=== PATIENT | male | born 1970 | race Caucasian/White ===

== ENCOUNTER 2017-05-05 02:46 | Inpatient (IN) | payer OTHER ==
[2017-05-05] MEDS ORDERED: NORMAL SALINE 1000 ML 1,000 ML IV ONE (03:18)
[2017-05-05] MEDS ORDERED: NORMAL SALINE 1000 ML 1,000 ML IV PRN ×2 (03:18→11:13)
--- NOTE | 2017-05-05 03:24 | ER Document Report ---
ED Extremity Problem, Upper - General Chief Complaint: Fall Injury Stated Complaint: FALL, HIP PAIN Time Seen by Provider: 05/05/17 03:11 Mode of Arrival: Stretcher Information source: Patient Notes: 46 years old male presents today with generalized body aches and pain weak general weakness had a fall recently since then having pain over both hips. He also complained of pain over all the joints including wrists elbows shoulders hips knees and ankles. Says he has a history of osteoarthritis, and osteoporosis. Denies any recent head injury. Denies any fever chills or other constitutional symptoms. Difficult historian TRAVEL OUTSIDE OF THE [place] IN LAST 30 DAYS: No - Related Data Allergies/Adverse Reactions: Penicillins Allergy (Verified 08/18/14 12:03) Home Medications: Current Home Medications No Home Medications 05/05/17 [History] Past Medical History - Social History Smoking Status: Current Every Day Smoker Family History: Reviewed & Not Pertinent Musculoskeltal Medical History: Reports Hx Arthritis Past Surgical History: Reports: Hx Orthopedic Surgery - ACL repair, R elbow, L ankle - Immunizations Hx Diphtheria, Pertussis, Tetanus Vaccination: Yes Review of Systems - Review of Systems Notes: REVIEW OF SYSTEMS: CONSTITUTIONAL : As per history of complain EENT: Denies eye, ear, throat, or mouth pain or symptoms. Denies nasal or sinus congestion or discharge. Denies throat, tongue, or mouth swelling or difficulty swallowing. CARDIOVASCULAR: Denies chest pain. Denies palpitations or racing or irregular heart beat. Denies ankle edema. RESPIRATORY: Denies cough, cold, or chest congestion. Denies shortness of breath, difficulty breathing, or wheezing. GASTROINTESTINAL: Denies abdominal pain or distention. Denies nausea, vomiting , or diarrhea. Denies blood in vomitus, stools, or per rectum. Denies black, tarry stools. Denies constipation. GENITOURINARY: Denies difficulty urinating, painful urination, burning, frequency, blood in urine, or discharge. MUSCULOSKELETAL: As per history of complain SKIN: Denies rash, lesions or sores. HEMATOLOGIC : Denies easy bruising or bleeding. LYMPHATIC: Denies swollen, enlarged glands. NEUROLOGICAL: Denies confusion or altered mental status. Denies passing out or loss of consciousness. Denies dizziness or lightheadedness. Denies headache. Denies weakness or paralysis or loss of use of either side. Denies problems with gait or speech. Denies sensory loss, numbness, or tingling. Denies seizures. PSYCHIATRIC: Denies anxiety or stress. Denies depression, suicidal ideation, or homicidal ideation. ALL OTHER SYSTEMS REVIEWED AND NEGATIVE. Dictation was performed using [employer] voice recognition software PHYSICAL EXAMINATION: GENERAL: Appears sick, cachectic, sunken eyes HEAD: Atraumatic, normocephalic. EYES: Pupils equal round and reactive to light, extraocular movements intact, sclera anicteric, conjunctiva are normal. ENT: Nares patent, oropharynx clear without exudates. Moist mucous membranes. NECK: Normal range of motion, supple without lymphadenopathy LUNGS: Breath sounds clear to auscultation bilaterally and equal. No wheezes rales or rhonchi. HEART: Regular rate and rhythm without murmurs ABDOMEN: Soft, nontender, nondistended abdomen. No guarding, no rebound. No masses appreciated. Musculoskeletal: Right wrist-shows swelling and some very warm and extremely tender no erythema noted. No range of motion could be performed due to pain Right elbow shoulder, right shoulder, left shoulder elbow and wrist are not warm but tender to touch. Bilateral hip tenderness was noted, range of motion was limited due to pain. There were no injuries or swelling noted over the knee and ankle. NEUROLOGICAL: Cranial nerves grossly intact. Normal speech, normal gait. Normal sensory, motor exams PSYCH: Normal mood, normal affect. SKIN: Warm, Dry, normal turgor, no rashes or lesions noted. Physical Exam - Vital signs Vitals: Temp Pulse Resp BP Pulse Ox 99.1 F 119 H 18 134/81 H 100 05/05/17 02:56 05/05/17 02:56 05/05/17 02:56 05/05/17 02:56 05/05/17 02:56 Course - Re-evaluation Re-evalutation: 05/05/17 05:17 This case was discussed with hospitalist, entire lab results were reviewed with the patient and currently being admitted. - Vital Signs Vital signs: Temp Pulse Resp BP Pulse Ox 99.1 F 100 22 H 132/74 H 100 05/05/17 02:56 05/05/17 05:13 05/05/17 05:13 05/05/17 05:13 05/05/17 05:13 - Laboratory Result Diagrams: 05/05/17 03:35 05/05/17 04:00 Laboratory results interpreted by me: 05/05/17 05/05/17 03:35 04:00 WBC 20.6 H RBC 3.74 L Hgb 11.7 L Hct 33.6 L RDW 14.4 H Seg Neuts % (Manual) 85 H Lymphocytes % (Manual) 8 L Monocytes % (Manual) 2 L Abs Neuts (Manual) 18.5 H ESR 79 H Sodium 118.8 L* Chloride 91 L Carbon Dioxide 20 L BUN 26 H Glucose 257 H Uric Acid 2.6 L Calcium 7.7 L Total Bilirubin 1.5 H Direct Bilirubin 0.9 H C-Reactive Protein 215.6 H Total Protein 6.2 L Albumin 2.2 L Critical Care Note - Critical Care Note Total time excluding time spent on procedures (mins): 60 Comments: IV hydration, management of hyponatremia, leukocytosis. Discharge - Discharge Clinical Impression: Hyponatremia, Dehydration, Arthritis, wrist, Myalgia Leukocytosis Qualifiers: Leukocytosis type: leukemoid reaction Qualified Code(s): D72.823 - Leukemoid reaction Condition: Serious Disposition: ADMITTED INPATIENT Admitting Provider: Hospitalist - Dr. Andres Unit Admitted: Medical Floor - Dr. Andres
[2017-05-05] MEDS ORDERED: HYDROCODONE/ACETAMINOPHEN 10-325 MG TABLET PO ONE (03:43)
[2017-05-05] MEDS ORDERED: KETOROLAC TROMETHAMINE INJ/PF 30 MG/1 ML SDV IV ONE (03:43)
[2017-05-05 04:04] LABS: HEMATOCRIT 33.6 % (37.9-51.0); HEMOGLOBIN 11.7 g/dL (13.5-17.0); MEAN CORPUSCULAR HEMOGLOBIN 31.2 pg (27.0-33.4); MEAN CORPUSCULAR HGB CONC 34.7 g/dL (32.0-36.0); MEAN CORPUSCULAR VOLUME 90 fl (80-97); PLATELET COUNT 239 10^3/uL (150-450); RED BLOOD COUNT 3.74 10^6/uL (4.35-5.55); RED CELL DISTRIBUTION WIDTH 14.4 % (11.5-14.0); WHITE BLOOD COUNT 20.6 10^3/uL (4.0-10.5)
[2017-05-05 04:25] LABS: ALANINE AMINOTRANSFERASE 38 U/L (21-72); ALBUMIN 2.2 g/dL (3.5-5.0); ALKALINE PHOSPHATASE 112 U/L (38-126); ANION GAP 8 (5-19); ASPARTATE AMINO TRANSFERASE 32 U/L (17-59); BILIRUBIN,DIRECT 0.9 mg/dL (0.0-0.4); BILIRUBIN,TOTAL 1.5 mg/dL (0.2-1.3); BLOOD UREA NITROGEN 26 mg/dL (7-20); CALCIUM 7.7 mg/dL (8.4-10.2); CARBON DIOXIDE 20 mmol/L (22-30); CHLORIDE 91 mmol/L (98-107); GLUCOSE 257 mg/dL (75-110); POTASSIUM 4.8 mmol/L (3.6-5.0); TOTAL PROTEIN 6.2 g/dL (6.3-8.2); URIC ACID 2.6 mg/dL (3.5-8.5)
[2017-05-05 04:25] LABS: ABSOLUTE LYMPHOCYTES# (MANUAL) 1.6 10^3/uL (0.5-4.7); ABSOLUTE MONOCYTES # (MANUAL) 0.4 10^3/uL (0.1-1.4); ABSOLUTE NEUTROPHILS# (MANUAL) 18.5 10^3/uL (1.7-8.2); BAND NEUTROPHILS % (MANUAL) 5 % (3-5); BASOPHILS % (MANUAL) 0 % (0-2); EOSINOPHILS % (MANUAL) 0 % (0-6); LYMPHOCYTES % (MANUAL) 8 % (13-45); MONOCYTES % (MANUAL) 2 % (3-13); SEGMENTED NEUTROPHILS % (MAN) 85 % (42-78); TOTAL CELLS COUNTED 100; TOXIC GRANULATION 1+; TOXIC VACUOLATION PRESENT
[2017-05-05 04:26] LABS: ANISOCYTOSIS SLIGHT; PLATELET COMMENT ADEQUATE
[2017-05-05 04:41] LABS: C-REACTIVE PROTEIN 215.6 mg/L (<10.0)
[2017-05-05 04:42] LABS: ERYTHROCYTE SEDIMENTATION RATE 79 mm/hr (0-15)
--- NOTE | 2017-05-05 04:52 | RADIOLOGY REPORT (SQ) ---
EXAM DESCRIPTION: HIP BILATERAL CLINICAL HISTORY: 46 years, Male, Pain and swelling COMPARISON: None. NUMBER OF VIEWS:3 LIMITATIONS: None. FINDINGS: No evidence of fracture or dislocation. Mild CAM-type predisposition to femoral acetabular impingement on the right. Mild L4-L5 and L2-L3 disc desiccation. IMPRESSION: No acute findings. 2011 [facility] [employer]- All Rights Reserved
--- NOTE | 2017-05-05 04:56 | RADIOLOGY REPORT (SQ) ---
EXAM DESCRIPTION: WRIST RIGHT 2 VIEWS CLINICAL HISTORY: 46 years, Male, Pain and swelling COMPARISON: None. NUMBER OF VIEWS: 3 LIMITATIONS: None. FINDINGS: There is no evidence of significant bone or joint abnormality and area of indicated symptomatology at the ulnocarpal joint. Distal scaphoid is partially distorted likely due to positioning artifact. If there is pain associated with the scaphoid, consider obtaining dedicated scaphoid radiographic views. IMPRESSION: No acute findings. Limited scaphoid views. 2011 [employer]- All Rights Reserved
--- NOTE | 2017-05-05 05:00 | RADIOLOGY REPORT (SQ) ---
EXAM DESCRIPTION: CHEST PA/LAT CLINICAL HISTORY: 46 years, Male, Pain COMPARISON: None. NUMBER OF VIEWS: 2 LIMITATIONS: None. FINDINGS: Adequate lung volumes, prominent interstitium, normal cardiac silhouette, and intact bony thorax. IMPRESSION: No acute cardiopulmonary findings. 2011 [employer]- All Rights Reserved
[2017-05-05 05:04] LABS: SODIUM 118.8 mmol/L (137-145)
[2017-05-05] MEDS ORDERED: VANCOMYCIN HCL INJ 1000 MG VIAL ONE (05:23)
[2017-05-05] MEDS ORDERED: MAGNESIUM HYDROXIDE SUSP 30 ML UDCUP PO PRN (05:29)
[2017-05-05] MEDS ORDERED: NORMAL SALINE 1000 ML 1,000 ML IV SCH (05:30)
[2017-05-05] MEDS ORDERED: VANCOMYCIN HCL 0 MG in DEXTROSE 5%-WATER 250 ML IV NR (05:30)
[2017-05-05] MEDS ORDERED: HYDRALAZINE HCL INJ/PF 20 MG/1 ML SDV IV PRN (05:35)
[2017-05-05] MEDS ORDERED: DEXTROSE 50%-WATER 25 GM/50 ML DISP.SYRIN IV PRN ×2 (05:40)
[2017-05-05] MEDS ORDERED: DEXTROSE 40% GEL 15 GM TUBE PO PRN ×2 (05:40)
[2017-05-05] MEDS ORDERED: GLUCAGON,HUMAN RECOMB 1 MG INJ IM PRN (05:40)
[2017-05-05] MEDS ORDERED: VANCOMYCIN HCL INJ 1000 MG VIAL IV PRN (05:58)
[2017-05-05] MEDS ORDERED: CEFTRIAXONE 1 GM/D5W RTU 1 GM/50 ML RTUPB IV ONE (06:00)
[2017-05-05] MEDS ORDERED: VANCOMYCIN HCL 1,250 MG in DEXTROSE 5%-WATER 250 ML IV ONE (06:00)
[2017-05-05] MEDS ORDERED: NALOXONE HCL INJ/PF 0.4 MG/1 ML SDV ONE (07:57)
[2017-05-05] MEDS: IPRATROPIUM/ALBUTEROL 0.5-2.5 MG/3 ML AMPUL NEB SCH ×2 (09:02→16:00)
--- NOTE | 2017-05-05 09:03 | RADIOLOGY REPORT (SQ) ---
EXAM DESCRIPTION: CT HEAD WITHOUT COMPLETED DATE/TIME: 05/05/2017 8:24 am REASON FOR STUDY: altered mental status COMPARISON: None. TECHNIQUE: Axial images acquired through the brain without intravenous contrast. Images reviewed wi th bone, brain and subdural windows. Images stored on PACS. All CT scanners at this facility use dose modulation, iterative reconstruction, and/or weight based d osing when appropriate to reduce radiation dose to as low as reasonably achievable (ALARA). [facility]: Dose Right [facility]: CareDose [facility]: Dose Right [facility]: Teradose 4D [facility]: [employer] RADIATION DOSE: CT Rad equipment meets quality standard of care and radiation dose reduction techniq ues were employed. CTDIvol: 49.0 mGy. DLP: 1371 mGy-cm. mGy. LIMITATIONS: Motion artifact, patient scanned twice FINDINGS: On images without motion artifact, there is no gross acute intracranial hemorrhage, mass e ffect, or midline shift. No hydrocephalus. No gross skull fracture. Paranasal sinuses clear. IMPRESSION: Limited negative study EVIDENCE OF ACUTE STROKE: NO. COMMENT: Quality ID # [id number]: Final reports with documentation of one or more dose reduction techniques (e.g., Automated exposure control, adjustment of the mA and/or kV according to patient size, use of iterative reconstruction technique) TECHNICAL DOCUMENTATION: JOB ID: [id number] [employer]- All Rights Reserved
--- NOTE | 2017-05-05 10:24 | RADIOLOGY REPORT (SQ) ---
EXAM DESCRIPTION: L SPINE WHOLE COMPLETED DATE/TIME: 05/05/2017 10:09 am REASON FOR STUDY: Back pain COMPARISON: None. NUMBER OF VIEWS: Five views including obliques. TECHNIQUE: AP, lateral, oblique, and sacral radiographic images acquired of the lumbar spine. LIMITATIONS: None. FINDINGS: MINERALIZATION: Normal. SEGMENTATION: Normal. No transitional anatomy. ALIGNMENT: Normal. VERTEBRAE: Maintained height. No fracture or worrisome bone lesion. DISCS: Disc space loss of height at T11-12, T12-L1, L4-5 with mild anterior osteophyte formation. POSTERIOR ELEMENTS: Pedicles and facets are intact. No pars defect or posterior arch defects. HARDWARE: None in the spine. PARASPINAL SOFT TISSUES: Normal. PELVIS: SI joints unremarkable. OTHER: No other significant finding. IMPRESSION: No acute fracture or malalignment. Multilevel disc space loss of height with anterior osteophyte formation TECHNICAL DOCUMENTATION: JOB ID: [id number] [employer]- All Rights Reserved
[2017-05-05 10:31] LABS: ANION GAP 10 (5-19); BLOOD UREA NITROGEN 32 mg/dL (7-20); CALCIUM 7.8 mg/dL (8.4-10.2); CARBON DIOXIDE 20 mmol/L (22-30); CHLORIDE 93 mmol/L (98-107); GLUCOSE 219 mg/dL (75-110); POTASSIUM 4.5 mmol/L (3.6-5.0); SODIUM 122.7 mmol/L (137-145)
--- NOTE | 2017-05-05 10:41 | PDOC CONSULTATION ---
History of Present Illness Admission Date/PCP: 05/05/17 05:33 Patient complains of: Joint pains and low back pain History of Present Illness: SUSHIL JARA is a 46 year old male who presents to emergency room with joint pain throughout his body, generalized weakness and myalgia. He apparently sustained a fall and according to his significant this occurred about 2 days ago and has been having pain ever since. Denies specific injury but has been lethargic since it began. Otherwise patient is poor historian unable to obtain full HPI. The patient mainly complains of pain in his low back to me today. Past Medical History Musculoskeltal Medical History: Reports: Arthritis Psychiatric Medical History: Denies: Depression Past Surgical History Past Surgical History: Reports: Orthopedic Surgery - ACL repair, R elbow, L ankle Social History Smoking Status: Current Every Day Smoker Cigarettes Packs Per Day: 1 Frequency of Alcohol Use: Rare Hx Recreational Drug Use: Yes Drugs: Heroin, Methadone Hx Prescription Drug Abuse: No - Advance Directive Resuscitation Status: Full Code Family History Family History: Reviewed & Not Pertinent Parental Family History Reviewed: No Children Family History Reviewed: Unknown Sibling(s) Family History Reviewed.: Unknown Medication/Allergy Home Medications: No Home Medications 05/05/17 Allergies/Adverse Reactions: Penicillins Allergy (Verified 08/18/14 12:03) Review of Systems Constitutional: PRESENT: fatigue, weakness. ABSENT: chills, fever(s), headache( s), weight gain, weight loss Eyes: ABSENT: visual disturbances Ears: ABSENT: hearing changes Cardiovascular: ABSENT: chest pain, dyspnea on exertion, edema, orthropnea, palpitations Respiratory: ABSENT: cough, hemoptysis Gastrointestinal: ABSENT: abdominal pain, constipation, diarrhea, hematemesis, hematochezia, nausea, vomiting Genitourinary: ABSENT: dysuria, hematuria Musculoskeletal: PRESENT: joint swelling, muscle weakness Integumentary: ABSENT: rash, wounds Neurological: ABSENT: abnormal gait, abnormal speech, confusion, dizziness, focal weakness, syncope Psychiatric: ABSENT: anxiety, depression, homidical ideation, suicidal ideation Endocrine: ABSENT: cold intolerance, heat intolerance, menstrual abnormalities, polydipsia, polyuria Hematologic/Lymphatic: ABSENT: easy bleeding, easy bruising, lymphadenopathy Physical Exam Vital Signs: Temp Pulse Resp BP Pulse Ox 97.5 F 75 20 139/77 H 98 05/05/17 08:12 05/05/17 09:00 05/05/17 09:00 05/05/17 08:12 05/05/17 09:00 General appearance: PRESENT: disheveled, well-developed, well-nourished Head exam: PRESENT: atraumatic, normocephalic Eye exam: PRESENT: conjunctiva pink, EOMI, PERRLA. ABSENT: scleral icterus Ear exam: PRESENT: normal external ear exam Mouth exam: PRESENT: moist, tongue midline Teeth exam: PRESENT: poor dentation Neck exam: PRESENT: full ROM. ABSENT: carotid bruit, JVD, lymphadenopathy, thyromegaly Respiratory exam: PRESENT: unlabored Cardiovascular exam: PRESENT: RRR. ABSENT: diastolic murmur, rubs, systolic murmur Pulses: PRESENT: normal dorsalis pedis pul, +2 pedal pulses bilateral Vascular exam: PRESENT: normal capillary refill GI/Abdominal exam: PRESENT: normal bowel sounds, tenderness - Along the right lower quadrant. ABSENT: distended, guarding, mass, organolmegaly, rebound Rectal exam: PRESENT: deferred Extremities exam: PRESENT: other Musculoskeletal exam: PRESENT: other - Examination of all extremities demonstrate mild swelling along the dorsum of the right wrist no erythema noted. Patient has some tenderness on the distal ulna but no pain with pronation and supination or range of motion. Patient has no pain with ankle, knee elbow or range of motion. Do not appreciate effusion of the wrists, elbow or knees. Range of motion of the hips do elicit some discomfort patient has intact straight leg raise. Intact plantar flexion/dorsiflexion. Occasionally with internal rotation occasionally without internal rotation. Difficult exam given patient's lethargy. No conspicuous skin lesions appreciated. No significant bone tenderness throughout. Maximal point tenderness along the left SI joint and flank. No skin changes or abnormality appreciated on inspection. Neurological exam: PRESENT: alert, awake, oriented to person, oriented to place , oriented to time, oriented to situation, CN II-XII grossly intact. ABSENT: motor sensory deficit Psychiatric exam: PRESENT: appropriate affect, normal mood. ABSENT: homicidal ideation, suicidal ideation Skin exam: PRESENT: dry, intact, warm. ABSENT: cyanosis, rash Results Laboratory Results: 05/05/17 09:24 05/05/17 09:24 Sodium 122.7 L Potassium 4.5 Chloride 93 L Carbon Dioxide 20 L Anion Gap 10 BUN 32 H Creatinine 0.76 Est GFR ( Amer) > 60 Est GFR (Non-Af Amer) > 60 Glucose 219 H Calcium 7.8 L Impressions: Head CT 05/05/17 00:00 IMPRESSION: Limited negative study EVIDENCE OF ACUTE STROKE: NO. Lumbar Spine X-Ray 05/05/17 00:00 IMPRESSION: No acute fracture or malalignment. Multilevel disc space loss of height with anterior osteophyte formation Hip X-Ray 05/05/17 03:18 IMPRESSION: No acute findings. 2010 [employer]- All Rights Reserved Wrist X-Ray 05/05/17 03:18 IMPRESSION: No acute findings. Limited scaphoid views. 2010 [employer] All Rights Reserved Chest X-Ray 05/05/17 03:23 IMPRESSION: No acute cardiopulmonary findings. 2010 [employer]- All Rights Reserved Status: Image reviewed by me - I have reviewed patient's radiographs of his hips and right wrist. No osseous abnormality appreciated. Normal soft tissue shadows. Assessment & Plan - Diagnosis (1) Myalgia Is this a current diagnosis for this admission?: Yes Plan: Patient has evidence of polyarthralgias and myalgias it is somewhat concerning with his leukocytosis and elevated sed rate and CRP. But at this juncture unable to elicit discomfort throughout his joints despite the emergency room physicians report of significant pain and swelling of his right wrist I am unable to elicit significant discomfort on examination of this today. There is some mild swelling but would anticipate the patient had septic arthritis it was causing significantly more pain with more swelling as well. His major area of complaint was along his SI joint which there is some degenerative changes on radiographs but at this point I have recommended lumbar spine x-ray which may demonstrate abnormality possibility of underlying discitis or vertebral osteomyelitis would remain in the differential diagnosis.
[2017-05-05] MEDS: HEPARIN SOD (PORCINE) 5,000 UNIT/ML 1 ML SYRINGE SUBCUT SCH ×3 (12:29→22:32)
[2017-05-05 12:43] LABS: ARTERIAL BLOOD BASE EXCESS -1.1 mmol/L; ARTERIAL BLOOD FIO2 40%; ARTERIAL BLOOD HCO3 22.3 mmol/L (20-26); ARTERIAL BLOOD O2 SATURATION 99.2 % (94-98); ARTERIAL BLOOD PCO2 33.1 mmHg (35-45); ARTERIAL BLOOD PH 7.45 (7.35-7.45); ARTERIAL BLOOD PO2 168.6 mmHg (80-100); ARTERIAL BLOOD TOTAL CO2 23.4 mmol/L (23-27)
[2017-05-05 12:48] LABS: AMORPHOUS SEDIMENT,URINE TRACE /HPF; APPEARANCE,URINE SLIGHTLY-CLOUDY; BILIRUBIN,URINE NEGATIVE (NEGATIVE); COLOR,URINE AMBER; GLUCOSE, URINE >=500 mg/dL (NEGATIVE); KETONES,URINE NEGATIVE (NEGATIVE); LEUKOCYTE ESTERASE,URINE NEGATIVE (NEGATIVE); NITRITE,URINE NEGATIVE (NEGATIVE); PROTEIN,URINE 30 mg/dL (NEGATIVE); URINE SPECIFIC GRAVITY 1.022
[2017-05-05 13:24] LABS: ANION GAP 8 (5-19); BLOOD UREA NITROGEN 34 mg/dL (7-20); CARBON DIOXIDE 20 mmol/L (22-30); CHLORIDE 95 mmol/L (98-107); GLUCOSE 186 mg/dL (75-110); SODIUM 123.4 mmol/L (137-145)
[2017-05-05 13:25] LABS: URINE BARBITURATES SCREEN NEGATIVE; URINE BENZODIAZEPINES SCREEN NEGATIVE; URINE COCAINE SCREEN NEGATIVE; URINE MARIJUANA (THC) SCREEN NEGATIVE; URINE METHADONE SCREEN NEGATIVE; URINE PHENCYCLIDINE SCREEN NEGATIVE
[2017-05-05 13:37] LABS: POTASSIUM 5.9 mmol/L (3.6-5.0)
--- NOTE | 2017-05-05 14:00 | XCELERA REPORT ---
[address] [address] Transthoracic Echocardiogram Report Name: SUSHIL JARA Age: 46 yrs Gender: Male : 1970 Patient Status: Inpatient Patient Location: [address] [place], [place] [address] Study Date: 05/05/2017 10:40 AM Height: 69 in Weight: 136 lb BSA: 1.8 m2 Procedure: A two-dimensional transthoracic echocardiogram with color flow and Doppler was performed. Study Quality: Fair. Reason For Study: iv drug use w murmur History: iv drug use w murmur. Ordering Physician: VALERIA AGUIRRE Performed By: Liliya Bustillos Interpretation Summary The left ventricle is normal in size. There is normal left ventricular wall thickness. LV EF is > than 60% Left ventricular systolic function is normal. Doppler measurements suggest normal left ventricular diastolic function The left ventricular wall motion is normal. There is no thrombus. There is no ventricular septal defect visualized. The right ventricle is normal in size and function. The right atrium is normal. The left atrial size is normal. The interatrial septum is intact with no evidence for an atrial septal defect. There is no evidence of mitral valve prolapse. There is no vegetation seen on the mitral valve. There is no mitral valve stenosis. There is a trace amount of mitral regurgitation There is no aortic valvular vegetation. There is no aortic valve stenosis There is no LVOT obstruction. No aortic regurgitation is present. There is no tricuspid stenosis. There is a mild amount of tricuspid regurgitation Right ventricular systolic pressure is normal. RVSP is 24 mm of Hg , with RA mean of 5. There is no pericardial effusion. MMode/2D Measurements & Calculations RVDd: 2.1 cm LVIDd: 4.6 cm FS: 31.1 % Ao root diam: 3.0 cm IVSd: 0.96 cm LVIDs: 3.2 cm EDV(Teich): 97.7 ml LVPWd: 0.97 cm ESV(Teich): 40.2 ml Ao root area: 7.2 cm2 EF(Teich): 58.8 % Doppler Measurements & Calculations MV E max wen: MV dec slope: Ao V2 max: LV V1 max P.0 cm/sec 148.2 cm/sec 7.6 mmHg MV A max wen: 498.5 cm/sec2 Ao max PG: LV V1 max: 64.4 cm/sec MV dec time: 8.8 mmHg 138.1 cm/sec MV E/A: 1.6 0.21 sec PA V2 max: TR max wen: 105.5 cm/sec 218.0 cm/sec PA max P.5 mmHgTR max P.0 mmHg Left Ventricle The left ventricle is normal in size. There is normal left ventricular wall thickness. LV EF is > than 60%. Left ventricular systolic function is normal. Doppler measurements suggest normal left ventricular diastolic function. The left ventricular wall motion is normal. There is no thrombus. There is no ventricular septal defect visualized. Right Ventricle The right ventricle is normal in size and function. Atria The right atrium is normal. The left atrial size is normal. The interatrial septum is intact with no evidence for an atrial septal defect. Mitral Valve There is no evidence of mitral valve prolapse. There is no vegetation seen on the mitral valve. There is no mitral valve stenosis. There is a trace amount of mitral regurgitation. Aortic Valve There is no aortic valvular vegetation. There is no aortic valve stenosis. There is no LVOT obstruction. No aortic regurgitation is present. Tricuspid Valve There is no tricuspid stenosis. There is a mild amount of tricuspid regurgitation. Right ventricular systolic pressure is normal. RVSP is 24 mm of Hg , with RA mean of 5. Pulmonic Valve There is no pulmonic valvular stenosis. There is no pulmonic valvular regurgitation. Great Vessels The aortic root is normal size. Effusions There is no pericardial effusion. : VALERIA AGUIRRE > Emilie Bustillos
--- NOTE | 2017-05-05 14:31 | Progress Note ---
Provider Note Provider Note: I have reviewed patient's lumbar spine films which are negative in terms of pathologic lesion to indicate underlying discitis or vertebral osteomyelitis. Currently do not appreciate findings of septic arthritis throughout his examination. Will sign off thank you for this consultation please contact me if issues arise concerning this patient.
--- NOTE | 2017-05-05 15:08 | PDOC PROGRESS REPORT ---
Subjective Progress Note for:: 05/05/17 Subjective:: Pt is seen on morning rounds for follow up of sepsis. He is found resting in bed. He is somnolent and difficult to arouse, responding only to a sternal rub. He does not respond to or answer questions at this time. A patient's friend and/or family member who introduces herself as a girlfriend, fianc, and at different times of the conversation states that he was feeling well earlier this week but fell approximately 2 days ago. She states that since that time he has complained of multiple joint pain, especially to the knees and wrists. She does state that the patient has recently used heroin and methamphetamines. She denies benzodiazepine abuse. She states that the last time he had alcohol was approximately 6 weeks ago, but prior to that he was a heavy drinker. Reason For Visit: SEPSIS ENDOCARDITIS, POLYARTHRITIS, IV DRUG ABUSE Physical Exam Vital Signs: Temp Pulse Resp BP Pulse Ox 97.4 F 104 H 22 H 154/95 H 100 05/05/17 12:14 05/05/17 12:14 05/05/17 12:14 05/05/17 12:14 05/05/17 12:14 Pulse Oximeter Continuous Start: 05/05/17 11: 26 Freq: RTQ4 Status: Active Document 05/05/17 12:00 [facility] (Rec: 05/05/17 12:22 LDA [email or web address]) Pulse Oximetry Assessment Oxygen Saturation (92-100) 100 Oxygen Delivery Method Bi-pap Fraction of Inspired Oxygen (FIO2) 40 Equipment Usage Initial Set Up Continuous Pulse Oximeter 24 Hour Charge Charge Now Continuous SpO2 Machine # [id number] Intake & Output 05/04/17 05/05/17 05/06/17 06:59 06:59 06:59 Output Total 650 Balance -650 Weight 72.4 kg General appearance: PRESENT: no acute distress, disheveled, well-developed, well -nourished Head exam: PRESENT: atraumatic, normocephalic Eye exam: PRESENT: conjunctiva pink, EOMI, PERRLA. ABSENT: scleral icterus Ear exam: PRESENT: normal external ear exam Mouth exam: PRESENT: moist, tongue midline Neck exam: ABSENT: carotid bruit, JVD, lymphadenopathy, thyromegaly Respiratory exam: PRESENT: clear to auscultation antonio, rhonchi - throughout, symmetrical, unlabored, other - snoring respirations with 10-15 second pauses noted. ABSENT: rales, wheezes Cardiovascular exam: PRESENT: RRR, +S1, +S2. ABSENT: diastolic murmur, rubs, systolic murmur Pulses: PRESENT: normal dorsalis pedis pul Vascular exam: PRESENT: normal capillary refill GI/Abdominal exam: PRESENT: normal bowel sounds, soft. ABSENT: distended, guarding, mass, organolmegaly, rebound, tenderness Rectal exam: PRESENT: deferred Extremities exam: PRESENT: full ROM. ABSENT: calf tenderness, clubbing, pedal edema Neurological exam: PRESENT: other - somnolent, responsive to sternal rub. ABSENT: motor sensory deficit Psychiatric exam: PRESENT: appropriate affect, normal mood. ABSENT: homicidal ideation, suicidal ideation Skin exam: PRESENT: dry, intact, warm. ABSENT: cyanosis, rash Results Laboratory Results: 05/05/17 13:03 05/05/17 05/05/17 05/05/17 09:24 12:02 12:10 Carbonic Acid 1.00 L HCO3/H2CO3 Ratio 22:1 ABG pH 7.45 ABG pCO2 33.1 L ABG pO2 168.6 H ABG HCO3 22.3 ABG O2 Saturation 99.2 H ABG Base Excess -1.1 FiO2 40% Sodium 122.7 L Potassium 4.5 Chloride 93 L Carbon Dioxide 20 L Anion Gap 10 BUN 32 H Creatinine 0.76 Est GFR ( Amer) > 60 Est GFR (Non-Af Amer) > 60 Glucose 219 H Calcium 7.8 L Urine Color DEJUAN Urine Appearance SLIGHTLY-CLOUDY Urine pH 5.0 Ur Specific [place] 1.022 Urine Protein 30 H Urine Glucose (UA) >=500 H Urine Ketones NEGATIVE Urine Blood MODERATE H Urine Nitrite NEGATIVE Ur Leukocyte Esterase NEGATIVE Urine WBC (Auto) 5 Urine RBC (Auto) 4 05/05/17 13:03 Carbonic Acid HCO3/H2CO3 Ratio ABG pH ABG pCO2 ABG pO2 ABG HCO3 ABG O2 Saturation ABG Base Excess FiO2 Sodium 123.4 L Potassium 5.9 H D Chloride 95 L Carbon Dioxide 20 L Anion Gap 8 BUN 34 H Creatinine 0.67 Est GFR ( Amer) > 60 Est GFR (Non-Af Amer) > 60 Glucose 186 H Calcium 8.0 L Urine Color Urine Appearance Urine pH Ur Specific [place] Urine Protein Urine Glucose (UA) Urine Ketones Urine Blood Urine Nitrite Ur Leukocyte Esterase Urine WBC (Auto) Urine RBC (Auto) Impressions: Head CT 05/05/17 00:00 IMPRESSION: Limited negative study EVIDENCE OF ACUTE STROKE: NO. Lumbar Spine X-Ray 05/05/17 00:00 IMPRESSION: No acute fracture or malalignment. Multilevel disc space loss of height with anterior osteophyte formation Hip X-Ray 05/05/17 03:18 IMPRESSION: No acute findings. 2010 [employer]- All Rights Reserved Wrist X-Ray 05/05/17 03:18 IMPRESSION: No acute findings. Limited scaphoid views. 2010 [employer] All Rights Reserved Chest X-Ray 05/05/17 03:23 IMPRESSION: No acute cardiopulmonary findings. 2010 [employer]- All Rights Reserved Assessment & Plan - Diagnosis (1) Acute metabolic encephalopathy Is this a current diagnosis for this admission?: Yes Plan: Likely secondary to sepsis and hyponatremia. Aspirations, seizure, and fall precautions in place. Head CT negative for acute processes; no evidence of stroke. LFTs normal. Will provide supportive care. (2) Hyponatremia Is this a current diagnosis for this admission?: Yes Plan: Trending upward (118.8--> 122.7--> 123.4) Pt is currently receiving IVF. BMP scheduled q4 hours. (3) Leukocytosis Qualifiers: Leukocytosis type: leukemoid reaction Qualified Code(s): D72.823 - Leukemoid reaction Is this a current diagnosis for this admission?: Yes Plan: Leukocytosis 20.6. Unclear etiology. Orthopedics were consulted for consideration of septic arthritis and have since determined this to be unlikely and have signed off. Blood and urine cultures are pending. Echocardiogram was completed; no evidence of vegetation. Pt will likely require a DOMINGO in the near future to further asses for endocarditis. He has been empirically placed on Vancomycin and Rocephin. (4) Myalgia Is this a current diagnosis for this admission?: Yes Plan: Patient with complaint of polyarticular arthritic pains. Initial workup revealed leukocytosis of 20.6. Imaging of the lumbar spine, lateral hips and right wrist were obtained: No acute findings. Urine for gonorrhea is pending to evaluate for gonococcal arthritis. Septic arthritis has been ruled out by orthopedics. (5) Amphetamine abuse Is this a current diagnosis for this admission?: Yes
[2017-05-05] MEDS: VANCOMYCIN HCL 750 MG in DEXTROSE 5%-WATER 250 ML IV SCH ×2 (15:15→22:30)
[2017-05-05] MEDS: DOCUSATE SODIUM 100 MG CAPSULE PO SCH ×2 (15:15→17:27)
[2017-05-05] MEDS ORDERED: SODIUM POLYSTYRENE SULFONATE 15 GM/60 ML PO ONE (15:30)
[2017-05-05] MEDS: ACETAMINOPHEN 325 MG TABLET PO PRN (15:47)
[2017-05-05 17:17] LABS: ANION GAP 8 (5-19); BLOOD UREA NITROGEN 31 mg/dL (7-20); CALCIUM 7.6 mg/dL (8.4-10.2); CARBON DIOXIDE 20 mmol/L (22-30); CHLORIDE 92 mmol/L (98-107); GLUCOSE 257 mg/dL (75-110)
[2017-05-05] MEDS: INSULIN LISPRO 100 UNIT/ML 3 ML VIAL SUBCUT PRN ×2 (17:24→22:31)
[2017-05-05 17:28] LABS: POTASSIUM 4.6 mmol/L (3.6-5.0)
[2017-05-05 17:30] LABS: SODIUM 119.7 mmol/L (137-145)
[2017-05-05 21:20] LABS: ANION GAP 10 (5-19); BLOOD UREA NITROGEN 28 mg/dL (7-20); CALCIUM 7.5 mg/dL (8.4-10.2); CARBON DIOXIDE 17 mmol/L (22-30); CHLORIDE 95 mmol/L (98-107); GLUCOSE 210 mg/dL (75-110)
[2017-05-06] MEDS: IPRATROPIUM/ALBUTEROL 0.5-2.5 MG/3 ML AMPUL NEB SCH ×4 (00:18→23:36)
[2017-05-06 01:00] LABS: ANION GAP 6 (5-19); BLOOD UREA NITROGEN 23 mg/dL (7-20); CALCIUM 7.4 mg/dL (8.4-10.2); CARBON DIOXIDE 21 mmol/L (22-30); CHLORIDE 96 mmol/L (98-107); GLUCOSE 198 mg/dL (75-110); POTASSIUM 4.1 mmol/L (3.6-5.0); SODIUM 123.4 mmol/L (137-145)
[2017-05-06] MEDS: KETOROLAC TROMETHAMINE INJ/PF 30 MG/1 ML SDV IV PRN ×3 (03:32→23:07)
[2017-05-06] MEDS ORDERED: NALOXONE HCL INJ/PF 0.4 MG/1 ML SDV ONE (04:58)
[2017-05-06] MEDS ORDERED: NALOXONE HCL INJ/PF 0.4 MG/1 ML SDV IV ONE (05:45)
[2017-05-06 05:48] LABS: HEMATOCRIT 30.9 % (37.9-51.0); HEMOGLOBIN 10.6 g/dL (13.5-17.0); MEAN CORPUSCULAR HEMOGLOBIN 30.7 pg (27.0-33.4); MEAN CORPUSCULAR HGB CONC 34.4 g/dL (32.0-36.0); MEAN CORPUSCULAR VOLUME 89 fl (80-97); PLATELET COUNT 190 10^3/uL (150-450); RED BLOOD COUNT 3.46 10^6/uL (4.35-5.55); RED CELL DISTRIBUTION WIDTH 14.2 % (11.5-14.0); WHITE BLOOD COUNT 15.8 10^3/uL (4.0-10.5)
[2017-05-06] MEDS: VANCOMYCIN HCL 750 MG in DEXTROSE 5%-WATER 250 ML IV SCH ×2 (05:51→14:22)
[2017-05-06] MEDS: HEPARIN SOD (PORCINE) 5,000 UNIT/ML 1 ML SYRINGE SUBCUT SCH ×3 (05:52→21:34)
[2017-05-06 05:59] LABS: ANION GAP 8 (5-19); BLOOD UREA NITROGEN 19 mg/dL (7-20); CALCIUM 7.2 mg/dL (8.4-10.2); CARBON DIOXIDE 20 mmol/L (22-30); CHLORIDE 95 mmol/L (98-107); GLUCOSE 195 mg/dL (75-110); POTASSIUM 3.9 mmol/L (3.6-5.0); SODIUM 122.7 mmol/L (137-145)
[2017-05-06 06:50] LABS: ABSOLUTE LYMPHOCYTES# (MANUAL) 0.9 10^3/uL (0.5-4.7); ABSOLUTE MONOCYTES # (MANUAL) 0.3 10^3/uL (0.1-1.4); ABSOLUTE NEUTROPHILS# (MANUAL) 14.4 10^3/uL (1.7-8.2); BAND NEUTROPHILS % (MANUAL) 8 % (3-5); BASOPHILS % (MANUAL) 0 % (0-2); EOSINOPHILS % (MANUAL) 1 % (0-6); LYMPHOCYTES % (MANUAL) 6 % (13-45); MONOCYTES % (MANUAL) 2 % (3-13); SEGMENTED NEUTROPHILS % (MAN) 83 % (42-78); TOTAL CELLS COUNTED 100
[2017-05-06 06:51] LABS: TOXIC GRANULATION SLIGHT; TOXIC VACUOLATION PRESENT
[2017-05-06 06:52] LABS: ANISOCYTOSIS SLIGHT; PLATELET COMMENT ADEQUATE
[2017-05-06] MEDS: CEFTRIAXONE 1 GM/D5W RTU 1 GM/50 ML RTUPB IV SCH (08:35)
[2017-05-06] MEDS: INSULIN LISPRO 100 UNIT/ML 3 ML VIAL SUBCUT PRN ×3 (08:49→21:35)
[2017-05-06] MEDS: DOCUSATE SODIUM 100 MG CAPSULE PO SCH ×2 (09:02→17:52)
[2017-05-06] MEDS: NORMAL SALINE 1000 ML 1,000 ML IV PRN ×2 (10:45→17:52)
--- NOTE | 2017-05-06 13:07 | PDOC PROGRESS REPORT ---
Subjective Progress Note for:: 05/06/17 Subjective:: Pt is seen on morning rounds for follow up. He is found resting in bed. He is somnolent and difficult to arouse, responding to sternal rub. He does wake and briefly answer questions. He initially states that he is feeling "just fine," but then tells me that he is in excruciating pain to his shoulders, hips, lower back and right knee. However, he then falls back to sleep mid sentence. The patient and significant other are informed that there are questions of ongoing drug use in the hospital room, to which they both deny. They are advised that any further suspicious behavior will result in limitations on visitors and potentially a request for law enforcement to search the room. The have no additional questions or concerns today. Reason For Visit: SEPSIS ENDOCARDITIS, POLYARTHRITIS, IV DRUG ABUSE Physical Exam Vital Signs: Temp Pulse Resp BP Pulse Ox 98.3 F 102 H 26 H 144/74 H 100 05/06/17 07:38 05/06/17 07:52 05/06/17 12:43 05/06/17 07:38 05/06/17 12:43 Pulse Oximeter Continuous Start: 05/05/17 11: 26 Freq: RTQ4 Status: Active Document 05/06/17 12:43 TPO (Rec: 05/06/17 12:44 TPO [email or web address]) Pulse Oximetry Assessment Oxygen Saturation (92-100) 100 Oxygen Delivery Method Bi-pap Fraction of Inspired Oxygen (FIO2) 40 Equipment Usage Equipment in Use Continuous SpO2 Machine # 11 Intake & Output 05/05/17 05/06/17 05/07/17 06:59 06:59 06:59 Intake Total 4736 Output Total 2500 Balance 2236 Weight 77.3 kg General appearance: PRESENT: no acute distress, disheveled, well-developed, well -nourished Head exam: PRESENT: atraumatic, normocephalic Eye exam: PRESENT: conjunctiva pink, EOMI, PERRLA. ABSENT: scleral icterus Ear exam: PRESENT: normal external ear exam Mouth exam: PRESENT: moist, tongue midline Neck exam: ABSENT: carotid bruit, JVD, lymphadenopathy, thyromegaly Respiratory exam: PRESENT: rhonchi, symmetrical, unlabored. ABSENT: rales, wheezes Cardiovascular exam: PRESENT: RRR, tachycardia. ABSENT: diastolic murmur, rubs , systolic murmur Pulses: PRESENT: normal dorsalis pedis pul Vascular exam: PRESENT: normal capillary refill GI/Abdominal exam: PRESENT: normal bowel sounds, soft. ABSENT: distended, guarding, mass, organolmegaly, rebound, tenderness Rectal exam: PRESENT: deferred Extremities exam: PRESENT: full ROM. ABSENT: calf tenderness, clubbing, pedal edema Neurological exam: PRESENT: oriented to person, oriented to place, oriented to situation, CN II-XII grossly intact, other - arousable. ABSENT: oriented to time, motor sensory deficit Psychiatric exam: PRESENT: appropriate affect, normal mood. ABSENT: homicidal ideation, suicidal ideation Skin exam: PRESENT: dry, intact, warm. ABSENT: cyanosis, rash Results Laboratory Results: 05/06/17 05:33 05/06/17 05:33 05/05/17 05/05/17 05/05/17 12:10 13:03 16:40 WBC RBC Hgb Hct MCV MCH MCHC RDW Plt Count Seg Neutrophils % Lymphocytes % Monocytes % Eosinophils % Basophils % Absolute Neutrophils Absolute Lymphocytes Absolute Monocytes Absolute Eosinophils Absolute Basophils Sodium 123.4 L 119.7 L* Potassium 5.9 H D 4.6 D Chloride 95 L 92 L Carbon Dioxide 20 L 20 L Anion Gap 8 8 BUN 34 H 31 H Creatinine 0.67 0.67 Est GFR ( Amer) > 60 > 60 Est GFR (Non-Af Amer) > 60 > 60 Glucose 186 H 257 H Calcium 8.0 L 7.6 L Urine Color DEJUAN Urine Appearance SLIGHTLY-CLOUDY Urine pH 5.0 Ur Specific [place] 1.022 Urine Protein 30 H Urine Glucose (UA) >=500 H Urine Ketones NEGATIVE Urine Blood MODERATE H Urine Nitrite NEGATIVE Ur Leukocyte Esterase NEGATIVE Urine WBC (Auto) 5 Urine RBC (Auto) 4 05/05/17 05/06/17 05/06/17 20:43 00:31 05:33 WBC 15.8 H RBC 3.46 L Hgb 10.6 L Hct 30.9 L MCV 89 MCH 30.7 MCHC 34.4 RDW 14.2 H Plt Count 190 Seg Neutrophils % Not Reportable Lymphocytes % Not Reportable Monocytes % Not Reportable Eosinophils % Not Reportable Basophils % Not Reportable Absolute Neutrophils Not Reportable Absolute Lymphocytes Not Reportable Absolute Monocytes Not Reportable Absolute Eosinophils Not Reportable Absolute Basophils Not Reportable Sodium 122.0 L 123.4 L Potassium 4.0 4.1 Chloride 95 L 96 L Carbon Dioxide 17 L 21 L Anion Gap 10 6 BUN 28 H 23 H Creatinine 0.56 0.52 Est GFR ( Amer) > 60 > 60 Est GFR (Non-Af Amer) > 60 > 60 Glucose 210 H 198 H Calcium 7.5 L 7.4 L Urine Color Urine Appearance Urine pH Ur Specific [place] Urine Protein Urine Glucose (UA) Urine Ketones Urine Blood Urine Nitrite Ur Leukocyte Esterase Urine WBC (Auto) Urine RBC (Auto) 05/06/17 05:33 WBC RBC Hgb Hct MCV MCH MCHC RDW Plt Count Seg Neutrophils % Lymphocytes % Monocytes % Eosinophils % Basophils % Absolute Neutrophils Absolute Lymphocytes Absolute Monocytes Absolute Eosinophils Absolute Basophils Sodium 122.7 L Potassium 3.9 Chloride 95 L Carbon Dioxide 20 L Anion Gap 8 BUN 19 Creatinine 0.50 L Est GFR ( Amer) > 60 Est GFR (Non-Af Amer) > 60 Glucose 195 H Calcium 7.2 L Urine Color Urine Appearance Urine pH Ur Specific [place] Urine Protein Urine Glucose (UA) Urine Ketones Urine Blood Urine Nitrite Ur Leukocyte Esterase Urine WBC (Auto) Urine RBC (Auto) Impressions: Head CT 05/05/17 00:00 IMPRESSION: Limited negative study EVIDENCE OF ACUTE STROKE: NO. Lumbar Spine X-Ray 05/05/17 00:00 IMPRESSION: No acute fracture or malalignment. Multilevel disc space loss of height with anterior osteophyte formation Hip X-Ray 05/05/17 03:18 IMPRESSION: No acute findings. 2010 [employer]- All Rights Reserved Wrist X-Ray 05/05/17 03:18 IMPRESSION: No acute findings. Limited scaphoid views. 2010 [employer]- All Rights Reserved Chest X-Ray 05/05/17 03:23 IMPRESSION: No acute cardiopulmonary findings. 2010 [employer]- All Rights Reserved Assessment & Plan - Diagnosis (1) Bacteremia Is this a current diagnosis for this admission?: Yes Plan: Blood cultures are positive for gram-positive cocci. PT freely admits to recent and ongoing IV drug use. This is concerning for endocarditis. Echocardiogram was completed; no evidence of vegetation. Will begin daily blood cultures in anticipation of need for PICC. Pt will likely require a DOMINGO in the near future to further asses for endocarditis. He has been empirically placed on Vancomycin and Rocephin. (2) Acute metabolic encephalopathy Is this a current diagnosis for this admission?: Yes Plan: Likely secondary to sepsis and hyponatremia vs ongoing drug use. Aspirations, seizure, and fall precautions in place. Head CT negative for acute processes; no evidence of stroke. LFTs normal. Will provide supportive care. (3) Hyponatremia Is this a current diagnosis for this admission?: Yes Plan: Trending upward. Fall, seizure, aspiration precautions are in place Pt is currently receiving IVF. BMP scheduled q6 hours. (4) Leukocytosis Qualifiers: Leukocytosis type: leukemoid reaction Qualified Code(s): D72.823 - Leukemoid reaction Is this a current diagnosis for this admission?: Yes Plan: Leukocytosis 20.6 --> 15.8; likely secondary to bacteremia and probable endocarditis as the patient has admitted to ongoing IV drug use. Orthopedics were consulted for consideration of septic arthritis and have since determined this to be unlikely and have signed off. Blood cultures are positive for gram-positive cocci Urine cultures are pending. Echocardiogram was completed; no evidence of vegetation. Pt will likely require a DOMINGO in the near future to further asses for endocarditis. He has been empirically placed on Vancomycin and Rocephin. (5) Myalgia Is this a current diagnosis for this admission?: Yes Plan: Patient with complaint of polyarticular arthritic pains; likely chronic in nature. Imaging of the lumbar spine, lateral hips and right wrist were obtained: No acute findings. Urine for gonorrhea is pending to evaluate for gonococcal arthritis. Septic arthritis has been ruled out by orthopedics. (6) Amphetamine abuse Is this a current diagnosis for this admission?: Yes - Time Time Spent with patient: 15-24 minutes Medications reviewed and adjusted accordingly: Yes
[2017-05-06 14:57] LABS: ANION GAP 10 (5-19); BLOOD UREA NITROGEN 18 mg/dL (7-20); CARBON DIOXIDE 21 mmol/L (22-30); CHLORIDE 92 mmol/L (98-107); GLUCOSE 180 mg/dL (75-110); POTASSIUM 3.7 mmol/L (3.6-5.0); SODIUM 122.7 mmol/L (137-145)
[2017-05-06 15:01] LABS: VANCOMYCIN,TROUGH 6.3 ug/mL (5.0-20.0)
[2017-05-06] MEDS: VANCOMYCIN HCL 1,250 MG in DEXTROSE 5%-WATER 250 ML IV SCH (17:52)
[2017-05-06 21:01] LABS: ANION GAP 7 (5-19); BLOOD UREA NITROGEN 17 mg/dL (7-20); CALCIUM 7.3 mg/dL (8.4-10.2); CARBON DIOXIDE 21 mmol/L (22-30); CHLORIDE 94 mmol/L (98-107); GLUCOSE 274 mg/dL (75-110); POTASSIUM 3.5 mmol/L (3.6-5.0); SODIUM 121.8 mmol/L (137-145)
[2017-05-07] MEDS: VANCOMYCIN HCL 1,250 MG in DEXTROSE 5%-WATER 250 ML IV SCH ×4 (00:40→17:15)
[2017-05-07 05:12] LABS: HEMATOCRIT 29.8 % (37.9-51.0); HEMOGLOBIN 10.2 g/dL (13.5-17.0); MEAN CORPUSCULAR HEMOGLOBIN 30.8 pg (27.0-33.4); MEAN CORPUSCULAR HGB CONC 34.4 g/dL (32.0-36.0); MEAN CORPUSCULAR VOLUME 89 fl (80-97); PLATELET COUNT 188 10^3/uL (150-450); RED BLOOD COUNT 3.33 10^6/uL (4.35-5.55); RED CELL DISTRIBUTION WIDTH 14.5 % (11.5-14.0); WHITE BLOOD COUNT 16.4 10^3/uL (4.0-10.5)
[2017-05-07] MEDS: HEPARIN SOD (PORCINE) 5,000 UNIT/ML 1 ML SYRINGE SUBCUT SCH ×3 (05:35→21:47)
[2017-05-07 05:40] LABS: ANION GAP 8 (5-19); BLOOD UREA NITROGEN 16 mg/dL (7-20); CALCIUM 7.1 mg/dL (8.4-10.2); CARBON DIOXIDE 21 mmol/L (22-30); CHLORIDE 97 mmol/L (98-107); GLUCOSE 154 mg/dL (75-110); POTASSIUM 3.6 mmol/L (3.6-5.0); SODIUM 125.9 mmol/L (137-145)
[2017-05-07 06:15] LABS: ABSOLUTE MONOCYTES # (MANUAL) 0.3 10^3/uL (0.1-1.4); ABSOLUTE NEUTROPHILS# (MANUAL) 15.1 10^3/uL (1.7-8.2); BAND NEUTROPHILS % (MANUAL) 4 % (3-5); BASOPHILS % (MANUAL) 0 % (0-2); EOSINOPHILS % (MANUAL) 0 % (0-6); LYMPHOCYTES % (MANUAL) 6 % (13-45); MONOCYTES % (MANUAL) 2 % (3-13); SEGMENTED NEUTROPHILS % (MAN) 88 % (42-78); TOTAL CELLS COUNTED 100
[2017-05-07 06:17] LABS: POLYCHROMASIA SLIGHT; TOXIC GRANULATION 1+; TOXIC VACUOLATION PRESENT
[2017-05-07 06:18] LABS: ANISOCYTOSIS SLIGHT; PLATELET COMMENT ADEQUATE
[2017-05-07] MEDS: IPRATROPIUM/ALBUTEROL 0.5-2.5 MG/3 ML AMPUL NEB SCH ×2 (08:14→16:07)
[2017-05-07] MEDS: CEFTRIAXONE 1 GM/D5W RTU 1 GM/50 ML RTUPB IV SCH (08:15)
[2017-05-07] MEDS: NORMAL SALINE 1000 ML 1,000 ML IV PRN ×3 (08:21→22:00)
--- NOTE | 2017-05-07 10:07 | PDOC PROGRESS REPORT ---
Subjective Progress Note for:: 05/07/17 Subjective:: Complains of generalized pain. Reason For Visit: SEPSIS ENDOCARDITIS, POLYARTHRITIS, IV DRUG ABUSE Physical Exam Vital Signs: Temp Pulse Resp BP Pulse Ox 98.7 F 112 H 20 145/75 H 96 05/07/17 08:07 05/07/17 08:14 05/07/17 08:14 05/07/17 08:07 05/07/17 08:14 Pulse Oximeter Continuous Start: 05/05/17 11: 26 Freq: RTQ4 Status: Active Document 05/07/17 08:14 TPO (Rec: 05/07/17 08:21 TPO [email or web address]) Pulse Oximetry Assessment Oxygen Saturation (92-100) 96 Oxygen Flow Rate (L/min) 2 Oxygen Delivery Method Nasal Cannula Fraction of Inspired Oxygen (FIO2) 28 Equipment Usage Equipment in Use Continuous SpO2 Machine # 11 Intake & Output 05/06/17 05/07/17 05/08/17 06:59 06:59 06:59 Intake Total 4736 5072 Output Total 9019 2250 Balance 2236 2822 Weight 77.3 kg 78 kg General appearance: PRESENT: no acute distress Eye exam: PRESENT: conjunctiva pink. ABSENT: scleral icterus Mouth exam: PRESENT: moist, tongue midline Neck exam: ABSENT: JVD Respiratory exam: PRESENT: clear to auscultation antonio. ABSENT: rales, rhonchi, wheezes Cardiovascular exam: PRESENT: RRR. ABSENT: diastolic murmur, rubs, systolic murmur GI/Abdominal exam: PRESENT: normal bowel sounds, soft. ABSENT: distended, guarding, mass, organolmegaly, rebound, tenderness Extremities exam: ABSENT: calf tenderness, clubbing, pedal edema Neurological exam: PRESENT: alert, awake, oriented to person, oriented to place , oriented to time, oriented to situation, CN II-XII grossly intact. ABSENT: motor sensory deficit Psychiatric exam: PRESENT: appropriate affect Skin exam: PRESENT: dry, intact, warm. ABSENT: cyanosis, rash Results Laboratory Results: 05/07/17 04:36 05/07/17 04:36 05/06/17 05/06/17 05/06/17 13:57 13:57 20:10 WBC RBC Hgb Hct MCV MCH MCHC RDW Plt Count Seg Neutrophils % Lymphocytes % Monocytes % Eosinophils % Basophils % Absolute Neutrophils Absolute Lymphocytes Absolute Monocytes Absolute Eosinophils Absolute Basophils Sodium 122.7 L 121.8 L Potassium 3.7 3.5 L Chloride 92 L 94 L Carbon Dioxide 21 L 21 L Anion Gap 10 7 BUN 18 17 Creatinine Cancelled 0.51 L 0.50 L Est GFR ( Amer) Cancelled > 60 > 60 Est GFR (Non-Af Amer) Cancelled > 60 > 60 Glucose 180 H 274 H Calcium 7.0 L* 7.3 L 05/07/17 05/07/17 04:36 04:36 WBC 16.4 H RBC 3.33 L Hgb 10.2 L Hct 29.8 L MCV 89 MCH 30.8 MCHC 34.4 RDW 14.5 H Plt Count 188 Seg Neutrophils % Not Reportable Lymphocytes % Not Reportable Monocytes % Not Reportable Eosinophils % Not Reportable Basophils % Not Reportable Absolute Neutrophils Not Reportable Absolute Lymphocytes Not Reportable Absolute Monocytes Not Reportable Absolute Eosinophils Not Reportable Absolute Basophils Not Reportable Sodium 125.9 L Potassium 3.6 Chloride 97 L Carbon Dioxide 21 L Anion Gap 8 BUN 16 Creatinine 0.51 L Est GFR ( Amer) > 60 Est GFR (Non-Af Amer) > 60 Glucose 154 H Calcium 7.1 L Impressions: Head CT 05/05/17 00:00 IMPRESSION: Limited negative study EVIDENCE OF ACUTE STROKE: NO. Lumbar Spine X-Ray 05/05/17 00:00 IMPRESSION: No acute fracture or malalignment. Multilevel disc space loss of height with anterior osteophyte formation Hip X-Ray 05/05/17 03:18 IMPRESSION: No acute findings. 2010 [employer]- All Rights Reserved Wrist X-Ray 05/05/17 03:18 IMPRESSION: No acute findings. Limited scaphoid views. 2010 [employer] All Rights Reserved Chest X-Ray 05/05/17 03:23 IMPRESSION: No acute cardiopulmonary findings. 2010 [employer]- All Rights Reserved Assessment & Plan - Diagnosis (1) Acute metabolic encephalopathy Is this a current diagnosis for this admission?: Yes Plan: Resolved. Most likely secondary to substance abuse. (2) Bacteremia Is this a current diagnosis for this admission?: Yes Plan: The patient is growing gram-positive cocci. He most likely has endocarditis given history of drug abuse. Will check blood cultures daily until they are negative. Once the holidays are done we will need referral for a transesophageal echo to evaluate for vegetations given the fact that his transthoracic was negative for vegetations. Continue with vancomycin and Rocephin. (3) Dehydration Is this a current diagnosis for this admission?: Yes Plan: Improving with IV fluids. (4) Hyponatremia Is this a current diagnosis for this admission?: Yes Plan: Improving - Time Time Spent with patient: 25-34 minutes - Inpatient Certification Medical Necessity: Need for IV Antibiotics
[2017-05-07] MEDS: KETOROLAC TROMETHAMINE INJ/PF 30 MG/1 ML SDV IV PRN ×2 (10:20→20:12)
[2017-05-07] MEDS: DOCUSATE SODIUM 100 MG CAPSULE PO SCH ×2 (10:20→17:15)
[2017-05-07 12:43] LABS: VANCOMYCIN,TROUGH 14.4 ug/mL (5.0-20.0)
[2017-05-07] MEDS: INSULIN LISPRO 100 UNIT/ML 3 ML VIAL SUBCUT PRN ×3 (13:39→21:58)
[2017-05-07] MEDS ORDERED: MORPHINE SULFATE 10 MG/ML INJ IV ONE (22:00)
[2017-05-08] MEDS: IPRATROPIUM/ALBUTEROL 0.5-2.5 MG/3 ML AMPUL NEB SCH ×4 (00:03→23:44)
[2017-05-08] MEDS: VANCOMYCIN HCL 1,250 MG in DEXTROSE 5%-WATER 250 ML IV SCH ×3 (00:14→11:58)
[2017-05-08 05:16] LABS: ABSOLUTE BASOPHILS # (AUTO) 0.1 10^3/uL (0.0-0.2); ABSOLUTE LYMPHOCYTES (AUTO) 1.2 10^3/uL (0.5-4.7); ABSOLUTE MONOCYTES (AUTO) 0.4 10^3/uL (0.1-1.4); ABSOLUTE NEUT (AUTO) 12.6 10^3/uL (1.7-8.2); BASOPHILS % (AUTO) 0.6 % (0-2); EOSINOPHILS % (AUTO) 0.2 % (0-6); HEMATOCRIT 30.3 % (37.9-51.0); HEMOGLOBIN 10.4 g/dL (13.5-17.0); LYMPHOCYTES % (AUTO) 8.2 % (13-45); MEAN CORPUSCULAR HEMOGLOBIN 30.7 pg (27.0-33.4); MEAN CORPUSCULAR HGB CONC 34.4 g/dL (32.0-36.0); MEAN CORPUSCULAR VOLUME 89 fl (80-97); MONOCYTES % (AUTO) 2.6 % (3-13); PLATELET COUNT 217 10^3/uL (150-450); RED BLOOD COUNT 3.41 10^6/uL (4.35-5.55); RED CELL DISTRIBUTION WIDTH 14.7 % (11.5-14.0); SEGMENTED NEUTROPHILS % (AUTO) 88.4 % (42-78); TOTAL CELLS COUNTED % (AUTO) 100 %; WHITE BLOOD COUNT 14.2 10^3/uL (4.0-10.5)
[2017-05-08 05:39] LABS: ANION GAP 8 (5-19); BLOOD UREA NITROGEN 14 mg/dL (7-20); CALCIUM 7.1 mg/dL (8.4-10.2); CARBON DIOXIDE 22 mmol/L (22-30); CHLORIDE 98 mmol/L (98-107); GLUCOSE 149 mg/dL (75-110); POTASSIUM 3.7 mmol/L (3.6-5.0); SODIUM 127.5 mmol/L (137-145)
[2017-05-08] MEDS: HEPARIN SOD (PORCINE) 5,000 UNIT/ML 1 ML SYRINGE SUBCUT SCH ×3 (05:41→23:01)
[2017-05-08] MEDS: NORMAL SALINE 1000 ML 1,000 ML IV PRN ×2 (07:03→18:31)
[2017-05-08] MEDS: CEFTRIAXONE 1 GM/D5W RTU 1 GM/50 ML RTUPB IV SCH (08:12)
[2017-05-08] MEDS: DOCUSATE SODIUM 100 MG CAPSULE PO SCH ×2 (09:20→17:23)
[2017-05-08] MEDS: KETOROLAC TROMETHAMINE INJ/PF 30 MG/1 ML SDV IV PRN ×3 (09:20→23:09)
--- NOTE | 2017-05-08 12:40 | PDOC PROGRESS REPORT ---
Subjective Progress Note for:: 05/08/17 Subjective:: Complains of generalized pain. Reason For Visit: SEPSIS ENDOCARDITIS, POLYARTHRITIS, IV DRUG ABUSE Physical Exam Vital Signs: Temp Pulse Resp BP Pulse Ox 99.6 F 90 16 150/74 H 98 05/08/17 07:28 05/08/17 08:34 05/08/17 08:34 05/08/17 07:28 05/08/17 12:00 Pulse Oximeter Continuous Start: 05/05/17 11: 26 Freq: RTQ4 Status: Active Document 05/08/17 12:00 LDA (Rec: 05/08/17 12:04 LDA [email or web address]) Pulse Oximetry Assessment Oxygen Saturation (92-100) 98 Oxygen Flow Rate (L/min) 1 Oxygen Delivery Method Nasal Cannula Equipment Usage Equipment in Use Continuous SpO2 Machine # [id number] Intake & Output 05/07/17 05/08/17 05/09/17 06:59 06:59 06:59 Intake Total 5072 5587 Output Total 2250 2850 Balance 2822 2737 Weight 78 kg 85.6 kg General appearance: PRESENT: no acute distress Eye exam: PRESENT: conjunctiva pink. ABSENT: scleral icterus Mouth exam: PRESENT: moist, tongue midline Neck exam: ABSENT: JVD Respiratory exam: PRESENT: clear to auscultation antonio. ABSENT: rales, rhonchi, wheezes Cardiovascular exam: PRESENT: RRR. ABSENT: diastolic murmur, rubs, systolic murmur GI/Abdominal exam: PRESENT: normal bowel sounds, soft. ABSENT: distended, guarding, mass, organolmegaly, rebound, tenderness Extremities exam: ABSENT: calf tenderness, clubbing, pedal edema Neurological exam: PRESENT: alert, awake, oriented to person, oriented to place , oriented to time, oriented to situation, CN II-XII grossly intact. ABSENT: motor sensory deficit Psychiatric exam: PRESENT: appropriate affect Skin exam: PRESENT: dry, intact, warm. ABSENT: cyanosis, rash Results Laboratory Results: 05/08/17 04:55 05/08/17 04:55 05/07/17 05/08/17 05/08/17 11:38 04:55 04:55 WBC 14.2 H RBC 3.41 L Hgb 10.4 L Hct 30.3 L MCV 89 MCH 30.7 MCHC 34.4 RDW 14.7 H Plt Count 217 Seg Neutrophils % 88.4 H Lymphocytes % 8.2 L Monocytes % 2.6 L Eosinophils % 0.2 Basophils % 0.6 Absolute Neutrophils 12.6 H Absolute Lymphocytes 1.2 Absolute Monocytes 0.4 Absolute Eosinophils 0.0 Absolute Basophils 0.1 Sodium 127.5 L Potassium 3.7 Chloride 98 Carbon Dioxide 22 Anion Gap 8 BUN 14 Creatinine 0.54 0.42 L Est GFR ( Amer) > 60 > 60 Est GFR (Non-Af Amer) > 60 > 60 Glucose 149 H Calcium 7.1 L 05/05/17 16:40 Blood Blood Culture - Final Staphylococcus Aureus 05/05/17 17:35 Blood Blood Culture - Final Staphylococcus Aureus 05/05/17 12:10 Catheterized Urine Urine Culture - Final Staphylococcus Aureus Impressions: Head CT 05/05/17 00:00 IMPRESSION: Limited negative study EVIDENCE OF ACUTE STROKE: NO. Lumbar Spine X-Ray 05/05/17 00:00 IMPRESSION: No acute fracture or malalignment. Multilevel disc space loss of height with anterior osteophyte formation Hip X-Ray 05/05/17 03:18 IMPRESSION: No acute findings. 2010 [employer]- All Rights Reserved Wrist X-Ray 05/05/17 03:18 IMPRESSION: No acute findings. Limited scaphoid views. 2010 [employer]- All Rights Reserved Chest X-Ray 05/05/17 03:23 IMPRESSION: No acute cardiopulmonary findings. 2010 [employer]- All Rights Reserved Assessment & Plan - Diagnosis (1) Acute metabolic encephalopathy Is this a current diagnosis for this admission?: Yes Plan: Resolved. Most likely secondary to substance abuse. (2) Bacteremia Is this a current diagnosis for this admission?: Yes Plan: The patient is growing methicillin sensitive staph aureus. He most likely has endocarditis given history of drug abuse. Will check blood cultures daily until they are negative. Once the holidays are done e will need referral for a transesophageal echo to evaluate for vegetations given the fact that his transthoracic was negative for vegetations. Continue with Rocephin and stop the vancomycin.. (3) Dehydration Is this a current diagnosis for this admission?: Yes Plan: Improving with IV fluids. (4) Hyponatremia Is this a current diagnosis for this admission?: Yes Plan: Improving - Time Time Spent with patient: 25-34 minutes - Plan Summary Plan Summary: Will need to be set up to get a transesophageal echo to evaluate for endocarditis given the fact that the transthoracic echocardiogram was negative for vegetations.
[2017-05-08] MEDS: INSULIN LISPRO 100 UNIT/ML 3 ML VIAL SUBCUT PRN ×2 (13:17→23:01)
[2017-05-09 04:51] LABS: HEMOGLOBIN 10.5 g/dL (13.5-17.0); MEAN CORPUSCULAR HEMOGLOBIN 30.1 pg (27.0-33.4); MEAN CORPUSCULAR VOLUME 89 fl (80-97); PLATELET COUNT 244 10^3/uL (150-450); RED CELL DISTRIBUTION WIDTH 14.9 % (11.5-14.0); WHITE BLOOD COUNT 15.1 10^3/uL (4.0-10.5)
[2017-05-09 05:16] LABS: ANION GAP 8 (5-19); BLOOD UREA NITROGEN 14 mg/dL (7-20); CALCIUM 7.3 mg/dL (8.4-10.2); CARBON DIOXIDE 23 mmol/L (22-30); CHLORIDE 100 mmol/L (98-107); GLUCOSE 128 mg/dL (75-110); POTASSIUM 3.6 mmol/L (3.6-5.0); SODIUM 130.9 mmol/L (137-145)
[2017-05-09 05:26] LABS: ABSOLUTE LYMPHOCYTES# (MANUAL) 0.9 10^3/uL (0.5-4.7); ABSOLUTE NEUTROPHILS# (MANUAL) 14.2 10^3/uL (1.7-8.2); BAND NEUTROPHILS % (MANUAL) 5 % (3-5); BASOPHILS % (MANUAL) 0 % (0-2); EOSINOPHILS % (MANUAL) 0 % (0-6); LYMPHOCYTES % (MANUAL) 6 % (13-45); MONOCYTES % (MANUAL) 0 % (3-13); SEGMENTED NEUTROPHILS % (MAN) 89 % (42-78); TOTAL CELLS COUNTED 100
[2017-05-09 05:28] LABS: ANISOCYTOSIS SLIGHT; HYPOCHROMASIA SLIGHT; PLATELET COMMENT ADEQUATE; POLYCHROMASIA SLIGHT; TOXIC GRANULATION 2+; TOXIC VACUOLATION PRESENT
[2017-05-09] MEDS: HEPARIN SOD (PORCINE) 5,000 UNIT/ML 1 ML SYRINGE SUBCUT SCH ×3 (06:28→22:01)
[2017-05-09] MEDS: NORMAL SALINE 1000 ML 1,000 ML IV PRN ×2 (06:30→13:21)
[2017-05-09] MEDS: CEFTRIAXONE 1 GM/D5W RTU 1 GM/50 ML RTUPB IV SCH (08:55)
[2017-05-09] MEDS: INSULIN LISPRO 100 UNIT/ML 3 ML VIAL SUBCUT PRN ×4 (08:55→22:33)
[2017-05-09] MEDS: IPRATROPIUM/ALBUTEROL 0.5-2.5 MG/3 ML AMPUL NEB SCH ×2 (08:59→16:16)
[2017-05-09] MEDS: KETOROLAC TROMETHAMINE INJ/PF 30 MG/1 ML SDV IV PRN ×2 (09:55→17:46)
[2017-05-09] MEDS: DOCUSATE SODIUM 100 MG CAPSULE PO SCH ×2 (09:56→17:10)
--- NOTE | 2017-05-09 16:38 | PROGRESS NOTE E ---
Progress Note NAME: SUSHIL JARA : 1970 AGE: 46Y DATE: 05/09/2017 ROOM: 320 SUBJECTIVE: The patient is lying in bed. He states he feels better today. Still feels weak. He denies any nausea, vomiting or diarrhea. No shortness of breath, dizziness, chest pain. No fevers or chills. Patient has been afebrile. His blood pressure has been in a good range, and the patient has not voiced any other concerns. At this time, the patient is agreeable for transfer for DOMINGO. REVIEW OF SYSTEMS: Rest of review of systems is negative. MEDICATION: Medications reviewed. OBJECTIVE: GENERAL: The patient, a 46-year-old male, is awake, alert and oriented to person, place, time and situation. He is verbal, conversational and does not appear to in any acute distress. VITAL SIGNS: Temperature is 97.6, pulse 87, respirations 18, blood pressure is 149/72, oxygen saturation is 100% on 1 liter nasal cannula. SKIN: Warm and dry. No rash. Not diaphoretic. HEENT: Pupils equal, round, reactive to light and accommodation. Conjunctivae pink. NECK: No JVP. CARDIOVASCULAR: Heart is regular. No murmurs or rubs. CHEST: Clear, symmetrical, unlabored. ABDOMEN: Soft, nontender, nondistended. BACK: No CVA tenderness or sacral edema. EXTREMITIES: No clubbing, cyanosis or edema. PSYCHIATRIC: Appropriate affect. Pleasant mood. DIAGNOSTICS: Lab values are as follows: Hematology obtained on 05/09/2017: WBCs of 15.1, hemoglobin is 10.5, hematocrit is 31.0, platelet count is 244,000. Chemistry obtained on 05/08/2017: Sodium is 130, potassium 2.6, chloride is 100, carbon dioxide 23, BUN 14, creatinine 0.48, glucose 128, calcium is 7.3. Microbiology: Blood cultures obtained on 05/05/2017 reveal Staphylococcus aureus. IMPRESSION AND PLAN: 1. METHICILLIN-SENSITIVE STAPHYLOCOCCUS AUREUS BACTEREMIA. Will continue with Rocephin. Will consult Infectious Disease for input on this and follow. 2. MOST LIKELY ENDOCARDITIS. Will transfer for transesophageal echocardiogram. The patient has been accepted by Dr. Villareal for outpatient transesophageal echocardiogram. 3. ACUTE METABOLIC ENCEPHALOPATHY, SECONDARY TO THE ABOVE. The patient overall is improved. 4. DEHYDRATION. Will continue intravenous fluids. 5. HYPERNATREMIA. This is improved with hydration. DISPOSITION: The patient is a FULL CODE. Pending patient's symptomatology and diagnostic findings, will reevaluate in the a.m. Time spent on this followup, including assessment, plan, physical examination, patient education and resource alignment is 35 minutes. DICTATING PHYSICIAN: VERO SANDOVAL NP [id number] PHY#: [id number] ID: [id number] JOB#: [id number] ACCT: [id number] cc: >
[2017-05-09] MEDS ORDERED: NORMAL SALINE 1000 ML 1,000 ML IV PRN (18:20)
--- NOTE | 2017-05-09 19:48 | TRANSFER SUMMARY E ---
Transfer Summary NAME: SUSHIL JARA : 1970 AGE: 46Y ADMITTED: 05/05/2017 TRANSFERRED: 05/09/2017 RECEIVING SURGEON ASSISTANT: Lico Whitehead M.D. PRIMARY CARE PROVIDER: Not established. Infectious disease consultation is pending with [facility]. CURRENT DIAGNOSES: Includes: 1. MSSA bacteremia. 2. High suspicion of endocarditis secondary to number 1. 3. Acute metabolic encephalopathy secondary to the above, which is improved. 4. Dehydration. 5. Hyponatremia which is improved. 6. IV drug use including heroin and methamphetamine. 7. Diabetes mellitus type 2 with an A1c of 7.3. CURRENT MEDICATIONS: Include: 1. Ceftriaxone 1 g IV q. a.m. 2. Heparin 5000 units subcu q. 8 hours. 3. Apresoline 10 mg IV q. 6 hours p.r.n. 4. Tylenol 650 mg p.o. daily p.r.n. 5. Normal saline at 50 mL/hr. 6. Toradol 30 mg IV q. 6 hours p.r.n. 7. Colace 100 mg p.o. b.i.d. 8. Milk of Magnesia 30 mL p.o. q. hour of sleep p.r.n. DIET: Heart healthy. ACTIVITY: As tolerated. DIAGNOSTICS: Lab values are as follows: Hematology obtained on 05/09/2017: WBCs are 15.1; hemoglobin is 10.5; hematocrit is 31.0; platelet count is 244,000. ABG obtained on 05/05/2017: A pH of 7.45, pCO2 of 33.1, op2 is 168, bicarb is 22.3. Chemistry obtained on 05/09/2017: Sodium is 130, potassium is 3.6, chloride is 100, carbon dioxide 23, BUN 14, creatinine is 0.48, glucose 128. A1c is 7.3. Lactic acid is 1.1, uric acid is 2.6, calcium is 7.3, bilirubin is 1.5, AST 32, ALT is 38, alk phos 122. C-reactive protein is 215, total protein 602, albumin 2.2. Urinalysis obtained on 05/05/2017: Color raheel, appearance slightly cloudy. PH is 5.0, specific gravity is 1.022. Protein 30, glucose greater than 500, ketones negative. Occult blood moderate, nitrate negative, bilirubin negative, urobilinogen is 4, leukocyte esterase is negative. WBCs are 5, RBCs 4, casts 1. Toxicology obtained on 05/05/2017: Opiates are positive. Amphetamines are high probability of positive. Urine culture obtained on 05/05/2017 reveals a MSSA. Urine chlamydia and gonorrhea negative. Blood culture sent on 05/05/2017 reveals MSSA. Blood culture sent on 05/06/2017: Both sets reveal MSSA. Blood culture sent on 05/07/2017 reveal gram positive cocci. Blood culture sent on 05/08/2017 reveal gram positive cocci. Head CT obtained on 05/05/2017 reveals a limited negative study. Lumbar spine x-ray obtained on 05/05/2017 reveals no acute fracture or malalignment, multilevel disk space loss of height and anterior osteophyte formation. Hip x-ray obtained on 05/05/2017 reveals no acute findings. Wrist x-ray obtained on 05/05/2017 reveals no acute findings. Chest x-ray obtained on 05/05/2017 reveals no acute cardiopulmonary findings. Echocardiogram obtained on 05/05/2017 reveals left ventricular ejection fraction is 60% with no obvious vegetations. PHYSICAL EXAMINATION: GENERAL: On examination, the patient is a well-developed, reasonably-nourished 46-year-old male who is awake, alert, and oriented to person, place, time, and situation. He is verbal, conversational, does not appear to be in any acute distress. VITAL SIGNS: Temperature is 97.6, pulse 87, respirations 18, blood pressure 149/72, oxygen saturation is 100% on 1 L nasal cannula. SKIN: Warm and dry. No rashes. Not diaphoretic. HEENT: Pupils equal, round, and reactive to light and accommodation. Conjunctiva is pink. There is no JVP. CARDIOVASCULAR SYSTEM: Heart is regular. There is no murmur or rub. CHEST: Clear, symmetrical, unlabored. ABDOMEN: Soft, nontender, nondistended. BACK: No CVA tenderness or sacral edema. EXTREMITIES: No clubbing, cyanosis, edema. PSYCHIATRIC: Appropriate affect. HISTORY OF PRESENT ILLNESS: The patient is a 46-year-old male with a past medical history of IV drug use. The patient presented to the emergency department with a chief complaint of generalized joint pains and lower back pain. The patient had described feelings of weakness and myalgia all over his body. According to the patient, he sustained a fall approximately 2 days prior to presentation, denied any specific injury but had been lethargic since that time. The patient, of course, is quite a poor historian. The patient had admitted to having previous abscesses and the patient was actually seen initially by Orthopedics due to right wrist swelling which was felt to most likely be a cellulitis from injection. The patient was found to have evidence of sepsis with a white blood cell count of 20,000 as well as a low grade temperature of 100.5 and the patient was referred to the hospitalist for admission and management. HOSPITAL COURSE: The patient was admitted to [facility]. The patient had repeated blood cultures daily which have revealed MSSA to this point. The patient's antibiotic coverage was decelerated to Rocephin. The patient's white count has improved but remains stable around 15 with no evidence of bandemia. The patient has no evidence of sepsis. The patient was noted to be profoundly hyponatremic, however with gentle hydration, this has improved to 130. Additionally, the patient has continued on fluids and given the patient's poly positive cultures, is recommended for DOMINGO given no evidence of vegetation was noted on transthoracic echocardiogram. The patient is in agreement with this plan. I would like to thank [facility] for graciously participating in the care of this patient. Arrangements will be made for the patient to have the procedure and then return back to [facility]. TIME SPENT: Time spent on this transfer including assessment, plan, physical examination, patient education, review of records, and resource alignment, 35 minutes. DICTATING PHYSICIAN: VERO SANDOVAL NP [id number] PHY#: [id number] ID: [id number] JOB#: [id number] ACCT: [id number] cc:VERO SANDOVAL NP > [facility]
[2017-05-09] MEDS: CEFAZOLIN 2 GM/D5W RTU 2 GM/50 ML RTUPB IV SCH (22:10)
[2017-05-10] MEDS: KETOROLAC TROMETHAMINE INJ/PF 30 MG/1 ML SDV IV PRN ×2 (02:34→20:02)
[2017-05-10] MEDS: CEFAZOLIN 2 GM/D5W RTU 2 GM/50 ML RTUPB IV SCH ×3 (05:52→21:49)
[2017-05-10] MEDS: HEPARIN SOD (PORCINE) 5,000 UNIT/ML 1 ML SYRINGE SUBCUT SCH ×3 (05:53→21:50)
[2017-05-10] MEDS: CEFTRIAXONE 1 GM/D5W RTU 1 GM/50 ML RTUPB IV SCH (07:11)
[2017-05-10] MEDS: DOCUSATE SODIUM 100 MG CAPSULE PO SCH ×2 (07:14→17:05)
--- NOTE | 2017-05-10 08:08 | PROGRESS NOTE E ---
Progress Note NAME: SUSHIL JARA : 1970 AGE: 46Y DATE: 05/10/2017 ROOM: 320 SUBJECTIVE: The patient is lying in bed. The patient was seen on early-morning rounds. The patient denies any nausea, vomiting, diarrhea. No shortness of breath, dizziness, chest pain. No fevers, chills. The patient has been afebrile overnight. His blood pressures have been in good range. The patient has actually been afebrile since 05/07/2017. The patient is prepared to go for outpatient DOMINGO. The case has been discussed with Infectious Disease, and the patient is currently receiving Ancef 2 g IV q.8 hours. The patient has tolerated this well throughout the night, and the patient does not voice any specific concerns at this time. REVIEW OF SYSTEMS: Rest of review of systems is negative. MEDICATIONS: Medications have been reviewed. OBJECTIVE: GENERAL: The patient is a 46-year-old male who is awake, alert, and oriented to person, place, time, and situation. He is verbal, conversational, does not appear to be in any acute distress. VITAL SIGNS: Are as follows: Temperature is 98.1, pulse 87, respirations 19, blood pressure 141/81, oxygen saturation 98% on 2 L nasal cannula. SKIN: Warm and dry. No rash. Not diaphoretic. HEENT: Pupils equal, round, reactive to light and accommodation. Conjunctivae pink. There is no JVP. CARDIOVASCULAR SYSTEM: Heart is regular. There is no murmur or rub. CHEST: Clear, symmetrical, unlabored. ABDOMEN: Soft, nontender, nondistended. BACK: No CVA tenderness, sacral edema. EXTREMITIES: No clubbing, cyanosis, edema. PSYCHIATRIC: Appropriate affect. Pleasant mood. DIAGNOSTICS: Lab values are as follows: Hematology obtained on 05/08/2017: WBCs are 5.1, hemoglobin is 10.5, hematocrit 31.0, platelet count is 244,000. Chemistry obtained on 05/09/2017: Sodium is 130, potassium 2.6, chloride is 100, carbon dioxide 23, BUN 14, creatinine is 0.48, glucose 128, calcium is 7.3. IMPRESSION AND PLAN: 1. METHICILLIN-SENSITIVE STAPHYLOCOCCUS AUREUS BACTEREMIA. Will continue Ancef. The patient will require 6 weeks of this. 2. MOST LIKELY ENDOCARDITIS. The patient is to have a DOMINGO today. He has been for outpatient DOMINGO and will return to this facility given that there are no available beds for transfer at this time. The patient will also receive an infectious disease consultation. 3. ACUTE METABOLIC ENCEPHALOPATHY, SECONDARY TO THE ABOVE. Overall improved. 4. OPIATE DEPENDENCY, CONTINUOUS. The patient also admits to IV methamphetamine use as well as heroin use. The patient has been detoxed since admission. Will continue NSAIDs for pain control. 5. DEHYDRATION. This has resolved. Will discontinue IV fluids for transport. 6. HYPONATREMIA. This did improve with hydration, did appear to be an element of hypovolemia. DISPOSITION: The patient is a FULL CODE. Pending patient's symptomatology and diagnostic findings, will reevaluate upon his return. Time spent on this followup including assessment, plan, physical examination, patient education, and resource alignment is 25 minutes. DICTATING PHYSICIAN: VERO SANDOVAL NP [id number] PHY#: [id number] ID: [id number] JOB#: [id number] ACCT: [id number] cc: > [facility]
[2017-05-10] MEDS: INSULIN LISPRO 100 UNIT/ML 3 ML VIAL SUBCUT PRN (21:50)
[2017-05-11] MEDS: KETOROLAC TROMETHAMINE INJ/PF 30 MG/1 ML SDV IV PRN ×2 (04:36→11:22)
[2017-05-11] MEDS: HEPARIN SOD (PORCINE) 5,000 UNIT/ML 1 ML SYRINGE SUBCUT SCH ×3 (05:05→22:13)
[2017-05-11] MEDS: CEFAZOLIN 2 GM/D5W RTU 2 GM/50 ML RTUPB IV SCH ×3 (05:05→22:11)
[2017-05-11] MEDS: DOCUSATE SODIUM 100 MG CAPSULE PO SCH ×2 (09:03→17:32)
--- NOTE | 2017-05-11 13:03 | PROGRESS NOTE E ---
Progress Note NAME: SUSHIL JARA : 1970 AGE: 46Y DATE: 05/11/2017 ROOM: 320 SUBJECTIVE: The patient is currently lying in bed. I had a lengthy conversation with the patient regarding his substance abuse. The patient states that he has not injected in almost 2 months, that he would like to get his kids back in his life. The patient has been on our service since 05/05 and has not had any episodes of opiate withdrawal-type symptoms. Therefore, this does seem to be feasible. The patient was explained and voiced understanding in the repercussions of intravenous drug use with a central line access, and the patient is agreeable to proceed with treatment. The patient has been afebrile. His blood pressures have been in a good range, and the patient does not voice any other concerns at this time. REVIEW OF SYSTEMS: Rest of review of systems negative. MEDICATIONS: Medications have been reviewed. OBJECTIVE: GENERAL: The patient is a 46-year-old male who is awake, alert, and oriented to person, place, time, and situation. He is verbal, conversational, does not appear to be in any acute distress. VITAL SIGNS: Temperature is 100.2, pulse 112, respirations 22, blood pressure is 137/68, oxygen saturation is 93% on room air. SKIN: Warm and dry. No rash. She is not diaphoretic. HEENT: Pupils equal, round, reactive to light and accommodation. Conjunctiva is pink. There is no JVP. CARDIOVASCULAR SYSTEM: Heart is regular. There is no murmur or rub. CHEST: Clear, symmetrical, unlabored. ABDOMEN: Soft, nontender, nondistended. BACK: No CVA tenderness or sacral edema. EXTREMITIES: No clubbing, cyanosis, edema. PSYCHIATRIC: Appropriate affect. Pleasant mood. DIAGNOSTICS: Lab values are as follows: Hematology obtained on 05/09/2017: WBCs are 15.1, hemoglobin is 10.5, hematocrit is 31.0, platelet count is 244,000. Chemistry obtained on 05/09/2017: Sodium is 130, potassium 3.6, chloride is 100, carbon dioxide 23, BUN 14, creatinine is 0.48, glucose 128, calcium is 7.3. IMPRESSION AND PLAN: 1. METHICILLIN-SENSITIVE STAPHYLOCOCCUS AUREUS BACTEREMIA. Continue Ancef 2 g IV q. 8 hours as per Infectious Disease recommendation. The patient will require 6 weeks of this. Do appreciate Infectious Disease's discussion. 2. TRICUSPID VALVE ENDOCARDITIS PER DOMINGO. 3. SEPSIS SECONDARY TO NUMBERS 1 AND 2. This was present on admission, overall improving. 4. ACUTE METABOLIC ENCEPHALOPATHY, RESOLVED. 5. OPIATE DEPENDENCY, CONTINUOUS. The patient also admits to IV methamphetamine use as well as heroin use. The patient has detoxed since admission. Will continue NSAIDs and Tylenol for pain control. 6. DEHYDRATION. This is resolved. 7. HYPONATREMIA. This resolved with hydration. DISPOSITION: The patient is a FULL CODE. Pending patient's symptomatology and diagnostic findings, will re-evaluate in the a.m. The patient can be downgraded to a medical bed. The patient can be discharged as soon as IV antibiotics are arranged. ADDENDUM: Spoke again to ID. Recommendations include current antibiotic regimen, Daptomycin 8mg/kg/day, or Naficillin continuous drip. Have spoken with group social worker regarding which would be feasible for self-pay status. Will tom Daptomycin with pharmacy. Time spent on this followup including assessment, plan, physical examination, patient education, and resource alignment is 45 minutes. DICTATING PHYSICIAN: VERO SANDOVAL NP [id number] PHY#: [id number] ID: [id number] JOB#: [id number] ACCT: [id number] cc: > [facility]
[2017-05-11] MEDS ORDERED: METOPROLOL SUCCINATE 50 MG TAB.SR.24H PO ONE (13:30)
[2017-05-11] MEDS: METFORMIN HCL 500 MG TABLET PO SCH (17:32)
[2017-05-11] MEDS: ACETAMINOPHEN 325 MG TABLET PO PRN (20:32)
[2017-05-11] MEDS ORDERED: VALSARTAN 40 MG TABLET PO SCH (22:00)
[2017-05-12] MEDS: ACETAMINOPHEN 325 MG TABLET PO PRN ×4 (01:48→22:01)
[2017-05-12] MEDS: CEFAZOLIN 2 GM/D5W RTU 2 GM/50 ML RTUPB IV SCH ×3 (05:11→22:00)
[2017-05-12] MEDS: HEPARIN SOD (PORCINE) 5,000 UNIT/ML 1 ML SYRINGE SUBCUT SCH ×3 (05:13→22:01)
[2017-05-12 05:48] LABS: HEMATOCRIT 24.2 % (37.9-51.0); HEMOGLOBIN 8.5 g/dL (13.5-17.0); MEAN CORPUSCULAR VOLUME 89 fl (80-97); PLATELET COUNT 278 10^3/uL (150-450); RED BLOOD COUNT 2.73 10^6/uL (4.35-5.55); RED CELL DISTRIBUTION WIDTH 14.8 % (11.5-14.0)
[2017-05-12 06:03] LABS: ANION GAP 6 (5-19); BLOOD UREA NITROGEN 10 mg/dL (7-20); CALCIUM 7.5 mg/dL (8.4-10.2); CARBON DIOXIDE 28 mmol/L (22-30); CHLORIDE 99 mmol/L (98-107); GLUCOSE 163 mg/dL (75-110); MAGNESIUM 1.7 mg/dL (1.6-2.3); POTASSIUM 3.8 mmol/L (3.6-5.0); SODIUM 132.5 mmol/L (137-145)
--- NOTE | 2017-05-12 08:23 | PDOC H&P ---
History of Present Illness Admission Date/PCP: 05/05/17 05:33 History of Present Illness: SUSHIL JARA is a 46 year old male with history of tobacco, IV heroin and methamphetamine abuse. He presents with 2 days of diffuse joint pain and fever and exceptional pain about the right wrist at the site of IV drug use. In the emergency room he appears toxic has fever, tachycardia and leukocytosis. He started on empiric antibiotics and referred the hospitalist for admission. Patient is a poor historian and appears to be in opiate withdrawal he denies previous episode and denies recent antibiotic use. Past Medical History Medical History: None Pulmonary Medical History: Reports: None EENT Medical History: Reports: None Neurological Medical History: Reports: None Endocrine Medical History: Reports: None Renal/ Medical History: Reports: None Malignancy Medical History: Reports: None GI Medical History: Reports: None Musculoskeltal Medical History: Reports: Arthritis Psychiatric Medical History: Reports: Substance Abuse, Tobacco Dependency Denies: Depression Traumatic Medical History: Reports: None Hematology: Reports: None Infectious Medical History: Reports: None Past Surgical History Past Surgical History: Reports: Orthopedic Surgery - ACL repair, R elbow, L ankle Social History Information Source: Patient Smoking Status: Current Every Day Smoker Cigarettes Packs Per Day: 1 Frequency of Alcohol Use: Rare Hx Recreational Drug Use: Yes Drugs: Heroin, Methadone, Other - IV methamphetamine Hx Prescription Drug Abuse: No - Advance Directive Resuscitation Status: Full Code Family History Family History: Arthritis Parental Family History Reviewed: Yes Children Family History Reviewed: Yes Sibling(s) Family History Reviewed.: Yes Medication/Allergy Home Medications: No Home Medications 05/05/17 Allergies/Adverse Reactions: Penicillins Allergy (Verified 08/18/14 12:03) Review of Systems Constitutional: ABSENT: chills, fever(s), headache(s), weight gain, weight loss Eyes: ABSENT: visual disturbances Ears: ABSENT: hearing changes Cardiovascular: ABSENT: chest pain, dyspnea on exertion, edema, orthropnea, palpitations Respiratory: ABSENT: cough, hemoptysis Gastrointestinal: ABSENT: abdominal pain, constipation, diarrhea, hematemesis, hematochezia, nausea, vomiting Genitourinary: ABSENT: dysuria, hematuria Musculoskeletal: ABSENT: joint swelling Integumentary: ABSENT: rash, wounds Neurological: ABSENT: abnormal gait, abnormal speech, confusion, dizziness, focal weakness, syncope Psychiatric: ABSENT: anxiety, depression, homidical ideation, suicidal ideation Endocrine: ABSENT: cold intolerance, heat intolerance, polydipsia, polyuria Hematologic/Lymphatic: ABSENT: easy bleeding, easy bruising Physical Exam Vital Signs: Temp Pulse Resp BP Pulse Ox 98.1 F 87 16 139/65 H 98 05/12/17 03:34 05/12/17 03:34 05/12/17 03:34 05/12/17 03:34 05/12/17 03:34 Pulse Oximeter Continuous Start: 05/05/17 11: 26 Freq: RTQ4 Status: Complete Document 05/11/17 08:00 JDR (Rec: 05/11/17 11:14 JDR [id number]) Pulse Oximetry Assessment Oxygen Saturation (92-100) 98 Oxygen Flow Rate (L/min) 2 Oxygen Delivery Method Nasal Cannula Equipment Usage Equipment in Use Continuous SpO2 Machine # 8 Intake & Output 05/10/17 05/11/17 05/12/17 11:59 11:59 11:59 Intake Total 3885 950 2050 Output Total 1999 975 4325 Balance 1255 25 -3855 Weight 76.2 kg 78.2 kg General appearance: PRESENT: disheveled, mild distress, thin Head exam: PRESENT: atraumatic, normocephalic Eye exam: PRESENT: conjunctiva pink, EOMI, PERRLA. ABSENT: scleral icterus Ear exam: PRESENT: normal external ear exam Mouth exam: PRESENT: moist, tongue midline Neck exam: ABSENT: carotid bruit, JVD, lymphadenopathy, thyromegaly Respiratory exam: PRESENT: clear to auscultation antonio, crackles, prolonged expiratory phas. ABSENT: rales, rhonchi, wheezes Cardiovascular exam: PRESENT: gallop, RRR, +S1, +S2, systolic murmur, tachycardia Pulses: PRESENT: normal dorsalis pedis pul Vascular exam: PRESENT: normal capillary refill GI/Abdominal exam: PRESENT: normal bowel sounds, soft. ABSENT: distended, guarding, mass, organolmegaly, rebound, tenderness Rectal exam: PRESENT: deferred Extremities exam: PRESENT: full ROM. ABSENT: calf tenderness, clubbing, pedal edema Neurological exam: PRESENT: alert, altered, awake, oriented to person, oriented to place, CN II-XII grossly intact. ABSENT: motor sensory deficit Psychiatric exam: PRESENT: agitated, flat affect Skin exam: PRESENT: dry, intact, warm. ABSENT: cyanosis, rash Results Laboratory Results: 05/12/17 05:20 05/12/17 05:20 05/12/17 05/12/17 05:20 05:20 WBC 16.0 H RBC 2.73 L Hgb 8.5 L Hct 24.2 L MCV 89 MCH 31.0 MCHC 35.0 RDW 14.8 H Plt Count 278 Sodium 132.5 L Potassium 3.8 Chloride 99 Carbon Dioxide 28 Anion Gap 6 BUN 10 Creatinine 0.42 L Est GFR ( Amer) > 60 Est GFR (Non-Af Amer) > 60 Glucose 163 H Calcium 7.5 L Magnesium 1.7 05/08/17 07:52 Blood Blood Culture - Final Staphylococcus Aureus 05/08/17 08:39 Blood Blood Culture - Final Staphylococcus Aureus Impressions: Head CT 05/05/17 00:00 IMPRESSION: Limited negative study EVIDENCE OF ACUTE STROKE: NO. Lumbar Spine X-Ray 05/05/17 00:00 IMPRESSION: No acute fracture or malalignment. Multilevel disc space loss of height with anterior osteophyte formation Hip X-Ray 05/05/17 03:18 IMPRESSION: No acute findings. 2010 [employer]- All Rights Reserved Wrist X-Ray 05/05/17 03:18 IMPRESSION: No acute findings. Limited scaphoid views. 2010 [employer]- All Rights Reserved Chest X-Ray 05/05/17 03:23 IMPRESSION: No acute cardiopulmonary findings. 2010 [employer]- All Rights Reserved Assessment & Plan - Diagnosis (1) Bacteremia Is this a current diagnosis for this admission?: Yes Plan: Strongly suggested by history and presentation vancomycin and Zosyn initiated follow-up CBC and blood culture (2) Endocarditis Is this a current diagnosis for this admission?: Yes Plan: Strongly suggested by history of the present illness and systolic murmur, 2D echo, vancomycin and Zosyn follow-up blood culture, CBC and 2D echo (3) Polysubstance abuse Is this a current diagnosis for this admission?: Yes Plan: Supportive measures consider outpatient rehab referral (4) Acute metabolic encephalopathy Is this a current diagnosis for this admission?: Yes Plan: Supportive measures, opiates to avoid withdrawal. (5) Arthritis, wrist Is this a current diagnosis for this admission?: Yes Plan: Given pain at site of IV injection drug use will obtain orthopedic consult for evaluation. Otherwise symptomatic management. - Time Time Spent: 30 to 50 Minutes - Inpatient Certification Medical Necessity: Need Close Monitoring Due to Risk of Patient Decompensation
[2017-05-12] MEDS: METFORMIN HCL 500 MG TABLET PO SCH ×2 (08:30→16:25)
[2017-05-12] MEDS: METOPROLOL SUCCINATE 50 MG TAB.SR.24H PO SCH (09:59)
[2017-05-12] MEDS: DOCUSATE SODIUM 100 MG CAPSULE PO SCH ×2 (10:00→17:06)
--- NOTE | 2017-05-12 11:59 | RADIOLOGY REPORT (SQ) ---
EXAM DESCRIPTION: PICC INSERTION; FLUORO/CV PLACEMENT; U/S GUIDE FOR VASCULAR ACCESS COMPLETED DATE/TIME: 05/12/2017 11:38 am REASON FOR STUDY: prison abx; SKILLED NURSING IV ABX; IV ACCESS COMPARISON: Two-view chest 05/05/2017 FLUOROSCOPY TIME: 22 seconds 1 ultrasound and 1 digital chest images saved to PACS. TECHNIQUE: Fluoroscopic and ultrasound guided PICC placement. LIMITATIONS: None. PROCEDURE: After written consent and assessment were obtained, the patient was brought into the fluo roscopy room and place supine on the table. Ultrasound was used on the patient's right arm for PICC access. The right arm was prepped and draped in a sterile fashion along with the ultrasound probe. Th e entry site was anesthetized with 1% lidocaine. A 21 gauge 7 cm needle was advanced through the skin and into the basilic vein under live ultrasound guidance. An ultrasound image was saved to PACS con firming access site. A .018 guide wire was then inserted through the needle and into the venous syst em. The needle was the removed and an 11 blade scalpel was used to make a 1cm skin incision. A 5 fr peel-away sheath was advanced over the wire and into the venous system. A measurement was then made u sing the existing wire and live fluoroscopic guidance. The wire was then removed and the trimmed. The PICC was advanced through the peel-away sheath and into the venous system. The peel-away sheath was removed and the catheter was adhered to the patients arm with a stat lock. The catheter was then aspi rated and flushed and a sterile bandage was placed over the access site. A fluoroscopic spot image w as saved to PACS confirming the catheter tip within the superior vena cava. IMPRESSION: SUCCESSFUL PLACEMENT OF A 5 FR DUAL LUMEN 35 CM PICC IN THE RIGHT BASILIC VEIN. COMMENT: Patient medication list reviewed: Yes- Quality ID# [id number]:Eligible professional attests to doc umenting in the medical record they obtained, updated, or reviewed the patient's current medications. . Quality ID 145: Final reports for procedures using fluoroscopy that document radiation exposure rosa patricia, or exposure time and number of fluorographic images (if radiation exposure indices are not avail able) Quality ID #[id number]: The patient was prepped and draped using maximum sterile barrier technique including cap, mask, sterile gown, sterile gloves, a large sterile sheet, hand hygiene, and 2% Chlorhexidine fo r cutaneous antisepsis. When ultrasound is used, sterile ultrasound techniques are followed requiring sterile gel and sterile probes. TECHNICAL DOCUMENTATION: JOB ID: [id number] [employer]- All Rights Reserved
--- NOTE | 2017-05-12 12:10 | PDOC PROGRESS REPORT ---
Subjective Progress Note for:: 05/12/17 Subjective:: Pt is seen on morning rounds for follow up. He is found resting in bed comfortably having just finished breakfast. He reports that his only complaint today is his generalized arthritic pain and requests something stronger than Tylenol. Otherwise, he states that he is feeling well and denies fever, chills headache, pain, dyspnea, cough, abdominal pain, nausea vomiting or diarrhea. He has no other questions or concerns at this time. Reason For Visit: SEPSIS ENDOCARDITIS, POLYARTHRITIS, IV DRUG ABUSE Physical Exam Vital Signs: Temp Pulse Resp BP Pulse Ox 98.6 F 107 H 18 142/91 H 99 05/12/17 08:12 05/12/17 08:12 05/12/17 08:12 05/12/17 08:12 05/12/17 08:12 Pulse Oximeter Continuous Start: 05/05/17 11: 26 Freq: RTQ4 Status: Complete Document 05/11/17 08:00 JDR (Rec: 05/11/17 11:14 JDR [email or web address]) Pulse Oximetry Assessment Oxygen Saturation (92-100) 98 Oxygen Flow Rate (L/min) 2 Oxygen Delivery Method Nasal Cannula Equipment Usage Equipment in Use Continuous SpO2 Machine # 8 Intake & Output 05/11/17 05/12/17 05/13/17 06:59 06:59 06:59 Intake Total 950 2050 Output Total 975 4325 Balance -25 -2275 Weight 78.2 kg General appearance: PRESENT: no acute distress, disheveled, well-developed, well -nourished Head exam: PRESENT: atraumatic, normocephalic Eye exam: PRESENT: conjunctiva pink, EOMI, PERRLA. ABSENT: scleral icterus Ear exam: PRESENT: normal external ear exam Mouth exam: PRESENT: moist, tongue midline Neck exam: ABSENT: carotid bruit, JVD, lymphadenopathy, thyromegaly Respiratory exam: PRESENT: clear to auscultation antonio. ABSENT: rales, rhonchi, wheezes Cardiovascular exam: PRESENT: RRR. ABSENT: diastolic murmur, rubs, systolic murmur Pulses: PRESENT: normal dorsalis pedis pul Vascular exam: PRESENT: normal capillary refill GI/Abdominal exam: PRESENT: normal bowel sounds, soft. ABSENT: distended, guarding, mass, organolmegaly, rebound, tenderness Rectal exam: PRESENT: deferred Extremities exam: PRESENT: full ROM. ABSENT: calf tenderness, clubbing, pedal edema Neurological exam: PRESENT: alert, awake, oriented to person, oriented to place , oriented to time, oriented to situation, CN II-XII grossly intact. ABSENT: motor sensory deficit Psychiatric exam: PRESENT: appropriate affect, normal mood. ABSENT: homicidal ideation, suicidal ideation Skin exam: PRESENT: dry, intact, warm. ABSENT: cyanosis, rash Results Laboratory Results: 05/12/17 05:20 05/12/17 05:20 05/12/17 05/12/17 05:20 05:20 WBC 16.0 H RBC 2.73 L Hgb 8.5 L Hct 24.2 L MCV 89 MCH 31.0 MCHC 35.0 RDW 14.8 H Plt Count 278 Sodium 132.5 L Potassium 3.8 Chloride 99 Carbon Dioxide 28 Anion Gap 6 BUN 10 Creatinine 0.42 L Est GFR ( Amer) > 60 Est GFR (Non-Af Amer) > 60 Glucose 163 H Calcium 7.5 L Magnesium 1.7 05/08/17 07:52 Blood Blood Culture - Final Staphylococcus Aureus 05/08/17 08:39 Blood Blood Culture - Final Staphylococcus Aureus Impressions: Head CT 05/05/17 00:00 IMPRESSION: Limited negative study EVIDENCE OF ACUTE STROKE: NO. Lumbar Spine X-Ray 05/05/17 00:00 IMPRESSION: No acute fracture or malalignment. Multilevel disc space loss of height with anterior osteophyte formation Hip X-Ray 05/05/17 03:18 IMPRESSION: No acute findings. 2010 [employer]- All Rights Reserved Wrist X-Ray 05/05/17 03:18 IMPRESSION: No acute findings. Limited scaphoid views. 2010 [employer]- All Rights Reserved Chest X-Ray 05/05/17 03:23 IMPRESSION: No acute cardiopulmonary findings. 2010 [employer]- All Rights Reserved Assessment & Plan - Diagnosis (1) Bacteremia Is this a current diagnosis for this admission?: Yes Plan: Blood cultures: Methicillin sensitive Staphylococcus aureus. PT freely admits to recent and ongoing IV drug use. DOMINGO identify tricuspid valve endocarditis. The patient will have a PICC line inserted today. Infectious disease provider recommended Ancef, daptomycin, or methicillin. Appreciate discharge planning's assistance and pricing these medications as the patient is a self-pay status. He will require 6 weeks of antibiotic therapy. (2) Endocarditis of tricuspid valve Is this a current diagnosis for this admission?: Yes Plan: Per DOMINGO. Plan as above. (3) Sepsis Qualifiers: Sepsis type: methicillin susceptible Staphylococcus aureus Qualified Code(s ): A41.01 - Sepsis due to Methicillin susceptible Staphylococcus aureus Is this a current diagnosis for this admission?: Yes Plan: Secondary to #1 and 2. This was present on admission. Overall, his condition is improving. Will continue plan as outlined above. (4) Hyponatremia Is this a current diagnosis for this admission?: Yes Plan: Trending upward. Fall, seizure, aspiration precautions are in place Pt is currently receiving IVF. (5) Myalgia Is this a current diagnosis for this admission?: Yes Plan: Improved. Patient with complaint of polyarticular arthritic pains; likely chronic in nature. Imaging of the lumbar spine, lateral hips and right wrist were obtained: No acute findings. Urine for gonorrhea moe evaluate for gonococcal arthritis was negative. Septic arthritis has been ruled out by orthopedics. Pain is managed with Tylenol and lidocaine patches. We will avoid all narcotic substances giving the patient's recent abuse of illicit drugs. (6) Leukocytosis Qualifiers: Leukocytosis type: leukemoid reaction Qualified Code(s): D72.823 - Leukemoid reaction Is this a current diagnosis for this admission?: Yes Plan: Leukocytosis 20.6 --> 15.8; secondary to bacteremia and endocarditis. We will continue antibiotic therapy as above. (7) Acute metabolic encephalopathy Is this a current diagnosis for this admission?: Yes Plan: Resolved (8) Dehydration Is this a current diagnosis for this admission?: Yes Plan: Resolved. (9) Polysubstance abuse Is this a current diagnosis for this admission?: Yes Plan: The patient admits to IV methamphetamine and heroin use. He has detoxed since this admission. He is provided NSAIDs, Tylenol, lidocaine patches for pain control. - Time Time Spent with patient: 15-24 minutes Medications reviewed and adjusted accordingly: Yes
[2017-05-12] MEDS: NORMAL SALINE 10 ML SDV (SCHEDULED) IV SCH (22:01)
[2017-05-13] MEDS: HEPARIN SOD (PORCINE) 5,000 UNIT/ML 1 ML SYRINGE SUBCUT SCH ×3 (07:00→22:30)
[2017-05-13] MEDS: CEFAZOLIN 2 GM/D5W RTU 2 GM/50 ML RTUPB IV SCH (07:00)
[2017-05-13] MEDS: ACETAMINOPHEN 325 MG TABLET PO PRN ×2 (07:01→11:33)
[2017-05-13] MEDS: METFORMIN HCL 500 MG TABLET PO SCH ×2 (08:25→16:01)
[2017-05-13 08:35] LABS: HEMATOCRIT 25.9 % (37.9-51.0); HEMOGLOBIN 8.6 g/dL (13.5-17.0); MEAN CORPUSCULAR HEMOGLOBIN 30.1 pg (27.0-33.4); MEAN CORPUSCULAR HGB CONC 33.3 g/dL (32.0-36.0); MEAN CORPUSCULAR VOLUME 91 fl (80-97); PLATELET COUNT 341 10^3/uL (150-450); RED BLOOD COUNT 2.86 10^6/uL (4.35-5.55); WHITE BLOOD COUNT 17.7 10^3/uL (4.0-10.5)
[2017-05-13 08:56] LABS: ANION GAP 8 (5-19); BLOOD UREA NITROGEN 8 mg/dL (7-20); CALCIUM 7.6 mg/dL (8.4-10.2); CARBON DIOXIDE 29 mmol/L (22-30); CHLORIDE 95 mmol/L (98-107); GLUCOSE 195 mg/dL (75-110); POTASSIUM 3.7 mmol/L (3.6-5.0); SODIUM 131.7 mmol/L (137-145)
[2017-05-13] MEDS: LIDOCAINE 5% (700 MG) TRANSDERMAL ADH..PATCH TP SCH (10:11)
[2017-05-13] MEDS: NORMAL SALINE 10 ML SDV (SCHEDULED) IV SCH (10:11)
[2017-05-13] MEDS: DOCUSATE SODIUM 100 MG CAPSULE PO SCH ×2 (10:11→16:58)
[2017-05-13] MEDS: METOPROLOL SUCCINATE 50 MG TAB.SR.24H PO SCH (10:12)
[2017-05-13] MEDS ORDERED: VANCOMYCIN HCL 0 MG in DEXTROSE 5%-WATER 250 ML IV NR (11:15)
--- NOTE | 2017-05-13 11:20 | PDOC PROGRESS REPORT ---
Subjective Progress Note for:: 05/13/17 Subjective:: Patient relates that he had not been able to sleep too well because of pain mostly localized to both of his knees. He admits that he messed up but that he has not been doing any drugs or smoking for a couple of months. He wants to do better because of his teenage daughters. He also admits not having a physician that might be able to follow through Reason For Visit: SEPSIS ENDOCARDITIS, POLYARTHRITIS, IV DRUG ABUSE Physical Exam Vital Signs: Temp Pulse Resp BP Pulse Ox 98.9 F 96 16 154/85 H 100 05/13/17 03:28 05/13/17 03:28 05/13/17 03:28 05/13/17 03:28 05/13/17 03:28 Pulse Oximeter Continuous Start: 05/05/17 11: 26 Freq: RTQ4 Status: Complete Document 05/11/17 08:00 JDR (Rec: 05/11/17 11:14 JDR [email or web address]) Pulse Oximetry Assessment Oxygen Saturation (92-100) 98 Oxygen Flow Rate (L/min) 2 Oxygen Delivery Method Nasal Cannula Equipment Usage Equipment in Use Continuous SpO2 Machine # 8 Intake & Output 05/12/17 05/13/17 05/14/17 06:59 06:59 06:59 Intake Total 2050 3136 Output Total 4322 3310 Balance -2275 -174 General appearance: PRESENT: no acute distress, cooperative, thin Head exam: PRESENT: atraumatic, normocephalic Eye exam: PRESENT: EOMI, PERRLA Ear exam: PRESENT: normal external ear exam Mouth exam: PRESENT: moist, neck supple Neck exam: PRESENT: full ROM, JVD, tenderness Respiratory exam: PRESENT: clear to auscultation antonio Cardiovascular exam: PRESENT: RRR. ABSENT: diastolic murmur, systolic murmur Vascular exam: PRESENT: normal capillary refill GI/Abdominal exam: PRESENT: normal bowel sounds, soft. ABSENT: tenderness Extremities exam: PRESENT: full ROM. ABSENT: joint swelling Neurological exam: PRESENT: alert, awake, oriented to person, oriented to place , oriented to time Results Laboratory Results: 05/12/17 05:20 05/12/17 05:20 Impressions: Head CT 05/05/17 00:00 IMPRESSION: Limited negative study EVIDENCE OF ACUTE STROKE: NO. Lumbar Spine X-Ray 05/05/17 00:00 IMPRESSION: No acute fracture or malalignment. Multilevel disc space loss of height with anterior osteophyte formation Hip X-Ray 05/05/17 03:18 IMPRESSION: No acute findings. 2010 [employer]- All Rights Reserved Wrist X-Ray 05/05/17 03:18 IMPRESSION: No acute findings. Limited scaphoid views. 2010 [employer]- All Rights Reserved Chest X-Ray 05/05/17 03:23 IMPRESSION: No acute cardiopulmonary findings. 2010 [employer]- All Rights Reserved Guidance Fluoroscopy 05/12/17 00:00 IMPRESSION: SUCCESSFUL PLACEMENT OF A 5 FR DUAL LUMEN 35 CM PICC IN THE RIGHT BASILIC VEIN. Interventional Vascular Procedure 05/12/17 00:00 IMPRESSION: SUCCESSFUL PLACEMENT OF A 5 FR DUAL LUMEN 35 CM PICC IN THE RIGHT BASILIC VEIN. PICC Line Insertion 05/12/17 00:00 IMPRESSION: SUCCESSFUL PLACEMENT OF A 5 FR DUAL LUMEN 35 CM PICC IN THE RIGHT BASILIC VEIN. Assessment & Plan - Diagnosis (1) Arthritis Is this a current diagnosis for this admission?: Yes Plan: Patient made aware need to be attached to a physician who is well acquainted with his overall medical condition. Certainly is worrisome his prior history of abuse of opioids. Will place patient on gabapentin and Cymbalta and follow up response. (2) Acute metabolic encephalopathy Is this a current diagnosis for this admission?: Yes Plan: Resolved (3) Amphetamine abuse Is this a current diagnosis for this admission?: Yes Plan: Patient alleges that he quitted (4) Bacteremia Is this a current diagnosis for this admission?: Yes Plan: Blood culture grew staph aureus which is pansensitive except to erythromycin. Patient currently on cefazolin and will change to vancomycin since cultures postive 2 days ago. (5) Dehydration Is this a current diagnosis for this admission?: Yes Plan: Resolved (6) Endocarditis of tricuspid valve Is this a current diagnosis for this admission?: Yes Plan: Will change cefazolin for vancomycin. Will await 2 days to repeat blood cultures (7) Hyponatremia Is this a current diagnosis for this admission?: Yes Plan: Persisting and likely due to SIADH (8) Anemia Qualifiers: Anemia type: unspecified type Qualified Code(s): D64.9 - Anemia, unspecified Is this a current diagnosis for this admission?: Yes Plan: Will request anemia panel but suspect that is multifactorial primarily nutritional (9) Diabetes Qualifiers: Diabetes mellitus type: type 2 Diabetes mellitus complication status: with diabetic arthropathy Is this a current diagnosis for this admission?: Yes Plan: We will continue metformin. This is a new diagnosis. Hemoglobin A1c 7.3 - Time Time Spent with patient: 15-24 minutes Medications reviewed and adjusted accordingly: Yes Anticipated discharge: Acute Rehab Within: Other - Undetermined at this time - Inpatient Certification Based on my medical assessment, after consideration of the patient's comorbidities, presenting symptoms, or acuity I expect that the services needed warrant INPATIENT care.: Yes I certify that my determination is in accordance with my understanding of Medicare's requirements for reasonable and necessary INPATIENT services [42 CFR 412.3e].: Yes Medical Necessity: Need for IV Antibiotics
[2017-05-13] MEDS: VANCOMYCIN HCL 1,250 MG in DEXTROSE 5%-WATER 250 ML IV SCH ×2 (16:02→22:31)
[2017-05-13] MEDS: GABAPENTIN 300 MG CAPSULE PO SCH (22:30)
[2017-05-13] MEDS: DULOXETINE HCL 30 MG CAPSULE.DR PO SCH (22:31)
[2017-05-13] MEDS: NORMAL SALINE 10 ML SDV (AFTER EACH USE) IV PRN (22:32)
[2017-05-14] MEDS ORDERED: LORAZEPAM INJ 2 MG/1 ML VIAL ONE (00:15)
[2017-05-14] MEDS: NORMAL SALINE 10 ML SDV (SCHEDULED) IV SCH ×3 (01:16→23:23)
[2017-05-14] MEDS: VANCOMYCIN HCL 1,250 MG in DEXTROSE 5%-WATER 250 ML IV SCH ×4 (04:32→20:22)
[2017-05-14] MEDS: HEPARIN SOD (PORCINE) 5,000 UNIT/ML 1 ML SYRINGE SUBCUT SCH ×3 (06:00→23:24)
[2017-05-14 07:53] LABS: ABSOLUTE RETICS # 0.194 10^6/uL (0.028-0.122); RETICULOCYTE COUNT (AUTO) 6.75 % (0.66-2.85)
[2017-05-14 08:13] LABS: VANCOMYCIN,TROUGH 17.3 ug/mL (5.0-20.0)
[2017-05-14] MEDS: METFORMIN HCL 500 MG TABLET PO SCH ×2 (08:17→15:15)
[2017-05-14 09:14] LABS: FOLATE 6.04 ng/mL (>2.76)
[2017-05-14 09:18] LABS: IRON(TIBC) < 10.1 ug/dL (49-181)
[2017-05-14] MEDS: DULOXETINE HCL 30 MG CAPSULE.DR PO SCH ×2 (09:47→23:24)
[2017-05-14] MEDS: DOCUSATE SODIUM 100 MG CAPSULE PO SCH ×2 (09:47→17:31)
[2017-05-14] MEDS: METOPROLOL SUCCINATE 50 MG TAB.SR.24H PO SCH (09:47)
[2017-05-14] MEDS: GABAPENTIN 300 MG CAPSULE PO SCH ×2 (09:47→23:24)
[2017-05-14] MEDS: LIDOCAINE 5% (700 MG) TRANSDERMAL ADH..PATCH TP SCH (09:47)
--- NOTE | 2017-05-14 14:50 | PDOC PROGRESS REPORT ---
Subjective Progress Note for:: 05/14/17 Subjective:: Patient relates that continues having pain. However he appeared somnolent and in no discomfort. Reason For Visit: SEPSIS ENDOCARDITIS, POLYARTHRITIS, IV DRUG ABUSE Physical Exam Vital Signs: Temp Pulse Resp BP Pulse Ox 100.8 F H 107 H 16 145/83 H 100 05/14/17 00:50 05/14/17 00:50 05/14/17 00:50 05/14/17 00:50 05/14/17 00:50 Pulse Oximeter Continuous Start: 05/05/17 11: 26 Freq: RTQ4 Status: Complete Document 05/11/17 08:00 JDR (Rec: 05/11/17 11:14 JDR [email or web address]) Pulse Oximetry Assessment Oxygen Saturation (92-100) 98 Oxygen Flow Rate (L/min) 2 Oxygen Delivery Method Nasal Cannula Equipment Usage Equipment in Use Continuous SpO2 Machine # 8 Intake & Output 05/13/17 05/14/17 05/15/17 06:59 06:59 06:59 Intake Total 3836 2147 Output Total 3310 1700 Balance 526 447 General appearance: PRESENT: no acute distress, cooperative, thin Head exam: PRESENT: atraumatic, normocephalic Eye exam: PRESENT: EOMI, PERRLA Ear exam: PRESENT: normal external ear exam Mouth exam: PRESENT: moist Neck exam: PRESENT: full ROM. ABSENT: JVD, tenderness Respiratory exam: PRESENT: clear to auscultation antonio Cardiovascular exam: PRESENT: RRR. ABSENT: diastolic murmur, systolic murmur Vascular exam: PRESENT: normal capillary refill GI/Abdominal exam: PRESENT: normal bowel sounds, soft. ABSENT: guarding, tenderness Extremities exam: ABSENT: joint swelling, tenderness Neurological exam: PRESENT: alert, oriented to person, oriented to place, CN II- XII grossly intact, other - Mildly somnolent Psychiatric exam: PRESENT: appropriate affect, normal mood Results Laboratory Results: 05/13/17 08:02 05/13/17 08:02 05/13/17 05/13/17 08:02 08:02 WBC 17.7 H RBC 2.86 L Hgb 8.6 L Hct 25.9 L MCV 91 MCH 30.1 MCHC 33.3 RDW 15.0 H Plt Count 341 Sodium 131.7 L Potassium 3.7 Chloride 95 L Carbon Dioxide 29 Anion Gap 8 BUN 8 Creatinine 0.41 L Est GFR ( Amer) > 60 Est GFR (Non-Af Amer) > 60 Glucose 195 H Calcium 7.6 L Impressions: Head CT 05/05/17 00:00 IMPRESSION: Limited negative study EVIDENCE OF ACUTE STROKE: NO. Lumbar Spine X-Ray 05/05/17 00:00 IMPRESSION: No acute fracture or malalignment. Multilevel disc space loss of height with anterior osteophyte formation Hip X-Ray 05/05/17 03:18 IMPRESSION: No acute findings. 2010 [employer]- All Rights Reserved Wrist X-Ray 05/05/17 03:18 IMPRESSION: No acute findings. Limited scaphoid views. 2010 [employer]- All Rights Reserved Chest X-Ray 05/05/17 03:23 IMPRESSION: No acute cardiopulmonary findings. 2010 [employer]- All Rights Reserved Guidance Fluoroscopy 05/12/17 00:00 IMPRESSION: SUCCESSFUL PLACEMENT OF A 5 FR DUAL LUMEN 35 CM PICC IN THE RIGHT BASILIC VEIN. Interventional Vascular Procedure 05/12/17 00:00 IMPRESSION: SUCCESSFUL PLACEMENT OF A 5 FR DUAL LUMEN 35 CM PICC IN THE RIGHT BASILIC VEIN. PICC Line Insertion 05/12/17 00:00 IMPRESSION: SUCCESSFUL PLACEMENT OF A 5 FR DUAL LUMEN 35 CM PICC IN THE RIGHT BASILIC VEIN. Assessment & Plan - Diagnosis (1) Arthritis Is this a current diagnosis for this admission?: Yes Plan: Patient made aware need to be attached to a physician who is well acquainted with his overall medical condition. Certainly is worrisome his prior history of abuse of opioids. Will continue gabapentin and cymbalta as prescribed (2) Acute metabolic encephalopathy Is this a current diagnosis for this admission?: Yes Plan: Resolved (3) Amphetamine abuse Is this a current diagnosis for this admission?: Yes Plan: Patient alleges that he quitted (4) Bacteremia Is this a current diagnosis for this admission?: Yes Plan: Blood culture obtained on May 11 still showing staph aureus which is pansensitive except for erythromycin. Patient was started on vancomycin on May 13. Will go ahead and order a set of blood cultures today. Anticipate will order another set on May 15 and follow up response. (5) Dehydration Is this a current diagnosis for this admission?: Yes Plan: Resolved (6) Endocarditis of tricuspid valve Is this a current diagnosis for this admission?: Yes Plan: Continue vancomycin and will order follow-up blood cultures as delineated previously in bacteremia (7) Hyponatremia Is this a current diagnosis for this admission?: Yes Plan: Persisting and likely due to SIADH. To trend (8) Anemia Qualifiers: Anemia type: iron deficiency Iron deficiency anemia type: inadequate dietary iron intake Qualified Code(s): D50.8 - Other iron deficiency anemias Is this a current diagnosis for this admission?: Yes Plan: Due to iron deficiency and to start supplementation by mouth (9) Diabetes Qualifiers: Diabetes mellitus type: type 2 Diabetes mellitus complication status: with diabetic arthropathy Is this a current diagnosis for this admission?: Yes Plan: We will continue metformin. This is a new diagnosis. Hemoglobin A1c 7.3 - Time Time Spent with patient: 15-24 minutes Medications reviewed and adjusted accordingly: Yes Anticipated discharge: Home Within: Other - Undetermined at this time since required 6 weeks antibiotic therapy - Inpatient Certification Based on my medical assessment, after consideration of the patient's comorbidities, presenting symptoms, or acuity I expect that the services needed warrant INPATIENT care.: Yes Medical Necessity: Need for IV Antibiotics
[2017-05-14] MEDS: FERROUS SULFATE 325 MG TABLET PO SCH (17:31)
[2017-05-15] MEDS: VANCOMYCIN HCL 1,250 MG in DEXTROSE 5%-WATER 250 ML IV SCH ×4 (03:03→20:18)
[2017-05-15] MEDS: HEPARIN SOD (PORCINE) 5,000 UNIT/ML 1 ML SYRINGE SUBCUT SCH ×3 (06:15→22:04)
[2017-05-15] MEDS: METFORMIN HCL 500 MG TABLET PO SCH ×2 (09:39→16:12)
[2017-05-15] MEDS: DOCUSATE SODIUM 100 MG CAPSULE PO SCH ×2 (09:40→16:12)
[2017-05-15] MEDS: NORMAL SALINE 10 ML SDV (SCHEDULED) IV SCH ×2 (09:40→22:11)
[2017-05-15] MEDS: DULOXETINE HCL 30 MG CAPSULE.DR PO SCH ×2 (09:40→22:11)
[2017-05-15] MEDS: FERROUS SULFATE 325 MG TABLET PO SCH ×2 (09:40→16:12)
[2017-05-15] MEDS: LIDOCAINE 5% (700 MG) TRANSDERMAL ADH..PATCH TP SCH (09:41)
[2017-05-15] MEDS: METOPROLOL SUCCINATE 50 MG TAB.SR.24H PO SCH (09:41)
[2017-05-15] MEDS: GABAPENTIN 300 MG CAPSULE PO SCH ×2 (09:41→22:11)
--- NOTE | 2017-05-15 13:50 | PDOC PROGRESS REPORT ---
Subjective Progress Note for:: 05/15/17 Subjective:: Patient relates that feels better and expresses his gratitude Reason For Visit: SEPSIS ENDOCARDITIS, POLYARTHRITIS, IV DRUG ABUSE Physical Exam Vital Signs: Temp Pulse Resp BP Pulse Ox 98.5 F 104 H 18 140/81 H 98 05/15/17 04:22 05/15/17 04:22 05/15/17 04:22 05/15/17 04:22 05/15/17 04:22 Pulse Oximeter Continuous Start: 05/05/17 11: 26 Freq: RTQ4 Status: Complete Document 05/11/17 08:00 JDR (Rec: 05/11/17 11:14 JDR [email or web address]) Pulse Oximetry Assessment Oxygen Saturation (92-100) 98 Oxygen Flow Rate (L/min) 2 Oxygen Delivery Method Nasal Cannula Equipment Usage Equipment in Use Continuous SpO2 Machine # 8 Intake & Output 05/14/17 05/15/17 05/16/17 06:59 06:59 06:59 Intake Total 2147 1980 Output Total 1700 3600 Balance 447 -1620 Results Laboratory Results: 05/13/17 08:02 05/13/17 08:02 05/14/17 05/14/17 07:30 07:30 Retic Count (auto) 6.75 H Absolute Retic 0.194 H Iron < 10.1 L TIBC 184 L % Saturation UNABLE TO CALCULATE Ferritin 580.00 H Vitamin B12 > 1000.0 H Folate 6.04 05/11/17 19:50 Blood Blood Culture - Final Staphylococcus Aureus 05/11/17 19:40 Blood Blood Culture - Final Staphylococcus Aureus Impressions: Head CT 05/05/17 00:00 IMPRESSION: Limited negative study EVIDENCE OF ACUTE STROKE: NO. Lumbar Spine X-Ray 05/05/17 00:00 IMPRESSION: No acute fracture or malalignment. Multilevel disc space loss of height with anterior osteophyte formation Hip X-Ray 05/05/17 03:18 IMPRESSION: No acute findings. 2010 [employer]- All Rights Reserved Wrist X-Ray 05/05/17 03:18 IMPRESSION: No acute findings. Limited scaphoid views. 2010 [employer]- All Rights Reserved Chest X-Ray 05/05/17 03:23 IMPRESSION: No acute cardiopulmonary findings. 2010 [employer]- All Rights Reserved Guidance Fluoroscopy 05/12/17 00:00 IMPRESSION: SUCCESSFUL PLACEMENT OF A 5 FR DUAL LUMEN 35 CM PICC IN THE RIGHT BASILIC VEIN. Interventional Vascular Procedure 05/12/17 00:00 IMPRESSION: SUCCESSFUL PLACEMENT OF A 5 FR DUAL LUMEN 35 CM PICC IN THE RIGHT BASILIC VEIN. PICC Line Insertion 05/12/17 00:00 IMPRESSION: SUCCESSFUL PLACEMENT OF A 5 FR DUAL LUMEN 35 CM PICC IN THE RIGHT BASILIC VEIN. Assessment & Plan - Diagnosis (1) Arthritis Is this a current diagnosis for this admission?: Yes Plan: Patient made aware needs to be attached to a physician who is well acquainted with his overall medical condition. Certainly is worrisome his prior history of abuse of opioids. Continue gabapentin and cymbalta as prescribed (2) Acute metabolic encephalopathy Is this a current diagnosis for this admission?: Yes Plan: Resolved (3) Amphetamine abuse Is this a current diagnosis for this admission?: Yes Plan: Patient alleges that he quitted (4) Bacteremia Is this a current diagnosis for this admission?: Yes Plan: Blood culture obtained on May 11 still showing staph aureus which is pansensitive except for erythromycin. Patient was started on vancomycin on May 13. Blood culture preliminary result which was obtained on May 14 is negative. Will continue vancomycin. (5) Dehydration Is this a current diagnosis for this admission?: Yes Plan: Resolved (6) Endocarditis of tricuspid valve Is this a current diagnosis for this admission?: Yes Plan: Continue vancomycin (7) Hyponatremia Is this a current diagnosis for this admission?: Yes Plan: Persisting and likely due to SIADH. To trend (8) Anemia Qualifiers: Anemia type: iron deficiency Iron deficiency anemia type: inadequate dietary iron intake Qualified Code(s): D50.8 - Other iron deficiency anemias Is this a current diagnosis for this admission?: Yes Plan: Due to iron deficiency. Continue iron supplementation by mouth (9) Diabetes Qualifiers: Diabetes mellitus type: type 2 Diabetes mellitus complication status: with diabetic arthropathy Is this a current diagnosis for this admission?: Yes Plan: We will continue metformin. This is a new diagnosis. Hemoglobin A1c 7.3. Patient informed - Time Time Spent with patient: 15-24 minutes Medications reviewed and adjusted accordingly: Yes Anticipated discharge: Other - will need IV antibotic therapy for 6 weeks - Inpatient Certification Based on my medical assessment, after consideration of the patient's comorbidities, presenting symptoms, or acuity I expect that the services needed warrant INPATIENT care.: Yes Medical Necessity: Need for IV Antibiotics
[2017-05-16] MEDS: VANCOMYCIN HCL 1,250 MG in DEXTROSE 5%-WATER 250 ML IV SCH ×4 (03:40→21:34)
[2017-05-16] MEDS: HEPARIN SOD (PORCINE) 5,000 UNIT/ML 1 ML SYRINGE SUBCUT SCH ×3 (05:40→21:29)
[2017-05-16 06:06] LABS: ABSOLUTE BASOPHILS # (AUTO) 0.1 10^3/uL (0.0-0.2); ABSOLUTE LYMPHOCYTES (AUTO) 2.4 10^3/uL (0.5-4.7); ABSOLUTE MONOCYTES (AUTO) 0.7 10^3/uL (0.1-1.4); ABSOLUTE NEUT (AUTO) 14.4 10^3/uL (1.7-8.2); BASOPHILS % (AUTO) 0.3 % (0-2); EOSINOPHILS % (AUTO) 0.3 % (0-6); HEMATOCRIT 26.1 % (37.9-51.0); HEMOGLOBIN 8.9 g/dL (13.5-17.0); LYMPHOCYTES % (AUTO) 13.6 % (13-45); MEAN CORPUSCULAR HEMOGLOBIN 30.3 pg (27.0-33.4); MEAN CORPUSCULAR HGB CONC 34.1 g/dL (32.0-36.0); MEAN CORPUSCULAR VOLUME 89 fl (80-97); MONOCYTES % (AUTO) 3.9 % (3-13); PLATELET COUNT 378 10^3/uL (150-450); RED BLOOD COUNT 2.93 10^6/uL (4.35-5.55); RED CELL DISTRIBUTION WIDTH 15.6 % (11.5-14.0); SEGMENTED NEUTROPHILS % (AUTO) 81.9 % (42-78); TOTAL CELLS COUNTED % (AUTO) 100 %; WHITE BLOOD COUNT 17.6 10^3/uL (4.0-10.5)
[2017-05-16 06:36] LABS: ALANINE AMINOTRANSFERASE 51 U/L (21-72); ALBUMIN 2.4 g/dL (3.5-5.0); ALKALINE PHOSPHATASE 79 U/L (38-126); ANION GAP 8 (5-19); ASPARTATE AMINO TRANSFERASE 56 U/L (17-59); BILIRUBIN,DIRECT 0.3 mg/dL (0.0-0.4); BILIRUBIN,TOTAL 0.4 mg/dL (0.2-1.3); BLOOD UREA NITROGEN 8 mg/dL (7-20); CALCIUM 8.1 mg/dL (8.4-10.2); CARBON DIOXIDE 29 mmol/L (22-30); CHLORIDE 92 mmol/L (98-107); GLUCOSE 185 mg/dL (75-110); MAGNESIUM 1.7 mg/dL (1.6-2.3); POTASSIUM 4.1 mmol/L (3.6-5.0); SODIUM 129.4 mmol/L (137-145); TOTAL PROTEIN 6.6 g/dL (6.3-8.2)
[2017-05-16] MEDS: LIDOCAINE 5% (700 MG) TRANSDERMAL ADH..PATCH TP SCH (09:44)
[2017-05-16] MEDS: METFORMIN HCL 500 MG TABLET PO SCH ×2 (09:44→17:21)
[2017-05-16] MEDS: DOCUSATE SODIUM 100 MG CAPSULE PO SCH ×2 (09:45→17:20)
[2017-05-16] MEDS: FERROUS SULFATE 325 MG TABLET PO SCH ×2 (09:45→17:21)
[2017-05-16] MEDS: DULOXETINE HCL 30 MG CAPSULE.DR PO SCH ×2 (09:46→21:34)
[2017-05-16] MEDS: NORMAL SALINE 10 ML SDV (SCHEDULED) IV SCH ×2 (09:46→21:34)
[2017-05-16] MEDS: GABAPENTIN 300 MG CAPSULE PO SCH ×2 (09:46→21:34)
[2017-05-16] MEDS: METOPROLOL SUCCINATE 50 MG TAB.SR.24H PO SCH (09:46)
--- NOTE | 2017-05-16 13:16 | PDOC PROGRESS REPORT ---
Subjective Progress Note for:: 05/16/17 Subjective:: Denies any complaints today. Reason For Visit: SEPSIS ENDOCARDITIS, POLYARTHRITIS, IV DRUG ABUSE Physical Exam Vital Signs: Temp Pulse Resp BP Pulse Ox 98.5 F 104 H 16 139/75 H 99 05/16/17 03:52 05/16/17 07:00 05/16/17 03:52 05/16/17 03:52 05/16/17 03:52 Pulse Oximeter Continuous Start: 05/05/17 11: 26 Freq: RTQ4 Status: Complete Document 05/11/17 08:00 JDR (Rec: 05/11/17 11:14 [id number] [email or web address]) Pulse Oximetry Assessment Oxygen Saturation (92-100) 98 Oxygen Flow Rate (L/min) 2 Oxygen Delivery Method Nasal Cannula Equipment Usage Equipment in Use Continuous SpO2 Machine # 8 Intake & Output 05/15/17 05/16/17 05/17/17 06:59 06:59 06:59 Intake Total 2530 2742 Output Total 3600 2550 Balance -1070 192 General appearance: PRESENT: no acute distress Eye exam: PRESENT: conjunctiva pink. ABSENT: scleral icterus Mouth exam: PRESENT: moist, tongue midline Neck exam: ABSENT: JVD Respiratory exam: ABSENT: rales, rhonchi, wheezes Cardiovascular exam: PRESENT: RRR. ABSENT: diastolic murmur, rubs, systolic murmur GI/Abdominal exam: PRESENT: normal bowel sounds, soft. ABSENT: distended, guarding, mass, organolmegaly, rebound, tenderness Extremities exam: ABSENT: calf tenderness, clubbing, pedal edema Neurological exam: PRESENT: alert, awake, oriented to person, oriented to place , oriented to time, oriented to situation, CN II-XII grossly intact. ABSENT: motor sensory deficit Psychiatric exam: PRESENT: appropriate affect Skin exam: PRESENT: dry, intact, warm. ABSENT: cyanosis, rash Results Laboratory Results: 05/16/17 05:30 05/16/17 05:30 05/16/17 05/16/17 05:30 05:30 WBC 17.6 H RBC 2.93 L Hgb 8.9 L Hct 26.1 L MCV 89 MCH 30.3 MCHC 34.1 RDW 15.6 H Plt Count 378 Seg Neutrophils % 81.9 H Lymphocytes % 13.6 Monocytes % 3.9 Eosinophils % 0.3 Basophils % 0.3 Absolute Neutrophils 14.4 H Absolute Lymphocytes 2.4 Absolute Monocytes 0.7 Absolute Eosinophils 0.0 Absolute Basophils 0.1 Sodium 129.4 L Potassium 4.1 Chloride 92 L Carbon Dioxide 29 Anion Gap 8 BUN 8 Creatinine 0.44 L Est GFR ( Amer) > 60 Est GFR (Non-Af Amer) > 60 Glucose 185 H Calcium 8.1 L Magnesium 1.7 Total Bilirubin 0.4 AST 56 ALT 51 Alkaline Phosphatase 79 Total Protein 6.6 Albumin 2.4 L Impressions: Head CT 05/05/17 00:00 IMPRESSION: Limited negative study EVIDENCE OF ACUTE STROKE: NO. Lumbar Spine X-Ray 05/05/17 00:00 IMPRESSION: No acute fracture or malalignment. Multilevel disc space loss of height with anterior osteophyte formation Hip X-Ray 05/05/17 03:18 IMPRESSION: No acute findings. 2010 [employer]- All Rights Reserved Wrist X-Ray 05/05/17 03:18 IMPRESSION: No acute findings. Limited scaphoid views. 2010 [employer]- All Rights Reserved Chest X-Ray 05/05/17 03:23 IMPRESSION: No acute cardiopulmonary findings. 2010 [employer]- All Rights Reserved Guidance Fluoroscopy 05/12/17 00:00 IMPRESSION: SUCCESSFUL PLACEMENT OF A 5 FR DUAL LUMEN 35 CM PICC IN THE RIGHT BASILIC VEIN. Interventional Vascular Procedure 05/12/17 00:00 IMPRESSION: SUCCESSFUL PLACEMENT OF A 5 FR DUAL LUMEN 35 CM PICC IN THE RIGHT BASILIC VEIN. PICC Line Insertion 05/12/17 00:00 IMPRESSION: SUCCESSFUL PLACEMENT OF A 5 FR DUAL LUMEN 35 CM PICC IN THE RIGHT BASILIC VEIN. Assessment & Plan - Diagnosis (1) Acute metabolic encephalopathy Is this a current diagnosis for this admission?: Yes Plan: Resolved. Most likely secondary to substance abuse. (2) Bacteremia Is this a current diagnosis for this admission?: Yes Plan: Patient has endocarditis involving the tricuspid valve. Will need a total of 6 weeks of IV antibiotics. (3) Dehydration Is this a current diagnosis for this admission?: Yes Plan: Resolved (4) Hyponatremia Is this a current diagnosis for this admission?: Yes Plan: Stable - Time Time Spent with patient: 25-34 minutes - Inpatient Certification Medical Necessity: Need for IV Antibiotics
[2017-05-17] MEDS: VANCOMYCIN HCL 1,250 MG in DEXTROSE 5%-WATER 250 ML IV SCH ×4 (02:45→21:27)
[2017-05-17] MEDS: HEPARIN SOD (PORCINE) 5,000 UNIT/ML 1 ML SYRINGE SUBCUT SCH ×3 (05:07→21:29)
[2017-05-17 06:13] LABS: ABSOLUTE BASOPHILS # (AUTO) 0.1 10^3/uL (0.0-0.2); ABSOLUTE EOSINOPHILS # (AUTO) 0.1 10^3/uL (0.0-0.6); ABSOLUTE LYMPHOCYTES (AUTO) 2.6 10^3/uL (0.5-4.7); ABSOLUTE MONOCYTES (AUTO) 0.9 10^3/uL (0.1-1.4); ABSOLUTE NEUT (AUTO) 13.4 10^3/uL (1.7-8.2); BASOPHILS % (AUTO) 0.3 % (0-2); EOSINOPHILS % (AUTO) 0.3 % (0-6); HEMATOCRIT 26.4 % (37.9-51.0); HEMOGLOBIN 8.9 g/dL (13.5-17.0); LYMPHOCYTES % (AUTO) 15.3 % (13-45); MEAN CORPUSCULAR HEMOGLOBIN 30.2 pg (27.0-33.4); MEAN CORPUSCULAR HGB CONC 33.8 g/dL (32.0-36.0); MEAN CORPUSCULAR VOLUME 90 fl (80-97); MONOCYTES % (AUTO) 5.4 % (3-13); PLATELET COUNT 396 10^3/uL (150-450); RED BLOOD COUNT 2.94 10^6/uL (4.35-5.55); RED CELL DISTRIBUTION WIDTH 15.8 % (11.5-14.0); SEGMENTED NEUTROPHILS % (AUTO) 78.7 % (42-78); TOTAL CELLS COUNTED % (AUTO) 100 %
[2017-05-17 06:32] LABS: ANION GAP 8 (5-19); BLOOD UREA NITROGEN 9 mg/dL (7-20); CALCIUM 8.3 mg/dL (8.4-10.2); CARBON DIOXIDE 30 mmol/L (22-30); CHLORIDE 92 mmol/L (98-107); GLUCOSE 170 mg/dL (75-110); POTASSIUM 4.2 mmol/L (3.6-5.0); SODIUM 129.5 mmol/L (137-145)
[2017-05-17] MEDS: DOCUSATE SODIUM 100 MG CAPSULE PO SCH ×2 (10:39→19:35)
[2017-05-17] MEDS: DULOXETINE HCL 30 MG CAPSULE.DR PO SCH ×2 (10:39→21:25)
[2017-05-17] MEDS: GABAPENTIN 300 MG CAPSULE PO SCH ×2 (10:39→21:25)
[2017-05-17] MEDS: METFORMIN HCL 500 MG TABLET PO SCH ×2 (10:39→15:57)
[2017-05-17] MEDS: METOPROLOL SUCCINATE 50 MG TAB.SR.24H PO SCH (10:39)
[2017-05-17] MEDS: FERROUS SULFATE 325 MG TABLET PO SCH ×2 (10:39→19:35)
[2017-05-17] MEDS: LIDOCAINE 5% (700 MG) TRANSDERMAL ADH..PATCH TP SCH (10:41)
[2017-05-17] MEDS: NORMAL SALINE 10 ML SDV (SCHEDULED) IV SCH ×2 (10:41→21:25)
--- NOTE | 2017-05-17 14:52 | PDOC PROGRESS REPORT ---
Subjective Progress Note for:: 05/17/17 Subjective:: Denies any complaints today. Reason For Visit: SEPSIS ENDOCARDITIS, POLYARTHRITIS, IV DRUG ABUSE Physical Exam Vital Signs: Temp Pulse Resp BP Pulse Ox 98.2 F 103 H 12 134/80 H 100 05/17/17 10:52 05/17/17 10:52 05/17/17 10:52 05/17/17 10:52 05/17/17 10:52 Pulse Oximeter Continuous Start: 05/05/17 11: 26 Freq: RTQ4 Status: Complete Document 05/11/17 08:00 JDR (Rec: 05/11/17 11:14 JDR [email or web address]) Pulse Oximetry Assessment Oxygen Saturation (92-100) 98 Oxygen Flow Rate (L/min) 2 Oxygen Delivery Method Nasal Cannula Equipment Usage Equipment in Use Continuous SpO2 Machine # 8 Intake & Output 05/16/17 05/17/17 05/18/17 06:59 06:59 06:59 Intake Total 2742 2652 Output Total 2550 2200 Balance 192 452 General appearance: PRESENT: no acute distress Eye exam: PRESENT: conjunctiva pink. ABSENT: scleral icterus Mouth exam: PRESENT: moist, tongue midline Neck exam: ABSENT: JVD Respiratory exam: PRESENT: clear to auscultation antonio. ABSENT: rales, rhonchi, wheezes Cardiovascular exam: PRESENT: RRR. ABSENT: diastolic murmur, rubs, systolic murmur GI/Abdominal exam: PRESENT: normal bowel sounds, soft. ABSENT: distended, guarding, mass, organolmegaly, rebound, tenderness Extremities exam: ABSENT: calf tenderness, clubbing, pedal edema Neurological exam: PRESENT: alert, awake, oriented to person, oriented to place , oriented to time, oriented to situation, CN II-XII grossly intact. ABSENT: motor sensory deficit Psychiatric exam: PRESENT: appropriate affect Skin exam: PRESENT: dry, intact, warm. ABSENT: cyanosis, rash Results Laboratory Results: 05/17/17 05:15 05/17/17 05:15 05/14/17 05/17/17 05/17/17 07:30 05:15 05:15 WBC 17.0 H RBC 2.94 L Hgb 8.9 L Hct 26.4 L MCV 90 MCH 30.2 MCHC 33.8 RDW 15.8 H Plt Count 396 Seg Neutrophils % 78.7 H Lymphocytes % 15.3 Monocytes % 5.4 Eosinophils % 0.3 Basophils % 0.3 Absolute Neutrophils 13.4 H Absolute Lymphocytes 2.6 Absolute Monocytes 0.9 Absolute Eosinophils 0.1 Absolute Basophils 0.1 Sodium 129.5 L Potassium 4.2 Chloride 92 L Carbon Dioxide 30 Anion Gap 8 BUN 9 Creatinine 0.44 L Est GFR ( Amer) > 60 Est GFR (Non-Af Amer) > 60 Glucose 170 H Calcium 8.3 L Transferrin 109 L Impressions: Head CT 05/05/17 00:00 IMPRESSION: Limited negative study EVIDENCE OF ACUTE STROKE: NO. Lumbar Spine X-Ray 05/05/17 00:00 IMPRESSION: No acute fracture or malalignment. Multilevel disc space loss of height with anterior osteophyte formation Hip X-Ray 05/05/17 03:18 IMPRESSION: No acute findings. 2010 [employer]- All Rights Reserved Wrist X-Ray 05/05/17 03:18 IMPRESSION: No acute findings. Limited scaphoid views. 2010 [employer]- All Rights Reserved Chest X-Ray 05/05/17 03:23 IMPRESSION: No acute cardiopulmonary findings. 2010 [employer]- All Rights Reserved Guidance Fluoroscopy 05/12/17 00:00 IMPRESSION: SUCCESSFUL PLACEMENT OF A 5 FR DUAL LUMEN 35 CM PICC IN THE RIGHT BASILIC VEIN. Interventional Vascular Procedure 05/12/17 00:00 IMPRESSION: SUCCESSFUL PLACEMENT OF A 5 FR DUAL LUMEN 35 CM PICC IN THE RIGHT BASILIC VEIN. PICC Line Insertion 05/12/17 00:00 IMPRESSION: SUCCESSFUL PLACEMENT OF A 5 FR DUAL LUMEN 35 CM PICC IN THE RIGHT BASILIC VEIN. Assessment & Plan - Diagnosis (1) Acute metabolic encephalopathy Is this a current diagnosis for this admission?: Yes Plan: Resolved. Most likely secondary to substance abuse. (2) Bacteremia Is this a current diagnosis for this admission?: Yes Plan: Patient has endocarditis involving the tricuspid valve. Will need a total of 6 weeks of IV antibiotics from the first negative blood culture. The May 11 blood culture so far is negative. (3) Dehydration Is this a current diagnosis for this admission?: Yes Plan: Resolved (4) Hyponatremia Is this a current diagnosis for this admission?: Yes Plan: Stable - Time Time Spent with patient: 25-34 minutes - Inpatient Certification Medical Necessity: Need for IV Antibiotics
[2017-05-18] MEDS: VANCOMYCIN HCL 1,250 MG in DEXTROSE 5%-WATER 250 ML IV SCH ×4 (03:52→22:21)
[2017-05-18] MEDS: HEPARIN SOD (PORCINE) 5,000 UNIT/ML 1 ML SYRINGE SUBCUT SCH ×3 (05:24→22:21)
[2017-05-18] MEDS: LIDOCAINE 5% (700 MG) TRANSDERMAL ADH..PATCH TP SCH (09:55)
[2017-05-18] MEDS: NORMAL SALINE 10 ML SDV (SCHEDULED) IV SCH ×2 (09:55→22:21)
[2017-05-18] MEDS: METOPROLOL SUCCINATE 50 MG TAB.SR.24H PO SCH (09:56)
[2017-05-18] MEDS: GABAPENTIN 300 MG CAPSULE PO SCH ×2 (09:56→22:21)
[2017-05-18] MEDS: DOCUSATE SODIUM 100 MG CAPSULE PO SCH ×2 (09:56→17:42)
[2017-05-18] MEDS: METFORMIN HCL 500 MG TABLET PO SCH ×2 (09:56→16:01)
[2017-05-18] MEDS: DULOXETINE HCL 30 MG CAPSULE.DR PO SCH ×2 (09:56→22:21)
[2017-05-18] MEDS: FERROUS SULFATE 325 MG TABLET PO SCH ×2 (09:56→17:43)
--- NOTE | 2017-05-18 12:34 | PDOC PROGRESS REPORT ---
Subjective Progress Note for:: 05/18/17 Subjective:: Denies any complaints today. Reason For Visit: SEPSIS ENDOCARDITIS, POLYARTHRITIS, IV DRUG ABUSE Physical Exam Vital Signs: Temp Pulse Resp BP Pulse Ox 99.1 F 108 H 17 119/70 98 05/18/17 03:44 05/18/17 07:00 05/18/17 03:44 05/18/17 03:44 05/18/17 03:44 Pulse Oximeter Continuous Start: 05/05/17 11: 26 Freq: RTQ4 Status: Complete Document 05/11/17 08:00 JDR (Rec: 05/11/17 11:14 JDR [email or web address]) Pulse Oximetry Assessment Oxygen Saturation (92-100) 98 Oxygen Flow Rate (L/min) 2 Oxygen Delivery Method Nasal Cannula Equipment Usage Equipment in Use Continuous SpO2 Machine # 8 Intake & Output 05/17/17 05/18/17 05/19/17 06:59 06:59 06:59 Intake Total 2652 2110 Output Total 2200 1700 Balance 452 410 General appearance: PRESENT: no acute distress, well-developed, well-nourished Eye exam: PRESENT: conjunctiva pink. ABSENT: scleral icterus Neck exam: ABSENT: JVD Respiratory exam: PRESENT: clear to auscultation antonio. ABSENT: rales, rhonchi, wheezes Cardiovascular exam: PRESENT: RRR. ABSENT: diastolic murmur, rubs, systolic murmur GI/Abdominal exam: PRESENT: normal bowel sounds, soft. ABSENT: distended, guarding, mass, organolmegaly, rebound, tenderness Extremities exam: ABSENT: calf tenderness, clubbing, pedal edema Skin exam: PRESENT: dry, intact, warm. ABSENT: cyanosis, rash Results Laboratory Results: 05/17/17 05:15 05/17/17 05:15 Impressions: Head CT 05/05/17 00:00 IMPRESSION: Limited negative study EVIDENCE OF ACUTE STROKE: NO. Lumbar Spine X-Ray 05/05/17 00:00 IMPRESSION: No acute fracture or malalignment. Multilevel disc space loss of height with anterior osteophyte formation Hip X-Ray 05/05/17 03:18 IMPRESSION: No acute findings. 2010 [email or web address]- All Rights Reserved Wrist X-Ray 05/05/17 03:18 IMPRESSION: No acute findings. Limited scaphoid views. 2010 [email or web address]- All Rights Reserved Chest X-Ray 05/05/17 03:23 IMPRESSION: No acute cardiopulmonary findings. 2010 [email or web address]- All Rights Reserved Guidance Fluoroscopy 05/12/17 00:00 IMPRESSION: SUCCESSFUL PLACEMENT OF A 5 FR DUAL LUMEN 35 CM PICC IN THE RIGHT BASILIC VEIN. Interventional Vascular Procedure 05/12/17 00:00 IMPRESSION: SUCCESSFUL PLACEMENT OF A 5 FR DUAL LUMEN 35 CM PICC IN THE RIGHT BASILIC VEIN. PICC Line Insertion 05/12/17 00:00 IMPRESSION: SUCCESSFUL PLACEMENT OF A 5 FR DUAL LUMEN 35 CM PICC IN THE RIGHT BASILIC VEIN. Assessment & Plan - Diagnosis (1) Acute metabolic encephalopathy Is this a current diagnosis for this admission?: Yes Plan: Resolved. Most likely secondary to substance abuse. (2) Bacteremia Is this a current diagnosis for this admission?: Yes Plan: Patient has endocarditis involving the tricuspid valve. Will need a total of 6 weeks of IV antibiotics from the first negative blood culture. The May 11 blood culture is now growing out staph aureus (3) Dehydration Is this a current diagnosis for this admission?: Yes Plan: Resolved (4) Hyponatremia Is this a current diagnosis for this admission?: Yes Plan: Stable - Time Time Spent with patient: 25-34 minutes - Inpatient Certification Medical Necessity: Need for IV Antibiotics
[2017-05-19] MEDS: VANCOMYCIN HCL 1,250 MG in DEXTROSE 5%-WATER 250 ML IV SCH ×4 (02:49→23:21)
[2017-05-19] MEDS: HEPARIN SOD (PORCINE) 5,000 UNIT/ML 1 ML SYRINGE SUBCUT SCH ×3 (05:16→23:21)
[2017-05-19 05:38] LABS: ABSOLUTE BASOPHILS # (AUTO) 0.1 10^3/uL (0.0-0.2); ABSOLUTE EOSINOPHILS # (AUTO) 0.1 10^3/uL (0.0-0.6); ABSOLUTE LYMPHOCYTES (AUTO) 3.5 10^3/uL (0.5-4.7); ABSOLUTE NEUT (AUTO) 13.7 10^3/uL (1.7-8.2); BASOPHILS % (AUTO) 0.6 % (0-2); EOSINOPHILS % (AUTO) 0.5 % (0-6); HEMATOCRIT 28.1 % (37.9-51.0); HEMOGLOBIN 9.5 g/dL (13.5-17.0); LYMPHOCYTES % (AUTO) 19.1 % (13-45); MEAN CORPUSCULAR HEMOGLOBIN 30.1 pg (27.0-33.4); MEAN CORPUSCULAR HGB CONC 33.8 g/dL (32.0-36.0); MEAN CORPUSCULAR VOLUME 89 fl (80-97); MONOCYTES % (AUTO) 5.4 % (3-13); PLATELET COUNT 406 10^3/uL (150-450); RED BLOOD COUNT 3.15 10^6/uL (4.35-5.55); RED CELL DISTRIBUTION WIDTH 16.2 % (11.5-14.0); SEGMENTED NEUTROPHILS % (AUTO) 74.4 % (42-78); TOTAL CELLS COUNTED % (AUTO) 100 %; WHITE BLOOD COUNT 18.5 10^3/uL (4.0-10.5)
[2017-05-19 06:06] LABS: ANION GAP 8 (5-19); BLOOD UREA NITROGEN 12 mg/dL (7-20); CALCIUM 8.4 mg/dL (8.4-10.2); CARBON DIOXIDE 30 mmol/L (22-30); CHLORIDE 93 mmol/L (98-107); GLUCOSE 180 mg/dL (75-110); POTASSIUM 4.4 mmol/L (3.6-5.0); SODIUM 130.8 mmol/L (137-145)
[2017-05-19] MEDS: NORMAL SALINE 10 ML SDV (SCHEDULED) IV SCH ×2 (09:24→23:22)
[2017-05-19] MEDS: GABAPENTIN 300 MG CAPSULE PO SCH ×2 (09:25→23:17)
[2017-05-19] MEDS: DULOXETINE HCL 30 MG CAPSULE.DR PO SCH ×2 (09:25→23:20)
[2017-05-19] MEDS: METFORMIN HCL 500 MG TABLET PO SCH ×2 (09:25→17:41)
[2017-05-19] MEDS: METOPROLOL SUCCINATE 50 MG TAB.SR.24H PO SCH (09:25)
[2017-05-19] MEDS: FERROUS SULFATE 325 MG TABLET PO SCH ×2 (09:25→17:41)
[2017-05-19] MEDS: DOCUSATE SODIUM 100 MG CAPSULE PO SCH ×2 (09:26→17:41)
[2017-05-19] MEDS: LIDOCAINE 5% (700 MG) TRANSDERMAL ADH..PATCH TP SCH (09:26)
[2017-05-19 10:15] LABS: VANCOMYCIN,TROUGH 14.1 ug/mL (5.0-20.0)
--- NOTE | 2017-05-19 14:27 | PDOC PROGRESS REPORT ---
Subjective Progress Note for:: 05/19/17 Subjective:: Denies any complaints today. Reason For Visit: SEPSIS ENDOCARDITIS, POLYARTHRITIS, IV DRUG ABUSE Physical Exam Vital Signs: Temp Pulse Resp BP Pulse Ox 98.5 F 98 16 110/60 99 05/19/17 11:25 05/19/17 11:25 05/19/17 11:25 05/19/17 11:25 05/19/17 11:25 Pulse Oximeter Continuous Start: 05/05/17 11: 26 Freq: RTQ4 Status: Complete Document 05/11/17 08:00 JDR (Rec: 05/11/17 11:14 JDR [email or web address]) Pulse Oximetry Assessment Oxygen Saturation (92-100) 98 Oxygen Flow Rate (L/min) 2 Oxygen Delivery Method Nasal Cannula Equipment Usage Equipment in Use Continuous SpO2 Machine # 8 Intake & Output 05/18/17 05/19/17 05/20/17 06:59 06:59 06:59 Intake Total 2110 1500 Output Total 1700 1350 Balance 410 150 Weight 68.6 kg General appearance: PRESENT: no acute distress Eye exam: PRESENT: conjunctiva pink. ABSENT: scleral icterus Mouth exam: PRESENT: moist, tongue midline Neck exam: ABSENT: JVD Respiratory exam: PRESENT: clear to auscultation antonio. ABSENT: rales, rhonchi, wheezes Cardiovascular exam: PRESENT: RRR. ABSENT: diastolic murmur, rubs, systolic murmur GI/Abdominal exam: PRESENT: normal bowel sounds, soft. ABSENT: distended, guarding, mass, organolmegaly, rebound, tenderness Extremities exam: ABSENT: calf tenderness, clubbing, pedal edema Neurological exam: PRESENT: alert, awake, oriented to person, oriented to place , oriented to time, oriented to situation, CN II-XII grossly intact. ABSENT: motor sensory deficit Psychiatric exam: PRESENT: appropriate affect Skin exam: PRESENT: dry, intact, warm. ABSENT: cyanosis, rash Results Laboratory Results: 05/19/17 04:54 05/19/17 04:54 05/19/17 05/19/17 04:54 04:54 WBC 18.5 H RBC 3.15 L Hgb 9.5 L Hct 28.1 L MCV 89 MCH 30.1 MCHC 33.8 RDW 16.2 H Plt Count 406 Seg Neutrophils % 74.4 Lymphocytes % 19.1 Monocytes % 5.4 Eosinophils % 0.5 Basophils % 0.6 Absolute Neutrophils 13.7 H Absolute Lymphocytes 3.5 Absolute Monocytes 1.0 Absolute Eosinophils 0.1 Absolute Basophils 0.1 Sodium 130.8 L Potassium 4.4 Chloride 93 L Carbon Dioxide 30 Anion Gap 8 BUN 12 Creatinine 0.42 L Est GFR ( Amer) > 60 Est GFR (Non-Af Amer) > 60 Glucose 180 H Calcium 8.4 05/14/17 14:08 Blood Blood Culture - Final NO GROWTH IN 5 DAYS 05/14/17 10:26 Blood Blood Culture - Final NO GROWTH IN 5 DAYS Impressions: Head CT 05/05/17 00:00 IMPRESSION: Limited negative study EVIDENCE OF ACUTE STROKE: NO. Lumbar Spine X-Ray 05/05/17 00:00 IMPRESSION: No acute fracture or malalignment. Multilevel disc space loss of height with anterior osteophyte formation Hip X-Ray 05/05/17 03:18 IMPRESSION: No acute findings. 2010 [employer]- All Rights Reserved Wrist X-Ray 05/05/17 03:18 IMPRESSION: No acute findings. Limited scaphoid views. 2010 [employer]- All Rights Reserved Chest X-Ray 05/05/17 03:23 IMPRESSION: No acute cardiopulmonary findings. 2010 [employer]- All Rights Reserved Guidance Fluoroscopy 05/12/17 00:00 IMPRESSION: SUCCESSFUL PLACEMENT OF A 5 FR DUAL LUMEN 35 CM PICC IN THE RIGHT BASILIC VEIN. Interventional Vascular Procedure 05/12/17 00:00 IMPRESSION: SUCCESSFUL PLACEMENT OF A 5 FR DUAL LUMEN 35 CM PICC IN THE RIGHT BASILIC VEIN. PICC Line Insertion 05/12/17 00:00 IMPRESSION: SUCCESSFUL PLACEMENT OF A 5 FR DUAL LUMEN 35 CM PICC IN THE RIGHT BASILIC VEIN. Assessment & Plan - Diagnosis (1) Acute metabolic encephalopathy Is this a current diagnosis for this admission?: Yes Plan: Resolved. Most likely secondary to substance abuse. (2) Bacteremia Is this a current diagnosis for this admission?: Yes Plan: Patient has endocarditis involving the tricuspid valve. Will need a total of 6 weeks of IV antibiotics from the first negative blood culture. The May 11 blood culture is now growing out staph aureus. The May 14 cultures are negative so far. (3) Dehydration Is this a current diagnosis for this admission?: Yes Plan: Resolved (4) Hyponatremia Is this a current diagnosis for this admission?: Yes Plan: Stable - Time Time Spent with patient: 15-24 minutes - Inpatient Certification Medical Necessity: Need for IV Antibiotics
[2017-05-20] MEDS: VANCOMYCIN HCL 1,250 MG in DEXTROSE 5%-WATER 250 ML IV SCH ×4 (03:54→21:28)
[2017-05-20] MEDS: HEPARIN SOD (PORCINE) 5,000 UNIT/ML 1 ML SYRINGE SUBCUT SCH ×3 (05:56→21:28)
[2017-05-20] MEDS: METFORMIN HCL 500 MG TABLET PO SCH ×2 (08:03→17:26)
[2017-05-20] MEDS: FERROUS SULFATE 325 MG TABLET PO SCH ×2 (08:05→17:27)
[2017-05-20] MEDS: METOPROLOL SUCCINATE 50 MG TAB.SR.24H PO SCH (10:30)
[2017-05-20] MEDS: DULOXETINE HCL 30 MG CAPSULE.DR PO SCH ×2 (10:30→21:28)
[2017-05-20] MEDS: DOCUSATE SODIUM 100 MG CAPSULE PO SCH ×2 (10:30→17:27)
[2017-05-20] MEDS: GABAPENTIN 300 MG CAPSULE PO SCH ×2 (10:30→21:28)
[2017-05-20] MEDS: LIDOCAINE 5% (700 MG) TRANSDERMAL ADH..PATCH TP SCH (10:31)
[2017-05-20] MEDS: NORMAL SALINE 10 ML SDV (AFTER EACH USE) IV PRN ×2 (10:32→17:27)
[2017-05-20] MEDS: NORMAL SALINE 10 ML SDV (SCHEDULED) IV SCH ×2 (10:32→21:28)
--- NOTE | 2017-05-20 12:59 | PDOC PROGRESS REPORT ---
Subjective Progress Note for:: 05/20/17 Subjective:: Denies any complaints today. Reason For Visit: SEPSIS ENDOCARDITIS, POLYARTHRITIS, IV DRUG ABUSE Physical Exam Vital Signs: Temp Pulse Resp BP Pulse Ox 97.9 F 108 H 16 122/69 98 05/20/17 10:58 05/20/17 10:58 05/20/17 10:58 05/20/17 10:58 05/20/17 10:58 Pulse Oximeter Continuous Start: 05/05/17 11: 26 Freq: RTQ4 Status: Complete Document 05/11/17 08:00 JDR (Rec: 05/11/17 11:14 JDR [email or web address]) Pulse Oximetry Assessment Oxygen Saturation (92-100) 98 Oxygen Flow Rate (L/min) 2 Oxygen Delivery Method Nasal Cannula Equipment Usage Equipment in Use Continuous SpO2 Machine # 8 Intake & Output 05/19/17 05/20/17 05/21/17 06:59 06:59 06:59 Intake Total 1500 2000 Output Total 1350 4625 Balance 150 -2625 Weight 68.6 kg General appearance: PRESENT: no acute distress Eye exam: PRESENT: conjunctiva pink. ABSENT: scleral icterus Mouth exam: PRESENT: moist, tongue midline Neck exam: ABSENT: JVD Respiratory exam: PRESENT: clear to auscultation antonio. ABSENT: rales, rhonchi, wheezes Cardiovascular exam: PRESENT: RRR. ABSENT: diastolic murmur, rubs, systolic murmur GI/Abdominal exam: PRESENT: normal bowel sounds, soft. ABSENT: distended, guarding, mass, organolmegaly, rebound, tenderness Extremities exam: ABSENT: calf tenderness, clubbing, pedal edema Psychiatric exam: PRESENT: appropriate affect Skin exam: PRESENT: dry, intact, warm. ABSENT: cyanosis, rash Results Laboratory Results: 05/19/17 04:54 05/19/17 04:54 05/14/17 14:08 Blood Blood Culture - Final NO GROWTH IN 5 DAYS 05/14/17 10:26 Blood Blood Culture - Final NO GROWTH IN 5 DAYS Impressions: Head CT 05/05/17 00:00 IMPRESSION: Limited negative study EVIDENCE OF ACUTE STROKE: NO. Lumbar Spine X-Ray 05/05/17 00:00 IMPRESSION: No acute fracture or malalignment. Multilevel disc space loss of height with anterior osteophyte formation Hip X-Ray 05/05/17 03:18 IMPRESSION: No acute findings. 2010 [employer]- All Rights Reserved Wrist X-Ray 05/05/17 03:18 IMPRESSION: No acute findings. Limited scaphoid views. 2010 [employer]- All Rights Reserved Chest X-Ray 05/05/17 03:23 IMPRESSION: No acute cardiopulmonary findings. 2010 [employer]- All Rights Reserved Guidance Fluoroscopy 05/12/17 00:00 IMPRESSION: SUCCESSFUL PLACEMENT OF A 5 FR DUAL LUMEN 35 CM PICC IN THE RIGHT BASILIC VEIN. Interventional Vascular Procedure 05/12/17 00:00 IMPRESSION: SUCCESSFUL PLACEMENT OF A 5 FR DUAL LUMEN 35 CM PICC IN THE RIGHT BASILIC VEIN. PICC Line Insertion 05/12/17 00:00 IMPRESSION: SUCCESSFUL PLACEMENT OF A 5 FR DUAL LUMEN 35 CM PICC IN THE RIGHT BASILIC VEIN. Assessment & Plan - Diagnosis (1) Acute metabolic encephalopathy Is this a current diagnosis for this admission?: Yes Plan: Resolved. Most likely secondary to substance abuse. (2) Bacteremia Is this a current diagnosis for this admission?: Yes Plan: Patient has endocarditis involving the tricuspid valve. Will need a total of 6 weeks of IV antibiotics from the first negative blood culture. The May 14 cultures are negative so far. (3) Dehydration Is this a current diagnosis for this admission?: Yes Plan: Resolved (4) Hyponatremia Is this a current diagnosis for this admission?: Yes Plan: Stable - Time Time Spent with patient: 25-34 minutes - Inpatient Certification Medical Necessity: Need for IV Antibiotics
[2017-05-21] MEDS: VANCOMYCIN HCL 1,250 MG in DEXTROSE 5%-WATER 250 ML IV SCH ×4 (03:57→20:25)
[2017-05-21] MEDS: HEPARIN SOD (PORCINE) 5,000 UNIT/ML 1 ML SYRINGE SUBCUT SCH ×3 (05:56→22:20)
[2017-05-21] MEDS: FERROUS SULFATE 325 MG TABLET PO SCH ×2 (08:16→17:14)
[2017-05-21] MEDS: METFORMIN HCL 500 MG TABLET PO SCH ×2 (08:16→15:18)
[2017-05-21] MEDS: DULOXETINE HCL 30 MG CAPSULE.DR PO SCH ×2 (10:15→22:20)
[2017-05-21] MEDS: GABAPENTIN 300 MG CAPSULE PO SCH ×2 (10:15→22:20)
[2017-05-21] MEDS: DOCUSATE SODIUM 100 MG CAPSULE PO SCH ×2 (10:15→17:14)
[2017-05-21] MEDS: METOPROLOL SUCCINATE 50 MG TAB.SR.24H PO SCH (10:15)
[2017-05-21] MEDS: LIDOCAINE 5% (700 MG) TRANSDERMAL ADH..PATCH TP SCH (10:17)
[2017-05-21] MEDS: NORMAL SALINE 10 ML SDV (SCHEDULED) IV SCH ×2 (10:17→22:20)
--- NOTE | 2017-05-21 18:23 | PROGRESS NOTE E ---
Progress Note NAME: SUSHIL JARA : 1970 AGE: 46Y DATE: 05/21/2017 ROOM: 414 SUBJECTIVE: The patient is in the hospital because of endocarditis with methicillin-sensitive Staph aureus. The patient is doing well except does complain of some pain in his bilateral legs. He also reports having some trouble sleeping. OBJECTIVE: VITAL SIGNS: Stable. CHEST: Clear to auscultation. CARDIAC: Regular rate and rhythm. No murmurs, rubs or gallops appreciated. ABDOMEN: Positive bowel sounds. Soft. Nontender. No organomegaly. EXTREMITIES: No edema NEUROLOGIC: Patient was alert and oriented x3. ASSESSMENT/PLAN: 1. Endocarditis. We will continue with the IV vancomycin. The patient's blood cultures from May 14 are still negative. That will be our start date for the total of 6 weeks of IV antibiotics. 2. Leg pain. The patient has some neuropathic type pain in his legs as well as some insomnia, and we will start the patient on Elavil. 3. Tobacco abuse. The patient is encouraged to quit smoking. DICTATING PHYSICIAN: Tash MOCTEZUMA M.D. [id number] PHY#: [id number] ID: [id number] JOB#: [id number] ACCT: [id number] cc: >
[2017-05-21] MEDS: AMITRIPTYLINE HCL 50 MG TABLET PO SCH (22:20)
[2017-05-22] MEDS: VANCOMYCIN HCL 1,250 MG in DEXTROSE 5%-WATER 250 ML IV SCH ×4 (03:32→20:20)
[2017-05-22] MEDS: HEPARIN SOD (PORCINE) 5,000 UNIT/ML 1 ML SYRINGE SUBCUT SCH ×3 (05:37→21:45)
[2017-05-22] MEDS: METFORMIN HCL 500 MG TABLET PO SCH ×2 (08:07→15:27)
[2017-05-22] MEDS: FERROUS SULFATE 325 MG TABLET PO SCH ×2 (08:08→17:52)
[2017-05-22] MEDS: DOCUSATE SODIUM 100 MG CAPSULE PO SCH ×2 (09:35→17:52)
[2017-05-22] MEDS: DULOXETINE HCL 30 MG CAPSULE.DR PO SCH ×2 (09:35→21:44)
[2017-05-22] MEDS: NORMAL SALINE 10 ML SDV (SCHEDULED) IV SCH ×2 (09:36→21:45)
[2017-05-22] MEDS: GABAPENTIN 300 MG CAPSULE PO SCH ×2 (09:36→21:45)
[2017-05-22] MEDS: LIDOCAINE 5% (700 MG) TRANSDERMAL ADH..PATCH TP SCH (09:37)
[2017-05-22] MEDS: METOPROLOL SUCCINATE 50 MG TAB.SR.24H PO SCH (10:44)
--- NOTE | 2017-05-22 11:59 | PDOC PROGRESS REPORT ---
Subjective Progress Note for:: 05/22/17 Subjective:: Denies any complaints today. This gentleman presented with diffuse body aches and fever. 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 Patient had a transesophageal echo done at [place] which confirms this. The patient is currently on vancomycin. He has had multiple positive blood cultures and blood cultures from May 14 are the first set that is negative. He will need a total of 6 weeks of IV antibiotics. Earlier during this hospitalization it was discussed with infectious disease who recommended either Ancef, daptomycin or continuous nafcillin depending on his expense. He does have a history of IV drug abuse and has a PICC line in place. Reason For Visit: SEPSIS ENDOCARDITIS, POLYARTHRITIS, IV DRUG ABUSE Physical Exam Vital Signs: Temp Pulse Resp BP Pulse Ox 98.6 F 113 H 20 100/54 L 98 05/22/17 07:23 05/22/17 07:23 05/22/17 07:23 05/22/17 07:23 05/22/17 07:23 Pulse Oximeter Continuous Start: 05/05/17 11: 26 Freq: RTQ4 Status: Complete Document 05/11/17 08:00 JDR (Rec: 05/11/17 11:14 JDR [email or web address]) Pulse Oximetry Assessment Oxygen Saturation (92-100) 98 Oxygen Flow Rate (L/min) 2 Oxygen Delivery Method Nasal Cannula Equipment Usage Equipment in Use Continuous SpO2 Machine # 8 Intake & Output 05/21/17 05/22/17 05/23/17 06:59 06:59 06:59 Intake Total 2432 1146 Output Total 2600 2600 Balance -168 -1454 Weight 69.6 kg 68.8 kg General appearance: PRESENT: no acute distress Eye exam: PRESENT: conjunctiva pink. ABSENT: scleral icterus Mouth exam: PRESENT: moist, tongue midline Neck exam: ABSENT: JVD Respiratory exam: PRESENT: clear to auscultation antonio. ABSENT: rales, rhonchi, wheezes Cardiovascular exam: PRESENT: RRR. ABSENT: diastolic murmur, rubs, systolic murmur GI/Abdominal exam: PRESENT: normal bowel sounds, soft. ABSENT: distended, guarding, mass, organolmegaly, rebound, tenderness Extremities exam: ABSENT: calf tenderness, clubbing, pedal edema Neurological exam: PRESENT: alert, awake, oriented to person, oriented to place , oriented to time, oriented to situation, CN II-XII grossly intact. ABSENT: motor sensory deficit Psychiatric exam: PRESENT: appropriate affect Skin exam: PRESENT: dry, intact, warm. ABSENT: cyanosis, rash Results Laboratory Results: 05/19/17 04:54 05/19/17 04:54 Impressions: Head CT 05/05/17 00:00 IMPRESSION: Limited negative study EVIDENCE OF ACUTE STROKE: NO. Lumbar Spine X-Ray 05/05/17 00:00 IMPRESSION: No acute fracture or malalignment. Multilevel disc space loss of height with anterior osteophyte formation Hip X-Ray 05/05/17 03:18 IMPRESSION: No acute findings. 2010 [employer]- All Rights Reserved Wrist X-Ray 05/05/17 03:18 IMPRESSION: No acute findings. Limited scaphoid views. 2010 [employer]- All Rights Reserved Chest X-Ray 05/05/17 03:23 IMPRESSION: No acute cardiopulmonary findings. 2010 [employer]- All Rights Reserved Guidance Fluoroscopy 05/12/17 00:00 IMPRESSION: SUCCESSFUL PLACEMENT OF A 5 FR DUAL LUMEN 35 CM PICC IN THE RIGHT BASILIC VEIN. Interventional Vascular Procedure 05/12/17 00:00 IMPRESSION: SUCCESSFUL PLACEMENT OF A 5 FR DUAL LUMEN 35 CM PICC IN THE RIGHT BASILIC VEIN. PICC Line Insertion 05/12/17 00:00 IMPRESSION: SUCCESSFUL PLACEMENT OF A 5 FR DUAL LUMEN 35 CM PICC IN THE RIGHT BASILIC VEIN. Assessment & Plan - Diagnosis (1) Acute metabolic encephalopathy Is this a current diagnosis for this admission?: Yes Plan: Resolved. Most likely secondary to substance abuse. (2) Bacteremia Is this a current diagnosis for this admission?: Yes Plan: Patient has endocarditis involving the tricuspid valve. Will need a total of 6 weeks of IV antibiotics from the first negative blood culture. The patient's first negative cultures May 14. His last day of antibiotics would be June 28. He currently has a PICC line in place. Infectious disease was consulted from [place] during his hospitalization and they recommended continue with his current antibiotics or Ancef, daptomycin, or continuous nafcillin. He has remained on vancomycin. Given his history of drug abuse is not clear whether he would be safe to go home with a PICC line. (3) Dehydration Is this a current diagnosis for this admission?: Yes Plan: Resolved (4) Hyponatremia Is this a current diagnosis for this admission?: Yes Plan: Stable - Time Time Spent with patient: 15-24 minutes - Inpatient Certification Medical Necessity: Need for IV Antibiotics
[2017-05-22 17:41] LABS: AMORPHOUS SEDIMENT,URINE TRACE /HPF; APPEARANCE,URINE CLOUDY; BILIRUBIN,URINE NEGATIVE (NEGATIVE); COLOR,URINE YELLOW; GLUCOSE, URINE 150 mg/dL (NEGATIVE); KETONES,URINE NEGATIVE (NEGATIVE); LEUKOCYTE ESTERASE,URINE NEGATIVE (NEGATIVE); NITRITE,URINE NEGATIVE (NEGATIVE); PROTEIN,URINE NEGATIVE (NEGATIVE); URINE SPECIFIC GRAVITY 1.014
[2017-05-22] MEDS: NORMAL SALINE 10 ML SDV (AFTER EACH USE) IV PRN (21:45)
[2017-05-22] MEDS: AMITRIPTYLINE HCL 50 MG TABLET PO SCH (21:45)
[2017-05-23] MEDS: VANCOMYCIN HCL 1,250 MG in DEXTROSE 5%-WATER 250 ML IV SCH ×4 (03:17→20:11)
[2017-05-23] MEDS: HEPARIN SOD (PORCINE) 5,000 UNIT/ML 1 ML SYRINGE SUBCUT SCH ×3 (05:27→21:57)
[2017-05-23 05:46] LABS: HEMATOCRIT 26.9 % (37.9-51.0); HEMOGLOBIN 9.2 g/dL (13.5-17.0); MEAN CORPUSCULAR HEMOGLOBIN 29.7 pg (27.0-33.4); MEAN CORPUSCULAR VOLUME 87 fl (80-97); PLATELET COUNT 507 10^3/uL (150-450); RED BLOOD COUNT 3.08 10^6/uL (4.35-5.55); RED CELL DISTRIBUTION WIDTH 16.1 % (11.5-14.0)
[2017-05-23 05:55] LABS: ANION GAP 10 (5-19); BLOOD UREA NITROGEN 11 mg/dL (7-20); CALCIUM 8.4 mg/dL (8.4-10.2); CARBON DIOXIDE 28 mmol/L (22-30); CHLORIDE 89 mmol/L (98-107); GLUCOSE 256 mg/dL (75-110); POTASSIUM 4.3 mmol/L (3.6-5.0); SODIUM 126.8 mmol/L (137-145)
[2017-05-23 06:37] LABS: ABSOLUTE LYMPHOCYTES# (MANUAL) 3.8 10^3/uL (0.5-4.7); ANISOCYTOSIS 1+; BASOPHILS % (MANUAL) 0 % (0-2); EOSINOPHILS % (MANUAL) 1 % (0-6); LYMPHOCYTES % (MANUAL) 15 % (13-45); MONOCYTES % (MANUAL) 4 % (3-13); PLATELET COMMENT ADEQUATE; POLYCHROMASIA SLIGHT; SEGMENTED NEUTROPHILS % (MAN) 80 % (42-78); STOMATOCYTES SLIGHT; TOTAL CELLS COUNTED 100; TOXIC GRANULATION SLIGHT
[2017-05-23] MEDS: METFORMIN HCL 500 MG TABLET PO SCH ×2 (07:25→16:12)
[2017-05-23] MEDS: FERROUS SULFATE 325 MG TABLET PO SCH ×2 (08:23→17:27)
[2017-05-23] MEDS: METOPROLOL SUCCINATE 50 MG TAB.SR.24H PO SCH (10:18)
[2017-05-23] MEDS: DOCUSATE SODIUM 100 MG CAPSULE PO SCH ×2 (10:18→17:26)
[2017-05-23] MEDS: DULOXETINE HCL 30 MG CAPSULE.DR PO SCH ×2 (10:18→21:57)
[2017-05-23] MEDS: GABAPENTIN 300 MG CAPSULE PO SCH ×2 (10:18→21:57)
[2017-05-23] MEDS: NORMAL SALINE 10 ML SDV (SCHEDULED) IV SCH ×2 (10:22→21:57)
[2017-05-23] MEDS: NORMAL SALINE 10 ML SDV (AFTER EACH USE) IV PRN ×3 (10:22→21:58)
[2017-05-23] MEDS: LIDOCAINE 5% (700 MG) TRANSDERMAL ADH..PATCH TP SCH (10:22)
--- NOTE | 2017-05-23 18:20 | PDOC PROGRESS REPORT ---
Subjective Progress Note for:: 05/23/17 Subjective:: No overnight events. Getting "cabin fever". Denies fevers, chills, CP, SOB, abdominal pain, NV. PO intake good. No complaints. Reason For Visit: SEPSIS ENDOCARDITIS, POLYARTHRITIS, IV DRUG ABUSE Physical Exam Vital Signs: Temp Pulse Resp BP Pulse Ox 98.9 F 112 H 20 100/49 L 99 05/23/17 15:36 05/23/17 15:36 05/23/17 15:36 05/23/17 15:36 05/23/17 15:36 Pulse Oximeter Continuous Start: 05/05/17 11: 26 Freq: RTQ4 Status: Complete Document 05/11/17 08:00 JDR (Rec: 05/11/17 11:14 JDR [email or web address]) Pulse Oximetry Assessment Oxygen Saturation (92-100) 98 Oxygen Flow Rate (L/min) 2 Oxygen Delivery Method Nasal Cannula Equipment Usage Equipment in Use Continuous SpO2 Machine # 8 Intake & Output 05/22/17 05/23/17 05/24/17 06:59 06:59 06:59 Intake Total 1146 2768 Output Total 2600 2460 Balance -1454 308 Weight 68.8 kg 69.3 kg General appearance: PRESENT: no acute distress, thin Head exam: PRESENT: atraumatic, normocephalic Teeth exam: PRESENT: poor dentation Neck exam: PRESENT: full ROM Respiratory exam: PRESENT: clear to auscultation antonio Cardiovascular exam: PRESENT: diastolic murmur, RRR, systolic murmur GI/Abdominal exam: PRESENT: soft. ABSENT: tenderness Extremities exam: PRESENT: full ROM Musculoskeletal exam: PRESENT: full ROM Neurological exam: PRESENT: alert, altered, oriented to person, oriented to place, oriented to time, CN II-XII grossly intact Results Laboratory Results: 05/23/17 05:26 05/23/17 05:26 05/23/17 05/23/17 05:26 05:26 WBC 25.0 H RBC 3.08 L Hgb 9.2 L Hct 26.9 L MCV 87 MCH 29.7 MCHC 34.0 RDW 16.1 H Plt Count 507 H Seg Neutrophils % Not Reportable Lymphocytes % Not Reportable Monocytes % Not Reportable Eosinophils % Not Reportable Basophils % Not Reportable Absolute Neutrophils Not Reportable Absolute Lymphocytes Not Reportable Absolute Monocytes Not Reportable Absolute Eosinophils Not Reportable Absolute Basophils Not Reportable Sodium 126.8 L Potassium 4.3 Chloride 89 L Carbon Dioxide 28 Anion Gap 10 BUN 11 Creatinine 0.42 L Est GFR ( Amer) > 60 Est GFR (Non-Af Amer) > 60 Glucose 256 H Calcium 8.4 Urine culture: No growth in 1 day (05/22/17) Blood culture: No growth in 5 days (05/14/17) Impressions: Head CT 05/05/17 00:00 IMPRESSION: Limited negative study EVIDENCE OF ACUTE STROKE: NO. Lumbar Spine X-Ray 05/05/17 00:00 IMPRESSION: No acute fracture or malalignment. Multilevel disc space loss of height with anterior osteophyte formation Hip X-Ray 05/05/17 03:18 IMPRESSION: No acute findings. 2010 [employer]- All Rights Reserved Wrist X-Ray 05/05/17 03:18 IMPRESSION: No acute findings. Limited scaphoid views. 2010 [employer]- All Rights Reserved Chest X-Ray 05/05/17 03:23 IMPRESSION: No acute cardiopulmonary findings. 2010 [employer]- All Rights Reserved Guidance Fluoroscopy 05/12/17 00:00 IMPRESSION: SUCCESSFUL PLACEMENT OF A 5 FR DUAL LUMEN 35 CM PICC IN THE RIGHT BASILIC VEIN. Interventional Vascular Procedure 05/12/17 00:00 IMPRESSION: SUCCESSFUL PLACEMENT OF A 5 FR DUAL LUMEN 35 CM PICC IN THE RIGHT BASILIC VEIN. PICC Line Insertion 05/12/17 00:00 IMPRESSION: SUCCESSFUL PLACEMENT OF A 5 FR DUAL LUMEN 35 CM PICC IN THE RIGHT BASILIC VEIN. Assessment & Plan - Diagnosis (1) Acute metabolic encephalopathy Is this a current diagnosis for this admission?: Yes Plan: At presentation, thought to be secondary to drug use. Now resolved. (2) Dehydration Is this a current diagnosis for this admission?: Yes Plan: Resolved. PO intake acceptable (3) Endocarditis of tricuspid valve Is this a current diagnosis for this admission?: Yes Plan: Known endocarditis involving the tricuspid valve secondary to drug use. - Will need a total of 6 weeks of IV antibiotics from the first negative blood culture - 05/14/17 blood cultures NGTD, previously positive for MSSA - Tentative last day of antibiotics: 06/28/17 - Continue Vanc for now. Would be reasonable to switch to Ancef, daptomycin, or continuous nafcillin; case has been discussed with ID at [facility] - PICC In place. Unclear if safe to go home with a PICC line. (4) Hyponatremia Is this a current diagnosis for this admission?: Yes Plan: Chronic, asymptomatic - Time Anticipated discharge: Other - Following completion of IV antibiotics, ~06/28/17
[2017-05-23] MEDS: AMITRIPTYLINE HCL 50 MG TABLET PO SCH (21:57)
[2017-05-24] MEDS: VANCOMYCIN HCL 1,250 MG in DEXTROSE 5%-WATER 250 ML IV SCH ×4 (02:49→20:30)
[2017-05-24] MEDS: HEPARIN SOD (PORCINE) 5,000 UNIT/ML 1 ML SYRINGE SUBCUT SCH ×3 (05:44→22:33)
[2017-05-24] MEDS: METFORMIN HCL 500 MG TABLET PO SCH ×2 (08:15→16:18)
[2017-05-24] MEDS: FERROUS SULFATE 325 MG TABLET PO SCH ×2 (08:15→18:10)
[2017-05-24] MEDS: DULOXETINE HCL 30 MG CAPSULE.DR PO SCH ×2 (10:14→22:33)
[2017-05-24] MEDS: DOCUSATE SODIUM 100 MG CAPSULE PO SCH ×2 (10:15→18:10)
[2017-05-24] MEDS: METOPROLOL SUCCINATE 50 MG TAB.SR.24H PO SCH (10:15)
[2017-05-24] MEDS: GABAPENTIN 300 MG CAPSULE PO SCH ×2 (10:15→22:33)
[2017-05-24] MEDS: NORMAL SALINE 10 ML SDV (SCHEDULED) IV SCH ×2 (10:16→22:34)
[2017-05-24] MEDS: NORMAL SALINE 10 ML SDV (AFTER EACH USE) IV PRN ×3 (10:16→22:34)
[2017-05-24] MEDS: LIDOCAINE 5% (700 MG) TRANSDERMAL ADH..PATCH TP SCH (10:17)
--- NOTE | 2017-05-24 15:20 | PDOC PROGRESS REPORT ---
Subjective Progress Note for:: 05/24/17 Subjective:: No overnight events. Eating breakfast at time of evaluation. Denies fevers, chills, CP, SOB, abdominal pain, NV. PO intake good. No complaints. States that he is ready to make changes in his life and that he has "gotten a 2nd chance". Reason For Visit: SEPSIS ENDOCARDITIS, POLYARTHRITIS, IV DRUG ABUSE Physical Exam Vital Signs: Temp Pulse Resp BP Pulse Ox 99.1 F 110 H 20 109/59 L 97 05/24/17 11:20 05/24/17 11:20 05/24/17 11:20 05/24/17 11:20 05/24/17 11:20 Pulse Oximeter Continuous Start: 05/05/17 11: 26 Freq: RTQ4 Status: Complete Document 05/11/17 08:00 JDR (Rec: 05/11/17 11:14 JDR [email or web address]) Pulse Oximetry Assessment Oxygen Saturation (92-100) 98 Oxygen Flow Rate (L/min) 2 Oxygen Delivery Method Nasal Cannula Equipment Usage Equipment in Use Continuous SpO2 Machine # 8 Intake & Output 05/23/17 05/24/17 05/25/17 06:59 06:59 06:59 Intake Total 2768 3245 Output Total 2460 3525 Balance 308 -280 Weight 69.3 kg 69.1 kg General appearance: PRESENT: no acute distress, cooperative, thin Head exam: PRESENT: atraumatic, normocephalic Mouth exam: PRESENT: moist Respiratory exam: PRESENT: clear to auscultation antonio. ABSENT: unlabored, wheezes Cardiovascular exam: PRESENT: diastolic murmur, RRR, systolic murmur GI/Abdominal exam: ABSENT: tenderness Extremities exam: PRESENT: full ROM. ABSENT: pedal edema Neurological exam: PRESENT: alert, awake, CN II-XII grossly intact Psychiatric exam: PRESENT: appropriate affect Skin exam: PRESENT: dry. ABSENT: rash Results Laboratory Results: 05/23/17 05:26 05/23/17 05:26 05/22/17 17:10 Clean Catch Midstream Urine Culture - Final NO GROWTH 2 DAYS Impressions: Head CT 05/05/17 00:00 IMPRESSION: Limited negative study EVIDENCE OF ACUTE STROKE: NO. Lumbar Spine X-Ray 05/05/17 00:00 IMPRESSION: No acute fracture or malalignment. Multilevel disc space loss of height with anterior osteophyte formation Hip X-Ray 05/05/17 03:18 IMPRESSION: No acute findings. 2010 [employer]- All Rights Reserved Wrist X-Ray 05/05/17 03:18 IMPRESSION: No acute findings. Limited scaphoid views. 2010 [employer]- All Rights Reserved Chest X-Ray 05/05/17 03:23 IMPRESSION: No acute cardiopulmonary findings. 2010 [employer]- All Rights Reserved Guidance Fluoroscopy 05/12/17 00:00 IMPRESSION: SUCCESSFUL PLACEMENT OF A 5 FR DUAL LUMEN 35 CM PICC IN THE RIGHT BASILIC VEIN. Interventional Vascular Procedure 05/12/17 00:00 IMPRESSION: SUCCESSFUL PLACEMENT OF A 5 FR DUAL LUMEN 35 CM PICC IN THE RIGHT BASILIC VEIN. PICC Line Insertion 05/12/17 00:00 IMPRESSION: SUCCESSFUL PLACEMENT OF A 5 FR DUAL LUMEN 35 CM PICC IN THE RIGHT BASILIC VEIN. Assessment & Plan - Diagnosis (1) Endocarditis of tricuspid valve Is this a current diagnosis for this admission?: Yes Plan: Known endocarditis involving the tricuspid valve secondary to drug use. - Will need a total of 6 weeks of IV antibiotics from the first negative blood culture - 05/14/17 blood cultures NGTD, previously positive for MSSA - Tentative last day of antibiotics: 06/28/17 - Continue Vanc for now. Would be reasonable to switch to Ancef, daptomycin, or continuous nafcillin; case has been discussed with ID at [facility] - PICC In place - Discussed with social work 05/24/17. Would be possible to discharge patient to home but would have to return to every day for hospital for IV infusion. Also would need to be on IV antibiotic that can be scheduled daily (nafcillin would be good option) - Pt checking to see feasibility. Will keep admitted to hospital for now. (2) Acute metabolic encephalopathy Is this a current diagnosis for this admission?: Yes Plan: At presentation, thought to be secondary to drug use. Now resolved. (3) Dehydration Is this a current diagnosis for this admission?: Yes Plan: Resolved. PO intake acceptable (4) Hyponatremia Is this a current diagnosis for this admission?: Yes Plan: Chronic, asymptomatic - Time Time Spent with patient: 15-24 minutes
[2017-05-24] MEDS: AMITRIPTYLINE HCL 50 MG TABLET PO SCH (22:33)
[2017-05-25] MEDS: VANCOMYCIN HCL 1,250 MG in DEXTROSE 5%-WATER 250 ML IV SCH ×4 (03:46→20:30)
[2017-05-25] MEDS: HEPARIN SOD (PORCINE) 5,000 UNIT/ML 1 ML SYRINGE SUBCUT SCH ×3 (05:23→22:33)
[2017-05-25] MEDS: METFORMIN HCL 500 MG TABLET PO SCH ×2 (07:37→15:41)
[2017-05-25 07:50] LABS: HEMOGLOBIN 9.1 g/dL (13.5-17.0); MEAN CORPUSCULAR HEMOGLOBIN 29.1 pg (27.0-33.4); MEAN CORPUSCULAR HGB CONC 33.6 g/dL (32.0-36.0); MEAN CORPUSCULAR VOLUME 87 fl (80-97); PLATELET COUNT 616 10^3/uL (150-450); RED BLOOD COUNT 3.11 10^6/uL (4.35-5.55); RED CELL DISTRIBUTION WIDTH 15.7 % (11.5-14.0)
[2017-05-25 07:53] LABS: ANION GAP 9 (5-19); BLOOD UREA NITROGEN 13 mg/dL (7-20); CALCIUM 8.8 mg/dL (8.4-10.2); CARBON DIOXIDE 28 mmol/L (22-30); CHLORIDE 91 mmol/L (98-107); GLUCOSE 162 mg/dL (75-110); POTASSIUM 4.7 mmol/L (3.6-5.0); SODIUM 127.6 mmol/L (137-145)
[2017-05-25 08:11] LABS: ABSOLUTE LYMPHOCYTES# (MANUAL) 4.2 10^3/uL (0.5-4.7); ABSOLUTE MONOCYTES # (MANUAL) 1.6 10^3/uL (0.1-1.4); ABSOLUTE NEUTROPHILS# (MANUAL) 20.3 10^3/uL (1.7-8.2); ANISOCYTOSIS SLIGHT; BASOPHILS % (MANUAL) 0 % (0-2); EOSINOPHILS % (MANUAL) 0 % (0-6); LYMPHOCYTES % (MANUAL) 16 % (13-45); MONOCYTES % (MANUAL) 6 % (3-13); PLATELET COMMENT INCREASED; POLYCHROMASIA SLIGHT; ROULEAUX 1+; SEGMENTED NEUTROPHILS % (MAN) 78 % (42-78); TOTAL CELLS COUNTED 100; TOXIC GRANULATION 2+
[2017-05-25] MEDS: METOPROLOL SUCCINATE 50 MG TAB.SR.24H PO SCH (09:39)
[2017-05-25] MEDS: FERROUS SULFATE 325 MG TABLET PO SCH ×2 (09:39→17:49)
[2017-05-25] MEDS: DOCUSATE SODIUM 100 MG CAPSULE PO SCH ×2 (09:40→17:49)
[2017-05-25] MEDS: GABAPENTIN 300 MG CAPSULE PO SCH ×2 (09:40→22:33)
[2017-05-25] MEDS: DULOXETINE HCL 30 MG CAPSULE.DR PO SCH ×2 (09:40→22:33)
[2017-05-25] MEDS: NORMAL SALINE 10 ML SDV (SCHEDULED) IV SCH ×2 (09:41→22:33)
[2017-05-25] MEDS: NORMAL SALINE 10 ML SDV (AFTER EACH USE) IV PRN ×3 (09:41→22:33)
[2017-05-25] MEDS: LIDOCAINE 5% (700 MG) TRANSDERMAL ADH..PATCH TP SCH (09:43)
[2017-05-25] MEDS: ACETAMINOPHEN 325 MG TABLET PO PRN ×2 (15:57→20:30)
--- NOTE | 2017-05-25 18:54 | PDOC PROGRESS REPORT ---
Subjective Progress Note for:: 05/25/17 Subjective:: No overnight events. Resting in bed at time of evaluation. Denies fevers, chills , CP, SOB, abdominal pain, NV. Specifically denies urinary complaints, pain/ erythema at PICC site, new cough/respiratory symptoms. Reason For Visit: SEPSIS ENDOCARDITIS, POLYARTHRITIS, IV DRUG ABUSE Physical Exam Vital Signs: Temp Pulse Resp BP Pulse Ox 100.1 F 110 H 12 111/65 100 05/25/17 16:00 05/25/17 16:00 05/25/17 16:00 05/25/17 16:00 05/25/17 16:00 Pulse Oximeter Continuous Start: 05/05/17 11: 26 Freq: RTQ4 Status: Complete Document 05/11/17 08:00 JDR (Rec: 05/11/17 11:14 JDR [email or web address]) Pulse Oximetry Assessment Oxygen Saturation (92-100) 98 Oxygen Flow Rate (L/min) 2 Oxygen Delivery Method Nasal Cannula Equipment Usage Equipment in Use Continuous SpO2 Machine # 8 Intake & Output 05/24/17 05/25/17 05/26/17 06:59 06:59 06:59 Intake Total 3245 3104 1299 Output Total 3525 3675 1900 Balance -280 -571 -601 Weight 69.1 kg 68 kg General appearance: PRESENT: no acute distress, thin, other Head exam: PRESENT: atraumatic Mouth exam: PRESENT: moist Neck exam: ABSENT: JVD Respiratory exam: PRESENT: unlabored. ABSENT: wheezes Cardiovascular exam: PRESENT: diastolic murmur, RRR, systolic murmur GI/Abdominal exam: PRESENT: soft. ABSENT: tenderness Extremities exam: ABSENT: pedal edema Neurological exam: PRESENT: alert, awake, CN II-XII grossly intact Psychiatric exam: PRESENT: appropriate affect Skin exam: ABSENT: rash Results Laboratory Results: 05/25/17 06:18 05/25/17 06:18 05/25/17 05/25/17 06:18 06:18 WBC 26.0 H RBC 3.11 L Hgb 9.1 L Hct 27.0 L MCV 87 MCH 29.1 MCHC 33.6 RDW 15.7 H Plt Count 616 H Seg Neutrophils % Not Reportable Lymphocytes % Not Reportable Monocytes % Not Reportable Eosinophils % Not Reportable Basophils % Not Reportable Absolute Neutrophils Not Reportable Absolute Lymphocytes Not Reportable Absolute Monocytes Not Reportable Absolute Eosinophils Not Reportable Absolute Basophils Not Reportable Sodium 127.6 L Potassium 4.7 Chloride 91 L Carbon Dioxide 28 Anion Gap 9 BUN 13 Creatinine 0.48 L Est GFR ( Amer) > 60 Est GFR (Non-Af Amer) > 60 Glucose 162 H Calcium 8.8 Impressions: Head CT 05/05/17 00:00 IMPRESSION: Limited negative study EVIDENCE OF ACUTE STROKE: NO. Lumbar Spine X-Ray 05/05/17 00:00 IMPRESSION: No acute fracture or malalignment. Multilevel disc space loss of height with anterior osteophyte formation Hip X-Ray 05/05/17 03:18 IMPRESSION: No acute findings. 2010 [employer]- All Rights Reserved Wrist X-Ray 05/05/17 03:18 IMPRESSION: No acute findings. Limited scaphoid views. 2010 [employer]- All Rights Reserved Chest X-Ray 05/05/17 03:23 IMPRESSION: No acute cardiopulmonary findings. 2010 [employer]- All Rights Reserved Guidance Fluoroscopy 05/12/17 00:00 IMPRESSION: SUCCESSFUL PLACEMENT OF A 5 FR DUAL LUMEN 35 CM PICC IN THE RIGHT BASILIC VEIN. Interventional Vascular Procedure 05/12/17 00:00 IMPRESSION: SUCCESSFUL PLACEMENT OF A 5 FR DUAL LUMEN 35 CM PICC IN THE RIGHT BASILIC VEIN. PICC Line Insertion 05/12/17 00:00 IMPRESSION: SUCCESSFUL PLACEMENT OF A 5 FR DUAL LUMEN 35 CM PICC IN THE RIGHT BASILIC VEIN. Assessment & Plan - Diagnosis (1) Endocarditis of tricuspid valve Is this a current diagnosis for this admission?: Yes Plan: Known endocarditis involving the tricuspid valve secondary to drug use. - Will need a total of 6 weeks of IV antibiotics from the first negative blood culture - 05/14/17 blood cultures NGTD, previously positive for MSSA, Tentative last day of antibiotics: 06/28/17 - Given continued elevated WBC, repeated Blood cultures on 05/24, results pending , noted to have low grade temp on 05/25 - Continue Vanc for now. Would be reasonable to switch to Ancef, daptomycin, or continuous nafcillin; case has been discussed with ID at [facility] - PICC In place - Discussed with social work 05/24/17. Would be possible to discharge patient to home but would have to return to every day for hospital for IV infusion. Also would need to be on IV antibiotic that can be scheduled daily (nafcillin would be good option) - Pt checking to see feasibility and safety. Will keep admitted to hospital for now. (2) Hyponatremia Is this a current diagnosis for this admission?: Yes Plan: Chronic, asymptomatic (3) Acute metabolic encephalopathy Is this a current diagnosis for this admission?: Yes Plan: At presentation, thought to be secondary to drug use. Now resolved. (4) Dehydration Is this a current diagnosis for this admission?: Yes - Time Time Spent with patient: Less than 15 minutes
[2017-05-25] MEDS: AMITRIPTYLINE HCL 50 MG TABLET PO SCH (22:33)
[2017-05-26] MEDS: VANCOMYCIN HCL 1,250 MG in DEXTROSE 5%-WATER 250 ML IV SCH ×3 (02:40→15:34)
[2017-05-26] MEDS: HEPARIN SOD (PORCINE) 5,000 UNIT/ML 1 ML SYRINGE SUBCUT SCH ×2 (05:47→14:03)
[2017-05-26 05:59] LABS: HEMATOCRIT 27.6 % (37.9-51.0); HEMOGLOBIN 9.2 g/dL (13.5-17.0); MEAN CORPUSCULAR HEMOGLOBIN 28.8 pg (27.0-33.4); MEAN CORPUSCULAR HGB CONC 33.4 g/dL (32.0-36.0); MEAN CORPUSCULAR VOLUME 86 fl (80-97); PLATELET COUNT 602 10^3/uL (150-450); RED CELL DISTRIBUTION WIDTH 15.8 % (11.5-14.0); WHITE BLOOD COUNT 25.2 10^3/uL (4.0-10.5)
[2017-05-26 06:10] LABS: ANION GAP 10 (5-19); BLOOD UREA NITROGEN 13 mg/dL (7-20); CALCIUM 8.9 mg/dL (8.4-10.2); CARBON DIOXIDE 28 mmol/L (22-30); CHLORIDE 92 mmol/L (98-107); GLUCOSE 185 mg/dL (75-110); POTASSIUM 4.6 mmol/L (3.6-5.0); SODIUM 130.3 mmol/L (137-145)
[2017-05-26 06:16] LABS: ABSOLUTE LYMPHOCYTES# (MANUAL) 1.8 10^3/uL (0.5-4.7); ABSOLUTE MONOCYTES # (MANUAL) 1.3 10^3/uL (0.1-1.4); ABSOLUTE NEUTROPHILS# (MANUAL) 22.2 10^3/uL (1.7-8.2); BAND NEUTROPHILS % (MANUAL) 2 % (3-5); BASOPHILS % (MANUAL) 0 % (0-2); EOSINOPHILS % (MANUAL) 0 % (0-6); LYMPHOCYTES % (MANUAL) 7 % (13-45); MONOCYTES % (MANUAL) 5 % (3-13); SEGMENTED NEUTROPHILS % (MAN) 86 % (42-78); TOTAL CELLS COUNTED 100
[2017-05-26 06:17] LABS: ANISOCYTOSIS 1+; PLATELET COMMENT INCREASED; TOXIC GRANULATION 1+
[2017-05-26] MEDS: FERROUS SULFATE 325 MG TABLET PO SCH ×2 (08:18→17:28)
[2017-05-26] MEDS: METFORMIN HCL 500 MG TABLET PO SCH ×2 (08:18→15:33)
[2017-05-26] MEDS ORDERED: PHENYLEPHRINE HCL INJ/PF 10 MG/1 ML SDV ONE (08:35)
[2017-05-26] MEDS ORDERED: LIDOCAINE 2% INJ-PF (20 MG/ML) 2 ML AMPUL ONE (08:35)
[2017-05-26] MEDS ORDERED: SUCCINYLCHOLINE CHLORIDE INJ 200 MG/10 ML VIAL ONE (08:35)
[2017-05-26] MEDS ORDERED: ONDANSETRON HCL INJ/PF 4 MG/2 ML SDV ONE (08:35)
[2017-05-26] MEDS ORDERED: OXYCODONE HCL IR 5 MG TABLET PO PRN (09:46)
[2017-05-26] MEDS: DOCUSATE SODIUM 100 MG CAPSULE PO SCH ×2 (10:15→17:27)
[2017-05-26] MEDS: GABAPENTIN 300 MG CAPSULE PO SCH (10:15)
[2017-05-26] MEDS: DULOXETINE HCL 30 MG CAPSULE.DR PO SCH (10:16)
[2017-05-26] MEDS: NORMAL SALINE 10 ML SDV (SCHEDULED) IV SCH (10:17)
[2017-05-26] MEDS: METOPROLOL SUCCINATE 50 MG TAB.SR.24H PO SCH (10:18)
[2017-05-26] MEDS: LIDOCAINE 5% (700 MG) TRANSDERMAL ADH..PATCH TP SCH (10:22)
[2017-05-26] MEDS ORDERED: CLINDAMYCIN PHOSPHATE INJ 300 MG/2 ML SDV IV SCH (11:45)
--- NOTE | 2017-05-26 11:47 | RADIOLOGY REPORT (SQ) ---
EXAM DESCRIPTION: KNEE RIGHT 2 VIEWS COMPLETED DATE/TIME: 05/26/2017 10:47 am REASON FOR STUDY: right knee pain and swelling COMPARISON: Right knee four views 06/09/2014 NUMBER OF VIEWS: Right knee two views TECHNIQUE: AP and lateral radiographic images acquired of the right knee. LIMITATIONS: None. FINDINGS: A large suprapatellar joint effusion is present with air bubbles. This is worrisome for s eptic joint. There are several air bubbles in the medial right upper calf soft tissues worrisome for infection wit h gas-forming organism. These findings were called to Dr. Johnson, hospitalist physician at 1100 hours, 05/26/2017. There is no acute fracture. Moderate osteoarthritis with joint space narrowing at the patellofemoral and medial compartment. IMPRESSION: Large suprapatellar knee joint effusion with air bubbles from septic joint. Soft tissue air bubbles in the medial right upper calf worrisome for infection with gas-forming organism. COMMENT: Pertinent findings on the imaging study reported as a CRITICAL RESULT to GADIEL Cantor at11:00 on 05/26/2017. Category of Critical Result: Septic joint with gas-forming organism TECHNICAL DOCUMENTATION: JOB ID: [id number] [employer]- All Rights Reserved
[2017-05-26 13:34] LABS: CALCIUM PYROPHOSPHATE CRYSTALS NONE OBSERVED; MONOSODIUM URATE CRYSTALS NONE OBSERVED; OTHER CRYSTALS NONE OBSERVED
[2017-05-26 13:53] LABS: FLUID APPEARANCE CLOUDY; FLUID COLOR LIGHT YELLOW; FLUID SOURCE KNEE; FLUID TYPE SYNOVIAL
[2017-05-26 13:55] LABS: FLUID VISCOSITY HIGHLY VISCOUS
[2017-05-26] MEDS: CLINDAMYCIN 600 MG/D5W RTU 600 MG/50 ML RTUPB IV SCH (14:02)
[2017-05-26] MEDS: MORPHINE SULFATE 10 MG/ML INJ IV PRN ×2 (14:03→18:49)
--- NOTE | 2017-05-26 15:35 | PDOC PROGRESS REPORT ---
Subjective Progress Note for:: 05/26/17 Subjective:: 46-year-old male who was admitted with polyarthralgias and diagnosis of endocarditis. He has been treated with IV vancomycin for his endocarditis. According to the patient he has had long-standing history of arthritic pains but yesterday began having significant increased pain in his right knee. There is notable effusion which he states happens occasionally but the pain worsened yesterday requiring more pain medication. Patient denies fever chills or sweats today. Reason For Visit: SEPSIS ENDOCARDITIS, POLYARTHRITIS, IV DRUG ABUSE Physical Exam Vital Signs: Temp Pulse Resp BP Pulse Ox 99.2 F 115 H 20 105/57 L 99 05/26/17 07:16 05/26/17 07:16 05/26/17 07:16 05/26/17 07:16 05/26/17 07:16 Pulse Oximeter Continuous Start: 05/05/17 11: 26 Freq: RTQ4 Status: Complete Document 05/11/17 08:00 JDR (Rec: 05/11/17 11:14 JDR [email or web address]) Pulse Oximetry Assessment Oxygen Saturation (92-100) 98 Oxygen Flow Rate (L/min) 2 Oxygen Delivery Method Nasal Cannula Equipment Usage Equipment in Use Continuous SpO2 Machine # 8 Intake & Output 05/25/17 05/26/17 05/27/17 06:59 06:59 06:59 Intake Total 3104 3599 Output Total 3674 8310 Balance -571 -51 Weight 68 kg 66.2 kg Musculoskeletal exam: PRESENT: other - Right knee: Noted suprapatellar effusion. No erythema. Mild increased warmth compared to left knee. No pain with mid range of motion but pain with terminal flexion and extension. No evidence of open wound. No palpable subcutaneous crepitus. No calf tenderness or streaking erythema appreciated. Compartments soft and compressible no sign of compartment syndrome. Results Laboratory Results: 05/26/17 05:46 05/26/17 05:46 05/26/17 05/26/17 05/26/17 05:46 05:46 12:34 WBC 25.2 H RBC 3.20 L Hgb 9.2 L Hct 27.6 L MCV 86 MCH 28.8 MCHC 33.4 RDW 15.8 H Plt Count 602 H Seg Neutrophils % Not Reportable Lymphocytes % Not Reportable Monocytes % Not Reportable Eosinophils % Not Reportable Basophils % Not Reportable Absolute Neutrophils Not Reportable Absolute Lymphocytes Not Reportable Absolute Monocytes Not Reportable Absolute Eosinophils Not Reportable Absolute Basophils Not Reportable Sodium 130.3 L Potassium 4.6 Chloride 92 L Carbon Dioxide 28 Anion Gap 10 BUN 13 Creatinine 0.48 L Est GFR ( Amer) > 60 Est GFR (Non-Af Amer) > 60 Glucose 185 H Calcium 8.9 Fluid Type SYNOVIAL Fluid Source KNEE Fluid Color LIGHT YELLOW Fluid Appearance CLOUDY Fluid Viscosity HIGHLY VISCOUS Fluid WBC 797348 Fluid RBC 2450 05/26/17 12:34 WBC RBC Hgb Hct MCV MCH MCHC RDW Plt Count Seg Neutrophils % Lymphocytes % Monocytes % Eosinophils % Basophils % Absolute Neutrophils Absolute Lymphocytes Absolute Monocytes Absolute Eosinophils Absolute Basophils Sodium Potassium Chloride Carbon Dioxide Anion Gap BUN Creatinine Est GFR ( Amer) Est GFR (Non-Af Amer) Glucose Calcium Fluid Type SYNOVIAL Fluid Source RIGHT KNEE Fluid Color Fluid Appearance Fluid Viscosity Fluid WBC Fluid RBC Impressions: Head CT 05/05/17 00:00 IMPRESSION: Limited negative study EVIDENCE OF ACUTE STROKE: NO. Lumbar Spine X-Ray 05/05/17 00:00 IMPRESSION: No acute fracture or malalignment. Multilevel disc space loss of height with anterior osteophyte formation Hip X-Ray 05/05/17 03:18 IMPRESSION: No acute findings. 2010 [employer]- All Rights Reserved Wrist X-Ray 05/05/17 03:18 IMPRESSION: No acute findings. Limited scaphoid views. 2010 [employer]- All Rights Reserved Chest X-Ray 05/05/17 03:23 IMPRESSION: No acute cardiopulmonary findings. 2010 [employer]- All Rights Reserved Guidance Fluoroscopy 05/12/17 00:00 IMPRESSION: SUCCESSFUL PLACEMENT OF A 5 FR DUAL LUMEN 35 CM PICC IN THE RIGHT BASILIC VEIN. Interventional Vascular Procedure 05/12/17 00:00 IMPRESSION: SUCCESSFUL PLACEMENT OF A 5 FR DUAL LUMEN 35 CM PICC IN THE RIGHT BASILIC VEIN. PICC Line Insertion 05/12/17 00:00 IMPRESSION: SUCCESSFUL PLACEMENT OF A 5 FR DUAL LUMEN 35 CM PICC IN THE RIGHT BASILIC VEIN. Knee X-Ray 05/26/17 00:00 IMPRESSION: Large suprapatellar knee joint effusion with air bubbles from septic joint. Soft tissue air bubbles in the medial right upper calf worrisome for infection with gas-forming organism. Status: Image reviewed by me - I have reviewed patient's radiographs which demonstrate subcutaneous air throughout the soft tissues and significant knee effusion. Assessment & Plan - Diagnosis (1) Myalgia Is this a current diagnosis for this admission?: No (2) Septic arthritis of knee, right Qualifiers: Septic arthritis organism: due to unspecified organism Qualified Code(s): M00.9 - Pyogenic arthritis, unspecified Is this a current diagnosis for this admission?: Yes Plan: Patient has findings suggesting septic arthritis of the night right knee however his examination is a fairly benign appearing in relation to his radiographic findings. Given the finding of the subcutaneous air I have recommended MRI to evaluate for possible underlying septic emboli or alternative etiology however I do feel septic arthritis is certainly possible. Today I proceeded with a aspiration. Under sterile technique the knee was prepped and 18-gauge needle was inserted through the suprapatellar effusion medially. I obtained cloudy appearing fluid. Fluid was sent for cell count, cultures and crystals. Findings demonstrated WBC count of 400,000 which is indicative of septic arthritis. At this point we will proceed with operative intervention which includes arthroscopic irrigation and debridement of the right knee. Prior to proceeding with operative intervention I would like to obtain the MRI to further evaluate any adjacent etiology for preoperative planning purposes.
--- NOTE | 2017-05-26 17:25 | RADIOLOGY REPORT (SQ) ---
EXAM DESCRIPTION: TIBIA FIBULA RIGHT COMPLETED DATE/TIME: 05/26/2017 5:14 pm REASON FOR STUDY: right knee swelling with proximal soft tissue gas COMPARISON: None. NUMBER OF VIEWS: Two views. TECHNIQUE: Two radiographic images acquired of the right tibia and fibula to include the knee and an kle in at least one projection. LIMITATIONS: None. FINDINGS: MINERALIZATION: Normal. BONES: No acute fracture or dislocation. No worrisome bone lesions. SOFT TISSUES: Soft tissue swelling with several bubbles of gas in the soft tissues of the proximal ca lf. Large suprapatellar joint effusion. OTHER: No other significant finding. IMPRESSION: LARGE JOINT EFFUSION. MULTIPLE BUBBLES OF GAS IN THE SOFT TISSUES OF THE PROXIMAL CALF. TECHNICAL DOCUMENTATION: JOB ID: [id number] [employer]- All Rights Reserved
--- NOTE | 2017-05-26 19:32 | PDOC PROGRESS REPORT ---
Subjective Progress Note for:: 05/26/17 Subjective:: This AM complaining of excrutiating right knee pain. Feels that it is more swollen and hurts with any type of movement. Denies redness or distal swelling. Xray of knee should effusion with gas bubbles. Ortho consulted and knee tapped bedside. Will go to OR tomorrow for debridement. Reason For Visit: SEPSIS ENDOCARDITIS, POLYARTHRITIS, IV DRUG ABUSE Physical Exam Vital Signs: Temp Pulse Resp BP Pulse Ox 99.2 F 115 H 20 105/57 L 99 05/26/17 07:16 05/26/17 07:16 05/26/17 07:16 05/26/17 07:16 05/26/17 07:16 Pulse Oximeter Continuous Start: 05/05/17 11: 26 Freq: RTQ4 Status: Complete Document 05/11/17 08:00 JDR (Rec: 05/11/17 11:14 JDR [email or web address]) Pulse Oximetry Assessment Oxygen Saturation (92-100) 98 Oxygen Flow Rate (L/min) 2 Oxygen Delivery Method Nasal Cannula Equipment Usage Equipment in Use Continuous SpO2 Machine # 8 Intake & Output 05/25/17 05/26/17 05/27/17 06:59 06:59 06:59 Intake Total 3104 3599 Output Total 3676 3650 Balance -571 -51 Weight 68 kg 66.2 kg General appearance: PRESENT: thin, other - Moderate distress secondary to knee pain Head exam: PRESENT: normocephalic Mouth exam: PRESENT: moist Respiratory exam: PRESENT: clear to auscultation antonio, unlabored Cardiovascular exam: PRESENT: diastolic murmur, RRR, systolic murmur, tachycardia GI/Abdominal exam: PRESENT: soft. ABSENT: tenderness Extremities exam: PRESENT: other - Right knee swollew with effusion, no crepitus , no noticable erythema. Tender to palpation Neurological exam: PRESENT: alert, awake, CN II-XII grossly intact Psychiatric exam: PRESENT: appropriate affect Results Laboratory Results: 05/26/17 05:46 05/26/17 05:46 05/26/17 05/26/17 05/26/17 05:46 05:46 12:34 WBC 25.2 H RBC 3.20 L Hgb 9.2 L Hct 27.6 L MCV 86 MCH 28.8 MCHC 33.4 RDW 15.8 H Plt Count 602 H Seg Neutrophils % Not Reportable Lymphocytes % Not Reportable Monocytes % Not Reportable Eosinophils % Not Reportable Basophils % Not Reportable Absolute Neutrophils Not Reportable Absolute Lymphocytes Not Reportable Absolute Monocytes Not Reportable Absolute Eosinophils Not Reportable Absolute Basophils Not Reportable Sodium 130.3 L Potassium 4.6 Chloride 92 L Carbon Dioxide 28 Anion Gap 10 BUN 13 Creatinine 0.48 L Est GFR ( Amer) > 60 Est GFR (Non-Af Amer) > 60 Glucose 185 H Calcium 8.9 Fluid Type SYNOVIAL Fluid Source KNEE Fluid Color LIGHT YELLOW Fluid Appearance CLOUDY Fluid Viscosity HIGHLY VISCOUS Fluid WBC [id number] Fluid RBC 2450 05/26/17 12:34 WBC RBC Hgb Hct MCV MCH MCHC RDW Plt Count Seg Neutrophils % Lymphocytes % Monocytes % Eosinophils % Basophils % Absolute Neutrophils Absolute Lymphocytes Absolute Monocytes Absolute Eosinophils Absolute Basophils Sodium Potassium Chloride Carbon Dioxide Anion Gap BUN Creatinine Est GFR ( Amer) Est GFR (Non-Af Amer) Glucose Calcium Fluid Type SYNOVIAL Fluid Source RIGHT KNEE Fluid Color Fluid Appearance Fluid Viscosity Fluid WBC Fluid RBC Impressions: Head CT 05/05/17 00:00 IMPRESSION: Limited negative study EVIDENCE OF ACUTE STROKE: NO. Lumbar Spine X-Ray 05/05/17 00:00 IMPRESSION: No acute fracture or malalignment. Multilevel disc space loss of height with anterior osteophyte formation Hip X-Ray 05/05/17 03:18 IMPRESSION: No acute findings. 2010 [employer]- All Rights Reserved Wrist X-Ray 05/05/17 03:18 IMPRESSION: No acute findings. Limited scaphoid views. 2010 [employer] All Rights Reserved Chest X-Ray 05/05/17 03:23 IMPRESSION: No acute cardiopulmonary findings. 2010 [employer] All Rights Reserved Guidance Fluoroscopy 05/12/17 00:00 IMPRESSION: SUCCESSFUL PLACEMENT OF A 5 FR DUAL LUMEN 35 CM PICC IN THE RIGHT BASILIC VEIN. Interventional Vascular Procedure 05/12/17 00:00 IMPRESSION: SUCCESSFUL PLACEMENT OF A 5 FR DUAL LUMEN 35 CM PICC IN THE RIGHT BASILIC VEIN. PICC Line Insertion 05/12/17 00:00 IMPRESSION: SUCCESSFUL PLACEMENT OF A 5 FR DUAL LUMEN 35 CM PICC IN THE RIGHT BASILIC VEIN. Knee X-Ray 05/26/17 00:00 IMPRESSION: Large suprapatellar knee joint effusion with air bubbles from septic joint. Soft tissue air bubbles in the medial right upper calf worrisome for infection with gas-forming organism. Tibia/Fibula X-Ray 05/26/17 00:00 IMPRESSION: LARGE JOINT EFFUSION. MULTIPLE BUBBLES OF GAS IN THE SOFT TISSUES OF THE PROXIMAL CALF. Assessment & Plan - Diagnosis (1) Septic arthritis of knee, right Is this a current diagnosis for this admission?: Yes Plan: New onset as of 05/25 PM, worse this AM. Xray with effusion and gas bubbles. - Tib/Fib Xray: knee effusion with gas bubbles in calf - MRI Right Lower extremity ordered for better visualization - Ortho consulted, tapped effusion at bedside - Follow up on body fluid cultures - IV Clindamycin 600mg q8 hours IV to cover anaerobic organisms. 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 - Will need a total of 6 weeks of IV antibiotics from the first negative blood culture - 05/14/17 blood cultures NGTD, previously positive for MSSA, Tentative last day of antibiotics: 06/28/17 - Given continued elevated WBC, repeated Blood cultures on 05/24 NGTD, afebrile today - Continue Vanc for now. - PICC In place - Discussed with social work 05/24/17. Would be possible to discharge patient to home but would have to return to every day for hospital for IV infusion. Also would need to be on IV antibiotic that can be scheduled daily (nafcillin would be good option) - Pt checking to see feasibility and safety. Will keep admitted to hospital for now. (3) Hyponatremia Is this a current diagnosis for this admission?: Yes Plan: Chronic, asymptomatic (4) Acute metabolic encephalopathy Is this a current diagnosis for this admission?: Yes - Time Time Spent with patient: 15-24 minutes Medications reviewed and adjusted accordingly: Yes Disposition: OR tomorrow for knee debridment
--- NOTE | 2017-05-26 22:24 | RADIOLOGY REPORT (SQ) ---
EXAM DESCRIPTION: MRI RT LOWER EXTREMITY COMBO COMPLETED DATE/TIME: 05/26/2017 10:01 pm REASON FOR STUDY: right knee effusion. xray with gas bubbles. COMPARISON: Plain radiographs TECHNIQUE: Multiplanar imaging of the right knee to include T1-weighted, postcontrast T1-weighted, a nd T2-weighted images. CONTRAST TYPE AND DOSE: 10 mL Prohance. RENAL FUNCTION: GFR > 60. LIMITATIONS: None. FINDINGS: BONE MARROW: No marrow signal alteration. Specifically no marrow replacement or marrow ed asim. No evidence for osteomyelitis. No cortical break through. SOFT TISSUES: There is a joint effusion. Extending from the joint is a large cyst cystic fluid colle ction in the popliteal fossa with surrounding edema and enhancement. Contains air bubbles. Maximum diameter 13 cm. Edema in adjacent muscles. OTHER: No other significant finding. IMPRESSION: No osteomyelitis. Septic joint containing fluid and gas and there is extensive fluid in the popliteal fossa communicati ng with the joint with both fluid and gas. Measures 13 cm. Mild edema in adjacent muscles. TECHNICAL DOCUMENTATION: JOB ID: [id number]- All Rights Reserved
[2017-05-26] MEDS ORDERED: BUPIVACAINE HCL 0.5%-EPI 1:200000 INJ/PF 30 ML VIAL ONE (23:09)
[2017-05-26] MEDS ORDERED: FENTANYL CITRATE INJ/PF 100 MCG/2 ML AMPUL ONE ×2 (23:24)
[2017-05-26] MEDS ORDERED: HYDROMORPHONE HCL INJ/PF 2 MG/ML AMPULE ONE (23:25)
[2017-05-26] MEDS ORDERED: MIDAZOLAM 2 MG/2 ML INJ ONE (23:25)
[2017-05-26] MEDS ORDERED: PROPOFOL INJ 200 MG/20 ML VIAL IV ONE (23:25)
[2017-05-27] MEDS ORDERED: FENTANYL CITRATE INJ/PF 100 MCG/2 ML AMPUL IV PRN ×3 (00:15)
[2017-05-27] MEDS ORDERED: MORPHINE SULFATE 10 MG/ML INJ IV PRN (00:15)
[2017-05-27] MEDS ORDERED: DIPHENHYDRAMINE HCL 50 MG/ML VIAL IV PRN (00:15)
[2017-05-27] MEDS ORDERED: MEPERIDINE HCL/PF INJ 25 MG/1 ML DISP.SYRIN IV PRN (00:15)
[2017-05-27] MEDS ORDERED: PROMETHAZINE HCL INJ 25 MG/1 ML VIAL IV PRN (00:15)
--- NOTE | 2017-05-27 01:23 | Progress Note ---
Provider Note Provider Note: I have reviewed patient's MRI which demonstrates significant intra-articular effusion with gas-forming material within the joint and extending along the medial gastrocnemius. Continues to have pain in his right lower extremity but relatively unchanged compared to previous examination. However given the involvement of the gas-forming organism I am concerned of evolving myonecrosis versus necrotizing fasciitis. Thus I have recommended emergent surgery which would include arthroscopic irrigation debridement right knee with open irrigation and debridement of the lower leg with possible wound VAC. Patient understands the prognosis and the severity of his current situation including loss of limb and ultimately . After discussing risks and benefits of the operative procedure the joint decision was made to proceed with operative intervention.
--- NOTE | 2017-05-27 01:30 | Operative Report ---
Operative Report DATE OF SURGERY: 05/27/17 PREOPERATIVE DIAGNOSIS: Septic right knee. Abscess right leg POSTOPERATIVE DIAGNOSIS: Same OPERATION: #1 Arthroscopic irrigation debridement right knee. #2 partial medial meniscectomy. #3 irrigation and debridement right leg including muscle and fascia. SURGEON: TRISH GILBERT ANESTHESIA: GA TISSUE REMOVED OR ALTERED: Aerobic/anaerobic, AFB and fungal cultures from fluid and tissue COMPLICATIONS: None ESTIMATED BLOOD LOSS: Minimal INTRAOPERATIVE FINDINGS: Gross purulence throughout the joint with extension posteriorly into the medial gastroc with connection noted with open incision. No significant fascial involvement or muscle necrosis. PROCEDURE: Indication for above procedure: 46-year-old male diagnosed with MSSA endocarditis. Over the past 24 hours he is noted increasing pain in his right knee with considerable swelling requiring pain medication. Patient was not having such severe pain prior to the past 24 hours. He does have history of chronic knee pain. Patient had aspiration demonstrating likelihood of septic arthritis along with an MRI that extended into the gastroc. Given the severity and gas-forming bacteria concern of evolving necrotizing fasciitis deep surgical treatment emergent. I discussed risks and benefits and the prognosis of patient's current condition he verbalized understanding consented for the procedure. Procedure In Detail: Patient was seen and evaluated in the preoperative holding area. The RIGHT lower extremity was initialized and marked. Patient has been receiving scheduled antibiotics. Patient was taken back to the operative room where transferred to the operative table and placed under general anesthesia. Once they were adequately anesthetized a nonsterile tourniquet was placed on the lower extremity. A surgical team debriefing was performed ensuring all instrumentation was available, the surgical procedure was discussed with possible concerns reviewed. The lower extremity was prepped with ChloraPrep and draped in a sterile fashion. A timeout was done identifying correct patient, procedure and extremity everyone in attendance agree with this and verbalized no concerns. The extremity was elevated the tourniquet was inflated to 300 mmHg. Anterior lateral portal was established arthroscope introduced into the patellofemoral joint. I then triangulated and established an anterior medial portal. Significant purulence was encountered and sent for cultures including AFB and fungal. The arthroscopic shaver was introduced into the joint. Inspection of the patellofemoral joint demonstrated chondral damage with grade 2 changes and significant synovitis. Medial compartment demonstrated grade 2 changes with posterior medial meniscal tear. With the arthroscopic shaver the meniscus was debrided to a stable base. Lateral compartment demonstrate no evidence of meniscal pathology. There was partial tearing of the ACL. A partial synovectomy was performed throughout the knee. A total of 3 L of saline were utilized for lavage. Once the arthroscopic portion of the case was complete I turned my attention to open procedure. Longitudinal skin incision was made along the palpable fluid collection at the medial gastroc. Longitudinal skin incision was made and significant amount of purulence was encountered. There was no evidence of tracking in a distal direction along the fascial planes there is no evidence of muscular necrosis. Any nonviable tissue was then excised including portions of the fascia but no muscle required debridement. With palpation there was tracking of the abscess to the joint posteriorly. The wound was copiously irrigated with 3 L of saline. I then proceeded with loose closure of the longitudinal skin incision after I placed a Joseph drain. Then under arthroscopic guidance a drain was placed through the suprapatellar lateral aspect. Skin incisions were closed with interrupted nylon suture. The drains were reinforced with nylon. 20 cc of 0.5 % Marcaine with epinephrine was injected for postoperative pain control. Wound was dressed with Xeroform, 4 x 4's and ABDs. Tourniquet was deflated. Patient good peripheral perfusion and normal dorsalis pedis pulse. Sponge counts, instrument counts, needle counts counts were correct. Patient was then awoken from anesthesia. Transferred from the operating room table to the operating room stretcher. There was no intraoperative complications patient tolerated procedure well stable to PACU. Postoperative plan: Patient will be continued on IV antibiotics which will be adjusted as per culture results.
[2017-05-27] MEDS: MORPHINE SULFATE 10 MG/ML INJ IV PRN ×4 (04:30→19:54)
[2017-05-27] MEDS: DULOXETINE HCL 30 MG CAPSULE.DR PO SCH ×3 (04:31→22:18)
[2017-05-27] MEDS: GABAPENTIN 300 MG CAPSULE PO SCH ×3 (04:31→22:18)
[2017-05-27] MEDS: AMITRIPTYLINE HCL 50 MG TABLET PO SCH ×2 (04:31→22:18)
[2017-05-27] MEDS: NORMAL SALINE 10 ML SDV (SCHEDULED) IV SCH ×3 (04:32→22:19)
[2017-05-27] MEDS: VANCOMYCIN HCL 1,250 MG in DEXTROSE 5%-WATER 250 ML IV SCH ×2 (04:32→08:54)
[2017-05-27] MEDS: HEPARIN SOD (PORCINE) 5,000 UNIT/ML 1 ML SYRINGE SUBCUT SCH ×4 (04:33→22:19)
[2017-05-27] MEDS: CLINDAMYCIN 600 MG/D5W RTU 600 MG/50 ML RTUPB IV SCH ×4 (06:24→22:18)
[2017-05-27 08:33] LABS: HEMATOCRIT 25.4 % (37.9-51.0); HEMOGLOBIN 8.6 g/dL (13.5-17.0); MEAN CORPUSCULAR HGB CONC 33.9 g/dL (32.0-36.0); MEAN CORPUSCULAR VOLUME 86 fl (80-97); PLATELET COUNT 608 10^3/uL (150-450); RED BLOOD COUNT 2.97 10^6/uL (4.35-5.55); RED CELL DISTRIBUTION WIDTH 15.9 % (11.5-14.0); WHITE BLOOD COUNT 24.9 10^3/uL (4.0-10.5)
[2017-05-27] MEDS: METFORMIN HCL 500 MG TABLET PO SCH ×2 (08:54→15:21)
[2017-05-27] MEDS: FERROUS SULFATE 325 MG TABLET PO SCH ×2 (08:54→17:20)
[2017-05-27 08:57] LABS: ABSOLUTE LYMPHOCYTES# (MANUAL) 4.2 10^3/uL (0.5-4.7); ABSOLUTE MONOCYTES # (MANUAL) 1.2 10^3/uL (0.1-1.4); ABSOLUTE NEUTROPHILS# (MANUAL) 19.2 10^3/uL (1.7-8.2); BASOPHILS % (MANUAL) 0 % (0-2); EOSINOPHILS % (MANUAL) 1 % (0-6); LYMPHOCYTES % (MANUAL) 16 % (13-45); MONOCYTES % (MANUAL) 5 % (3-13); SEGMENTED NEUTROPHILS % (MAN) 77 % (42-78); TOTAL CELLS COUNTED 100
[2017-05-27 08:58] LABS: ANION GAP 11 (5-19); BLOOD UREA NITROGEN 16 mg/dL (7-20); CALCIUM 8.8 mg/dL (8.4-10.2); CARBON DIOXIDE 26 mmol/L (22-30); CHLORIDE 91 mmol/L (98-107); GLUCOSE 139 mg/dL (75-110); POTASSIUM 4.4 mmol/L (3.6-5.0); SODIUM 127.9 mmol/L (137-145); TOXIC GRANULATION SLIGHT
[2017-05-27 08:59] LABS: ANISOCYTOSIS SLIGHT; HYPOCHROMASIA SLIGHT; PLATELET COMMENT INCREASED; POLYCHROMASIA SLIGHT
--- NOTE | 2017-05-27 09:44 | PDOC PROGRESS REPORT ---
Subjective Progress Note for:: 05/27/17 Subjective:: Patient lying in bed comfortably. According to nurse does complain of occasional discomfort. Denies fever chills or sweats. No issues postoperatively. Reason For Visit: SEPSIS ENDOCARDITIS, POLYARTHRITIS, IV DRUG ABUSE Physical Exam Vital Signs: Temp Pulse Resp BP Pulse Ox 98.3 F 105 H 16 110/63 99 05/27/17 07:23 05/27/17 07:23 05/27/17 07:23 05/27/17 07:23 05/27/17 07:23 Pulse Oximeter Continuous Start: 05/05/17 11: 26 Freq: RTQ4 Status: Complete Document 05/11/17 08:00 JDR (Rec: 05/11/17 11:14 JDR [email or web address]) Pulse Oximetry Assessment Oxygen Saturation (92-100) 98 Oxygen Flow Rate (L/min) 2 Oxygen Delivery Method Nasal Cannula Equipment Usage Equipment in Use Continuous SpO2 Machine # 8 Intake & Output 05/26/17 05/27/17 05/28/17 06:59 06:59 06:59 Intake Total 3599 7184 Output Total 3650 6445 Balance -51 739 Weight 66.2 kg Musculoskeletal exam: PRESENT: other - Right lower extremity: Dressing clean/dry /intact. Serosanguineous drainage within the ADA. Appropriate tenderness along the surgical site. No evidence of erythema proximally or distally. Compartments soft and compressible. Intact plantar flexion/dorsiflexion. Results Laboratory Results: 05/27/17 07:30 05/27/17 07:30 05/26/17 05/26/17 05/27/17 12:34 12:34 07:30 WBC RBC Hgb Hct MCV MCH MCHC RDW Plt Count Seg Neutrophils % Lymphocytes % Monocytes % Eosinophils % Basophils % Absolute Neutrophils Absolute Lymphocytes Absolute Monocytes Absolute Eosinophils Absolute Basophils Sodium 127.9 L Potassium 4.4 Chloride 91 L Carbon Dioxide 26 Anion Gap 11 BUN 16 Creatinine 0.53 Est GFR ( Amer) > 60 Est GFR (Non-Af Amer) > 60 Glucose 139 H Calcium 8.8 Fluid Type SYNOVIAL SYNOVIAL Fluid Source KNEE RIGHT KNEE Fluid Color LIGHT YELLOW Fluid Appearance CLOUDY Fluid Viscosity HIGHLY VISCOUS Fluid WBC 861671 Fluid RBC 2450 05/27/17 07:30 WBC 24.9 H RBC 2.97 L Hgb 8.6 L Hct 25.4 L MCV 86 MCH 29.0 MCHC 33.9 RDW 15.9 H Plt Count 608 H Seg Neutrophils % Not Reportable Lymphocytes % Not Reportable Monocytes % Not Reportable Eosinophils % Not Reportable Basophils % Not Reportable Absolute Neutrophils Not Reportable Absolute Lymphocytes Not Reportable Absolute Monocytes Not Reportable Absolute Eosinophils Not Reportable Absolute Basophils Not Reportable Sodium Potassium Chloride Carbon Dioxide Anion Gap BUN Creatinine Est GFR ( Amer) Est GFR (Non-Af Amer) Glucose Calcium Fluid Type Fluid Source Fluid Color Fluid Appearance Fluid Viscosity Fluid WBC Fluid RBC Impressions: Head CT 05/05/17 00:00 IMPRESSION: Limited negative study EVIDENCE OF ACUTE STROKE: NO. Lumbar Spine X-Ray 05/05/17 00:00 IMPRESSION: No acute fracture or malalignment. Multilevel disc space loss of height with anterior osteophyte formation Hip X-Ray 05/05/17 03:18 IMPRESSION: No acute findings. 2010 [employer]- All Rights Reserved Wrist X-Ray 05/05/17 03:18 IMPRESSION: No acute findings. Limited scaphoid views. 2010 [employer]- All Rights Reserved Chest X-Ray 05/05/17 03:23 IMPRESSION: No acute cardiopulmonary findings. 2010 [employer]- All Rights Reserved Guidance Fluoroscopy 05/12/17 00:00 IMPRESSION: SUCCESSFUL PLACEMENT OF A 5 FR DUAL LUMEN 35 CM PICC IN THE RIGHT BASILIC VEIN. Interventional Vascular Procedure 05/12/17 00:00 IMPRESSION: SUCCESSFUL PLACEMENT OF A 5 FR DUAL LUMEN 35 CM PICC IN THE RIGHT BASILIC VEIN. PICC Line Insertion 05/12/17 00:00 IMPRESSION: SUCCESSFUL PLACEMENT OF A 5 FR DUAL LUMEN 35 CM PICC IN THE RIGHT BASILIC VEIN. Knee X-Ray 05/26/17 00:00 IMPRESSION: Large suprapatellar knee joint effusion with air bubbles from septic joint. Soft tissue air bubbles in the medial right upper calf worrisome for infection with gas-forming organism. Lower Extremity MRI 05/26/17 00:00 IMPRESSION: No osteomyelitis. Septic joint containing fluid and gas and there is extensive fluid in the popliteal fossa communicating with the joint with both fluid and gas. Measures 13 cm. Mild edema in adjacent muscles. Tibia/Fibula X-Ray 05/26/17 00:00 IMPRESSION: LARGE JOINT EFFUSION. MULTIPLE BUBBLES OF GAS IN THE SOFT TISSUES OF THE PROXIMAL CALF. Assessment & Plan - Diagnosis (1) Myalgia Is this a current diagnosis for this admission?: No (2) Septic arthritis of knee, right Qualifiers: Septic arthritis organism: due to unspecified organism Qualified Code(s): M00.9 - Pyogenic arthritis, unspecified Is this a current diagnosis for this admission?: Yes Plan: Status post arthroscopic I&D, I&D right leg 05/27/17 Patient doing well postoperatively. Will continue IV antibiotics as per hospitalist recommendation and altered according to sensitivities. Currently there is no signs or symptoms to suggest necrotizing fasciitis and patient is hemodynamically stable. We will continue to monitor drainage output and proceed with dressing change tomorrow.
[2017-05-27] MEDS: DOCUSATE SODIUM 100 MG CAPSULE PO SCH ×2 (10:57→17:20)
[2017-05-27] MEDS: METOPROLOL SUCCINATE 50 MG TAB.SR.24H PO SCH (10:57)
[2017-05-27] MEDS: LIDOCAINE 5% (700 MG) TRANSDERMAL ADH..PATCH TP SCH (10:59)
--- NOTE | 2017-05-27 12:07 | PDOC PROGRESS REPORT ---
Subjective Progress Note for:: 05/27/17 Subjective:: Given septic knee with concern for nectrotizing facitis, taken to OR by ortho overnight. Tolerated procedure well. This AM complaining of pain with movement. Denies fevers, chills, CP, SOB. Wants to eat food. Reason For Visit: SEPSIS ENDOCARDITIS, POLYARTHRITIS, IV DRUG ABUSE Physical Exam Vital Signs: Temp Pulse Resp BP Pulse Ox 98.3 F 105 H 16 110/63 99 05/27/17 07:23 05/27/17 07:23 05/27/17 07:23 05/27/17 07:23 05/27/17 07:23 Pulse Oximeter Continuous Start: 05/05/17 11: 26 Freq: RTQ4 Status: Complete Document 05/11/17 08:00 JDR (Rec: 05/11/17 11:14 JDR [email or web address]) Pulse Oximetry Assessment Oxygen Saturation (92-100) 98 Oxygen Flow Rate (L/min) 2 Oxygen Delivery Method Nasal Cannula Equipment Usage Equipment in Use Continuous SpO2 Machine # 8 Intake & Output 05/26/17 05/27/17 05/28/17 06:59 06:59 06:59 Intake Total 3599 7184 Output Total 3650 6445 Balance -51 739 Weight 66.2 kg General appearance: PRESENT: thin, other - Mild distress secondary to pain Head exam: PRESENT: normocephalic Mouth exam: PRESENT: moist Teeth exam: PRESENT: poor dentation Respiratory exam: PRESENT: chest wall tenderness - anteriorly Cardiovascular exam: PRESENT: diastolic murmur, +S1, +S2, systolic murmur, tachycardia GI/Abdominal exam: PRESENT: soft. ABSENT: tenderness Extremities exam: PRESENT: other - Right lower extremity wrapped, tender to palpation or with movement, did not exam as was seen by charlee earlier. Neurological exam: PRESENT: alert, awake, CN II-XII grossly intact Results Laboratory Results: 05/27/17 07:30 05/27/17 07:30 05/26/17 05/26/17 05/27/17 12:34 12:34 07:30 WBC RBC Hgb Hct MCV MCH MCHC RDW Plt Count Seg Neutrophils % Lymphocytes % Monocytes % Eosinophils % Basophils % Absolute Neutrophils Absolute Lymphocytes Absolute Monocytes Absolute Eosinophils Absolute Basophils Sodium 127.9 L Potassium 4.4 Chloride 91 L Carbon Dioxide 26 Anion Gap 11 BUN 16 Creatinine 0.53 Est GFR ( Amer) > 60 Est GFR (Non-Af Amer) > 60 Glucose 139 H Calcium 8.8 Fluid Type SYNOVIAL SYNOVIAL Fluid Source KNEE RIGHT KNEE Fluid Color LIGHT YELLOW Fluid Appearance CLOUDY Fluid Viscosity HIGHLY VISCOUS Fluid WBC 223476 Fluid RBC 2450 05/27/17 07:30 WBC 24.9 H RBC 2.97 L Hgb 8.6 L Hct 25.4 L MCV 86 MCH 29.0 MCHC 33.9 RDW 15.9 H Plt Count 608 H Seg Neutrophils % Not Reportable Lymphocytes % Not Reportable Monocytes % Not Reportable Eosinophils % Not Reportable Basophils % Not Reportable Absolute Neutrophils Not Reportable Absolute Lymphocytes Not Reportable Absolute Monocytes Not Reportable Absolute Eosinophils Not Reportable Absolute Basophils Not Reportable Sodium Potassium Chloride Carbon Dioxide Anion Gap BUN Creatinine Est GFR ( Amer) Est GFR (Non-Af Amer) Glucose Calcium Fluid Type Fluid Source Fluid Color Fluid Appearance Fluid Viscosity Fluid WBC Fluid RBC Impressions: Head CT 05/05/17 00:00 IMPRESSION: Limited negative study EVIDENCE OF ACUTE STROKE: NO. Lumbar Spine X-Ray 05/05/17 00:00 IMPRESSION: No acute fracture or malalignment. Multilevel disc space loss of height with anterior osteophyte formation Hip X-Ray 05/05/17 03:18 IMPRESSION: No acute findings. 2010 [employer]- All Rights Reserved Wrist X-Ray 05/05/17 03:18 IMPRESSION: No acute findings. Limited scaphoid views. 2010 [employer]- All Rights Reserved Chest X-Ray 05/05/17 03:23 IMPRESSION: No acute cardiopulmonary findings. 2010 [employer]- All Rights Reserved Guidance Fluoroscopy 05/12/17 00:00 IMPRESSION: SUCCESSFUL PLACEMENT OF A 5 FR DUAL LUMEN 35 CM PICC IN THE RIGHT BASILIC VEIN. Interventional Vascular Procedure 05/12/17 00:00 IMPRESSION: SUCCESSFUL PLACEMENT OF A 5 FR DUAL LUMEN 35 CM PICC IN THE RIGHT BASILIC VEIN. PICC Line Insertion 05/12/17 00:00 IMPRESSION: SUCCESSFUL PLACEMENT OF A 5 FR DUAL LUMEN 35 CM PICC IN THE RIGHT BASILIC VEIN. Knee X-Ray 05/26/17 00:00 IMPRESSION: Large suprapatellar knee joint effusion with air bubbles from septic joint. Soft tissue air bubbles in the medial right upper calf worrisome for infection with gas-forming organism. Lower Extremity MRI 05/26/17 00:00 IMPRESSION: No osteomyelitis. Septic joint containing fluid and gas and there is extensive fluid in the popliteal fossa communicating with the joint with both fluid and gas. Measures 13 cm. Mild edema in adjacent muscles. Tibia/Fibula X-Ray 05/26/17 00:00 IMPRESSION: LARGE JOINT EFFUSION. MULTIPLE BUBBLES OF GAS IN THE SOFT TISSUES OF THE PROXIMAL CALF. Assessment & Plan - Diagnosis (1) Septic arthritis of knee, right Qualifiers: Septic arthritis organism: due to unspecified organism Qualified Code(s): M00.9 - Pyogenic arthritis, unspecified Is this a current diagnosis for this admission?: Yes Plan: New onset as of 05/25 PM, worse this AM. Xray with effusion and gas bubbles. Tib/ Fib Xray: knee effusion with gas bubbles in calf. MRI Right Lower with septic joint containing fluid and gas with extensive fluid in the popliteal fossa communicating with the joint with both fluid and gas. Body fluid cultures with > 500,000 WBCs. - Taken to the OR urgently by ortho on 05/26 with multiple cultures pending - Repeat blood cultures NGTD at 2 days - Continue IV Clindamycin 600mg q8 hours and IV Vanc - IV Morphine 2mg q4 hours PRN for pain control, gave 1 time dose of IV Dilaudid today. 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 - Will need a total of 6 weeks of IV antibiotics from the first negative blood culture - 05/14/17 blood cultures NGTD, previously positive for MSSA, Tentative last day of antibiotics: 06/28/17 - Given continued elevated WBC, repeated Blood cultures on 05/24 NGTD, afebrile today - Continue Vanc for now. - PICC In place - Discussed with social work 05/24/17. Would be possible to discharge patient to home but would have to return to every day for hospital for IV infusion. Also would need to be on IV antibiotic that can be scheduled daily (nafcillin would be good option) - Pt checking to see feasibility and safety. Will keep admitted to hospital for now. (3) Hyponatremia Is this a current diagnosis for this admission?: Yes Plan: Chronic, asymptomatic (4) Normocytic anemia Is this a current diagnosis for this admission?: Yes Plan: Hg stable. - Time Time Spent with patient: Less than 15 minutes
[2017-05-27] MEDS ORDERED: HYDROMORPHONE HCL INJ/PF 2 MG/ML AMPULE IV ONE (12:30)
[2017-05-28] MEDS: MORPHINE SULFATE 10 MG/ML INJ IV PRN ×5 (00:42→23:46)
[2017-05-28 04:48] LABS: HEMATOCRIT 25.5 % (37.9-51.0); HEMOGLOBIN 8.5 g/dL (13.5-17.0); MEAN CORPUSCULAR HEMOGLOBIN 28.5 pg (27.0-33.4); MEAN CORPUSCULAR HGB CONC 33.4 g/dL (32.0-36.0); MEAN CORPUSCULAR VOLUME 85 fl (80-97); PLATELET COUNT 628 10^3/uL (150-450); RED BLOOD COUNT 2.98 10^6/uL (4.35-5.55); RED CELL DISTRIBUTION WIDTH 15.9 % (11.5-14.0); WHITE BLOOD COUNT 24.1 10^3/uL (4.0-10.5)
[2017-05-28 04:53] LABS: ANION GAP 10 (5-19); BLOOD UREA NITROGEN 17 mg/dL (7-20); CALCIUM 8.7 mg/dL (8.4-10.2); CARBON DIOXIDE 27 mmol/L (22-30); CHLORIDE 91 mmol/L (98-107); GLUCOSE 190 mg/dL (75-110); POTASSIUM 4.5 mmol/L (3.6-5.0); SODIUM 128.4 mmol/L (137-145)
[2017-05-28 05:14] LABS: ABSOLUTE LYMPHOCYTES# (MANUAL) 3.1 10^3/uL (0.5-4.7); ABSOLUTE NEUTROPHILS# (MANUAL) 19.5 10^3/uL (1.7-8.2); BAND NEUTROPHILS % (MANUAL) 1 % (3-5); BASOPHILS % (MANUAL) 0 % (0-2); EOSINOPHILS % (MANUAL) 2 % (0-6); LYMPHOCYTES % (MANUAL) 13 % (13-45); MONOCYTES % (MANUAL) 4 % (3-13); SEGMENTED NEUTROPHILS % (MAN) 79 % (42-78); TOTAL CELLS COUNTED 100
[2017-05-28 05:20] LABS: ANISOCYTOSIS 1+; HYPOCHROMASIA 1+; PLATELET COMMENT INCREASED; PLATELET LARGE PRESENT; POLYCHROMASIA SLIGHT; TOXIC GRANULATION SLIGHT
[2017-05-28 05:21] LABS: PLATELET GIANT PRESENT
[2017-05-28 05:24] LABS: MYELOCYTES % (MANUAL) 1 % (0)
[2017-05-28] MEDS: CLINDAMYCIN 600 MG/D5W RTU 600 MG/50 ML RTUPB IV SCH ×3 (06:22→23:11)
[2017-05-28] MEDS: HEPARIN SOD (PORCINE) 5,000 UNIT/ML 1 ML SYRINGE SUBCUT SCH ×3 (06:22→23:12)
[2017-05-28] MEDS: METFORMIN HCL 500 MG TABLET PO SCH ×2 (08:44→16:04)
[2017-05-28] MEDS: FERROUS SULFATE 325 MG TABLET PO SCH ×2 (08:44→17:48)
[2017-05-28] MEDS: DULOXETINE HCL 30 MG CAPSULE.DR PO SCH (09:49)
[2017-05-28] MEDS: METOPROLOL SUCCINATE 50 MG TAB.SR.24H PO SCH (09:50)
[2017-05-28] MEDS: NORMAL SALINE 10 ML SDV (SCHEDULED) IV SCH ×2 (09:51→23:12)
[2017-05-28] MEDS: DOCUSATE SODIUM 100 MG CAPSULE PO SCH ×2 (09:51→17:48)
[2017-05-28] MEDS: GABAPENTIN 300 MG CAPSULE PO SCH ×2 (09:51→23:12)
[2017-05-28] MEDS: LIDOCAINE 5% (700 MG) TRANSDERMAL ADH..PATCH TP SCH (09:52)
--- NOTE | 2017-05-28 10:27 | PDOC PROGRESS REPORT ---
Subjective Subjective:: Patient lying in bed comfortably. According to nurse does complain of occasional discomfort. Denies fever chills or sweats. No issues postoperatively. Reason For Visit: SEPSIS ENDOCARDITIS, POLYARTHRITIS, IV DRUG ABUSE Physical Exam Vital Signs: Temp Pulse Resp BP Pulse Ox 98.6 F 105 H 17 93/64 L 98 05/28/17 07:18 05/28/17 07:18 05/28/17 07:18 05/28/17 07:18 05/28/17 07:18 Pulse Oximeter Continuous Start: 05/05/17 11: 26 Freq: RTQ4 Status: Complete Document 05/11/17 08:00 JDR (Rec: 05/11/17 11:14 JDR [email or web address]) Pulse Oximetry Assessment Oxygen Saturation (92-100) 98 Oxygen Flow Rate (L/min) 2 Oxygen Delivery Method Nasal Cannula Equipment Usage Equipment in Use Continuous SpO2 Machine # 8 Intake & Output 05/27/17 05/28/17 05/29/17 06:59 06:59 06:59 Intake Total 7184 3108 Output Total 6445 2805 Balance 739 303 Musculoskeletal exam: PRESENT: other - Right leg: Dressing clean dressings were changed today. No residual swelling. No evidence of tracking erythema. Compartments soft and compressible no sign of compartment syndrome. Minimal knee effusion. Serosanguineous drainage within the drain. Results Laboratory Results: 05/28/17 04:10 05/28/17 04:10 05/28/17 05/28/17 04:10 04:10 WBC 24.1 H RBC 2.98 L Hgb 8.5 L Hct 25.5 L MCV 85 MCH 28.5 MCHC 33.4 RDW 15.9 H Plt Count 628 H Seg Neutrophils % Not Reportable Lymphocytes % Not Reportable Monocytes % Not Reportable Eosinophils % Not Reportable Basophils % Not Reportable Absolute Neutrophils Not Reportable Absolute Lymphocytes Not Reportable Absolute Monocytes Not Reportable Absolute Eosinophils Not Reportable Absolute Basophils Not Reportable Sodium 128.4 L Potassium 4.5 Chloride 91 L Carbon Dioxide 27 Anion Gap 10 BUN 17 Creatinine 0.53 Est GFR ( Amer) > 60 Est GFR (Non-Af Amer) > 60 Glucose 190 H Calcium 8.7 Impressions: Head CT 05/05/17 00:00 IMPRESSION: Limited negative study EVIDENCE OF ACUTE STROKE: NO. Lumbar Spine X-Ray 12/22/17 00:00 IMPRESSION: No acute fracture or malalignment. Multilevel disc space loss of height with anterior osteophyte formation Hip X-Ray 05/05/17 03:18 IMPRESSION: No acute findings. 2010 [employer]- All Rights Reserved Wrist X-Ray 05/05/17 03:18 IMPRESSION: No acute findings. Limited scaphoid views. 2010 [employer]- All Rights Reserved Chest X-Ray 05/05/17 03:23 IMPRESSION: No acute cardiopulmonary findings. 2010 [employer]- All Rights Reserved Guidance Fluoroscopy 05/12/17 00:00 IMPRESSION: SUCCESSFUL PLACEMENT OF A 5 FR DUAL LUMEN 35 CM PICC IN THE RIGHT BASILIC VEIN. Interventional Vascular Procedure 05/12/17 00:00 IMPRESSION: SUCCESSFUL PLACEMENT OF A 5 FR DUAL LUMEN 35 CM PICC IN THE RIGHT BASILIC VEIN. PICC Line Insertion 05/12/17 00:00 IMPRESSION: SUCCESSFUL PLACEMENT OF A 5 FR DUAL LUMEN 35 CM PICC IN THE RIGHT BASILIC VEIN. Knee X-Ray 05/26/17 00:00 IMPRESSION: Large suprapatellar knee joint effusion with air bubbles from septic joint. Soft tissue air bubbles in the medial right upper calf worrisome for infection with gas-forming organism. Lower Extremity MRI 05/26/17 00:00 IMPRESSION: No osteomyelitis. Septic joint containing fluid and gas and there is extensive fluid in the popliteal fossa communicating with the joint with both fluid and gas. Measures 13 cm. Mild edema in adjacent muscles. Tibia/Fibula X-Ray 05/26/17 00:00 IMPRESSION: LARGE JOINT EFFUSION. MULTIPLE BUBBLES OF GAS IN THE SOFT TISSUES OF THE PROXIMAL CALF. Assessment & Plan - Diagnosis (1) Myalgia Is this a current diagnosis for this admission?: No (2) Septic arthritis of knee, right Qualifiers: Septic arthritis organism: due to unspecified organism Qualified Code(s): M00.9 - Pyogenic arthritis, unspecified Is this a current diagnosis for this admission?: Yes Plan: Status post arthroscopic I&D, I&D right leg 05/27/17 #1 continue IV antibiotics as per hospitalist recommendation. #2 pain control. #3 physical therapy partial weightbearing right lower extremity #4 continue ADA drains until output less than 5 cc
[2017-05-28] MEDS ORDERED: DEXTROSE 5%-NORMAL SALINE 1,000 ML IV ONE (12:23)
[2017-05-28] MEDS ORDERED: HYDROMORPHONE HCL INJ/PF 2 MG/ML AMPULE IV ONE (13:00)
--- NOTE | 2017-05-28 14:36 | PDOC PROGRESS REPORT ---
Subjective Progress Note for:: 05/28/17 Subjective:: Continues to complain of pain with movement. Per rn staffing is more sedated. Patient states that he is unable to get comfortable and can not sleep. Also has occasional sweats. Denies fevers, chills, CP, SOB. food. Reason For Visit: SEPSIS ENDOCARDITIS, POLYARTHRITIS, IV DRUG ABUSE Physical Exam Vital Signs: Temp Pulse Resp BP Pulse Ox 98.4 F 106 H 18 116/64 99 05/28/17 10:53 05/28/17 10:53 05/28/17 10:53 05/28/17 10:53 05/28/17 10:53 Pulse Oximeter Continuous Start: 05/05/17 11: 26 Freq: RTQ4 Status: Complete Document 05/11/17 08:00 JDR (Rec: 05/11/17 11:14 JDR [email or web address]) Pulse Oximetry Assessment Oxygen Saturation (92-100) 98 Oxygen Flow Rate (L/min) 2 Oxygen Delivery Method Nasal Cannula Equipment Usage Equipment in Use Continuous SpO2 Machine # 8 Intake & Output 05/27/17 05/28/17 05/29/17 06:59 06:59 06:59 Intake Total 7184 3108 Output Total 6445 2805 Balance 739 303 General appearance: PRESENT: mild distress - secondary to pain, thin Head exam: PRESENT: normocephalic Mouth exam: PRESENT: dry mucosa Teeth exam: PRESENT: poor dentation Cardiovascular exam: PRESENT: +S1, +S2, tachycardia GI/Abdominal exam: PRESENT: normal bowel sounds, soft. ABSENT: tenderness Extremities exam: PRESENT: other - RLE dressing in place, tender to palpation and with movement. Neurological exam: PRESENT: alert, awake, CN II-XII grossly intact Psychiatric exam: PRESENT: anxious Skin exam: PRESENT: warm Results Laboratory Results: 05/28/17 04:10 05/28/17 04:10 05/28/17 05/28/17 04:10 04:10 WBC 24.1 H RBC 2.98 L Hgb 8.5 L Hct 25.5 L MCV 85 MCH 28.5 MCHC 33.4 RDW 15.9 H Plt Count 628 H Seg Neutrophils % Not Reportable Lymphocytes % Not Reportable Monocytes % Not Reportable Eosinophils % Not Reportable Basophils % Not Reportable Absolute Neutrophils Not Reportable Absolute Lymphocytes Not Reportable Absolute Monocytes Not Reportable Absolute Eosinophils Not Reportable Absolute Basophils Not Reportable Sodium 128.4 L Potassium 4.5 Chloride 91 L Carbon Dioxide 27 Anion Gap 10 BUN 17 Creatinine 0.53 Est GFR ( Amer) > 60 Est GFR (Non-Af Amer) > 60 Glucose 190 H Calcium 8.7 Impressions: Head CT 05/05/17 00:00 IMPRESSION: Limited negative study EVIDENCE OF ACUTE STROKE: NO. Lumbar Spine X-Ray 05/05/17 00:00 IMPRESSION: No acute fracture or malalignment. Multilevel disc space loss of height with anterior osteophyte formation Hip X-Ray 05/05/17 03:18 IMPRESSION: No acute findings. 2010 [employer]- All Rights Reserved Wrist X-Ray 05/05/17 03:18 IMPRESSION: No acute findings. Limited scaphoid views. 2010 [employer]- All Rights Reserved Chest X-Ray 05/05/17 03:23 IMPRESSION: No acute cardiopulmonary findings. 2010 [employer]- All Rights Reserved Guidance Fluoroscopy 05/12/17 00:00 IMPRESSION: SUCCESSFUL PLACEMENT OF A 5 FR DUAL LUMEN 35 CM PICC IN THE RIGHT BASILIC VEIN. Interventional Vascular Procedure 05/12/17 00:00 IMPRESSION: SUCCESSFUL PLACEMENT OF A 5 FR DUAL LUMEN 35 CM PICC IN THE RIGHT BASILIC VEIN. PICC Line Insertion 05/12/17 00:00 IMPRESSION: SUCCESSFUL PLACEMENT OF A 5 FR DUAL LUMEN 35 CM PICC IN THE RIGHT BASILIC VEIN. Knee X-Ray 05/26/17 00:00 IMPRESSION: Large suprapatellar knee joint effusion with air bubbles from septic joint. Soft tissue air bubbles in the medial right upper calf worrisome for infection with gas-forming organism. Lower Extremity MRI 05/26/17 00:00 IMPRESSION: No osteomyelitis. Septic joint containing fluid and gas and there is extensive fluid in the popliteal fossa communicating with the joint with both fluid and gas. Measures 13 cm. Mild edema in adjacent muscles. Tibia/Fibula X-Ray 05/26/17 00:00 IMPRESSION: LARGE JOINT EFFUSION. MULTIPLE BUBBLES OF GAS IN THE SOFT TISSUES OF THE PROXIMAL CALF. Assessment & Plan - Diagnosis (1) Septic arthritis of knee, right Qualifiers: Septic arthritis organism: due to unspecified organism Qualified Code(s): M00.9 - Pyogenic arthritis, unspecified Is this a current diagnosis for this admission?: Yes Plan: New onset as of 05/25 PM, worse this AM. Xray with effusion and gas bubbles. Tib/ Fib Xray: knee effusion with gas bubbles in calf. MRI Right Lower with septic joint containing fluid and gas with extensive fluid in the popliteal fossa communicating with the joint with both fluid and gas. Body fluid cultures with > 500,000 WBCs. - Taken to the OR urgently by ortho on 05/26 with cultures NGTD, fungal and AFB cx pending - Repeat blood cultures NGTD at 2 days - Continue IV Clindamycin 600mg q8 hours and IV Vanc - IV Morphine 2mg q4 hours PRN for pain control, gave additional 1 time dose of IV Dilaudid today. 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 - Will need a total of 6 weeks of IV antibiotics from the first negative blood culture - 05/14/17 blood cultures NGTD, previously positive for MSSA, Tentative last day of antibiotics: 06/28/17 - Given continued elevated WBC, repeated Blood cultures on 05/24 NGTD, afebrile today - Continue Vanc for now - PICC In place - Discussed with social work 05/24/17. Would be possible to discharge patient to home but would have to return to every day for hospital for IV infusion. Also would need to be on IV antibiotic that can be scheduled daily (nafcillin would be good option) (3) Hyponatremia Is this a current diagnosis for this admission?: Yes Plan: Chronic, asymptomatic (4) Normocytic anemia Is this a current diagnosis for this admission?: Yes Plan: Hg stable. (5) Constipation due to opioid therapy Is this a current diagnosis for this admission?: Yes Plan: No BM in 3 days. More aggressive BM regimen with colace and miralax scheduled, has milk of mag ordered PRN (6) Sedated due to multiple medications Is this a current diagnosis for this admission?: Yes Plan: Multiple sedating medication noted, particularly with opioids ordered - Discontinued Elavil and Cymbalta today - Continue Gabapentin. Lots of room to increase if needed - Time Time Spent with patient: 15-24 minutes
[2017-05-28] MEDS ORDERED: POLYETHYLENE GLYCOL 3350 POWDER 17 GM/1 PACKET PO ONE (16:00)
[2017-05-28] MEDS: VANCOMYCIN HCL 1,250 MG in DEXTROSE 5%-WATER 250 ML IV SCH ×2 (16:04→21:17)
[2017-05-29] MEDS: VANCOMYCIN HCL 1,250 MG in DEXTROSE 5%-WATER 250 ML IV SCH ×3 (03:16→14:11)
[2017-05-29] MEDS: HEPARIN SOD (PORCINE) 5,000 UNIT/ML 1 ML SYRINGE SUBCUT SCH ×3 (05:40→21:57)
[2017-05-29] MEDS: CLINDAMYCIN 600 MG/D5W RTU 600 MG/50 ML RTUPB IV SCH ×2 (05:41→13:58)
[2017-05-29] MEDS: MORPHINE SULFATE 10 MG/ML INJ IV PRN ×3 (05:41→20:14)
[2017-05-29 06:17] LABS: HEMOGLOBIN 8.2 g/dL (13.5-17.0); MEAN CORPUSCULAR HEMOGLOBIN 28.8 pg (27.0-33.4); MEAN CORPUSCULAR HGB CONC 34.3 g/dL (32.0-36.0); MEAN CORPUSCULAR VOLUME 84 fl (80-97); PLATELET COUNT 574 10^3/uL (150-450); RED BLOOD COUNT 2.86 10^6/uL (4.35-5.55); RED CELL DISTRIBUTION WIDTH 16.2 % (11.5-14.0); WHITE BLOOD COUNT 21.4 10^3/uL (4.0-10.5)
[2017-05-29 06:38] LABS: ANION GAP 9 (5-19); BLOOD UREA NITROGEN 12 mg/dL (7-20); CALCIUM 8.4 mg/dL (8.4-10.2); CARBON DIOXIDE 27 mmol/L (22-30); CHLORIDE 90 mmol/L (98-107); GLUCOSE 146 mg/dL (75-110); POTASSIUM 4.6 mmol/L (3.6-5.0); SODIUM 125.7 mmol/L (137-145)
[2017-05-29 06:52] LABS: ABSOLUTE LYMPHOCYTES# (MANUAL) 1.5 10^3/uL (0.5-4.7); ABSOLUTE MONOCYTES # (MANUAL) 1.9 10^3/uL (0.1-1.4); ABSOLUTE NEUTROPHILS# (MANUAL) 17.8 10^3/uL (1.7-8.2); BASOPHILS % (MANUAL) 0 % (0-2); EOSINOPHILS % (MANUAL) 1 % (0-6); LYMPHOCYTES % (MANUAL) 7 % (13-45); MONOCYTES % (MANUAL) 9 % (3-13); SEGMENTED NEUTROPHILS % (MAN) 83 % (42-78); TOTAL CELLS COUNTED 100
[2017-05-29 06:53] LABS: ANISOCYTOSIS 2+; PLATELET COMMENT INCREASED
[2017-05-29] MEDS: DOCUSATE SODIUM 100 MG CAPSULE PO SCH ×2 (09:17→16:52)
[2017-05-29] MEDS: METFORMIN HCL 500 MG TABLET PO SCH ×2 (09:17→16:15)
[2017-05-29] MEDS: GABAPENTIN 300 MG CAPSULE PO SCH ×2 (09:17→21:58)
[2017-05-29] MEDS: POLYETHYLENE GLYCOL 3350 POWDER 17 GM/1 PACKET PO SCH (09:18)
[2017-05-29] MEDS: FERROUS SULFATE 325 MG TABLET PO SCH ×2 (09:18→16:52)
[2017-05-29] MEDS: LIDOCAINE 5% (700 MG) TRANSDERMAL ADH..PATCH TP SCH (09:19)
[2017-05-29] MEDS: NORMAL SALINE 10 ML SDV (SCHEDULED) IV SCH ×2 (09:19→21:58)
[2017-05-29 09:57] LABS: VANCOMYCIN,TROUGH 15.7 ug/mL (5.0-20.0)
[2017-05-29] MEDS ORDERED: MAGNESIUM HYDROXIDE SUSP 30 ML UDCUP PO PRN (10:30)
[2017-05-29] MEDS ORDERED: OXYCODONE HCL SR 10 MG TABLET PO ONE (10:30)
--- NOTE | 2017-05-29 15:00 | PDOC PROGRESS REPORT ---
Subjective Progress Note for:: 05/29/17 Subjective:: Pain better controlled today. Requesting more long acting pain medication that dulls that pain. Agreeable to come off pain meds when pain is more tolerable - "I do not want to get addicted to pain meds". Had large BM last night. Denies fevers, chills, CP, abdominal pain, NV, SOB. Appetite remains good. Reason For Visit: SEPSIS ENDOCARDITIS, POLYARTHRITIS, IV DRUG ABUSE Physical Exam Vital Signs: Temp Pulse Resp BP Pulse Ox 98.7 F 76 18 91/49 L 98 05/29/17 10:53 05/29/17 10:53 05/29/17 10:53 05/29/17 10:53 05/29/17 10:53 Pulse Oximeter Continuous Start: 05/05/17 11: 26 Freq: RTQ4 Status: Complete Document 05/11/17 08:00 JDR (Rec: 05/11/17 11:14 JDR [email or web address]) Pulse Oximetry Assessment Oxygen Saturation (92-100) 98 Oxygen Flow Rate (L/min) 2 Oxygen Delivery Method Nasal Cannula Equipment Usage Equipment in Use Continuous SpO2 Machine # 8 Intake & Output 05/28/17 05/29/17 05/30/17 06:59 06:59 06:59 Intake Total 3108 2947 Output Total 2805 925 Balance 303 2022 Weight 66.7 kg General appearance: PRESENT: no acute distress, thin, other - Much more comfortable today Head exam: PRESENT: normocephalic Mouth exam: PRESENT: moist Teeth exam: PRESENT: poor dentation Respiratory exam: PRESENT: unlabored Cardiovascular exam: PRESENT: +S1, +S2 GI/Abdominal exam: PRESENT: normal bowel sounds, other. ABSENT: soft, tenderness Neurological exam: PRESENT: alert, awake, CN II-XII grossly intact Psychiatric exam: PRESENT: appropriate affect Results Laboratory Results: 05/29/17 05:30 05/29/17 05:30 05/29/17 05/29/17 05:30 05:30 WBC 21.4 H RBC 2.86 L Hgb 8.2 L Hct 24.0 L MCV 84 MCH 28.8 MCHC 34.3 RDW 16.2 H Plt Count 574 H Seg Neutrophils % Not Reportable Lymphocytes % Not Reportable Monocytes % Not Reportable Eosinophils % Not Reportable Basophils % Not Reportable Absolute Neutrophils Not Reportable Absolute Lymphocytes Not Reportable Absolute Monocytes Not Reportable Absolute Eosinophils Not Reportable Absolute Basophils Not Reportable Sodium 125.7 L Potassium 4.6 Chloride 90 L Carbon Dioxide 27 Anion Gap 9 BUN 12 Creatinine 0.49 L Est GFR ( Amer) > 60 Est GFR (Non-Af Amer) > 60 Glucose 146 H Calcium 8.4 05/26/17 12:34 Knee Fluid - Right Gram Stain - Final 05/26/17 12:34 Knee Fluid - Right Body Fluid Culture - Final NO AEROBIC OR ANAEROBIC ORGANISMS RECOVERED Impressions: Head CT 05/05/17 00:00 IMPRESSION: Limited negative study EVIDENCE OF ACUTE STROKE: NO. Lumbar Spine X-Ray 05/05/17 00:00 IMPRESSION: No acute fracture or malalignment. Multilevel disc space loss of height with anterior osteophyte formation Hip X-Ray 05/05/17 03:18 IMPRESSION: No acute findings. 2010 [employer]- All Rights Reserved Wrist X-Ray 05/05/17 03:18 IMPRESSION: No acute findings. Limited scaphoid views. 2010 [employer]- All Rights Reserved Chest X-Ray 05/05/17 03:23 IMPRESSION: No acute cardiopulmonary findings. 2010 [employer]- All Rights Reserved Guidance Fluoroscopy 05/12/17 00:00 IMPRESSION: SUCCESSFUL PLACEMENT OF A 5 FR DUAL LUMEN 35 CM PICC IN THE RIGHT BASILIC VEIN. Interventional Vascular Procedure 05/12/17 00:00 IMPRESSION: SUCCESSFUL PLACEMENT OF A 5 FR DUAL LUMEN 35 CM PICC IN THE RIGHT BASILIC VEIN. PICC Line Insertion 05/12/17 00:00 IMPRESSION: SUCCESSFUL PLACEMENT OF A 5 FR DUAL LUMEN 35 CM PICC IN THE RIGHT BASILIC VEIN. Knee X-Ray 05/26/17 00:00 IMPRESSION: Large suprapatellar knee joint effusion with air bubbles from septic joint. Soft tissue air bubbles in the medial right upper calf worrisome for infection with gas-forming organism. Lower Extremity MRI 05/26/17 00:00 IMPRESSION: No osteomyelitis. Septic joint containing fluid and gas and there is extensive fluid in the popliteal fossa communicating with the joint with both fluid and gas. Measures 13 cm. Mild edema in adjacent muscles. Tibia/Fibula X-Ray 05/26/17 00:00 IMPRESSION: LARGE JOINT EFFUSION. MULTIPLE BUBBLES OF GAS IN THE SOFT TISSUES OF THE PROXIMAL CALF. Assessment & Plan - Diagnosis (1) Septic arthritis of knee, right Qualifiers: Septic arthritis organism: due to unspecified organism Qualified Code(s): M00.9 - Pyogenic arthritis, unspecified Is this a current diagnosis for this admission?: Yes Plan: New onset as of 11 PM. 05/26: Xray with effusion and gas bubbles. Tib/Fib Xray : knee effusion with gas bubbles in calf. MRI Right Lower with septic joint containing fluid and gas with extensive fluid in the popliteal fossa communicating with the joint with both fluid and gas. Body fluid cultures with > 500,000 WBCs. NGTD. Taken to the OR urgently by ortho on 05/26 with cultures NGTD , fungal and AFB cx pending - Repeat blood cultures NGTD at 4 days - Has been on IV Clindamycin 600mg q8 hours since 05/26/16 --> given negative cultures, should narrow antibiotics coverage. - Called [facility], spoke with fellow, reviewed clinical history, imaging, and culture data. He recommended to add gram negative coverage "because I need more data and this is the treatment for necrotizing fascitis". - Given clinical improvement, no fevers, and decreasing WBC, will discontinue Vanc and Clindamycin --> added Merepenem IV which will treat MSSA bacteremia and has gram negative/anerobic coverage - If patient develops fevers, worsening WBC, or new symptoms --> PLEASE repeat blood cultures AND add IV Vanc and Clinda Pain control - Added Oxycontin 10mg BID for long acting pain control - For short acting pain control, decreased IV Morphine from 2mg q4 hours to 1mg q4 hours PRN - Given history and potential for abuse of pain medication, will need to taper narcotics as quickly and safely as possible PT - Re-consult PT on 05/29 for evaluation, only partial weight bearing allowed (2) Endocarditis of tricuspid valve Is this a current diagnosis for this admission?: Yes Plan: 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 See #1 for additional information - PICC In place - Previously discussed with social work 05/24/17. Would be possible to discharge patient to home but would have to return to every day for hospital for IV infusion. Also would need to be on IV antibiotic that can be scheduled daily. Hold off for now (3) Hyponatremia Is this a current diagnosis for this admission?: Yes Plan: Chronic, asymptomatic (4) Normocytic anemia Is this a current diagnosis for this admission?: Yes Plan: Hg stable. (5) Constipation due to opioid therapy Is this a current diagnosis for this admission?: Yes Plan: Resolved. Had large BM on 05/28 - Continue bowel regimen with colace and miralax scheduled and milk of mag PRN (6) Sedated due to multiple medications Is this a current diagnosis for this admission?: Yes Plan: Multiple sedating medication noted, particularly with opioids ordered - Discontinued Elavil and Cymbalta today - Continue Gabapentin. Lots of room to increase dose if needed - Time Time Spent with patient: 35 or more minutes
[2017-05-29] MEDS ORDERED: MEROPENEM 1 GM VIAL IV SCH (18:00)
--- NOTE | 2017-05-29 19:53 | PDOC PROGRESS REPORT ---
Subjective Subjective:: Patient lying in bed comfortably. According to nurse does complain of occasional discomfort. Denies fever chills or sweats. No issues postoperatively. Reason For Visit: SEPSIS ENDOCARDITIS, POLYARTHRITIS, IV DRUG ABUSE Physical Exam Vital Signs: Temp Pulse Resp BP Pulse Ox 98.7 F 106 H 18 91/49 L 98 05/29/17 10:53 05/29/17 14:00 05/29/17 10:53 05/29/17 10:53 05/29/17 10:53 Pulse Oximeter Continuous Start: 05/05/17 11: 26 Freq: RTQ4 Status: Complete Document 05/11/17 08:00 JDR (Rec: 05/11/17 11:14 JDR [email or web address]) Pulse Oximetry Assessment Oxygen Saturation (92-100) 98 Oxygen Flow Rate (L/min) 2 Oxygen Delivery Method Nasal Cannula Equipment Usage Equipment in Use Continuous SpO2 Machine # 8 Intake & Output 05/28/17 05/29/17 05/30/17 06:59 06:59 06:59 Intake Total 3108 2947 738 Output Total 2805 925 2240 Balance 303 2022 -1502 Weight 66.7 kg Musculoskeletal exam: PRESENT: other - Right lower extremity: Dressing clean/dry /intact. Serosanguineous drainage within the drain site. Patient continues to have pain with terminal flexion and extension of the knee. No tracking erythema proximally or distally. Compartments soft and compressible. Results Laboratory Results: 05/29/17 05:30 05/29/17 05:30 05/29/17 05/29/17 05:30 05:30 WBC 21.4 H RBC 2.86 L Hgb 8.2 L Hct 24.0 L MCV 84 MCH 28.8 MCHC 34.3 RDW 16.2 H Plt Count 574 H Seg Neutrophils % Not Reportable Lymphocytes % Not Reportable Monocytes % Not Reportable Eosinophils % Not Reportable Basophils % Not Reportable Absolute Neutrophils Not Reportable Absolute Lymphocytes Not Reportable Absolute Monocytes Not Reportable Absolute Eosinophils Not Reportable Absolute Basophils Not Reportable Sodium 125.7 L Potassium 4.6 Chloride 90 L Carbon Dioxide 27 Anion Gap 9 BUN 12 Creatinine 0.49 L Est GFR ( Amer) > 60 Est GFR (Non-Af Amer) > 60 Glucose 146 H Calcium 8.4 01/12/18 12:34 Knee Fluid - Right Gram Stain - Final 05/26/17 12:34 Knee Fluid - Right Body Fluid Culture - Final NO AEROBIC OR ANAEROBIC ORGANISMS RECOVERED Impressions: Head CT 05/05/17 00:00 IMPRESSION: Limited negative study EVIDENCE OF ACUTE STROKE: NO. Lumbar Spine X-Ray 05/05/17 00:00 IMPRESSION: No acute fracture or malalignment. Multilevel disc space loss of height with anterior osteophyte formation Hip X-Ray 05/05/17 03:18 IMPRESSION: No acute findings. 2010 [employer]- All Rights Reserved Wrist X-Ray 05/05/17 03:18 IMPRESSION: No acute findings. Limited scaphoid views. 2010 [employer]- All Rights Reserved Chest X-Ray 05/05/17 03:23 IMPRESSION: No acute cardiopulmonary findings. 2010 [employer]- All Rights Reserved Guidance Fluoroscopy 05/12/17 00:00 IMPRESSION: SUCCESSFUL PLACEMENT OF A 5 FR DUAL LUMEN 35 CM PICC IN THE RIGHT BASILIC VEIN. Interventional Vascular Procedure 05/12/17 00:00 IMPRESSION: SUCCESSFUL PLACEMENT OF A 5 FR DUAL LUMEN 35 CM PICC IN THE RIGHT BASILIC VEIN. PICC Line Insertion 05/12/17 00:00 IMPRESSION: SUCCESSFUL PLACEMENT OF A 5 FR DUAL LUMEN 35 CM PICC IN THE RIGHT BASILIC VEIN. Knee X-Ray 05/26/17 00:00 IMPRESSION: Large suprapatellar knee joint effusion with air bubbles from septic joint. Soft tissue air bubbles in the medial right upper calf worrisome for infection with gas-forming organism. Lower Extremity MRI 05/26/17 00:00 IMPRESSION: No osteomyelitis. Septic joint containing fluid and gas and there is extensive fluid in the popliteal fossa communicating with the joint with both fluid and gas. Measures 13 cm. Mild edema in adjacent muscles. Tibia/Fibula X-Ray 05/26/17 00:00 IMPRESSION: LARGE JOINT EFFUSION. MULTIPLE BUBBLES OF GAS IN THE SOFT TISSUES OF THE PROXIMAL CALF. Assessment & Plan - Diagnosis (1) Myalgia Is this a current diagnosis for this admission?: No (2) Septic arthritis of knee, right Qualifiers: Septic arthritis organism: due to unspecified organism Qualified Code(s): M00.9 - Pyogenic arthritis, unspecified Is this a current diagnosis for this admission?: Yes Plan: Status post arthroscopic I&D, I&D right leg 05/27/17 #1 continue IV antibiotics as per hospitalist recommendation. #2 pain control. #3 physical therapy partial weightbearing right lower extremity #4 continue ADA drains until output less than 5 cc
[2017-05-29] MEDS: MEROPENEM 1 GM in NORMAL SALINE 50 ML IV SCH (20:09)
[2017-05-29] MEDS: OXYCODONE HCL SR 10 MG TABLET PO SCH (21:58)
[2017-05-29] MEDS: NORMAL SALINE 10 ML SDV (AFTER EACH USE) IV PRN (21:58)
[2017-05-29] MEDS ORDERED: OXYCODONE HCL IR 5 MG TABLET PO ONE (23:15)
[2017-05-30] MEDS: MEROPENEM 1 GM in NORMAL SALINE 50 ML IV SCH ×3 (01:14→18:43)
[2017-05-30] MEDS: MORPHINE SULFATE 10 MG/ML INJ IV PRN ×5 (01:52→21:50)
[2017-05-30] MEDS: HEPARIN SOD (PORCINE) 5,000 UNIT/ML 1 ML SYRINGE SUBCUT SCH ×3 (05:30→21:47)
[2017-05-30 06:15] LABS: ANION GAP 9 (5-19); BLOOD UREA NITROGEN 11 mg/dL (7-20); CALCIUM 8.6 mg/dL (8.4-10.2); CARBON DIOXIDE 29 mmol/L (22-30); CHLORIDE 89 mmol/L (98-107); GLUCOSE 129 mg/dL (75-110); POTASSIUM 4.4 mmol/L (3.6-5.0); SODIUM 126.8 mmol/L (137-145)
[2017-05-30 06:58] LABS: HEMATOCRIT 24.1 % (37.9-51.0); HEMOGLOBIN 8.3 g/dL (13.5-17.0); MEAN CORPUSCULAR HEMOGLOBIN 28.8 pg (27.0-33.4); MEAN CORPUSCULAR HGB CONC 34.3 g/dL (32.0-36.0); MEAN CORPUSCULAR VOLUME 84 fl (80-97); PLATELET COUNT 596 10^3/uL (150-450); RED BLOOD COUNT 2.88 10^6/uL (4.35-5.55); WHITE BLOOD COUNT 23.3 10^3/uL (4.0-10.5)
[2017-05-30 07:02] LABS: ABSOLUTE LYMPHOCYTES# (MANUAL) 3.3 10^3/uL (0.5-4.7); ABSOLUTE MONOCYTES # (MANUAL) 0.9 10^3/uL (0.1-1.4); ABSOLUTE NEUTROPHILS# (MANUAL) 19.1 10^3/uL (1.7-8.2); BAND NEUTROPHILS % (MANUAL) 2 % (3-5); BASOPHILS % (MANUAL) 0 % (0-2); EOSINOPHILS % (MANUAL) 0 % (0-6); LYMPHOCYTES % (MANUAL) 14 % (13-45); MONOCYTES % (MANUAL) 4 % (3-13); SEGMENTED NEUTROPHILS % (MAN) 80 % (42-78); TOTAL CELLS COUNTED 100
[2017-05-30 07:04] LABS: ANISOCYTOSIS 1+; OVALOCYTES SLIGHT; PLATELET COMMENT INCREASED; POIKILOCYTOSIS SLIGHT; POLYCHROMASIA SLIGHT; SCHISTOCYTES SLIGHT; TOXIC GRANULATION SLIGHT
[2017-05-30] MEDS: METFORMIN HCL 500 MG TABLET PO SCH ×2 (09:00→15:44)
[2017-05-30] MEDS: FERROUS SULFATE 325 MG TABLET PO SCH ×2 (09:00→18:43)
[2017-05-30] MEDS: DOCUSATE SODIUM 100 MG CAPSULE PO SCH ×2 (09:01→18:43)
[2017-05-30] MEDS: GABAPENTIN 300 MG CAPSULE PO SCH ×2 (09:01→21:47)
[2017-05-30] MEDS: POLYETHYLENE GLYCOL 3350 POWDER 17 GM/1 PACKET PO SCH (09:01)
[2017-05-30] MEDS: NORMAL SALINE 10 ML SDV (AFTER EACH USE) IV PRN (09:02)
[2017-05-30] MEDS: NORMAL SALINE 10 ML SDV (SCHEDULED) IV SCH ×2 (09:02→21:55)
[2017-05-30] MEDS: METOPROLOL SUCCINATE 50 MG TAB.SR.24H PO SCH (09:02)
[2017-05-30] MEDS: OXYCODONE HCL SR 10 MG TABLET PO SCH ×2 (10:13→23:28)
--- NOTE | 2017-05-30 13:32 | PDOC PROGRESS REPORT ---
Subjective Progress Note for:: 05/30/17 Subjective:: Complains of knee pain. Reason For Visit: SEPSIS ENDOCARDITIS, POLYARTHRITIS, IV DRUG ABUSE Physical Exam Vital Signs: Temp Pulse Resp BP Pulse Ox 99.4 F 109 H 16 114/63 99 05/30/17 07:15 05/30/17 07:15 05/30/17 07:15 05/30/17 07:15 05/30/17 07:15 Pulse Oximeter Continuous Start: 05/05/17 11: 26 Freq: RTQ4 Status: Complete Document 05/11/17 08:00 JDR (Rec: 05/11/17 11:14 JDR [email or web address]) Pulse Oximetry Assessment Oxygen Saturation (92-100) 98 Oxygen Flow Rate (L/min) 2 Oxygen Delivery Method Nasal Cannula Equipment Usage Equipment in Use Continuous SpO2 Machine # 8 Intake & Output 05/29/17 05/30/17 05/31/17 06:59 06:59 06:59 Intake Total 2947 1658 Output Total 925 3250 Balance 2021 Weight 66.7 kg General appearance: PRESENT: no acute distress Eye exam: PRESENT: conjunctiva pink. ABSENT: scleral icterus Mouth exam: PRESENT: moist, tongue midline Neck exam: ABSENT: JVD Respiratory exam: PRESENT: clear to auscultation antonio. ABSENT: rales, rhonchi, wheezes Cardiovascular exam: PRESENT: RRR, systolic murmur - 2/6 systolic murmur. ABSENT: diastolic murmur, rubs GI/Abdominal exam: PRESENT: normal bowel sounds, soft. ABSENT: distended, guarding, mass, organolmegaly, rebound, tenderness Extremities exam: ABSENT: calf tenderness, clubbing, pedal edema Neurological exam: PRESENT: alert, awake, oriented to person, oriented to place , oriented to time, oriented to situation, CN II-XII grossly intact. ABSENT: motor sensory deficit Psychiatric exam: PRESENT: appropriate affect Skin exam: PRESENT: dry, intact, warm. ABSENT: cyanosis, rash Results Laboratory Results: 05/30/17 05:34 05/30/17 05:34 05/30/17 05/30/17 05:34 05:34 WBC 23.3 H RBC 2.88 L Hgb 8.3 L Hct 24.1 L MCV 84 MCH 28.8 MCHC 34.3 RDW 16.0 H Plt Count 596 H Seg Neutrophils % Not Reportable Lymphocytes % Not Reportable Monocytes % Not Reportable Eosinophils % Not Reportable Basophils % Not Reportable Absolute Neutrophils Not Reportable Absolute Lymphocytes Not Reportable Absolute Monocytes Not Reportable Absolute Eosinophils Not Reportable Absolute Basophils Not Reportable Sodium 126.8 L Potassium 4.4 Chloride 89 L Carbon Dioxide 29 Anion Gap 9 BUN 11 Creatinine 0.54 Est GFR ( Amer) > 60 Est GFR (Non-Af Amer) > 60 Glucose 129 H Calcium 8.6 05/27/17 00:13 Knee - Right Fungal Smear - Final 05/27/17 00:13 Knee - Right Fungal Smear - Final 05/27/17 00:32 Knee - Right Fungal Smear - Final 05/27/17 00:32 Knee - Right Fungal Smear - Final 05/25/17 09:14 Blood Blood Culture - Final NO GROWTH IN 5 DAYS 05/26/17 12:34 Knee Fluid - Right Gram Stain - Final 05/26/17 12:34 Knee Fluid - Right Body Fluid Culture - Final NO AEROBIC OR ANAEROBIC ORGANISMS RECOVERED Impressions: Head CT 05/05/17 00:00 IMPRESSION: Limited negative study EVIDENCE OF ACUTE STROKE: NO. Lumbar Spine X-Ray 05/05/17 00:00 IMPRESSION: No acute fracture or malalignment. Multilevel disc space loss of height with anterior osteophyte formation Hip X-Ray 05/05/17 03:18 IMPRESSION: No acute findings. 2010 [employer]- All Rights Reserved Wrist X-Ray 05/05/17 03:18 IMPRESSION: No acute findings. Limited scaphoid views. 2010 [employer]- All Rights Reserved Chest X-Ray 05/05/17 03:23 IMPRESSION: No acute cardiopulmonary findings. 2010 [employer]- All Rights Reserved Guidance Fluoroscopy 05/12/17 00:00 IMPRESSION: SUCCESSFUL PLACEMENT OF A 5 FR DUAL LUMEN 35 CM PICC IN THE RIGHT BASILIC VEIN. Interventional Vascular Procedure 05/12/17 00:00 IMPRESSION: SUCCESSFUL PLACEMENT OF A 5 FR DUAL LUMEN 35 CM PICC IN THE RIGHT BASILIC VEIN. PICC Line Insertion 05/12/17 00:00 IMPRESSION: SUCCESSFUL PLACEMENT OF A 5 FR DUAL LUMEN 35 CM PICC IN THE RIGHT BASILIC VEIN. Knee X-Ray 05/26/17 00:00 IMPRESSION: Large suprapatellar knee joint effusion with air bubbles from septic joint. Soft tissue air bubbles in the medial right upper calf worrisome for infection with gas-forming organism. Lower Extremity MRI 05/26/17 00:00 IMPRESSION: No osteomyelitis. Septic joint containing fluid and gas and there is extensive fluid in the popliteal fossa communicating with the joint with both fluid and gas. Measures 13 cm. Mild edema in adjacent muscles. Tibia/Fibula X-Ray 05/26/17 00:00 IMPRESSION: LARGE JOINT EFFUSION. MULTIPLE BUBBLES OF GAS IN THE SOFT TISSUES OF THE PROXIMAL CALF. Assessment & Plan - Diagnosis (1) Septic arthritis of knee, right Qualifiers: Septic arthritis organism: due to unspecified organism Qualified Code(s): M00.9 - Pyogenic arthritis, unspecified Is this a current diagnosis for this admission?: Yes Plan: Continue with meropenem (2) Bacteremia Is this a current diagnosis for this admission?: Yes Plan: Patient has endocarditis involving the tricuspid valve. Will need a total of 6 weeks of IV antibiotics from the first negative blood culture. The patient's first negative cultures May 14. His last day of antibiotics would be June 28. He currently has a PICC line in place. Infectious disease was consulted from [facility] during his hospitalization and they recommended continue with his current antibiotics or Ancef, daptomycin, or continuous nafcillin. He has remained on vancomycin. Given his history of drug abuse is not clear whether he would be safe to go home with a PICC line. (3) Acute metabolic encephalopathy Is this a current diagnosis for this admission?: Yes Plan: Resolved. Most likely secondary to substance abuse. (4) Dehydration Is this a current diagnosis for this admission?: Yes Plan: Resolved (5) Hyponatremia Is this a current diagnosis for this admission?: Yes Plan: Stable - Time Time Spent with patient: 25-34 minutes
--- NOTE | 2017-05-30 16:41 | PDOC PROGRESS REPORT ---
Subjective Subjective:: Patient lying in bed comfortably. According to nurse does complain of occasional discomfort. Denies fever chills or sweats. Was able to ambulate partial weightbearing today in therapy. Reason For Visit: SEPSIS ENDOCARDITIS, POLYARTHRITIS, IV DRUG ABUSE Physical Exam Vital Signs: Temp Pulse Resp BP Pulse Ox 97.9 F 95 14 105/62 100 05/30/17 15:41 05/30/17 15:41 05/30/17 15:41 05/30/17 15:41 05/30/17 15:41 Pulse Oximeter Continuous Start: 05/05/17 11: 26 Freq: RTQ4 Status: Complete Document 05/11/17 08:00 JDR (Rec: 05/11/17 11:14 JDR [email or web address]) Pulse Oximetry Assessment Oxygen Saturation (92-100) 98 Oxygen Flow Rate (L/min) 2 Oxygen Delivery Method Nasal Cannula Equipment Usage Equipment in Use Continuous SpO2 Machine # 8 Intake & Output 05/29/17 05/30/17 05/31/17 06:59 06:59 06:59 Intake Total 2947 1658 724 Output Total 925 3250 1300 Balance 2 -5052 -576 Weight 66.7 kg Musculoskeletal exam: PRESENT: other - Right knee: Incisions clean/dry/intact no erythema or drainage. Pain with terminal extension and flexion greater than 90. Serosanguineous drainage and drain #1. No drainage and drain #2 which was removed. No tracking erythema. Compartments soft and compressible Results Laboratory Results: 05/30/17 05:34 05/30/17 05:34 05/30/17 05/30/17 05:34 05:34 WBC 23.3 H RBC 2.88 L Hgb 8.3 L Hct 24.1 L MCV 84 MCH 28.8 MCHC 34.3 RDW 16.0 H Plt Count 596 H Seg Neutrophils % Not Reportable Lymphocytes % Not Reportable Monocytes % Not Reportable Eosinophils % Not Reportable Basophils % Not Reportable Absolute Neutrophils Not Reportable Absolute Lymphocytes Not Reportable Absolute Monocytes Not Reportable Absolute Eosinophils Not Reportable Absolute Basophils Not Reportable Sodium 126.8 L Potassium 4.4 Chloride 89 L Carbon Dioxide 29 Anion Gap 9 BUN 11 Creatinine 0.54 Est GFR ( Amer) > 60 Est GFR (Non-Af Amer) > 60 Glucose 129 H Calcium 8.6 05/25/17 13:25 Blood Blood Culture - Final NO GROWTH IN 5 DAYS 05/27/17 00:13 Knee - Right Fungal Smear - Final 05/27/17 00:13 Knee - Right Fungal Smear - Final 05/27/17 00:32 Knee - Right Fungal Smear - Final 05/27/17 00:32 Knee - Right Fungal Smear - Final 05/25/17 09:14 Blood Blood Culture - Final NO GROWTH IN 5 DAYS 05/26/17 12:34 Knee Fluid - Right Gram Stain - Final 05/26/17 12:34 Knee Fluid - Right Body Fluid Culture - Final NO AEROBIC OR ANAEROBIC ORGANISMS RECOVERED Impressions: Head CT 05/05/17 00:00 IMPRESSION: Limited negative study EVIDENCE OF ACUTE STROKE: NO. Lumbar Spine X-Ray 05/05/17 00:00 IMPRESSION: No acute fracture or malalignment. Multilevel disc space loss of height with anterior osteophyte formation Hip X-Ray 05/05/17 03:18 IMPRESSION: No acute findings. 2010 [employer]- All Rights Reserved Wrist X-Ray 05/05/17 03:18 IMPRESSION: No acute findings. Limited scaphoid views. 2010 [employer]- All Rights Reserved Chest X-Ray 05/05/17 03:23 IMPRESSION: No acute cardiopulmonary findings. 2010 [employer]- All Rights Reserved Guidance Fluoroscopy 05/12/17 00:00 IMPRESSION: SUCCESSFUL PLACEMENT OF A 5 FR DUAL LUMEN 35 CM PICC IN THE RIGHT BASILIC VEIN. Interventional Vascular Procedure 05/12/17 00:00 IMPRESSION: SUCCESSFUL PLACEMENT OF A 5 FR DUAL LUMEN 35 CM PICC IN THE RIGHT BASILIC VEIN. PICC Line Insertion 05/12/17 00:00 IMPRESSION: SUCCESSFUL PLACEMENT OF A 5 FR DUAL LUMEN 35 CM PICC IN THE RIGHT BASILIC VEIN. Knee X-Ray 05/26/17 00:00 IMPRESSION: Large suprapatellar knee joint effusion with air bubbles from septic joint. Soft tissue air bubbles in the medial right upper calf worrisome for infection with gas-forming organism. Lower Extremity MRI 05/26/17 00:00 IMPRESSION: No osteomyelitis. Septic joint containing fluid and gas and there is extensive fluid in the popliteal fossa communicating with the joint with both fluid and gas. Measures 13 cm. Mild edema in adjacent muscles. Tibia/Fibula X-Ray 05/26/17 00:00 IMPRESSION: LARGE JOINT EFFUSION. MULTIPLE BUBBLES OF GAS IN THE SOFT TISSUES OF THE PROXIMAL CALF. Assessment & Plan - Diagnosis (1) Myalgia Is this a current diagnosis for this admission?: No (2) Septic arthritis of knee, right Qualifiers: Septic arthritis organism: due to unspecified organism Qualified Code(s): M00.9 - Pyogenic arthritis, unspecified Is this a current diagnosis for this admission?: Yes Plan: Status post arthroscopic I&D, I&D right leg 05/27/17 #1 continue IV antibiotics as per hospitalist recommendation. #2 pain control. #3 physical therapy partial weightbearing right lower extremity #4 continue ADA drain until output less than 5 cc
[2017-05-31] MEDS: MEROPENEM 1 GM in NORMAL SALINE 50 ML IV SCH ×3 (01:14→17:42)
[2017-05-31 05:18] LABS: HEMATOCRIT 25.7 % (37.9-51.0); HEMOGLOBIN 8.9 g/dL (13.5-17.0); MEAN CORPUSCULAR HEMOGLOBIN 28.8 pg (27.0-33.4); MEAN CORPUSCULAR HGB CONC 34.6 g/dL (32.0-36.0); MEAN CORPUSCULAR VOLUME 83 fl (80-97); PLATELET COUNT 610 10^3/uL (150-450); RED BLOOD COUNT 3.08 10^6/uL (4.35-5.55); RED CELL DISTRIBUTION WIDTH 15.9 % (11.5-14.0); WHITE BLOOD COUNT 22.8 10^3/uL (4.0-10.5)
[2017-05-31 05:35] LABS: ANION GAP 8 (5-19); BLOOD UREA NITROGEN 12 mg/dL (7-20); CALCIUM 8.8 mg/dL (8.4-10.2); CARBON DIOXIDE 29 mmol/L (22-30); CHLORIDE 90 mmol/L (98-107); GLUCOSE 142 mg/dL (75-110); POTASSIUM 4.9 mmol/L (3.6-5.0); SODIUM 126.9 mmol/L (137-145)
[2017-05-31 05:44] LABS: ABSOLUTE LYMPHOCYTES# (MANUAL) 5.2 10^3/uL (0.5-4.7); ABSOLUTE MONOCYTES # (MANUAL) 0.7 10^3/uL (0.1-1.4); ABSOLUTE NEUTROPHILS# (MANUAL) 16.2 10^3/uL (1.7-8.2); BAND NEUTROPHILS % (MANUAL) 4 % (3-5); BASOPHILS % (MANUAL) 0 % (0-2); EOSINOPHILS % (MANUAL) 0 % (0-6); LYMPHOCYTES % (MANUAL) 23 % (13-45); MONOCYTES % (MANUAL) 3 % (3-13); SEGMENTED NEUTROPHILS % (MAN) 64 % (42-78); TOTAL CELLS COUNTED 100
[2017-05-31 05:46] LABS: ANISOCYTOSIS 1+; OVALOCYTES SLIGHT; POIKILOCYTOSIS 1+; TOXIC GRANULATION 2+
[2017-05-31 05:47] LABS: PLATELET COMMENT ADEQUATE; PLATELET LARGE PRESENT; SCHISTOCYTES 1+; TEAR DROP CELLS SLIGHT
[2017-05-31 05:49] LABS: IMMATURE MONONUCLEAR% (MANUAL) 3 % (0); METAMYELOCYTES % (MANUAL) 2 % (0); PROMYELOCYTES % (MANUAL) 1 % (0)
[2017-05-31] MEDS: HEPARIN SOD (PORCINE) 5,000 UNIT/ML 1 ML SYRINGE SUBCUT SCH ×3 (05:49→22:38)
[2017-05-31] MEDS: MORPHINE SULFATE 10 MG/ML INJ IV PRN ×3 (06:30→18:43)
[2017-05-31] MEDS: METFORMIN HCL 500 MG TABLET PO SCH ×2 (07:57→15:21)
[2017-05-31] MEDS: OXYCODONE HCL SR 10 MG TABLET PO SCH ×2 (10:09→22:46)
[2017-05-31] MEDS: METOPROLOL SUCCINATE 50 MG TAB.SR.24H PO SCH (10:10)
[2017-05-31] MEDS: POLYETHYLENE GLYCOL 3350 POWDER 17 GM/1 PACKET PO SCH (10:10)
[2017-05-31] MEDS: GABAPENTIN 300 MG CAPSULE PO SCH ×2 (10:10→22:46)
[2017-05-31] MEDS: DOCUSATE SODIUM 100 MG CAPSULE PO SCH ×2 (10:11→17:42)
[2017-05-31] MEDS: NORMAL SALINE 10 ML SDV (SCHEDULED) IV SCH ×2 (10:11→22:47)
[2017-05-31] MEDS: FERROUS SULFATE 325 MG TABLET PO SCH ×2 (10:25→17:42)
[2017-05-31 12:08] LABS: PATH REVIEW PATHOLOGIST REVIEWED
--- NOTE | 2017-05-31 12:26 | PDOC PROGRESS REPORT ---
Subjective Progress Note for:: 05/31/17 Subjective:: Complains of knee pain. Reason For Visit: SEPSIS ENDOCARDITIS, POLYARTHRITIS, IV DRUG ABUSE Physical Exam Vital Signs: Temp Pulse Resp BP Pulse Ox 99.3 F 102 H 17 99/56 L 96 05/31/17 11:31 05/31/17 11:31 05/31/17 11:31 05/31/17 11:31 05/31/17 11:31 Pulse Oximeter Continuous Start: 05/05/17 11: 26 Freq: RTQ4 Status: Complete Document 05/11/17 08:00 JDR (Rec: 05/11/17 11:14 JDR [email or web address]) Pulse Oximetry Assessment Oxygen Saturation (92-100) 98 Oxygen Flow Rate (L/min) 2 Oxygen Delivery Method Nasal Cannula Equipment Usage Equipment in Use Continuous SpO2 Machine # 8 Intake & Output 05/30/17 05/31/17 06/01/17 06:59 06:59 06:59 Intake Total 1658 2500 Output Total 3250 2445 Balance -1592 55 General appearance: PRESENT: no acute distress Eye exam: PRESENT: conjunctiva pink. ABSENT: scleral icterus Mouth exam: PRESENT: moist, tongue midline Neck exam: ABSENT: carotid bruit, JVD, lymphadenopathy, thyromegaly Respiratory exam: PRESENT: clear to auscultation antonio. ABSENT: rales, rhonchi, wheezes Cardiovascular exam: PRESENT: RRR, systolic murmur - 2/6 systolic murmur. ABSENT: diastolic murmur, rubs GI/Abdominal exam: PRESENT: normal bowel sounds, soft. ABSENT: distended, guarding, mass, organolmegaly, rebound, tenderness Extremities exam: ABSENT: calf tenderness, clubbing, pedal edema Neurological exam: PRESENT: alert, awake, oriented to person, oriented to place , oriented to time, oriented to situation, CN II-XII grossly intact. ABSENT: motor sensory deficit Psychiatric exam: PRESENT: appropriate affect Skin exam: PRESENT: dry, intact, warm. ABSENT: cyanosis, rash Results Laboratory Results: 05/31/17 04:49 05/31/17 04:49 05/31/17 05/31/17 04:49 04:49 WBC 22.8 H RBC 3.08 L Hgb 8.9 L Hct 25.7 L MCV 83 MCH 28.8 MCHC 34.6 RDW 15.9 H Plt Count 610 H Seg Neutrophils % Not Reportable Lymphocytes % Not Reportable Monocytes % Not Reportable Eosinophils % Not Reportable Basophils % Not Reportable Absolute Neutrophils Not Reportable Absolute Lymphocytes Not Reportable Absolute Monocytes Not Reportable Absolute Eosinophils Not Reportable Absolute Basophils Not Reportable Sodium 126.9 L Potassium 4.9 Chloride 90 L Carbon Dioxide 29 Anion Gap 8 BUN 12 Creatinine 0.46 L Est GFR ( Amer) > 60 Est GFR (Non-Af Amer) > 60 Glucose 142 H Calcium 8.8 05/27/17 00:13 Knee Fluid - Right Gram Stain - Final 05/27/17 00:13 Knee Fluid - Right Body Fluid Culture - Final NO AEROBIC OR ANAEROBIC ORGANISMS RECOVERED 05/27/17 00:32 Knee Fluid - Right Gram Stain - Final 05/27/17 00:32 Knee Fluid - Right Body Fluid Culture - Final NO AEROBIC OR ANAEROBIC ORGANISMS RECOVERED 05/25/17 13:25 Blood Blood Culture - Final NO GROWTH IN 5 DAYS 05/27/17 00:13 Knee - Right Fungal Smear - Final 05/27/17 00:13 Knee - Right Fungal Smear - Final 05/27/17 00:32 Knee - Right Fungal Smear - Final 05/27/17 00:32 Knee - Right Fungal Smear - Final 05/25/17 09:14 Blood Blood Culture - Final NO GROWTH IN 5 DAYS Impressions: Head CT 05/05/17 00:00 IMPRESSION: Limited negative study EVIDENCE OF ACUTE STROKE: NO. Lumbar Spine X-Ray 05/05/17 00:00 IMPRESSION: No acute fracture or malalignment. Multilevel disc space loss of height with anterior osteophyte formation Hip X-Ray 05/05/17 03:18 IMPRESSION: No acute findings. 2010 [employer]- All Rights Reserved Wrist X-Ray 05/05/17 03:18 IMPRESSION: No acute findings. Limited scaphoid views. 2010 [employer]- All Rights Reserved Chest X-Ray 05/05/17 03:23 IMPRESSION: No acute cardiopulmonary findings. 2010 [employer]- All Rights Reserved Guidance Fluoroscopy 05/12/17 00:00 IMPRESSION: SUCCESSFUL PLACEMENT OF A 5 FR DUAL LUMEN 35 CM PICC IN THE RIGHT BASILIC VEIN. Interventional Vascular Procedure 05/12/17 00:00 IMPRESSION: SUCCESSFUL PLACEMENT OF A 5 FR DUAL LUMEN 35 CM PICC IN THE RIGHT BASILIC VEIN. PICC Line Insertion 05/12/17 00:00 IMPRESSION: SUCCESSFUL PLACEMENT OF A 5 FR DUAL LUMEN 35 CM PICC IN THE RIGHT BASILIC VEIN. Knee X-Ray 05/26/17 00:00 IMPRESSION: Large suprapatellar knee joint effusion with air bubbles from septic joint. Soft tissue air bubbles in the medial right upper calf worrisome for infection with gas-forming organism. Lower Extremity MRI 05/26/17 00:00 IMPRESSION: No osteomyelitis. Septic joint containing fluid and gas and there is extensive fluid in the popliteal fossa communicating with the joint with both fluid and gas. Measures 13 cm. Mild edema in adjacent muscles. Tibia/Fibula X-Ray 05/26/17 00:00 IMPRESSION: LARGE JOINT EFFUSION. MULTIPLE BUBBLES OF GAS IN THE SOFT TISSUES OF THE PROXIMAL CALF. Assessment & Plan - Diagnosis (1) Septic arthritis of knee, right Qualifiers: Septic arthritis organism: due to unspecified organism Qualified Code(s): M00.9 - Pyogenic arthritis, unspecified Is this a current diagnosis for this admission?: Yes Plan: Continue with meropenem (2) Bacteremia Is this a current diagnosis for this admission?: Yes Plan: Patient has endocarditis involving the tricuspid valve. Will need a total of 6 weeks of IV antibiotics from the first negative blood culture. The patient's first negative cultures May 14. His last day of antibiotics would be June 28. The patient is on meropenem. It was changed to meropenem because of the septic arthritis. (3) Acute metabolic encephalopathy Is this a current diagnosis for this admission?: Yes Plan: Resolved. Most likely secondary to substance abuse. (4) Dehydration Is this a current diagnosis for this admission?: Yes Plan: Resolved (5) Hyponatremia Is this a current diagnosis for this admission?: Yes Plan: Stable - Time Time Spent with patient: 25-34 minutes - Inpatient Certification Medical Necessity: Need for IV Antibiotics
--- NOTE | 2017-05-31 18:19 | XCELERA REPORT ---
[address] [address] Transthoracic Echocardiogram Report Name: SUSHIL JARA Age: 46 yrs Gender: Male : 1970 Patient Status: Inpatient Patient Location: [address] [place] [address] Study Date: 05/31/2017 01:23 PM Height: 69 in Weight: 147 lb BSA: 1.8 m2 Procedure: A two-dimensional transthoracic echocardiogram with color flow Doppler was performed. Study Quality: Good. Reason For Study: worsening heart murmur, endocarditis History: worsening heart murmur, endocarditis. Ordering Physician: VICENTE LARIOS Performed By: Liliya Bustillos Interpretation Summary The left ventricle is normal in size. There is normal left ventricular wall thickness. LV EF is 60% Left ventricular systolic function is normal. Doppler measurements suggest normal left ventricular diastolic function The left ventricular wall motion is normal. There is no thrombus. There is no ventricular septal defect visualized. The right ventricle is normal in size and function. The right atrium is normal. The left atrial size is normal. The interatrial septum is intact with no evidence for an atrial septal defect. There is no evidence of mitral valve prolapse. There is no vegetation seen on the mitral valve. There is no mitral valve stenosis. There is no mitral regurgitation noted. There is no aortic valvular vegetation. There is no aortic valve stenosis There is no LVOT obstruction. No aortic regurgitation is present. There is no tricuspid stenosis. No tricuspid regurgitation. UNABLE TO CALCULATE RVSP DUE TO LACK OF TR JET. There is no pulmonic valvular stenosis. There is no pulmonic valvular regurgitation. There is no pericardial effusion. MMode/2D Measurements & Calculations RVDd: 3.0 cm LVIDd: 5.2 cm FS: 29.0 % Ao root diam: 3.0 cm IVSd: 0.89 cm LVIDs: 3.7 cm EDV(Teich): 127.0 ml LVPWd: 0.91 cm ESV(Teich): 56.6 ml Ao root area: 7.1 cm2 EF(Teich): 55.4 % Doppler Measurements & Calculations MV E max wen: MV dec slope: Ao V2 max: LV V1 max P.3 cm/sec 131.8 cm/sec 3.7 mmHg MV A max wen: 381.8 cm/sec2 Ao max PG: LV V1 max: 69.9 cm/sec MV dec time: 6.9 mmHg 96.4 cm/sec MV E/A: 0.98 0.18 sec PA V2 max: 113.7 cm/sec PA max P.2 mmHg Left Ventricle The left ventricle is normal in size. There is normal left ventricular wall thickness. LV EF is 60%. Left ventricular systolic function is normal. Doppler measurements suggest normal left ventricular diastolic function. The left ventricular wall motion is normal. There is no thrombus. There is no ventricular septal defect visualized. Right Ventricle The right ventricle is normal in size and function. Atria The right atrium is normal. The left atrial size is normal. The interatrial septum is intact with no evidence for an atrial septal defect. Mitral Valve There is no evidence of mitral valve prolapse. There is no vegetation seen on the mitral valve. There is no mitral valve stenosis. There is no mitral regurgitation noted. Aortic Valve There is no aortic valvular vegetation. There is no aortic valve stenosis. There is no LVOT obstruction. No aortic regurgitation is present. Tricuspid Valve There is no tricuspid valve vegetation. There is no tricuspid stenosis. No tricuspid regurgitation. UNABLE TO CALCULATE RVSP DUE TO LACK OF TR JET. Pulmonic Valve There is no pulmonic valvular stenosis. There is no pulmonic valvular regurgitation. Great Vessels The aortic root is normal size. Effusions There is no pericardial effusion. : VICENTE LARIOS > Emilie Bustillos
[2017-05-31] MEDS: ACETAMINOPHEN 325 MG TABLET PO PRN (20:01)
[2017-06-01] MEDS: MEROPENEM 1 GM in NORMAL SALINE 50 ML IV SCH ×3 (02:31→17:13)
[2017-06-01] MEDS: MORPHINE SULFATE 10 MG/ML INJ IV PRN ×4 (02:40→21:40)
[2017-06-01] MEDS: HEPARIN SOD (PORCINE) 5,000 UNIT/ML 1 ML SYRINGE SUBCUT SCH ×3 (06:09→21:45)
[2017-06-01] MEDS: FERROUS SULFATE 325 MG TABLET PO SCH ×2 (08:00→17:13)
[2017-06-01] MEDS: METFORMIN HCL 500 MG TABLET PO SCH ×2 (08:01→15:15)
[2017-06-01] MEDS: METOPROLOL SUCCINATE 50 MG TAB.SR.24H PO SCH (10:54)
[2017-06-01] MEDS: DOCUSATE SODIUM 100 MG CAPSULE PO SCH ×2 (10:54→17:13)
[2017-06-01] MEDS: OXYCODONE HCL SR 10 MG TABLET PO SCH ×2 (10:55→21:44)
[2017-06-01] MEDS: GABAPENTIN 300 MG CAPSULE PO SCH ×2 (10:55→21:43)
[2017-06-01] MEDS: NORMAL SALINE 10 ML SDV (SCHEDULED) IV SCH ×2 (10:56→21:45)
[2017-06-01] MEDS: POLYETHYLENE GLYCOL 3350 POWDER 17 GM/1 PACKET PO SCH (10:57)
--- NOTE | 2017-06-01 12:27 | PDOC PROGRESS REPORT ---
Subjective Progress Note for:: 06/01/17 Subjective:: Complains of knee pain. Reason For Visit: SEPSIS ENDOCARDITIS, POLYARTHRITIS, IV DRUG ABUSE Physical Exam Vital Signs: Temp Pulse Resp BP Pulse Ox 99.7 F 114 H 17 114/60 98 06/01/17 11:05 06/01/17 11:05 06/01/17 11:05 06/01/17 11:05 06/01/17 11:05 Pulse Oximeter Continuous Start: 05/05/17 11: 26 Freq: RTQ4 Status: Complete Document 05/11/17 08:00 JDR (Rec: 05/11/17 11:14 JDR [email or web address]) Pulse Oximetry Assessment Oxygen Saturation (92-100) 98 Oxygen Flow Rate (L/min) 2 Oxygen Delivery Method Nasal Cannula Equipment Usage Equipment in Use Continuous SpO2 Machine # 8 Intake & Output 05/31/17 06/01/17 06/02/17 06:59 06:59 06:59 Intake Total 2500 2162 Output Total 2445 2515 Balance 55 -353 Weight 66.2 kg General appearance: PRESENT: no acute distress Eye exam: PRESENT: conjunctiva pink. ABSENT: scleral icterus Mouth exam: PRESENT: moist, tongue midline Neck exam: ABSENT: JVD Respiratory exam: PRESENT: clear to auscultation antonio. ABSENT: rales, rhonchi, wheezes Cardiovascular exam: PRESENT: RRR. ABSENT: diastolic murmur, rubs, systolic murmur GI/Abdominal exam: PRESENT: normal bowel sounds, soft. ABSENT: distended, guarding, mass, organolmegaly, rebound, tenderness Extremities exam: ABSENT: calf tenderness, clubbing, pedal edema Neurological exam: PRESENT: alert, awake, oriented to person, oriented to place , oriented to time, oriented to situation, CN II-XII grossly intact. ABSENT: motor sensory deficit Psychiatric exam: PRESENT: appropriate affect Skin exam: PRESENT: dry, intact, warm. ABSENT: cyanosis, rash Results Laboratory Results: 05/31/17 04:49 05/31/17 04:49 05/27/17 00:13 Knee - Right AFB Smear Concentration - Final 05/27/17 00:13 Knee - Right Acid Fast Bacilli Smear - Final 05/27/17 00:32 Knee - Right AFB Smear Concentration - Final 05/27/17 00:32 Knee - Right Acid Fast Bacilli Smear - Final 05/27/17 00:13 Knee Fluid - Right Gram Stain - Final 05/27/17 00:13 Knee Fluid - Right Body Fluid Culture - Final NO AEROBIC OR ANAEROBIC ORGANISMS RECOVERED 05/27/17 00:32 Knee Fluid - Right Gram Stain - Final 05/27/17 00:32 Knee Fluid - Right Body Fluid Culture - Final NO AEROBIC OR ANAEROBIC ORGANISMS RECOVERED Impressions: Head CT 05/05/17 00:00 IMPRESSION: Limited negative study EVIDENCE OF ACUTE STROKE: NO. Lumbar Spine X-Ray 05/05/17 00:00 IMPRESSION: No acute fracture or malalignment. Multilevel disc space loss of height with anterior osteophyte formation Hip X-Ray 05/05/17 03:18 IMPRESSION: No acute findings. 2010 [employer]- All Rights Reserved Wrist X-Ray 05/05/17 03:18 IMPRESSION: No acute findings. Limited scaphoid views. 2010 [employer]- All Rights Reserved Chest X-Ray 05/05/17 03:23 IMPRESSION: No acute cardiopulmonary findings. 2010 [employer]- All Rights Reserved Guidance Fluoroscopy 05/12/17 00:00 IMPRESSION: SUCCESSFUL PLACEMENT OF A 5 FR DUAL LUMEN 35 CM PICC IN THE RIGHT BASILIC VEIN. Interventional Vascular Procedure 05/12/17 00:00 IMPRESSION: SUCCESSFUL PLACEMENT OF A 5 FR DUAL LUMEN 35 CM PICC IN THE RIGHT BASILIC VEIN. PICC Line Insertion 05/12/17 00:00 IMPRESSION: SUCCESSFUL PLACEMENT OF A 5 FR DUAL LUMEN 35 CM PICC IN THE RIGHT BASILIC VEIN. Knee X-Ray 05/26/17 00:00 IMPRESSION: Large suprapatellar knee joint effusion with air bubbles from septic joint. Soft tissue air bubbles in the medial right upper calf worrisome for infection with gas-forming organism. Lower Extremity MRI 05/26/17 00:00 IMPRESSION: No osteomyelitis. Septic joint containing fluid and gas and there is extensive fluid in the popliteal fossa communicating with the joint with both fluid and gas. Measures 13 cm. Mild edema in adjacent muscles. Tibia/Fibula X-Ray 05/26/17 00:00 IMPRESSION: LARGE JOINT EFFUSION. MULTIPLE BUBBLES OF GAS IN THE SOFT TISSUES OF THE PROXIMAL CALF. Assessment & Plan - Diagnosis (1) Septic arthritis of knee, right Qualifiers: Septic arthritis organism: due to unspecified organism Qualified Code(s): M00.9 - Pyogenic arthritis, unspecified Is this a current diagnosis for this admission?: Yes Plan: Continue with meropenem (2) Bacteremia Is this a current diagnosis for this admission?: Yes Plan: Patient has endocarditis involving the tricuspid valve. Will need a total of 6 weeks of IV antibiotics from the first negative blood culture. The patient's first negative cultures May 14. His last day of antibiotics would be June 28. The patient is on meropenem. It was changed to meropenem because of the septic arthritis. (3) Acute metabolic encephalopathy Is this a current diagnosis for this admission?: Yes Plan: Resolved. Most likely secondary to substance abuse. (4) Dehydration Is this a current diagnosis for this admission?: Yes Plan: Resolved (5) Hyponatremia Is this a current diagnosis for this admission?: Yes Plan: Stable - Time Time Spent with patient: 25-34 minutes - Inpatient Certification Medical Necessity: Need for IV Antibiotics
[2017-06-01] MEDS: ACETAMINOPHEN 325 MG TABLET PO PRN (21:44)
[2017-06-02] MEDS: MEROPENEM 1 GM in NORMAL SALINE 50 ML IV SCH ×3 (02:37→17:06)
[2017-06-02] MEDS: MORPHINE SULFATE 10 MG/ML INJ IV PRN ×4 (04:10→23:11)
[2017-06-02] MEDS: HEPARIN SOD (PORCINE) 5,000 UNIT/ML 1 ML SYRINGE SUBCUT SCH ×3 (06:02→21:52)
[2017-06-02 06:39] LABS: HEMATOCRIT 26.4 % (37.9-51.0); MEAN CORPUSCULAR HEMOGLOBIN 28.3 pg (27.0-33.4); MEAN CORPUSCULAR HGB CONC 33.9 g/dL (32.0-36.0); MEAN CORPUSCULAR VOLUME 84 fl (80-97); PLATELET COUNT 580 10^3/uL (150-450); RED BLOOD COUNT 3.17 10^6/uL (4.35-5.55); RED CELL DISTRIBUTION WIDTH 16.1 % (11.5-14.0); WHITE BLOOD COUNT 20.3 10^3/uL (4.0-10.5)
[2017-06-02 06:42] LABS: ANION GAP 8 (5-19); BLOOD UREA NITROGEN 13 mg/dL (7-20); CARBON DIOXIDE 28 mmol/L (22-30); CHLORIDE 94 mmol/L (98-107); GLUCOSE 145 mg/dL (75-110); POTASSIUM 4.6 mmol/L (3.6-5.0); SODIUM 129.8 mmol/L (137-145)
[2017-06-02 06:54] LABS: ABSOLUTE MONOCYTES # (MANUAL) 1.2 10^3/uL (0.1-1.4); ABSOLUTE NEUTROPHILS# (MANUAL) 17.1 10^3/uL (1.7-8.2); BAND NEUTROPHILS % (MANUAL) 2 % (3-5); BASOPHILS % (MANUAL) 0 % (0-2); EOSINOPHILS % (MANUAL) 0 % (0-6); LYMPHOCYTES % (MANUAL) 10 % (13-45); METAMYELOCYTES % (MANUAL) 2 % (0); MONOCYTES % (MANUAL) 6 % (3-13); SEGMENTED NEUTROPHILS % (MAN) 80 % (42-78); TOTAL CELLS COUNTED 100
[2017-06-02 07:00] LABS: ANISOCYTOSIS 1+; OVALOCYTES SLIGHT; PLATELET COMMENT INCREASED; POIKILOCYTOSIS SLIGHT; POLYCHROMASIA SLIGHT; SCHISTOCYTES SLIGHT; TEAR DROP CELLS SLIGHT; TOXIC GRANULATION 1+
[2017-06-02] MEDS: METFORMIN HCL 500 MG TABLET PO SCH ×2 (07:39→15:42)
[2017-06-02] MEDS: METOPROLOL SUCCINATE 50 MG TAB.SR.24H PO SCH (10:24)
[2017-06-02] MEDS: GABAPENTIN 300 MG CAPSULE PO SCH ×2 (10:24→21:51)
[2017-06-02] MEDS: NORMAL SALINE 10 ML SDV (SCHEDULED) IV SCH ×2 (10:24→21:51)
[2017-06-02] MEDS: FERROUS SULFATE 325 MG TABLET PO SCH ×2 (10:24→17:06)
[2017-06-02] MEDS: OXYCODONE HCL SR 10 MG TABLET PO SCH ×2 (10:25→21:51)
[2017-06-02] MEDS: DOCUSATE SODIUM 100 MG CAPSULE PO SCH ×2 (10:25→17:05)
[2017-06-02] MEDS: POLYETHYLENE GLYCOL 3350 POWDER 17 GM/1 PACKET PO SCH (10:26)
--- NOTE | 2017-06-02 12:13 | PDOC PROGRESS REPORT ---
Subjective Progress Note for:: 06/02/17 Subjective:: Complains of knee pain. Reason For Visit: SEPSIS ENDOCARDITIS, POLYARTHRITIS, IV DRUG ABUSE Physical Exam Vital Signs: Temp Pulse Resp BP Pulse Ox 98.9 F 106 H 17 103/52 L 100 06/02/17 07:08 06/02/17 07:08 06/02/17 07:08 06/02/17 07:08 06/02/17 07:08 Pulse Oximeter Continuous Start: 05/05/17 11: 26 Freq: RTQ4 Status: Complete Document 05/11/17 08:00 JDR (Rec: 05/11/17 11:14 JDR [email or web address]) Pulse Oximetry Assessment Oxygen Saturation (92-100) 98 Oxygen Flow Rate (L/min) 2 Oxygen Delivery Method Nasal Cannula Equipment Usage Equipment in Use Continuous SpO2 Machine # 8 Intake & Output 06/01/17 06/02/17 06/03/17 06:59 06:59 06:59 Intake Total 2162 1747 Output Total 3117 0000 Balance -353 -73 Weight 66.2 kg General appearance: PRESENT: no acute distress Eye exam: PRESENT: conjunctiva pink. ABSENT: scleral icterus Ear exam: PRESENT: normal external ear exam Neck exam: ABSENT: JVD Respiratory exam: PRESENT: clear to auscultation antonio. ABSENT: rales, rhonchi, wheezes Cardiovascular exam: PRESENT: RRR. ABSENT: diastolic murmur, rubs, systolic murmur GI/Abdominal exam: PRESENT: normal bowel sounds, soft. ABSENT: distended, guarding, mass, organolmegaly, rebound, tenderness Extremities exam: PRESENT: other. ABSENT: calf tenderness, clubbing, pedal edema Neurological exam: PRESENT: alert - Drain in place in the right knee, awake, oriented to person, oriented to place, oriented to time, oriented to situation, CN II-XII grossly intact. ABSENT: motor sensory deficit Psychiatric exam: PRESENT: flat affect Skin exam: PRESENT: other - Right knee with a surgical drain and dressing in place Results Laboratory Results: 06/02/17 06:00 06/02/17 06:00 06/02/17 06/02/17 06:00 06:00 WBC 20.3 H RBC 3.17 L Hgb 9.0 L Hct 26.4 L MCV 84 MCH 28.3 MCHC 33.9 RDW 16.1 H Plt Count 580 H Seg Neutrophils % Not Reportable Lymphocytes % Not Reportable Monocytes % Not Reportable Eosinophils % Not Reportable Basophils % Not Reportable Absolute Neutrophils Not Reportable Absolute Lymphocytes Not Reportable Absolute Monocytes Not Reportable Absolute Eosinophils Not Reportable Absolute Basophils Not Reportable Sodium 129.8 L Potassium 4.6 Chloride 94 L Carbon Dioxide 28 Anion Gap 8 BUN 13 Creatinine 0.43 L Est GFR ( Amer) > 60 Est GFR (Non-Af Amer) > 60 Glucose 145 H Calcium 9.0 Impressions: Head CT 05/05/17 00:00 IMPRESSION: Limited negative study EVIDENCE OF ACUTE STROKE: NO. Lumbar Spine X-Ray 05/05/17 00:00 IMPRESSION: No acute fracture or malalignment. Multilevel disc space loss of height with anterior osteophyte formation Hip X-Ray 05/05/17 03:18 IMPRESSION: No acute findings. 2010 [employer]- All Rights Reserved Wrist X-Ray 05/05/17 03:18 IMPRESSION: No acute findings. Limited scaphoid views. 2010 [employer]- All Rights Reserved Chest X-Ray 05/05/17 03:23 IMPRESSION: No acute cardiopulmonary findings. 2010 [employer]- All Rights Reserved Guidance Fluoroscopy 05/12/17 00:00 IMPRESSION: SUCCESSFUL PLACEMENT OF A 5 FR DUAL LUMEN 35 CM PICC IN THE RIGHT BASILIC VEIN. Interventional Vascular Procedure 05/12/17 00:00 IMPRESSION: SUCCESSFUL PLACEMENT OF A 5 FR DUAL LUMEN 35 CM PICC IN THE RIGHT BASILIC VEIN. PICC Line Insertion 05/12/17 00:00 IMPRESSION: SUCCESSFUL PLACEMENT OF A 5 FR DUAL LUMEN 35 CM PICC IN THE RIGHT BASILIC VEIN. Knee X-Ray 05/26/17 00:00 IMPRESSION: Large suprapatellar knee joint effusion with air bubbles from septic joint. Soft tissue air bubbles in the medial right upper calf worrisome for infection with gas-forming organism. Lower Extremity MRI 05/26/17 00:00 IMPRESSION: No osteomyelitis. Septic joint containing fluid and gas and there is extensive fluid in the popliteal fossa communicating with the joint with both fluid and gas. Measures 13 cm. Mild edema in adjacent muscles. Tibia/Fibula X-Ray 05/26/17 00:00 IMPRESSION: LARGE JOINT EFFUSION. MULTIPLE BUBBLES OF GAS IN THE SOFT TISSUES OF THE PROXIMAL CALF. Assessment & Plan - Diagnosis (1) Septic arthritis of knee, right Qualifiers: Septic arthritis organism: due to unspecified organism Qualified Code(s): M00.9 - Pyogenic arthritis, unspecified Is this a current diagnosis for this admission?: Yes Plan: Continue with meropenem (2) Bacteremia Is this a current diagnosis for this admission?: Yes Plan: Patient has endocarditis involving the tricuspid valve. Will need a total of 6 weeks of IV antibiotics from the first negative blood culture. The patient's first negative cultures May 14. His last day of antibiotics would be June 28. The patient is on meropenem. It was changed to meropenem because of the septic arthritis. (3) Acute metabolic encephalopathy Is this a current diagnosis for this admission?: Yes Plan: Resolved. Most likely secondary to substance abuse. (4) Dehydration Is this a current diagnosis for this admission?: Yes Plan: Resolved (5) Hyponatremia Is this a current diagnosis for this admission?: Yes Plan: Stable - Time Time Spent with patient: 25-34 minutes - Inpatient Certification Medical Necessity: Need for IV Antibiotics
--- NOTE | 2017-06-02 12:49 | PDOC PROGRESS REPORT ---
Subjective Progress Note for:: 06/01/17 Subjective:: Patient laying in bed watching TV. Complaining of some pain in his right knee. There is a drain has been changed 3 times a day. Reason For Visit: SEPSIS ENDOCARDITIS, POLYARTHRITIS, IV DRUG ABUSE Physical Exam Vital Signs: Temp Pulse Resp BP Pulse Ox 37.6 C 120 H 17 93/51 L 100 06/02/17 11:28 06/02/17 11:28 06/02/17 11:28 06/02/17 11:28 06/02/17 11:28 Pulse Oximeter Continuous Start: 05/05/17 11: 26 Freq: RTQ4 Status: Complete Document 05/11/17 08:00 JDR (Rec: 05/11/17 11:14 JDR [email or web address]) Pulse Oximetry Assessment Oxygen Saturation (92-100) 98 Oxygen Flow Rate (L/min) 2 Oxygen Delivery Method Nasal Cannula Equipment Usage Equipment in Use Continuous SpO2 Machine # 8 Intake & Output 06/01/17 06/02/17 06/03/17 06:59 06:59 06:59 Intake Total 2162 1747 Output Total 4833 1820 Balance -353 -73 Weight 66.2 kg General appearance: PRESENT: no acute distress Adult Front & Back Image: 1 - Dressing is intact. Drain is in intact and currently has about 20 cc of cloudy fluid. Limited range of motion second the pain. Neuro vascular intact distally Results Laboratory Results: 06/02/17 06:00 06/02/17 06:00 06/02/17 06/02/17 06:00 06:00 WBC 20.3 H RBC 3.17 L Hgb 9.0 L Hct 26.4 L MCV 84 MCH 28.3 MCHC 33.9 RDW 16.1 H Plt Count 580 H Seg Neutrophils % Not Reportable Lymphocytes % Not Reportable Monocytes % Not Reportable Eosinophils % Not Reportable Basophils % Not Reportable Absolute Neutrophils Not Reportable Absolute Lymphocytes Not Reportable Absolute Monocytes Not Reportable Absolute Eosinophils Not Reportable Absolute Basophils Not Reportable Sodium 129.8 L Potassium 4.6 Chloride 94 L Carbon Dioxide 28 Anion Gap 8 BUN 13 Creatinine 0.43 L Est GFR ( Amer) > 60 Est GFR (Non-Af Amer) > 60 Glucose 145 H Calcium 9.0 Impressions: Head CT 05/05/17 00:00 IMPRESSION: Limited negative study EVIDENCE OF ACUTE STROKE: NO. Lumbar Spine X-Ray 05/05/17 00:00 IMPRESSION: No acute fracture or malalignment. Multilevel disc space loss of height with anterior osteophyte formation Hip X-Ray 05/05/17 03:18 IMPRESSION: No acute findings. 2010 [employer]- All Rights Reserved Wrist X-Ray 05/05/17 03:18 IMPRESSION: No acute findings. Limited scaphoid views. 2010 [employer]- All Rights Reserved Chest X-Ray 05/05/17 03:23 IMPRESSION: No acute cardiopulmonary findings. 2010 [employer]- All Rights Reserved Guidance Fluoroscopy 05/12/17 00:00 IMPRESSION: SUCCESSFUL PLACEMENT OF A 5 FR DUAL LUMEN 35 CM PICC IN THE RIGHT BASILIC VEIN. Interventional Vascular Procedure 05/12/17 00:00 IMPRESSION: SUCCESSFUL PLACEMENT OF A 5 FR DUAL LUMEN 35 CM PICC IN THE RIGHT BASILIC VEIN. PICC Line Insertion 05/12/17 00:00 IMPRESSION: SUCCESSFUL PLACEMENT OF A 5 FR DUAL LUMEN 35 CM PICC IN THE RIGHT BASILIC VEIN. Knee X-Ray 05/26/17 00:00 IMPRESSION: Large suprapatellar knee joint effusion with air bubbles from septic joint. Soft tissue air bubbles in the medial right upper calf worrisome for infection with gas-forming organism. Lower Extremity MRI 05/26/17 00:00 IMPRESSION: No osteomyelitis. Septic joint containing fluid and gas and there is extensive fluid in the popliteal fossa communicating with the joint with both fluid and gas. Measures 13 cm. Mild edema in adjacent muscles. Tibia/Fibula X-Ray 05/26/17 00:00 IMPRESSION: LARGE JOINT EFFUSION. MULTIPLE BUBBLES OF GAS IN THE SOFT TISSUES OF THE PROXIMAL CALF. Assessment & Plan - Plan Summary Plan Summary: 46-year-old gentleman status post I&D of the right knee. Patient drain still putting out cloudy fluid. Currently on IV antibiotics (meropenem) We will monitor drainage. Will discuss findings with Dr. Cueto.
--- NOTE | 2017-06-02 13:50 | PDOC PROGRESS REPORT ---
Subjective Subjective:: Patient lying in bed comfortably. According to nurse does complain of increasing discomfort. Denies fever chills or sweats. Was able to ambulate partial weightbearing today in therapy which he feels increased his pain. Reason For Visit: SEPSIS ENDOCARDITIS, POLYARTHRITIS, IV DRUG ABUSE Physical Exam Vital Signs: Temp Pulse Resp BP Pulse Ox 99.7 F 120 H 17 93/51 L 100 06/02/17 11:28 06/02/17 11:28 06/02/17 11:28 06/02/17 11:28 06/02/17 11:28 Pulse Oximeter Continuous Start: 05/05/17 11: 26 Freq: RTQ4 Status: Complete Document 05/11/17 08:00 JDR (Rec: 05/11/17 11:14 JDR [email or web address]) Pulse Oximetry Assessment Oxygen Saturation (92-100) 98 Oxygen Flow Rate (L/min) 2 Oxygen Delivery Method Nasal Cannula Equipment Usage Equipment in Use Continuous SpO2 Machine # 8 Intake & Output 06/01/17 06/02/17 06/03/17 06:59 06:59 06:59 Intake Total 2162 1747 Output Total 2515 1820 40 Balance -353 -73 -40 Weight 66.2 kg Musculoskeletal exam: PRESENT: other - Right knee: No evidence of reaccumulation of effusion. Cloudy drainage remains within the ADA. No pain along the calf no evidence of recurrent fluctuance in this region. Intact plantar flexion/dorsiflexion. Compartments soft and compressible no sign of compartment syndrome. Results Laboratory Results: 06/02/17 06:00 06/02/17 06:00 06/02/17 06/02/17 06:00 06:00 WBC 20.3 H RBC 3.17 L Hgb 9.0 L Hct 26.4 L MCV 84 MCH 28.3 MCHC 33.9 RDW 16.1 H Plt Count 580 H Seg Neutrophils % Not Reportable Lymphocytes % Not Reportable Monocytes % Not Reportable Eosinophils % Not Reportable Basophils % Not Reportable Absolute Neutrophils Not Reportable Absolute Lymphocytes Not Reportable Absolute Monocytes Not Reportable Absolute Eosinophils Not Reportable Absolute Basophils Not Reportable Sodium 129.8 L Potassium 4.6 Chloride 94 L Carbon Dioxide 28 Anion Gap 8 BUN 13 Creatinine 0.43 L Est GFR ( Amer) > 60 Est GFR (Non-Af Amer) > 60 Glucose 145 H Calcium 9.0 Impressions: Head CT 05/05/17 00:00 IMPRESSION: Limited negative study EVIDENCE OF ACUTE STROKE: NO. Lumbar Spine X-Ray 05/05/17 00:00 IMPRESSION: No acute fracture or malalignment. Multilevel disc space loss of height with anterior osteophyte formation Hip X-Ray 05/05/17 03:18 IMPRESSION: No acute findings. 2010 [employer]- All Rights Reserved Wrist X-Ray 05/05/17 03:18 IMPRESSION: No acute findings. Limited scaphoid views. 2010 [employer]- All Rights Reserved Chest X-Ray 05/05/17 03:23 IMPRESSION: No acute cardiopulmonary findings. 2010 [employer]- All Rights Reserved Guidance Fluoroscopy 05/12/17 00:00 IMPRESSION: SUCCESSFUL PLACEMENT OF A 5 FR DUAL LUMEN 35 CM PICC IN THE RIGHT BASILIC VEIN. Interventional Vascular Procedure 05/12/17 00:00 IMPRESSION: SUCCESSFUL PLACEMENT OF A 5 FR DUAL LUMEN 35 CM PICC IN THE RIGHT BASILIC VEIN. PICC Line Insertion 05/12/17 00:00 IMPRESSION: SUCCESSFUL PLACEMENT OF A 5 FR DUAL LUMEN 35 CM PICC IN THE RIGHT BASILIC VEIN. Knee X-Ray 05/26/17 00:00 IMPRESSION: Large suprapatellar knee joint effusion with air bubbles from septic joint. Soft tissue air bubbles in the medial right upper calf worrisome for infection with gas-forming organism. Lower Extremity MRI 05/26/17 00:00 IMPRESSION: No osteomyelitis. Septic joint containing fluid and gas and there is extensive fluid in the popliteal fossa communicating with the joint with both fluid and gas. Measures 13 cm. Mild edema in adjacent muscles. Tibia/Fibula X-Ray 05/26/17 00:00 IMPRESSION: LARGE JOINT EFFUSION. MULTIPLE BUBBLES OF GAS IN THE SOFT TISSUES OF THE PROXIMAL CALF. Assessment & Plan - Diagnosis (1) Myalgia Is this a current diagnosis for this admission?: No (2) Septic arthritis of knee, right Qualifiers: Septic arthritis organism: due to unspecified organism Qualified Code(s): M00.9 - Pyogenic arthritis, unspecified Is this a current diagnosis for this admission?: Yes Plan: Status post arthroscopic I&D, I&D right leg 05/27/17 #1 continue IV meropenem #2 pain control. #3 physical therapy partial weightbearing right lower extremity #4 Patient's ADA drain continues to drain significant amounts of fluid I have ordered a CRP and sed rate to evaluate trend if it continues to trend up patient may require repeat irrigation and debridement will continue to monitor. At this point there is not emergent indication for operative treatment given his maintain ADA drainage of the wound.
[2017-06-03] MEDS: MEROPENEM 1 GM in NORMAL SALINE 50 ML IV SCH ×3 (02:14→18:30)
[2017-06-03] MEDS: HEPARIN SOD (PORCINE) 5,000 UNIT/ML 1 ML SYRINGE SUBCUT SCH ×3 (05:08→21:25)
[2017-06-03] MEDS: MORPHINE SULFATE 10 MG/ML INJ IV PRN ×3 (05:12→18:11)
[2017-06-03] MEDS ORDERED: BACITRACIN INJ 50,000 UNIT VIAL ONE (07:28)
[2017-06-03] MEDS ORDERED: MIDAZOLAM 2 MG/2 ML INJ ONE (07:54)
[2017-06-03] MEDS ORDERED: KETOROLAC TROMETHAMINE 60 MG/2 ML SDV ONE (07:54)
[2017-06-03] MEDS ORDERED: FENTANYL CITRATE INJ/PF 100 MCG/2 ML AMPUL ONE (07:54)
[2017-06-03] MEDS ORDERED: PROPOFOL INJ 200 MG/20 ML VIAL IV ONE (07:55)
[2017-06-03] MEDS ORDERED: ACETAMINOPHEN 100 ML IV ONE (07:55)
[2017-06-03] MEDS ORDERED: ONDANSETRON HCL INJ/PF 4 MG/2 ML SDV ONE (07:55)
--- NOTE | 2017-06-03 08:08 | PDOC PROGRESS REPORT ---
Subjective Subjective:: Patient lying in bed comfortably. According to nurse does complain of increasing discomfort. Denies fever chills or sweats. Was able to ambulate partial weightbearing today in therapy which he feels increased his pain. Reason For Visit: SEPSIS ENDOCARDITIS, POLYARTHRITIS, IV DRUG ABUSE Physical Exam Vital Signs: Temp Pulse Resp BP Pulse Ox 98.4 F 98 17 104/71 100 06/03/17 06:59 06/03/17 06:59 06/03/17 06:59 06/03/17 06:59 06/03/17 06:59 Pulse Oximeter Continuous Start: 05/05/17 11: 26 Freq: RTQ4 Status: Complete Document 05/11/17 08:00 JDR (Rec: 05/11/17 11:14 JDR [email or web address]) Pulse Oximetry Assessment Oxygen Saturation (92-100) 98 Oxygen Flow Rate (L/min) 2 Oxygen Delivery Method Nasal Cannula Equipment Usage Equipment in Use Continuous SpO2 Machine # 8 Intake & Output 06/02/17 06/03/17 06/04/17 06:59 06:59 06:59 Intake Total 1747 1551 Output Total 1820 1425 Balance -73 126 Musculoskeletal exam: PRESENT: other - Right knee: Continues to have cloudy drainage from the ADA drain. No significant effusion. Pain with range of motion. Intact plantar flexion/dorsiflexion. Results Laboratory Results: 06/02/17 06:00 06/02/17 06:00 06/02/17 13:00 C-Reactive Protein 76.6 H Impressions: Head CT 05/05/17 00:00 IMPRESSION: Limited negative study EVIDENCE OF ACUTE STROKE: NO. Lumbar Spine X-Ray 05/05/17 00:00 IMPRESSION: No acute fracture or malalignment. Multilevel disc space loss of height with anterior osteophyte formation Hip X-Ray 05/05/17 03:18 IMPRESSION: No acute findings. 2010 [employer]- All Rights Reserved Wrist X-Ray 05/05/17 03:18 IMPRESSION: No acute findings. Limited scaphoid views. 2010 [employer]- All Rights Reserved Chest X-Ray 05/05/17 03:23 IMPRESSION: No acute cardiopulmonary findings. 2010 [employer]- All Rights Reserved Guidance Fluoroscopy 05/12/17 00:00 IMPRESSION: SUCCESSFUL PLACEMENT OF A 5 FR DUAL LUMEN 35 CM PICC IN THE RIGHT BASILIC VEIN. Interventional Vascular Procedure 05/12/17 00:00 IMPRESSION: SUCCESSFUL PLACEMENT OF A 5 FR DUAL LUMEN 35 CM PICC IN THE RIGHT BASILIC VEIN. PICC Line Insertion 05/12/17 00:00 IMPRESSION: SUCCESSFUL PLACEMENT OF A 5 FR DUAL LUMEN 35 CM PICC IN THE RIGHT BASILIC VEIN. Knee X-Ray 05/26/17 00:00 IMPRESSION: Large suprapatellar knee joint effusion with air bubbles from septic joint. Soft tissue air bubbles in the medial right upper calf worrisome for infection with gas-forming organism. Lower Extremity MRI 05/26/17 00:00 IMPRESSION: No osteomyelitis. Septic joint containing fluid and gas and there is extensive fluid in the popliteal fossa communicating with the joint with both fluid and gas. Measures 13 cm. Mild edema in adjacent muscles. Tibia/Fibula X-Ray 05/26/17 00:00 IMPRESSION: LARGE JOINT EFFUSION. MULTIPLE BUBBLES OF GAS IN THE SOFT TISSUES OF THE PROXIMAL CALF. Assessment & Plan - Diagnosis (1) Myalgia Is this a current diagnosis for this admission?: No (2) Septic arthritis of knee, right Qualifiers: Septic arthritis organism: due to unspecified organism Qualified Code(s): M00.9 - Pyogenic arthritis, unspecified Is this a current diagnosis for this admission?: Yes Plan: Status post arthroscopic I&D, I&D right leg 05/27/17 #1 continue IV meropenem #2 pain control. #3 physical therapy partial weightbearing right lower extremity #4 Patient's ADA drain continues to drain significant amounts of fluid given patient's maintain elevated sed rate and CRP in 1 week after irrigation and debridement we will proceed with repeat irrigation and debridement. Risks and benefits have been explained to the patient risks including neurovascular risk, postoperative pain, postoperative stiffness, posttraumatic arthritis and recurrent infection requiring repeat operative intervention. Patient verbalized understanding consented for the procedure.
[2017-06-03] MEDS ORDERED: MEPERIDINE HCL/PF INJ 25 MG/1 ML DISP.SYRIN IV PRN (08:32)
[2017-06-03] MEDS ORDERED: MORPHINE SULFATE 10 MG/ML INJ IV PRN (08:32)
[2017-06-03] MEDS ORDERED: FENTANYL CITRATE INJ/PF 100 MCG/2 ML AMPUL IV PRN ×3 (08:32)
[2017-06-03] MEDS ORDERED: OXYCODONE-ACETAMINOPHEN 5-325 MG TABLET PO PRN ×2 (08:32)
[2017-06-03] MEDS ORDERED: DIPHENHYDRAMINE HCL 50 MG/ML VIAL IV PRN (08:32)
[2017-06-03] MEDS ORDERED: PROMETHAZINE HCL INJ 25 MG/1 ML VIAL IV PRN ×2 (08:32)
--- NOTE | 2017-06-03 09:05 | Operative Report ---
Operative Report DATE OF SURGERY: 05/27/17 PREOPERATIVE DIAGNOSIS: Septic right knee POSTOPERATIVE DIAGNOSIS: Same OPERATION: #1 Arthroscopic irrigation debridement right knee. #2 irrigation and debridement right leg including muscle and fascia. 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 Over the past 24 hours he is noted increasing pain in his right knee with considerable swelling requiring pain medication. Patient was not having such severe pain prior to the past 24 hours. He does have history of chronic knee pain. Patient had aspiration demonstrating likelihood of septic arthritis along with an MRI that extended into the gastroc. Given the severity and gas-forming bacteria concern of evolving necrotizing fasciitis deep surgical treatment emergent. I discussed risks and benefits and the prognosis of patient's current condition he verbalized understanding consented for the procedure. Procedure In Detail: Patient was seen and evaluated in the preoperative holding area. The Right lower extremity was initialized and marked. Patient receiving meropenem scheduled. Patient was taken back to the operative room where transferred to the operative table and placed under general anesthesia. Once they were adequately anesthetized a nonsterile tourniquet was placed on the lower extremity. A surgical team debriefing was performed ensuring all instrumentation was available, the surgical procedure was discussed with possible concerns reviewed. Patient's drain was removed. The lower extremity was prepped with Betadine and draped in a sterile fashion. A timeout was done identifying correct patient, procedure and extremity everyone in attendance agree with this and verbalized no concerns. The extremity was elevated and the tourniquet was inflated to 350 mmHg. Previous portal sites medial and lateral were utilized. Arthroscope was introduced into the lateral aspect. Inspection demonstrated cloudy appearing fluid no gross purulence this fluid was sent for culture. 6 L of normal saline with bacitracin was irrigated throughout the knee joint. Partial synovectomy was performed along the suprapatellar pouch. No evidence of bone softening or lesion on inspection. 15 Joseph drain was placed through the superior lateral patellar region and secured with nylon. Once complete I turned my attention to the medial incision. Previous medial incision was opened. This area was copiously irrigated there is no evidence of retained abscess or tracking and a distal direction. There was connection with the posterior capsule of the knee. Area was then loosely closed with interrupted 2-0 nylon suture. Wound was dressed Xeroform 4 x 4's and a soft dressing. Sponge counts, instrument counts, needle counts counts were correct. Patient was then awoken from anesthesia. Transferred from the operating room table to the operating room stretcher. There was no intraoperative complications patient tolerated procedure well stable to PACU. Postoperative plan: Patient will continue IV antibiotics. Anticipate continuing drain until less than 10 cc.
[2017-06-03] MEDS ORDERED: HYDROMORPHONE HCL INJ/PF 2 MG/ML AMPULE ONE (09:14)
[2017-06-03] MEDS ORDERED: OXYCODONE HCL SR 10 MG TABLET PO ONE (09:42)
[2017-06-03] MEDS: OXYCODONE HCL SR 10 MG TABLET PO SCH ×2 (09:44→21:26)
[2017-06-03] MEDS: FERROUS SULFATE 325 MG TABLET PO SCH ×2 (10:44→18:06)
[2017-06-03] MEDS: POLYETHYLENE GLYCOL 3350 POWDER 17 GM/1 PACKET PO SCH (10:44)
[2017-06-03] MEDS: DOCUSATE SODIUM 100 MG CAPSULE PO SCH ×2 (10:44→18:06)
[2017-06-03] MEDS: METFORMIN HCL 500 MG TABLET PO SCH ×2 (10:45→18:06)
--- NOTE | 2017-06-03 12:43 | PDOC PROGRESS REPORT ---
Subjective Progress Note for:: 06/03/17 Subjective:: Complains of knee pain. Patient has already been to the operating room today and his knee was irrigated. Reason For Visit: SEPSIS ENDOCARDITIS, POLYARTHRITIS, IV DRUG ABUSE Physical Exam Vital Signs: Temp Pulse Resp BP Pulse Ox 97.6 F 96 18 125/74 99 06/03/17 11:22 06/03/17 11:22 06/03/17 11:22 06/03/17 11:22 06/03/17 11:22 Pulse Oximeter Continuous Start: 05/05/17 11: 26 Freq: RTQ4 Status: Complete Document 05/11/17 08:00 JDR (Rec: 05/11/17 11:14 JDR [email or web address]) Pulse Oximetry Assessment Oxygen Saturation (92-100) 98 Oxygen Flow Rate (L/min) 2 Oxygen Delivery Method Nasal Cannula Equipment Usage Equipment in Use Continuous SpO2 Machine # 8 Intake & Output 06/02/17 06/03/17 06/04/17 06:59 06:59 06:59 Intake Total 1747 1551 6300 Output Total 1820 1425 5910 Balance -73 126 390 General appearance: PRESENT: no acute distress Eye exam: PRESENT: conjunctiva pink. ABSENT: scleral icterus Mouth exam: PRESENT: moist, tongue midline Neck exam: ABSENT: JVD Respiratory exam: PRESENT: clear to auscultation antonio. ABSENT: rales, rhonchi, wheezes Cardiovascular exam: PRESENT: RRR, systolic murmur. ABSENT: diastolic murmur, rubs GI/Abdominal exam: PRESENT: normal bowel sounds, soft. ABSENT: distended, guarding, mass, organolmegaly, rebound, tenderness Extremities exam: PRESENT: other - Dressing in place on the right knee with ADA drain. ABSENT: calf tenderness, clubbing, pedal edema Neurological exam: PRESENT: alert, awake, oriented to person, oriented to place , oriented to time, oriented to situation, CN II-XII grossly intact. ABSENT: motor sensory deficit Psychiatric exam: PRESENT: appropriate affect Skin exam: PRESENT: other - Dressing in place on the right knee. Results Laboratory Results: 06/02/17 06:00 06/02/17 06:00 06/02/17 13:00 C-Reactive Protein 76.6 H Impressions: Head CT 05/05/17 00:00 IMPRESSION: Limited negative study EVIDENCE OF ACUTE STROKE: NO. Lumbar Spine X-Ray 05/05/17 00:00 IMPRESSION: No acute fracture or malalignment. Multilevel disc space loss of height with anterior osteophyte formation Hip X-Ray 05/05/17 03:18 IMPRESSION: No acute findings. 2010 [employer]- All Rights Reserved Wrist X-Ray 05/05/17 03:18 IMPRESSION: No acute findings. Limited scaphoid views. 2010 [employer]- All Rights Reserved Chest X-Ray 05/05/17 03:23 IMPRESSION: No acute cardiopulmonary findings. 2010 [employer]- All Rights Reserved Guidance Fluoroscopy 05/12/17 00:00 IMPRESSION: SUCCESSFUL PLACEMENT OF A 5 FR DUAL LUMEN 35 CM PICC IN THE RIGHT BASILIC VEIN. Interventional Vascular Procedure 05/12/17 00:00 IMPRESSION: SUCCESSFUL PLACEMENT OF A 5 FR DUAL LUMEN 35 CM PICC IN THE RIGHT BASILIC VEIN. PICC Line Insertion 05/12/17 00:00 IMPRESSION: SUCCESSFUL PLACEMENT OF A 5 FR DUAL LUMEN 35 CM PICC IN THE RIGHT BASILIC VEIN. Knee X-Ray 05/26/17 00:00 IMPRESSION: Large suprapatellar knee joint effusion with air bubbles from septic joint. Soft tissue air bubbles in the medial right upper calf worrisome for infection with gas-forming organism. Lower Extremity MRI 05/26/17 00:00 IMPRESSION: No osteomyelitis. Septic joint containing fluid and gas and there is extensive fluid in the popliteal fossa communicating with the joint with both fluid and gas. Measures 13 cm. Mild edema in adjacent muscles. Tibia/Fibula X-Ray 05/26/17 00:00 IMPRESSION: LARGE JOINT EFFUSION. MULTIPLE BUBBLES OF GAS IN THE SOFT TISSUES OF THE PROXIMAL CALF. Assessment & Plan - Diagnosis (1) Septic arthritis of knee, right Qualifiers: Septic arthritis organism: due to unspecified organism Qualified Code(s): M00.9 - Pyogenic arthritis, unspecified Is this a current diagnosis for this admission?: Yes Plan: Continue with meropenem (2) Bacteremia Is this a current diagnosis for this admission?: Yes Plan: Patient has endocarditis involving the tricuspid valve. Will need a total of 6 weeks of IV antibiotics from the first negative blood culture. The patient's first negative cultures May 14. His last day of antibiotics would be June 28. The patient is on meropenem. It was changed to meropenem because of the septic arthritis. (3) Acute metabolic encephalopathy Is this a current diagnosis for this admission?: Yes Plan: Resolved. Most likely secondary to substance abuse. (4) Dehydration Is this a current diagnosis for this admission?: Yes Plan: Resolved (5) Hyponatremia Is this a current diagnosis for this admission?: Yes Plan: Stable - Time Time Spent with patient: 25-34 minutes - Inpatient Certification Medical Necessity: Need for IV Antibiotics
[2017-06-03] MEDS: GABAPENTIN 300 MG CAPSULE PO SCH ×2 (13:36→21:25)
[2017-06-03] MEDS: METOPROLOL SUCCINATE 50 MG TAB.SR.24H PO SCH (13:36)
[2017-06-03] MEDS ORDERED: SUCCINYLCHOLINE CHLORIDE INJ 200 MG/10 ML VIAL ONE (13:58)
[2017-06-03] MEDS: NORMAL SALINE 10 ML SDV (SCHEDULED) IV SCH ×2 (20:56→21:27)
[2017-06-03] MEDS: ACETAMINOPHEN 325 MG TABLET PO PRN (23:29)
[2017-06-04] MEDS: MORPHINE SULFATE 10 MG/ML INJ IV PRN ×4 (00:04→18:53)
[2017-06-04] MEDS: MEROPENEM 1 GM in NORMAL SALINE 50 ML IV SCH ×3 (02:54→17:18)
[2017-06-04 06:38] LABS: HEMATOCRIT 23.6 % (37.9-51.0); HEMOGLOBIN 8.2 g/dL (13.5-17.0); MEAN CORPUSCULAR HEMOGLOBIN 28.4 pg (27.0-33.4); MEAN CORPUSCULAR HGB CONC 34.5 g/dL (32.0-36.0); MEAN CORPUSCULAR VOLUME 82 fl (80-97); PLATELET COUNT 566 10^3/uL (150-450); RED BLOOD COUNT 2.87 10^6/uL (4.35-5.55); RED CELL DISTRIBUTION WIDTH 16.3 % (11.5-14.0); WHITE BLOOD COUNT 23.7 10^3/uL (4.0-10.5)
[2017-06-04 07:10] LABS: ANION GAP 7 (5-19); BLOOD UREA NITROGEN 17 mg/dL (7-20); CALCIUM 8.2 mg/dL (8.4-10.2); CARBON DIOXIDE 27 mmol/L (22-30); CHLORIDE 92 mmol/L (98-107); GLUCOSE 194 mg/dL (75-110); POTASSIUM 4.9 mmol/L (3.6-5.0); SODIUM 126.2 mmol/L (137-145)
[2017-06-04 07:24] LABS: ABSOLUTE LYMPHOCYTES# (MANUAL) 4.3 10^3/uL (0.5-4.7); ABSOLUTE MONOCYTES # (MANUAL) 1.2 10^3/uL (0.1-1.4); BAND NEUTROPHILS % (MANUAL) 2 % (3-5); BASOPHILS % (MANUAL) 0 % (0-2); EOSINOPHILS % (MANUAL) 1 % (0-6); LYMPHOCYTES % (MANUAL) 17 % (13-45); MONOCYTES % (MANUAL) 5 % (3-13); SEGMENTED NEUTROPHILS % (MAN) 74 % (42-78); TOTAL CELLS COUNTED 100
[2017-06-04 07:25] LABS: ANISOCYTOSIS 1+; HYPOCHROMASIA SLIGHT; PLATELET CLUMPS PRESENT; PLATELET COMMENT INCREASED
[2017-06-04] MEDS: METOPROLOL SUCCINATE 50 MG TAB.SR.24H PO SCH (10:47)
[2017-06-04] MEDS: MORPHINE SULFATE SR 30 MG TABLET PO SCH ×2 (10:47→21:31)
[2017-06-04] MEDS: FERROUS SULFATE 325 MG TABLET PO SCH ×2 (10:47→17:18)
[2017-06-04] MEDS: GABAPENTIN 300 MG CAPSULE PO SCH ×2 (10:48→21:31)
[2017-06-04] MEDS: NORMAL SALINE 10 ML SDV (SCHEDULED) IV SCH ×2 (10:48→21:31)
[2017-06-04] MEDS: METFORMIN HCL 500 MG TABLET PO SCH ×2 (10:48→16:21)
[2017-06-04] MEDS: POLYETHYLENE GLYCOL 3350 POWDER 17 GM/1 PACKET PO SCH (10:48)
--- NOTE | 2017-06-04 12:49 | PDOC PROGRESS REPORT ---
Subjective Progress Note for:: 06/04/17 Subjective:: Complains of knee pain. Reason For Visit: SEPSIS ENDOCARDITIS, POLYARTHRITIS, IV DRUG ABUSE Physical Exam Vital Signs: Temp Pulse Resp BP Pulse Ox 99.5 F 108 H 18 113/63 99 06/04/17 11:34 06/04/17 11:34 06/04/17 11:34 06/04/17 11:34 06/04/17 11:34 Pulse Oximeter Continuous Start: 05/05/17 11: 26 Freq: RTQ4 Status: Complete Document 05/11/17 08:00 JDR (Rec: 05/11/17 11:14 JDR [email or web address]) Pulse Oximetry Assessment Oxygen Saturation (92-100) 98 Oxygen Flow Rate (L/min) 2 Oxygen Delivery Method Nasal Cannula Equipment Usage Equipment in Use Continuous SpO2 Machine # 8 Intake & Output 06/03/17 06/04/17 06/05/17 06:59 06:59 06:59 Intake Total 1551 7470 Output Total 1425 6540 30 Balance 126 930 -30 Weight 67.6 kg General appearance: PRESENT: no acute distress Eye exam: PRESENT: conjunctiva pink. ABSENT: scleral icterus Mouth exam: PRESENT: moist, tongue midline Neck exam: ABSENT: JVD Respiratory exam: PRESENT: clear to auscultation antonio. ABSENT: rales, rhonchi, wheezes Cardiovascular exam: PRESENT: RRR. ABSENT: diastolic murmur, rubs, systolic murmur GI/Abdominal exam: PRESENT: normal bowel sounds, soft. ABSENT: distended, guarding, mass, organolmegaly, rebound, tenderness Extremities exam: PRESENT: other - Dressing in place on the right knee.. ABSENT : calf tenderness, clubbing, pedal edema Neurological exam: PRESENT: alert, awake, oriented to person, oriented to place , oriented to time, oriented to situation, CN II-XII grossly intact. ABSENT: motor sensory deficit Psychiatric exam: PRESENT: appropriate affect Skin exam: PRESENT: dry, intact, warm. ABSENT: cyanosis, rash Results Laboratory Results: 06/04/17 06:10 06/04/17 06:10 06/04/17 06/04/17 06:10 06:10 WBC 23.7 H RBC 2.87 L Hgb 8.2 L Hct 23.6 L MCV 82 MCH 28.4 MCHC 34.5 RDW 16.3 H Plt Count 566 H Seg Neutrophils % Not Reportable Lymphocytes % Not Reportable Monocytes % Not Reportable Eosinophils % Not Reportable Basophils % Not Reportable Absolute Neutrophils Not Reportable Absolute Lymphocytes Not Reportable Absolute Monocytes Not Reportable Absolute Eosinophils Not Reportable Absolute Basophils Not Reportable Sodium 126.2 L Potassium 4.9 Chloride 92 L Carbon Dioxide 27 Anion Gap 7 BUN 17 Creatinine 0.49 L Est GFR ( Amer) > 60 Est GFR (Non-Af Amer) > 60 Glucose 194 H Calcium 8.2 L Impressions: Head CT 05/05/17 00:00 IMPRESSION: Limited negative study EVIDENCE OF ACUTE STROKE: NO. Lumbar Spine X-Ray 05/05/17 00:00 IMPRESSION: No acute fracture or malalignment. Multilevel disc space loss of height with anterior osteophyte formation Hip X-Ray 05/05/17 03:18 IMPRESSION: No acute findings. 2010 [employer]- All Rights Reserved Wrist X-Ray 05/05/17 03:18 IMPRESSION: No acute findings. Limited scaphoid views. 2010 [employer]- All Rights Reserved Chest X-Ray 05/05/17 03:23 IMPRESSION: No acute cardiopulmonary findings. 2010 [employer]- All Rights Reserved Guidance Fluoroscopy 05/12/17 00:00 IMPRESSION: SUCCESSFUL PLACEMENT OF A 5 FR DUAL LUMEN 35 CM PICC IN THE RIGHT BASILIC VEIN. Interventional Vascular Procedure 05/12/17 00:00 IMPRESSION: SUCCESSFUL PLACEMENT OF A 5 FR DUAL LUMEN 35 CM PICC IN THE RIGHT BASILIC VEIN. PICC Line Insertion 05/12/17 00:00 IMPRESSION: SUCCESSFUL PLACEMENT OF A 5 FR DUAL LUMEN 35 CM PICC IN THE RIGHT BASILIC VEIN. Knee X-Ray 05/26/17 00:00 IMPRESSION: Large suprapatellar knee joint effusion with air bubbles from septic joint. Soft tissue air bubbles in the medial right upper calf worrisome for infection with gas-forming organism. Lower Extremity MRI 05/26/17 00:00 IMPRESSION: No osteomyelitis. Septic joint containing fluid and gas and there is extensive fluid in the popliteal fossa communicating with the joint with both fluid and gas. Measures 13 cm. Mild edema in adjacent muscles. Tibia/Fibula X-Ray 05/26/17 00:00 IMPRESSION: LARGE JOINT EFFUSION. MULTIPLE BUBBLES OF GAS IN THE SOFT TISSUES OF THE PROXIMAL CALF. Assessment & Plan - Diagnosis (1) Septic arthritis of knee, right Qualifiers: Septic arthritis organism: due to unspecified organism Qualified Code(s): M00.9 - Pyogenic arthritis, unspecified Is this a current diagnosis for this admission?: Yes Plan: Continue with meropenem. The patient continues to have severe pain. Will start on MS Contin given that he is requiring frequent doses of morphine. (2) Bacteremia Is this a current diagnosis for this admission?: Yes Plan: Patient has endocarditis involving the tricuspid valve. Will need a total of 6 weeks of IV antibiotics from the first negative blood culture. The patient's first negative cultures May 14. His last day of antibiotics would be June 28. The patient is on meropenem. It was changed to meropenem because of the septic arthritis. (3) Acute metabolic encephalopathy Is this a current diagnosis for this admission?: Yes Plan: Resolved. Most likely secondary to substance abuse. (4) Dehydration Is this a current diagnosis for this admission?: Yes Plan: Resolved (5) Hyponatremia Is this a current diagnosis for this admission?: Yes Plan: Stable - Time Time Spent with patient: 25-34 minutes - Inpatient Certification Medical Necessity: Need for IV Antibiotics
[2017-06-05] MEDS: MORPHINE SULFATE 10 MG/ML INJ IV PRN ×4 (00:55→21:50)
[2017-06-05] MEDS: MEROPENEM 1 GM in NORMAL SALINE 50 ML IV SCH ×3 (00:55→17:40)
[2017-06-05 06:28] LABS: ABSOLUTE BASOPHILS # (AUTO) 0.1 10^3/uL (0.0-0.2); ABSOLUTE EOSINOPHILS # (AUTO) 0.1 10^3/uL (0.0-0.6); ABSOLUTE LYMPHOCYTES (AUTO) 4.7 10^3/uL (0.5-4.7); ABSOLUTE MONOCYTES (AUTO) 1.3 10^3/uL (0.1-1.4); BASOPHILS % (AUTO) 0.5 % (0-2); EOSINOPHILS % (AUTO) 0.6 % (0-6); HEMATOCRIT 21.6 % (37.9-51.0); LYMPHOCYTES % (AUTO) 25.9 % (13-45); MEAN CORPUSCULAR HEMOGLOBIN 27.6 pg (27.0-33.4); MEAN CORPUSCULAR HGB CONC 33.5 g/dL (32.0-36.0); MEAN CORPUSCULAR VOLUME 83 fl (80-97); MONOCYTES % (AUTO) 6.9 % (3-13); PLATELET COUNT 495 10^3/uL (150-450); RED BLOOD COUNT 2.62 10^6/uL (4.35-5.55); RED CELL DISTRIBUTION WIDTH 16.6 % (11.5-14.0); SEGMENTED NEUTROPHILS % (AUTO) 66.1 % (42-78); TOTAL CELLS COUNTED % (AUTO) 100 %; WHITE BLOOD COUNT 18.2 10^3/uL (4.0-10.5)
[2017-06-05 06:36] LABS: HEMOGLOBIN 7.2 g/dL (13.5-17.0)
[2017-06-05 06:47] LABS: ANION GAP 8 (5-19); BLOOD UREA NITROGEN 11 mg/dL (7-20); CALCIUM 8.2 mg/dL (8.4-10.2); CARBON DIOXIDE 30 mmol/L (22-30); CHLORIDE 91 mmol/L (98-107); GLUCOSE 128 mg/dL (75-110); POTASSIUM 4.3 mmol/L (3.6-5.0); SODIUM 128.8 mmol/L (137-145)
[2017-06-05 07:24] LABS: RETICULOCYTE COUNT (AUTO) 3.39 % (0.66-2.85)
[2017-06-05 07:30] LABS: IRON(TIBC) 12.3 ug/dL (49-181)
[2017-06-05] MEDS: FERROUS SULFATE 325 MG TABLET PO SCH ×2 (08:27→17:40)
[2017-06-05] MEDS: METFORMIN HCL 500 MG TABLET PO SCH ×2 (08:27→15:41)
[2017-06-05 08:34] LABS: FOLATE 8.63 ng/mL (>2.76)
[2017-06-05] MEDS: METOPROLOL SUCCINATE 50 MG TAB.SR.24H PO SCH (09:27)
[2017-06-05] MEDS: MORPHINE SULFATE SR 30 MG TABLET PO SCH ×2 (09:28→21:44)
[2017-06-05] MEDS: GABAPENTIN 300 MG CAPSULE PO SCH ×2 (09:28→21:44)
[2017-06-05] MEDS: NORMAL SALINE 10 ML SDV (SCHEDULED) IV SCH ×2 (09:29→21:44)
[2017-06-05] MEDS: POLYETHYLENE GLYCOL 3350 POWDER 17 GM/1 PACKET PO SCH (09:35)
--- NOTE | 2017-06-05 16:41 | PDOC PROGRESS REPORT ---
Subjective Progress Note for:: 06/05/17 Subjective:: 46-year-old male with a history of IV drug abuse who presented with 2 day history of fevers and diffuse joint pains. He was found to have bacteremia and was assumed to have endocarditis. 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 Patient was treated with antibiotics and even in spite of antibiotics developed septic arthritis of the right knee. He was evaluated by orthopedic surgery who has washed out his joint twice now. The patient has negative blood cultures from May 14. His initial antibiotics were changed to meropenem because of the septic arthritis that appeared while on antibiotics. Reason For Visit: SEPSIS ENDOCARDITIS, POLYARTHRITIS, IV DRUG ABUSE Physical Exam Vital Signs: Temp Pulse Resp BP Pulse Ox 98.4 F 95 17 87/42 L 100 06/05/17 10:58 06/05/17 10:58 06/05/17 10:58 06/05/17 10:58 06/05/17 10:58 Pulse Oximeter Continuous Start: 05/05/17 11: 26 Freq: RTQ4 Status: Complete Document 05/11/17 08:00 JDR (Rec: 05/11/17 11:14 JDR [email or web address]) Pulse Oximetry Assessment Oxygen Saturation (92-100) 98 Oxygen Flow Rate (L/min) 2 Oxygen Delivery Method Nasal Cannula Equipment Usage Equipment in Use Continuous SpO2 Machine # 8 Intake & Output 06/04/17 06/05/17 06/06/17 06:59 06:59 06:59 Intake Total 7470 1810 Output Total 6540 1730 Balance 930 80 Weight 67.6 kg General appearance: PRESENT: no acute distress Eye exam: PRESENT: conjunctiva pink. ABSENT: scleral icterus Mouth exam: PRESENT: moist, tongue midline Neck exam: ABSENT: JVD Respiratory exam: PRESENT: clear to auscultation antonio. ABSENT: rales, rhonchi, wheezes Cardiovascular exam: PRESENT: RRR. ABSENT: diastolic murmur, rubs, systolic murmur GI/Abdominal exam: PRESENT: normal bowel sounds, soft. ABSENT: distended, guarding, mass, organolmegaly, rebound, tenderness Extremities exam: PRESENT: other - Drain in place on the right knee. ABSENT: calf tenderness, clubbing, pedal edema Neurological exam: PRESENT: alert, awake, oriented to person, oriented to place , oriented to time, oriented to situation, CN II-XII grossly intact. ABSENT: motor sensory deficit Skin exam: PRESENT: dry, intact, warm. ABSENT: cyanosis, rash Results Laboratory Results: 06/05/17 05:55 06/05/17 05:55 06/05/17 06/05/17 06/05/17 05:55 05:55 05:55 WBC 18.2 H RBC 2.62 L Hgb 7.2 L Hct 21.6 L MCV 83 MCH 27.6 MCHC 33.5 RDW 16.6 H Plt Count 495 H Seg Neutrophils % 66.1 Lymphocytes % 25.9 Monocytes % 6.9 Eosinophils % 0.6 Basophils % 0.5 Absolute Neutrophils 12.0 H Absolute Lymphocytes 4.7 Absolute Monocytes 1.3 Absolute Eosinophils 0.1 Absolute Basophils 0.1 Retic Count (auto) 3.39 H Absolute Retic 0.090 Sodium 128.8 L Potassium 4.3 Chloride 91 L Carbon Dioxide 30 Anion Gap 8 BUN 11 Creatinine 0.40 L Est GFR ( Amer) > 60 Est GFR (Non-Af Amer) > 60 Glucose 128 H Calcium 8.2 L Iron TIBC % Saturation Ferritin Vitamin B12 Folate 06/05/17 05:55 WBC RBC Hgb Hct MCV MCH MCHC RDW Plt Count Seg Neutrophils % Lymphocytes % Monocytes % Eosinophils % Basophils % Absolute Neutrophils Absolute Lymphocytes Absolute Monocytes Absolute Eosinophils Absolute Basophils Retic Count (auto) Absolute Retic Sodium Potassium Chloride Carbon Dioxide Anion Gap BUN Creatinine Est GFR ( Amer) Est GFR (Non-Af Amer) Glucose Calcium Iron 12.3 L TIBC 212 L % Saturation 6 Ferritin 909.00 H Vitamin B12 869.0 Folate 8.63 Impressions: Head CT 05/05/17 00:00 IMPRESSION: Limited negative study EVIDENCE OF ACUTE STROKE: NO. Lumbar Spine X-Ray 05/05/17 00:00 IMPRESSION: No acute fracture or malalignment. Multilevel disc space loss of height with anterior osteophyte formation Hip X-Ray 05/05/17 03:18 IMPRESSION: No acute findings. 2010 [employer]- All Rights Reserved Wrist X-Ray 05/05/17 03:18 IMPRESSION: No acute findings. Limited scaphoid views. 2010 [employer]- All Rights Reserved Chest X-Ray 05/05/17 03:23 IMPRESSION: No acute cardiopulmonary findings. 2010 [employer]- All Rights Reserved Guidance Fluoroscopy 05/12/17 00:00 IMPRESSION: SUCCESSFUL PLACEMENT OF A 5 FR DUAL LUMEN 35 CM PICC IN THE RIGHT BASILIC VEIN. Interventional Vascular Procedure 05/12/17 00:00 IMPRESSION: SUCCESSFUL PLACEMENT OF A 5 FR DUAL LUMEN 35 CM PICC IN THE RIGHT BASILIC VEIN. PICC Line Insertion 05/12/17 00:00 IMPRESSION: SUCCESSFUL PLACEMENT OF A 5 FR DUAL LUMEN 35 CM PICC IN THE RIGHT BASILIC VEIN. Knee X-Ray 05/26/17 00:00 IMPRESSION: Large suprapatellar knee joint effusion with air bubbles from septic joint. Soft tissue air bubbles in the medial right upper calf worrisome for infection with gas-forming organism. Lower Extremity MRI 05/26/17 00:00 IMPRESSION: No osteomyelitis. Septic joint containing fluid and gas and there is extensive fluid in the popliteal fossa communicating with the joint with both fluid and gas. Measures 13 cm. Mild edema in adjacent muscles. Tibia/Fibula X-Ray 05/26/17 00:00 IMPRESSION: LARGE JOINT EFFUSION. MULTIPLE BUBBLES OF GAS IN THE SOFT TISSUES OF THE PROXIMAL CALF. Assessment & Plan - Diagnosis (1) Septic arthritis of knee, right Qualifiers: Septic arthritis organism: due to unspecified organism Qualified Code(s): M00.9 - Pyogenic arthritis, unspecified Is this a current diagnosis for this admission?: Yes Plan: Continue with meropenem. The patient continues to have severe pain. Will continue with MS Contin given that he is requiring frequent doses of morphine. (2) Bacteremia Is this a current diagnosis for this admission?: Yes Plan: Patient has endocarditis involving the tricuspid valve. Will need a total of 6 weeks of IV antibiotics from the first negative blood culture. The patient's first negative cultures May 14. His last day of antibiotics would be June 28. The patient is on meropenem. It was changed to meropenem because of the septic arthritis. (3) Acute metabolic encephalopathy Is this a current diagnosis for this admission?: Yes Plan: Resolved. Most likely secondary to substance abuse. (4) Dehydration Is this a current diagnosis for this admission?: Yes Plan: Resolved (5) Hyponatremia Is this a current diagnosis for this admission?: Yes Plan: Stable - Time Time Spent with patient: 25-34 minutes - Inpatient Certification Medical Necessity: Need for IV Antibiotics
[2017-06-06] MEDS: MEROPENEM 1 GM in NORMAL SALINE 50 ML IV SCH ×3 (02:55→18:15)
[2017-06-06] MEDS: MORPHINE SULFATE 10 MG/ML INJ IV PRN ×3 (03:41→18:16)
[2017-06-06] MEDS: NORMAL SALINE 10 ML SDV (AFTER EACH USE) IV PRN (05:25)
[2017-06-06 05:46] LABS: HEMATOCRIT 21.7 % (37.9-51.0); MEAN CORPUSCULAR HEMOGLOBIN 27.7 pg (27.0-33.4); MEAN CORPUSCULAR HGB CONC 33.6 g/dL (32.0-36.0); MEAN CORPUSCULAR VOLUME 83 fl (80-97); PLATELET COUNT 528 10^3/uL (150-450); RED BLOOD COUNT 2.64 10^6/uL (4.35-5.55); RED CELL DISTRIBUTION WIDTH 16.8 % (11.5-14.0); WHITE BLOOD COUNT 20.9 10^3/uL (4.0-10.5)
[2017-06-06 06:09] LABS: ANION GAP 7 (5-19); BLOOD UREA NITROGEN 12 mg/dL (7-20); CALCIUM 8.1 mg/dL (8.4-10.2); CARBON DIOXIDE 28 mmol/L (22-30); CHLORIDE 94 mmol/L (98-107); GLUCOSE 146 mg/dL (75-110); POTASSIUM 4.3 mmol/L (3.6-5.0); SODIUM 128.7 mmol/L (137-145)
[2017-06-06 06:39] LABS: BASOPHILS % (MANUAL) 0 % (0-2); EOSINOPHILS % (MANUAL) 0 % (0-6); TOTAL CELLS COUNTED 100
[2017-06-06 06:42] LABS: ANISOCYTOSIS 1+; TOXIC GRANULATION 2+
[2017-06-06 06:43] LABS: HELMET CELLS 1+; PLATELET COMMENT ADEQUATE; PLATELET LARGE PRESENT; POIKILOCYTOSIS SLIGHT; SCHISTOCYTES 1+; TEAR DROP CELLS SLIGHT
[2017-06-06 06:47] LABS: HEMOGLOBIN 7.3 g/dL (13.5-17.0)
[2017-06-06] MEDS: METFORMIN HCL 500 MG TABLET PO SCH ×2 (08:00→18:16)
[2017-06-06] MEDS: GABAPENTIN 300 MG CAPSULE PO SCH ×2 (09:12→21:43)
[2017-06-06] MEDS: FERROUS SULFATE 325 MG TABLET PO SCH ×2 (09:12→18:15)
[2017-06-06] MEDS: METOPROLOL SUCCINATE 50 MG TAB.SR.24H PO SCH (09:12)
[2017-06-06] MEDS: MORPHINE SULFATE SR 30 MG TABLET PO SCH ×2 (09:12→21:43)
[2017-06-06] MEDS: NORMAL SALINE 10 ML SDV (SCHEDULED) IV SCH ×2 (09:15→21:45)
[2017-06-06] MEDS: POLYETHYLENE GLYCOL 3350 POWDER 17 GM/1 PACKET PO SCH (09:15)
[2017-06-06 14:58] LABS: BAND NEUTROPHILS % (MANUAL) 2 % (3-5); LYMPHOCYTES % (MANUAL) 5 % (13-45); SEGMENTED NEUTROPHILS % (MAN) 82 % (42-78)
[2017-06-06 14:59] LABS: METAMYELOCYTES % (MANUAL) 2 % (0); MONOCYTES % (MANUAL) 6 % (3-13); MYELOCYTES % (MANUAL) 1 % (0)
[2017-06-06 15:00] LABS: ABSOLUTE LYMPHOCYTES# (MANUAL) 1.5 10^3/uL (0.5-4.7); ABSOLUTE NEUTROPHILS# (MANUAL) 18.2 10^3/uL (1.7-8.2)
[2017-06-06 15:01] LABS: ABSOLUTE MONOCYTES # (MANUAL) 1.3 10^3/uL (0.1-1.4)
--- NOTE | 2017-06-06 17:21 | PDOC PROGRESS REPORT ---
Subjective Progress Note for:: 06/06/17 Subjective:: Says he cannot sleep in the hospital due to interruptions, bed, and mental worrying, etc. Reason For Visit: SEPSIS ENDOCARDITIS, POLYARTHRITIS, IV DRUG ABUSE Physical Exam Vital Signs: Temp Pulse Resp BP Pulse Ox 98.5 F 98 17 91/49 L 98 06/06/17 14:56 06/06/17 14:56 06/06/17 14:56 06/06/17 14:56 06/06/17 14:56 Pulse Oximeter Continuous Start: 05/05/17 11: 26 Freq: RTQ4 Status: Complete Document 05/11/17 08:00 JDR (Rec: 05/11/17 11:14 JDR [email or web address]) Pulse Oximetry Assessment Oxygen Saturation (92-100) 98 Oxygen Flow Rate (L/min) 2 Oxygen Delivery Method Nasal Cannula Equipment Usage Equipment in Use Continuous SpO2 Machine # 8 Intake & Output 06/05/17 06/06/17 06/07/17 06:59 06:59 06:59 Intake Total 1810 1063 Output Total 1730 2150 30 Balance 80 -1087 -30 General appearance: PRESENT: no acute distress, thin Head exam: PRESENT: atraumatic, normocephalic Eye exam: PRESENT: EOMI, PERRLA Respiratory exam: PRESENT: clear to auscultation antonio. ABSENT: rales, rhonchi, wheezes Cardiovascular exam: PRESENT: RRR. ABSENT: diastolic murmur, rubs, systolic murmur GI/Abdominal exam: PRESENT: normal bowel sounds, soft. ABSENT: distended, guarding, mass, organolmegaly, rebound, tenderness Musculoskeletal exam: PRESENT: other - Large dressing on right knee with drain Neurological exam: PRESENT: alert, awake, oriented to person, oriented to place , oriented to time, oriented to situation, CN II-XII grossly intact. ABSENT: motor sensory deficit Psychiatric exam: PRESENT: appropriate affect, normal mood. ABSENT: homicidal ideation, suicidal ideation Skin exam: PRESENT: dry, intact, warm. ABSENT: cyanosis, rash Results Laboratory Results: 06/06/17 05:25 06/06/17 05:25 06/06/17 06/06/17 05:25 05:25 WBC 20.9 H RBC 2.64 L Hgb 7.3 L Hct 21.7 L MCV 83 MCH 27.7 MCHC 33.6 RDW 16.8 H Plt Count 528 H Seg Neutrophils % Not Reportable Lymphocytes % Not Reportable Monocytes % Not Reportable Eosinophils % Not Reportable Basophils % Not Reportable Absolute Neutrophils Not Reportable Absolute Lymphocytes Not Reportable Absolute Monocytes Not Reportable Absolute Eosinophils Not Reportable Absolute Basophils Not Reportable Sodium 128.7 L Potassium 4.3 Chloride 94 L Carbon Dioxide 28 Anion Gap 7 BUN 12 Creatinine 0.39 L Est GFR ( Amer) > 60 Est GFR (Non-Af Amer) > 60 Glucose 146 H Calcium 8.1 L Impressions: Head CT 05/05/17 00:00 IMPRESSION: Limited negative study EVIDENCE OF ACUTE STROKE: NO. Lumbar Spine X-Ray 05/05/17 00:00 IMPRESSION: No acute fracture or malalignment. Multilevel disc space loss of height with anterior osteophyte formation Hip X-Ray 05/05/17 03:18 IMPRESSION: No acute findings. 2010 [employer]- All Rights Reserved Wrist X-Ray 05/05/17 03:18 IMPRESSION: No acute findings. Limited scaphoid views. 2010 [employer]- All Rights Reserved Chest X-Ray 05/05/17 03:23 IMPRESSION: No acute cardiopulmonary findings. 2010 [employer]- All Rights Reserved Guidance Fluoroscopy 05/12/17 00:00 IMPRESSION: SUCCESSFUL PLACEMENT OF A 5 FR DUAL LUMEN 35 CM PICC IN THE RIGHT BASILIC VEIN. Interventional Vascular Procedure 05/12/17 00:00 IMPRESSION: SUCCESSFUL PLACEMENT OF A 5 FR DUAL LUMEN 35 CM PICC IN THE RIGHT BASILIC VEIN. PICC Line Insertion 05/12/17 00:00 IMPRESSION: SUCCESSFUL PLACEMENT OF A 5 FR DUAL LUMEN 35 CM PICC IN THE RIGHT BASILIC VEIN. Knee X-Ray 05/26/17 00:00 IMPRESSION: Large suprapatellar knee joint effusion with air bubbles from septic joint. Soft tissue air bubbles in the medial right upper calf worrisome for infection with gas-forming organism. Lower Extremity MRI 05/26/17 00:00 IMPRESSION: No osteomyelitis. Septic joint containing fluid and gas and there is extensive fluid in the popliteal fossa communicating with the joint with both fluid and gas. Measures 13 cm. Mild edema in adjacent muscles. Tibia/Fibula X-Ray 05/26/17 00:00 IMPRESSION: LARGE JOINT EFFUSION. MULTIPLE BUBBLES OF GAS IN THE SOFT TISSUES OF THE PROXIMAL CALF. Assessment & Plan - Diagnosis (1) Endocarditis of tricuspid valve Is this a current diagnosis for this admission?: Yes Plan: Continue antibiotics until June 28.. He will remain in the hospital until then. (2) Septic arthritis of knee, right Qualifiers: Septic arthritis organism: due to unspecified organism Qualified Code(s): M00.9 - Pyogenic arthritis, unspecified Is this a current diagnosis for this admission?: Yes Plan: He was started on IV meropenem, in addition to vancomycin that he has already been receiving for the endocarditis. Gram stain of the knee fluid has not shown any organisms. Cultures have also been negative. (3) Polysubstance abuse Is this a current diagnosis for this admission?: Yes (4) Anemia Qualifiers: Anemia type: iron deficiency Iron deficiency anemia type: inadequate dietary iron intake Qualified Code(s): D50.8 - Other iron deficiency anemias Is this a current diagnosis for this admission?: Yes Plan: Check stool for occult blood. (5) Hyponatremia Is this a current diagnosis for this admission?: Yes Plan: Asymptomatic. Continue to monitor. - Time Time Spent with patient: 15-24 minutes Medications reviewed and adjusted accordingly: Yes Anticipated discharge: Home - Inpatient Certification Medical Necessity: Need for IV Antibiotics
--- NOTE | 2017-06-06 20:24 | PDOC PROGRESS REPORT ---
Subjective Subjective:: Patient lying in bed comfortably. Denies fever chills or sweats. Was able to ambulate partial weightbearing today and is able to bend his knee more Reason For Visit: SEPSIS ENDOCARDITIS, POLYARTHRITIS, IV DRUG ABUSE Physical Exam Vital Signs: Temp Pulse Resp BP Pulse Ox 98.5 F 94 17 91/49 L 98 06/06/17 14:56 06/06/17 19:00 06/06/17 14:56 06/06/17 14:56 06/06/17 14:56 Pulse Oximeter Continuous Start: 05/05/17 11: 26 Freq: RTQ4 Status: Complete Document 05/11/17 08:00 JDR (Rec: 05/11/17 11:14 JDR [email or web address]) Pulse Oximetry Assessment Oxygen Saturation (92-100) 98 Oxygen Flow Rate (L/min) 2 Oxygen Delivery Method Nasal Cannula Equipment Usage Equipment in Use Continuous SpO2 Machine # 8 Intake & Output 06/05/17 06/06/17 06/07/17 06:59 06:59 06:59 Intake Total 1810 1063 709 Output Total 1730 2150 630 Balance 80 -1087 79 Musculoskeletal exam: PRESENT: other - Right knee: Bloody serosanguineous drainage no purulent drainage appreciated. Minimal effusion. Knee range of motion 20-90 discomfort with terminal flexion and extension. No calf swelling. No erythema. Compartment soft and compressible intact plantar flexion/dorsiflexion Results Laboratory Results: 06/06/17 05:25 06/06/17 05:25 06/06/17 06/06/17 05:25 05:25 WBC 20.9 H RBC 2.64 L Hgb 7.3 L Hct 21.7 L MCV 83 MCH 27.7 MCHC 33.6 RDW 16.8 H Plt Count 528 H Seg Neutrophils % Not Reportable Lymphocytes % Not Reportable Monocytes % Not Reportable Eosinophils % Not Reportable Basophils % Not Reportable Absolute Neutrophils Not Reportable Absolute Lymphocytes Not Reportable Absolute Monocytes Not Reportable Absolute Eosinophils Not Reportable Absolute Basophils Not Reportable Sodium 128.7 L Potassium 4.3 Chloride 94 L Carbon Dioxide 28 Anion Gap 7 BUN 12 Creatinine 0.39 L Est GFR ( Amer) > 60 Est GFR (Non-Af Amer) > 60 Glucose 146 H Calcium 8.1 L Impressions: Head CT 05/05/17 00:00 IMPRESSION: Limited negative study EVIDENCE OF ACUTE STROKE: NO. Lumbar Spine X-Ray 05/05/17 00:00 IMPRESSION: No acute fracture or malalignment. Multilevel disc space loss of height with anterior osteophyte formation Hip X-Ray 05/05/17 03:18 IMPRESSION: No acute findings. 2010 [employer]- All Rights Reserved Wrist X-Ray 05/05/17 03:18 IMPRESSION: No acute findings. Limited scaphoid views. 2010 [employer]- All Rights Reserved Chest X-Ray 05/05/17 03:23 IMPRESSION: No acute cardiopulmonary findings. 2010 [employer]- All Rights Reserved Guidance Fluoroscopy 05/12/17 00:00 IMPRESSION: SUCCESSFUL PLACEMENT OF A 5 FR DUAL LUMEN 35 CM PICC IN THE RIGHT BASILIC VEIN. Interventional Vascular Procedure 05/12/17 00:00 IMPRESSION: SUCCESSFUL PLACEMENT OF A 5 FR DUAL LUMEN 35 CM PICC IN THE RIGHT BASILIC VEIN. PICC Line Insertion 05/12/17 00:00 IMPRESSION: SUCCESSFUL PLACEMENT OF A 5 FR DUAL LUMEN 35 CM PICC IN THE RIGHT BASILIC VEIN. Knee X-Ray 05/26/17 00:00 IMPRESSION: Large suprapatellar knee joint effusion with air bubbles from septic joint. Soft tissue air bubbles in the medial right upper calf worrisome for infection with gas-forming organism. Lower Extremity MRI 05/26/17 00:00 IMPRESSION: No osteomyelitis. Septic joint containing fluid and gas and there is extensive fluid in the popliteal fossa communicating with the joint with both fluid and gas. Measures 13 cm. Mild edema in adjacent muscles. Tibia/Fibula X-Ray 05/26/17 00:00 IMPRESSION: LARGE JOINT EFFUSION. MULTIPLE BUBBLES OF GAS IN THE SOFT TISSUES OF THE PROXIMAL CALF. Assessment & Plan - Diagnosis (1) Myalgia Is this a current diagnosis for this admission?: No (2) Septic arthritis of knee, right Qualifiers: Septic arthritis organism: due to unspecified organism Qualified Code(s): M00.9 - Pyogenic arthritis, unspecified Is this a current diagnosis for this admission?: Yes Plan: Status post arthroscopic I&D, I&D right leg 05/27/17 #1 continue IV meropenem #2 pain control. #3 physical therapy partial weightbearing right lower extremity #4 Patient will continue ADA drain until less than 10 cc.
[2017-06-06] MEDS: ZOLPIDEM TARTRATE 5 MG TABLET PO SCH (21:43)
[2017-06-07] MEDS: MEROPENEM 1 GM in NORMAL SALINE 50 ML IV SCH ×3 (02:09→16:52)
[2017-06-07] MEDS: MORPHINE SULFATE 10 MG/ML INJ IV PRN ×3 (05:18→18:52)
[2017-06-07] MEDS: METFORMIN HCL 500 MG TABLET PO SCH ×2 (09:41→16:50)
[2017-06-07] MEDS: NORMAL SALINE 10 ML SDV (SCHEDULED) IV SCH ×2 (09:41→22:16)
[2017-06-07] MEDS: FERROUS SULFATE 325 MG TABLET PO SCH ×2 (09:41→16:50)
[2017-06-07] MEDS: GABAPENTIN 300 MG CAPSULE PO SCH ×2 (09:41→22:15)
[2017-06-07] MEDS: MORPHINE SULFATE SR 30 MG TABLET PO SCH ×2 (09:42→22:15)
[2017-06-07] MEDS: METOPROLOL SUCCINATE 50 MG TAB.SR.24H PO SCH (09:42)
[2017-06-07] MEDS: POLYETHYLENE GLYCOL 3350 POWDER 17 GM/1 PACKET PO SCH (09:43)
[2017-06-07 14:42] LABS: PATH REVIEW PATHOLOGIST REVIEWED
--- NOTE | 2017-06-07 17:13 | PDOC PROGRESS REPORT ---
Subjective Progress Note for:: 06/07/17 Subjective:: Lulú helped with sleep. Today he feels much better. Reason For Visit: SEPSIS ENDOCARDITIS, POLYARTHRITIS, IV DRUG ABUSE Physical Exam Vital Signs: Temp Pulse Resp BP Pulse Ox 100.7 F H 106 H 17 103/58 L 100 06/07/17 14:58 06/07/17 14:58 06/07/17 14:58 06/07/17 14:58 06/07/17 14:58 Pulse Oximeter Continuous Start: 05/05/17 11: 26 Freq: RTQ4 Status: Complete Document 05/11/17 08:00 JDR (Rec: 05/11/17 11:14 JDR [email or web address]) Pulse Oximetry Assessment Oxygen Saturation (92-100) 98 Oxygen Flow Rate (L/min) 2 Oxygen Delivery Method Nasal Cannula Equipment Usage Equipment in Use Continuous SpO2 Machine # 8 Intake & Output 06/06/17 06/07/17 06/08/17 06:59 06:59 06:59 Intake Total 1063 759 883 Output Total 2150 1470 975 Balance -1087 -711 -92 Weight 67.6 kg Respiratory exam: PRESENT: clear to auscultation antonio. ABSENT: rales, rhonchi, wheezes Cardiovascular exam: PRESENT: RRR. ABSENT: diastolic murmur, rubs, systolic murmur GI/Abdominal exam: PRESENT: soft. ABSENT: tenderness Musculoskeletal exam: PRESENT: ambulatory Neurological exam: PRESENT: alert, awake, oriented to person, oriented to place , oriented to time, oriented to situation, CN II-XII grossly intact. ABSENT: motor sensory deficit Psychiatric exam: PRESENT: appropriate affect, normal mood. ABSENT: homicidal ideation, suicidal ideation Results Laboratory Results: 06/06/17 05:25 06/06/17 05:25 06/06/17 05:25 WBC 20.9 H RBC 2.64 L Hgb 7.3 L Hct 21.7 L MCV 83 MCH 27.7 MCHC 33.6 RDW 16.8 H Plt Count 528 H 06/03/17 08:36 Knee Fluid - Right Gram Stain - Final 06/03/17 08:36 Knee Fluid - Right Body Fluid Culture - Final NO AEROBIC OR ANAEROBIC ORGANISMS RECOVERED Impressions: Head CT 05/05/17 00:00 IMPRESSION: Limited negative study EVIDENCE OF ACUTE STROKE: NO. Lumbar Spine X-Ray 05/05/17 00:00 IMPRESSION: No acute fracture or malalignment. Multilevel disc space loss of height with anterior osteophyte formation Hip X-Ray 05/05/17 03:18 IMPRESSION: No acute findings. 2010 [employer]- All Rights Reserved Wrist X-Ray 05/05/17 03:18 IMPRESSION: No acute findings. Limited scaphoid views. 2010 [employer]- All Rights Reserved Chest X-Ray 05/05/17 03:23 IMPRESSION: No acute cardiopulmonary findings. 2010 [employer]- All Rights Reserved Guidance Fluoroscopy 05/12/17 00:00 IMPRESSION: SUCCESSFUL PLACEMENT OF A 5 FR DUAL LUMEN 35 CM PICC IN THE RIGHT BASILIC VEIN. Interventional Vascular Procedure 05/12/17 00:00 IMPRESSION: SUCCESSFUL PLACEMENT OF A 5 FR DUAL LUMEN 35 CM PICC IN THE RIGHT BASILIC VEIN. PICC Line Insertion 05/12/17 00:00 IMPRESSION: SUCCESSFUL PLACEMENT OF A 5 FR DUAL LUMEN 35 CM PICC IN THE RIGHT BASILIC VEIN. Knee X-Ray 05/26/17 00:00 IMPRESSION: Large suprapatellar knee joint effusion with air bubbles from septic joint. Soft tissue air bubbles in the medial right upper calf worrisome for infection with gas-forming organism. Lower Extremity MRI 05/26/17 00:00 IMPRESSION: No osteomyelitis. Septic joint containing fluid and gas and there is extensive fluid in the popliteal fossa communicating with the joint with both fluid and gas. Measures 13 cm. Mild edema in adjacent muscles. Tibia/Fibula X-Ray 05/26/17 00:00 IMPRESSION: LARGE JOINT EFFUSION. MULTIPLE BUBBLES OF GAS IN THE SOFT TISSUES OF THE PROXIMAL CALF. Assessment & Plan - Diagnosis (1) Endocarditis of tricuspid valve Is this a current diagnosis for this admission?: Yes Plan: Continue antibiotics until June 28.. He will remain in the hospital until then. (2) Septic arthritis of knee, right Qualifiers: Septic arthritis organism: due to unspecified organism Qualified Code(s): M00.9 - Pyogenic arthritis, unspecified Is this a current diagnosis for this admission?: Yes Plan: He was started on IV meropenem, in addition to vancomycin that he has already been receiving for the endocarditis. Gram stain of the knee fluid has not shown any organisms. Cultures have also been negative. (3) Polysubstance abuse Is this a current diagnosis for this admission?: Yes Plan: stable (4) Anemia Qualifiers: Anemia type: iron deficiency Iron deficiency anemia type: inadequate dietary iron intake Qualified Code(s): D50.8 - Other iron deficiency anemias Is this a current diagnosis for this admission?: Yes Plan: Check stool for occult blood. (5) Hyponatremia Is this a current diagnosis for this admission?: Yes Plan: Asymptomatic. Continue to monitor. - Time Time Spent with patient: 15-24 minutes Anticipated discharge: Home - Inpatient Certification Based on my medical assessment, after consideration of the patient's comorbidities, presenting symptoms, or acuity I expect that the services needed warrant INPATIENT care.: Yes I certify that my determination is in accordance with my understanding of Medicare's requirements for reasonable and necessary INPATIENT services [42 CFR 412.3e].: Yes Medical Necessity: Need for IV Antibiotics
[2017-06-07] MEDS: ZOLPIDEM TARTRATE 5 MG TABLET PO SCH (22:15)
[2017-06-08] MEDS: MEROPENEM 1 GM in NORMAL SALINE 50 ML IV SCH ×3 (01:13→16:58)
[2017-06-08 05:21] LABS: HEMATOCRIT 21.2 % (37.9-51.0); MEAN CORPUSCULAR HEMOGLOBIN 28.1 pg (27.0-33.4); MEAN CORPUSCULAR HGB CONC 34.1 g/dL (32.0-36.0); MEAN CORPUSCULAR VOLUME 82 fl (80-97); PLATELET COUNT 526 10^3/uL (150-450); RED BLOOD COUNT 2.58 10^6/uL (4.35-5.55); RED CELL DISTRIBUTION WIDTH 17.1 % (11.5-14.0); WHITE BLOOD COUNT 21.3 10^3/uL (4.0-10.5)
[2017-06-08 05:47] LABS: ALANINE AMINOTRANSFERASE 33 U/L (21-72); ALBUMIN 2.5 g/dL (3.5-5.0); ALKALINE PHOSPHATASE 95 U/L (38-126); ANION GAP 7 (5-19); ASPARTATE AMINO TRANSFERASE 26 U/L (17-59); BILIRUBIN,DIRECT 0.2 mg/dL (0.0-0.4); BILIRUBIN,TOTAL 0.2 mg/dL (0.2-1.3); BLOOD UREA NITROGEN 10 mg/dL (7-20); CALCIUM 8.3 mg/dL (8.4-10.2); CARBON DIOXIDE 28 mmol/L (22-30); CHLORIDE 96 mmol/L (98-107); GLUCOSE 178 mg/dL (75-110); POTASSIUM 4.3 mmol/L (3.6-5.0); SODIUM 130.8 mmol/L (137-145); TOTAL PROTEIN 6.7 g/dL (6.3-8.2)
[2017-06-08 06:03] LABS: HEMOGLOBIN 7.2 g/dL (13.5-17.0)
[2017-06-08] MEDS: MORPHINE SULFATE 10 MG/ML INJ IV PRN (06:24)
[2017-06-08] MEDS: FERROUS SULFATE 325 MG TABLET PO SCH ×2 (10:31→16:57)
[2017-06-08] MEDS: GABAPENTIN 300 MG CAPSULE PO SCH ×2 (10:31→22:04)
[2017-06-08] MEDS: METOPROLOL SUCCINATE 50 MG TAB.SR.24H PO SCH (10:32)
[2017-06-08] MEDS: MORPHINE SULFATE SR 30 MG TABLET PO SCH (10:32)
[2017-06-08] MEDS: NORMAL SALINE 10 ML SDV (SCHEDULED) IV SCH ×2 (10:35→21:55)
[2017-06-08] MEDS: POLYETHYLENE GLYCOL 3350 POWDER 17 GM/1 PACKET PO SCH (10:35)
[2017-06-08] MEDS: METFORMIN HCL 500 MG TABLET PO SCH ×2 (10:47→16:58)
[2017-06-08] MEDS ORDERED: ACETAMINOPHEN 325 MG TABLET PO PRN (15:04)
[2017-06-08] MEDS ORDERED: DIPHENHYDRAMINE HCL 25 MG CAPSULE PO PRN (15:04)
[2017-06-08] MEDS ORDERED: NORMAL SALINE 250 ML IV PRN ×2 (15:04)
--- NOTE | 2017-06-08 15:09 | PDOC PROGRESS REPORT ---
Subjective Progress Note for:: 06/08/17 Subjective:: Today, he has a "catch" in his left arm/shoulder. He'd rather use Percocet for pain instead of Morphine. Reason For Visit: SEPSIS ENDOCARDITIS, POLYARTHRITIS, IV DRUG ABUSE Physical Exam Vital Signs: Temp Pulse Resp BP Pulse Ox 99.4 F 109 H 15 100/61 100 06/08/17 12:00 06/08/17 12:00 06/08/17 12:00 06/08/17 12:00 06/08/17 12:00 Pulse Oximeter Continuous Start: 05/05/17 11: 26 Freq: RTQ4 Status: Complete Document 05/11/17 08:00 JDR (Rec: 05/11/17 11:14 JDR [email or web address]) Pulse Oximetry Assessment Oxygen Saturation (92-100) 98 Oxygen Flow Rate (L/min) 2 Oxygen Delivery Method Nasal Cannula Equipment Usage Equipment in Use Continuous SpO2 Machine # 8 Intake & Output 06/07/17 06/08/17 06/09/17 06:59 06:59 06:59 Intake Total 759 1891 Output Total 1470 2730 Balance -711 -839 Weight 67.6 kg 67.5 kg General appearance: PRESENT: no acute distress, thin Head exam: PRESENT: atraumatic, normocephalic Eye exam: PRESENT: EOMI, PERRLA Respiratory exam: PRESENT: clear to auscultation antonio. ABSENT: rales, rhonchi, wheezes Cardiovascular exam: PRESENT: RRR. ABSENT: diastolic murmur, rubs, systolic murmur GI/Abdominal exam: PRESENT: normal bowel sounds, soft. ABSENT: distended, guarding, mass, organolmegaly, rebound, tenderness Musculoskeletal exam: PRESENT: full ROM - Except that he experiences discomfort when his left shoulder is abducted/raised., other - Right knee is still bandaged. A ADA drain is still intact. Neurological exam: PRESENT: alert, awake, oriented to person, oriented to place , oriented to time, oriented to situation, CN II-XII grossly intact. ABSENT: motor sensory deficit Psychiatric exam: PRESENT: appropriate affect, normal mood. ABSENT: homicidal ideation, suicidal ideation Results Laboratory Results: 06/08/17 05:05 06/08/17 05:05 06/08/17 06/08/17 05:05 05:05 WBC 21.3 H RBC 2.58 L Hgb 7.2 L Hct 21.2 L MCV 82 MCH 28.1 MCHC 34.1 RDW 17.1 H Plt Count 526 H Sodium 130.8 L Potassium 4.3 Chloride 96 L Carbon Dioxide 28 Anion Gap 7 BUN 10 Creatinine 0.41 L Est GFR ( Amer) > 60 Est GFR (Non-Af Amer) > 60 Glucose 178 H Calcium 8.3 L Total Bilirubin 0.2 AST 26 ALT 33 Alkaline Phosphatase 95 Total Protein 6.7 Albumin 2.5 L Impressions: Head CT 05/05/17 00:00 IMPRESSION: Limited negative study EVIDENCE OF ACUTE STROKE: NO. Lumbar Spine X-Ray 05/05/17 00:00 IMPRESSION: No acute fracture or malalignment. Multilevel disc space loss of height with anterior osteophyte formation Hip X-Ray 05/05/17 03:18 IMPRESSION: No acute findings. 2010 [employer]- All Rights Reserved Wrist X-Ray 05/05/17 03:18 IMPRESSION: No acute findings. Limited scaphoid views. 2010 [employer]- All Rights Reserved Chest X-Ray 05/05/17 03:23 IMPRESSION: No acute cardiopulmonary findings. 2010 [employer]- All Rights Reserved Guidance Fluoroscopy 05/12/17 00:00 IMPRESSION: SUCCESSFUL PLACEMENT OF A 5 FR DUAL LUMEN 35 CM PICC IN THE RIGHT BASILIC VEIN. Interventional Vascular Procedure 05/12/17 00:00 IMPRESSION: SUCCESSFUL PLACEMENT OF A 5 FR DUAL LUMEN 35 CM PICC IN THE RIGHT BASILIC VEIN. PICC Line Insertion 05/12/17 00:00 IMPRESSION: SUCCESSFUL PLACEMENT OF A 5 FR DUAL LUMEN 35 CM PICC IN THE RIGHT BASILIC VEIN. Knee X-Ray 05/26/17 00:00 IMPRESSION: Large suprapatellar knee joint effusion with air bubbles from septic joint. Soft tissue air bubbles in the medial right upper calf worrisome for infection with gas-forming organism. Lower Extremity MRI 05/26/17 00:00 IMPRESSION: No osteomyelitis. Septic joint containing fluid and gas and there is extensive fluid in the popliteal fossa communicating with the joint with both fluid and gas. Measures 13 cm. Mild edema in adjacent muscles. Tibia/Fibula X-Ray 05/26/17 00:00 IMPRESSION: LARGE JOINT EFFUSION. MULTIPLE BUBBLES OF GAS IN THE SOFT TISSUES OF THE PROXIMAL CALF. Assessment & Plan - Diagnosis (1) Endocarditis of tricuspid valve Is this a current diagnosis for this admission?: Yes Plan: Continue antibiotics until June 28.. He will remain in the hospital until then. (2) Septic arthritis of knee, right Qualifiers: Septic arthritis organism: due to unspecified organism Qualified Code(s): M00.9 - Pyogenic arthritis, unspecified Is this a current diagnosis for this admission?: Yes Plan: He was started on IV meropenem, in addition to vancomycin that he has already been receiving for the endocarditis. Gram stain of the knee fluid has not shown any organisms. Cultures have also been negative. (3) Polysubstance abuse Is this a current diagnosis for this admission?: Yes Plan: stable (4) Anemia Qualifiers: Anemia type: iron deficiency Iron deficiency anemia type: inadequate dietary iron intake Qualified Code(s): D50.8 - Other iron deficiency anemias Is this a current diagnosis for this admission?: Yes Plan: Check stool for occult blood. Transfuse 2 units of packed red blood cells. Informed consent was obtained from patient. (5) Hyponatremia Is this a current diagnosis for this admission?: Yes Plan: Asymptomatic. Continues to improve. Continue to monitor. (6) Diabetes Qualifiers: Diabetes mellitus type: type 2 Diabetes mellitus complication status: with diabetic arthropathy Diabetes mellitus vermin exterminator insulin use: without vermin exterminator use Is this a current diagnosis for this admission?: Yes Plan: Continue metformin. Consult ems educator. - Time Time Spent with patient: 15-24 minutes Anticipated discharge: Home - Inpatient Certification Medical Necessity: Need for IV Antibiotics
[2017-06-08] MEDS: OXYCODONE-ACETAMINOPHEN 5-325 MG TABLET PO PRN (16:56)
[2017-06-08] MEDS: NORMAL SALINE 10 ML SDV (AFTER EACH USE) IV PRN (18:38)
--- NOTE | 2017-06-08 19:47 | PDOC PROGRESS REPORT ---
Subjective Progress Note for:: 06/08/17 Subjective:: Patient resting comfortably in bed. No issues overnight Reason For Visit: SEPSIS ENDOCARDITIS, POLYARTHRITIS, IV DRUG ABUSE Physical Exam Vital Signs: Temp Pulse Resp BP Pulse Ox 37.4 C 95 16 104/54 L 100 06/08/17 16:00 06/08/17 16:00 06/08/17 16:00 06/08/17 16:00 06/08/17 16:00 Pulse Oximeter Continuous Start: 05/05/17 11: 26 Freq: RTQ4 Status: Complete Document 05/11/17 08:00 JDR (Rec: 05/11/17 11:14 JDR [email or web address]) Pulse Oximetry Assessment Oxygen Saturation (92-100) 98 Oxygen Flow Rate (L/min) 2 Oxygen Delivery Method Nasal Cannula Equipment Usage Equipment in Use Continuous SpO2 Machine # 8 Intake & Output 06/07/17 06/08/17 06/09/17 06:59 06:59 06:59 Intake Total 759 1891 1710 Output Total 1470 2730 1300 Balance -711 -839 410 Weight 67.6 kg 67.5 kg General appearance: PRESENT: no acute distress Adult Front & Back Image: 1 - Kerlix dressing is dry clean and intact. Drain is in intact with bloody drainage. Able to fully extend to about 30 and flex to about 90 before having significant pain. He is neurovascular intact distally. Results Laboratory Results: 06/08/17 05:05 06/08/17 05:05 06/08/17 06/08/17 06/08/17 05:05 05:05 15:54 WBC 21.3 H RBC 2.58 L Hgb 7.2 L Hct 21.2 L MCV 82 MCH 28.1 MCHC 34.1 RDW 17.1 H Plt Count 526 H Sodium 130.8 L Potassium 4.3 Chloride 96 L Carbon Dioxide 28 Anion Gap 7 BUN 10 Creatinine 0.41 L Est GFR ( Amer) > 60 Est GFR (Non-Af Amer) > 60 Glucose 178 H Calcium 8.3 L Total Bilirubin 0.2 AST 26 ALT 33 Alkaline Phosphatase 95 Total Protein 6.7 Albumin 2.5 L Blood Type A POSITIVE Antibody Screen NEGATIVE Impressions: Head CT 05/05/17 00:00 IMPRESSION: Limited negative study EVIDENCE OF ACUTE STROKE: NO. Lumbar Spine X-Ray 05/05/17 00:00 IMPRESSION: No acute fracture or malalignment. Multilevel disc space loss of height with anterior osteophyte formation Hip X-Ray 05/05/17 03:18 IMPRESSION: No acute findings. 2010 [employer]- All Rights Reserved Wrist X-Ray 05/05/17 03:18 IMPRESSION: No acute findings. Limited scaphoid views. 2010 [employer]- All Rights Reserved Chest X-Ray 05/05/17 03:23 IMPRESSION: No acute cardiopulmonary findings. 2010 [employer]- All Rights Reserved Guidance Fluoroscopy 05/12/17 00:00 IMPRESSION: SUCCESSFUL PLACEMENT OF A 5 FR DUAL LUMEN 35 CM PICC IN THE RIGHT BASILIC VEIN. Interventional Vascular Procedure 05/12/17 00:00 IMPRESSION: SUCCESSFUL PLACEMENT OF A 5 FR DUAL LUMEN 35 CM PICC IN THE RIGHT BASILIC VEIN. PICC Line Insertion 05/12/17 00:00 IMPRESSION: SUCCESSFUL PLACEMENT OF A 5 FR DUAL LUMEN 35 CM PICC IN THE RIGHT BASILIC VEIN. Knee X-Ray 05/26/17 00:00 IMPRESSION: Large suprapatellar knee joint effusion with air bubbles from septic joint. Soft tissue air bubbles in the medial right upper calf worrisome for infection with gas-forming organism. Lower Extremity MRI 05/26/17 00:00 IMPRESSION: No osteomyelitis. Septic joint containing fluid and gas and there is extensive fluid in the popliteal fossa communicating with the joint with both fluid and gas. Measures 13 cm. Mild edema in adjacent muscles. Tibia/Fibula X-Ray 05/26/17 00:00 IMPRESSION: LARGE JOINT EFFUSION. MULTIPLE BUBBLES OF GAS IN THE SOFT TISSUES OF THE PROXIMAL CALF. Assessment & Plan - Plan Summary Plan Summary: 46-year-old gentleman status post repeat I&D of right septic knee. Drain still producing bloody drainage so it will stay in for another day. Continue with therapy for range of motion exercises. Continue pain control. Continue antibiotics.
[2017-06-08] MEDS: ZOLPIDEM TARTRATE 5 MG TABLET PO SCH (22:04)
[2017-06-09] MEDS: OXYCODONE-ACETAMINOPHEN 5-325 MG TABLET PO PRN ×3 (00:35→18:08)
[2017-06-09] MEDS: MEROPENEM 1 GM in NORMAL SALINE 50 ML IV SCH ×3 (05:43→18:08)
[2017-06-09 07:06] LABS: HEMATOCRIT 30.1 % (37.9-51.0); MEAN CORPUSCULAR HEMOGLOBIN 27.2 pg (27.0-33.4); MEAN CORPUSCULAR HGB CONC 33.2 g/dL (32.0-36.0); MEAN CORPUSCULAR VOLUME 82 fl (80-97); PLATELET COUNT 522 10^3/uL (150-450); RED BLOOD COUNT 3.67 10^6/uL (4.35-5.55); RED CELL DISTRIBUTION WIDTH 17.2 % (11.5-14.0); WHITE BLOOD COUNT 20.9 10^3/uL (4.0-10.5)
[2017-06-09 07:33] LABS: ABSOLUTE MONOCYTES # (MANUAL) 0.6 10^3/uL (0.1-1.4); ABSOLUTE NEUTROPHILS# (MANUAL) 15.3 10^3/uL (1.7-8.2); BAND NEUTROPHILS % (MANUAL) 2 % (3-5); BASOPHILS % (MANUAL) 0 % (0-2); EOSINOPHILS % (MANUAL) 0 % (0-6); LYMPHOCYTES % (MANUAL) 23 % (13-45); METAMYELOCYTES % (MANUAL) 1 % (0); MONOCYTES % (MANUAL) 3 % (3-13); MYELOCYTES % (MANUAL) 1 % (0); PROMYELOCYTES % (MANUAL) 1 % (0); SEGMENTED NEUTROPHILS % (MAN) 68 % (42-78); TOTAL CELLS COUNTED 100
[2017-06-09 07:35] LABS: ANISOCYTOSIS 2+; PLATELET COMMENT INCREASED; POLYCHROMASIA 1+; TOXIC GRANULATION 2+
[2017-06-09] MEDS: METFORMIN HCL 500 MG TABLET PO SCH ×2 (07:36→18:08)
[2017-06-09] MEDS: GABAPENTIN 300 MG CAPSULE PO SCH ×2 (09:09→22:13)
[2017-06-09] MEDS: FERROUS SULFATE 325 MG TABLET PO SCH ×2 (09:09→18:08)
[2017-06-09] MEDS: METOPROLOL SUCCINATE 50 MG TAB.SR.24H PO SCH (09:10)
[2017-06-09] MEDS: NORMAL SALINE 10 ML SDV (SCHEDULED) IV SCH ×2 (09:12→22:13)
[2017-06-09] MEDS: POLYETHYLENE GLYCOL 3350 POWDER 17 GM/1 PACKET PO SCH (09:16)
--- NOTE | 2017-06-09 11:09 | PROGRESS NOTE E ---
Progress Note NAME: SUSHIL JARA : 1970 AGE: 46Y DATE: 06/09/2017 ROOM: 414 SUBJECTIVE: The patient is currently lying in bed. He states that he feels okay today. He is out of bed to the bedside chair. States that he feels he has more energy. The patient's knee feels some better since his second surgery. Patient still having a decent amount of output in his ADA drain. No shortness of breath, dizziness, chest pain. No fevers, chills. Patient has been afebrile. Blood pressure has been in a good range and the patient does not voice any other concerns at this time. REVIEW OF SYSTEMS: Negative. MEDICATIONS: Reviewed. OBJECTIVE: GENERAL: The patient is a 46-year-old male, who is awake, alert and oriented to person, place, time and situation. He is verbal and conversational. Does not appear to be in acute distress. VITAL SIGNS: Temperature is 97.4, pulse 74, respirations 14, blood pressure is 118/70, oxygen saturation 100% on room air. SKIN: Warm and dry. No rash. He is not diaphoretic. HEENT: Pupils equal, round, reactive to light and accommodation. Conjunctivae are pink. There is no evidence of JVP. CVS: Heart is regular. There is no rub. Chest is clear, symmetrical, unlabored. ABDOMEN: Soft, nontender, nondistended. BACK: No CVA tenderness or sacral edema. EXTREMITIES: No clubbing, cyanosis or edema. The patient's right knee is wrapped in Kerlix with drainage. PSYCHIATRIC: Appropriate affect, pleasant mood. DIAGNOSTICS: Lab values are as follows: Hematology obtained on 06/09/2017: WBCs are 20.9, hemoglobin is 10.0, hematocrit is 30.1, platelet count is 522,000. Chemistry obtained on 06/08/2017: Sodium is 130, potassium 4.3, chloride is 96, carbon dioxide 28, BUN 10, creatinine is 0.41. Glucose 178. Calcium is 8.3. IMPRESSION AND PLAN: 1. MSSA ENDOCARDITIS OF THE TRICUSPID VALVE. The patient is to continue on antibiotic therapy until the . It appears the patient will remain in the hospital until then. 2. RIGHT SEPTIC ARTHRITIS OF THE KNEE. The patient will start on IV meropenem, in addition to the vancomycin that he had already been receiving for his endocarditis. Gram stain of the knee has not shown any organisms. Culture has also been negative. 3. POLYSUBSTANCE ABUSE, STABLE. 4. ANEMIA, MOST LIKELY OF UNDERLYING DISEASE. This has been exacerbated by the patient's acute infection. The patient has been typed and cross-transfused. 5. HYPONATREMIA. This is asymptomatic. Monitor. 6. DIABETES MELLITUS TYPE 2. This is extremely well-controlled. Continue with metformin. DISPOSITION: The patient is a FULL CODE. Pending patient's symptomatology and diagnostic findings, will reevaluate in the a.m. Time spent on this followup, including assessment, plan, physical examination, patient education and review of records is 25 minutes. DICTATING PHYSICIAN: VERO SANDOVAL NP [id number] PHY#: [id number] ID: [id number] JOB#: [id number] ACCT: [id number] cc: >
--- NOTE | 2017-06-09 19:08 | PDOC PROGRESS REPORT ---
Subjective Progress Note for:: 06/09/17 Subjective:: Patient is doing okay with no issues overnight. Reason For Visit: SEPSIS ENDOCARDITIS, POLYARTHRITIS, IV DRUG ABUSE Physical Exam Vital Signs: Temp Pulse Resp BP Pulse Ox 38.1 C H 95 22 H 102/60 100 06/09/17 16:00 06/09/17 16:00 06/09/17 16:00 06/09/17 16:00 06/09/17 16:00 Pulse Oximeter Continuous Start: 05/05/17 11: 26 Freq: RTQ4 Status: Complete Document 05/11/17 08:00 JDR (Rec: 05/11/17 11:14 JDR [email or web address]) Pulse Oximetry Assessment Oxygen Saturation (92-100) 98 Oxygen Flow Rate (L/min) 2 Oxygen Delivery Method Nasal Cannula Equipment Usage Equipment in Use Continuous SpO2 Machine # 8 Intake & Output 06/08/17 06/09/17 06/10/17 06:59 06:59 06:59 Intake Total 1891 2460 478 Output Total 2730 1900 490 Balance -839 560 -12 Weight 67.5 kg Adult Front & Back Image: 1 - Exam unchanged from yesterday. Drain put out 80 cc today. Results Laboratory Results: 06/09/17 06:15 06/08/17 05:05 06/08/17 06/09/17 15:54 06:15 WBC 20.9 H RBC 3.67 L Hgb 10.0 L D Hct 30.1 L MCV 82 MCH 27.2 MCHC 33.2 RDW 17.2 H Plt Count 522 H Seg Neutrophils % Not Reportable Lymphocytes % Not Reportable Monocytes % Not Reportable Eosinophils % Not Reportable Basophils % Not Reportable Absolute Neutrophils Not Reportable Absolute Lymphocytes Not Reportable Absolute Monocytes Not Reportable Absolute Eosinophils Not Reportable Absolute Basophils Not Reportable Blood Type A POSITIVE Antibody Screen NEGATIVE Impressions: Head CT 05/05/17 00:00 IMPRESSION: Limited negative study EVIDENCE OF ACUTE STROKE: NO. Lumbar Spine X-Ray 05/05/17 00:00 IMPRESSION: No acute fracture or malalignment. Multilevel disc space loss of height with anterior osteophyte formation Hip X-Ray 05/05/17 03:18 IMPRESSION: No acute findings. 2010 [employer]- All Rights Reserved Wrist X-Ray 05/05/17 03:18 IMPRESSION: No acute findings. Limited scaphoid views. 2010 [employer]- All Rights Reserved Chest X-Ray 05/05/17 03:23 IMPRESSION: No acute cardiopulmonary findings. 2010 [employer]- All Rights Reserved Guidance Fluoroscopy 05/12/17 00:00 IMPRESSION: SUCCESSFUL PLACEMENT OF A 5 FR DUAL LUMEN 35 CM PICC IN THE RIGHT BASILIC VEIN. Interventional Vascular Procedure 05/12/17 00:00 IMPRESSION: SUCCESSFUL PLACEMENT OF A 5 FR DUAL LUMEN 35 CM PICC IN THE RIGHT BASILIC VEIN. PICC Line Insertion 05/12/17 00:00 IMPRESSION: SUCCESSFUL PLACEMENT OF A 5 FR DUAL LUMEN 35 CM PICC IN THE RIGHT BASILIC VEIN. Knee X-Ray 05/26/17 00:00 IMPRESSION: Large suprapatellar knee joint effusion with air bubbles from septic joint. Soft tissue air bubbles in the medial right upper calf worrisome for infection with gas-forming organism. Lower Extremity MRI 05/26/17 00:00 IMPRESSION: No osteomyelitis. Septic joint containing fluid and gas and there is extensive fluid in the popliteal fossa communicating with the joint with both fluid and gas. Measures 13 cm. Mild edema in adjacent muscles. Tibia/Fibula X-Ray 05/26/17 00:00 IMPRESSION: LARGE JOINT EFFUSION. MULTIPLE BUBBLES OF GAS IN THE SOFT TISSUES OF THE PROXIMAL CALF. Assessment & Plan - Plan Summary Plan Summary: 46-year-old gentleman status post I&D of the right knee 2. Drain still putting out more than 5 cc per shift. We will keep the drain in over the weekend. Will change dressing tomorrow. Continue antibiotics.
[2017-06-09] MEDS: ZOLPIDEM TARTRATE 5 MG TABLET PO SCH (22:13)
[2017-06-10] MEDS: MEROPENEM 1 GM in NORMAL SALINE 50 ML IV SCH (02:59)
[2017-06-10] MEDS: METFORMIN HCL 500 MG TABLET PO SCH (08:10)
[2017-06-10] MEDS: FERROUS SULFATE 325 MG TABLET PO SCH ×2 (08:11→17:40)
[2017-06-10] MEDS: GABAPENTIN 300 MG CAPSULE PO SCH ×2 (10:18→21:06)
[2017-06-10] MEDS: NORMAL SALINE 10 ML SDV (SCHEDULED) IV SCH ×2 (10:19→21:07)
[2017-06-10] MEDS: METOPROLOL SUCCINATE 50 MG TAB.SR.24H PO SCH (10:19)
[2017-06-10] MEDS: POLYETHYLENE GLYCOL 3350 POWDER 17 GM/1 PACKET PO SCH (10:20)
--- NOTE | 2017-06-10 10:24 | PROGRESS NOTE E ---
Progress Note NAME: SUSHIL JARA : 1970 AGE: 46Y DATE: 06/10/2017 ROOM: 414 SUBJECTIVE: The patient has been up out of bed to the bedside chair. The patient denies any nausea, vomiting. No shortness of breath, dizziness, chest pain. No fevers, chills. Patient has been afebrile. His blood pressures have been in a good range, and the patient does not voice any other concerns at this time. REVIEW OF SYSTEMS: Rest of review of systems is negative. MEDICATIONS: Medications have been reviewed. OBJECTIVE: GENERAL: The patient is a 46-year-old male who is awake, alert, and oriented to person, place, time and situation. He is verbal and conversational and does not appear to be in any acute distress. VITAL SIGNS FOLLOWS: Temperature is 97.9. Pulse 104. Respirations 18. Blood pressure is 131/88. Oxygen saturation 99% on room air. SKIN: Warm and dry. No rash. Not diaphoretic. HEENT: Pupils equal, round and reactive to light and accommodation. Conjunctivae are pink. NECK: No evidence of JVP. CARDIOVASCULAR SYSTEM: Heart is regular. There is no murmur or rub. CHEST: Clear, symmetrical, unlabored. ABDOMEN: Soft. Bowel sounds present. EXTREMITIES: No clubbing, cyanosis, edema. PSYCHIATRIC: Appropriate affect. Pleasant mood. DIAGNOSTICS: Lab values are as follows: Hematology obtained on 06/08/2017: WBCs are 11.3, hemoglobin is 8.6, hematocrit is 27.3, platelet count is 293,000. IMPRESSION AND PLAN: 1. MSSA ENDOCARDITIS OF THE TRICUSPID VALVE. Will continue Ancef 2 gm IV q. 8 hours until the . It appears the patient will remain in the hospital until then. 2. SEPTIC ARTHRITIS OF THE KNEE. The patient is currently covered with antibiotics. The patient has no history of MRSA. The patient received additional gram-negative coverage for 7 days. Will follow. 3. POLYSUBSTANCE ABUSE, STABLE. 4. ANEMIA, MOST LIKELY DUE TO THE PATIENT'S CURRENT DISEASE. The patient was typed and crossed, transfused. It appears he is significantly iron deficient. I have continued iron supplements, an additional dose of vitamin C with each administration. 5. HYPONATREMIA. This is asymptomatic. Will monitor. 6. DIABETES MELLITUS TYPE 2. Extremely well controlled. Responded nicely to metformin. Actually, the patient's A1C has improved just during this admission. DISPOSITION: The patient is a FULL CODE. Pending patient's symptomatology and diagnostic findings, will reevaluate in the a.m. TIME SPENT: Time spent on this followup including assessment, plan, physical examination, patient education, review of records is 25 minutes. DICTATING PHYSICIAN: VERO SANDOVAL NP [id number] Y#: [id number] ID: [id number] JOB#: [id number] ACCT: [id number] cc: > MTDD
[2017-06-10] MEDS: OXYCODONE-ACETAMINOPHEN 5-325 MG TABLET PO PRN ×3 (10:48→19:47)
[2017-06-10] MEDS: CEFAZOLIN 2 GM/D5W RTU 2 GM/50 ML RTUPB IV SCH ×2 (14:07→21:06)
[2017-06-10] MEDS: ZOLPIDEM TARTRATE 5 MG TABLET PO SCH (21:06)
[2017-06-10] MEDS ORDERED: MORPHINE SULFATE IR 15 MG TABLET PO PRN (21:55)
[2017-06-11] MEDS: OXYCODONE-ACETAMINOPHEN 5-325 MG TABLET PO PRN ×4 (03:18→22:03)
[2017-06-11] MEDS: CEFAZOLIN 2 GM/D5W RTU 2 GM/50 ML RTUPB IV SCH ×3 (05:11→22:02)
[2017-06-11 05:31] LABS: HEMATOCRIT 29.1 % (37.9-51.0); HEMOGLOBIN 9.5 g/dL (13.5-17.0); MEAN CORPUSCULAR HGB CONC 32.7 g/dL (32.0-36.0); MEAN CORPUSCULAR VOLUME 83 fl (80-97); PLATELET COUNT 556 10^3/uL (150-450); RED BLOOD COUNT 3.51 10^6/uL (4.35-5.55); WHITE BLOOD COUNT 19.5 10^3/uL (4.0-10.5)
[2017-06-11 05:44] LABS: ANION GAP 8 (5-19); BLOOD UREA NITROGEN 11 mg/dL (7-20); CALCIUM 8.7 mg/dL (8.4-10.2); CARBON DIOXIDE 27 mmol/L (22-30); CHLORIDE 98 mmol/L (98-107); GLUCOSE 202 mg/dL (75-110); MAGNESIUM 1.9 mg/dL (1.6-2.3); POTASSIUM 4.1 mmol/L (3.6-5.0)
[2017-06-11] MEDS: FERROUS SULFATE 325 MG TABLET PO SCH ×2 (09:46→17:16)
[2017-06-11] MEDS: GABAPENTIN 300 MG CAPSULE PO SCH ×2 (09:46→22:03)
[2017-06-11] MEDS: NORMAL SALINE 10 ML SDV (SCHEDULED) IV SCH (09:47)
[2017-06-11] MEDS: POLYETHYLENE GLYCOL 3350 POWDER 17 GM/1 PACKET PO SCH (10:55)
--- NOTE | 2017-06-11 12:19 | PROGRESS NOTE E ---
Progress Note NAME: SUSHIL JARA : 1970 AGE: 46Y DATE: 06/11/2017 ROOM: 414 SUBJECTIVE: The patient is currently out of bed to the bedside chair. He states that he is having knee pain. Explained to the patient that this is going to be painful, however, the likelihood of being pain free completely is unlikely and alternative forms of pain management including deep breathing and distraction may be ideal. Discussed the plan with the patient that included scheduled NSAIDS and then breakthrough pain Percocet. I did make the patient aware that opiates such as morphine and oxycodone would not be scheduled. The patient is not tachycardic. The patient is not writhing. He is able to communicate. No objective evidence of severe pain. The patient is not tender to the touch either. The patient has been afebrile. His blood pressures have been in a good range. The patient does not voice any other concerns at this time. BRIEF HISTORY: The patient is a 46-year-old male with a past medical history of IV drug use. The patient presented to the emergency department due to fever, illness. After treatment for persistent bacteremia, the patient was sent to [facility] where he had a DOMINGO that was suggestive of tricuspid valve vegetation. The patient is to continue cefazolin 2 gm IV q.8 hours until June 28. This case has been discussed with Infectious Disease. The patient subsequently during his stay did develop aseptic arthritis of his right knee and has been seen twice by Dr. Brooks and been to the OR. Subsequently, he has a drain in place. The patient's pain management has been waxing and waning which has been discussed with the patient and at this time he is on a regimen of scheduled ibuprofen which he responds better to than longer acting naproxen or Celebrex with Percocet for breakthrough symptoms. Explained to the patient that IV opiates are not going to be considered with the current pain that he is having. The patient is also homeless and would like to speak to geriatric social worker. It does not appear he even has clothes. REVIEW OF SYSTEMS: Rest of review of systems is negative. MEDICATIONS: Medications have been reviewed. OBJECTIVE: GENERAL: The patient is a 46-year-old male who is awake, alert, and oriented to person, place, time and situation. He is verbal and conversational and does not appear to be in any acute distress. VITAL SIGNS FOLLOWS: Temperature is 98.6. Pulse 92. Respirations 16. Blood pressure is 109/60. Oxygen saturation 100% on room air. SKIN: Warm and dry. No rash. Not diaphoretic. HEENT: Pupils equal, round and reactive to light and accommodation. Conjunctivae are pink. NECK: No evidence of JVP. CARDIOVASCULAR SYSTEM: Heart is regular. There is no rub. CHEST: Clear, symmetrical, unlabored. ABDOMEN: Soft, nontender, nondistended. BACK: No CVA tenderness or sacral edema. EXTREMITIES: No clubbing, cyanosis, edema. PSYCHIATRIC: Appropriate affect. Pleasant mood. DIAGNOSTICS: Lab values are as follows: Hematology obtained on 06/11/2017: WBCs are 19.5, hemoglobin is 9.5, hematocrit is 29.1, platelet count is 566,000. Chemistry obtained on 06/11/2017: Sodium is 132, potassium 4.1, chloride is 98, carbon dioxide 27, BUN 11, creatinine is 0.43. Glucose 202. Calcium is 8.7, magnesium is 1.9. IMPRESSION AND PLAN: 1. METHICILLIN-SENSITIVE STAPHYLOCOCCUS AUREUS ENDOCARDITIS OF THE TRICUSPID VALVE. Continue Ancef 2 gm IV q. 8 hours until the 28 of June. The patient it appears will remain in the hospital until that time. 2. SEPTIC ARTHRITIS OF THE KNEE. The patient is currently being covered with ceftriaxone. The patient received gram-negative *------* coverage for 7 days even though the patient's fluids did not have any growth. This is being followed and managed as per Orthopedics. 3. IRON DEFICIENCY ANEMIA. The patient has been transfused blood. The patient has not been transfused iron given his active infection. Will continue his current doses of iron supplementation but I have added these to be administered with orange juice for vitamin C to assure absorption. 4. HYPONATREMIA. Asymptomatic. Will monitor. 5. DIABETES MELLITUS TYPE 2. The patient has been extremely well controlled. He has responded nicely to metformin with no change in creatinine. The patient's A1C has actually improved since the time of admission. Unfortunately, metformin fell off his MAR for about 48 hours and has just been resumed. Will continue this as well as a diabetic diet. Have discontinued Accu-Cheks given the stability of the patient's diabetes. DISPOSITION: The patient is a FULL CODE. Pending patient's symptomatology and diagnostic findings, will reevaluate in the a.m. TIME SPENT: Time spent on this followup including assessment, plan, physical examination, patient education, review of records is 25 minutes. DICTATING PHYSICIAN: VERO SANDOVAL NP [id number] PHY#: [id number] ID: [id number] JOB#: [id number] ACCT: [id number] cc: > MTDD
[2017-06-11] MEDS: IBUPROFEN 600 MG TABLET PO SCH ×2 (12:26→18:29)
--- NOTE | 2017-06-11 12:59 | PDOC PROGRESS REPORT ---
Subjective Progress Note for:: 06/11/17 Subjective:: Patient watching TV comfortably in bed. Reason For Visit: SEPSIS ENDOCARDITIS, POLYARTHRITIS, IV DRUG ABUSE Physical Exam Vital Signs: Temp Pulse Resp BP Pulse Ox 37.0 C 92 16 109/68 100 06/10/17 23:47 06/10/17 23:47 06/10/17 23:47 06/10/17 23:47 06/10/17 23:47 Pulse Oximeter Continuous Start: 05/05/17 11: 26 Freq: RTQ4 Status: Complete Document 05/11/17 08:00 JDR (Rec: 05/11/17 11:14 JDR [email or web address]) Pulse Oximetry Assessment Oxygen Saturation (92-100) 98 Oxygen Flow Rate (L/min) 2 Oxygen Delivery Method Nasal Cannula Equipment Usage Equipment in Use Continuous SpO2 Machine # 8 Intake & Output 06/10/17 06/11/17 06/12/17 06:59 06:59 06:59 Intake Total 1358 2065 Output Total 1220 2610 Balance 138 -545 Weight 67.4 kg 65.5 kg Adult Front & Back Image: 1 - Patient has -30 of extension to about 90 of flexion. Sanguinous drainage in the drain. Neurovascular intact distally with soft calf Results Laboratory Results: 06/11/17 05:15 06/11/17 05:15 06/11/17 06/11/17 05:15 05:15 WBC 19.5 H RBC 3.51 L Hgb 9.5 L Hct 29.1 L MCV 83 MCH 27.0 MCHC 32.7 RDW 17.0 H Plt Count 556 H Sodium 133.0 L Potassium 4.1 Chloride 98 Carbon Dioxide 27 Anion Gap 8 BUN 11 Creatinine 0.43 L Est GFR ( Amer) > 60 Est GFR (Non-Af Amer) > 60 Glucose 202 H Calcium 8.7 Magnesium 1.9 Impressions: Head CT 05/05/17 00:00 IMPRESSION: Limited negative study EVIDENCE OF ACUTE STROKE: NO. Lumbar Spine X-Ray 05/05/17 00:00 IMPRESSION: No acute fracture or malalignment. Multilevel disc space loss of height with anterior osteophyte formation Hip X-Ray 05/05/17 03:18 IMPRESSION: No acute findings. 2010 [employer]- All Rights Reserved Wrist X-Ray 05/05/17 03:18 IMPRESSION: No acute findings. Limited scaphoid views. 2010 [employer]- All Rights Reserved Chest X-Ray 05/05/17 03:23 IMPRESSION: No acute cardiopulmonary findings. 2010 [employer]- All Rights Reserved Guidance Fluoroscopy 05/12/17 00:00 IMPRESSION: SUCCESSFUL PLACEMENT OF A 5 FR DUAL LUMEN 35 CM PICC IN THE RIGHT BASILIC VEIN. Interventional Vascular Procedure 05/12/17 00:00 IMPRESSION: SUCCESSFUL PLACEMENT OF A 5 FR DUAL LUMEN 35 CM PICC IN THE RIGHT BASILIC VEIN. PICC Line Insertion 05/12/17 00:00 IMPRESSION: SUCCESSFUL PLACEMENT OF A 5 FR DUAL LUMEN 35 CM PICC IN THE RIGHT BASILIC VEIN. Knee X-Ray 05/26/17 00:00 IMPRESSION: Large suprapatellar knee joint effusion with air bubbles from septic joint. Soft tissue air bubbles in the medial right upper calf worrisome for infection with gas-forming organism. Lower Extremity MRI 05/26/17 00:00 IMPRESSION: No osteomyelitis. Septic joint containing fluid and gas and there is extensive fluid in the popliteal fossa communicating with the joint with both fluid and gas. Measures 13 cm. Mild edema in adjacent muscles. Tibia/Fibula X-Ray 05/26/17 00:00 IMPRESSION: LARGE JOINT EFFUSION. MULTIPLE BUBBLES OF GAS IN THE SOFT TISSUES OF THE PROXIMAL CALF. Assessment & Plan - Plan Summary Plan Summary: Patient is status post repeat I&D of the right knee. Drain output is still greater than 5 cc per shift. Drain stays in. Continue IV antibiotics.
[2017-06-11] MEDS ORDERED: METFORMIN HCL 500 MG TABLET PO ONE (13:00)
[2017-06-11] MEDS: METFORMIN HCL 500 MG TABLET PO SCH (16:28)
[2017-06-11] MEDS: ZOLPIDEM TARTRATE 5 MG TABLET PO SCH (22:03)
[2017-06-12] MEDS: IBUPROFEN 600 MG TABLET PO SCH ×4 (01:46→18:03)
[2017-06-12] MEDS: CEFAZOLIN 2 GM/D5W RTU 2 GM/50 ML RTUPB IV SCH ×3 (05:09→22:53)
[2017-06-12 06:48] LABS: HEMATOCRIT 30.8 % (37.9-51.0); MEAN CORPUSCULAR HEMOGLOBIN 27.1 pg (27.0-33.4); MEAN CORPUSCULAR HGB CONC 32.6 g/dL (32.0-36.0); MEAN CORPUSCULAR VOLUME 83 fl (80-97); PLATELET COUNT 519 10^3/uL (150-450); RED BLOOD COUNT 3.71 10^6/uL (4.35-5.55); RED CELL DISTRIBUTION WIDTH 17.4 % (11.5-14.0); WHITE BLOOD COUNT 16.1 10^3/uL (4.0-10.5)
[2017-06-12 07:02] LABS: ANION GAP 9 (5-19); BLOOD UREA NITROGEN 13 mg/dL (7-20); CALCIUM 8.7 mg/dL (8.4-10.2); CARBON DIOXIDE 29 mmol/L (22-30); CHLORIDE 101 mmol/L (98-107); GLUCOSE 140 mg/dL (75-110); POTASSIUM 4.4 mmol/L (3.6-5.0); SODIUM 139.4 mmol/L (137-145)
[2017-06-12] MEDS: METFORMIN HCL 500 MG TABLET PO SCH ×2 (07:37→15:49)
[2017-06-12] MEDS: GABAPENTIN 300 MG CAPSULE PO SCH (09:19)
[2017-06-12] MEDS: FERROUS SULFATE 325 MG TABLET PO SCH ×2 (09:19→17:16)
[2017-06-12] MEDS: POLYETHYLENE GLYCOL 3350 POWDER 17 GM/1 PACKET PO SCH (09:19)
[2017-06-12] MEDS: OXYCODONE-ACETAMINOPHEN 5-325 MG TABLET PO PRN ×3 (11:51→23:06)
[2017-06-12] MEDS ORDERED: ALTEPLASE INJ 2 MG VIAL (CATH CLEARANCE) INJ PRN (14:53)
--- NOTE | 2017-06-12 15:52 | PDOC PROGRESS REPORT ---
Subjective Progress Note for:: 06/12/17 Subjective:: The patient is resting in his bed. He states that overall he is feeling well and his pain is adequately controlled. He states that sometimes when he gets up and tries to ambulate he feels as if he needs a little extra pain medication. Otherwise he denies fever chills. No chest pain, shortness of breath or heart palpitations. No nausea, vomiting or diarrhea. No dysuria, frequency or hematuria. Reason For Visit: SEPSIS ENDOCARDITIS, POLYARTHRITIS, IV DRUG ABUSE Physical Exam Vital Signs: Temp Pulse Resp BP Pulse Ox 98.1 F 116 H 18 107/64 100 06/12/17 11:58 06/12/17 11:58 06/12/17 11:58 06/12/17 11:58 06/12/17 11:58 Pulse Oximeter Continuous Start: 05/05/17 11: 26 Freq: RTQ4 Status: Complete Document 05/11/17 08:00 JDR (Rec: 05/11/17 11:14 JDR [email or web address]) Pulse Oximetry Assessment Oxygen Saturation (92-100) 98 Oxygen Flow Rate (L/min) 2 Oxygen Delivery Method Nasal Cannula Equipment Usage Equipment in Use Continuous SpO2 Machine # 8 Intake & Output 06/11/17 06/12/17 06/13/17 06:59 06:59 06:59 Intake Total 2065 2205 Output Total 2610 1270 Balance -545 935 Weight 65.5 kg General appearance: PRESENT: no acute distress, well-developed, well-nourished Head exam: PRESENT: atraumatic, normocephalic Mouth exam: PRESENT: moist, tongue midline Neck exam: ABSENT: carotid bruit, JVD, lymphadenopathy, thyromegaly Respiratory exam: PRESENT: clear to auscultation antonio. ABSENT: rales, rhonchi, wheezes Cardiovascular exam: PRESENT: RRR. ABSENT: diastolic murmur, rubs, systolic murmur GI/Abdominal exam: PRESENT: normal bowel sounds, soft. ABSENT: distended, guarding, mass, organolmegaly, rebound, tenderness Rectal exam: PRESENT: deferred Musculoskeletal exam: PRESENT: other - There is a bandage in place with a drain from his right knee. It is draining red serosanguineous fluid. Neurological exam: PRESENT: alert, awake, oriented to person, oriented to place , oriented to time, oriented to situation, CN II-XII grossly intact. ABSENT: motor sensory deficit Psychiatric exam: PRESENT: appropriate affect, normal mood. ABSENT: homicidal ideation, suicidal ideation Skin exam: PRESENT: dry, intact, warm. ABSENT: cyanosis, rash Results Laboratory Results: 06/12/17 05:54 06/12/17 05:54 06/12/17 06/12/17 05:54 05:54 WBC 16.1 H RBC 3.71 L Hgb 10.0 L Hct 30.8 L MCV 83 MCH 27.1 MCHC 32.6 RDW 17.4 H Plt Count 519 H Sodium 139.4 Potassium 4.4 Chloride 101 Carbon Dioxide 29 Anion Gap 9 BUN 13 Creatinine 0.44 L Est GFR ( Amer) > 60 Est GFR (Non-Af Amer) > 60 Glucose 140 H Calcium 8.7 Magnesium 2.0 Impressions: Head CT 05/05/17 00:00 IMPRESSION: Limited negative study EVIDENCE OF ACUTE STROKE: NO. Lumbar Spine X-Ray 05/05/17 00:00 IMPRESSION: No acute fracture or malalignment. Multilevel disc space loss of height with anterior osteophyte formation Hip X-Ray 05/05/17 03:18 IMPRESSION: No acute findings. 2010 [employer]- All Rights Reserved Wrist X-Ray 05/05/17 03:18 IMPRESSION: No acute findings. Limited scaphoid views. 2010 [employer]- All Rights Reserved Chest X-Ray 05/05/17 03:23 IMPRESSION: No acute cardiopulmonary findings. 2010 [employer]- All Rights Reserved Guidance Fluoroscopy 05/12/17 00:00 IMPRESSION: SUCCESSFUL PLACEMENT OF A 5 FR DUAL LUMEN 35 CM PICC IN THE RIGHT BASILIC VEIN. Interventional Vascular Procedure 05/12/17 00:00 IMPRESSION: SUCCESSFUL PLACEMENT OF A 5 FR DUAL LUMEN 35 CM PICC IN THE RIGHT BASILIC VEIN. PICC Line Insertion 05/12/17 00:00 IMPRESSION: SUCCESSFUL PLACEMENT OF A 5 FR DUAL LUMEN 35 CM PICC IN THE RIGHT BASILIC VEIN. Knee X-Ray 05/26/17 00:00 IMPRESSION: Large suprapatellar knee joint effusion with air bubbles from septic joint. Soft tissue air bubbles in the medial right upper calf worrisome for infection with gas-forming organism. Lower Extremity MRI 05/26/17 00:00 IMPRESSION: No osteomyelitis. Septic joint containing fluid and gas and there is extensive fluid in the popliteal fossa communicating with the joint with both fluid and gas. Measures 13 cm. Mild edema in adjacent muscles. Tibia/Fibula X-Ray 05/26/17 00:00 IMPRESSION: LARGE JOINT EFFUSION. MULTIPLE BUBBLES OF GAS IN THE SOFT TISSUES OF THE PROXIMAL CALF. Assessment & Plan - Diagnosis (1) Endocarditis of tricuspid valve Is this a current diagnosis for this admission?: Yes Plan: The patient will be receiving parenteral antibiotics through June 28, 2017. He will remain in the hospital due to his history of IV drug use. (2) MRSA bacteremia Is this a current diagnosis for this admission?: Yes Plan: He had multiple positive blood cultures. These are all negative at this point. Continue current antibiotic therapy through June 12, 2017 (3) Septic arthritis Is this a current diagnosis for this admission?: Yes Plan: Orthopedic surgery is following. He has gone to the operating room. He does have increased pain. I discussed with him that we are not going to give parenteral narcotics. He would like to have available a one-time dose of extra pain medication in case it is really hurting after he gets up and ambulates. I have written a one-time oxycodone dose of 5 mg to be given daily for severe pain if needed. (4) Iron deficiency anemia Is this a current diagnosis for this admission?: Yes Plan: Continue ferrous sulfate (5) Hyponatremia Is this a current diagnosis for this admission?: Yes Plan: Resolved (6) Diabetes mellitus Is this a current diagnosis for this admission?: Yes Plan: Continue current regimen (7) Full code status Is this a current diagnosis for this admission?: Yes - Time Time Spent with patient: 25-34 minutes - Inpatient Certification Medical Necessity: Need For IV Fluids - Inpatient hospitalization remains necessary for long-term parenteral antibiotics through June 28, 2017. He is not safe for the patient to receive these in the outpatient setting due to his history of IV drug abuse.
[2017-06-12] MEDS: NORMAL SALINE 10 ML SDV (SCHEDULED) IV SCH (22:53)
[2017-06-12] MEDS: ZOLPIDEM TARTRATE 5 MG TABLET PO SCH (22:53)
[2017-06-13] MEDS: IBUPROFEN 600 MG TABLET PO SCH ×4 (04:25→20:22)
[2017-06-13] MEDS: CEFAZOLIN 2 GM/D5W RTU 2 GM/50 ML RTUPB IV SCH ×3 (05:23→21:36)
[2017-06-13 06:02] LABS: ABSOLUTE EOSINOPHILS # (AUTO) 0.1 10^3/uL (0.0-0.6); ABSOLUTE LYMPHOCYTES (AUTO) 5.2 10^3/uL (0.5-4.7); ABSOLUTE MONOCYTES (AUTO) 0.9 10^3/uL (0.1-1.4); ABSOLUTE NEUT (AUTO) 10.3 10^3/uL (1.7-8.2); BASOPHILS % (AUTO) 0.3 % (0-2); EOSINOPHILS % (AUTO) 0.8 % (0-6); HEMATOCRIT 27.4 % (37.9-51.0); HEMOGLOBIN 8.9 g/dL (13.5-17.0); LYMPHOCYTES % (AUTO) 31.3 % (13-45); MEAN CORPUSCULAR HEMOGLOBIN 27.1 pg (27.0-33.4); MEAN CORPUSCULAR HGB CONC 32.4 g/dL (32.0-36.0); MEAN CORPUSCULAR VOLUME 84 fl (80-97); MONOCYTES % (AUTO) 5.5 % (3-13); PLATELET COUNT 535 10^3/uL (150-450); RED BLOOD COUNT 3.28 10^6/uL (4.35-5.55); SEGMENTED NEUTROPHILS % (AUTO) 62.1 % (42-78); TOTAL CELLS COUNTED % (AUTO) 100 %; WHITE BLOOD COUNT 16.6 10^3/uL (4.0-10.5)
[2017-06-13] MEDS: NORMAL SALINE 10 ML SDV (AFTER EACH USE) IV PRN (06:08)
[2017-06-13 06:26] LABS: ANION GAP 8 (5-19); BLOOD UREA NITROGEN 11 mg/dL (7-20); CALCIUM 8.5 mg/dL (8.4-10.2); CARBON DIOXIDE 28 mmol/L (22-30); CHLORIDE 102 mmol/L (98-107); GLUCOSE 132 mg/dL (75-110); MAGNESIUM 1.9 mg/dL (1.6-2.3); POTASSIUM 4.2 mmol/L (3.6-5.0); SODIUM 138.2 mmol/L (137-145)
[2017-06-13] MEDS: METFORMIN HCL 500 MG TABLET PO SCH ×2 (08:55→16:45)
[2017-06-13] MEDS: OXYCODONE HCL IR 5 MG TABLET PO PRN (08:55)
[2017-06-13] MEDS: NORMAL SALINE 10 ML SDV (SCHEDULED) IV SCH ×2 (08:56→21:36)
[2017-06-13] MEDS: POLYETHYLENE GLYCOL 3350 POWDER 17 GM/1 PACKET PO SCH (08:56)
[2017-06-13] MEDS: FERROUS SULFATE 325 MG TABLET PO SCH (08:56)
--- NOTE | 2017-06-13 09:48 | PDOC PROGRESS REPORT ---
Subjective Progress Note for:: 06/13/17 Subjective:: Patient lying in bed comfortably. Denies fever chills or sweats. Continues to see improved ambulation range of motion in physical therapy. Reason For Visit: SEPSIS ENDOCARDITIS, POLYARTHRITIS, IV DRUG ABUSE Physical Exam Vital Signs: Temp Pulse Resp BP Pulse Ox 98.7 F 95 16 125/72 100 06/13/17 07:31 06/13/17 07:31 06/13/17 07:31 06/13/17 07:31 06/13/17 07:31 Pulse Oximeter Continuous Start: 05/05/17 11: 26 Freq: RTQ4 Status: Complete Document 05/11/17 08:00 JDR (Rec: 05/11/17 11:14 JDR [email or web address]) Pulse Oximetry Assessment Oxygen Saturation (92-100) 98 Oxygen Flow Rate (L/min) 2 Oxygen Delivery Method Nasal Cannula Equipment Usage Equipment in Use Continuous SpO2 Machine # 8 Intake & Output 06/12/17 06/13/17 06/14/17 06:59 06:59 06:59 Intake Total 2205 1766 Output Total 1270 1420 Balance 935 346 Musculoskeletal exam: PRESENT: other - Right knee: Bloody serosanguineous drainage no active purulence. No evidence of effusion. Surgical incisions healing. Knee range of motion 25-90. Pain with terminal flexion and extension. Results Laboratory Results: 06/13/17 04:12 06/13/17 04:12 06/13/17 06/13/17 04:12 04:12 WBC 16.6 H RBC 3.28 L Hgb 8.9 L Hct 27.4 L MCV 84 MCH 27.1 MCHC 32.4 RDW 17.0 H Plt Count 535 H Seg Neutrophils % 62.1 Lymphocytes % 31.3 Monocytes % 5.5 Eosinophils % 0.8 Basophils % 0.3 Absolute Neutrophils 10.3 H Absolute Lymphocytes 5.2 H Absolute Monocytes 0.9 Absolute Eosinophils 0.1 Absolute Basophils 0.0 Sodium 138.2 Potassium 4.2 Chloride 102 Carbon Dioxide 28 Anion Gap 8 BUN 11 Creatinine 0.38 L Est GFR ( Amer) > 60 Est GFR (Non-Af Amer) > 60 Glucose 132 H Calcium 8.5 Magnesium 1.9 Impressions: Head CT 05/05/17 00:00 IMPRESSION: Limited negative study EVIDENCE OF ACUTE STROKE: NO. Lumbar Spine X-Ray 05/05/17 00:00 IMPRESSION: No acute fracture or malalignment. Multilevel disc space loss of height with anterior osteophyte formation Hip X-Ray 05/05/17 03:18 IMPRESSION: No acute findings. 2010 [employer]- All Rights Reserved Wrist X-Ray 05/05/17 03:18 IMPRESSION: No acute findings. Limited scaphoid views. 2010 [employer]- All Rights Reserved Chest X-Ray 05/05/17 03:23 IMPRESSION: No acute cardiopulmonary findings. 2010 [employer]- All Rights Reserved Guidance Fluoroscopy 05/12/17 00:00 IMPRESSION: SUCCESSFUL PLACEMENT OF A 5 FR DUAL LUMEN 35 CM PICC IN THE RIGHT BASILIC VEIN. Interventional Vascular Procedure 05/12/17 00:00 IMPRESSION: SUCCESSFUL PLACEMENT OF A 5 FR DUAL LUMEN 35 CM PICC IN THE RIGHT BASILIC VEIN. PICC Line Insertion 05/12/17 00:00 IMPRESSION: SUCCESSFUL PLACEMENT OF A 5 FR DUAL LUMEN 35 CM PICC IN THE RIGHT BASILIC VEIN. Knee X-Ray 05/26/17 00:00 IMPRESSION: Large suprapatellar knee joint effusion with air bubbles from septic joint. Soft tissue air bubbles in the medial right upper calf worrisome for infection with gas-forming organism. Lower Extremity MRI 05/26/17 00:00 IMPRESSION: No osteomyelitis. Septic joint containing fluid and gas and there is extensive fluid in the popliteal fossa communicating with the joint with both fluid and gas. Measures 13 cm. Mild edema in adjacent muscles. Tibia/Fibula X-Ray 05/26/17 00:00 IMPRESSION: LARGE JOINT EFFUSION. MULTIPLE BUBBLES OF GAS IN THE SOFT TISSUES OF THE PROXIMAL CALF. Assessment & Plan - Diagnosis (1) Myalgia Is this a current diagnosis for this admission?: No (2) Septic arthritis of knee, right Qualifiers: Septic arthritis organism: due to unspecified organism Qualified Code(s): M00.9 - Pyogenic arthritis, unspecified Is this a current diagnosis for this admission?: Yes Plan: Status post arthroscopic I&D, I&D right leg 05/27/17 #1 continue IV meropenem #2 pain control. #3 physical therapy partial weightbearing right lower extremity #4 ADA drain DC'd today given the longevity and concern of possible introducing further infection. Patient will continue on IV antibiotics as per hospitalist recommendation.
[2017-06-13] MEDS: OXYCODONE-ACETAMINOPHEN 5-325 MG TABLET PO PRN ×2 (13:09→17:50)
--- NOTE | 2017-06-13 14:10 | PDOC PROGRESS REPORT ---
Subjective Subjective:: The patient is an unfortunate 46-year-old gentleman with a history of IV drug use. He is currently in the hospital receiving long-term IV antibiotics through June 28, 2017 for endocarditis. He also was found to have a septic joint is gone to the operating room. He had his drain removed today. He can be partially weightbearing with physical therapy. The patient is resting in his bed. He states that overall he is feeling well and his pain is adequately controlled. He states his pain does hurt more when he gets up with physical therapy and he now has an additional dose of oxycodone available once a day because of this. Otherwise he denies fever chills. No chest pain, shortness of breath or heart palpitations. No nausea, vomiting or diarrhea. No dysuria, frequency or hematuria. Reason For Visit: SEPSIS ENDOCARDITIS, POLYARTHRITIS, IV DRUG ABUSE Physical Exam Vital Signs: Temp Pulse Resp BP Pulse Ox 98.4 F 96 20 112/66 100 06/13/17 11:41 06/13/17 11:41 06/13/17 11:41 06/13/17 11:41 06/13/17 11:41 Pulse Oximeter Continuous Start: 05/05/17 11: 26 Freq: RTQ4 Status: Complete Document 05/11/17 08:00 JDR (Rec: 05/11/17 11:14 JDR [email or web address]) Pulse Oximetry Assessment Oxygen Saturation (92-100) 98 Oxygen Flow Rate (L/min) 2 Oxygen Delivery Method Nasal Cannula Equipment Usage Equipment in Use Continuous SpO2 Machine # 8 Intake & Output 06/12/17 06/13/17 06/14/17 06:59 06:59 06:59 Intake Total 2205 1766 Output Total 1270 1420 15 Balance 935 346 -15 General appearance: PRESENT: no acute distress, well-developed, well-nourished Eye exam: PRESENT: conjunctiva pink, EOMI, PERRLA. ABSENT: scleral icterus Mouth exam: PRESENT: moist, tongue midline Respiratory exam: PRESENT: clear to auscultation antonio. ABSENT: rales, rhonchi, wheezes Cardiovascular exam: PRESENT: RRR. ABSENT: diastolic murmur, rubs, systolic murmur GI/Abdominal exam: PRESENT: normal bowel sounds, soft. ABSENT: distended, guarding, mass, organolmegaly, rebound, tenderness Rectal exam: PRESENT: deferred Extremities exam: ABSENT: calf tenderness, clubbing, pedal edema Skin exam: PRESENT: other - Right lower extremity with a bandage in place it was not removed because of the time of this dictation. Results Laboratory Results: 06/13/17 04:12 06/13/17 04:12 06/13/17 06/13/17 04:12 04:12 WBC 16.6 H RBC 3.28 L Hgb 8.9 L Hct 27.4 L MCV 84 MCH 27.1 MCHC 32.4 RDW 17.0 H Plt Count 535 H Seg Neutrophils % 62.1 Lymphocytes % 31.3 Monocytes % 5.5 Eosinophils % 0.8 Basophils % 0.3 Absolute Neutrophils 10.3 H Absolute Lymphocytes 5.2 H Absolute Monocytes 0.9 Absolute Eosinophils 0.1 Absolute Basophils 0.0 Sodium 138.2 Potassium 4.2 Chloride 102 Carbon Dioxide 28 Anion Gap 8 BUN 11 Creatinine 0.38 L Est GFR ( Amer) > 60 Est GFR (Non-Af Amer) > 60 Glucose 132 H Calcium 8.5 Magnesium 1.9 Impressions: Head CT 05/05/17 00:00 IMPRESSION: Limited negative study EVIDENCE OF ACUTE STROKE: NO. Lumbar Spine X-Ray 05/05/17 00:00 IMPRESSION: No acute fracture or malalignment. Multilevel disc space loss of height with anterior osteophyte formation Hip X-Ray 05/05/17 03:18 IMPRESSION: No acute findings. 2010 [employer]- All Rights Reserved Wrist X-Ray 05/05/17 03:18 IMPRESSION: No acute findings. Limited scaphoid views. 2010 [employer]- All Rights Reserved Chest X-Ray 05/05/17 03:23 IMPRESSION: No acute cardiopulmonary findings. 2010 [employer]- All Rights Reserved Guidance Fluoroscopy 05/12/17 00:00 IMPRESSION: SUCCESSFUL PLACEMENT OF A 5 FR DUAL LUMEN 35 CM PICC IN THE RIGHT BASILIC VEIN. Interventional Vascular Procedure 05/12/17 00:00 IMPRESSION: SUCCESSFUL PLACEMENT OF A 5 FR DUAL LUMEN 35 CM PICC IN THE RIGHT BASILIC VEIN. PICC Line Insertion 05/12/17 00:00 IMPRESSION: SUCCESSFUL PLACEMENT OF A 5 FR DUAL LUMEN 35 CM PICC IN THE RIGHT BASILIC VEIN. Knee X-Ray 05/26/17 00:00 IMPRESSION: Large suprapatellar knee joint effusion with air bubbles from septic joint. Soft tissue air bubbles in the medial right upper calf worrisome for infection with gas-forming organism. Lower Extremity MRI 05/26/17 00:00 IMPRESSION: No osteomyelitis. Septic joint containing fluid and gas and there is extensive fluid in the popliteal fossa communicating with the joint with both fluid and gas. Measures 13 cm. Mild edema in adjacent muscles. Tibia/Fibula X-Ray 05/26/17 00:00 IMPRESSION: LARGE JOINT EFFUSION. MULTIPLE BUBBLES OF GAS IN THE SOFT TISSUES OF THE PROXIMAL CALF. Assessment & Plan - Diagnosis (1) Endocarditis of tricuspid valve Is this a current diagnosis for this admission?: Yes Plan: The patient will be receiving parenteral antibiotics through June 28, 2017. He will remain in the hospital due to his history of IV drug use. (2) Bacteremia Is this a current diagnosis for this admission?: Yes Plan: He had MSSA bacteremia and multiple cultures. Subsequently they have been negative. Documented as MRSA bacteremia yesterday incorrectly. He will continue current IV antibiotics through June 28, 2017 (3) Septic arthritis Is this a current diagnosis for this admission?: Yes Plan: Orthopedic surgery is following. He has gone to the operating room. He does have increased pain. I discussed with him that we are not going to give parenteral narcotics. He would like to have available a one-time dose of extra pain medication in case it is really hurting after he gets up and ambulates. I have written a one-time oxycodone dose of 5 mg to be given daily for severe pain if needed. (4) Iron deficiency anemia Is this a current diagnosis for this admission?: Yes Plan: Continue ferrous sulfate (5) Hyponatremia Is this a current diagnosis for this admission?: Yes Plan: Resolved (6) Diabetes mellitus Is this a current diagnosis for this admission?: Yes Plan: Continue current regimen (7) Full code status Is this a current diagnosis for this admission?: Yes - Time Time Spent with patient: 15-24 minutes - Inpatient Certification Medical Necessity: Need for IV Antibiotics - Inpatient hospitalization remains necessary for long-term IV antibiotics. He will complete his course of therapy on June 28, 2017. I do believe we need to touch base with infectious disease to see if any further antibiotic therapy is needed due to his septic joint.
[2017-06-14] MEDS: IBUPROFEN 600 MG TABLET PO SCH ×4 (02:10→19:43)
[2017-06-14] MEDS: OXYCODONE-ACETAMINOPHEN 5-325 MG TABLET PO PRN ×3 (02:19→09:38)
[2017-06-14] MEDS: CEFAZOLIN 2 GM/D5W RTU 2 GM/50 ML RTUPB IV SCH ×3 (05:36→23:11)
[2017-06-14] MEDS: NORMAL SALINE 10 ML SDV (AFTER EACH USE) IV PRN (06:24)
[2017-06-14 06:36] LABS: ABSOLUTE BASOPHILS # (AUTO) 0.1 10^3/uL (0.0-0.2); ABSOLUTE EOSINOPHILS # (AUTO) 0.1 10^3/uL (0.0-0.6); ABSOLUTE MONOCYTES (AUTO) 0.9 10^3/uL (0.1-1.4); ABSOLUTE NEUT (AUTO) 11.3 10^3/uL (1.7-8.2); BASOPHILS % (AUTO) 0.3 % (0-2); EOSINOPHILS % (AUTO) 0.5 % (0-6); HEMATOCRIT 27.3 % (37.9-51.0); LYMPHOCYTES % (AUTO) 28.7 % (13-45); MEAN CORPUSCULAR HEMOGLOBIN 27.1 pg (27.0-33.4); MEAN CORPUSCULAR VOLUME 82 fl (80-97); MONOCYTES % (AUTO) 5.3 % (3-13); PLATELET COUNT 552 10^3/uL (150-450); RED BLOOD COUNT 3.33 10^6/uL (4.35-5.55); SEGMENTED NEUTROPHILS % (AUTO) 65.2 % (42-78); TOTAL CELLS COUNTED % (AUTO) 100 %; WHITE BLOOD COUNT 17.3 10^3/uL (4.0-10.5)
[2017-06-14 06:53] LABS: ALANINE AMINOTRANSFERASE 28 U/L (21-72); ALBUMIN 2.9 g/dL (3.5-5.0); ALKALINE PHOSPHATASE 94 U/L (38-126); ANION GAP 9 (5-19); ASPARTATE AMINO TRANSFERASE 19 U/L (17-59); BILIRUBIN,DIRECT 0.2 mg/dL (0.0-0.4); BILIRUBIN,TOTAL 0.2 mg/dL (0.2-1.3); BLOOD UREA NITROGEN 13 mg/dL (7-20); CALCIUM 8.6 mg/dL (8.4-10.2); CARBON DIOXIDE 27 mmol/L (22-30); CHLORIDE 102 mmol/L (98-107); GLUCOSE 113 mg/dL (75-110); MAGNESIUM 1.7 mg/dL (1.6-2.3); POTASSIUM 4.3 mmol/L (3.6-5.0); SODIUM 138.1 mmol/L (137-145); TOTAL PROTEIN 7.3 g/dL (6.3-8.2)
[2017-06-14] MEDS: POLYETHYLENE GLYCOL 3350 POWDER 17 GM/1 PACKET PO SCH (09:37)
[2017-06-14] MEDS: NORMAL SALINE 10 ML SDV (SCHEDULED) IV SCH ×2 (09:38→23:11)
[2017-06-14] MEDS: METFORMIN HCL 500 MG TABLET PO SCH ×2 (09:38→16:01)
[2017-06-14] MEDS: OXYCODONE HCL IR 5 MG TABLET PO PRN (16:02)
--- NOTE | 2017-06-14 18:48 | PDOC PROGRESS REPORT ---
Subjective Progress Note for:: 06/14/17 Subjective:: Subjective:: The patient is an unfortunate 46-year-old gentleman with a history of IV drug use. He is currently in the hospital receiving long-term IV antibiotics through June 28, 2017 for endocarditis. He also was found to have a septic joint is gone to the operating room. He had his drain removed today. He can be partially weightbearing with physical therapy. The patient is resting in his bed. He states that overall he is feeling well and his pain is adequately controlled. He states his pain does hurt more when he gets up with physical therapy and he now has an additional dose of oxycodone available once a day because of this. Otherwise he denies fever chills. No chest pain, shortness of breath or heart palpitations. No nausea, vomiting or diarrhea. No dysuria, frequency or hematuria. Reason For Visit: SEPSIS ENDOCARDITIS, POLYARTHRITIS, IV DRUG ABUSE Physical Exam Vital Signs: Temp Pulse Resp BP Pulse Ox 98.4 F 108 H 16 114/67 99 06/14/17 16:00 06/14/17 16:00 06/14/17 16:00 06/14/17 16:00 06/14/17 16:00 Pulse Oximeter Continuous Start: 05/05/17 11: 26 Freq: RTQ4 Status: Complete Document 05/11/17 08:00 JDR (Rec: 05/11/17 11:14 JDR [email or web address]) Pulse Oximetry Assessment Oxygen Saturation (92-100) 98 Oxygen Flow Rate (L/min) 2 Oxygen Delivery Method Nasal Cannula Equipment Usage Equipment in Use Continuous SpO2 Machine # 8 Intake & Output 06/13/17 06/14/17 06/15/17 06:59 06:59 06:59 Intake Total 1766 1086 1320 Output Total 1420 1215 600 Balance 346 -129 720 General appearance: PRESENT: no acute distress, well-developed, well-nourished Head exam: PRESENT: atraumatic, normocephalic Eye exam: PRESENT: conjunctiva pink, EOMI, PERRLA. ABSENT: scleral icterus Ear exam: PRESENT: normal external ear exam Mouth exam: PRESENT: moist, tongue midline Neck exam: ABSENT: carotid bruit, JVD, lymphadenopathy, thyromegaly Respiratory exam: PRESENT: clear to auscultation antonio. ABSENT: rales, rhonchi, wheezes Cardiovascular exam: PRESENT: RRR. ABSENT: diastolic murmur, rubs, systolic murmur Pulses: PRESENT: normal dorsalis pedis pul Vascular exam: PRESENT: normal capillary refill GI/Abdominal exam: PRESENT: normal bowel sounds, soft. ABSENT: distended, guarding, mass, organolmegaly, rebound, tenderness Rectal exam: PRESENT: deferred Extremities exam: PRESENT: full ROM. ABSENT: calf tenderness, clubbing, pedal edema Neurological exam: PRESENT: alert, awake, oriented to person, oriented to place , oriented to time, oriented to situation, CN II-XII grossly intact. ABSENT: motor sensory deficit Psychiatric exam: PRESENT: appropriate affect, normal mood. ABSENT: homicidal ideation, suicidal ideation Skin exam: PRESENT: dry, intact, warm. ABSENT: cyanosis, rash Results Laboratory Results: 06/14/17 05:36 06/14/17 05:36 06/14/17 06/14/17 05:36 05:36 WBC 17.3 H RBC 3.33 L Hgb 9.0 L Hct 27.3 L MCV 82 MCH 27.1 MCHC 33.0 RDW 17.0 H Plt Count 552 H Seg Neutrophils % 65.2 Lymphocytes % 28.7 Monocytes % 5.3 Eosinophils % 0.5 Basophils % 0.3 Absolute Neutrophils 11.3 H Absolute Lymphocytes 5.0 H Absolute Monocytes 0.9 Absolute Eosinophils 0.1 Absolute Basophils 0.1 Sodium 138.1 Potassium 4.3 Chloride 102 Carbon Dioxide 27 Anion Gap 9 BUN 13 Creatinine 0.43 L Est GFR ( Amer) > 60 Est GFR (Non-Af Amer) > 60 Glucose 113 H Calcium 8.6 Magnesium 1.7 Total Bilirubin 0.2 AST 19 ALT 28 Alkaline Phosphatase 94 Total Protein 7.3 Albumin 2.9 L Impressions: Head CT 05/05/17 00:00 IMPRESSION: Limited negative study EVIDENCE OF ACUTE STROKE: NO. Lumbar Spine X-Ray 05/05/17 00:00 IMPRESSION: No acute fracture or malalignment. Multilevel disc space loss of height with anterior osteophyte formation Hip X-Ray 05/05/17 03:18 IMPRESSION: No acute findings. 2010 [employer]- All Rights Reserved Wrist X-Ray 05/05/17 03:18 IMPRESSION: No acute findings. Limited scaphoid views. 2010 [employer]- All Rights Reserved Chest X-Ray 05/05/17 03:23 IMPRESSION: No acute cardiopulmonary findings. 2010 [employer]- All Rights Reserved Guidance Fluoroscopy 05/12/17 00:00 IMPRESSION: SUCCESSFUL PLACEMENT OF A 5 FR DUAL LUMEN 35 CM PICC IN THE RIGHT BASILIC VEIN. Interventional Vascular Procedure 05/12/17 00:00 IMPRESSION: SUCCESSFUL PLACEMENT OF A 5 FR DUAL LUMEN 35 CM PICC IN THE RIGHT BASILIC VEIN. PICC Line Insertion 05/12/17 00:00 IMPRESSION: SUCCESSFUL PLACEMENT OF A 5 FR DUAL LUMEN 35 CM PICC IN THE RIGHT BASILIC VEIN. Knee X-Ray 05/26/17 00:00 IMPRESSION: Large suprapatellar knee joint effusion with air bubbles from septic joint. Soft tissue air bubbles in the medial right upper calf worrisome for infection with gas-forming organism. Lower Extremity MRI 05/26/17 00:00 IMPRESSION: No osteomyelitis. Septic joint containing fluid and gas and there is extensive fluid in the popliteal fossa communicating with the joint with both fluid and gas. Measures 13 cm. Mild edema in adjacent muscles. Tibia/Fibula X-Ray 05/26/17 00:00 IMPRESSION: LARGE JOINT EFFUSION. MULTIPLE BUBBLES OF GAS IN THE SOFT TISSUES OF THE PROXIMAL CALF. Assessment & Plan - Time Time Spent with patient: 15-24 minutes - Inpatient Certification Based on my medical assessment, after consideration of the patient's comorbidities, presenting symptoms, or acuity I expect that the services needed warrant INPATIENT care.: Yes Medical Necessity: Need for IV Antibiotics - Due to his history of IVDA patient is unable to be discharged with an indwelling vascular catheterization will need to remain in hospital for duration of his antibiotics. 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 Due to his history of IV drug abuse remaining hospital for the duration of treatment. 2. Bacteremia with methicillin sensitive Staphylococcus aureus. His last cultures have been negative 3. Septic arthritis related to his bacteremia. He has been seen by orthopedics 4. Iron deficiency anemia likely secondary to his nutritional status and acute illness 5. Hyponatremia resolved 6. Type 2 diabetes mellitus controlled 07 patient is full code
[2017-06-14] MEDS ORDERED: ZOLPIDEM TARTRATE 5 MG TABLET PO ONE (23:30)
[2017-06-15] MEDS: IBUPROFEN 600 MG TABLET PO SCH ×4 (04:19→18:05)
[2017-06-15] MEDS: CEFAZOLIN 2 GM/D5W RTU 2 GM/50 ML RTUPB IV SCH ×3 (06:28→23:01)
[2017-06-15] MEDS: OXYCODONE-ACETAMINOPHEN 5-325 MG TABLET PO PRN ×3 (06:29→19:47)
[2017-06-15] MEDS: METFORMIN HCL 500 MG TABLET PO SCH ×2 (08:06→15:15)
[2017-06-15] MEDS: NORMAL SALINE 10 ML SDV (SCHEDULED) IV SCH ×2 (09:27→23:02)
[2017-06-15] MEDS: POLYETHYLENE GLYCOL 3350 POWDER 17 GM/1 PACKET PO SCH (09:27)
[2017-06-15] MEDS: OXYCODONE HCL IR 5 MG TABLET PO PRN (15:15)
--- NOTE | 2017-06-15 18:21 | PDOC PROGRESS REPORT ---
Subjective Progress Note for:: 06/15/17 Subjective:: Subjective:: The patient is an unfortunate 46-year-old gentleman with a history of IV drug use. He is currently in the hospital receiving long-term IV antibiotics through June 28, 2017 for endocarditis. He also was found to have a septic joint is gone to the operating room. He had his drain removed today. He can be partially weightbearing with physical therapy. The patient is resting in his bed. He states that overall he is feeling well and his pain is adequately controlled. Otherwise he denies fever chills. No chest pain, shortness of breath or heart palpitations. No nausea, vomiting or diarrhea. No dysuria, frequency or hematuria. Reason For Visit: SEPSIS ENDOCARDITIS, POLYARTHRITIS, IV DRUG ABUSE Physical Exam Vital Signs: Temp Pulse Resp BP Pulse Ox 98.2 F 95 16 114/74 100 06/15/17 15:46 06/15/17 15:46 06/15/17 15:46 06/15/17 15:46 06/15/17 15:46 Pulse Oximeter Continuous Start: 05/05/17 11: 26 Freq: RTQ4 Status: Complete Document 05/11/17 08:00 JDR (Rec: 05/11/17 11:14 JDR [email or web address]) Pulse Oximetry Assessment Oxygen Saturation (92-100) 98 Oxygen Flow Rate (L/min) 2 Oxygen Delivery Method Nasal Cannula Equipment Usage Equipment in Use Continuous SpO2 Machine # 8 Intake & Output 06/14/17 06/15/17 06/16/17 06:59 06:59 06:59 Intake Total 1086 1640 Output Total 1215 1830 Balance -129 -190 General appearance: PRESENT: no acute distress, cooperative Head exam: PRESENT: atraumatic, normocephalic Eye exam: PRESENT: conjunctiva pink, EOMI, PERRLA. ABSENT: scleral icterus Ear exam: PRESENT: normal external ear exam Mouth exam: PRESENT: moist, tongue midline Neck exam: ABSENT: carotid bruit, JVD, lymphadenopathy, thyromegaly Respiratory exam: PRESENT: clear to auscultation antonio. ABSENT: rales, rhonchi, wheezes Cardiovascular exam: PRESENT: RRR. ABSENT: diastolic murmur, rubs, systolic murmur Pulses: PRESENT: normal dorsalis pedis pul Vascular exam: PRESENT: normal capillary refill GI/Abdominal exam: PRESENT: normal bowel sounds, soft. ABSENT: distended, guarding, mass, organolmegaly, rebound, tenderness Rectal exam: PRESENT: deferred Extremities exam: PRESENT: full ROM. ABSENT: calf tenderness, clubbing, pedal edema Musculoskeletal exam: PRESENT: other - R knee in dressing Neurological exam: PRESENT: alert, awake, oriented to person, oriented to place , oriented to time, oriented to situation, CN II-XII grossly intact. ABSENT: motor sensory deficit Psychiatric exam: PRESENT: appropriate affect, normal mood. ABSENT: homicidal ideation, suicidal ideation Skin exam: PRESENT: dry, intact, warm. ABSENT: cyanosis, rash Results Laboratory Results: 06/14/17 05:36 06/14/17 05:36 Impressions: Head CT 05/05/17 00:00 IMPRESSION: Limited negative study EVIDENCE OF ACUTE STROKE: NO. Lumbar Spine X-Ray 05/05/17 00:00 IMPRESSION: No acute fracture or malalignment. Multilevel disc space loss of height with anterior osteophyte formation Hip X-Ray 05/05/17 03:18 IMPRESSION: No acute findings. 2010 [email or web address]- All Rights Reserved Wrist X-Ray 05/05/17 03:18 IMPRESSION: No acute findings. Limited scaphoid views. 2010 [email or web address]- All Rights Reserved Chest X-Ray 05/05/17 03:23 IMPRESSION: No acute cardiopulmonary findings. 2010 [email or web address]- All Rights Reserved Guidance Fluoroscopy 05/12/17 00:00 IMPRESSION: SUCCESSFUL PLACEMENT OF A 5 FR DUAL LUMEN 35 CM PICC IN THE RIGHT BASILIC VEIN. Interventional Vascular Procedure 05/12/17 00:00 IMPRESSION: SUCCESSFUL PLACEMENT OF A 5 FR DUAL LUMEN 35 CM PICC IN THE RIGHT BASILIC VEIN. PICC Line Insertion 05/12/17 00:00 IMPRESSION: SUCCESSFUL PLACEMENT OF A 5 FR DUAL LUMEN 35 CM PICC IN THE RIGHT BASILIC VEIN. Knee X-Ray 05/26/17 00:00 IMPRESSION: Large suprapatellar knee joint effusion with air bubbles from septic joint. Soft tissue air bubbles in the medial right upper calf worrisome for infection with gas-forming organism. Lower Extremity MRI 05/26/17 00:00 IMPRESSION: No osteomyelitis. Septic joint containing fluid and gas and there is extensive fluid in the popliteal fossa communicating with the joint with both fluid and gas. Measures 13 cm. Mild edema in adjacent muscles. Tibia/Fibula X-Ray 05/26/17 00:00 IMPRESSION: LARGE JOINT EFFUSION. MULTIPLE BUBBLES OF GAS IN THE SOFT TISSUES OF THE PROXIMAL CALF. Assessment & Plan - Time Time Spent with patient: 15-24 minutes Anticipated discharge: Home - Inpatient Certification Medical Necessity: Need for IV Antibiotics - Plan Summary Plan Summary: Assessment and plan Current diagnosis for this admission #1 endocarditis of tricuspid valve currently on parenteral antibiotics through June 28. Due to his history of IV drug abuse he will remain in hospital for the duration of treatment. 2. Bacteremia with methicillin sensitive Staphylococcus aureus. His Blood cultures have been negative since 05/25 3. Septic arthritis related to his bacteremia. Continue pain management 4. Iron deficiency anemia likely secondary to his nutritional status and acute illness 5. Hyponatremia resolved 6. Type 2 diabetes mellitus controlled 07 patient is full code
[2017-06-15] MEDS ORDERED: ZOLPIDEM TARTRATE 5 MG TABLET PO SCH (22:00)
[2017-06-15] MEDS: ZOLPIDEM TARTRATE 5 MG TABLET PO PRN (23:12)
[2017-06-16] MEDS: IBUPROFEN 600 MG TABLET PO SCH ×4 (04:40→18:06)
[2017-06-16] MEDS: OXYCODONE-ACETAMINOPHEN 5-325 MG TABLET PO PRN ×4 (04:52→20:24)
[2017-06-16] MEDS: CEFAZOLIN 2 GM/D5W RTU 2 GM/50 ML RTUPB IV SCH ×3 (05:01→21:34)
[2017-06-16] MEDS: NORMAL SALINE 10 ML SDV (AFTER EACH USE) IV PRN (05:59)
[2017-06-16 06:32] LABS: ABSOLUTE BASOPHILS # (AUTO) 0.1 10^3/uL (0.0-0.2); ABSOLUTE EOSINOPHILS # (AUTO) 0.1 10^3/uL (0.0-0.6); ABSOLUTE LYMPHOCYTES (AUTO) 5.6 10^3/uL (0.5-4.7); ABSOLUTE NEUT (AUTO) 11.3 10^3/uL (1.7-8.2); BASOPHILS % (AUTO) 0.5 % (0-2); EOSINOPHILS % (AUTO) 0.4 % (0-6); HEMATOCRIT 28.6 % (37.9-51.0); HEMOGLOBIN 9.6 g/dL (13.5-17.0); LYMPHOCYTES % (AUTO) 31.1 % (13-45); MEAN CORPUSCULAR HGB CONC 33.4 g/dL (32.0-36.0); MEAN CORPUSCULAR VOLUME 81 fl (80-97); MONOCYTES % (AUTO) 5.4 % (3-13); PLATELET COUNT 584 10^3/uL (150-450); RED BLOOD COUNT 3.54 10^6/uL (4.35-5.55); RED CELL DISTRIBUTION WIDTH 16.8 % (11.5-14.0); SEGMENTED NEUTROPHILS % (AUTO) 62.6 % (42-78); TOTAL CELLS COUNTED % (AUTO) 100 %
[2017-06-16 06:59] LABS: ANION GAP 10 (5-19); BLOOD UREA NITROGEN 11 mg/dL (7-20); CALCIUM 8.8 mg/dL (8.4-10.2); CARBON DIOXIDE 27 mmol/L (22-30); CHLORIDE 98 mmol/L (98-107); GLUCOSE 133 mg/dL (75-110); POTASSIUM 4.5 mmol/L (3.6-5.0); SODIUM 135.2 mmol/L (137-145)
[2017-06-16] MEDS: METFORMIN HCL 500 MG TABLET PO SCH ×2 (09:22→18:06)
[2017-06-16] MEDS: NORMAL SALINE 10 ML SDV (SCHEDULED) IV SCH ×2 (09:23→21:34)
[2017-06-16] MEDS: POLYETHYLENE GLYCOL 3350 POWDER 17 GM/1 PACKET PO SCH (09:23)
[2017-06-16] MEDS: OXYCODONE HCL IR 5 MG TABLET PO PRN (14:54)
--- NOTE | 2017-06-16 16:11 | PDOC PROGRESS REPORT ---
Subjective Progress Note for:: 06/16/17 Subjective:: Patient lying in bed comfortably. Denies fever chills or sweats. Continues to see improved ambulation and range of motion in physical therapy. Pain remains controlled Reason For Visit: SEPSIS ENDOCARDITIS, POLYARTHRITIS, IV DRUG ABUSE Physical Exam Vital Signs: Temp Pulse Resp BP Pulse Ox 97.7 F 102 H 18 122/69 100 06/16/17 12:51 06/16/17 12:51 06/16/17 12:51 06/16/17 12:51 06/16/17 12:51 Pulse Oximeter Continuous Start: 05/05/17 11: 26 Freq: RTQ4 Status: Complete Document 05/11/17 08:00 JDR (Rec: 05/11/17 11:14 JDR [email or web address]) Pulse Oximetry Assessment Oxygen Saturation (92-100) 98 Oxygen Flow Rate (L/min) 2 Oxygen Delivery Method Nasal Cannula Equipment Usage Equipment in Use Continuous SpO2 Machine # 8 Intake & Output 06/15/17 06/16/17 06/17/17 06:59 06:59 06:59 Intake Total 1640 2226 Output Total 1830 1530 Balance -190 696 Musculoskeletal exam: PRESENT: other - Right knee: Surgical incisions healed no erythema or drainage. Minimal effusion. Knee range of motion 20-90. Pain with terminal flexion and extension. Results Laboratory Results: 06/16/17 05:00 06/16/17 05:00 06/16/17 06/16/17 05:00 05:00 WBC 18.0 H RBC 3.54 L Hgb 9.6 L Hct 28.6 L MCV 81 MCH 27.0 MCHC 33.4 RDW 16.8 H Plt Count 584 H Seg Neutrophils % 62.6 Lymphocytes % 31.1 Monocytes % 5.4 Eosinophils % 0.4 Basophils % 0.5 Absolute Neutrophils 11.3 H Absolute Lymphocytes 5.6 H Absolute Monocytes 1.0 Absolute Eosinophils 0.1 Absolute Basophils 0.1 Sodium 135.2 L Potassium 4.5 Chloride 98 Carbon Dioxide 27 Anion Gap 10 BUN 11 Creatinine 0.44 L Est GFR ( Amer) > 60 Est GFR (Non-Af Amer) > 60 Glucose 133 H Calcium 8.8 Impressions: Head CT 05/05/17 00:00 IMPRESSION: Limited negative study EVIDENCE OF ACUTE STROKE: NO. Lumbar Spine X-Ray 05/05/17 00:00 IMPRESSION: No acute fracture or malalignment. Multilevel disc space loss of height with anterior osteophyte formation Hip X-Ray 05/05/17 03:18 IMPRESSION: No acute findings. 2010 [email or web address]- All Rights Reserved Wrist X-Ray 05/05/17 03:18 IMPRESSION: No acute findings. Limited scaphoid views. 2010 [email or web address]- All Rights Reserved Chest X-Ray 05/05/17 03:23 IMPRESSION: No acute cardiopulmonary findings. 2010 [email or web address]- All Rights Reserved Guidance Fluoroscopy 05/12/17 00:00 IMPRESSION: SUCCESSFUL PLACEMENT OF A 5 FR DUAL LUMEN 35 CM PICC IN THE RIGHT BASILIC VEIN. Interventional Vascular Procedure 05/12/17 00:00 IMPRESSION: SUCCESSFUL PLACEMENT OF A 5 FR DUAL LUMEN 35 CM PICC IN THE RIGHT BASILIC VEIN. PICC Line Insertion 05/12/17 00:00 IMPRESSION: SUCCESSFUL PLACEMENT OF A 5 FR DUAL LUMEN 35 CM PICC IN THE RIGHT BASILIC VEIN. Knee X-Ray 05/26/17 00:00 IMPRESSION: Large suprapatellar knee joint effusion with air bubbles from septic joint. Soft tissue air bubbles in the medial right upper calf worrisome for infection with gas-forming organism. Lower Extremity MRI 05/26/17 00:00 IMPRESSION: No osteomyelitis. Septic joint containing fluid and gas and there is extensive fluid in the popliteal fossa communicating with the joint with both fluid and gas. Measures 13 cm. Mild edema in adjacent muscles. Tibia/Fibula X-Ray 05/26/17 00:00 IMPRESSION: LARGE JOINT EFFUSION. MULTIPLE BUBBLES OF GAS IN THE SOFT TISSUES OF THE PROXIMAL CALF. Assessment & Plan - Diagnosis (1) Myalgia Is this a current diagnosis for this admission?: No (2) Septic arthritis of knee, right Qualifiers: Septic arthritis organism: due to unspecified organism Qualified Code(s): M00.9 - Pyogenic arthritis, unspecified Is this a current diagnosis for this admission?: Yes Plan: Status post arthroscopic I&D, I&D right leg 05/27/17 #1 continue IV meropenem as per hospitalist recommendation #2 pain control. #3 physical therapy partial weightbearing right lower extremity #4 Sutures removed today. Currently no sign or symptoms of recurrent infection. We will continue to check periodically.
--- NOTE | 2017-06-16 16:50 | PDOC PROGRESS REPORT ---
Subjective Progress Note for:: 06/16/17 Subjective:: Subjective:: The patient is an unfortunate 46-year-old gentleman with a history of IV drug use. He is currently in the hospital receiving long-term IV antibiotics through June 28, 2017 for endocarditis. He also was found to have a septic joint is gone to the operating room. He had his drain removed today. He can be partially weightbearing with physical therapy. The patient is resting in his bed. He states that overall he is feeling well and his pain is adequately controlled. Otherwise he denies fever chills. No chest pain, shortness of breath or heart palpitations. No nausea, vomiting or diarrhea. No dysuria, frequency or hematuria. Reason For Visit: SEPSIS ENDOCARDITIS, POLYARTHRITIS, IV DRUG ABUSE Physical Exam Vital Signs: Temp Pulse Resp BP Pulse Ox 97.7 F 102 H 18 122/69 100 06/16/17 12:51 06/16/17 12:51 06/16/17 12:51 06/16/17 12:51 06/16/17 12:51 Pulse Oximeter Continuous Start: 05/05/17 11: 26 Freq: RTQ4 Status: Complete Document 05/11/17 08:00 JDR (Rec: 05/11/17 11:14 JDR [email or web address]) Pulse Oximetry Assessment Oxygen Saturation (92-100) 98 Oxygen Flow Rate (L/min) 2 Oxygen Delivery Method Nasal Cannula Equipment Usage Equipment in Use Continuous SpO2 Machine # 8 Intake & Output 06/15/17 06/16/17 06/17/17 06:59 06:59 06:59 Intake Total 1640 2226 Output Total 1830 1530 Balance -190 696 General appearance: PRESENT: no acute distress, thin Head exam: PRESENT: atraumatic, normocephalic Eye exam: PRESENT: conjunctiva pink, EOMI, PERRLA. ABSENT: scleral icterus Ear exam: PRESENT: normal external ear exam Mouth exam: PRESENT: moist, tongue midline Neck exam: ABSENT: carotid bruit, JVD, lymphadenopathy, thyromegaly Respiratory exam: PRESENT: clear to auscultation antonio. ABSENT: rales, rhonchi, wheezes Cardiovascular exam: PRESENT: RRR. ABSENT: diastolic murmur, rubs, systolic murmur Pulses: PRESENT: normal dorsalis pedis pul Vascular exam: PRESENT: normal capillary refill GI/Abdominal exam: PRESENT: normal bowel sounds, soft. ABSENT: distended, guarding, mass, organolmegaly, rebound, tenderness Rectal exam: PRESENT: deferred Extremities exam: PRESENT: full ROM. ABSENT: calf tenderness, clubbing, pedal edema Musculoskeletal exam: PRESENT: other - stitches removed from R Knee Neurological exam: PRESENT: alert, awake, oriented to person, oriented to place , oriented to time, oriented to situation, CN II-XII grossly intact. ABSENT: motor sensory deficit Psychiatric exam: PRESENT: appropriate affect, normal mood. ABSENT: homicidal ideation, suicidal ideation Skin exam: PRESENT: dry, intact, warm. ABSENT: cyanosis, rash Results Laboratory Results: 06/16/17 05:00 06/16/17 05:00 06/16/17 06/16/17 05:00 05:00 WBC 18.0 H RBC 3.54 L Hgb 9.6 L Hct 28.6 L MCV 81 MCH 27.0 MCHC 33.4 RDW 16.8 H Plt Count 584 H Seg Neutrophils % 62.6 Lymphocytes % 31.1 Monocytes % 5.4 Eosinophils % 0.4 Basophils % 0.5 Absolute Neutrophils 11.3 H Absolute Lymphocytes 5.6 H Absolute Monocytes 1.0 Absolute Eosinophils 0.1 Absolute Basophils 0.1 Sodium 135.2 L Potassium 4.5 Chloride 98 Carbon Dioxide 27 Anion Gap 10 BUN 11 Creatinine 0.44 L Est GFR ( Amer) > 60 Est GFR (Non-Af Amer) > 60 Glucose 133 H Calcium 8.8 Impressions: Head CT 05/05/17 00:00 IMPRESSION: Limited negative study EVIDENCE OF ACUTE STROKE: NO. Lumbar Spine X-Ray 05/05/17 00:00 IMPRESSION: No acute fracture or malalignment. Multilevel disc space loss of height with anterior osteophyte formation Hip X-Ray 05/05/17 03:18 IMPRESSION: No acute findings. 2010 [employer]- All Rights Reserved Wrist X-Ray 05/05/17 03:18 IMPRESSION: No acute findings. Limited scaphoid views. 2010 [employer]- All Rights Reserved Chest X-Ray 05/05/17 03:23 IMPRESSION: No acute cardiopulmonary findings. 2010 [employer]- All Rights Reserved Guidance Fluoroscopy 05/12/17 00:00 IMPRESSION: SUCCESSFUL PLACEMENT OF A 5 FR DUAL LUMEN 35 CM PICC IN THE RIGHT BASILIC VEIN. Interventional Vascular Procedure 05/12/17 00:00 IMPRESSION: SUCCESSFUL PLACEMENT OF A 5 FR DUAL LUMEN 35 CM PICC IN THE RIGHT BASILIC VEIN. PICC Line Insertion 05/12/17 00:00 IMPRESSION: SUCCESSFUL PLACEMENT OF A 5 FR DUAL LUMEN 35 CM PICC IN THE RIGHT BASILIC VEIN. Knee X-Ray 05/26/17 00:00 IMPRESSION: Large suprapatellar knee joint effusion with air bubbles from septic joint. Soft tissue air bubbles in the medial right upper calf worrisome for infection with gas-forming organism. Lower Extremity MRI 05/26/17 00:00 IMPRESSION: No osteomyelitis. Septic joint containing fluid and gas and there is extensive fluid in the popliteal fossa communicating with the joint with both fluid and gas. Measures 13 cm. Mild edema in adjacent muscles. Tibia/Fibula X-Ray 05/26/17 00:00 IMPRESSION: LARGE JOINT EFFUSION. MULTIPLE BUBBLES OF GAS IN THE SOFT TISSUES OF THE PROXIMAL CALF. Assessment & Plan - Time Time Spent with patient: 15-24 minutes Anticipated discharge: Home - Inpatient Certification Medical Necessity: Need for IV Antibiotics, Risk of Complication if Not Cared For in Hospital - Plan Summary Plan Summary: Assessment and plan Current diagnosis for this admission #1 Tricuspid valve endocarditis currently on parenteral antibiotics through June 28. Due to his history of IV drug abuse he needs to remain in hospital for the duration of treatment. 2. Bacteremia with methicillin sensitive Staphylococcus aureus. His Blood cultures have been negative since 05/25 3. Septic arthritis related to his bacteremia. Continue pain management 4. Iron deficiency anemia likely secondary to his nutritional status and acute illness H and H stable 5. Hyponatremia resolved 6. Type 2 diabetes mellitus controlled 7 patient is full code 8 Leukocytosis, persistent however no indication of worsening infection
[2017-06-16] MEDS: ZOLPIDEM TARTRATE 5 MG TABLET PO PRN (21:34)
[2017-06-17] MEDS: IBUPROFEN 600 MG TABLET PO SCH ×4 (00:01→19:52)
[2017-06-17] MEDS: OXYCODONE-ACETAMINOPHEN 5-325 MG TABLET PO PRN ×4 (03:04→21:11)
[2017-06-17] MEDS: CEFAZOLIN 2 GM/D5W RTU 2 GM/50 ML RTUPB IV SCH ×3 (06:45→21:11)
[2017-06-17] MEDS: METFORMIN HCL 500 MG TABLET PO SCH ×2 (09:00→15:56)
[2017-06-17] MEDS: NORMAL SALINE 10 ML SDV (SCHEDULED) IV SCH ×2 (09:01→21:12)
[2017-06-17] MEDS: POLYETHYLENE GLYCOL 3350 POWDER 17 GM/1 PACKET PO SCH (09:01)
[2017-06-17] MEDS: OXYCODONE HCL IR 5 MG TABLET PO PRN (15:59)
--- NOTE | 2017-06-17 17:04 | PDOC PROGRESS REPORT ---
Subjective Progress Note for:: 06/17/17 Subjective:: Subjective:: The patient is an unfortunate 46-year-old gentleman with a history of IV drug use. He is currently in the hospital receiving long-term IV antibiotics through June 28, 2017 for endocarditis. He also was found to have a septic joint is gone to the operating room. He had his drain removed today. He can be partially weightbearing with physical therapy. The patient is seen ambulating around the hallway with a walker He says his R knee pain is still poorly controlled Otherwise he denies fever chills. No chest pain, shortness of breath or heart palpitations. No nausea, vomiting or diarrhea. No dysuria, frequency or hematuria. Reason For Visit: SEPSIS ENDOCARDITIS, POLYARTHRITIS, IV DRUG ABUSE Physical Exam Vital Signs: Temp Pulse Resp BP Pulse Ox 98.1 F 96 18 119/72 100 06/17/17 11:21 06/17/17 11:21 06/17/17 11:21 06/17/17 11:21 06/17/17 11:21 Pulse Oximeter Continuous Start: 05/05/17 11: 26 Freq: RTQ4 Status: Complete Document 05/11/17 08:00 JDR (Rec: 05/11/17 11:14 JDR [email or web address]) Pulse Oximetry Assessment Oxygen Saturation (92-100) 98 Oxygen Flow Rate (L/min) 2 Oxygen Delivery Method Nasal Cannula Equipment Usage Equipment in Use Continuous SpO2 Machine # 8 Intake & Output 06/16/17 06/17/17 06/18/17 06:59 06:59 06:59 Intake Total 2226 947 Output Total 1530 1505 Balance 696 -558 Weight 64 kg General appearance: PRESENT: no acute distress, disheveled, thin - Chronically ill looking, other - Chronically ill looking Head exam: PRESENT: atraumatic Eye exam: PRESENT: conjunctiva pink, EOMI, PERRLA. ABSENT: scleral icterus Respiratory exam: PRESENT: clear to auscultation antonio. ABSENT: rales, rhonchi, wheezes Cardiovascular exam: PRESENT: RRR. ABSENT: diastolic murmur, rubs, systolic murmur Pulses: PRESENT: normal dorsalis pedis pul Musculoskeletal exam: PRESENT: other - Right knee slightly swollen but no discharge is seen. There is diminished range of movement Neurological exam: PRESENT: alert, altered, awake, oriented to person, oriented to place, oriented to time, oriented to situation, reflexes normal, abnormal gait, ataxia, CN II-XII grossly intact, motor sensory deficit, normal gait, aphasic, other Results Laboratory Results: 06/16/17 05:00 06/16/17 05:00 Impressions: Head CT 05/05/17 00:00 IMPRESSION: Limited negative study EVIDENCE OF ACUTE STROKE: NO. Lumbar Spine X-Ray 05/05/17 00:00 IMPRESSION: No acute fracture or malalignment. Multilevel disc space loss of height with anterior osteophyte formation Hip X-Ray 05/05/17 03:18 IMPRESSION: No acute findings. 2010 [employer]- All Rights Reserved Wrist X-Ray 05/05/17 03:18 IMPRESSION: No acute findings. Limited scaphoid views. 2010 [employer]- All Rights Reserved Chest X-Ray 05/05/17 03:23 IMPRESSION: No acute cardiopulmonary findings. 2010 [employer]- All Rights Reserved Guidance Fluoroscopy 05/12/17 00:00 IMPRESSION: SUCCESSFUL PLACEMENT OF A 5 FR DUAL LUMEN 35 CM PICC IN THE RIGHT BASILIC VEIN. Interventional Vascular Procedure 05/12/17 00:00 IMPRESSION: SUCCESSFUL PLACEMENT OF A 5 FR DUAL LUMEN 35 CM PICC IN THE RIGHT BASILIC VEIN. PICC Line Insertion 05/12/17 00:00 IMPRESSION: SUCCESSFUL PLACEMENT OF A 5 FR DUAL LUMEN 35 CM PICC IN THE RIGHT BASILIC VEIN. Knee X-Ray 05/26/17 00:00 IMPRESSION: Large suprapatellar knee joint effusion with air bubbles from septic joint. Soft tissue air bubbles in the medial right upper calf worrisome for infection with gas-forming organism. Lower Extremity MRI 05/26/17 00:00 IMPRESSION: No osteomyelitis. Septic joint containing fluid and gas and there is extensive fluid in the popliteal fossa communicating with the joint with both fluid and gas. Measures 13 cm. Mild edema in adjacent muscles. Tibia/Fibula X-Ray 05/26/17 00:00 IMPRESSION: LARGE JOINT EFFUSION. MULTIPLE BUBBLES OF GAS IN THE SOFT TISSUES OF THE PROXIMAL CALF. 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 Due to his history of IV drug abuse he will have to remain in hospital for the duration of treatment. 2. Bacteremia with methicillin sensitive Staphylococcus aureus. His Blood cultures have been negative since 05/25. He still has a significant leukocytosis but no evidence of acute infection. 3. Septic arthritis related to his bacteremia. I have increased his oxycodone for better pain control 4. Iron deficiency anemia likely secondary to his nutritional status and acute illness H and H remain stable 5. Hyponatremia resolved 6. Type 2 diabetes mellitus controlled 7 patient is full code 8 Leukocytosis, persistent however no indication of worsening infection. He also has a thrombocytosis likely reactive.
[2017-06-18] MEDS: IBUPROFEN 600 MG TABLET PO SCH ×4 (00:47→18:26)
[2017-06-18] MEDS: ZOLPIDEM TARTRATE 5 MG TABLET PO PRN (00:50)
[2017-06-18] MEDS: CEFAZOLIN 2 GM/D5W RTU 2 GM/50 ML RTUPB IV SCH ×3 (06:29→21:06)
[2017-06-18 07:05] LABS: ABSOLUTE BASOPHILS # (AUTO) 0.1 10^3/uL (0.0-0.2); ABSOLUTE EOSINOPHILS # (AUTO) 0.1 10^3/uL (0.0-0.6); ABSOLUTE LYMPHOCYTES (AUTO) 5.2 10^3/uL (0.5-4.7); ABSOLUTE MONOCYTES (AUTO) 0.9 10^3/uL (0.1-1.4); ABSOLUTE NEUT (AUTO) 9.6 10^3/uL (1.7-8.2); BASOPHILS % (AUTO) 0.3 % (0-2); EOSINOPHILS % (AUTO) 0.6 % (0-6); HEMATOCRIT 28.9 % (37.9-51.0); HEMOGLOBIN 9.5 g/dL (13.5-17.0); LYMPHOCYTES % (AUTO) 32.7 % (13-45); MEAN CORPUSCULAR VOLUME 82 fl (80-97); MONOCYTES % (AUTO) 5.8 % (3-13); PLATELET COUNT 542 10^3/uL (150-450); RED BLOOD COUNT 3.53 10^6/uL (4.35-5.55); RED CELL DISTRIBUTION WIDTH 16.7 % (11.5-14.0); SEGMENTED NEUTROPHILS % (AUTO) 60.6 % (42-78); TOTAL CELLS COUNTED % (AUTO) 100 %; WHITE BLOOD COUNT 15.9 10^3/uL (4.0-10.5)
--- NOTE | 2017-06-18 07:13 | PDOC PROGRESS REPORT ---
Subjective Progress Note for:: 06/18/17 Reason For Visit: SEPSIS ENDOCARDITIS, POLYARTHRITIS, IV DRUG ABUSE 46-year-old white male status post arthroscopic washout of right knee 2 for pyarthrosis Physical Exam Vital Signs: Temp Pulse Resp BP Pulse Ox 36.5 C 93 15 136/87 H 99 06/17/17 23:24 06/17/17 23:24 06/17/17 23:24 06/17/17 23:24 06/17/17 23:24 Pulse Oximeter Continuous Start: 05/05/17 11: 26 Freq: RTQ4 Status: Complete Document 05/11/17 08:00 JDR (Rec: 05/11/17 11:14 JDR [email or web address]) Pulse Oximetry Assessment Oxygen Saturation (92-100) 98 Oxygen Flow Rate (L/min) 2 Oxygen Delivery Method Nasal Cannula Equipment Usage Equipment in Use Continuous SpO2 Machine # 8 Intake & Output 06/17/17 06/18/17 06/19/17 06:59 06:59 06:59 Intake Total 947 1702 Output Total 1505 625 Balance -558 1077 Weight 64 kg 64.7 kg General appearance: PRESENT: no acute distress Extremities exam: PRESENT: other - Right knee continues to have an effusion. Portals are healing uneventfully. Mild to moderate pain associate with passive range of motion. Neurological exam: PRESENT: awake Skin exam: PRESENT: dry, intact, warm. ABSENT: cyanosis, rash Results Laboratory Results: 06/18/17 06:05 06/16/17 05:00 06/18/17 06:05 WBC 15.9 H RBC 3.53 L Hgb 9.5 L Hct 28.9 L MCV 82 MCH 27.0 MCHC 33.0 RDW 16.7 H Plt Count 542 H Seg Neutrophils % 60.6 Lymphocytes % 32.7 Monocytes % 5.8 Eosinophils % 0.6 Basophils % 0.3 Absolute Neutrophils 9.6 H Absolute Lymphocytes 5.2 H Absolute Monocytes 0.9 Absolute Eosinophils 0.1 Absolute Basophils 0.1 Impressions: Head CT 05/05/17 00:00 IMPRESSION: Limited negative study EVIDENCE OF ACUTE STROKE: NO. Lumbar Spine X-Ray 05/05/17 00:00 IMPRESSION: No acute fracture or malalignment. Multilevel disc space loss of height with anterior osteophyte formation Hip X-Ray 05/05/17 03:18 IMPRESSION: No acute findings. 2010 [employer]- All Rights Reserved Wrist X-Ray 05/05/17 03:18 IMPRESSION: No acute findings. Limited scaphoid views. 2010 [employer]- All Rights Reserved Chest X-Ray 05/05/17 03:23 IMPRESSION: No acute cardiopulmonary findings. 2010 [employer]- All Rights Reserved Guidance Fluoroscopy 05/12/17 00:00 IMPRESSION: SUCCESSFUL PLACEMENT OF A 5 FR DUAL LUMEN 35 CM PICC IN THE RIGHT BASILIC VEIN. Interventional Vascular Procedure 05/12/17 00:00 IMPRESSION: SUCCESSFUL PLACEMENT OF A 5 FR DUAL LUMEN 35 CM PICC IN THE RIGHT BASILIC VEIN. PICC Line Insertion 05/12/17 00:00 IMPRESSION: SUCCESSFUL PLACEMENT OF A 5 FR DUAL LUMEN 35 CM PICC IN THE RIGHT BASILIC VEIN. Knee X-Ray 05/26/17 00:00 IMPRESSION: Large suprapatellar knee joint effusion with air bubbles from septic joint. Soft tissue air bubbles in the medial right upper calf worrisome for infection with gas-forming organism. Lower Extremity MRI 05/26/17 00:00 IMPRESSION: No osteomyelitis. Septic joint containing fluid and gas and there is extensive fluid in the popliteal fossa communicating with the joint with both fluid and gas. Measures 13 cm. Mild edema in adjacent muscles. Tibia/Fibula X-Ray 05/26/17 00:00 IMPRESSION: LARGE JOINT EFFUSION. MULTIPLE BUBBLES OF GAS IN THE SOFT TISSUES OF THE PROXIMAL CALF. Status: Imported from PACS Assessment & Plan - Diagnosis (1) Septic arthritis of knee, right Qualifiers: Septic arthritis organism: due to unspecified organism Qualified Code(s): M00.9 - Pyogenic arthritis, unspecified Is this a current diagnosis for this admission?: Yes Plan: Portal seem to be healing uneventfully. Functional goals are unclear - Time Time Spent with patient: 15-24 minutes Anticipated discharge: Other Within: Other
[2017-06-18] MEDS: METFORMIN HCL 500 MG TABLET PO SCH ×2 (07:57→17:32)
[2017-06-18] MEDS: OXYCODONE-ACETAMINOPHEN 5-325 MG TABLET PO PRN ×2 (08:04→18:27)
[2017-06-18] MEDS: NORMAL SALINE 10 ML SDV (AFTER EACH USE) IV PRN (09:32)
[2017-06-18] MEDS: NORMAL SALINE 10 ML SDV (SCHEDULED) IV SCH ×2 (09:32→21:07)
[2017-06-18] MEDS: POLYETHYLENE GLYCOL 3350 POWDER 17 GM/1 PACKET PO SCH (09:32)
[2017-06-18] MEDS: OXYCODONE HCL IR 5 MG TABLET PO PRN (11:52)
--- NOTE | 2017-06-18 14:53 | PDOC PROGRESS REPORT ---
Subjective Progress Note for:: 06/18/17 Subjective:: Subjective:: The patient is an unfortunate 46-year-old gentleman with a history of IV drug use. He is currently in the hospital receiving long-term IV antibiotics through June 28, 2017 for endocarditis. He also was found to have a septic joint is gone to the operating room. He had his drain removed today. He can be partially weightbearing with physical therapy. He still complained of knee pain Reason For Visit: SEPSIS ENDOCARDITIS, POLYARTHRITIS, IV DRUG ABUSE Physical Exam Vital Signs: Temp Pulse Resp BP Pulse Ox 98.1 F 98 16 105/66 100 06/18/17 11:05 06/18/17 11:05 06/18/17 11:05 06/18/17 11:05 06/18/17 11:05 Pulse Oximeter Continuous Start: 05/05/17 11: 26 Freq: RTQ4 Status: Complete Document 05/11/17 08:00 JDR (Rec: 05/11/17 11:14 JDR [email or web address]) Pulse Oximetry Assessment Oxygen Saturation (92-100) 98 Oxygen Flow Rate (L/min) 2 Oxygen Delivery Method Nasal Cannula Equipment Usage Equipment in Use Continuous SpO2 Machine # 8 Intake & Output 06/17/17 06/18/17 06/19/17 06:59 06:59 06:59 Intake Total 947 1702 Output Total 1505 625 Balance -558 1077 Weight 64 kg 64.7 kg General appearance: PRESENT: thin Head exam: PRESENT: atraumatic Eye exam: PRESENT: conjunctiva pink, EOMI, PERRLA. ABSENT: scleral icterus Mouth exam: PRESENT: moist, tongue midline Cardiovascular exam: PRESENT: RRR. ABSENT: diastolic murmur, rubs, systolic murmur Pulses: PRESENT: normal dorsalis pedis pul GI/Abdominal exam: PRESENT: normal bowel sounds, soft. ABSENT: distended, guarding, mass, organolmegaly, rebound, tenderness Musculoskeletal exam: PRESENT: other - Right knee with no drainage Results Laboratory Results: 06/18/17 06:05 06/16/17 05:00 06/18/17 06:05 WBC 15.9 H RBC 3.53 L Hgb 9.5 L Hct 28.9 L MCV 82 MCH 27.0 MCHC 33.0 RDW 16.7 H Plt Count 542 H Seg Neutrophils % 60.6 Lymphocytes % 32.7 Monocytes % 5.8 Eosinophils % 0.6 Basophils % 0.3 Absolute Neutrophils 9.6 H Absolute Lymphocytes 5.2 H Absolute Monocytes 0.9 Absolute Eosinophils 0.1 Absolute Basophils 0.1 Impressions: Head CT 05/05/17 00:00 IMPRESSION: Limited negative study EVIDENCE OF ACUTE STROKE: NO. Lumbar Spine X-Ray 05/05/17 00:00 IMPRESSION: No acute fracture or malalignment. Multilevel disc space loss of height with anterior osteophyte formation Hip X-Ray 05/05/17 03:18 IMPRESSION: No acute findings. 2010 [employer]- All Rights Reserved Wrist X-Ray 05/05/17 03:18 IMPRESSION: No acute findings. Limited scaphoid views. 2010 [employer]- All Rights Reserved Chest X-Ray 05/05/17 03:23 IMPRESSION: No acute cardiopulmonary findings. 2010 [employer]- All Rights Reserved Guidance Fluoroscopy 05/12/17 00:00 IMPRESSION: SUCCESSFUL PLACEMENT OF A 5 FR DUAL LUMEN 35 CM PICC IN THE RIGHT BASILIC VEIN. Interventional Vascular Procedure 05/12/17 00:00 IMPRESSION: SUCCESSFUL PLACEMENT OF A 5 FR DUAL LUMEN 35 CM PICC IN THE RIGHT BASILIC VEIN. PICC Line Insertion 05/12/17 00:00 IMPRESSION: SUCCESSFUL PLACEMENT OF A 5 FR DUAL LUMEN 35 CM PICC IN THE RIGHT BASILIC VEIN. Knee X-Ray 05/26/17 00:00 IMPRESSION: Large suprapatellar knee joint effusion with air bubbles from septic joint. Soft tissue air bubbles in the medial right upper calf worrisome for infection with gas-forming organism. Lower Extremity MRI 05/26/17 00:00 IMPRESSION: No osteomyelitis. Septic joint containing fluid and gas and there is extensive fluid in the popliteal fossa communicating with the joint with both fluid and gas. Measures 13 cm. Mild edema in adjacent muscles. Tibia/Fibula X-Ray 05/26/17 00:00 IMPRESSION: LARGE JOINT EFFUSION. MULTIPLE BUBBLES OF GAS IN THE SOFT TISSUES OF THE PROXIMAL CALF. 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 2. Bacteremia with methicillin sensitive Staphylococcus aureus. His Blood cultures have been negative since 05/25. Leukocytosis showing a downward trend 3. Septic arthritis related to his bacteremia. Continue oxycodone for pain control 4. Iron deficiency anemia likely secondary to his nutritional status and acute illness H and H remain stable 5. Hyponatremia resolved 6. Type 2 diabetes mellitus controlled 7 patient is full code 8 reactive thrombocytosis secondary to acute infection
[2017-06-19] MEDS: IBUPROFEN 600 MG TABLET PO SCH ×4 (00:02→20:20)
[2017-06-19] MEDS: OXYCODONE-ACETAMINOPHEN 5-325 MG TABLET PO PRN ×3 (00:02→20:20)
[2017-06-19] MEDS: CEFAZOLIN 2 GM/D5W RTU 2 GM/50 ML RTUPB IV SCH ×3 (05:22→21:30)
[2017-06-19] MEDS: METFORMIN HCL 500 MG TABLET PO SCH ×2 (08:49→17:40)
[2017-06-19] MEDS: NORMAL SALINE 10 ML SDV (SCHEDULED) IV SCH ×2 (10:09→21:30)
[2017-06-19] MEDS: POLYETHYLENE GLYCOL 3350 POWDER 17 GM/1 PACKET PO SCH (10:10)
[2017-06-19] MEDS: OXYCODONE HCL IR 5 MG TABLET PO PRN (14:05)
--- NOTE | 2017-06-19 14:52 | PDOC PROGRESS REPORT ---
Subjective Progress Note for:: 06/19/17 Subjective:: Subjective:: The patient is an unfortunate 46-year-old gentleman with a history of IV drug use. He is currently in the hospital receiving long-term IV antibiotics through June 28, 2017 for endocarditis. He also was found to have a septic joint is gone to the operating room. He had his drain removed today. He can be partially weightbearing with physical therapy. Feels better and ambulating more today Reason For Visit: SEPSIS ENDOCARDITIS, POLYARTHRITIS, IV DRUG ABUSE Physical Exam Vital Signs: Temp Pulse Resp BP Pulse Ox 97.3 F 93 18 124/75 100 06/19/17 11:14 06/19/17 11:14 06/19/17 11:14 06/19/17 11:14 06/19/17 11:14 Pulse Oximeter Continuous Start: 05/05/17 11: 26 Freq: RTQ4 Status: Complete Document 05/11/17 08:00 JDR (Rec: 05/11/17 11:14 JDR [email or web address]) Pulse Oximetry Assessment Oxygen Saturation (92-100) 98 Oxygen Flow Rate (L/min) 2 Oxygen Delivery Method Nasal Cannula Equipment Usage Equipment in Use Continuous SpO2 Machine # 8 Intake & Output 06/18/17 06/19/17 06/20/17 06:59 06:59 06:59 Intake Total 1702 1260 Output Total 625 400 Balance 1077 860 Weight 64.7 kg 65.7 kg General appearance: PRESENT: no acute distress, thin Head exam: PRESENT: atraumatic Eye exam: PRESENT: conjunctiva pink, EOMI, PERRLA. ABSENT: scleral icterus Ear exam: PRESENT: normal external ear exam Neck exam: PRESENT: carotid bruit Respiratory exam: PRESENT: clear to auscultation antonio. ABSENT: rales, rhonchi, wheezes Cardiovascular exam: PRESENT: RRR. ABSENT: diastolic murmur, rubs, systolic murmur GI/Abdominal exam: PRESENT: normal bowel sounds, soft. ABSENT: distended, guarding, mass, organolmegaly, rebound, tenderness Musculoskeletal exam: PRESENT: other - R knee less swollen and tender, no discharges seen Neurological exam: PRESENT: alert, awake, oriented to person, oriented to place , oriented to time, oriented to situation, CN II-XII grossly intact. ABSENT: motor sensory deficit Results Laboratory Results: 06/18/17 06:05 06/16/17 05:00 Impressions: Head CT 05/05/17 00:00 IMPRESSION: Limited negative study EVIDENCE OF ACUTE STROKE: NO. Lumbar Spine X-Ray 05/05/17 00:00 IMPRESSION: No acute fracture or malalignment. Multilevel disc space loss of height with anterior osteophyte formation Hip X-Ray 05/05/17 03:18 IMPRESSION: No acute findings. 2010 [employer]- All Rights Reserved Wrist X-Ray 05/05/17 03:18 IMPRESSION: No acute findings. Limited scaphoid views. 2010 [employer]- All Rights Reserved Chest X-Ray 05/05/17 03:23 IMPRESSION: No acute cardiopulmonary findings. 2010 [employer]- All Rights Reserved Guidance Fluoroscopy 05/12/17 00:00 IMPRESSION: SUCCESSFUL PLACEMENT OF A 5 FR DUAL LUMEN 35 CM PICC IN THE RIGHT BASILIC VEIN. Interventional Vascular Procedure 05/12/17 00:00 IMPRESSION: SUCCESSFUL PLACEMENT OF A 5 FR DUAL LUMEN 35 CM PICC IN THE RIGHT BASILIC VEIN. PICC Line Insertion 05/12/17 00:00 IMPRESSION: SUCCESSFUL PLACEMENT OF A 5 FR DUAL LUMEN 35 CM PICC IN THE RIGHT BASILIC VEIN. Knee X-Ray 05/26/17 00:00 IMPRESSION: Large suprapatellar knee joint effusion with air bubbles from septic joint. Soft tissue air bubbles in the medial right upper calf worrisome for infection with gas-forming organism. Lower Extremity MRI 05/26/17 00:00 IMPRESSION: No osteomyelitis. Septic joint containing fluid and gas and there is extensive fluid in the popliteal fossa communicating with the joint with both fluid and gas. Measures 13 cm. Mild edema in adjacent muscles. Tibia/Fibula X-Ray 05/26/17 00:00 IMPRESSION: LARGE JOINT EFFUSION. MULTIPLE BUBBLES OF GAS IN THE SOFT TISSUES OF THE PROXIMAL CALF. 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 2. Bacteremia with methicillin sensitive Staphylococcus aureus. His Blood cultures have been negative since 05/25. Leukocytosis continues to show a downward trend 3. Septic arthritis related to his bacteremia. Continue oxycodone for pain control. Appears to be clinically improved 4. Iron deficiency anemia likely secondary to his nutritional status and acute illness H and H remain stable 5. Hyponatremia resolved 6. Type 2 diabetes mellitus controlled 7 patient is full code 8 reactive thrombocytosis secondary to acute infection. Will monitor 9.Mild protein Calorie Malnutrition
[2017-06-20] MEDS: IBUPROFEN 600 MG TABLET PO SCH ×4 (00:14→19:54)
[2017-06-20] MEDS: CEFAZOLIN 2 GM/D5W RTU 2 GM/50 ML RTUPB IV SCH ×3 (06:07→21:17)
[2017-06-20] MEDS: OXYCODONE-ACETAMINOPHEN 5-325 MG TABLET PO PRN ×3 (09:14→19:53)
[2017-06-20] MEDS: POLYETHYLENE GLYCOL 3350 POWDER 17 GM/1 PACKET PO SCH (09:14)
[2017-06-20] MEDS: METFORMIN HCL 500 MG TABLET PO SCH ×2 (09:15→15:39)
[2017-06-20] MEDS: NORMAL SALINE 10 ML SDV (SCHEDULED) IV SCH ×2 (09:15→21:23)
--- NOTE | 2017-06-20 15:08 | PDOC PROGRESS REPORT ---
Subjective Progress Note for:: 06/20/17 Subjective:: Subjective:: The patient is an unfortunate 46-year-old gentleman with a history of IV drug use. He is currently in the hospital receiving long-term IV antibiotics through June 28, 2017 for endocarditis. He also was found to have a septic joint is gone to the operating room. He had his drain removed today. He can be partially weightbearing with physical therapy. Feels better and ambulating around, says pain is controlled Reason For Visit: SEPSIS ENDOCARDITIS, POLYARTHRITIS, IV DRUG ABUSE Physical Exam Vital Signs: Temp Pulse Resp BP Pulse Ox 98.2 F 90 22 H 129/84 H 100 06/20/17 07:19 06/20/17 07:19 06/20/17 07:19 06/20/17 07:19 06/20/17 07:19 Pulse Oximeter Continuous Start: 05/05/17 11: 26 Freq: RTQ4 Status: Complete Document 05/11/17 08:00 JDR (Rec: 05/11/17 11:14 JDR [email or web address]) Pulse Oximetry Assessment Oxygen Saturation (92-100) 98 Oxygen Flow Rate (L/min) 2 Oxygen Delivery Method Nasal Cannula Equipment Usage Equipment in Use Continuous SpO2 Machine # 8 Intake & Output 06/19/17 06/20/17 06/21/17 06:59 06:59 06:59 Intake Total 1260 1724 Output Total 400 675 Balance 860 1049 Weight 65.7 kg 67 kg General appearance: PRESENT: no acute distress, cooperative, thin Head exam: PRESENT: atraumatic Eye exam: PRESENT: conjunctiva pink, EOMI, PERRLA. ABSENT: scleral icterus Ear exam: PRESENT: normal external ear exam Neck exam: ABSENT: carotid bruit, JVD, lymphadenopathy, thyromegaly Cardiovascular exam: PRESENT: RRR. ABSENT: diastolic murmur, rubs, systolic murmur Pulses: PRESENT: normal dorsalis pedis pul GI/Abdominal exam: PRESENT: normal bowel sounds, soft. ABSENT: distended, guarding, mass, organolmegaly, rebound, tenderness Rectal exam: PRESENT: deferred Extremities exam: PRESENT: joint swelling - R knee, improved Neurological exam: PRESENT: alert, awake, oriented to person, oriented to place , oriented to time, oriented to situation Results Laboratory Results: 06/18/17 06:05 02/02/18 05:00 Impressions: Head CT 05/05/17 00:00 IMPRESSION: Limited negative study EVIDENCE OF ACUTE STROKE: NO. Lumbar Spine X-Ray 05/05/17 00:00 IMPRESSION: No acute fracture or malalignment. Multilevel disc space loss of height with anterior osteophyte formation Hip X-Ray 05/05/17 03:18 IMPRESSION: No acute findings. 2010 [employer]- All Rights Reserved Wrist X-Ray 05/05/17 03:18 IMPRESSION: No acute findings. Limited scaphoid views. 2010 [employer]- All Rights Reserved Chest X-Ray 05/05/17 03:23 IMPRESSION: No acute cardiopulmonary findings. 2010 [employer]- All Rights Reserved Guidance Fluoroscopy 05/12/17 00:00 IMPRESSION: SUCCESSFUL PLACEMENT OF A 5 FR DUAL LUMEN 35 CM PICC IN THE RIGHT BASILIC VEIN. Interventional Vascular Procedure 05/12/17 00:00 IMPRESSION: SUCCESSFUL PLACEMENT OF A 5 FR DUAL LUMEN 35 CM PICC IN THE RIGHT BASILIC VEIN. PICC Line Insertion 05/12/17 00:00 IMPRESSION: SUCCESSFUL PLACEMENT OF A 5 FR DUAL LUMEN 35 CM PICC IN THE RIGHT BASILIC VEIN. Knee X-Ray 05/26/17 00:00 IMPRESSION: Large suprapatellar knee joint effusion with air bubbles from septic joint. Soft tissue air bubbles in the medial right upper calf worrisome for infection with gas-forming organism. Lower Extremity MRI 05/26/17 00:00 IMPRESSION: No osteomyelitis. Septic joint containing fluid and gas and there is extensive fluid in the popliteal fossa communicating with the joint with both fluid and gas. Measures 13 cm. Mild edema in adjacent muscles. Tibia/Fibula X-Ray 05/26/17 00:00 IMPRESSION: LARGE JOINT EFFUSION. MULTIPLE BUBBLES OF GAS IN THE SOFT TISSUES OF THE PROXIMAL CALF. 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 2. Bacteremia with methicillin sensitive Staphylococcus aureus. His Blood cultures have been negative since 05/25. Leukocytosis continues to show a downward trend Will recheck in am 3. Septic arthritis related to his bacteremia. Continue oxycodone for pain control. Appears to be clinically improved and stabilized 4. Iron deficiency anemia likely secondary to his nutritional status and acute illness H and H remain stable 5. Hyponatremia resolved 6. Type 2 diabetes mellitus controlled 7 patient is full code 8 reactive thrombocytosis secondary to acute infection. Will monitor 9.Mild protein Calorie Malnutrition- dietary supplements
--- NOTE | 2017-06-20 16:20 | PDOC PROGRESS REPORT ---
Subjective Subjective:: Patient lying in bed comfortably. Denies fever chills or sweats. He states his range of motion is improving. Still has some residual pain and swelling. Reason For Visit: SEPSIS ENDOCARDITIS, POLYARTHRITIS, IV DRUG ABUSE Physical Exam Vital Signs: Temp Pulse Resp BP Pulse Ox 99.2 F 102 H 18 120/64 100 06/20/17 15:50 06/20/17 15:50 06/20/17 15:50 06/20/17 15:50 06/20/17 15:50 Pulse Oximeter Continuous Start: 05/05/17 11: 26 Freq: RTQ4 Status: Complete Document 05/11/17 08:00 JDR (Rec: 05/11/17 11:14 JDR [email or web address]) Pulse Oximetry Assessment Oxygen Saturation (92-100) 98 Oxygen Flow Rate (L/min) 2 Oxygen Delivery Method Nasal Cannula Equipment Usage Equipment in Use Continuous SpO2 Machine # 8 Intake & Output 06/19/17 06/20/17 06/21/17 06:59 06:59 06:59 Intake Total 1260 1724 Output Total 400 675 Balance 860 1049 Weight 65.7 kg 67 kg Musculoskeletal exam: PRESENT: other - Right knee: Surgical incisions healed no erythema or drainage. Mild tenderness on the joint line. Moderate suprapatellar effusion. No pain with range of motion from 10-80. Pain with terminal extension and flexion. No calf tenderness. No streaking erythema or calf swelling. Results Laboratory Results: 06/18/17 06:05 06/16/17 05:00 Impressions: Head CT 05/05/17 00:00 IMPRESSION: Limited negative study EVIDENCE OF ACUTE STROKE: NO. Lumbar Spine X-Ray 05/05/17 00:00 IMPRESSION: No acute fracture or malalignment. Multilevel disc space loss of height with anterior osteophyte formation Hip X-Ray 05/05/17 03:18 IMPRESSION: No acute findings. 2010 [employer]- All Rights Reserved Wrist X-Ray 05/05/17 03:18 IMPRESSION: No acute findings. Limited scaphoid views. 2010 [employer]- All Rights Reserved Chest X-Ray 05/05/17 03:23 IMPRESSION: No acute cardiopulmonary findings. 2010 [employer]- All Rights Reserved Guidance Fluoroscopy 05/12/17 00:00 IMPRESSION: SUCCESSFUL PLACEMENT OF A 5 FR DUAL LUMEN 35 CM PICC IN THE RIGHT BASILIC VEIN. Interventional Vascular Procedure 05/12/17 00:00 IMPRESSION: SUCCESSFUL PLACEMENT OF A 5 FR DUAL LUMEN 35 CM PICC IN THE RIGHT BASILIC VEIN. PICC Line Insertion 05/12/17 00:00 IMPRESSION: SUCCESSFUL PLACEMENT OF A 5 FR DUAL LUMEN 35 CM PICC IN THE RIGHT BASILIC VEIN. Knee X-Ray 05/26/17 00:00 IMPRESSION: Large suprapatellar knee joint effusion with air bubbles from septic joint. Soft tissue air bubbles in the medial right upper calf worrisome for infection with gas-forming organism. Lower Extremity MRI 05/26/17 00:00 IMPRESSION: No osteomyelitis. Septic joint containing fluid and gas and there is extensive fluid in the popliteal fossa communicating with the joint with both fluid and gas. Measures 13 cm. Mild edema in adjacent muscles. Tibia/Fibula X-Ray 05/26/17 00:00 IMPRESSION: LARGE JOINT EFFUSION. MULTIPLE BUBBLES OF GAS IN THE SOFT TISSUES OF THE PROXIMAL CALF. Assessment & Plan - Diagnosis (1) Myalgia Is this a current diagnosis for this admission?: No (2) Septic arthritis of knee, right Qualifiers: Septic arthritis organism: due to unspecified organism Qualified Code(s): M00.9 - Pyogenic arthritis, unspecified Is this a current diagnosis for this admission?: Yes Plan: Status post arthroscopic I&D, I&D right leg 05/27/17 #1 continue IV meropenem as per hospitalist recommendation #2 pain control. #3 physical therapy partial weightbearing right lower extremity range of motion exercises. #4 Currently no sign or symptoms of recurrent infection. We will continue to check periodically.
[2017-06-21] MEDS: IBUPROFEN 600 MG TABLET PO SCH ×4 (00:18→19:31)
[2017-06-21] MEDS: OXYCODONE-ACETAMINOPHEN 5-325 MG TABLET PO PRN ×4 (00:19→13:42)
[2017-06-21 05:18] LABS: ABSOLUTE BASOPHILS # (AUTO) 0.1 10^3/uL (0.0-0.2); ABSOLUTE EOSINOPHILS # (AUTO) 0.1 10^3/uL (0.0-0.6); ABSOLUTE LYMPHOCYTES (AUTO) 5.5 10^3/uL (0.5-4.7); ABSOLUTE NEUT (AUTO) 8.4 10^3/uL (1.7-8.2); BASOPHILS % (AUTO) 0.4 % (0-2); EOSINOPHILS % (AUTO) 0.9 % (0-6); HEMATOCRIT 27.1 % (37.9-51.0); HEMOGLOBIN 8.8 g/dL (13.5-17.0); LYMPHOCYTES % (AUTO) 36.7 % (13-45); MEAN CORPUSCULAR HEMOGLOBIN 26.3 pg (27.0-33.4); MEAN CORPUSCULAR HGB CONC 32.6 g/dL (32.0-36.0); MEAN CORPUSCULAR VOLUME 81 fl (80-97); MONOCYTES % (AUTO) 6.5 % (3-13); PLATELET COUNT 511 10^3/uL (150-450); RED BLOOD COUNT 3.36 10^6/uL (4.35-5.55); RED CELL DISTRIBUTION WIDTH 16.4 % (11.5-14.0); SEGMENTED NEUTROPHILS % (AUTO) 55.5 % (42-78); TOTAL CELLS COUNTED % (AUTO) 100 %; WHITE BLOOD COUNT 15.1 10^3/uL (4.0-10.5)
[2017-06-21 05:28] LABS: ANION GAP 8 (5-19); BLOOD UREA NITROGEN 10 mg/dL (7-20); CALCIUM 9.2 mg/dL (8.4-10.2); CARBON DIOXIDE 29 mmol/L (22-30); CHLORIDE 101 mmol/L (98-107); GLUCOSE 94 mg/dL (75-110); POTASSIUM 4.2 mmol/L (3.6-5.0); SODIUM 137.8 mmol/L (137-145)
[2017-06-21] MEDS: NORMAL SALINE 10 ML SDV (AFTER EACH USE) IV PRN (05:32)
[2017-06-21] MEDS: CEFAZOLIN 2 GM/D5W RTU 2 GM/50 ML RTUPB IV SCH ×3 (05:32→21:30)
[2017-06-21] MEDS: METFORMIN HCL 500 MG TABLET PO SCH ×2 (09:12→16:13)
[2017-06-21] MEDS: NORMAL SALINE 10 ML SDV (SCHEDULED) IV SCH ×2 (09:14→21:30)
[2017-06-21] MEDS: POLYETHYLENE GLYCOL 3350 POWDER 17 GM/1 PACKET PO SCH (09:15)
--- NOTE | 2017-06-21 18:41 | PDOC PROGRESS REPORT ---
Subjective Progress Note for:: 06/21/17 Subjective:: No new issues. Reason For Visit: SEPSIS ENDOCARDITIS, POLYARTHRITIS, IV DRUG ABUSE Physical Exam Vital Signs: Temp Pulse Resp BP Pulse Ox 98.6 F 100 18 121/66 100 06/21/17 15:10 06/21/17 15:10 06/21/17 15:10 06/21/17 15:10 06/21/17 15:10 Pulse Oximeter Continuous Start: 05/05/17 11: 26 Freq: RTQ4 Status: Complete Document 05/11/17 08:00 JDR (Rec: 05/11/17 11:14 JDR [email or web address]) Pulse Oximetry Assessment Oxygen Saturation (92-100) 98 Oxygen Flow Rate (L/min) 2 Oxygen Delivery Method Nasal Cannula Equipment Usage Equipment in Use Continuous SpO2 Machine # 8 Intake & Output 06/20/17 06/21/17 06/22/17 06:59 06:59 06:59 Intake Total 1724 1061 Output Total 675 Balance 1049 1061 Weight 67 kg General appearance: PRESENT: no acute distress, well-developed, well-nourished Head exam: PRESENT: atraumatic, normocephalic Eye exam: PRESENT: conjunctiva pink, EOMI. ABSENT: scleral icterus Ear exam: PRESENT: normal external ear exam Mouth exam: PRESENT: moist, tongue midline Neck exam: ABSENT: carotid bruit, JVD, lymphadenopathy, thyromegaly Respiratory exam: PRESENT: clear to auscultation antonio. ABSENT: rales, rhonchi, wheezes Cardiovascular exam: PRESENT: RRR. ABSENT: diastolic murmur, rubs, systolic murmur Pulses: PRESENT: normal dorsalis pedis pul Vascular exam: PRESENT: normal capillary refill GI/Abdominal exam: PRESENT: normal bowel sounds, soft. ABSENT: distended, guarding, mass, organolmegaly, rebound, tenderness Rectal exam: PRESENT: deferred Extremities exam: PRESENT: full ROM. ABSENT: calf tenderness, clubbing, pedal edema Neurological exam: PRESENT: alert, awake, oriented to person, oriented to place , oriented to time, oriented to situation, CN II-XII grossly intact. ABSENT: motor sensory deficit Psychiatric exam: PRESENT: appropriate affect, normal mood. ABSENT: homicidal ideation, suicidal ideation Skin exam: PRESENT: dry, intact, warm. ABSENT: cyanosis, rash Results Laboratory Results: 06/21/17 05:00 06/21/17 05:00 06/21/17 06/21/17 05:00 05:00 WBC 15.1 H RBC 3.36 L Hgb 8.8 L Hct 27.1 L MCV 81 MCH 26.3 L MCHC 32.6 RDW 16.4 H Plt Count 511 H Seg Neutrophils % 55.5 Lymphocytes % 36.7 Monocytes % 6.5 Eosinophils % 0.9 Basophils % 0.4 Absolute Neutrophils 8.4 H Absolute Lymphocytes 5.5 H Absolute Monocytes 1.0 Absolute Eosinophils 0.1 Absolute Basophils 0.1 Sodium 137.8 Potassium 4.2 Chloride 101 Carbon Dioxide 29 Anion Gap 8 BUN 10 Creatinine 0.42 L Est GFR ( Amer) > 60 Est GFR (Non-Af Amer) > 60 Glucose 94 Calcium 9.2 Impressions: Head CT 05/05/17 00:00 IMPRESSION: Limited negative study EVIDENCE OF ACUTE STROKE: NO. Lumbar Spine X-Ray 05/05/17 00:00 IMPRESSION: No acute fracture or malalignment. Multilevel disc space loss of height with anterior osteophyte formation Hip X-Ray 05/05/17 03:18 IMPRESSION: No acute findings. 2010 [employer]- All Rights Reserved Wrist X-Ray 05/05/17 03:18 IMPRESSION: No acute findings. Limited scaphoid views. 2010 [employer]- All Rights Reserved Chest X-Ray 05/05/17 03:23 IMPRESSION: No acute cardiopulmonary findings. 2010 [employer]- All Rights Reserved Guidance Fluoroscopy 05/12/17 00:00 IMPRESSION: SUCCESSFUL PLACEMENT OF A 5 FR DUAL LUMEN 35 CM PICC IN THE RIGHT BASILIC VEIN. Interventional Vascular Procedure 05/12/17 00:00 IMPRESSION: SUCCESSFUL PLACEMENT OF A 5 FR DUAL LUMEN 35 CM PICC IN THE RIGHT BASILIC VEIN. PICC Line Insertion 05/12/17 00:00 IMPRESSION: SUCCESSFUL PLACEMENT OF A 5 FR DUAL LUMEN 35 CM PICC IN THE RIGHT BASILIC VEIN. Knee X-Ray 05/26/17 00:00 IMPRESSION: Large suprapatellar knee joint effusion with air bubbles from septic joint. Soft tissue air bubbles in the medial right upper calf worrisome for infection with gas-forming organism. Lower Extremity MRI 05/26/17 00:00 IMPRESSION: No osteomyelitis. Septic joint containing fluid and gas and there is extensive fluid in the popliteal fossa communicating with the joint with both fluid and gas. Measures 13 cm. Mild edema in adjacent muscles. Tibia/Fibula X-Ray 05/26/17 00:00 IMPRESSION: LARGE JOINT EFFUSION. MULTIPLE BUBBLES OF GAS IN THE SOFT TISSUES OF THE PROXIMAL CALF. Assessment & Plan - Diagnosis (1) MRSA bacteremia Is this a current diagnosis for this admission?: Yes Plan: We will have patient continue with antibiotics. Patient stop date is June 28. (2) Mild protein-calorie malnutrition Is this a current diagnosis for this admission?: Yes Plan: We will encourage nutritional intake. (3) Diabetes mellitus Is this a current diagnosis for this admission?: Yes Plan: Metformin (4) Endocarditis of tricuspid valve Is this a current diagnosis for this admission?: Yes Plan: Secondary to MRSA: Patient will complete antibiotics on June 28. (5) Hyponatremia Is this a current diagnosis for this admission?: Yes Plan: Resolved. (6) Iron deficiency anemia Is this a current diagnosis for this admission?: Yes Plan: We will need to be monitored once patient is discharged feel that is most likely secondary to nutritional status and acute illness. - Time Time Spent with patient: 15-24 minutes
[2017-06-22] MEDS: IBUPROFEN 600 MG TABLET PO SCH ×5 (01:44→23:58)
[2017-06-22] MEDS: CEFAZOLIN 2 GM/D5W RTU 2 GM/50 ML RTUPB IV SCH ×3 (05:10→21:21)
[2017-06-22 05:54] LABS: ABSOLUTE EOSINOPHILS # (AUTO) 0.1 10^3/uL (0.0-0.6); ABSOLUTE LYMPHOCYTES (AUTO) 6.3 10^3/uL (0.5-4.7); ABSOLUTE MONOCYTES (AUTO) 1.1 10^3/uL (0.1-1.4); ABSOLUTE NEUT (AUTO) 10.2 10^3/uL (1.7-8.2); BASOPHILS % (AUTO) 0.2 % (0-2); EOSINOPHILS % (AUTO) 0.7 % (0-6); HEMATOCRIT 28.6 % (37.9-51.0); HEMOGLOBIN 9.2 g/dL (13.5-17.0); LYMPHOCYTES % (AUTO) 35.3 % (13-45); MEAN CORPUSCULAR HEMOGLOBIN 26.1 pg (27.0-33.4); MEAN CORPUSCULAR HGB CONC 32.1 g/dL (32.0-36.0); MEAN CORPUSCULAR VOLUME 81 fl (80-97); MONOCYTES % (AUTO) 6.1 % (3-13); PLATELET COUNT 547 10^3/uL (150-450); RED BLOOD COUNT 3.51 10^6/uL (4.35-5.55); RED CELL DISTRIBUTION WIDTH 16.9 % (11.5-14.0); SEGMENTED NEUTROPHILS % (AUTO) 57.7 % (42-78); TOTAL CELLS COUNTED % (AUTO) 100 %; WHITE BLOOD COUNT 17.8 10^3/uL (4.0-10.5)
[2017-06-22 06:13] LABS: ALANINE AMINOTRANSFERASE 17 U/L (21-72); ALBUMIN 3.2 g/dL (3.5-5.0); ALKALINE PHOSPHATASE 89 U/L (38-126); ANION GAP 10 (5-19); ASPARTATE AMINO TRANSFERASE 23 U/L (17-59); BILIRUBIN,DIRECT 0.1 mg/dL (0.0-0.4); BILIRUBIN,TOTAL 0.2 mg/dL (0.2-1.3); BLOOD UREA NITROGEN 7 mg/dL (7-20); CALCIUM 9.2 mg/dL (8.4-10.2); CARBON DIOXIDE 29 mmol/L (22-30); CHLORIDE 101 mmol/L (98-107); GLUCOSE 105 mg/dL (75-110); MAGNESIUM 1.7 mg/dL (1.6-2.3); POTASSIUM 4.4 mmol/L (3.6-5.0); SODIUM 139.9 mmol/L (137-145); TOTAL PROTEIN 7.6 g/dL (6.3-8.2)
[2017-06-22] MEDS: METFORMIN HCL 500 MG TABLET PO SCH ×2 (08:39→15:44)
[2017-06-22] MEDS: NORMAL SALINE 10 ML SDV (SCHEDULED) IV SCH ×2 (09:57→21:21)
[2017-06-22] MEDS: POLYETHYLENE GLYCOL 3350 POWDER 17 GM/1 PACKET PO SCH (10:00)
--- NOTE | 2017-06-22 15:41 | PDOC PROGRESS REPORT ---
Subjective Progress Note for:: 06/22/17 Subjective:: Pt states that she is having knee pain. Later during the day patient was seen ambulating the hallway. Reason For Visit: SEPSIS ENDOCARDITIS, POLYARTHRITIS, IV DRUG ABUSE Physical Exam Vital Signs: Temp Pulse Resp BP Pulse Ox 98.5 F 103 H 17 120/65 100 06/22/17 11:28 06/22/17 11:28 06/22/17 11:28 06/22/17 11:28 06/22/17 11:28 Pulse Oximeter Continuous Start: 05/05/17 11: 26 Freq: RTQ4 Status: Complete Document 05/11/17 08:00 JDR (Rec: 05/11/17 11:14 JDR [email or web address]) Pulse Oximetry Assessment Oxygen Saturation (92-100) 98 Oxygen Flow Rate (L/min) 2 Oxygen Delivery Method Nasal Cannula Equipment Usage Equipment in Use Continuous SpO2 Machine # 8 Intake & Output 06/21/17 06/22/17 06/23/17 06:59 06:59 06:59 Intake Total 1061 2644 820 Output Total 1675 Balance 1061 969 820 Weight 67.6 kg General appearance: PRESENT: no acute distress, thin Head exam: PRESENT: atraumatic, normocephalic Eye exam: PRESENT: conjunctiva pink, EOMI. ABSENT: scleral icterus Ear exam: PRESENT: normal external ear exam Mouth exam: PRESENT: moist, tongue midline Neck exam: ABSENT: carotid bruit, JVD, lymphadenopathy, thyromegaly Respiratory exam: PRESENT: clear to auscultation antonio. ABSENT: rales, rhonchi, wheezes Cardiovascular exam: PRESENT: RRR. ABSENT: diastolic murmur, rubs, systolic murmur Pulses: PRESENT: normal dorsalis pedis pul Vascular exam: PRESENT: normal capillary refill GI/Abdominal exam: PRESENT: normal bowel sounds, soft. ABSENT: distended, guarding, mass, organolmegaly, rebound, tenderness Rectal exam: PRESENT: deferred Extremities exam: PRESENT: full ROM. ABSENT: calf tenderness, clubbing, pedal edema Neurological exam: PRESENT: alert, awake, oriented to person, oriented to place , oriented to time, oriented to situation, CN II-XII grossly intact. ABSENT: motor sensory deficit Psychiatric exam: PRESENT: appropriate affect, normal mood. ABSENT: homicidal ideation, suicidal ideation Skin exam: PRESENT: dry, intact, warm. ABSENT: cyanosis, rash Results Laboratory Results: 06/22/17 04:50 06/22/17 04:50 06/22/17 06/22/17 04:50 04:50 WBC 17.8 H RBC 3.51 L Hgb 9.2 L Hct 28.6 L MCV 81 MCH 26.1 L MCHC 32.1 RDW 16.9 H Plt Count 547 H Seg Neutrophils % 57.7 Lymphocytes % 35.3 Monocytes % 6.1 Eosinophils % 0.7 Basophils % 0.2 Absolute Neutrophils 10.2 H Absolute Lymphocytes 6.3 H Absolute Monocytes 1.1 Absolute Eosinophils 0.1 Absolute Basophils 0.0 Sodium 139.9 Potassium 4.4 Chloride 101 Carbon Dioxide 29 Anion Gap 10 BUN 7 Creatinine 0.40 L Est GFR ( Amer) > 60 Est GFR (Non-Af Amer) > 60 Glucose 105 Calcium 9.2 Magnesium 1.7 Total Bilirubin 0.2 AST 23 ALT 17 L Alkaline Phosphatase 89 Total Protein 7.6 Albumin 3.2 L Impressions: Head CT 05/05/17 00:00 IMPRESSION: Limited negative study EVIDENCE OF ACUTE STROKE: NO. Lumbar Spine X-Ray 05/05/17 00:00 IMPRESSION: No acute fracture or malalignment. Multilevel disc space loss of height with anterior osteophyte formation Hip X-Ray 05/05/17 03:18 IMPRESSION: No acute findings. 2010 [employer] All Rights Reserved Wrist X-Ray 05/05/17 03:18 IMPRESSION: No acute findings. Limited scaphoid views. 2010 [employer] All Rights Reserved Chest X-Ray 05/05/17 03:23 IMPRESSION: No acute cardiopulmonary findings. 2010 [employer] All Rights Reserved Guidance Fluoroscopy 05/12/17 00:00 IMPRESSION: SUCCESSFUL PLACEMENT OF A 5 FR DUAL LUMEN 35 CM PICC IN THE RIGHT BASILIC VEIN. Interventional Vascular Procedure 05/12/17 00:00 IMPRESSION: SUCCESSFUL PLACEMENT OF A 5 FR DUAL LUMEN 35 CM PICC IN THE RIGHT BASILIC VEIN. PICC Line Insertion 05/12/17 00:00 IMPRESSION: SUCCESSFUL PLACEMENT OF A 5 FR DUAL LUMEN 35 CM PICC IN THE RIGHT BASILIC VEIN. Knee X-Ray 05/26/17 00:00 IMPRESSION: Large suprapatellar knee joint effusion with air bubbles from septic joint. Soft tissue air bubbles in the medial right upper calf worrisome for infection with gas-forming organism. Lower Extremity MRI 05/26/17 00:00 IMPRESSION: No osteomyelitis. Septic joint containing fluid and gas and there is extensive fluid in the popliteal fossa communicating with the joint with both fluid and gas. Measures 13 cm. Mild edema in adjacent muscles. Tibia/Fibula X-Ray 05/26/17 00:00 IMPRESSION: LARGE JOINT EFFUSION. MULTIPLE BUBBLES OF GAS IN THE SOFT TISSUES OF THE PROXIMAL CALF. Assessment & Plan - Diagnosis (1) MRSA bacteremia Is this a current diagnosis for this admission?: Yes Plan: We will have patient continue with antibiotics. Patient stop date is June 28. (2) Mild protein-calorie malnutrition Is this a current diagnosis for this admission?: Yes Plan: We will encourage nutritional intake. (3) Diabetes mellitus Is this a current diagnosis for this admission?: Yes Plan: Metformin (4) Endocarditis of tricuspid valve Is this a current diagnosis for this admission?: Yes Plan: Secondary to MRSA: Patient will complete antibiotics on June 28. (5) Hyponatremia Is this a current diagnosis for this admission?: Yes Plan: Resolved. (6) Iron deficiency anemia Is this a current diagnosis for this admission?: Yes Plan: We will need to be monitored once patient is discharged feel that is most likely secondary to nutritional status and acute illness. - Time Time Spent with patient: 15-24 minutes
[2017-06-23] MEDS: CEFAZOLIN 2 GM/D5W RTU 2 GM/50 ML RTUPB IV SCH ×3 (05:18→22:13)
[2017-06-23] MEDS: IBUPROFEN 600 MG TABLET PO SCH ×3 (06:09→18:36)
[2017-06-23] MEDS: METFORMIN HCL 500 MG TABLET PO SCH ×2 (09:04→16:38)
[2017-06-23] MEDS: NORMAL SALINE 10 ML SDV (SCHEDULED) IV SCH ×2 (09:05→22:13)
[2017-06-23] MEDS: POLYETHYLENE GLYCOL 3350 POWDER 17 GM/1 PACKET PO SCH (09:07)
--- NOTE | 2017-06-23 21:05 | PDOC PROGRESS REPORT ---
Subjective Progress Note for:: 06/23/17 Subjective:: No new issues Reason For Visit: SEPSIS ENDOCARDITIS, POLYARTHRITIS, IV DRUG ABUSE Physical Exam Vital Signs: Temp Pulse Resp BP Pulse Ox 98.2 F 105 H 18 121/65 100 06/23/17 19:24 06/23/17 19:24 06/23/17 19:24 06/23/17 19:24 06/23/17 19:24 Pulse Oximeter Continuous Start: 05/05/17 11: 26 Freq: RTQ4 Status: Complete Document 05/11/17 08:00 JDR (Rec: 05/11/17 11:14 JDR [email or web address]) Pulse Oximetry Assessment Oxygen Saturation (92-100) 98 Oxygen Flow Rate (L/min) 2 Oxygen Delivery Method Nasal Cannula Equipment Usage Equipment in Use Continuous SpO2 Machine # 8 Intake & Output 06/22/17 06/23/17 06/24/17 06:59 06:59 06:59 Intake Total 2644 1983 824 Output Total 1675 850 Balance 969 1133 824 Weight 67.6 kg General appearance: PRESENT: no acute distress, well-developed, well-nourished Head exam: PRESENT: atraumatic, normocephalic Eye exam: PRESENT: conjunctiva pink, EOMI. ABSENT: scleral icterus Ear exam: PRESENT: normal external ear exam Mouth exam: PRESENT: moist, tongue midline Neck exam: ABSENT: carotid bruit, JVD, lymphadenopathy, thyromegaly Respiratory exam: PRESENT: clear to auscultation antonio. ABSENT: rales, rhonchi, wheezes Cardiovascular exam: PRESENT: RRR. ABSENT: diastolic murmur, rubs, systolic murmur Pulses: PRESENT: normal dorsalis pedis pul Vascular exam: PRESENT: normal capillary refill GI/Abdominal exam: PRESENT: normal bowel sounds, soft. ABSENT: distended, guarding, mass, organolmegaly, rebound, tenderness Rectal exam: PRESENT: deferred Extremities exam: PRESENT: other - right knee swollen.. ABSENT: calf tenderness , clubbing, pedal edema Neurological exam: PRESENT: alert, awake, oriented to person, oriented to place , oriented to time, oriented to situation, CN II-XII grossly intact. ABSENT: motor sensory deficit Psychiatric exam: PRESENT: appropriate affect, normal mood. ABSENT: homicidal ideation, suicidal ideation Skin exam: PRESENT: dry, intact, warm. ABSENT: cyanosis, rash Results Laboratory Results: 06/22/17 04:50 06/22/17 04:50 Impressions: Head CT 05/05/17 00:00 IMPRESSION: Limited negative study EVIDENCE OF ACUTE STROKE: NO. Lumbar Spine X-Ray 05/05/17 00:00 IMPRESSION: No acute fracture or malalignment. Multilevel disc space loss of height with anterior osteophyte formation Hip X-Ray 05/05/17 03:18 IMPRESSION: No acute findings. 2010 [employer]- All Rights Reserved Wrist X-Ray 05/05/17 03:18 IMPRESSION: No acute findings. Limited scaphoid views. 2010 [employer]- All Rights Reserved Chest X-Ray 05/05/17 03:23 IMPRESSION: No acute cardiopulmonary findings. 2010 [employer]- All Rights Reserved Guidance Fluoroscopy 05/12/17 00:00 IMPRESSION: SUCCESSFUL PLACEMENT OF A 5 FR DUAL LUMEN 35 CM PICC IN THE RIGHT BASILIC VEIN. Interventional Vascular Procedure 05/12/17 00:00 IMPRESSION: SUCCESSFUL PLACEMENT OF A 5 FR DUAL LUMEN 35 CM PICC IN THE RIGHT BASILIC VEIN. PICC Line Insertion 05/12/17 00:00 IMPRESSION: SUCCESSFUL PLACEMENT OF A 5 FR DUAL LUMEN 35 CM PICC IN THE RIGHT BASILIC VEIN. Knee X-Ray 05/26/17 00:00 IMPRESSION: Large suprapatellar knee joint effusion with air bubbles from septic joint. Soft tissue air bubbles in the medial right upper calf worrisome for infection with gas-forming organism. Lower Extremity MRI 05/26/17 00:00 IMPRESSION: No osteomyelitis. Septic joint containing fluid and gas and there is extensive fluid in the popliteal fossa communicating with the joint with both fluid and gas. Measures 13 cm. Mild edema in adjacent muscles. Tibia/Fibula X-Ray 05/26/17 00:00 IMPRESSION: LARGE JOINT EFFUSION. MULTIPLE BUBBLES OF GAS IN THE SOFT TISSUES OF THE PROXIMAL CALF. Assessment & Plan - Diagnosis (1) MRSA bacteremia Is this a current diagnosis for this admission?: Yes Plan: We will have patient continue with antibiotics. Patient stop date is June 28. (2) Mild protein-calorie malnutrition Is this a current diagnosis for this admission?: Yes Plan: We will encourage nutritional intake. (3) Diabetes mellitus Is this a current diagnosis for this admission?: Yes Plan: Metformin (4) Endocarditis of tricuspid valve Is this a current diagnosis for this admission?: Yes Plan: Secondary to MRSA: Patient will complete antibiotics on June 28. (5) Hyponatremia Is this a current diagnosis for this admission?: Yes Plan: Resolved. (6) Iron deficiency anemia Is this a current diagnosis for this admission?: Yes Plan: We will need to be monitored once patient is discharged feel that is most likely secondary to nutritional status and acute illness. (7) Septic arthritis of knee, right Qualifiers: Septic arthritis organism: due to unspecified organism Qualified Code(s): M00.9 - Pyogenic arthritis, unspecified Is this a current diagnosis for this admission?: Yes Plan: Continue current treatment. - Time Time Spent with patient: Less than 15 minutes
[2017-06-23] MEDS: OXYCODONE-ACETAMINOPHEN 5-325 MG TABLET PO PRN (22:15)
[2017-06-24] MEDS: IBUPROFEN 600 MG TABLET PO SCH ×4 (00:05→18:45)
[2017-06-24] MEDS: OXYCODONE-ACETAMINOPHEN 5-325 MG TABLET PO PRN ×4 (05:33→21:43)
[2017-06-24] MEDS: CEFAZOLIN 2 GM/D5W RTU 2 GM/50 ML RTUPB IV SCH ×3 (05:33→22:16)
[2017-06-24] MEDS: METFORMIN HCL 500 MG TABLET PO SCH ×2 (08:59→17:44)
[2017-06-24] MEDS: NORMAL SALINE 10 ML SDV (SCHEDULED) IV SCH ×2 (08:59→22:16)
[2017-06-24] MEDS: POLYETHYLENE GLYCOL 3350 POWDER 17 GM/1 PACKET PO SCH (09:00)
--- NOTE | 2017-06-24 17:45 | PDOC PROGRESS REPORT ---
Subjective Progress Note for:: 06/24/17 Subjective:: Pt states that he would like pain medication. Pt states that he has been walking around. Reason For Visit: SEPSIS ENDOCARDITIS, POLYARTHRITIS, IV DRUG ABUSE Physical Exam Vital Signs: Temp Pulse Resp BP Pulse Ox 98.0 F 100 16 120/76 99 06/24/17 15:29 06/24/17 15:29 06/24/17 15:29 06/24/17 15:29 06/24/17 15:29 Pulse Oximeter Continuous Start: 05/05/17 11: 26 Freq: RTQ4 Status: Complete Document 05/11/17 08:00 JDR (Rec: 05/11/17 11:14 JDR [email or web address]) Pulse Oximetry Assessment Oxygen Saturation (92-100) 98 Oxygen Flow Rate (L/min) 2 Oxygen Delivery Method Nasal Cannula Equipment Usage Equipment in Use Continuous SpO2 Machine # 8 Intake & Output 06/23/17 06/24/17 06/25/17 06:59 06:59 06:59 Intake Total 1983 1747 Output Total 850 525 Balance 1133 1222 General appearance: PRESENT: no acute distress, well-developed, well-nourished Head exam: PRESENT: atraumatic, normocephalic Eye exam: PRESENT: conjunctiva pink, EOMI Ear exam: PRESENT: normal external ear exam Mouth exam: PRESENT: moist, tongue midline Neck exam: ABSENT: carotid bruit, JVD, lymphadenopathy, thyromegaly Respiratory exam: PRESENT: clear to auscultation antonio. ABSENT: rales, rhonchi, wheezes Cardiovascular exam: PRESENT: RRR. ABSENT: diastolic murmur, rubs, systolic murmur Pulses: PRESENT: normal dorsalis pedis pul Vascular exam: PRESENT: normal capillary refill GI/Abdominal exam: PRESENT: normal bowel sounds, soft. ABSENT: distended, guarding, mass, organolmegaly, rebound, tenderness Rectal exam: PRESENT: deferred Extremities exam: PRESENT: other - right knee swelling.. ABSENT: calf tenderness, clubbing, pedal edema Neurological exam: PRESENT: alert, awake, oriented to person, oriented to place , oriented to time, oriented to situation, CN II-XII grossly intact. ABSENT: motor sensory deficit Psychiatric exam: PRESENT: appropriate affect, normal mood. ABSENT: homicidal ideation, suicidal ideation Skin exam: PRESENT: dry, intact, warm. ABSENT: cyanosis, rash Results Laboratory Results: 06/22/17 04:50 06/22/17 04:50 Impressions: Head CT 05/05/17 00:00 IMPRESSION: Limited negative study EVIDENCE OF ACUTE STROKE: NO. Lumbar Spine X-Ray 05/05/17 00:00 IMPRESSION: No acute fracture or malalignment. Multilevel disc space loss of height with anterior osteophyte formation Hip X-Ray 05/05/17 03:18 IMPRESSION: No acute findings. 2010 [employer]- All Rights Reserved Wrist X-Ray 05/05/17 03:18 IMPRESSION: No acute findings. Limited scaphoid views. 2010 [employer]- All Rights Reserved Chest X-Ray 05/05/17 03:23 IMPRESSION: No acute cardiopulmonary findings. 2010 [employer]- All Rights Reserved Guidance Fluoroscopy 05/12/17 00:00 IMPRESSION: SUCCESSFUL PLACEMENT OF A 5 FR DUAL LUMEN 35 CM PICC IN THE RIGHT BASILIC VEIN. Interventional Vascular Procedure 05/12/17 00:00 IMPRESSION: SUCCESSFUL PLACEMENT OF A 5 FR DUAL LUMEN 35 CM PICC IN THE RIGHT BASILIC VEIN. PICC Line Insertion 05/12/17 00:00 IMPRESSION: SUCCESSFUL PLACEMENT OF A 5 FR DUAL LUMEN 35 CM PICC IN THE RIGHT BASILIC VEIN. Knee X-Ray 05/26/17 00:00 IMPRESSION: Large suprapatellar knee joint effusion with air bubbles from septic joint. Soft tissue air bubbles in the medial right upper calf worrisome for infection with gas-forming organism. Lower Extremity MRI 05/26/17 00:00 IMPRESSION: No osteomyelitis. Septic joint containing fluid and gas and there is extensive fluid in the popliteal fossa communicating with the joint with both fluid and gas. Measures 13 cm. Mild edema in adjacent muscles. Tibia/Fibula X-Ray 05/26/17 00:00 IMPRESSION: LARGE JOINT EFFUSION. MULTIPLE BUBBLES OF GAS IN THE SOFT TISSUES OF THE PROXIMAL CALF. Assessment & Plan - Diagnosis (1) MRSA bacteremia Is this a current diagnosis for this admission?: Yes Plan: We will have patient continue with antibiotics. Patient stop date is June 28. (2) Mild protein-calorie malnutrition Is this a current diagnosis for this admission?: Yes Plan: We will encourage nutritional intake. (3) Diabetes mellitus Is this a current diagnosis for this admission?: Yes Plan: Metformin (4) Endocarditis of tricuspid valve Is this a current diagnosis for this admission?: Yes Plan: Secondary to MRSA: Patient will complete antibiotics on June 28. Will repeat Blood cultures. (5) Hyponatremia Is this a current diagnosis for this admission?: Yes Plan: Resolved. (6) Iron deficiency anemia Is this a current diagnosis for this admission?: Yes Plan: We will need to be monitored once patient is discharged feel that is most likely secondary to nutritional status and acute illness. (7) Septic arthritis of knee, right Qualifiers: Septic arthritis organism: due to unspecified organism Qualified Code(s): M00.9 - Pyogenic arthritis, unspecified Is this a current diagnosis for this admission?: Yes Plan: Continue current treatment. - Time Time Spent with patient: 15-24 minutes
[2017-06-25] MEDS: IBUPROFEN 600 MG TABLET PO SCH ×4 (01:16→18:03)
[2017-06-25] MEDS: CEFAZOLIN 2 GM/D5W RTU 2 GM/50 ML RTUPB IV SCH ×3 (05:10→21:26)
[2017-06-25] MEDS: NORMAL SALINE 10 ML SDV (AFTER EACH USE) IV PRN (05:10)
[2017-06-25] MEDS: OXYCODONE-ACETAMINOPHEN 5-325 MG TABLET PO PRN ×4 (05:10→21:24)
[2017-06-25 05:33] LABS: ABSOLUTE EOSINOPHILS # (AUTO) 0.1 10^3/uL (0.0-0.6); ABSOLUTE LYMPHOCYTES (AUTO) 5.5 10^3/uL (0.5-4.7); ABSOLUTE NEUT (AUTO) 10.1 10^3/uL (1.7-8.2); BASOPHILS % (AUTO) 0.3 % (0-2); EOSINOPHILS % (AUTO) 0.7 % (0-6); HEMATOCRIT 28.2 % (37.9-51.0); HEMOGLOBIN 9.3 g/dL (13.5-17.0); LYMPHOCYTES % (AUTO) 32.8 % (13-45); MEAN CORPUSCULAR HEMOGLOBIN 26.4 pg (27.0-33.4); MEAN CORPUSCULAR HGB CONC 32.9 g/dL (32.0-36.0); MEAN CORPUSCULAR VOLUME 80 fl (80-97); MONOCYTES % (AUTO) 5.9 % (3-13); PLATELET COUNT 511 10^3/uL (150-450); RED BLOOD COUNT 3.52 10^6/uL (4.35-5.55); RED CELL DISTRIBUTION WIDTH 16.8 % (11.5-14.0); SEGMENTED NEUTROPHILS % (AUTO) 60.3 % (42-78); TOTAL CELLS COUNTED % (AUTO) 100 %; WHITE BLOOD COUNT 16.7 10^3/uL (4.0-10.5)
[2017-06-25 05:51] LABS: ALANINE AMINOTRANSFERASE 22 U/L (21-72); ALBUMIN 3.4 g/dL (3.5-5.0); ALKALINE PHOSPHATASE 87 U/L (38-126); ANION GAP 13 (5-19); ASPARTATE AMINO TRANSFERASE 26 U/L (17-59); BILIRUBIN,DIRECT 0.1 mg/dL (0.0-0.4); BILIRUBIN,TOTAL 0.2 mg/dL (0.2-1.3); BLOOD UREA NITROGEN 9 mg/dL (7-20); CALCIUM 9.2 mg/dL (8.4-10.2); CARBON DIOXIDE 26 mmol/L (22-30); CHLORIDE 102 mmol/L (98-107); GLUCOSE 121 mg/dL (75-110); POTASSIUM 4.3 mmol/L (3.6-5.0); SODIUM 140.7 mmol/L (137-145); TOTAL PROTEIN 7.7 g/dL (6.3-8.2)
[2017-06-25] MEDS: METFORMIN HCL 500 MG TABLET PO SCH ×2 (09:18→15:24)
[2017-06-25] MEDS: NORMAL SALINE 10 ML SDV (SCHEDULED) IV SCH ×2 (09:19→21:26)
[2017-06-25] MEDS: POLYETHYLENE GLYCOL 3350 POWDER 17 GM/1 PACKET PO SCH (09:20)
--- NOTE | 2017-06-25 14:29 | PDOC PROGRESS REPORT ---
Subjective Progress Note for:: 06/25/17 Subjective:: Pt states that he noticed a lump on his abd. Reason For Visit: SEPSIS ENDOCARDITIS, POLYARTHRITIS, IV DRUG ABUSE Physical Exam Vital Signs: Temp Pulse Resp BP Pulse Ox 98.5 F 105 H 16 116/71 96 06/25/17 12:12 06/25/17 12:12 06/25/17 12:12 06/25/17 12:12 06/25/17 12:12 Pulse Oximeter Continuous Start: 05/05/17 11: 26 Freq: RTQ4 Status: Complete Document 05/11/17 08:00 JDR (Rec: 05/11/17 11:14 JDR [email or web address]) Pulse Oximetry Assessment Oxygen Saturation (92-100) 98 Oxygen Flow Rate (L/min) 2 Oxygen Delivery Method Nasal Cannula Equipment Usage Equipment in Use Continuous SpO2 Machine # 8 Intake & Output 06/24/17 06/25/17 06/26/17 06:59 06:59 06:59 Intake Total 1747 1650 1000 Output Total 525 Balance 1222 1650 1000 General appearance: PRESENT: no acute distress, well-developed, well-nourished Head exam: PRESENT: atraumatic, normocephalic Eye exam: PRESENT: conjunctiva pink, EOMI. ABSENT: scleral icterus Ear exam: PRESENT: normal external ear exam Mouth exam: PRESENT: moist, tongue midline Neck exam: ABSENT: carotid bruit, JVD, lymphadenopathy, thyromegaly Respiratory exam: PRESENT: clear to auscultation antonio. ABSENT: rales, rhonchi, wheezes Cardiovascular exam: PRESENT: RRR. ABSENT: diastolic murmur, rubs, systolic murmur Pulses: PRESENT: normal dorsalis pedis pul Vascular exam: PRESENT: normal capillary refill GI/Abdominal exam: PRESENT: other - Left lower qd hernia Rectal exam: PRESENT: deferred Extremities exam: PRESENT: other - right knee swollen. ABSENT: calf tenderness , clubbing, pedal edema Neurological exam: PRESENT: alert, awake, oriented to person, oriented to place , oriented to time, oriented to situation, CN II-XII grossly intact. ABSENT: motor sensory deficit Psychiatric exam: PRESENT: appropriate affect, normal mood. ABSENT: homicidal ideation, suicidal ideation Skin exam: PRESENT: dry, intact, warm. ABSENT: cyanosis, rash Results Laboratory Results: 06/25/17 05:08 06/25/17 05:08 06/25/17 06/25/17 05:08 05:08 WBC 16.7 H RBC 3.52 L Hgb 9.3 L Hct 28.2 L MCV 80 MCH 26.4 L MCHC 32.9 RDW 16.8 H Plt Count 511 H Seg Neutrophils % 60.3 Lymphocytes % 32.8 Monocytes % 5.9 Eosinophils % 0.7 Basophils % 0.3 Absolute Neutrophils 10.1 H Absolute Lymphocytes 5.5 H Absolute Monocytes 1.0 Absolute Eosinophils 0.1 Absolute Basophils 0.0 Sodium 140.7 Potassium 4.3 Chloride 102 Carbon Dioxide 26 Anion Gap 13 BUN 9 Creatinine 0.47 L Est GFR ( Amer) > 60 Est GFR (Non-Af Amer) > 60 Glucose 121 H Calcium 9.2 Total Bilirubin 0.2 AST 26 ALT 22 Alkaline Phosphatase 87 Total Protein 7.7 Albumin 3.4 L Impressions: Head CT 05/05/17 00:00 IMPRESSION: Limited negative study EVIDENCE OF ACUTE STROKE: NO. Lumbar Spine X-Ray 05/05/17 00:00 IMPRESSION: No acute fracture or malalignment. Multilevel disc space loss of height with anterior osteophyte formation Hip X-Ray 05/05/17 03:18 IMPRESSION: No acute findings. 2010 [employer]- All Rights Reserved Wrist X-Ray 05/05/17 03:18 IMPRESSION: No acute findings. Limited scaphoid views. 2010 [employer]- All Rights Reserved Chest X-Ray 05/05/17 03:23 IMPRESSION: No acute cardiopulmonary findings. 2010 [employer]- All Rights Reserved Guidance Fluoroscopy 05/12/17 00:00 IMPRESSION: SUCCESSFUL PLACEMENT OF A 5 FR DUAL LUMEN 35 CM PICC IN THE RIGHT BASILIC VEIN. Interventional Vascular Procedure 05/12/17 00:00 IMPRESSION: SUCCESSFUL PLACEMENT OF A 5 FR DUAL LUMEN 35 CM PICC IN THE RIGHT BASILIC VEIN. PICC Line Insertion 05/12/17 00:00 IMPRESSION: SUCCESSFUL PLACEMENT OF A 5 FR DUAL LUMEN 35 CM PICC IN THE RIGHT BASILIC VEIN. Knee X-Ray 05/26/17 00:00 IMPRESSION: Large suprapatellar knee joint effusion with air bubbles from septic joint. Soft tissue air bubbles in the medial right upper calf worrisome for infection with gas-forming organism. Lower Extremity MRI 05/26/17 00:00 IMPRESSION: No osteomyelitis. Septic joint containing fluid and gas and there is extensive fluid in the popliteal fossa communicating with the joint with both fluid and gas. Measures 13 cm. Mild edema in adjacent muscles. Tibia/Fibula X-Ray 05/26/17 00:00 IMPRESSION: LARGE JOINT EFFUSION. MULTIPLE BUBBLES OF GAS IN THE SOFT TISSUES OF THE PROXIMAL CALF. Assessment & Plan - Diagnosis (1) Mild protein-calorie malnutrition Is this a current diagnosis for this admission?: Yes Plan: We will encourage nutritional intake. (2) Diabetes mellitus Is this a current diagnosis for this admission?: Yes Plan: Metformin (3) Endocarditis of tricuspid valve Is this a current diagnosis for this admission?: Yes Plan: Secondary to MRSA: Patient will complete antibiotics on June 28. Will repeat Blood cultures. (4) Hyponatremia Is this a current diagnosis for this admission?: Yes Plan: Resolved. (5) Iron deficiency anemia Is this a current diagnosis for this admission?: Yes Plan: We will need to be monitored once patient is discharged feel that is most likely secondary to nutritional status and acute illness. (6) Septic arthritis of knee, right Qualifiers: Septic arthritis organism: due to unspecified organism Qualified Code(s): M00.9 - Pyogenic arthritis, unspecified Is this a current diagnosis for this admission?: Yes Plan: Continue current treatment. (7) Hernia Is this a current diagnosis for this admission?: Yes Plan: supportive care. - Time Time Spent with patient: 15-24 minutes
[2017-06-26] MEDS: IBUPROFEN 600 MG TABLET PO SCH ×4 (00:32→19:40)
[2017-06-26] MEDS: OXYCODONE-ACETAMINOPHEN 5-325 MG TABLET PO PRN ×4 (03:33→19:39)
[2017-06-26] MEDS: CEFAZOLIN 2 GM/D5W RTU 2 GM/50 ML RTUPB IV SCH ×3 (06:02→22:15)
[2017-06-26] MEDS: POLYETHYLENE GLYCOL 3350 POWDER 17 GM/1 PACKET PO SCH (08:58)
[2017-06-26] MEDS: METFORMIN HCL 500 MG TABLET PO SCH ×2 (08:58→17:18)
[2017-06-26] MEDS: NORMAL SALINE 10 ML SDV (SCHEDULED) IV SCH ×2 (08:58→22:15)
--- NOTE | 2017-06-26 10:35 | PDOC PROGRESS REPORT ---
Subjective Progress Note for:: 06/26/17 Subjective:: Pt states that he is having back pain. Nursing states that pain medication is helping his pain. Reason For Visit: SEPSIS ENDOCARDITIS, POLYARTHRITIS, IV DRUG ABUSE Physical Exam Vital Signs: Temp Pulse Resp BP Pulse Ox 98.2 F 94 17 140/79 H 100 06/26/17 00:15 06/26/17 00:15 06/26/17 00:15 06/26/17 00:15 06/26/17 00:15 Pulse Oximeter Continuous Start: 05/05/17 11: 26 Freq: RTQ4 Status: Complete Document 05/11/17 08:00 JDR (Rec: 05/11/17 11:14 JDR [email or web address]) Pulse Oximetry Assessment Oxygen Saturation (92-100) 98 Oxygen Flow Rate (L/min) 2 Oxygen Delivery Method Nasal Cannula Equipment Usage Equipment in Use Continuous SpO2 Machine # 8 Intake & Output 06/25/17 06/26/17 06/27/17 06:59 06:59 06:59 Intake Total 1650 2430 Balance 1650 2430 General appearance: PRESENT: no acute distress, thin, well-developed Head exam: PRESENT: atraumatic, normocephalic Eye exam: PRESENT: conjunctiva pink, EOMI. ABSENT: scleral icterus Ear exam: PRESENT: normal external ear exam Mouth exam: PRESENT: moist, tongue midline Neck exam: ABSENT: carotid bruit, JVD, lymphadenopathy, thyromegaly Respiratory exam: PRESENT: clear to auscultation antonio. ABSENT: rales, rhonchi, wheezes Cardiovascular exam: PRESENT: RRR. ABSENT: diastolic murmur, rubs, systolic murmur Pulses: PRESENT: normal dorsalis pedis pul Vascular exam: PRESENT: normal capillary refill GI/Abdominal exam: PRESENT: normal bowel sounds, soft. ABSENT: distended, guarding, mass, organolmegaly, rebound, tenderness Rectal exam: PRESENT: deferred Extremities exam: PRESENT: other - +right knee Musculoskeletal exam: PRESENT: other - + right knee swelling Neurological exam: PRESENT: alert, awake, oriented to person, oriented to place , oriented to time, oriented to situation, CN II-XII grossly intact. ABSENT: motor sensory deficit Psychiatric exam: PRESENT: appropriate affect, normal mood. ABSENT: homicidal ideation, suicidal ideation Skin exam: PRESENT: dry, intact, warm. ABSENT: cyanosis, rash Results Laboratory Results: 06/25/17 05:08 06/25/17 05:08 Impressions: Head CT 05/05/17 00:00 IMPRESSION: Limited negative study EVIDENCE OF ACUTE STROKE: NO. Lumbar Spine X-Ray 05/05/17 00:00 IMPRESSION: No acute fracture or malalignment. Multilevel disc space loss of height with anterior osteophyte formation Hip X-Ray 05/05/17 03:18 IMPRESSION: No acute findings. 2010 [employer]- All Rights Reserved Wrist X-Ray 05/05/17 03:18 IMPRESSION: No acute findings. Limited scaphoid views. 2010 [employer]- All Rights Reserved Chest X-Ray 05/05/17 03:23 IMPRESSION: No acute cardiopulmonary findings. 2010 [employer]- All Rights Reserved Guidance Fluoroscopy 05/12/17 00:00 IMPRESSION: SUCCESSFUL PLACEMENT OF A 5 FR DUAL LUMEN 35 CM PICC IN THE RIGHT BASILIC VEIN. Interventional Vascular Procedure 05/12/17 00:00 IMPRESSION: SUCCESSFUL PLACEMENT OF A 5 FR DUAL LUMEN 35 CM PICC IN THE RIGHT BASILIC VEIN. PICC Line Insertion 05/12/17 00:00 IMPRESSION: SUCCESSFUL PLACEMENT OF A 5 FR DUAL LUMEN 35 CM PICC IN THE RIGHT BASILIC VEIN. Knee X-Ray 05/26/17 00:00 IMPRESSION: Large suprapatellar knee joint effusion with air bubbles from septic joint. Soft tissue air bubbles in the medial right upper calf worrisome for infection with gas-forming organism. Lower Extremity MRI 05/26/17 00:00 IMPRESSION: No osteomyelitis. Septic joint containing fluid and gas and there is extensive fluid in the popliteal fossa communicating with the joint with both fluid and gas. Measures 13 cm. Mild edema in adjacent muscles. Tibia/Fibula X-Ray 05/26/17 00:00 IMPRESSION: LARGE JOINT EFFUSION. MULTIPLE BUBBLES OF GAS IN THE SOFT TISSUES OF THE PROXIMAL CALF. Assessment & Plan - Diagnosis (1) Mild protein-calorie malnutrition Is this a current diagnosis for this admission?: Yes Plan: We will encourage nutritional intake. (2) Diabetes mellitus Is this a current diagnosis for this admission?: Yes Plan: Metformin (3) Endocarditis of tricuspid valve Is this a current diagnosis for this admission?: Yes Plan: Secondary to MSSA: Patient will complete antibiotics on June 28. Blood cultures no growth 24 hours. (4) Hyponatremia Is this a current diagnosis for this admission?: Yes Plan: Resolved. (5) Iron deficiency anemia Is this a current diagnosis for this admission?: Yes Plan: We will need to be monitored once patient is discharged feel that is most likely secondary to nutritional status and acute illness. (6) Septic arthritis of knee, right Qualifiers: Septic arthritis organism: due to unspecified organism Qualified Code(s): M00.9 - Pyogenic arthritis, unspecified Is this a current diagnosis for this admission?: Yes Plan: Continue current treatment. (7) Hernia Is this a current diagnosis for this admission?: Yes Plan: supportive care. - Time Time Spent with patient: 15-24 minutes
[2017-06-26] MEDS ORDERED: GABAPENTIN 300 MG CAPSULE PO ONE (23:29)
[2017-06-26] MEDS ORDERED: KETOROLAC TROMETHAMINE INJ/PF 30 MG/1 ML SDV IV ONE (23:29)
[2017-06-26] MEDS ORDERED: BACLOFEN 10 MG TABLET PO ONE (23:30)
[2017-06-27] MEDS: OXYCODONE-ACETAMINOPHEN 5-325 MG TABLET PO PRN ×5 (00:45→21:15)
[2017-06-27] MEDS: NORMAL SALINE 10 ML SDV (AFTER EACH USE) IV PRN ×2 (00:46→06:56)
[2017-06-27] MEDS: IBUPROFEN 600 MG TABLET PO SCH ×4 (03:14→20:02)
[2017-06-27] MEDS: CEFAZOLIN 2 GM/D5W RTU 2 GM/50 ML RTUPB IV SCH ×3 (05:45→21:15)
[2017-06-27] MEDS: GABAPENTIN 300 MG CAPSULE PO SCH ×2 (09:01→21:15)
[2017-06-27] MEDS: METFORMIN HCL 500 MG TABLET PO SCH ×2 (09:02→15:16)
[2017-06-27] MEDS: NORMAL SALINE 10 ML SDV (SCHEDULED) IV SCH ×2 (09:03→21:15)
[2017-06-27] MEDS: POLYETHYLENE GLYCOL 3350 POWDER 17 GM/1 PACKET PO SCH (09:03)
[2017-06-27] MEDS ORDERED: LIDOCAINE 5% (700 MG) TRANSDERMAL ADH..PATCH TP ONE (11:00)
--- NOTE | 2017-06-27 14:14 | PDOC PROGRESS REPORT ---
Subjective Progress Note for:: 06/27/17 Subjective:: The patient is a 46-year-old male with past medical history significant for IV drug abuse and tobacco dependency who was admitted on 05/05/17 for sepsis secondary to MSSA endocarditis. He is currently receiving cefazolin with antibiotic completion date on June 28. Pt is seen on morning rounds; he is found sitting up to the edge of the bed on room air. He complains of bilateral hip and lower back pain today. He states that the pain medications do not last long enough and are not strong enough to control his pain. He reports that he was previously on oxycodone 10 mg q 6 hrs through a pain management clinic prior to his admission. He asks to have his pain medications adjusted again today. Otherwise, he has no new questions or concerns. Reason For Visit: SEPSIS ENDOCARDITIS, POLYARTHRITIS, IV DRUG ABUSE Physical Exam Vital Signs: Temp Pulse Resp BP Pulse Ox 98.4 F 106 H 17 111/62 100 06/27/17 12:09 06/27/17 12:09 06/27/17 12:09 06/27/17 12:09 06/27/17 12:09 Pulse Oximeter Continuous Start: 05/05/17 11: 26 Freq: RTQ4 Status: Complete Document 05/11/17 08:00 JDR (Rec: 05/11/17 11:14 JDR [email or web address]) Pulse Oximetry Assessment Oxygen Saturation (92-100) 98 Oxygen Flow Rate (L/min) 2 Oxygen Delivery Method Nasal Cannula Equipment Usage Equipment in Use Continuous SpO2 Machine # 8 Intake & Output 06/26/17 06/27/17 06/28/17 06:59 06:59 06:59 Intake Total 2430 1172 Output Total 725 Balance 2430 447 Weight 69.2 kg General appearance: PRESENT: no acute distress, well-developed, well-nourished Head exam: PRESENT: atraumatic, normocephalic Eye exam: PRESENT: conjunctiva pink, EOMI, PERRLA. ABSENT: scleral icterus Ear exam: PRESENT: normal external ear exam Mouth exam: PRESENT: moist, tongue midline Neck exam: ABSENT: carotid bruit, JVD, lymphadenopathy, thyromegaly Respiratory exam: PRESENT: clear to auscultation antonio, symmetrical, unlabored. ABSENT: rales, rhonchi, wheezes Cardiovascular exam: PRESENT: RRR, +S1, +S2. ABSENT: diastolic murmur, rubs, systolic murmur Pulses: PRESENT: normal dorsalis pedis pul Vascular exam: PRESENT: normal capillary refill GI/Abdominal exam: PRESENT: normal bowel sounds, soft. ABSENT: distended, guarding, mass, organolmegaly, rebound, tenderness Rectal exam: PRESENT: deferred Extremities exam: PRESENT: full ROM. ABSENT: calf tenderness, clubbing, pedal edema Neurological exam: PRESENT: alert, awake, oriented to person, oriented to place , oriented to time, oriented to situation, CN II-XII grossly intact. ABSENT: motor sensory deficit Psychiatric exam: PRESENT: agitated, normal mood. ABSENT: homicidal ideation, suicidal ideation Skin exam: PRESENT: dry, intact, warm. ABSENT: cyanosis, rash Results Laboratory Results: 06/25/17 05:08 06/25/17 05:08 05/27/17 00:13 Knee - Right Fungal Smear - Final 05/27/17 00:13 Knee - Right Fungal Smear - Final 05/27/17 00:13 Knee - Right Fungal Culture - Final 05/27/17 00:13 Knee - Right Fungal Culture - Final 05/27/17 00:32 Knee - Right Fungal Smear - Final 05/27/17 00:32 Knee - Right Fungal Smear - Final 05/27/17 00:32 Knee - Right Fungal Culture - Final 05/27/17 00:32 Knee - Right Fungal Culture - Final Impressions: Head CT 05/05/17 00:00 IMPRESSION: Limited negative study EVIDENCE OF ACUTE STROKE: NO. Lumbar Spine X-Ray 05/05/17 00:00 IMPRESSION: No acute fracture or malalignment. Multilevel disc space loss of height with anterior osteophyte formation Hip X-Ray 05/05/17 03:18 IMPRESSION: No acute findings. 2010 [employer]- All Rights Reserved Wrist X-Ray 05/05/17 03:18 IMPRESSION: No acute findings. Limited scaphoid views. 2010 [employer]- All Rights Reserved Chest X-Ray 05/05/17 03:23 IMPRESSION: No acute cardiopulmonary findings. 2010 [employer]- All Rights Reserved Guidance Fluoroscopy 05/12/17 00:00 IMPRESSION: SUCCESSFUL PLACEMENT OF A 5 FR DUAL LUMEN 35 CM PICC IN THE RIGHT BASILIC VEIN. Interventional Vascular Procedure 05/12/17 00:00 IMPRESSION: SUCCESSFUL PLACEMENT OF A 5 FR DUAL LUMEN 35 CM PICC IN THE RIGHT BASILIC VEIN. PICC Line Insertion 05/12/17 00:00 IMPRESSION: SUCCESSFUL PLACEMENT OF A 5 FR DUAL LUMEN 35 CM PICC IN THE RIGHT BASILIC VEIN. Knee X-Ray 05/26/17 00:00 IMPRESSION: Large suprapatellar knee joint effusion with air bubbles from septic joint. Soft tissue air bubbles in the medial right upper calf worrisome for infection with gas-forming organism. Lower Extremity MRI 05/26/17 00:00 IMPRESSION: No osteomyelitis. Septic joint containing fluid and gas and there is extensive fluid in the popliteal fossa communicating with the joint with both fluid and gas. Measures 13 cm. Mild edema in adjacent muscles. Tibia/Fibula X-Ray 05/26/17 00:00 IMPRESSION: LARGE JOINT EFFUSION. MULTIPLE BUBBLES OF GAS IN THE SOFT TISSUES OF THE PROXIMAL CALF. Assessment & Plan - Diagnosis (1) Bacteremia Is this a current diagnosis for this admission?: Yes Plan: Blood culture (06/24/17): No growth at 48 hours. PT freely admits to recent and ongoing IV drug use. DOMINGO identified tricuspid valve endocarditis. Continue cefazolin with completion date of June 28. (2) Endocarditis of tricuspid valve Is this a current diagnosis for this admission?: Yes Plan: Confirmed by DOMINGO. Blood cultures revealed MSSA. Plan as above. (3) Myalgia Is this a current diagnosis for this admission?: No Plan: Resolved. Patient with complaint of polyarticular arthritic pains; likely chronic in nature. Imaging of the lumbar spine, lateral hips and right wrist were obtained: No acute findings. Urine for gonorrhea to evaluate for gonococcal arthritis was negative. Septic arthritis has been ruled out by orthopedics. Pain is managed with ibuprofen, gabapentin, lidocaine patches, and Percocet as needed. We will avoid increasing narcotic medications given the patient's recent abuse of illicit drugs. (4) Leukocytosis Qualifiers: Leukocytosis type: leukemoid reaction Qualified Code(s): D72.823 - Leukemoid reaction Is this a current diagnosis for this admission?: Yes Plan: Leukocytosis is trending down; secondary to bacteremia and endocarditis. We will continue antibiotic therapy as above. (5) Polysubstance abuse Is this a current diagnosis for this admission?: Yes Plan: The patient admits to IV methamphetamine and heroin use. He has detoxed since this admission. He is provided NSAIDs, gabapentin, lidocaine patches,and prn oxycodone for pain control. The patient states that he was seen at a pain management clinic and prescribed oxycodone 10 mg 4 times daily as needed for his pain immediately prior to his admission. Review of the [place] controlled substance database reveals that his last narcotic prescription was in fact prescribed in December 2015 by our emergency department and it does not appear that he regularly received chronic pain medications through a pain management clinic. Therefore, no additional narcotic pain medications will be ordered at this time as I have significant concerns that the patient will relapse upon discharge and do not wish to worsen a potential withdrawal picture. (6) Dehydration Is this a current diagnosis for this admission?: Yes Plan: Resolved. (7) Sepsis Qualifiers: Sepsis type: methicillin susceptible Staphylococcus aureus Qualified Code(s ): A41.01 - Sepsis due to Methicillin susceptible Staphylococcus aureus Is this a current diagnosis for this admission?: Yes Plan: Resolved; secondary to #1 and 2. This was present on admission. (8) Hyponatremia Is this a current diagnosis for this admission?: Yes Plan: Resolved. (9) Acute metabolic encephalopathy Is this a current diagnosis for this admission?: Yes Plan: Resolved (10) Diabetes mellitus Is this a current diagnosis for this admission?: Yes Plan: Metformin. (11) Mild protein-calorie malnutrition Is this a current diagnosis for this admission?: Yes Plan: Will encourage nutritional intake. (12) Iron deficiency anemia Is this a current diagnosis for this admission?: Yes Plan: Likely secondary to poor nutritional status and acute illness. (13) Septic arthritis of knee, right Qualifiers: Septic arthritis organism: due to unspecified organism Qualified Code(s): M00.9 - Pyogenic arthritis, unspecified Is this a current diagnosis for this admission?: Yes Plan: Continue antibiotics as above. (14) Hernia Is this a current diagnosis for this admission?: Yes Plan: Supportive care. - Time Time Spent with patient: 25-34 minutes Medications reviewed and adjusted accordingly: Yes Anticipated discharge: Home Within: within 24 hours - Inpatient Certification Based on my medical assessment, after consideration of the patient's comorbidities, presenting symptoms, or acuity I expect that the services needed warrant INPATIENT care.: Yes I certify that my determination is in accordance with my understanding of Medicare's requirements for reasonable and necessary INPATIENT services [42 CFR 412.3e].: Yes Medical Necessity: Need for IV Antibiotics
--- NOTE | 2017-06-27 18:04 | PDOC PROGRESS REPORT ---
Subjective Subjective:: Patient lying in bed comfortably. Denies fever chills or sweats. He states his range of motion is improving. Still has some residual pain and swelling. Major complaint today is his chronic low back pain. Reason For Visit: SEPSIS ENDOCARDITIS, POLYARTHRITIS, IV DRUG ABUSE Physical Exam Vital Signs: Temp Pulse Resp BP Pulse Ox 98.8 F 98 17 123/63 100 06/27/17 15:18 06/27/17 15:18 06/27/17 15:18 06/27/17 15:18 06/27/17 15:18 Pulse Oximeter Continuous Start: 05/05/17 11: 26 Freq: RTQ4 Status: Complete Document 05/11/17 08:00 JDR (Rec: 05/11/17 11:14 JDR [email or web address]) Pulse Oximetry Assessment Oxygen Saturation (92-100) 98 Oxygen Flow Rate (L/min) 2 Oxygen Delivery Method Nasal Cannula Equipment Usage Equipment in Use Continuous SpO2 Machine # 8 Intake & Output 06/26/17 06/27/17 06/28/17 06:59 06:59 06:59 Intake Total 2430 1172 970 Output Total 725 Balance 2430 447 970 Weight 69.2 kg Musculoskeletal exam: PRESENT: other - Right knee: Minimal residual effusion. No increased warmth or erythema. Pain with terminal flexion extension. Knee range of motion 5-85. Patient ambulates with antalgic gait. Results Laboratory Results: 06/25/17 05:08 06/25/17 05:08 05/27/17 00:13 Knee - Right Fungal Smear - Final 05/27/17 00:13 Knee - Right Fungal Smear - Final 05/27/17 00:13 Knee - Right Fungal Culture - Final 05/27/17 00:13 Knee - Right Fungal Culture - Final 05/27/17 00:32 Knee - Right Fungal Smear - Final 05/27/17 00:32 Knee - Right Fungal Smear - Final 05/27/17 00:32 Knee - Right Fungal Culture - Final 05/27/17 00:32 Knee - Right Fungal Culture - Final Impressions: Head CT 05/05/17 00:00 IMPRESSION: Limited negative study EVIDENCE OF ACUTE STROKE: NO. Lumbar Spine X-Ray 05/05/17 00:00 IMPRESSION: No acute fracture or malalignment. Multilevel disc space loss of height with anterior osteophyte formation Hip X-Ray 05/05/17 03:18 IMPRESSION: No acute findings. 2010 [employer]- All Rights Reserved Wrist X-Ray 05/05/17 03:18 IMPRESSION: No acute findings. Limited scaphoid views. 2010 [employer]- All Rights Reserved Chest X-Ray 05/05/17 03:23 IMPRESSION: No acute cardiopulmonary findings. 2010 [employer]- All Rights Reserved Guidance Fluoroscopy 05/12/17 00:00 IMPRESSION: SUCCESSFUL PLACEMENT OF A 5 FR DUAL LUMEN 35 CM PICC IN THE RIGHT BASILIC VEIN. Interventional Vascular Procedure 05/12/17 00:00 IMPRESSION: SUCCESSFUL PLACEMENT OF A 5 FR DUAL LUMEN 35 CM PICC IN THE RIGHT BASILIC VEIN. PICC Line Insertion 05/12/17 00:00 IMPRESSION: SUCCESSFUL PLACEMENT OF A 5 FR DUAL LUMEN 35 CM PICC IN THE RIGHT BASILIC VEIN. Knee X-Ray 05/26/17 00:00 IMPRESSION: Large suprapatellar knee joint effusion with air bubbles from septic joint. Soft tissue air bubbles in the medial right upper calf worrisome for infection with gas-forming organism. Lower Extremity MRI 05/26/17 00:00 IMPRESSION: No osteomyelitis. Septic joint containing fluid and gas and there is extensive fluid in the popliteal fossa communicating with the joint with both fluid and gas. Measures 13 cm. Mild edema in adjacent muscles. Tibia/Fibula X-Ray 05/26/17 00:00 IMPRESSION: LARGE JOINT EFFUSION. MULTIPLE BUBBLES OF GAS IN THE SOFT TISSUES OF THE PROXIMAL CALF. Assessment & Plan - Diagnosis (1) Myalgia Is this a current diagnosis for this admission?: No (2) Septic arthritis of knee, right Qualifiers: Septic arthritis organism: due to unspecified organism Qualified Code(s): M00.9 - Pyogenic arthritis, unspecified Is this a current diagnosis for this admission?: Yes Plan: Status post arthroscopic I&D, I&D right leg 05/27/17 #1 continue IV abx as per hospitalist recommendation #2 pain control. #3 physical therapy WBAT right lower extremity range of motion exercises. #4 Currently no sign or symptoms of recurrent infection. Patient has been treated adequately for septic arthritis at this point do not feel he requires further antibiotics for treatment. Patient may follow-up as needed.
[2017-06-28] MEDS: IBUPROFEN 600 MG TABLET PO SCH ×3 (01:28→12:07)
[2017-06-28] MEDS: OXYCODONE-ACETAMINOPHEN 5-325 MG TABLET PO PRN ×2 (05:41→09:43)
[2017-06-28] MEDS: CEFAZOLIN 2 GM/D5W RTU 2 GM/50 ML RTUPB IV SCH (05:41)
[2017-06-28] MEDS: NORMAL SALINE 10 ML SDV (SCHEDULED) IV SCH (09:42)
[2017-06-28] MEDS: GABAPENTIN 300 MG CAPSULE PO SCH (09:43)
[2017-06-28] MEDS: METFORMIN HCL 500 MG TABLET PO SCH ×2 (09:43→17:30)
[2017-06-28] MEDS ORDERED: LIDOCAINE 5% (700 MG) TRANSDERMAL ADH..PATCH TP SCH (10:00)
--- NOTE | 2017-06-28 13:49 | PDOC DISCHARGE SUMMARY ---
General - Admit/Disc Date/PCP Admission Date/Primary Care Provider: 05/05/17 05:33 Discharge Date: 06/28/17 - Discharge Diagnosis (1) Bacteremia Is this a current diagnosis for this admission?: Yes (2) Endocarditis of tricuspid valve Is this a current diagnosis for this admission?: Yes (3) Myalgia Is this a current diagnosis for this admission?: No (4) Leukocytosis Is this a current diagnosis for this admission?: Yes (5) Polysubstance abuse Is this a current diagnosis for this admission?: Yes (6) Dehydration Is this a current diagnosis for this admission?: Yes (7) Sepsis Is this a current diagnosis for this admission?: Yes (8) Hyponatremia Is this a current diagnosis for this admission?: Yes (9) Acute metabolic encephalopathy Is this a current diagnosis for this admission?: Yes (10) Diabetes mellitus Is this a current diagnosis for this admission?: Yes (11) Mild protein-calorie malnutrition Is this a current diagnosis for this admission?: Yes (12) Iron deficiency anemia Is this a current diagnosis for this admission?: Yes (13) Septic arthritis of knee, right Is this a current diagnosis for this admission?: Yes (14) Hernia Is this a current diagnosis for this admission?: Yes - Additional Information Resuscitation Status: Full Code Discharge Diet: Diabetic Discharge Activity: Activity As Tolerated, Balance Activity w/Rest, Walk Frequently Prescriptions: Gabapentin [Neurontin 300 mg Capsule] 300 mg PO Q12 #60 capsule Lidocaine [Lidoderm 5% (700 mg) Transdermal Patch] 2 patch TP DAILY #60 adh..patch Metformin HCl [Glucophage 500 mg Tablet] 500 mg PO BIDACBS #60 tablet Oxycodone HCl/Acetaminophen [Percocet 5-325 mg Tablet] 1 tab PO Q8HP PRN #9 tablet PRN Reason: Home Medications: Gabapentin [Neurontin 300 mg Capsule] 300 mg PO Q12 #60 capsule 06/28/17 Ibuprofen [Motrin 600 mg Tablet] 600 mg PO Q6H tablet 06/28/17 Lidocaine [Lidoderm 5% (700 mg) Transdermal Patch] 2 patch TP DAILY #60 adh..patch 06/28/17 Metformin HCl [Glucophage 500 mg Tablet] 500 mg PO BIDACBS #60 tablet 06/28/17 Oxycodone HCl/Acetaminophen [Percocet 5-325 mg Tablet] 1 tab PO Q8HP PRN #9 tablet 06/28/17 History of Present Illness History of Present Illness: Per H&P by Dr. Saini: SUSHIL JARA is a 46 year old male with a history of tobacco, IV heroin and methamphetamine abuse. He he presents with 2 days of diffuse joint pain and fever and exceptional pain about the right wrist at the site of IV drug use. In the emergency department he appears toxic has fever, tachycardia and leukocytosis. He is started on empiric antibiotics and referred to the hospitalist for admission. The patient is a poor historian and appears to be in opiate withdrawal he denies previous episodes and denies recent antibiotic use. Hospital Course Hospital Course: The patient was admitted on 05/05/17 MSSA bacteremia determined to be related to tricuspid valve endocarditis secondary to IV drug abuse. Formerly [facility], [facility] infectious disease was consulted via telephone and recommended 6 weeks of therapy with IV daptomycin which was completed today. He did develop septic arthritis of the right knee and underwent arthroscopic I&D on 05/27/17. Cultures of the right knee fluid were negative. The patient's primary complaint throughout his admission is related to chronic arthritic pain. The patient complains of lower back, bilateral hip and knee pain. Lumbar x-ray does reveal disc space height loss. Images of the chest, right wrist, bilateral hips were negative. His pain was managed with Tylenol, ibuprofen, lidocaine patches, gabapentin, and oxycodone. The patient is discharged to self care with prescriptions for gabapentin, ibuprofen, Lidoderm patches, metformin, and oxycodone 5 mg tablets. He is advised to abstain from IV drug use. He is encouraged to establish with a primary care provider to follow-up within 1-2 weeks and is provided information with regard to low cost and free area clinics. Physical Exam Vital Signs: Temp Pulse Resp BP Pulse Ox 98.5 F 105 H 18 116/66 98 06/28/17 11:27 06/28/17 11:27 06/28/17 11:27 06/28/17 11:27 06/28/17 11:27 Pulse Oximeter Continuous Start: 05/05/17 11: 26 Freq: RTQ4 Status: Complete Document 05/11/17 08:00 JDR (Rec: 05/11/17 11:14 JDR [id number]) Pulse Oximetry Assessment Oxygen Saturation (92-100) 98 Oxygen Flow Rate (L/min) 2 Oxygen Delivery Method Nasal Cannula Equipment Usage Equipment in Use Continuous SpO2 Machine # 8 Intake & Output 06/27/17 06/28/17 06/29/17 06:59 06:59 06:59 Intake Total 1172 1820 Output Total 725 850 Balance 447 970 Weight 69.2 kg General appearance: PRESENT: no acute distress, thin, well-developed, well- nourished Head exam: PRESENT: atraumatic, normocephalic Eye exam: PRESENT: conjunctiva pink, EOMI, PERRLA. ABSENT: scleral icterus Ear exam: PRESENT: normal external ear exam Mouth exam: PRESENT: moist, tongue midline Neck exam: ABSENT: carotid bruit, JVD, lymphadenopathy, thyromegaly Respiratory exam: PRESENT: clear to auscultation antonio. ABSENT: rales, rhonchi, wheezes Cardiovascular exam: PRESENT: RRR. ABSENT: diastolic murmur, rubs, systolic murmur Pulses: PRESENT: normal dorsalis pedis pul Vascular exam: PRESENT: normal capillary refill GI/Abdominal exam: PRESENT: normal bowel sounds, soft. ABSENT: distended, guarding, mass, organolmegaly, rebound, tenderness Rectal exam: PRESENT: deferred Extremities exam: PRESENT: full ROM. ABSENT: calf tenderness, clubbing, pedal edema Neurological exam: PRESENT: alert, awake, oriented to person, oriented to place , oriented to time, oriented to situation, CN II-XII grossly intact. ABSENT: motor sensory deficit Psychiatric exam: PRESENT: appropriate affect, normal mood. ABSENT: homicidal ideation, suicidal ideation Skin exam: PRESENT: dry, intact, warm. ABSENT: cyanosis, rash Results Laboratory Results: 06/25/17 05:08 06/25/17 05:08 Impressions: Head CT 05/05/17 00:00 IMPRESSION: Limited negative study EVIDENCE OF ACUTE STROKE: NO. Lumbar Spine X-Ray 05/05/17 00:00 IMPRESSION: No acute fracture or malalignment. Multilevel disc space loss of height with anterior osteophyte formation Hip X-Ray 05/05/17 03:18 IMPRESSION: No acute findings. 2010 [employer]- All Rights Reserved Wrist X-Ray 05/05/17 03:18 IMPRESSION: No acute findings. Limited scaphoid views. 2010 [employer]- All Rights Reserved Chest X-Ray 05/05/17 03:23 IMPRESSION: No acute cardiopulmonary findings. 2010 [facility]- All Rights Reserved Guidance Fluoroscopy 05/12/17 00:00 IMPRESSION: SUCCESSFUL PLACEMENT OF A 5 FR DUAL LUMEN 35 CM PICC IN THE RIGHT BASILIC VEIN. Interventional Vascular Procedure 05/12/17 00:00 IMPRESSION: SUCCESSFUL PLACEMENT OF A 5 FR DUAL LUMEN 35 CM PICC IN THE RIGHT BASILIC VEIN. PICC Line Insertion 05/12/17 00:00 IMPRESSION: SUCCESSFUL PLACEMENT OF A 5 FR DUAL LUMEN 35 CM PICC IN THE RIGHT BASILIC VEIN. Knee X-Ray 05/26/17 00:00 IMPRESSION: Large suprapatellar knee joint effusion with air bubbles from septic joint. Soft tissue air bubbles in the medial right upper calf worrisome for infection with gas-forming organism. Lower Extremity MRI 05/26/17 00:00 IMPRESSION: No osteomyelitis. Septic joint containing fluid and gas and there is extensive fluid in the popliteal fossa communicating with the joint with both fluid and gas. Measures 13 cm. Mild edema in adjacent muscles. Tibia/Fibula X-Ray 05/26/17 00:00 IMPRESSION: LARGE JOINT EFFUSION. MULTIPLE BUBBLES OF GAS IN THE SOFT TISSUES OF THE PROXIMAL CALF. Qualifiers PATEINT BEING DISCHARGED WITH ANY OF THE FOLLOWING DIAGNOSIS?: No Plan Time Spent: Less than 30 Minutes
[2017-06-28 14:51] VITALS: BP 126/78
== END 2017-06-28 18:36 | disposition short-term general hospital (02) | DRG 853 ==
LOC: ER 02:46 → EH 05:33 → 4N 07:55 → 3W 08:29 → 4N 05-14 00:28
PROVIDERS: ADMIT Internal Medicine; ATTEND Internal Medicine
PROC: 3E0F73Z Introduction of Anti-inflammatory into Respiratory Tract, Via Natural or Artificial Opening (ICD-10-PCS; 2017-05-05)
PROC: 5A09457 Assistance with Respiratory Ventilation, 24-96 Consecutive Hours, Continuous Positive Airway Pressure (ICD-10-PCS; 2017-05-05)
PROC: 02HV33Z Insertion of Infusion Device into Superior Vena Cava, Percutaneous Approach (ICD-10-PCS; 2017-05-12)
PROC: B5181ZA Fluoroscopy of Superior Vena Cava using Low Osmolar Contrast, Guidance (ICD-10-PCS; 2017-05-12)
PROC: B548ZZA Ultrasonography of Superior Vena Cava, Guidance (ICD-10-PCS; 2017-05-12)
PROC: 0SBC4ZZ Excision of Right Knee Joint, Percutaneous Endoscopic Approach (ICD-10-PCS; principal; 2017-05-27)
PROC: 0KBS0ZZ Excision of Right Lower Leg Muscle, Open Approach (ICD-10-PCS; 2017-05-27)
PROC: 30233N1 Transfusion of Nonautologous Red Blood Cells into Peripheral Vein, Percutaneous Approach (ICD-10-PCS; 2017-06-08)
DX: A41.01 Sepsis due to Methicillin susceptible Staphylococcus aureus (principal); I33.0 Acute and subacute infective endocarditis; G92 Toxic encephalopathy; E87.1 Hypo-osmolality and hyponatremia; E44.1 Mild protein-calorie malnutrition; E22.2 Syndrome of inappropriate secretion of antidiuretic hormone; M00.9 Pyogenic arthritis, unspecified; I07.9 Rheumatic tricuspid valve disease, unspecified; M79.1 Myalgia; F19.10 Other psychoactive substance abuse, uncomplicated; E86.0 Dehydration; Z68.22 Body mass index [BMI] 22.0-22.9, adult; D50.8 Other iron deficiency anemias; M17.11 Unilateral primary osteoarthritis, right knee; K46.9 Unspecified abdominal hernia without obstruction or gangrene; M54.5 Low back pain; M16.0 Bilateral primary osteoarthritis of hip; F17.210 Nicotine dependence, cigarettes, uncomplicated; D72.823 Leukemoid reaction; F15.10 Other stimulant abuse, uncomplicated; E11.618 Type 2 diabetes mellitus with other diabetic arthropathy; K59.03 Drug induced constipation; T40.2X5A Adverse effect of other opioids, initial encounter; Z79.899 Other long term (current) drug therapy; Z91.81 History of falling; Z88.0 Allergy status to penicillin; Z82.61 Family history of arthritis
CPT/HCPCS: 01400; 36415; 36430; 36569; 70450; 71020; 72110; 73522; 76937; 77001; 80048; 80053; 80202; 80307; 81001; 82565; 82607; 82728; 82746; 82803; 82962; 83036; 83540; 83550; 83605; 83735; 84466; 84550; 85025; 85027; 85045; 85652; 86140; 86850; 86900; 86901; 86920; 87015; 87040; 87070; 87075; 87077; 87086; 87088; 87101; 87116; 87186; 87205; 87206; 87491; 87591; 89050; 89060; 93306; 94640; 94660; 94762; 96361; 96374; 99291; J0131; J0330; J0690; J0696; J1170; J1642; J1644; J1815; J1885; J2185; J2250; J2270; J2310; J2370; J2405; J2704; J2997; J3010; J3370; J3490; J7030; J7060; J7620; L0120; P9016

== ENCOUNTER 2017-07-21 08:38 | Emergency (ER) | payer OTHER ==
[2017-07-21] MEDS ORDERED: ASPIRIN 81 MG TABLET, CHEWABLE PO ONE (08:40)
--- NOTE | 2017-07-21 08:53 | EKG REPORT ---
SEVERITY:- OTHERWISE NORMAL ECG - SINUS TACHYCARDIA : Confirmed by: Eliot Welsh 21-Jul-2017 08:52:44
--- NOTE | 2017-07-21 09:22 | RADIOLOGY REPORT (SQ) ---
EXAM DESCRIPTION: CHEST SINGLE VIEW COMPLETED DATE/TIME: 07/21/2017 9:13 am REASON FOR STUDY: cp COMPARISON: 05/05/2017. EXAM PARAMETERS: NUMBER OF VIEWS: One view. TECHNIQUE: Single frontal radiographic view of the chest acquired. RADIATION DOSE: NA LIMITATIONS: None. FINDINGS: LUNGS AND PLEURA: No opacities, masses or pneumothorax. No pleural effusion. MEDIASTINUM AND HILAR STRUCTURES: No masses. Contour normal. HEART AND VASCULAR STRUCTURES: Heart normal in size. Normal vasculature. BONES: No acute findings. HARDWARE: None in the chest. OTHER: No other significant finding. IMPRESSION: NO ACUTE RADIOGRAPHIC FINDING IN THE CHEST. TECHNICAL DOCUMENTATION: JOB ID: [id number] [employer]- All Rights Reserved Reading location - IP/workstation name: [email or web address]
[2017-07-21 10:05] LABS: ABSOLUTE LYMPHOCYTES (AUTO) 3.2 10^3/uL (0.5-4.7); ABSOLUTE MONOCYTES (AUTO) 0.9 10^3/uL (0.1-1.4); ABSOLUTE NEUT (AUTO) 11.9 10^3/uL (1.7-8.2); BASOPHILS % (AUTO) 0.2 % (0-2); EOSINOPHILS % (AUTO) 0.2 % (0-6); HEMATOCRIT 33.2 % (37.9-51.0); HEMOGLOBIN 10.6 g/dL (13.5-17.0); LYMPHOCYTES % (AUTO) 19.7 % (13-45); MEAN CORPUSCULAR HEMOGLOBIN 24.9 pg (27.0-33.4); MEAN CORPUSCULAR HGB CONC 32.1 g/dL (32.0-36.0); MEAN CORPUSCULAR VOLUME 78 fl (80-97); MONOCYTES % (AUTO) 5.4 % (3-13); PLATELET COUNT 532 10^3/uL (150-450); RED BLOOD COUNT 4.26 10^6/uL (4.35-5.55); SEGMENTED NEUTROPHILS % (AUTO) 74.5 % (42-78); TOTAL CELLS COUNTED % (AUTO) 100 %
[2017-07-21 10:27] LABS: ALANINE AMINOTRANSFERASE 39 U/L (21-72); ALBUMIN 3.8 g/dL (3.5-5.0); ALKALINE PHOSPHATASE 100 U/L (38-126); ANION GAP 13 (5-19); ASPARTATE AMINO TRANSFERASE 34 U/L (17-59); BILIRUBIN,DIRECT 0.4 mg/dL (0.0-0.4); BILIRUBIN,TOTAL 0.4 mg/dL (0.2-1.3); BLOOD UREA NITROGEN 13 mg/dL (7-20); CALCIUM 9.4 mg/dL (8.4-10.2); CARBON DIOXIDE 24 mmol/L (22-30); CHLORIDE 98 mmol/L (98-107); CREATINE KINASE 21 U/L (55-170); GLUCOSE 216 mg/dL (75-110); POTASSIUM 4.8 mmol/L (3.6-5.0); SODIUM 134.7 mmol/L (137-145); TOTAL PROTEIN 8.9 g/dL (6.3-8.2)
[2017-07-21 11:24] LABS: CREATINE KINASE MB < 0.22 ng/mL (<4.55); TROPONIN I < 0.012 ng/mL
[2017-07-21] MEDS ORDERED: FENTANYL CITRATE INJ/PF 100 MCG/2 ML AMPUL IV ONE (11:30)
[2017-07-21] MEDS ORDERED: RINGERS SOLUTION,LACTATED 1,000 ML IV ONE (11:30)
--- NOTE | 2017-07-21 11:31 | ER Document Report ---
ED General - General Chief Complaint: Chest Pain > 30 Stated Complaint: CHEST PAIN, DIFFICULTY BREATHING Time Seen by Provider: 07/21/17 10:54 Notes: This is a 47-year-old male to the emergency department complaining of chest pain in center of his chest radiates to his back as well as right knee pain. States that he fell on the right knee. Was hospitalized approximately 6 weeks for bacterial endocarditis. Does admit to previous IV drug abuse but denies anything at this time. States that he has been having fevers again. Generally not feeling well. States that he felt like he was going to pass out and then fell down onto that right knee. Does have a history of injuries to the right knee. Denies any pain in the calf. No shortness of breath. TRAVEL OUTSIDE OF THE [place] IN LAST 30 DAYS: No - HPI Onset: Just prior to arrival - Related Data Allergies/Adverse Reactions: Penicillins Allergy (Verified 07/21/17 08:48) Past Medical History - General Information source: Patient - Social History Smoking Status: Current Every Day Smoker Cigarette use (# per day): Yes Chew tobacco use (# tins/day): No Smoking Education Provided: Yes Frequency of alcohol use: None Drug Abuse: Heroin, Methamphetamine Lives with: Family Family History: Arthritis Patient has suicidal ideation: No Patient has homicidal ideation: No - Past Medical History Cardiac Medical History: Reports: Other - Bacterial endocarditis Pulmonary Medical History: Reports: None Endocrine Medical History: Reports: Hx Diabetes Mellitus Type 2 Renal/ Medical History: Denies: Hx Peritoneal Dialysis Musculoskeltal Medical History: Reports Hx Arthritis Psychiatric Medical History: Denies: Hx Depression Past Surgical History: Reports: Hx Cardiac Catheterization, Hx Orthopedic Surgery - ACL repair, R elbow, L ankle - Immunizations Hx Diphtheria, Pertussis, Tetanus Vaccination: Yes Review of Systems - Review of Systems Constitutional: Chills, Diaphoresis, Fever, Malaise, Weakness EENT: denies: Eye pain, Double vision, Ear pain, Difficulty swallowing, Throat swelling Cardiovascular: Chest pain, Heart racing. denies: Orthopnea, Dyspnea Respiratory: denies: Cough, Hurts to breathe, Short of breath, Wheezing Gastrointestinal: denies: Abdominal pain, Diarrhea, Nausea, Vomiting Genitourinary: denies: Dysuria, Discharge, Flank pain, Hematuria, Incontinence, Urgency Male Genitourinary: denies: Testicular pain, Penile discharge Musculoskeletal: See HPI, Back pain, Joint pain, Joint swelling, Muscle pain Skin: denies: Dryness, Lesions, Rash Hematologic/Lymphatic: denies: Anemia, Blood clots, Easy bleeding, Easy bruising Neurological/Psychological: denies: Confusion, Dementia, Depression, Weakness, Numbness Physical Exam - Vital signs Vitals: Temp Pulse Resp BP Pulse Ox 98.0 F 111 H 20 126/80 H 100 07/21/17 08:52 07/21/17 08:52 07/21/17 08:52 07/21/17 08:52 07/21/17 08:52 Interpretation: Tachycardic - General General appearance: Appears well, Alert - HEENT Head: Normocephalic, Atraumatic Eyes: Normal Pupils: PERRL - Respiratory Respiratory status: No respiratory distress Chest status: Nontender Breath sounds: Normal Chest palpation: Normal - Cardiovascular Rhythm: Regular, Tachycardia Heart sounds: Normal auscultation Murmur: No - Abdominal Inspection: Normal Distension: No distension Bowel sounds: Normal Tenderness: Nontender Organomegaly: No organomegaly - Back Back: Normal, Nontender - Extremities General upper extremity: Normal inspection, Nontender, Normal color, Normal ROM , Normal temperature General lower extremity: Tender - Right knee swollen and tender., Normal color, Normal ROM, Normal temperature, Normal weight bearing. No: Shy's sign - Neurological Neuro grossly intact: Yes Cognition: Normal Orientation: AAOx4 Zafar Coma Scale Eye Opening: Spontaneous Zafar Coma Scale Verbal: Oriented Zafar Coma Scale Motor: Obeys Commands Zafar Coma Scale Total: 15 Speech: Normal Motor strength normal: LUE, RUE, LLE, RLE Sensory: Normal - Psychological Associated symptoms: Normal affect, Normal mood - Skin Skin Temperature: Warm Skin Moisture: Dry Skin Color: Normal Course - Re-evaluation Re-evalutation: 07/21/17 13:20 complaining of chest pain and his heart rate is elevated and he fell down. Will get CT angios of the chest. Will get basic labs. X-ray right knee and reassess. 07/21/17 13:20 CT scan reveals some abnormality approximately T6 which could represent abscess versus discitis versus tumor versus epidural abscess. Will proceed with MRI. Getting blood cultures and lactic acid. 07/21/17 19:50 Chest X-Ray 07/21/17 08:40 IMPRESSION: NO ACUTE RADIOGRAPHIC FINDING IN THE CHEST. Knee X-Ray 07/21/17 11:29 IMPRESSION: DEGENERATIVE JOINT DISEASE. NO ACUTE FINDINGS. Chest/Abdomen CTA 07/21/17 11:30 IMPRESSION: 1. There is no evidence of pulmonary embolus. 2. There are changes in the thoracic spine as described. The findings may suggest discitis. Neoplasm cannot be excluded. Thoracic Spine MRI 07/21/17 12:52 IMPRESSION: Epidural abscess and osteomyelitis -discitis at the T6-7 level. Laboratory 07/21/17 07/21/17 07/21/17 09:40 09:40 09:40 WBC 16.0 H RBC 4.26 L Hgb 10.6 L Hct 33.2 L MCV 78 L MCH 24.9 L MCHC 32.1 RDW 17.0 H Plt Count 532 H Seg Neutrophils % 74.5 Lymphocytes % 19.7 Monocytes % 5.4 Eosinophils % 0.2 Basophils % 0.2 Absolute Neutrophils 11.9 H Absolute Lymphocytes 3.2 Absolute Monocytes 0.9 Absolute Eosinophils 0.0 Absolute Basophils 0.0 Sodium 134.7 L Potassium 4.8 Chloride 98 Carbon Dioxide 24 Anion Gap 13 BUN 13 Creatinine 0.45 L Est GFR ( Amer) > 60 Est GFR (Non-Af Amer) > 60 Glucose 216 H Lactic Acid 2.2 H Calcium 9.4 Total Bilirubin 0.4 Direct Bilirubin 0.4 Neonat Total Bilirubin Not Reportable Neonat Direct Bilirubin Not Reportable Neonat Indirect Bili Not Reportable AST 34 ALT 39 Alkaline Phosphatase 100 Creatine Kinase 21 L CK-MB (CK-2) Troponin I Total Protein 8.9 H Albumin 3.8 07/21/17 07/21/17 07/21/17 10:36 18:13 18:13 WBC RBC Hgb Hct MCV MCH MCHC RDW Plt Count Seg Neutrophils % Lymphocytes % Monocytes % Eosinophils % Basophils % Absolute Neutrophils Absolute Lymphocytes Absolute Monocytes Absolute Eosinophils Absolute Basophils Sodium Potassium Chloride Carbon Dioxide Anion Gap BUN Creatinine Est GFR ( Amer) Est GFR (Non-Af Amer) Glucose Lactic Acid 2.2 H Calcium Total Bilirubin Direct Bilirubin Neonat Total Bilirubin Neonat Direct Bilirubin Neonat Indirect Bili AST ALT Alkaline Phosphatase Creatine Kinase CK-MB (CK-2) < 0.22 Troponin I < 0.012 < 0.012 Total Protein Albumin He has osteomyelitis as described above and the reports at T6 and T7 with an epidural abscess. IV daptomycin and vancomycin ordered. Pain medication, IV fluids given. Consulted [facility] for transfer. Awaiting callback at this time. 07/21/17 20:02 Patient has received 2 different IV antibiotics daptomycin as well as vancomycin. D5 half-normal saline with 20 mEq of potassium ordered at 150 mL/ h. Every 2 hour Dilaudid orders given for pain. Dr. Weaver has recevied report on patient as still awaiing call back from [facility] to get an accepting - Vital Signs Vital signs: Temp Pulse Resp BP Pulse Ox 98.0 F 111 H 21 H 112/77 98 07/21/17 08:52 07/21/17 08:52 07/21/17 19:10 07/21/17 19:10 07/21/17 19:10 - Laboratory Result Diagrams: 07/21/17 09:40 07/21/17 09:40 Laboratory results interpreted by me: 07/21/17 07/21/17 07/21/17 09:40 09:40 09:40 WBC 16.0 H RBC 4.26 L Hgb 10.6 L Hct 33.2 L MCV 78 L MCH 24.9 L RDW 17.0 H Plt Count 532 H Absolute Neutrophils 11.9 H Sodium 134.7 L Creatinine 0.45 L Glucose 216 H Lactic Acid 2.2 H Creatine Kinase 21 L Total Protein 8.9 H 07/21/17 18:13 WBC RBC Hgb Hct MCV MCH RDW Plt Count Absolute Neutrophils Sodium Creatinine Glucose Lactic Acid 2.2 H Creatine Kinase Total Protein - EKG Interpretation by Tn EKG shows normal: Wendel, Intervals, QRS Complexes, ST-T Waves Rate: Tachycardia Critical Care Note - Critical Care Note Total time excluding time spent on procedures (mins): 60 Comments: Tachycardia, pain management, consultation with specialists, infection Discharge - Discharge Clinical Impression: Osteomyelitis of thoracic spine, Epidural abscess
--- NOTE | 2017-07-21 12:53 | RADIOLOGY REPORT (SQ) ---
EXAM DESCRIPTION: KNEE RIGHT 2 VIEWS COMPLETED DATE/TIME: 07/21/2017 12:26 pm REASON FOR STUDY: fall, pain COMPARISON: None. NUMBER OF VIEWS: Two views. TECHNIQUE: AP and lateral radiographic images acquired of the right knee. LIMITATIONS: None. FINDINGS: MINERALIZATION: Normal. BONES: No acute fracture or dislocation. Joint space narrowing with osteophytes in all 3 compartment s. No worrisome bone lesions. JOINT: No effusion. SOFT TISSUES: No soft tissue swelling. No radio-opaque foreign body. OTHER: No other significant finding. IMPRESSION: DEGENERATIVE JOINT DISEASE. NO ACUTE FINDINGS. TECHNICAL DOCUMENTATION: JOB ID: [id number] [employer]- All Rights Reserved Reading location - IP/workstation name: [email or web address]
--- NOTE | 2017-07-21 12:57 | RADIOLOGY REPORT (SQ) ---
EXAM DESCRIPTION: CTA CHEST COMPLETED DATE/TIME: 07/21/2017 12:15 pm REASON FOR STUDY: chest pain COMPARISON: None. TECHNIQUE: CT scan of the chest performed using helical scanning technique with dynamic intravenous contrast injection. Images reviewed with lung, soft tissue and bone windows. Reconstructed coronal and sagittal MPR images reviewed. Additional 3 dimensional post-processing performed to develop Maximal Intensity Projection images (UT P). All images stored on PACS. All CT scanners at this facility use dose modulation, iterative reconstruction, and/or weight based d osing when appropriate to reduce radiation dose to as low as reasonably achievable (ALARA). [facility]: Dose Right [facility]: CareDose [facility]: Dose Right [facility]: Teradose 4D [facility]: OROS CONTRAST TYPE AND DOSE: contrast/concentration: Isovue 370.00 mg/ml; Total Contrast Delivered: 61.0 ml; Total Saline Delivered: 104.0 ml Contrast bolus optimized for the pulmonary arteries. Not diagnostic for the aorta. RENAL FUNCTION: BUN 13 creatinine 0.45 RADIATION DOSE: CT Rad equipment meets quality standard of care and radiation dose reduction techniq ues were employed. CTDIvol: 14.3 - 33.1 mGy. DLP: 663 mGy-cm. . LIMITATIONS: None. FINDINGS: LUNGS AND PLEURA: No pulmonary masses or infiltrates are seen. There is paraspinous pleur al thickening bilaterally, right greater than left centered at T5-T6. There is associated bone destr uction. The osseous findings are best seen on images 50 seconds through 61 series 3. AORTA AND GREAT VESSELS: No aneurysm. Contrast bolus not optimized for the aorta. HEART: No pericardial effusion. No significant coronary artery calcifications. PULMONARY ARTERIES: No emboli visualized in the main pulmonary arteries or the segmental branches. HILAR AND MEDIASTINAL STRUCTURES: No identified masses or abnormal nodes. HARDWARE: None in the chest. UPPER ABDOMEN: No significant findings. Limited exam. THYROID AND OTHER SOFT TISSUES: No masses. No adenopathy. BONES: There is narrowing of the C5-6 disc space with destructive changes involving the vertebral end plates. This is associated with paraspinous soft tissues thickening as described above. 3D MIPS: Confirm above findings. OTHER: No other significant finding. IMPRESSION: 1. There is no evidence of pulmonary embolus. 2. There are changes in the thoracic spine as described. The findings may suggest discitis. Neopla sm cannot be excluded. COMMENT: Findings were discussed with the ordering physician at 1252 hours on this date. Quality ID # [id number]: Final reports with documentation of one or more dose reduction techniques (e.g., Au tomated exposure control, adjustment of the mA and/or kV according to patient size, use of iterative reconstruction technique) TECHNICAL DOCUMENTATION: JOB ID: [id number] [employer]- All Rights Reserved Reading location - IP/workstation name: [email or web address]
[2017-07-21] MEDS ORDERED: NORMAL SALINE 1000 ML 1,000 ML IV ONE (13:36)
[2017-07-21] MEDS ORDERED: HYDROMORPHONE HCL INJ/PF 2 MG/ML AMPULE IV ONE ×2 (13:36→17:51)
[2017-07-21] MEDS ORDERED: DAPTOMYCIN INJ 500 MG VIAL IV ONE (13:39)
[2017-07-21] MEDS ORDERED: DAPTOMYCIN 500 MG in NORMAL SALINE 50 ML IV ONE (15:00)
[2017-07-21] MEDS ORDERED: KETOROLAC TROMETHAMINE INJ/PF 30 MG/1 ML SDV IV ONE (17:51)
[2017-07-21] MEDS ORDERED: VANCOMYCIN HCL INJ 1000 MG VIAL IV ONE (19:23)
--- NOTE | 2017-07-21 19:31 | RADIOLOGY REPORT (SQ) ---
EXAM DESCRIPTION: MRI THORACIC SPINE WITHOUT COMPLETED DATE/TIME: 07/21/2017 5:55 pm REASON FOR STUDY: possible epidural abscess seen on CT COMPARISON: None. TECHNIQUE: Sagittal and Axial imaging includes T1, T2, STIR and gradient echo sequences. LIMITATIONS: None. FINDINGS: Diffuse inflammatory changes at the T6-7 level involving the vertebral bodies and disc spa ce with perivertebral soft tissue swelling and edema and both posterior pleural spaces. There is als o a 7 mm thick posterior and left lateral epidural abscess. Spinal cord signal is normal. No other levels appear involved in the field of view. OTHER: No other significant finding. IMPRESSION: Epidural abscess and osteomyelitis -discitis at the T6-7 level. COMMENT: These results were called to Dr. Martinez at 1920 hours. Results were confirmed and read b ack. TECHNICAL DOCUMENTATION: JOB ID: [id number] 2010 [employer]- All Rights Reserved Reading location - IP/workstation name: [employer]
[2017-07-21] MEDS ORDERED: HYDROMORPHONE HCL INJ/PF 2 MG/ML AMPULE IV SCH (20:00)
[2017-07-21] MEDS ORDERED: POTASSI CL 20 MEQ/D5-1/2NS 1L 1,000 ML IV ONE (20:01)
[2017-07-21 23:25] VITALS: BP 126/84
--- NOTE | 2017-07-22 10:18 | EKG REPORT ---
SEVERITY:- OTHERWISE NORMAL ECG - SINUS TACHYCARDIA : Confirmed by: Eliot Welsh 22-Jul-2017 10:16:58
== END 2017-07-21 23:15 | disposition short-term general hospital (02) ==
LOC: ER 08:38
DX: R07.9 Chest pain, unspecified (principal)
CPT/HCPCS: 93005; 96376; 99291; 96361; 96375; 96365; 96366; 96367; 36415; 87040; 82553; 82550; 85025; 87077; 80053; 84484; 87186; 83605; 72146; 71045; 73560; 71275; 93010; J3010; J1885; J1170; J3480; J0878; J7030; J3370

== ENCOUNTER 2017-07-27 16:32 | Inpatient (IN) | payer OTHER ==
[2017-07-27] MEDS ORDERED: ONDANSETRON 4 MG TAB.RAPDIS PO PRN (17:53)
[2017-07-27] MEDS ORDERED: ACETAMINOPHEN 325 MG TABLET PO PRN (17:53)
[2017-07-27] MEDS ORDERED: IPRATROPIUM/ALBUTEROL 0.5-2.5 MG/3 ML AMPUL NEB PRN (17:53)
[2017-07-27] MEDS ORDERED: DEXTROSE 50%-WATER 25 GM/50 ML DISP.SYRIN IV PRN ×2 (18:00)
[2017-07-27] MEDS ORDERED: DEXTROSE 40% GEL 15 GM TUBE PO PRN ×2 (18:00)
[2017-07-27] MEDS ORDERED: GLUCAGON,HUMAN RECOMB 1 MG INJ IM PRN (18:00)
[2017-07-27] MEDS ORDERED: POLYETHYLENE GLYCOL 3350 POWDER 17 GM/1 PACKET PO PRN (18:10)
[2017-07-27] MEDS ORDERED: VANCOMYCIN HCL INJ 1000 MG VIAL IV SCH (18:15)
[2017-07-27] MEDS: DOCUSATE SODIUM 100 MG CAPSULE PO SCH (18:38)
[2017-07-27] MEDS ORDERED: KETOROLAC TROMETHAMINE INJ/PF 30 MG/1 ML SDV ONE (18:48)
[2017-07-27 19:06] LABS: ANION GAP 7 (5-19); BLOOD UREA NITROGEN 9 mg/dL (7-20); CALCIUM 8.5 mg/dL (8.4-10.2); CARBON DIOXIDE 27 mmol/L (22-30); CHLORIDE 101 mmol/L (98-107); GLUCOSE 258 mg/dL (75-110); POTASSIUM 4.1 mmol/L (3.6-5.0); SODIUM 135.2 mmol/L (137-145)
[2017-07-27] MEDS: OXYCODONE-ACETAMINOPHEN 5-325 MG TABLET PO PRN (19:58)
[2017-07-27] MEDS: NICOTINE 14 MG/24 HR PATCH.TD24 TD SCH (19:59)
[2017-07-27] MEDS: LIDOCAINE 5% (700 MG) TRANSDERMAL ADH..PATCH TP SCH (21:33)
[2017-07-27] MEDS: RIFAMPIN 300 MG CAPSULE PO SCH (21:34)
[2017-07-27] MEDS: VANCOMYCIN HCL 1,500 MG in DEXTROSE 5%-WATER 250 ML IV SCH (22:39)
[2017-07-27] MEDS: INSULIN LISPRO 100 UNIT/ML 3 ML VIAL SUBCUT PRN (22:39)
[2017-07-28] MEDS: KETOROLAC TROMETHAMINE INJ/PF 30 MG/1 ML SDV IV PRN ×4 (00:45→22:14)
[2017-07-28] MEDS: OXYCODONE-ACETAMINOPHEN 5-325 MG TABLET PO PRN ×3 (02:48→19:41)
[2017-07-28 06:34] LABS: ABSOLUTE EOSINOPHILS # (AUTO) 0.2 10^3/uL (0.0-0.6); ABSOLUTE LYMPHOCYTES (AUTO) 3.3 10^3/uL (0.5-4.7); ABSOLUTE MONOCYTES (AUTO) 0.6 10^3/uL (0.1-1.4); ABSOLUTE NEUT (AUTO) 5.5 10^3/uL (1.7-8.2); BASOPHILS % (AUTO) 0.4 % (0-2); EOSINOPHILS % (AUTO) 2.4 % (0-6); HEMATOCRIT 30.7 % (37.9-51.0); HEMOGLOBIN 9.9 g/dL (13.5-17.0); LYMPHOCYTES % (AUTO) 34.2 % (13-45); MEAN CORPUSCULAR HEMOGLOBIN 25.4 pg (27.0-33.4); MEAN CORPUSCULAR HGB CONC 32.2 g/dL (32.0-36.0); MEAN CORPUSCULAR VOLUME 79 fl (80-97); MONOCYTES % (AUTO) 5.8 % (3-13); PLATELET COUNT 494 10^3/uL (150-450); RED BLOOD COUNT 3.89 10^6/uL (4.35-5.55); RED CELL DISTRIBUTION WIDTH 17.3 % (11.5-14.0); SEGMENTED NEUTROPHILS % (AUTO) 57.2 % (42-78); TOTAL CELLS COUNTED % (AUTO) 100 %; WHITE BLOOD COUNT 9.6 10^3/uL (4.0-10.5)
[2017-07-28] MEDS: VANCOMYCIN HCL 1,500 MG in DEXTROSE 5%-WATER 250 ML IV SCH (09:41)
[2017-07-28] MEDS: RIFAMPIN 300 MG CAPSULE PO SCH ×2 (09:41→21:25)
[2017-07-28] MEDS: DOCUSATE SODIUM 100 MG CAPSULE PO SCH ×2 (09:41→18:25)
[2017-07-28] MEDS: FENTANYL CITRATE INJ/PF 100 MCG/2 ML AMPUL IV PRN ×2 (10:59→18:29)
[2017-07-28] MEDS: VANCOMYCIN HCL 1,000 MG in DEXTROSE 5%-WATER 250 ML IV SCH ×2 (16:08→20:19)
--- NOTE | 2017-07-28 18:30 | XCELERA REPORT ---
[address] [address] Transthoracic Echocardiogram Report Name: SUSHIL JARA Age: 47 yrs Gender: Male : 1970 Patient Status: Inpatient Patient Location: [address] [place] [address] Study Date: 07/28/2017 02:00 PM Height: 69 in Weight: 146 lb BSA: 1.8 m2 Procedure: A complete two-dimensional transthoracic echocardiogram was performed (2D, M-mode, spectral and color flow Doppler). The study was technically adequate with some images being suboptimal in quality. Reason For Study: tricuspid endocarditis re-evaluation Ordering Physician: CARL ALBERTS Performed By: Liliya Bustillos Interpretation Summary Left ventricular systolic function is low normal. There is borderline concentric left ventricular hypertrophy. The left ventricle is grossly normal size. Doppler measurements suggest pseudonormalized left ventricular relaxation, which is associated with grade II/IV or mild to moderate diastolic dysfunction No regional wall motion abnormalities noted. The right ventricular systolic function is normal. The right atrium is normal in size The left atrial size is normal. There is no mitral valve stenosis. There is no mitral regurgitation noted. There is no aortic valve stenosis No aortic regurgitation is present. There is a trace or physiologic amount of tricuspid regurgitation Tricuspid regurgitation jet envelope not well defined to measure RV systolic pressure accurately. The aortic root is not well visualized but is probably normal size. The inferior vena cava appeared normal and decreased > 50% with respiration (RAP 5-10 mmHg) There is no pericardial effusion. No definite vegetations noted but if clinical suspicion is high, then consider DOMINGO and multiple blood cultures. MMode/2D Measurements & Calculations RVDd: 2.9 cm LVIDd: 5.3 cm FS: 32.7 % Ao root diam: 2.8 cm IVSd: 1.0 cm LVIDs: 3.6 cm EDV(Teich): 136.3 ml LVPWd: 0.96 cm ESV(Teich): 53.7 ml Ao root area: 6.2 cm2 EF(Teich): 60.6 % LA dimension: 3.3 cm Doppler Measurements & Calculations MV E max wen: MV P1/2t max wen: Ao V2 max: LV V1 max P.0 cm/sec 40.5 cm/sec 125.5 cm/sec 3.7 mmHg MV A max wen: MV P1/2t: 78.1 msec Ao max PG: LV V1 max: 73.1 cm/sec 6.3 mmHg 96.7 cm/sec MV E/A: 0.55 MVA(P1/2t): 2.8 cm2 MV dec slope: 151.7 cm/sec2 MV dec time: 0.25 sec PA V2 max: 91.8 cm/sec PA max P.4 mmHg Left Ventricle The left ventricle is grossly normal size. There is borderline concentric left ventricular hypertrophy. Left ventricular systolic function is low normal. Doppler measurements suggest pseudonormalized left ventricular relaxation, which is associated with grade II/IV or mild to moderate diastolic dysfunction. No regional wall motion abnormalities noted. Right Ventricle The right ventricle is grossly normal size. There is normal right ventricular wall thickness. The right ventricular systolic function is normal. Atria The right atrium is normal in size. The left atrial size is normal. Interarterial septum not well visualized and not well dopplered. Cannot comment on ASD/PFO presence. Mitral Valve The mitral valve leaflets are sclerotic, but show no functional abnormalities. There is no mitral valve stenosis. There is no mitral regurgitation noted. Aortic Valve The aortic valve is grossly normal. The aortic valve is trileaflet. There is no aortic valve stenosis. No aortic regurgitation is present. Tricuspid Valve The tricuspid valve is not well visualized, but is grossly normal. There is no tricuspid stenosis. There is a trace or physiologic amount of tricuspid regurgitation. Tricuspid regurgitation jet envelope not well defined to measure RV systolic pressure accurately. Pulmonic Valve The pulmonic valve is not well visualized. Great Vessels The aortic root is not well visualized but is probably normal size. The inferior vena cava appeared normal and decreased > 50% with respiration (RAP 5-10 mmHg). Effusions There is no pericardial effusion. Incidental Findings No definite vegetations noted but cannot completely rule it out. Consider DOMINGO if clinically indicated. No definite vegetations noted but if clinical suspicion is high, then consider DOMINGO and multiple blood cultures. : CARL ALBERTS > Eliot Welsh
[2017-07-28] MEDS: NICOTINE 14 MG/24 HR PATCH.TD24 TD SCH (19:41)
[2017-07-28] MEDS: LIDOCAINE 5% (700 MG) TRANSDERMAL ADH..PATCH TP SCH (21:25)
[2017-07-28] MEDS: INSULIN LISPRO 100 UNIT/ML 3 ML VIAL SUBCUT PRN (21:25)
--- NOTE | 2017-07-28 22:56 | PDOC PROGRESS REPORT ---
Subjective Progress Note for:: 07/28/17 Subjective:: 47 year old male transferred from [facility] for continued care for his Osteomyelitis of T6/T7 and epidural abscess s/p aspiration. Patient has a hx of IVDU and was diagnosed with MSSA tricuspid Endocarditis in 04/2017 and recieved 6 weeks of IV treatment in [place], discharged in 06/2017. Patient complained of uncontrolled back pain this AM. Will add prn IV Fentanyl given his legitimate osteomyelitis/infection and the hospital not having many IV opiate options. Patient dose display emotional lability. Reason For Visit: OSTEOMYELITIS OF T6/T7 AND EPIDURAL ABSCESS S/P Physical Exam Vital Signs: Temp Pulse Resp BP Pulse Ox 97.9 F 96 16 126/78 H 99 07/28/17 20:00 07/28/17 20:00 07/28/17 20:00 07/28/17 20:00 07/28/17 20:00 Intake & Output 07/27/17 07/28/17 07/29/17 06:59 06:59 06:59 Intake Total 930 590 Output Total 500 Balance 430 590 Weight 66.1 kg General appearance: PRESENT: no acute distress, thin Head exam: PRESENT: atraumatic, normocephalic Eye exam: PRESENT: EOMI, PERRLA. ABSENT: conjunctiva pink, nystagmus Ear exam: PRESENT: normal external ear exam Mouth exam: PRESENT: moist, neck supple, tongue midline Neck exam: ABSENT: JVD, tenderness, thyromegaly Respiratory exam: ABSENT: accessory muscle use, rales, rhonchi, wheezes Cardiovascular exam: PRESENT: RRR, +S1, +S2. ABSENT: diastolic murmur, systolic murmur Pulses: PRESENT: normal radial pulses, normal dorsalis pedis pul Vascular exam: PRESENT: normal capillary refill. ABSENT: pallor GI/Abdominal exam: PRESENT: normal bowel sounds. ABSENT: distended, rigid, soft Extremities exam: ABSENT: calf tenderness, joint swelling Musculoskeletal exam: PRESENT: ambulatory, full ROM Neurological exam: PRESENT: alert, oriented to person, oriented to place, oriented to time, CN II-XII grossly intact Psychiatric exam: PRESENT: agitated, anxious. ABSENT: flat affect Focused psych exam: ABSENT: paranoid, pressured speech Skin exam: ABSENT: cyanosis, mottled, normal color Results Laboratory Results: 07/28/17 06:17 07/27/17 18:35 07/28/17 07/28/17 06:17 06:17 WBC 9.6 RBC 3.89 L Hgb 9.9 L Hct 30.7 L MCV 79 L MCH 25.4 L MCHC 32.2 RDW 17.3 H Plt Count 494 H Seg Neutrophils % 57.2 Lymphocytes % 34.2 Monocytes % 5.8 Eosinophils % 2.4 Basophils % 0.4 Absolute Neutrophils 5.5 Absolute Lymphocytes 3.3 Absolute Monocytes 0.6 Absolute Eosinophils 0.2 Absolute Basophils 0.0 Magnesium 2.1 Assessment & Plan - Plan Summary Plan Summary: (1) Osteomyelitis Plan: Will continue Vancomycin IV and Rifampin PO. Target a minimum of 6 weeks of therapy. This is an unfortunate possible relapse of his prior MSSA treatment. TTE this admission did not show evidence of a tricuspid vegetation. (2) IVDU (intravenous drug user) Plan: Patient will need counseling after discharge. He unfortunately has anxiety and a described bipolar dissorder that could be followed by OP psychiatry (3) Diabetes mellitus type 2 in nonobese Plan: A1C was 6.2% in OSH will give access to SSI, DM diet (4) Back pain Plan: tylenol, percocet, limited Toradol, and lidocaine patch for pain control Adding limited dosing of IV Fentanyl push for severe back pain episodes. (5) Endocarditis of tricuspid valve Plan: Completed 6 weeks of antibiotics here in [place] for this ending on 06/28/17. no evidence of vegetation on DOMINGO. 6. Medical Necessity. I was asked if patient could be sent out of the hospital in his current condition with continued treatment. This is not an option for an active drug user, given the high risk of his contaminating his PICC line and causing a line related sepsis and possible . Patient will need to finish a total of 6 weeks of treatment in a well monitored , safe controlled setting to increase his chances of surviving his current infection.
[2017-07-29] MEDS: FENTANYL CITRATE INJ/PF 100 MCG/2 ML AMPUL IV PRN ×5 (00:09→23:57)
[2017-07-29] MEDS: OXYCODONE-ACETAMINOPHEN 5-325 MG TABLET PO PRN ×4 (02:10→21:17)
[2017-07-29] MEDS: VANCOMYCIN HCL 1,000 MG in DEXTROSE 5%-WATER 250 ML IV SCH ×3 (02:10→17:24)
[2017-07-29] MEDS: KETOROLAC TROMETHAMINE INJ/PF 30 MG/1 ML SDV IV PRN (04:52)
[2017-07-29 05:04] LABS: HEMOGLOBIN 9.9 g/dL (13.5-17.0); MEAN CORPUSCULAR HEMOGLOBIN 25.2 pg (27.0-33.4); MEAN CORPUSCULAR HGB CONC 31.9 g/dL (32.0-36.0); MEAN CORPUSCULAR VOLUME 79 fl (80-97); PLATELET COUNT 469 10^3/uL (150-450); RED BLOOD COUNT 3.93 10^6/uL (4.35-5.55); RED CELL DISTRIBUTION WIDTH 17.5 % (11.5-14.0); WHITE BLOOD COUNT 11.5 10^3/uL (4.0-10.5)
[2017-07-29 05:19] LABS: ALBUMIN 3.3 g/dL (3.5-5.0); ANION GAP 11 (5-19); BLOOD UREA NITROGEN 11 mg/dL (7-20); CALCIUM 9.3 mg/dL (8.4-10.2); CARBON DIOXIDE 27 mmol/L (22-30); CHLORIDE 104 mmol/L (98-107); GLUCOSE 142 mg/dL (75-110); PHOSPHORUS 4.9 mg/dL (2.5-4.5); POTASSIUM 4.3 mmol/L (3.6-5.0); SODIUM 141.5 mmol/L (137-145)
[2017-07-29] MEDS: DOCUSATE SODIUM 100 MG CAPSULE PO SCH ×2 (09:11→17:24)
[2017-07-29] MEDS: RIFAMPIN 300 MG CAPSULE PO SCH ×2 (09:12→21:23)
[2017-07-29 10:14] LABS: VANCOMYCIN,TROUGH 23.4 ug/mL (5.0-20.0)
[2017-07-29] MEDS: INSULIN LISPRO 100 UNIT/ML 3 ML VIAL SUBCUT PRN ×2 (12:33→21:24)
--- NOTE | 2017-07-29 17:08 | PDOC PROGRESS REPORT ---
Subjective Progress Note for:: 07/29/17 Subjective:: Patient is a 47-year-old male who was transferred back to our facility from [facility] for continued care of osteomyelitis of T6-T7. The patient is status post aspiration of an epidural abscess. This likely occurred in association with his MSSA tricuspid endocarditis which was diagnosed in 2016. This was precipitated by IV drug use. The patient has been complaining of ongoing back pain. Yesterday, a trial of fentanyl was started. Reason For Visit: OSTEOMYELITIS OF T6/T7 AND EPIDURAL ABSCESS S/P Physical Exam Vital Signs: Temp Pulse Resp BP Pulse Ox 98.3 F 98 16 142/90 H 100 07/29/17 16:00 07/29/17 16:00 07/29/17 16:00 07/29/17 16:00 07/29/17 16:00 Intake & Output 07/28/17 07/29/17 07/30/17 06:59 06:59 06:59 Intake Total 930 1750 Output Total 500 Balance 430 1750 Weight 66.1 kg 66.3 kg Additional comments: The patient is thin, without being cachectic. He does have evidence of malnourishment with temporal wasting. He appears to be in chronically poor health. He does appear to be his stated age of 47. His cognition and mentation are appropriate. He answers all questions appropriately. His facial appearance is otherwise unremarkable. His lungs are noted to be clear to auscultation bilaterally. His cardiac exam demonstrates a regular rate and rhythm without murmurs, gallops or rubs. Inspection of the back is unremarkable. The abdominal exam is benign. The lower extremities are unremarkable except for some old healed the skin lesions particularly on the left lower extremity. Results Laboratory Results: 07/29/17 04:53 07/29/17 09:05 07/29/17 07/29/17 07/29/17 04:53 04:53 09:05 WBC 11.5 H RBC 3.93 L Hgb 9.9 L Hct 31.0 L MCV 79 L MCH 25.2 L MCHC 31.9 L RDW 17.5 H Plt Count 469 H Sodium 141.5 Potassium 4.3 Chloride 104 Carbon Dioxide 27 Anion Gap 11 BUN 11 Creatinine 0.54 0.54 Est GFR ( Amer) > 60 > 60 Est GFR (Non-Af Amer) > 60 > 60 Glucose 142 H Calcium 9.3 Phosphorus 4.9 H Albumin 3.3 L Assessment & Plan - Diagnosis (1) Osteomyelitis Is this a current diagnosis for this admission?: Yes Plan: The patient is currently on vancomycin IV and p.o. rifampin. He will need to complete a total of 6 weeks of antibiotics. This infection is likely due to his previous endocarditis infection. (2) Back pain Is this a current diagnosis for this admission?: Yes Plan: Continue Tylenol, as needed Percocet, use Toradol sparingly, continue lidocaine patch and use fentanyl sparingly. (3) Diabetes mellitus type 2 in nonobese Is this a current diagnosis for this admission?: Yes Plan: Continue sliding scale insulin and diabetic diet. (4) IVDU (intravenous drug user) Is this a current diagnosis for this admission?: Yes Plan: Patient has underlying psychiatric disorders to include bipolar disease and anxiety. He will need management and follow-up with psychiatric services after discharge. (5) Endocarditis Is this a current diagnosis for this admission?: Yes Plan: Patient completed antibiotics for MSSA tricuspid endocarditis on 06/28/2017.
[2017-07-29] MEDS: LIDOCAINE 5% (700 MG) TRANSDERMAL ADH..PATCH TP SCH (21:16)
[2017-07-29] MEDS: NICOTINE 14 MG/24 HR PATCH.TD24 TD SCH (21:17)
[2017-07-30] MEDS: ZOLPIDEM TARTRATE 5 MG TABLET PO PRN ×2 (01:09→21:58)
[2017-07-30] MEDS: VANCOMYCIN HCL 1,000 MG in DEXTROSE 5%-WATER 250 ML IV SCH ×3 (02:04→18:05)
[2017-07-30] MEDS: OXYCODONE-ACETAMINOPHEN 5-325 MG TABLET PO PRN ×3 (04:15→19:52)
[2017-07-30] MEDS: FENTANYL CITRATE INJ/PF 100 MCG/2 ML AMPUL IV PRN ×3 (05:51→21:58)
[2017-07-30] MEDS: DOCUSATE SODIUM 100 MG CAPSULE PO SCH ×2 (10:44→18:02)
[2017-07-30] MEDS: RIFAMPIN 300 MG CAPSULE PO SCH ×2 (10:44→21:58)
--- NOTE | 2017-07-30 17:37 | PDOC PROGRESS REPORT ---
Subjective Progress Note for:: 07/30/17 Subjective:: Patient is a 47-year-old male who was transferred back to our facility from [facility] for continued care of osteomyelitis of T6-T7. The patient is status post aspiration of an epidural abscess. This likely occurred in association with his MSSA tricuspid endocarditis which was diagnosed in 2016. This was precipitated by IV drug use. The patient has been complaining of ongoing back pain. Yesterday, a trial of fentanyl was started. Chart review reflects that the patient presented here on July 21, 2017 with evidence of osteomyelitis and abscess of the spine. He was then transferred to [facility]. Therefore, I would recommend that we use July 22, 2017 for the start date of antibiotic therapy. Reason For Visit: OSTEOMYELITIS OF T6/T7 AND EPIDURAL ABSCESS S/P Physical Exam Vital Signs: Temp Pulse Resp BP Pulse Ox 98.5 F 82 18 121/77 99 07/30/17 08:38 07/30/17 08:38 07/30/17 08:38 07/30/17 08:38 07/30/17 08:38 Intake & Output 07/29/17 07/30/17 07/31/17 06:59 06:59 06:59 Intake Total 1750 2838 Balance 1750 2838 Weight 66.3 kg 66.3 kg Additional comments: The patient appears to be very unhealthy. He is quite thin with some evidence of temporal wasting. His cognition and mentation are normal. His facial appearance demonstrates poor dentition. His lungs are clear to auscultation bilaterally. His cardiac exam is regular without murmurs, gallops or rubs. The abdomen is soft and flat. Bowel sounds are present in the lower quadrants. He does not have any guarding or rebound and there are no hernias or masses present. The lower extremities are fairly unremarkable. He has no edema present. The skin is clean, warm, dry and intact without lesions or rashes in the visible areas. Patient does have point tenderness over the thoracic spine. Results Laboratory Results: 07/29/17 04:53 07/29/17 09:05 Assessment & Plan - Diagnosis (1) Osteomyelitis Is this a current diagnosis for this admission?: Yes Plan: The patient is currently on vancomycin IV and p.o. rifampin. He will need to complete a total of 6 weeks of antibiotics. This infection is likely due to his previous endocarditis infection. (2) Back pain Is this a current diagnosis for this admission?: Yes Plan: Continue Tylenol, as needed Percocet, use Toradol sparingly, continue lidocaine patch and use fentanyl sparingly. Patient was informed that his use of narcotics is going to lead to narcotic addiction. I did explain that this is a consequence of the medication and not a consequence of his personality or "" weakness. (3) Diabetes mellitus type 2 in nonobese Is this a current diagnosis for this admission?: Yes Plan: Continue sliding scale insulin and diabetic diet. (4) IVDU (intravenous drug user) Is this a current diagnosis for this admission?: Yes Plan: Patient has underlying psychiatric disorders to include bipolar disease and anxiety. He will need management and follow-up with psychiatric services after discharge. (5) Endocarditis Is this a current diagnosis for this admission?: Yes Plan: Patient completed antibiotics for MSSA tricuspid endocarditis on 06/28/2017. - Time Time Spent with patient: 15-24 minutes - Inpatient Certification Medical Necessity: Need for IV Antibiotics
[2017-07-30] MEDS ORDERED: FENTANYL CITRATE INJ/PF 100 MCG/2 ML AMPUL ONE (18:02)
[2017-07-30 18:28] LABS: VANCOMYCIN,TROUGH 18.1 ug/mL (5.0-20.0)
[2017-07-30] MEDS: INSULIN LISPRO 100 UNIT/ML 3 ML VIAL SUBCUT PRN (21:56)
[2017-07-30] MEDS: NICOTINE 14 MG/24 HR PATCH.TD24 TD SCH (21:57)
[2017-07-30] MEDS: LIDOCAINE 5% (700 MG) TRANSDERMAL ADH..PATCH TP SCH (21:58)
[2017-07-31] MEDS: OXYCODONE-ACETAMINOPHEN 5-325 MG TABLET PO PRN ×3 (01:29→18:24)
[2017-07-31] MEDS: FENTANYL CITRATE INJ/PF 100 MCG/2 ML AMPUL IV PRN ×6 (02:30→23:57)
[2017-07-31] MEDS: VANCOMYCIN HCL 1,000 MG in DEXTROSE 5%-WATER 250 ML IV SCH ×3 (02:30→16:32)
[2017-07-31 05:03] LABS: ABSOLUTE BASOPHILS # (AUTO) 0.1 10^3/uL (0.0-0.2); ABSOLUTE EOSINOPHILS # (AUTO) 0.3 10^3/uL (0.0-0.6); ABSOLUTE LYMPHOCYTES (AUTO) 4.9 10^3/uL (0.5-4.7); ABSOLUTE MONOCYTES (AUTO) 0.8 10^3/uL (0.1-1.4); ABSOLUTE NEUT (AUTO) 6.6 10^3/uL (1.7-8.2); BASOPHILS % (AUTO) 0.5 % (0-2); EOSINOPHILS % (AUTO) 2.5 % (0-6); HEMATOCRIT 31.7 % (37.9-51.0); HEMOGLOBIN 10.1 g/dL (13.5-17.0); LYMPHOCYTES % (AUTO) 38.7 % (13-45); MEAN CORPUSCULAR HEMOGLOBIN 25.4 pg (27.0-33.4); MEAN CORPUSCULAR HGB CONC 31.9 g/dL (32.0-36.0); MEAN CORPUSCULAR VOLUME 80 fl (80-97); MONOCYTES % (AUTO) 6.7 % (3-13); PLATELET COUNT 486 10^3/uL (150-450); RED BLOOD COUNT 3.97 10^6/uL (4.35-5.55); RED CELL DISTRIBUTION WIDTH 18.3 % (11.5-14.0); SEGMENTED NEUTROPHILS % (AUTO) 51.6 % (42-78); TOTAL CELLS COUNTED % (AUTO) 100 %; WHITE BLOOD COUNT 12.7 10^3/uL (4.0-10.5)
[2017-07-31 05:29] LABS: ALANINE AMINOTRANSFERASE 38 U/L (21-72); ALBUMIN 3.5 g/dL (3.5-5.0); ALKALINE PHOSPHATASE 120 U/L (38-126); ANION GAP 9 (5-19); ASPARTATE AMINO TRANSFERASE 29 U/L (17-59); BILIRUBIN,DIRECT 0.2 mg/dL (0.0-0.4); BILIRUBIN,TOTAL 0.2 mg/dL (0.2-1.3); BLOOD UREA NITROGEN 12 mg/dL (7-20); CALCIUM 9.2 mg/dL (8.4-10.2); CARBON DIOXIDE 26 mmol/L (22-30); CHLORIDE 105 mmol/L (98-107); GLUCOSE 199 mg/dL (75-110); PHOSPHORUS 5.4 mg/dL (2.5-4.5); POTASSIUM 4.3 mmol/L (3.6-5.0); TOTAL PROTEIN 8.1 g/dL (6.3-8.2)
[2017-07-31] MEDS: DOCUSATE SODIUM 100 MG CAPSULE PO SCH ×2 (08:29→08:42)
[2017-07-31] MEDS: RIFAMPIN 300 MG CAPSULE PO SCH ×2 (08:41→21:44)
[2017-07-31] MEDS: INSULIN LISPRO 100 UNIT/ML 3 ML VIAL SUBCUT PRN (11:00)
[2017-07-31] MEDS ORDERED: OXYCODONE HCL SR 10 MG TABLET PO ONE (12:30)
--- NOTE | 2017-07-31 17:23 | PDOC PROGRESS REPORT ---
Subjective Progress Note for:: 07/31/17 Subjective:: Patient is a 47-year-old male who was transferred back to our facility from [facility] for continued care of osteomyelitis of T6-T7. The patient is status post aspiration of an epidural abscess. This likely occurred in association with his MSSA tricuspid endocarditis which was diagnosed in April of 2017. This was precipitated by IV drug use. The patient has been complaining of ongoing back pain. On Monday intravenous fentanyl was started for breakthrough pain. Yesterday, the patient continued to have very severe pain. I did increase the frequency of the dose of fentanyl. Today, the patient continues to have unbearable pain. Therefore, I added long-acting OxyContin and increased his dose of short acting oxycodone. I did inform the patient that he will likely have ongoing problems with opioid addiction. He told me that he has been addicted to opioids in the past but has been able to quit cold turkey. Chart review reflects that the patient presented here on July 21, 2017 with evidence of osteomyelitis and abscess of the spine. He was then transferred to [facility]. Therefore, I would recommend that we use July 22, 2017 for the start date of antibiotic therapy. Reason For Visit: OSTEOMYELITIS OF T6/T7 AND EPIDURAL ABSCESS S/P Physical Exam Vital Signs: Temp Pulse Resp BP Pulse Ox 98.0 F 96 16 122/81 99 07/31/17 12:23 07/31/17 12:23 07/31/17 12:23 07/31/17 12:23 07/31/17 12:23 Intake & Output 07/30/17 07/31/17 08/01/17 06:59 06:59 06:59 Intake Total 2838 2762 Balance 2838 2762 Weight 66.3 kg 66.5 kg Additional comments: The patient is elderly appearing. He is thin. He has evidence of temporal wasting. He does not appear to be in good health. His cognition and mentation are normal. His lungs are clear to auscultation bilaterally. His cardiac exam demonstrates a regular rate and rhythm without murmurs, gallops or rubs. The back is normal by inspection but he does have point tenderness over the middle thoracic region. The abdomen is soft and flat. Bowel sounds are present in the lower quadrants. He does not have guarding or rebound and there are no hernias or masses present. The lower extremities are very thin. The patient has muscular atrophy. The skin is clean, warm, dry and intact without any acute lesions or rashes. Results Laboratory Results: 07/31/17 04:30 07/31/17 04:30 07/30/17 07/31/17 07/31/17 17:45 04:30 04:30 WBC 12.7 H RBC 3.97 L Hgb 10.1 L Hct 31.7 L MCV 80 MCH 25.4 L MCHC 31.9 L RDW 18.3 H Plt Count 486 H Seg Neutrophils % 51.6 Lymphocytes % 38.7 Monocytes % 6.7 Eosinophils % 2.5 Basophils % 0.5 Absolute Neutrophils 6.6 Absolute Lymphocytes 4.9 H Absolute Monocytes 0.8 Absolute Eosinophils 0.3 Absolute Basophils 0.1 Sodium 140.0 Potassium 4.3 Chloride 105 Carbon Dioxide 26 Anion Gap 9 BUN 12 Creatinine 0.59 0.60 Est GFR ( Amer) > 60 > 60 Est GFR (Non-Af Amer) > 60 > 60 Glucose 199 H Calcium 9.2 Phosphorus 5.4 H Magnesium 2.1 Total Bilirubin 0.2 AST 29 ALT 38 Alkaline Phosphatase 120 Total Protein 8.1 Albumin 3.5 Assessment & Plan - Diagnosis (1) Osteomyelitis Is this a current diagnosis for this admission?: Yes Plan: The patient is currently on vancomycin IV and p.o. rifampin. He will need to complete a total of 6 weeks of antibiotics: start date 07/22/17. This infection is likely due to his previous endocarditis infection. White blood cell count slightly elevated today. Would recommend reculture for any fevers, etc. (2) Back pain Is this a current diagnosis for this admission?: Yes Plan: Continue Tylenol, as needed Percocet, use Toradol sparingly, continue lidocaine patch and use fentanyl. Due to severe pain medication adjustments were made as described above under subjective. (3) Diabetes mellitus type 2 in nonobese Is this a current diagnosis for this admission?: Yes Plan: Continue sliding scale insulin and diabetic diet. (4) IVDU (intravenous drug user) Is this a current diagnosis for this admission?: Yes Plan: Patient has underlying psychiatric disorders to include bipolar disease and anxiety. He will need management and follow-up with psychiatric services after discharge. (5) Endocarditis Is this a current diagnosis for this admission?: Yes Plan: Patient completed antibiotics for MSSA tricuspid endocarditis on 06/28/2017. - Time Time Spent with patient: 15-24 minutes - Inpatient Certification Medical Necessity: Need for IV Antibiotics
[2017-07-31] MEDS: NICOTINE 14 MG/24 HR PATCH.TD24 TD SCH (21:43)
[2017-07-31] MEDS: LIDOCAINE 5% (700 MG) TRANSDERMAL ADH..PATCH TP SCH (21:44)
[2017-07-31] MEDS: OXYCODONE HCL SR 10 MG TABLET PO SCH (21:44)
[2017-08-01] MEDS: OXYCODONE-ACETAMINOPHEN 5-325 MG TABLET PO PRN ×2 (00:46→15:33)
[2017-08-01] MEDS: VANCOMYCIN HCL 1,000 MG in DEXTROSE 5%-WATER 250 ML IV SCH ×3 (02:45→17:09)
[2017-08-01] MEDS: FENTANYL CITRATE INJ/PF 100 MCG/2 ML AMPUL IV PRN ×5 (03:59→21:34)
[2017-08-01] MEDS: DOCUSATE SODIUM 100 MG CAPSULE PO SCH ×2 (08:13→15:16)
[2017-08-01] MEDS: OXYCODONE HCL SR 10 MG TABLET PO SCH ×2 (08:23→22:31)
[2017-08-01] MEDS: RIFAMPIN 300 MG CAPSULE PO SCH ×2 (08:23→21:34)
[2017-08-01] MEDS: INSULIN LISPRO 100 UNIT/ML 3 ML VIAL SUBCUT PRN (10:30)
[2017-08-01] MEDS: PHARMACY COMMUNICATION ORDER MC SCH (13:00)
[2017-08-01] MEDS: NICOTINE 14 MG/24 HR PATCH.TD24 TD SCH (21:34)
[2017-08-01] MEDS: LIDOCAINE 5% (700 MG) TRANSDERMAL ADH..PATCH TP SCH (21:34)
[2017-08-02] MEDS: OXYCODONE-ACETAMINOPHEN 5-325 MG TABLET PO PRN ×3 (01:20→22:25)
[2017-08-02] MEDS: ZOLPIDEM TARTRATE 5 MG TABLET PO PRN (01:21)
[2017-08-02] MEDS: VANCOMYCIN HCL 1,000 MG in DEXTROSE 5%-WATER 250 ML IV SCH ×3 (02:19→18:02)
[2017-08-02] MEDS: FENTANYL CITRATE INJ/PF 100 MCG/2 ML AMPUL IV PRN ×6 (02:19→23:33)
--- NOTE | 2017-08-02 06:11 | PDOC PROGRESS REPORT ---
Subjective Progress Note for:: 08/01/17 Subjective:: No new issues. Reason For Visit: OSTEOMYELITIS OF T6/T7 AND EPIDURAL ABSCESS S/P Physical Exam Vital Signs: Temp Pulse Resp BP Pulse Ox 98.1 F 93 18 131/79 H 100 08/01/17 23:35 08/01/17 23:35 08/01/17 23:35 08/01/17 23:35 08/01/17 23:35 Intake & Output 07/31/17 08/01/17 08/02/17 06:59 06:59 06:59 Intake Total 2762 6 1262 Balance 2762 6 1262 Weight 66.5 kg 66.5 kg 64.6 kg General appearance: PRESENT: no acute distress, well-developed, well-nourished Head exam: PRESENT: atraumatic, normocephalic Eye exam: PRESENT: conjunctiva pink, EOMI. ABSENT: scleral icterus Ear exam: PRESENT: normal external ear exam Mouth exam: PRESENT: moist, tongue midline Neck exam: ABSENT: carotid bruit, JVD, lymphadenopathy, thyromegaly Respiratory exam: PRESENT: clear to auscultation antonio. ABSENT: rales, rhonchi, wheezes Cardiovascular exam: PRESENT: RRR. ABSENT: diastolic murmur, rubs, systolic murmur Pulses: PRESENT: normal dorsalis pedis pul Vascular exam: PRESENT: normal capillary refill GI/Abdominal exam: PRESENT: normal bowel sounds, soft. ABSENT: distended, guarding, mass, organolmegaly, rebound, tenderness Rectal exam: PRESENT: deferred Extremities exam: PRESENT: full ROM. ABSENT: calf tenderness, clubbing, pedal edema Neurological exam: PRESENT: alert, awake, oriented to person, oriented to place , oriented to time, oriented to situation, CN II-XII grossly intact. ABSENT: motor sensory deficit Psychiatric exam: PRESENT: appropriate affect, normal mood. ABSENT: homicidal ideation, suicidal ideation Skin exam: PRESENT: dry, intact, warm. ABSENT: cyanosis, rash Results Laboratory Results: 07/31/17 04:30 07/31/17 04:30 Assessment & Plan - Diagnosis (1) Back pain Is this a current diagnosis for this admission?: Yes Plan: Secondary to Osteomyelitis T6-T7: Will continue current treatment. (2) Diabetes mellitus type 2 in nonobese Is this a current diagnosis for this admission?: Yes Plan: continue current treatment. (3) IVDU (intravenous drug user) Is this a current diagnosis for this admission?: Yes Plan: supportive care. (4) Osteomyelitis Is this a current diagnosis for this admission?: Yes Plan: Secondary T6-T7: Continue antibiotics. (5) Endocarditis Is this a current diagnosis for this admission?: Yes - Time Time Spent with patient: 15-24 minutes
[2017-08-02 07:29] LABS: ABSOLUTE BASOPHILS # (AUTO) 0.1 10^3/uL (0.0-0.2); ABSOLUTE EOSINOPHILS # (AUTO) 0.4 10^3/uL (0.0-0.6); ABSOLUTE LYMPHOCYTES (AUTO) 5.9 10^3/uL (0.5-4.7); ABSOLUTE MONOCYTES (AUTO) 0.8 10^3/uL (0.1-1.4); ABSOLUTE NEUT (AUTO) 6.4 10^3/uL (1.7-8.2); BASOPHILS % (AUTO) 0.4 % (0-2); EOSINOPHILS % (AUTO) 2.7 % (0-6); HEMOGLOBIN 10.7 g/dL (13.5-17.0); LYMPHOCYTES % (AUTO) 43.8 % (13-45); MEAN CORPUSCULAR HGB CONC 32.6 g/dL (32.0-36.0); MEAN CORPUSCULAR VOLUME 80 fl (80-97); MONOCYTES % (AUTO) 5.7 % (3-13); PLATELET COUNT 473 10^3/uL (150-450); RED BLOOD COUNT 4.13 10^6/uL (4.35-5.55); RED CELL DISTRIBUTION WIDTH 19.9 % (11.5-14.0); SEGMENTED NEUTROPHILS % (AUTO) 47.4 % (42-78); TOTAL CELLS COUNTED % (AUTO) 100 %; WHITE BLOOD COUNT 13.6 10^3/uL (4.0-10.5)
[2017-08-02 07:45] LABS: ALANINE AMINOTRANSFERASE 47 U/L (21-72); ALBUMIN 3.8 g/dL (3.5-5.0); ALKALINE PHOSPHATASE 137 U/L (38-126); ANION GAP 11 (5-19); ASPARTATE AMINO TRANSFERASE 36 U/L (17-59); BILIRUBIN,DIRECT 0.2 mg/dL (0.0-0.4); BILIRUBIN,TOTAL 0.2 mg/dL (0.2-1.3); BLOOD UREA NITROGEN 19 mg/dL (7-20); CALCIUM 9.7 mg/dL (8.4-10.2); CARBON DIOXIDE 27 mmol/L (22-30); CHLORIDE 103 mmol/L (98-107); GLUCOSE 116 mg/dL (75-110); POTASSIUM 4.5 mmol/L (3.6-5.0); SODIUM 141.1 mmol/L (137-145); TOTAL PROTEIN 8.8 g/dL (6.3-8.2)
[2017-08-02] MEDS: OXYCODONE HCL SR 10 MG TABLET PO SCH ×2 (09:27→21:14)
[2017-08-02] MEDS: RIFAMPIN 300 MG CAPSULE PO SCH ×2 (09:28→21:14)
[2017-08-02] MEDS: DOCUSATE SODIUM 100 MG CAPSULE PO SCH ×2 (09:54→18:04)
[2017-08-02] MEDS: PHARMACY COMMUNICATION ORDER MC SCH (10:00)
[2017-08-02] MEDS: INSULIN LISPRO 100 UNIT/ML 3 ML VIAL SUBCUT PRN ×2 (12:14→16:23)
[2017-08-02] MEDS ORDERED: OXYCODONE HCL SR 10 MG TABLET PO ONE (13:00)
--- NOTE | 2017-08-02 18:24 | PDOC PROGRESS REPORT ---
Subjective Progress Note for:: 08/02/17 Subjective:: Continues on IV antibiotics. Major complaint is mid back pain at site of known epidural abscess that was drained at [facility] on 07/23. States that current dose of exterminator oxycontin and PRN oxycodone are not helping. Fentanyl provides relief for around 1 hour. Patient states that he is not trying to abuse pain medication -- he is just very uncomfortable. Also admits that he has been more on edge, notes history of bipolar disorder that is not actively not therapy. Denies fevers, chills, CP, SOB, abdominal pain, NV. PO intake good. Fiance is in room. Reason For Visit: OSTEOMYELITIS OF T6/T7 AND EPIDURAL ABSCESS S/P Physical Exam Vital Signs: Temp Pulse Resp BP Pulse Ox 98.0 F 94 18 128/74 H 100 08/02/17 16:00 08/02/17 16:00 08/02/17 16:00 08/02/17 16:00 08/02/17 16:00 Intake & Output 08/01/17 08/02/17 08/03/17 06:59 06:59 06:59 Intake Total 2076 1262 Balance 2076 1262 Weight 66.5 kg 64.6 kg General appearance: PRESENT: cooperative, mild distress - [facility]od[facility] to pain, thin Head exam: PRESENT: normocephalic Mouth exam: PRESENT: moist Respiratory exam: PRESENT: unlabored. ABSENT: tachypnea Cardiovascular exam: PRESENT: RRR. ABSENT: tachycardia GI/Abdominal exam: PRESENT: soft. ABSENT: tenderness Musculoskeletal exam: PRESENT: tenderness - Mid back pain Neurological exam: PRESENT: alert, awake, CN II-XII grossly intact Psychiatric exam: PRESENT: appropriate affect Results Laboratory Results: 08/02/17 06:45 08/02/17 06:45 08/02/17 08/02/17 06:45 06:45 WBC 13.6 H RBC 4.13 L Hgb 10.7 L Hct 33.0 L MCV 80 MCH 26.0 L MCHC 32.6 RDW 19.9 H Plt Count 473 H Seg Neutrophils % 47.4 Lymphocytes % 43.8 Monocytes % 5.7 Eosinophils % 2.7 Basophils % 0.4 Absolute Neutrophils 6.4 Absolute Lymphocytes 5.9 H Absolute Monocytes 0.8 Absolute Eosinophils 0.4 Absolute Basophils 0.1 Sodium 141.1 Potassium 4.5 Chloride 103 Carbon Dioxide 27 Anion Gap 11 BUN 19 Creatinine 0.60 Est GFR ( Amer) > 60 Est GFR (Non-Af Amer) > 60 Glucose 116 H Calcium 9.7 Total Bilirubin 0.2 AST 36 ALT 47 Alkaline Phosphatase 137 H Total Protein 8.8 H Albumin 3.8 07/28/17 08:55 Blood Blood Culture - Final NO GROWTH IN 5 DAYS 07/28/17 09:00 Blood Blood Culture - Final NO GROWTH IN 5 DAYS Assessment & Plan - Diagnosis (1) Back pain Qualifiers: Back pain location: thoracic back pain Chronicity: acute Back pain laterality: bilateral Qualified Code(s): M54.6 - Pain in thoracic spine Is this a current diagnosis for this admission?: Yes Plan: Secondary to known T6-T7 Osteomyelitis s/p drainage - Increased Oxycontin from 10mg BID to 20mg BID, continue Percocet 5-325 * 2 tabs q6 hours PRN - Also has Fentaynl 50mcg IV q4 hours PRN which was ordered on 07/30 - As this is going to likely be a exterminator issue, Fentanyl is not a suitable option. If increased dose of Oxycontin does not help, will consider starting Methadone which will provide exterminator relief and is less addictive compared to other options (2) Osteomyelitis Qualifiers: Osteomyelitis type: subacute Osteomyelitis location: unspecified site Qualified Code(s): M86.20 - Subacute osteomyelitis, unspecified site Is this a current diagnosis for this admission?: Yes Plan: Known osteomyelitis of T6/T7 - Initial blood cultures was positive for MSSA on 07/21, subsequent cultures have been NGTD - Continue IV Vancomycin and Rifampin, likely 6 weeks however will need to discuss with ID regarding mcc management (3) IVDU (intravenous drug user) Is this a current diagnosis for this admission?: Yes Plan: Long stand history, denies recent use - Time Time Spent with patient: 15-24 minutes
[2017-08-02] MEDS: NICOTINE 14 MG/24 HR PATCH.TD24 TD SCH (20:45)
[2017-08-02] MEDS: NORMAL SALINE 10 ML SDV (SCHEDULED) IV SCH (21:14)
[2017-08-02] MEDS: LIDOCAINE 5% (700 MG) TRANSDERMAL ADH..PATCH TP SCH (21:16)
[2017-08-03] MEDS: VANCOMYCIN HCL 1,000 MG in DEXTROSE 5%-WATER 250 ML IV SCH ×3 (02:33→16:32)
[2017-08-03] MEDS: FENTANYL CITRATE INJ/PF 100 MCG/2 ML AMPUL IV PRN ×5 (03:32→20:06)
[2017-08-03] MEDS: OXYCODONE-ACETAMINOPHEN 5-325 MG TABLET PO PRN ×2 (05:34→18:52)
[2017-08-03] MEDS: DOCUSATE SODIUM 100 MG CAPSULE PO SCH ×2 (07:34→17:20)
[2017-08-03] MEDS: PHARMACY COMMUNICATION ORDER MC SCH (09:10)
[2017-08-03] MEDS: OXYCODONE HCL SR 10 MG TABLET PO SCH ×2 (09:11→21:44)
[2017-08-03] MEDS: RIFAMPIN 300 MG CAPSULE PO SCH ×2 (09:12→21:45)
[2017-08-03] MEDS: INSULIN LISPRO 100 UNIT/ML 3 ML VIAL SUBCUT PRN ×2 (09:12→21:44)
[2017-08-03] MEDS: NORMAL SALINE 10 ML SDV (SCHEDULED) IV SCH ×2 (09:12→21:44)
--- NOTE | 2017-08-03 10:11 | PDOC PROGRESS REPORT ---
Subjective Progress Note for:: 08/03/17 Subjective:: Continues on IV antibiotics. Still endorsing mid back pain and states that "I feel miserable". Denies fevers, chills, CP, SOB, abdominal pain, NV. PO intake good Reason For Visit: OSTEOMYELITIS OF T6/T7 AND EPIDURAL ABSCESS S/P Physical Exam Vital Signs: Temp Pulse Resp BP Pulse Ox 97.9 F 104 H 16 120/82 100 08/03/17 08:00 08/03/17 08:00 08/03/17 08:00 08/03/17 08:00 08/03/17 08:00 Intake & Output 08/02/17 08/03/17 08/04/17 06:59 06:59 06:59 Intake Total 1262 2750 Balance 1262 2750 Weight 64.6 kg 65.2 kg General appearance: PRESENT: no acute distress, cooperative, thin Mouth exam: PRESENT: moist Respiratory exam: PRESENT: decreased breath sounds, unlabored Cardiovascular exam: PRESENT: +S1, +S2 GI/Abdominal exam: PRESENT: soft. ABSENT: tenderness Musculoskeletal exam: PRESENT: tenderness - mid back (thoracic) along spine Neurological exam: PRESENT: alert, awake, CN II-XII grossly intact Psychiatric exam: PRESENT: appropriate affect Results Laboratory Results: 08/02/17 06:45 08/02/17 06:45 07/28/17 08:55 Blood Blood Culture - Final NO GROWTH IN 5 DAYS 07/28/17 09:00 Blood Blood Culture - Final NO GROWTH IN 5 DAYS Assessment & Plan - Diagnosis (1) Back pain Qualifiers: Back pain location: thoracic back pain Chronicity: acute Back pain laterality: bilateral Qualified Code(s): M54.6 - Pain in thoracic spine Is this a current diagnosis for this admission?: Yes Plan: Secondary to known T6-T7 Osteomyelitis s/p drainage - Continue Oxycontin 20mg BID, Percocet 5-325 * 2 tabs q6 hours PRN, Fentaynl 50mcg IV q4 hours PRN which was ordered on 07/30 - If not improved in the next 1-2 days, would start Methadone which will provide intermediate relief and is less addictive compared to other options - If back pain persists, would consider consult to ortho for evaluation +/- re- imaging. Patient does NOT appear to be re-infected at this time (2) Osteomyelitis Qualifiers: Osteomyelitis type: subacute Osteomyelitis location: unspecified site Qualified Code(s): M86.20 - Subacute osteomyelitis, unspecified site Is this a current diagnosis for this admission?: Yes Plan: Known osteomyelitis of T6/T7 - Initial blood cultures was positive for MSSA on 07/21, subsequent cultures have been NGTD - Continue IV Vancomycin and Rifampin, likely 6 weeks - Should discuss with ID regarding intermediate management, ie duration of Rifampin as there is poor/limited evidence that treatment for >4 improves outcomes (3) IVDU (intravenous drug user) Is this a current diagnosis for this admission?: Yes Plan: Long stand history of IVDU abuse, denies recent use. Patient remains motivated to stay clean. (4) Bipolar 1 disorder Is this a current diagnosis for this admission?: Yes Plan: Apparently has a long standing history of Bipolar disorder - Previously on treatment however not currently - Feels that he has "shorter fuse" lately - Amenable to discussing with psychiatry - Consult placed to psych (Dr. Domingo Cesar) - Time Time Spent with patient: 15-24 minutes
--- NOTE | 2017-08-03 14:27 | PSYCHOLOGICAL NOTE ---
Psych Note - Psych Note Psych Note: Reason for Consult:Patient has hx of bipolar disorder and previously on therapy. Amenable to psych eval. Appreciate recs Consent Permissions:none given Patient disclosed he came to [facility] because of a infection in his back. He reports that he was "being diagnosed in [place]...they are trying to figure out if he was ADHD or bipolar." Patient states that this was approximately 2007 -2009 timeframe at which time he was prescribed Klonopin. He disclosed that he has not been on Klonopin since then. Patient states that he does have difficulties with anxiety; "I have anxiety real bad... Feels like the world is closing in on me... My chest gets tight." He states that he has difficulty when he is around more than 5-10 people. Other current difficulties he describes as "popping off before I think;" because he is in so much pain and has a "short temper." When asked about history of drug use he states he has only used heroin twice because he has been in pain and thought it would help. Denies consistent IV use and states it has been for half months since he used last. Patient has not received any outpatient treatment since [place] and has no history of inpatient treatment. Patient is alert and orientated to person, place, time and circumstance. Mood is euthymic with congruent affect. Patient denies suicidal and homicidal ideation. Delusions are absent behaviors congruent with intact reality based presentation i.e. organized, linear, rational thinking. Eye contact was well- maintained. Conversational speech was within normal rate, tone and prosody. Intellectual abilities appear to be within the average range. Attention and concentration were good. Insight, judgment, impulse control are currently good. [place] Controlled Substance Report indicated the patient has not received any controlled medication prescriptions since 03/09/2016 Medication recommendations per [facility]'s contracted psychiatrist Dr. Jose MD are as follows: none Diagnosis 292.9 (F11.99) Unspecified Opioid disorder per history reported by patient ( heroin IV use) 300.00 (F41.9) Unspecified Anxiety Disorder per history reported by patient Impression/Plan: Patient disclosed he was diagnosed with "possible bipolar" and prescribed Klonipin. Research has shown the Klonipin is not a standard of practice for isolative medication in the treatment of Bipolar. Patient denies substance abuse history reporting only using heroin twice (the last time 4 and 2 months ago) for "pain management" and throwing away all of his prescription medications. Patient was last prescribed controlled medications in February of 2016. Patient has not received mental health for about 10 years, reports symptoms increase because of pain but denies symptoms being acute in nature ( ie. disrupting daily living or quality of life), it would be appropriate the the patient to receive outpatient mental health treatment so he can be followed. Patient is recommended to outpatient mental health services and to receive a substance abuse assessment. Dr. Kim was consulted on the care and management of this patient.
[2017-08-03] MEDS: NICOTINE 14 MG/24 HR PATCH.TD24 TD SCH (20:06)
[2017-08-03] MEDS: NORMAL SALINE 10 ML SDV (AFTER EACH USE) IV PRN (21:44)
[2017-08-03] MEDS: LIDOCAINE 5% (700 MG) TRANSDERMAL ADH..PATCH TP SCH (21:45)
[2017-08-04] MEDS: FENTANYL CITRATE INJ/PF 100 MCG/2 ML AMPUL IV PRN ×6 (00:22→20:39)
[2017-08-04] MEDS: OXYCODONE-ACETAMINOPHEN 5-325 MG TABLET PO PRN ×4 (01:00→19:49)
[2017-08-04] MEDS: VANCOMYCIN HCL 1,000 MG in DEXTROSE 5%-WATER 250 ML IV SCH ×3 (01:01→18:52)
[2017-08-04] MEDS: OXYCODONE HCL SR 10 MG TABLET PO SCH ×2 (10:57→21:23)
[2017-08-04] MEDS: NORMAL SALINE 10 ML SDV (SCHEDULED) IV SCH ×2 (10:59→21:23)
[2017-08-04] MEDS: RIFAMPIN 300 MG CAPSULE PO SCH ×2 (10:59→21:23)
[2017-08-04] MEDS: PHARMACY COMMUNICATION ORDER MC SCH (11:07)
[2017-08-04] MEDS: DOCUSATE SODIUM 100 MG CAPSULE PO SCH ×2 (11:07→18:53)
[2017-08-04] MEDS: INSULIN LISPRO 100 UNIT/ML 3 ML VIAL SUBCUT PRN ×2 (12:50→21:23)
--- NOTE | 2017-08-04 14:50 | PDOC PROGRESS REPORT ---
Subjective Progress Note for:: 08/04/17 Subjective:: Pt was upset about his pain medication. Reason For Visit: OSTEOMYELITIS OF T6/T7 AND EPIDURAL ABSCESS S/P Physical Exam Vital Signs: Temp Pulse Resp BP Pulse Ox 98.0 F 93 17 111/66 100 08/04/17 11:56 08/04/17 11:56 08/04/17 11:56 08/04/17 11:56 08/04/17 11:56 Intake & Output 08/03/17 08/04/17 08/05/17 06:59 06:59 06:59 Intake Total 2750 2650 Balance 2750 2650 Weight 65.2 kg 65.3 kg General appearance: PRESENT: no acute distress, well-developed, well-nourished Head exam: PRESENT: atraumatic, normocephalic Eye exam: PRESENT: conjunctiva pink, EOMI. ABSENT: scleral icterus Ear exam: PRESENT: normal external ear exam Mouth exam: PRESENT: moist, tongue midline Neck exam: ABSENT: carotid bruit, JVD, lymphadenopathy, thyromegaly Respiratory exam: PRESENT: clear to auscultation antonio. ABSENT: rales, rhonchi, wheezes Cardiovascular exam: PRESENT: RRR. ABSENT: diastolic murmur, rubs, systolic murmur Pulses: PRESENT: normal dorsalis pedis pul Vascular exam: PRESENT: normal capillary refill GI/Abdominal exam: PRESENT: normal bowel sounds, soft. ABSENT: distended, guarding, mass, organolmegaly, rebound, tenderness Rectal exam: PRESENT: deferred Extremities exam: PRESENT: full ROM. ABSENT: calf tenderness, clubbing, pedal edema Neurological exam: PRESENT: alert, awake, oriented to person, oriented to place , oriented to time, oriented to situation, CN II-XII grossly intact. ABSENT: motor sensory deficit Psychiatric exam: PRESENT: appropriate affect, normal mood. ABSENT: homicidal ideation, suicidal ideation Skin exam: PRESENT: dry, intact, warm. ABSENT: cyanosis, rash Results Laboratory Results: 08/02/17 06:45 08/02/17 06:45 Assessment & Plan - Diagnosis (1) Back pain Qualifiers: Back pain location: thoracic back pain Chronicity: acute Back pain laterality: bilateral Qualified Code(s): M54.6 - Pain in thoracic spine Is this a current diagnosis for this admission?: Yes Plan: Secondary to Osteomyelitis T6-T7: Will continue current treatment. (2) Diabetes mellitus type 2 in nonobese Is this a current diagnosis for this admission?: Yes Plan: continue current treatment. (3) IVDU (intravenous drug user) Is this a current diagnosis for this admission?: Yes Plan: supportive care. (4) Osteomyelitis Qualifiers: Osteomyelitis type: subacute Osteomyelitis location: unspecified site Qualified Code(s): M86.20 - Subacute osteomyelitis, unspecified site Is this a current diagnosis for this admission?: Yes Plan: Secondary T6-T7: Continue antibiotics. (5) Endocarditis Is this a current diagnosis for this admission?: Yes Plan: Resolved. - Time Time Spent with patient: Less than 15 minutes
[2017-08-04 18:24] LABS: VANCOMYCIN,TROUGH 18.6 ug/mL (5.0-20.0)
[2017-08-04] MEDS: NICOTINE 14 MG/24 HR PATCH.TD24 TD SCH (19:49)
[2017-08-04] MEDS: NORMAL SALINE 10 ML SDV (AFTER EACH USE) IV PRN (21:23)
[2017-08-04] MEDS: LIDOCAINE 5% (700 MG) TRANSDERMAL ADH..PATCH TP SCH (21:24)
[2017-08-05] MEDS: FENTANYL CITRATE INJ/PF 100 MCG/2 ML AMPUL IV PRN ×6 (00:19→21:49)
[2017-08-05] MEDS: VANCOMYCIN HCL 1,000 MG in DEXTROSE 5%-WATER 250 ML IV SCH ×2 (01:27→09:37)
[2017-08-05] MEDS: OXYCODONE-ACETAMINOPHEN 5-325 MG TABLET PO PRN ×4 (01:27→19:50)
[2017-08-05] MEDS: OXYCODONE HCL SR 10 MG TABLET PO SCH ×2 (09:38→21:48)
[2017-08-05] MEDS: NORMAL SALINE 10 ML SDV (SCHEDULED) IV SCH ×2 (09:38→21:48)
[2017-08-05] MEDS: RIFAMPIN 300 MG CAPSULE PO SCH ×2 (09:38→21:48)
[2017-08-05] MEDS: PHARMACY COMMUNICATION ORDER MC SCH (09:41)
[2017-08-05] MEDS: DOCUSATE SODIUM 100 MG CAPSULE PO SCH ×2 (09:41→17:02)
--- NOTE | 2017-08-05 11:32 | PDOC PROGRESS REPORT ---
Subjective Progress Note for:: 08/05/17 Subjective:: Pt states that he would like to get out of the hospital. Pt states that he has nothing to do here. Pt states that he has been up ambulating the hallway. Reason For Visit: OSTEOMYELITIS OF T6/T7 AND EPIDURAL ABSCESS S/P Physical Exam Vital Signs: Temp Pulse Resp BP Pulse Ox 98.2 F 99 16 120/75 100 08/05/17 07:49 08/05/17 07:49 08/05/17 07:49 08/05/17 07:49 08/05/17 07:49 Intake & Output 08/04/17 08/05/17 08/06/17 06:59 06:59 06:59 Intake Total 2650 2190 Balance 2650 2190 Weight 65.3 kg 66.3 kg General appearance: PRESENT: no acute distress, thin, well-developed Head exam: PRESENT: atraumatic, normocephalic Eye exam: PRESENT: conjunctiva pink, EOMI. ABSENT: scleral icterus Ear exam: PRESENT: normal external ear exam Mouth exam: PRESENT: moist, tongue midline Neck exam: ABSENT: carotid bruit, JVD, lymphadenopathy, thyromegaly Respiratory exam: PRESENT: clear to auscultation antonio. ABSENT: rales, rhonchi, wheezes Cardiovascular exam: PRESENT: RRR. ABSENT: diastolic murmur, rubs, systolic murmur Pulses: PRESENT: normal dorsalis pedis pul Vascular exam: PRESENT: normal capillary refill GI/Abdominal exam: PRESENT: normal bowel sounds, soft. ABSENT: distended, guarding, mass, organolmegaly, rebound, tenderness Rectal exam: PRESENT: deferred Extremities exam: PRESENT: full ROM. ABSENT: calf tenderness, clubbing, pedal edema Musculoskeletal exam: PRESENT: full ROM Neurological exam: PRESENT: alert, awake, oriented to person, oriented to place , oriented to time, oriented to situation, CN II-XII grossly intact. ABSENT: motor sensory deficit Psychiatric exam: PRESENT: appropriate affect, normal mood. ABSENT: homicidal ideation, suicidal ideation Skin exam: PRESENT: dry, intact, warm. ABSENT: cyanosis, rash Results Laboratory Results: 08/02/17 06:45 08/04/17 17:50 08/04/17 17:50 Creatinine 0.59 Est GFR ( Amer) > 60 Est GFR (Non-Af Amer) > 60 Assessment & Plan - Diagnosis (1) Back pain Qualifiers: Back pain location: thoracic back pain Chronicity: acute Back pain laterality: bilateral Qualified Code(s): M54.6 - Pain in thoracic spine Is this a current diagnosis for this admission?: Yes Plan: Secondary to Osteomyelitis T6-T7: Will continue current treatment. (2) Diabetes mellitus type 2 in nonobese Is this a current diagnosis for this admission?: Yes Plan: continue current treatment. (3) IVDU (intravenous drug user) Is this a current diagnosis for this admission?: Yes Plan: supportive care. (4) Osteomyelitis Qualifiers: Osteomyelitis type: subacute Osteomyelitis location: unspecified site Qualified Code(s): M86.20 - Subacute osteomyelitis, unspecified site Is this a current diagnosis for this admission?: Yes Plan: Secondary T6-T7: Continue antibiotics. (5) Endocarditis Is this a current diagnosis for this admission?: Yes Plan: Resolved.
[2017-08-05] MEDS: NORMAL SALINE 10 ML SDV (AFTER EACH USE) IV PRN (12:18)
[2017-08-05] MEDS: NICOTINE 14 MG/24 HR PATCH.TD24 TD SCH (19:51)
[2017-08-05] MEDS: ZOLPIDEM TARTRATE 5 MG TABLET PO PRN (21:48)
[2017-08-05] MEDS: LIDOCAINE 5% (700 MG) TRANSDERMAL ADH..PATCH TP SCH (21:48)
[2017-08-06] MEDS: OXYCODONE-ACETAMINOPHEN 5-325 MG TABLET PO PRN ×4 (02:28→21:40)
[2017-08-06] MEDS: FENTANYL CITRATE INJ/PF 100 MCG/2 ML AMPUL IV PRN ×6 (02:29→23:00)
[2017-08-06 07:12] LABS: ABSOLUTE EOSINOPHILS # (AUTO) 0.2 10^3/uL (0.0-0.6); ABSOLUTE LYMPHOCYTES (AUTO) 4.3 10^3/uL (0.5-4.7); ABSOLUTE MONOCYTES (AUTO) 0.7 10^3/uL (0.1-1.4); ABSOLUTE NEUT (AUTO) 5.2 10^3/uL (1.7-8.2); BASOPHILS % (AUTO) 0.4 % (0-2); EOSINOPHILS % (AUTO) 2.4 % (0-6); HEMATOCRIT 32.1 % (37.9-51.0); HEMOGLOBIN 10.6 g/dL (13.5-17.0); MEAN CORPUSCULAR HEMOGLOBIN 26.9 pg (27.0-33.4); MEAN CORPUSCULAR VOLUME 82 fl (80-97); MONOCYTES % (AUTO) 6.9 % (3-13); PLATELET COUNT 344 10^3/uL (150-450); RED BLOOD COUNT 3.94 10^6/uL (4.35-5.55); RED CELL DISTRIBUTION WIDTH 21.5 % (11.5-14.0); SEGMENTED NEUTROPHILS % (AUTO) 49.3 % (42-78); TOTAL CELLS COUNTED % (AUTO) 100 %; WHITE BLOOD COUNT 10.5 10^3/uL (4.0-10.5)
[2017-08-06 07:37] LABS: ALANINE AMINOTRANSFERASE 42 U/L (21-72); ALBUMIN 3.9 g/dL (3.5-5.0); ALKALINE PHOSPHATASE 134 U/L (38-126); ANION GAP 11 (5-19); ASPARTATE AMINO TRANSFERASE 30 U/L (17-59); BILIRUBIN,DIRECT 0.1 mg/dL (0.0-0.4); BILIRUBIN,TOTAL 0.2 mg/dL (0.2-1.3); BLOOD UREA NITROGEN 16 mg/dL (7-20); CALCIUM 9.9 mg/dL (8.4-10.2); CARBON DIOXIDE 28 mmol/L (22-30); CHLORIDE 101 mmol/L (98-107); GLUCOSE 142 mg/dL (75-110); POTASSIUM 4.3 mmol/L (3.6-5.0); SODIUM 140.2 mmol/L (137-145); TOTAL PROTEIN 8.2 g/dL (6.3-8.2)
[2017-08-06] MEDS: OXYCODONE HCL SR 10 MG TABLET PO SCH ×2 (09:49→21:41)
[2017-08-06] MEDS: NORMAL SALINE 10 ML SDV (SCHEDULED) IV SCH ×2 (09:49→21:41)
[2017-08-06] MEDS: PHARMACY COMMUNICATION ORDER MC SCH (09:50)
[2017-08-06] MEDS: DOCUSATE SODIUM 100 MG CAPSULE PO SCH ×2 (09:50→17:07)
--- NOTE | 2017-08-06 13:33 | PDOC PROGRESS REPORT ---
Subjective Progress Note for:: 08/06/17 Subjective:: No significant change. He continues to ambulate in the halls. He continues to complain of pain in the back and the medications he is on are not helping. He denies any fever or chills, nausea or vomiting, diarrhea, headaches, dizziness, fatigue, weakness. He does have chronic knee pain and has been operated on X2 Reason For Visit: OSTEOMYELITIS OF T6/T7 AND EPIDURAL ABSCESS S/P Physical Exam Vital Signs: Temp Pulse Resp BP Pulse Ox 97.8 F 91 16 114/64 100 08/06/17 12:17 08/06/17 12:17 08/06/17 12:17 08/06/17 12:17 08/06/17 12:17 Intake & Output 08/05/17 08/06/17 08/07/17 06:59 06:59 06:59 Intake Total 2190 1610 Balance 2190 1610 Weight 66.3 kg General appearance: PRESENT: no acute distress, well-developed, well-nourished Head exam: PRESENT: atraumatic, normocephalic Neck exam: ABSENT: carotid bruit, JVD, lymphadenopathy, thyromegaly Respiratory exam: PRESENT: clear to auscultation antonio. ABSENT: rales, rhonchi, wheezes Cardiovascular exam: PRESENT: RRR. ABSENT: diastolic murmur, rubs, systolic murmur Pulses: PRESENT: normal dorsalis pedis pul Vascular exam: PRESENT: normal capillary refill GI/Abdominal exam: PRESENT: normal bowel sounds, soft. ABSENT: distended, guarding, mass, organolmegaly, rebound, tenderness Extremities exam: PRESENT: full ROM. ABSENT: calf tenderness, clubbing, pedal edema Neurological exam: PRESENT: alert, awake, oriented to person, oriented to place , oriented to time, oriented to situation, CN II-XII grossly intact. ABSENT: motor sensory deficit Skin exam: PRESENT: dry, intact, warm. ABSENT: cyanosis, rash Results Laboratory Results: 08/06/17 06:35 08/06/17 06:35 08/06/17 08/06/17 06:35 06:35 WBC 10.5 RBC 3.94 L Hgb 10.6 L Hct 32.1 L MCV 82 MCH 26.9 L MCHC 33.0 RDW 21.5 H Plt Count 344 Seg Neutrophils % 49.3 Lymphocytes % 41.0 Monocytes % 6.9 Eosinophils % 2.4 Basophils % 0.4 Absolute Neutrophils 5.2 Absolute Lymphocytes 4.3 Absolute Monocytes 0.7 Absolute Eosinophils 0.2 Absolute Basophils 0.0 Sodium 140.2 Potassium 4.3 Chloride 101 Carbon Dioxide 28 Anion Gap 11 BUN 16 Creatinine 0.57 Est GFR ( Amer) > 60 Est GFR (Non-Af Amer) > 60 Glucose 142 H Calcium 9.9 Magnesium 2.0 Total Bilirubin 0.2 AST 30 ALT 42 Alkaline Phosphatase 134 H Total Protein 8.2 Albumin 3.9 Assessment & Plan - Diagnosis (1) Back pain Qualifiers: Back pain location: thoracic back pain Chronicity: acute Back pain laterality: bilateral Qualified Code(s): M54.6 - Pain in thoracic spine Is this a current diagnosis for this admission?: Yes Plan: secondary to abscess, continue antibiotics. will need a total of 6 weeks of ABX and then reimaging (2) Diabetes mellitus type 2 in nonobese Is this a current diagnosis for this admission?: Yes Plan: glucose is currently acceptable. will monitor and continue current regiment (3) IVDU (intravenous drug user) Is this a current diagnosis for this admission?: Yes Plan: encouraged to quit. (4) Osteomyelitis Qualifiers: Osteomyelitis type: subacute Osteomyelitis location: unspecified site Qualified Code(s): M86.20 - Subacute osteomyelitis, unspecified site Is this a current diagnosis for this admission?: Yes Plan: continue current antibiotics and imaging plan. T6-T7 cause for back pain - Time Time Spent with patient: 25-34 minutes Medications reviewed and adjusted accordingly: Yes Anticipated discharge: Home Within: Other - after completion of ABX course - Inpatient Certification Based on my medical assessment, after consideration of the patient's comorbidities, presenting symptoms, or acuity I expect that the services needed warrant INPATIENT care.: Yes I certify that my determination is in accordance with my understanding of Medicare's requirements for reasonable and necessary INPATIENT services [42 CFR 412.3e].: Yes Medical Necessity: Need for IV Antibiotics
[2017-08-06] MEDS: RIFAMPIN 300 MG CAPSULE PO SCH ×2 (15:20→21:40)
[2017-08-06] MEDS: VANCOMYCIN HCL 1,000 MG in DEXTROSE 5%-WATER 250 ML IV SCH ×2 (15:25→21:41)
[2017-08-06] MEDS: NICOTINE 14 MG/24 HR PATCH.TD24 TD SCH (20:31)
[2017-08-06] MEDS: NORMAL SALINE 10 ML SDV (AFTER EACH USE) IV PRN (21:41)
[2017-08-06] MEDS: LIDOCAINE 5% (700 MG) TRANSDERMAL ADH..PATCH TP SCH (21:42)
[2017-08-07] MEDS: FENTANYL CITRATE INJ/PF 100 MCG/2 ML AMPUL IV PRN ×6 (03:00→23:43)
[2017-08-07] MEDS: OXYCODONE-ACETAMINOPHEN 5-325 MG TABLET PO PRN ×2 (03:49→18:19)
[2017-08-07] MEDS: VANCOMYCIN HCL 1,000 MG in DEXTROSE 5%-WATER 250 ML IV SCH ×3 (05:18→21:42)
[2017-08-07] MEDS: DOCUSATE SODIUM 100 MG CAPSULE PO SCH ×2 (10:15→18:18)
[2017-08-07] MEDS: OXYCODONE HCL SR 10 MG TABLET PO SCH ×2 (11:34→21:42)
[2017-08-07] MEDS: NORMAL SALINE 10 ML SDV (SCHEDULED) IV SCH ×2 (11:37→21:42)
[2017-08-07] MEDS: RIFAMPIN 300 MG CAPSULE PO SCH ×2 (11:37→21:42)
[2017-08-07] MEDS: PHARMACY COMMUNICATION ORDER MC SCH (12:38)
--- NOTE | 2017-08-07 14:29 | PDOC PROGRESS REPORT ---
Subjective Progress Note for:: 08/07/17 Subjective:: No new issues. Reason For Visit: OSTEOMYELITIS OF T6/T7 AND EPIDURAL ABSCESS S/P Physical Exam Vital Signs: Temp Pulse Resp BP Pulse Ox 98.1 F 88 14 130/74 H 100 08/06/17 23:46 08/06/17 23:46 08/06/17 23:46 08/06/17 23:46 08/06/17 23:46 Intake & Output 08/06/17 08/07/17 08/08/17 06:59 06:59 06:59 Intake Total 1610 2520 Balance 1610 2520 General appearance: PRESENT: no acute distress, thin, well-developed Head exam: PRESENT: atraumatic, normocephalic Eye exam: PRESENT: conjunctiva pink, EOMI. ABSENT: scleral icterus Ear exam: PRESENT: normal external ear exam Mouth exam: PRESENT: moist, tongue midline Neck exam: ABSENT: carotid bruit, JVD, lymphadenopathy, thyromegaly Respiratory exam: PRESENT: clear to auscultation antonio. ABSENT: rales, rhonchi, wheezes Cardiovascular exam: PRESENT: RRR. ABSENT: diastolic murmur, rubs, systolic murmur Pulses: PRESENT: normal dorsalis pedis pul Vascular exam: PRESENT: normal capillary refill GI/Abdominal exam: PRESENT: normal bowel sounds, soft. ABSENT: distended, guarding, mass, organolmegaly, rebound, tenderness Rectal exam: PRESENT: deferred Extremities exam: PRESENT: full ROM. ABSENT: calf tenderness, clubbing, pedal edema Musculoskeletal exam: PRESENT: full ROM Neurological exam: PRESENT: alert, awake, oriented to person, oriented to place , oriented to time, oriented to situation, CN II-XII grossly intact. ABSENT: motor sensory deficit Psychiatric exam: PRESENT: appropriate affect, normal mood. ABSENT: homicidal ideation, suicidal ideation Skin exam: PRESENT: dry, intact, warm. ABSENT: cyanosis, rash Results Laboratory Results: 08/06/17 06:35 08/06/17 06:35 Assessment & Plan - Diagnosis (1) Back pain Qualifiers: Back pain location: thoracic back pain Chronicity: acute Back pain laterality: bilateral Qualified Code(s): M54.6 - Pain in thoracic spine Is this a current diagnosis for this admission?: Yes Plan: Secondary to Osteomyelitis T6-T7: Will continue current treatment. (2) Diabetes mellitus type 2 in nonobese Is this a current diagnosis for this admission?: Yes Plan: continue current treatment. (3) IVDU (intravenous drug user) Is this a current diagnosis for this admission?: Yes Plan: supportive care. (4) Osteomyelitis Qualifiers: Osteomyelitis type: subacute Osteomyelitis location: unspecified site Qualified Code(s): M86.20 - Subacute osteomyelitis, unspecified site Is this a current diagnosis for this admission?: Yes Plan: Secondary T6-T7: Continue antibiotics. (5) Endocarditis Is this a current diagnosis for this admission?: Yes Plan: Resolved. - Time Time Spent with patient: 15-24 minutes
[2017-08-07] MEDS: NICOTINE 14 MG/24 HR PATCH.TD24 TD SCH (21:43)
[2017-08-07] MEDS: NORMAL SALINE 10 ML SDV (AFTER EACH USE) IV PRN (21:43)
[2017-08-07] MEDS: LIDOCAINE 5% (700 MG) TRANSDERMAL ADH..PATCH TP SCH (21:43)
[2017-08-08] MEDS: OXYCODONE-ACETAMINOPHEN 5-325 MG TABLET PO PRN ×3 (02:16→18:30)
[2017-08-08] MEDS: FENTANYL CITRATE INJ/PF 100 MCG/2 ML AMPUL IV PRN ×5 (03:46→20:51)
[2017-08-08] MEDS: VANCOMYCIN HCL 1,000 MG in DEXTROSE 5%-WATER 250 ML IV SCH ×3 (05:29→21:46)
[2017-08-08 05:40] LABS: ABSOLUTE EOSINOPHILS # (AUTO) 0.2 10^3/uL (0.0-0.6); ABSOLUTE LYMPHOCYTES (AUTO) 4.2 10^3/uL (0.5-4.7); ABSOLUTE MONOCYTES (AUTO) 0.7 10^3/uL (0.1-1.4); ABSOLUTE NEUT (AUTO) 4.4 10^3/uL (1.7-8.2); BASOPHILS % (AUTO) 0.5 % (0-2); EOSINOPHILS % (AUTO) 2.2 % (0-6); HEMOGLOBIN 10.1 g/dL (13.5-17.0); LYMPHOCYTES % (AUTO) 43.9 % (13-45); MEAN CORPUSCULAR HEMOGLOBIN 26.5 pg (27.0-33.4); MEAN CORPUSCULAR HGB CONC 32.5 g/dL (32.0-36.0); MEAN CORPUSCULAR VOLUME 82 fl (80-97); MONOCYTES % (AUTO) 7.4 % (3-13); PLATELET COUNT 341 10^3/uL (150-450); RED CELL DISTRIBUTION WIDTH 21.9 % (11.5-14.0); TOTAL CELLS COUNTED % (AUTO) 100 %; WHITE BLOOD COUNT 9.6 10^3/uL (4.0-10.5)
[2017-08-08 06:04] LABS: ALANINE AMINOTRANSFERASE 42 U/L (21-72); ALBUMIN 3.8 g/dL (3.5-5.0); ALKALINE PHOSPHATASE 122 U/L (38-126); ANION GAP 10 (5-19); ASPARTATE AMINO TRANSFERASE 27 U/L (17-59); BILIRUBIN,DIRECT 0.1 mg/dL (0.0-0.4); BILIRUBIN,TOTAL 0.1 mg/dL (0.2-1.3); BLOOD UREA NITROGEN 16 mg/dL (7-20); CALCIUM 9.5 mg/dL (8.4-10.2); CARBON DIOXIDE 30 mmol/L (22-30); CHLORIDE 100 mmol/L (98-107); GLUCOSE 206 mg/dL (75-110); POTASSIUM 4.1 mmol/L (3.6-5.0); SODIUM 140.2 mmol/L (137-145)
[2017-08-08] MEDS: DOCUSATE SODIUM 100 MG CAPSULE PO SCH ×2 (09:26→17:51)
[2017-08-08] MEDS: OXYCODONE HCL SR 10 MG TABLET PO SCH ×2 (09:33→21:46)
[2017-08-08] MEDS: NORMAL SALINE 10 ML SDV (SCHEDULED) IV SCH ×2 (09:33→21:46)
[2017-08-08] MEDS: RIFAMPIN 300 MG CAPSULE PO SCH ×2 (12:36→21:46)
--- NOTE | 2017-08-08 15:01 | PDOC PROGRESS REPORT ---
Subjective Progress Note for:: 08/08/17 Subjective:: Admitted with back pain Reason For Visit: OSTEOMYELITIS OF T6/T7 AND EPIDURAL ABSCESS S/P Physical Exam Vital Signs: Temp Pulse Resp BP Pulse Ox 97.8 F 93 16 110/68 100 08/07/17 23:54 08/07/17 23:54 08/07/17 23:54 08/07/17 23:54 08/07/17 23:54 Intake & Output 08/07/17 08/08/17 08/09/17 06:59 06:59 06:59 Intake Total 2520 2252 Balance 2520 2252 Weight 61.8 kg General appearance: PRESENT: no acute distress, thin Head exam: PRESENT: atraumatic Eye exam: PRESENT: conjunctiva pink, EOMI, PERRLA. ABSENT: scleral icterus Ear exam: PRESENT: bleeding Neck exam: ABSENT: carotid bruit, JVD, lymphadenopathy, thyromegaly Respiratory exam: PRESENT: clear to auscultation antonio. ABSENT: rales, rhonchi, wheezes Cardiovascular exam: PRESENT: RRR. ABSENT: diastolic murmur, rubs, systolic murmur GI/Abdominal exam: PRESENT: normal bowel sounds, soft. ABSENT: distended, guarding, mass, organolmegaly, rebound, tenderness Rectal exam: PRESENT: deferred Extremities exam: PRESENT: full ROM. ABSENT: calf tenderness, clubbing, pedal edema Neurological exam: PRESENT: alert, awake, oriented to person, oriented to place , oriented to time, oriented to situation, CN II-XII grossly intact. ABSENT: motor sensory deficit Results Laboratory Results: 08/08/17 05:26 08/08/17 05:26 08/08/17 08/08/17 05:26 05:26 WBC 9.6 RBC 3.80 L Hgb 10.1 L Hct 31.0 L MCV 82 MCH 26.5 L MCHC 32.5 RDW 21.9 H Plt Count 341 Seg Neutrophils % 46.0 Lymphocytes % 43.9 Monocytes % 7.4 Eosinophils % 2.2 Basophils % 0.5 Absolute Neutrophils 4.4 Absolute Lymphocytes 4.2 Absolute Monocytes 0.7 Absolute Eosinophils 0.2 Absolute Basophils 0.0 Sodium 140.2 Potassium 4.1 Chloride 100 Carbon Dioxide 30 Anion Gap 10 BUN 16 Creatinine 0.59 Est GFR ( Amer) > 60 Est GFR (Non-Af Amer) > 60 Glucose 206 H Calcium 9.5 Magnesium 1.9 Total Bilirubin 0.1 L AST 27 ALT 42 Alkaline Phosphatase 122 Total Protein 8.0 Albumin 3.8 Assessment & Plan - Time Time Spent with patient: 15-24 minutes Anticipated discharge: Home - Inpatient Certification Based on my medical assessment, after consideration of the patient's comorbidities, presenting symptoms, or acuity I expect that the services needed warrant INPATIENT care.: Yes Medical Necessity: Need for IV Antibiotics - Plan Summary Plan Summary: Back pain secondary to osteomyelitis T6-T7. He is on vancomycin and rifampin. Will need to define because of antibiotic treatment. Repeat blood cultures will be obtained in a.m. His lab blood culture was on July 28 and this was negative and prior to that he had blood cultures positive on July 21. 2. Type 2 diabetes mellitus continue current management 3. IV drug abuse for supportive management 4. Osteomyelitis of T6-T7 5. Endocarditis resolved
[2017-08-08] MEDS: PHARMACY COMMUNICATION ORDER MC SCH (15:13)
--- NOTE | 2017-08-08 15:29 | Progress Note ---
Provider Note Provider Note: ID Consult Note Asked to review patient's chart by Pharmacy. 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 He finished treatment for this in June 2017. He returned approximately 1 month or less later with MSSA bacteremia and T6-T7 vertebral osteomyelitis with associated epidural abscess that was drained in [facility]. The patient was then transferred back to [place]. He is currently on vancomycin and rifampin. Repeat blood cultures are negative. TTE on 07/28/17 did not visualize any vegetations. Impression/Recommendations MSSA bacteremia, T6-T7 vertebral osteomyelitis, and epidural abscess s/p drainage - Unclear if this is relapse or reinfection due to continued risk with IV drug use. - Recommend discontinuing vancomycin and treating the patient instead with IV cefazolin. Outcomes for MSSA bacteremia are better when patients are able to be treated with beta-lactam antibiotics than with vancomycin. Continue rifampin along with cefazolin. Recommend treating the patient for 6 weeks starting from the date of negative blood cultures. - Consider obtaining DOMINGO to further evaluate the patient's valves. Although TTE was negative, the sensitivity is generally not as great for TTE than DOMINGO. Huy Narvaez MD, pager [phone]
[2017-08-08] MEDS: NORMAL SALINE 10 ML SDV (AFTER EACH USE) IV PRN (21:47)
[2017-08-08] MEDS: LIDOCAINE 5% (700 MG) TRANSDERMAL ADH..PATCH TP SCH (21:47)
[2017-08-08] MEDS: NICOTINE 14 MG/24 HR PATCH.TD24 TD SCH (21:47)
[2017-08-09] MEDS: FENTANYL CITRATE INJ/PF 100 MCG/2 ML AMPUL IV PRN ×6 (00:54→23:41)
[2017-08-09] MEDS: OXYCODONE-ACETAMINOPHEN 5-325 MG TABLET PO PRN ×4 (05:33→21:36)
[2017-08-09] MEDS: VANCOMYCIN HCL 1,000 MG in DEXTROSE 5%-WATER 250 ML IV SCH (05:33)
[2017-08-09] MEDS: DOCUSATE SODIUM 100 MG CAPSULE PO SCH ×2 (11:30→17:35)
[2017-08-09] MEDS: OXYCODONE HCL SR 10 MG TABLET PO SCH ×2 (11:43→21:36)
[2017-08-09] MEDS: RIFAMPIN 300 MG CAPSULE PO SCH ×2 (11:49→21:36)
[2017-08-09] MEDS: NORMAL SALINE 10 ML SDV (SCHEDULED) IV SCH ×2 (11:49→21:36)
[2017-08-09] MEDS: PHARMACY COMMUNICATION ORDER MC SCH (11:52)
--- NOTE | 2017-08-09 16:47 | PDOC PROGRESS REPORT ---
Subjective Progress Note for:: 08/09/17 Subjective:: Recent history of tricuspid valve endocarditis secondary to MSSA in April 2017 that was treated with IV daptomycin completed in June 2017. He returned a month later with MSSA bacteremia and T6-T7 vertebral osteomyelitis with associated epidural abscess that was drained in [facility]. Reviewing IDs recommendation for vancomycin to be switched to Ancef order so this has been ordered. Consideration for continuous IV Ancef therapy may be done however due to patient's IVDA he will have to stay in hospital throughout the course of his treatment. Patient still complaining of back pain. Reason For Visit: OSTEOMYELITIS OF T6/T7 AND EPIDURAL ABSCESS S/P Physical Exam Vital Signs: Temp Pulse Resp BP Pulse Ox 98.1 F 91 18 116/71 99 08/09/17 11:41 08/09/17 11:41 08/09/17 11:41 08/09/17 11:41 08/09/17 11:41 Intake & Output 08/08/17 08/09/17 08/10/17 06:59 06:59 06:59 Intake Total 2252 2297 Balance 2252 2297 Weight 61.8 kg 67.2 kg General appearance: PRESENT: no acute distress, thin Head exam: PRESENT: atraumatic Eye exam: PRESENT: conjunctiva pink, EOMI, PERRLA. ABSENT: scleral icterus Ear exam: PRESENT: normal external ear exam Neck exam: ABSENT: carotid bruit, JVD, lymphadenopathy, thyromegaly Respiratory exam: PRESENT: clear to auscultation antonio. ABSENT: rales, rhonchi, wheezes Cardiovascular exam: PRESENT: RRR. ABSENT: diastolic murmur, rubs, systolic murmur Pulses: PRESENT: normal dorsalis pedis pul GI/Abdominal exam: PRESENT: normal bowel sounds, soft. ABSENT: distended, guarding, mass, organolmegaly, rebound, tenderness Rectal exam: PRESENT: deferred Neurological exam: PRESENT: alert, awake, oriented to person, oriented to place , oriented to time, oriented to situation, CN II-XII grossly intact. ABSENT: motor sensory deficit Results Laboratory Results: 08/08/17 05:26 Assessment & Plan - Time Time Spent with patient: 15-24 minutes Medications reviewed and adjusted accordingly: Yes Anticipated discharge: Home Within: Other - When antibiotics completed - Inpatient Certification Based on my medical assessment, after consideration of the patient's comorbidities, presenting symptoms, or acuity I expect that the services needed warrant INPATIENT care.: Yes Medical Necessity: Need for IV Antibiotics - Plan Summary Plan Summary: 1.Back pain secondary to osteomyelitis T6-T7. He is on vancomycin and rifampin. Will need to define because of antibiotic treatment. Repeat blood cultures done today. His lab blood culture was on July 28 and this was negative and prior to that he had blood cultures positive on July 21. he will need 6 weeks treatment from 07/28 if BC from today is negative 2. Type 2 diabetes mellitus continue current management. And has been refusing sliding scale insulin and he does not want to be on any basal medications at this time I did have a long discussion with him and his girlfriend regarding his general well-being as well as his diabetes status 3. IV drug abuse for supportive management 4. Osteomyelitis of T6-T7 5. Endocarditis resolved. Consideration for DOMINGO as per ID suggestion
[2017-08-09 16:53] LABS: VANCOMYCIN,TROUGH 15.6 ug/mL (5.0-20.0)
[2017-08-09] MEDS: CEFAZOLIN 2 GM/D5W RTU 2 GM/50 ML RTUPB IV SCH ×2 (17:48→23:41)
[2017-08-09] MEDS: NICOTINE 14 MG/24 HR PATCH.TD24 TD SCH (21:12)
[2017-08-09] MEDS: LIDOCAINE 5% (700 MG) TRANSDERMAL ADH..PATCH TP SCH (21:37)
[2017-08-10] MEDS: FENTANYL CITRATE INJ/PF 100 MCG/2 ML AMPUL IV PRN ×5 (03:56→22:23)
[2017-08-10] MEDS: CEFAZOLIN 2 GM/D5W RTU 2 GM/50 ML RTUPB IV SCH ×3 (06:20→17:26)
[2017-08-10 07:33] LABS: ABSOLUTE BASOPHILS # (AUTO) 0.1 10^3/uL (0.0-0.2); ABSOLUTE EOSINOPHILS # (AUTO) 0.2 10^3/uL (0.0-0.6); ABSOLUTE LYMPHOCYTES (AUTO) 4.3 10^3/uL (0.5-4.7); ABSOLUTE MONOCYTES (AUTO) 0.7 10^3/uL (0.1-1.4); ABSOLUTE NEUT (AUTO) 5.1 10^3/uL (1.7-8.2); BASOPHILS % (AUTO) 0.6 % (0-2); EOSINOPHILS % (AUTO) 2.3 % (0-6); HEMATOCRIT 31.9 % (37.9-51.0); HEMOGLOBIN 10.5 g/dL (13.5-17.0); LYMPHOCYTES % (AUTO) 41.3 % (13-45); MEAN CORPUSCULAR HEMOGLOBIN 26.8 pg (27.0-33.4); MEAN CORPUSCULAR HGB CONC 32.8 g/dL (32.0-36.0); MEAN CORPUSCULAR VOLUME 82 fl (80-97); MONOCYTES % (AUTO) 6.7 % (3-13); PLATELET COUNT 355 10^3/uL (150-450); SEGMENTED NEUTROPHILS % (AUTO) 49.1 % (42-78); TOTAL CELLS COUNTED % (AUTO) 100 %; WHITE BLOOD COUNT 10.5 10^3/uL (4.0-10.5)
[2017-08-10 07:51] LABS: ANION GAP 9 (5-19); BLOOD UREA NITROGEN 13 mg/dL (7-20); CALCIUM 9.6 mg/dL (8.4-10.2); CARBON DIOXIDE 29 mmol/L (22-30); CHLORIDE 102 mmol/L (98-107); GLUCOSE 116 mg/dL (75-110); POTASSIUM 4.3 mmol/L (3.6-5.0); SODIUM 140.4 mmol/L (137-145)
[2017-08-10] MEDS: OXYCODONE HCL SR 10 MG TABLET PO SCH ×2 (10:05→22:24)
[2017-08-10] MEDS: DOCUSATE SODIUM 100 MG CAPSULE PO SCH ×2 (10:05→17:27)
[2017-08-10] MEDS: RIFAMPIN 300 MG CAPSULE PO SCH ×2 (10:07→22:24)
[2017-08-10] MEDS: NORMAL SALINE 10 ML SDV (SCHEDULED) IV SCH ×2 (12:47→22:24)
[2017-08-10] MEDS: INSULIN LISPRO 100 UNIT/ML 3 ML VIAL SUBCUT PRN ×3 (12:50→22:23)
[2017-08-10] MEDS: PHARMACY COMMUNICATION ORDER MC SCH (12:56)
[2017-08-10] MEDS: OXYCODONE-ACETAMINOPHEN 5-325 MG TABLET PO PRN ×2 (14:06→20:33)
--- NOTE | 2017-08-10 17:18 | PDOC PROGRESS REPORT ---
Subjective Progress Note for:: 08/10/17 Subjective:: 47-year-old male with recent history of tricuspid valve endocarditis secondary to MSSA in April 2017 that was treated with IV daptomycin completed in June 2017. He returned a month later with MSSA bacteremia and T6-T7 vertebral osteomyelitis with associated epidural abscess that was drained at [facility]. IDs recommendation for vancomycin to be switched to Ancef and this was done 08/09/17. Patient still complains of back pain, but slowly getting better. Able to walk better and better every day. Denies fever or chills, no chest pain or shortness of breath or palpitations. Denies headache. No stiff neck or photophobia. Reason For Visit: OSTEOMYELITIS OF T6/T7 AND EPIDURAL ABSCESS S/P Physical Exam Vital Signs: Temp Pulse Resp BP Pulse Ox 98.3 F 106 H 12 118/73 100 08/10/17 15:17 08/10/17 15:17 08/10/17 15:17 08/10/17 15:17 08/10/17 15:17 Intake & Output 08/09/17 08/10/17 08/11/17 06:59 06:59 06:59 Intake Total 2297 1260 118 Balance 2297 1260 118 Weight 67.2 kg 67.2 kg GEN: NAD, well-developed, well-nourished CV: RRR, NL S1S2 LUNGS: CTA bilaterally ABDOMEN Soft, NT, +BS EXTERMITIES: No e/c/c NEURO: Alert, oriented, no mass strength extremities 4 Results Laboratory Results: 08/10/17 06:20 08/10/17 06:20 08/10/17 08/10/17 06:20 06:20 WBC 10.5 RBC 3.90 L Hgb 10.5 L Hct 31.9 L MCV 82 MCH 26.8 L MCHC 32.8 RDW 22.0 H Plt Count 355 Seg Neutrophils % 49.1 Lymphocytes % 41.3 Monocytes % 6.7 Eosinophils % 2.3 Basophils % 0.6 Absolute Neutrophils 5.1 Absolute Lymphocytes 4.3 Absolute Monocytes 0.7 Absolute Eosinophils 0.2 Absolute Basophils 0.1 Sodium 140.4 Potassium 4.3 Chloride 102 Carbon Dioxide 29 Anion Gap 9 BUN 13 Creatinine 0.51 L Est GFR ( Amer) > 60 Est GFR (Non-Af Amer) > 60 Glucose 116 H Calcium 9.6 Assessment & Plan - Diagnosis (1) Osteomyelitis Qualifiers: Osteomyelitis type: subacute Osteomyelitis location: unspecified site Qualified Code(s): M86.20 - Subacute osteomyelitis, unspecified site Is this a current diagnosis for this admission?: Yes Plan: Of T6-T7. We will continue Ancef per ID recommendation. Continue to follow culture results. Plan is for patient to receive who course of IV antibiotics in hospital due to history of IVDA. (2) Back pain Qualifiers: Back pain location: thoracic back pain Chronicity: acute Back pain laterality: bilateral Qualified Code(s): M54.6 - Pain in thoracic spine Is this a current diagnosis for this admission?: Yes Plan: Secondary to T6 through T7 osteomyelitis. Continue pain management. (3) Diabetes mellitus type 2 in nonobese Is this a current diagnosis for this admission?: Yes (4) IVDU (intravenous drug user) Is this a current diagnosis for this admission?: Yes (5) Bacteremia Is this a current diagnosis for this admission?: Yes Plan: Follow-up blood cultures negative so far. Continue to follow.
[2017-08-10] MEDS: NORMAL SALINE 10 ML SDV (AFTER EACH USE) IV PRN (17:27)
[2017-08-10] MEDS: NICOTINE 14 MG/24 HR PATCH.TD24 TD SCH (20:12)
[2017-08-10] MEDS: LIDOCAINE 5% (700 MG) TRANSDERMAL ADH..PATCH TP SCH (22:09)
[2017-08-11] MEDS: CEFAZOLIN 2 GM/D5W RTU 2 GM/50 ML RTUPB IV SCH ×4 (01:00→17:05)
[2017-08-11] MEDS: FENTANYL CITRATE INJ/PF 100 MCG/2 ML AMPUL IV PRN ×5 (02:36→21:14)
[2017-08-11] MEDS: OXYCODONE-ACETAMINOPHEN 5-325 MG TABLET PO PRN ×3 (02:37→19:19)
[2017-08-11] MEDS: INSULIN LISPRO 100 UNIT/ML 3 ML VIAL SUBCUT PRN ×2 (09:16→13:03)
[2017-08-11] MEDS: RIFAMPIN 300 MG CAPSULE PO SCH ×2 (09:18→21:14)
[2017-08-11] MEDS: OXYCODONE HCL SR 10 MG TABLET PO SCH ×2 (09:19→21:14)
[2017-08-11] MEDS: NORMAL SALINE 10 ML SDV (SCHEDULED) IV SCH ×2 (09:20→21:14)
[2017-08-11] MEDS: DOCUSATE SODIUM 100 MG CAPSULE PO SCH ×2 (09:23→17:06)
[2017-08-11] MEDS: PHARMACY COMMUNICATION ORDER MC SCH (09:23)
--- NOTE | 2017-08-11 20:39 | PDOC PROGRESS REPORT ---
Subjective Progress Note for:: 08/11/17 Subjective:: 47-year-old male with recent history of tricuspid valve endocarditis secondary to MSSA in April 2017 that was treated with IV daptomycin completed in June 2017. He returned a month later with MSSA bacteremia and T6-T7 vertebral osteomyelitis with associated epidural abscess that was drained at [facility]. IDs recommendation for vancomycin to be switched to Ancef and this was done 08/09/17. Patient still complains of back pain, states current pain medicine of working long enough. Able to walk and nurses report that goes out of the yoder frequently. Denies fever or chills, no chest pain or shortness of breath or palpitations. Denies headache. No stiff neck or photophobia. Reason For Visit: OSTEOMYELITIS OF T6/T7 AND EPIDURAL ABSCESS S/P Physical Exam Vital Signs: Temp Pulse Resp BP Pulse Ox 98.5 F 103 H 16 115/70 99 08/11/17 15:30 08/11/17 15:30 08/11/17 15:30 08/11/17 15:30 08/11/17 15:30 Intake & Output 08/10/17 08/11/17 08/12/17 06:59 06:59 06:59 Intake Total 1260 1699 573 Balance 1260 1699 573 Weight 67.2 kg 70.3 kg GEN: NAD, well-developed, well-nourished CV: RRR, NL S1S2 LUNGS: CTA bilaterally ABDOMEN Soft, NT, +BS EXTERMITIES: No e/c/c NEURO: Alert, oriented, no mass strength extremities 4 Results Laboratory Results: 08/10/17 06:20 08/10/17 06:20 Assessment & Plan - Diagnosis (1) Osteomyelitis Qualifiers: Osteomyelitis type: subacute Osteomyelitis location: unspecified site Qualified Code(s): M86.20 - Subacute osteomyelitis, unspecified site Is this a current diagnosis for this admission?: Yes Plan: Of T6-T7. We will continue Ancef per ID recommendation. Continue to follow culture results. Plan is for patient to receive who course of IV antibiotics in hospital due to history of IVDA. (2) Back pain Qualifiers: Back pain location: thoracic back pain Chronicity: acute Back pain laterality: bilateral Qualified Code(s): M54.6 - Pain in thoracic spine Is this a current diagnosis for this admission?: Yes Plan: Secondary to T6 through T7 osteomyelitis. Continue pain management. Will add Neurontin 300 mg every 8 hours. (3) Diabetes mellitus type 2 in nonobese Is this a current diagnosis for this admission?: Yes (4) IVDU (intravenous drug user) Is this a current diagnosis for this admission?: Yes (5) Bacteremia Is this a current diagnosis for this admission?: Yes Plan: Follow-up blood cultures negative so far. Continue to follow.
[2017-08-11] MEDS: NICOTINE 14 MG/24 HR PATCH.TD24 TD SCH (21:03)
[2017-08-11] MEDS: LIDOCAINE 5% (700 MG) TRANSDERMAL ADH..PATCH TP SCH (21:15)
[2017-08-11] MEDS: GABAPENTIN 300 MG CAPSULE PO SCH (23:26)
[2017-08-12] MEDS: CEFAZOLIN 2 GM/D5W RTU 2 GM/50 ML RTUPB IV SCH ×5 (00:51→23:38)
[2017-08-12] MEDS: OXYCODONE-ACETAMINOPHEN 5-325 MG TABLET PO PRN ×4 (01:43→20:22)
[2017-08-12] MEDS: FENTANYL CITRATE INJ/PF 100 MCG/2 ML AMPUL IV PRN ×6 (01:43→22:41)
[2017-08-12] MEDS: GABAPENTIN 300 MG CAPSULE PO SCH ×3 (06:44→22:41)
[2017-08-12 09:12] LABS: ABSOLUTE BASOPHILS # (AUTO) 0.1 10^3/uL (0.0-0.2); ABSOLUTE EOSINOPHILS # (AUTO) 0.3 10^3/uL (0.0-0.6); ABSOLUTE LYMPHOCYTES (AUTO) 4.5 10^3/uL (0.5-4.7); ABSOLUTE MONOCYTES (AUTO) 0.8 10^3/uL (0.1-1.4); ABSOLUTE NEUT (AUTO) 5.4 10^3/uL (1.7-8.2); BASOPHILS % (AUTO) 0.7 % (0-2); EOSINOPHILS % (AUTO) 2.9 % (0-6); HEMATOCRIT 34.5 % (37.9-51.0); HEMOGLOBIN 11.4 g/dL (13.5-17.0); LYMPHOCYTES % (AUTO) 40.5 % (13-45); MEAN CORPUSCULAR VOLUME 82 fl (80-97); MONOCYTES % (AUTO) 6.8 % (3-13); PLATELET COUNT 377 10^3/uL (150-450); RED CELL DISTRIBUTION WIDTH 22.1 % (11.5-14.0); SEGMENTED NEUTROPHILS % (AUTO) 49.1 % (42-78); TOTAL CELLS COUNTED % (AUTO) 100 %; WHITE BLOOD COUNT 11.1 10^3/uL (4.0-10.5)
[2017-08-12 09:35] LABS: ANION GAP 12 (5-19); BLOOD UREA NITROGEN 13 mg/dL (7-20); CALCIUM 9.6 mg/dL (8.4-10.2); CARBON DIOXIDE 27 mmol/L (22-30); CHLORIDE 101 mmol/L (98-107); GLUCOSE 206 mg/dL (75-110); POTASSIUM 4.3 mmol/L (3.6-5.0); SODIUM 139.5 mmol/L (137-145)
[2017-08-12] MEDS: RIFAMPIN 300 MG CAPSULE PO SCH ×2 (09:58→22:41)
[2017-08-12] MEDS: OXYCODONE HCL SR 10 MG TABLET PO SCH ×2 (09:58→22:41)
[2017-08-12] MEDS: NORMAL SALINE 10 ML SDV (SCHEDULED) IV SCH ×2 (09:58→22:41)
[2017-08-12] MEDS: DOCUSATE SODIUM 100 MG CAPSULE PO SCH ×2 (10:00→17:30)
[2017-08-12] MEDS: PHARMACY COMMUNICATION ORDER MC SCH (10:00)
--- NOTE | 2017-08-12 14:05 | PDOC PROGRESS REPORT ---
Subjective Progress Note for:: 08/12/17 Subjective:: The patient is up ambulating about his room with his girlfriend at the bedside. He states that he is continuing to have some pain in his back but it is improving. Otherwise he denies fever chills. No chest pain, shortness of breath or cough. No nausea, vomiting or diarrhea. No dysuria, frequency or hematuria. Reason For Visit: OSTEOMYELITIS OF T6/T7 AND EPIDURAL ABSCESS S/P Physical Exam Vital Signs: Temp Pulse Resp BP Pulse Ox 97.9 F 97 16 120/75 98 08/12/17 11:48 08/12/17 11:48 08/12/17 11:48 08/12/17 11:48 08/12/17 11:48 Intake & Output 08/11/17 08/12/17 08/13/17 06:59 06:59 06:59 Intake Total 1699 1333 Balance 1699 1333 Weight 70.3 kg General appearance: PRESENT: no acute distress, disheveled, thin, well-developed Head exam: PRESENT: atraumatic, normocephalic Mouth exam: PRESENT: moist, tongue midline Respiratory exam: PRESENT: clear to auscultation antonio. ABSENT: rales, rhonchi, wheezes Cardiovascular exam: PRESENT: RRR. ABSENT: diastolic murmur, rubs, systolic murmur GI/Abdominal exam: PRESENT: normal bowel sounds, soft. ABSENT: distended, guarding, mass, organolmegaly, rebound, tenderness Rectal exam: PRESENT: deferred Extremities exam: PRESENT: full ROM. ABSENT: calf tenderness, clubbing, pedal edema Musculoskeletal exam: PRESENT: ambulatory Neurological exam: PRESENT: alert, awake, oriented to person, oriented to place , oriented to time, oriented to situation, CN II-XII grossly intact. ABSENT: motor sensory deficit Psychiatric exam: PRESENT: appropriate affect, normal mood. ABSENT: homicidal ideation, suicidal ideation Skin exam: PRESENT: dry, intact, warm. ABSENT: cyanosis, rash Results Laboratory Results: 08/12/17 08:40 08/12/17 08:40 08/12/17 08/12/17 08:40 08:40 WBC 11.1 H RBC 4.20 L Hgb 11.4 L Hct 34.5 L MCV 82 MCH 27.0 MCHC 33.0 RDW 22.1 H Plt Count 377 Seg Neutrophils % 49.1 Lymphocytes % 40.5 Monocytes % 6.8 Eosinophils % 2.9 Basophils % 0.7 Absolute Neutrophils 5.4 Absolute Lymphocytes 4.5 Absolute Monocytes 0.8 Absolute Eosinophils 0.3 Absolute Basophils 0.1 Sodium 139.5 Potassium 4.3 Chloride 101 Carbon Dioxide 27 Anion Gap 12 BUN 13 Creatinine 0.56 Est GFR ( Amer) > 60 Est GFR (Non-Af Amer) > 60 Glucose 206 H Calcium 9.6 Assessment & Plan - Diagnosis (1) Osteomyelitis Qualifiers: Osteomyelitis type: subacute Osteomyelitis location: unspecified site Qualified Code(s): M86.20 - Subacute osteomyelitis, unspecified site Is this a current diagnosis for this admission?: Yes Plan: Per infectious disease recommendations he will continue IV Ancef through September 08, 2017. He seems to be tolerating it well. (2) IVDU (intravenous drug user) Is this a current diagnosis for this admission?: Yes Plan: It is unclear if the patient has quit using or not. He states he did not use any IV drugs after he got out of the hospital. (3) Bacteremia Is this a current diagnosis for this admission?: Yes Plan: Repeat blood cultures have been negative. Continue IV Ancef. (4) Back pain Qualifiers: Back pain location: thoracic back pain Chronicity: acute Back pain laterality: bilateral Qualified Code(s): M54.6 - Pain in thoracic spine Is this a current diagnosis for this admission?: Yes Plan: Due to osteomyelitis. Improving slowly. (5) Diabetes mellitus type 2 in nonobese Is this a current diagnosis for this admission?: Yes Plan: Stable on current regimen (6) Anemia Qualifiers: Anemia type: iron deficiency Iron deficiency anemia type: inadequate dietary iron intake Qualified Code(s): D50.8 - Other iron deficiency anemias Is this a current diagnosis for this admission?: Yes Plan: Stable (7) Endocarditis Is this a current diagnosis for this admission?: Yes Plan: He was treated for this during his previous hospitalization was out of the hospital for 2 weeks. Continue IV Ancef and rifampin (8) Full code status Is this a current diagnosis for this admission?: Yes - Time Time Spent with patient: 15-24 minutes - Inpatient Certification Medical Necessity: Need for IV Antibiotics - Inpatient hospitalization remains necessary. The patient is an IV drug user and he will need to remain in the hospital for the duration of his IV antibiotics through September 08, 2017.
[2017-08-12] MEDS: NICOTINE 14 MG/24 HR PATCH.TD24 TD SCH (19:05)
[2017-08-12] MEDS: LIDOCAINE 5% (700 MG) TRANSDERMAL ADH..PATCH TP SCH (22:41)
[2017-08-13] MEDS: OXYCODONE-ACETAMINOPHEN 5-325 MG TABLET PO PRN ×4 (02:33→20:31)
[2017-08-13] MEDS: FENTANYL CITRATE INJ/PF 100 MCG/2 ML AMPUL IV PRN ×6 (03:16→23:03)
[2017-08-13] MEDS: CEFAZOLIN 2 GM/D5W RTU 2 GM/50 ML RTUPB IV SCH ×3 (06:38→18:02)
[2017-08-13] MEDS: GABAPENTIN 300 MG CAPSULE PO SCH ×3 (06:38→23:01)
[2017-08-13 07:18] LABS: ANION GAP 11 (5-19); BLOOD UREA NITROGEN 14 mg/dL (7-20); CALCIUM 9.3 mg/dL (8.4-10.2); CARBON DIOXIDE 26 mmol/L (22-30); CHLORIDE 103 mmol/L (98-107); GLUCOSE 167 mg/dL (75-110); POTASSIUM 4.2 mmol/L (3.6-5.0); SODIUM 140.4 mmol/L (137-145)
[2017-08-13] MEDS: RIFAMPIN 300 MG CAPSULE PO SCH ×2 (10:26→23:01)
[2017-08-13] MEDS: OXYCODONE HCL SR 10 MG TABLET PO SCH ×2 (10:26→23:02)
[2017-08-13] MEDS: NORMAL SALINE 10 ML SDV (SCHEDULED) IV SCH ×2 (10:26→23:03)
[2017-08-13] MEDS: PHARMACY COMMUNICATION ORDER MC SCH (10:27)
[2017-08-13] MEDS: DOCUSATE SODIUM 100 MG CAPSULE PO SCH ×2 (10:27→17:35)
--- NOTE | 2017-08-13 17:34 | PDOC PROGRESS REPORT ---
Subjective Subjective:: Likely just really which is now I scheduled on the 10th in the day over the bone is I think an increase because there are no surgical incisions I would prefer to position go admission and like they open up the cervix and then switch me to the service and my stay in 12 hours sometimes but I also like if it is a good day get out because of units not I am not doing this at this point for the extra money so much is just getting but they did not have any further just an empty slot open because I have been present in and done research position and so I do not know whether he can work at the end of August we have some stuff going on unknown and will see him in my life I had signed up show and I do not know you would go my dad stroke we have had a lot of he was hospitalized 3 times in 3 weeks and all while we were trying to work he is very difficult 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 He is status post aspiration of an epidural abscess. 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 During that hospitalization the patient had been complaining of ongoing back pain. In any event he was eventually discharged to the after completing a course of antibiotic therapy. He represented to the hospital with severe back pain. This precipitated his transfer to [facility]. At this point he is receiving IV Ancef as well as rifampin which has been recommended by infectious disease. He is to complete his IV antibiotic therapy here in the hospital due to his history of IV drug use. He will be receiving IV antibiotics through September 08, 2017. When I saw the patient today he is resting comfortably in a chair with his girlfriend at the bedside. He denies fever chills. No chest pain, shortness of breath or cough. No nausea vomiting or diarrhea. No urinary complaints. He states he has continued back pain but it has improved since the time of admission. Reason For Visit: OSTEOMYELITIS OF T6/T7 AND EPIDURAL ABSCESS S/P Physical Exam Vital Signs: Temp Pulse Resp BP Pulse Ox 98.0 F 106 H 18 120/70 100 08/13/17 16:03 08/13/17 16:03 08/13/17 16:03 08/13/17 16:03 08/13/17 16:03 Intake & Output 08/12/17 08/13/17 08/14/17 06:59 06:59 06:59 Intake Total 1333 1790 Balance 1333 1790 Weight 68.7 kg General appearance: PRESENT: no acute distress, disheveled, thin Head exam: PRESENT: atraumatic, normocephalic Mouth exam: PRESENT: moist, tongue midline Respiratory exam: PRESENT: clear to auscultation antonio. ABSENT: rales, rhonchi, wheezes Cardiovascular exam: PRESENT: RRR. ABSENT: diastolic murmur, rubs, systolic murmur GI/Abdominal exam: PRESENT: normal bowel sounds, soft. ABSENT: distended, guarding, mass, organolmegaly, rebound, tenderness Rectal exam: PRESENT: deferred Extremities exam: PRESENT: full ROM. ABSENT: calf tenderness, clubbing, pedal edema Musculoskeletal exam: PRESENT: ambulatory Neurological exam: PRESENT: alert, awake, oriented to person, oriented to place , oriented to time, oriented to situation, CN II-XII grossly intact. ABSENT: motor sensory deficit Psychiatric exam: PRESENT: appropriate affect, normal mood. ABSENT: homicidal ideation, suicidal ideation Skin exam: PRESENT: dry, intact, warm. ABSENT: cyanosis, rash Results Laboratory Results: 08/12/17 08:40 08/13/17 05:30 08/13/17 05:30 Sodium 140.4 Potassium 4.2 Chloride 103 Carbon Dioxide 26 Anion Gap 11 BUN 14 Creatinine 0.53 Est GFR ( Amer) > 60 Est GFR (Non-Af Amer) > 60 Glucose 167 H Calcium 9.3 Magnesium 1.9 Assessment & Plan - Diagnosis (1) Osteomyelitis Qualifiers: Osteomyelitis type: subacute Osteomyelitis location: unspecified site Qualified Code(s): M86.20 - Subacute osteomyelitis, unspecified site Is this a current diagnosis for this admission?: Yes Plan: Per infectious disease recommendations he will continue IV Ancef and rifampin through September 08, 2017. He seems to be tolerating it well. (2) IVDU (intravenous drug user) Is this a current diagnosis for this admission?: Yes Plan: It is unclear if the patient has quit using or not. He states he did not use any IV drugs after he got out of the hospital. He seems committed to quitting all drug use at this point. (3) Bacteremia Is this a current diagnosis for this admission?: Yes Plan: Repeat blood cultures have been negative. Continue IV Ancef. (4) Back pain Qualifiers: Back pain location: thoracic back pain Chronicity: acute Back pain laterality: bilateral Qualified Code(s): M54.6 - Pain in thoracic spine Is this a current diagnosis for this admission?: Yes Plan: Due to osteomyelitis. Improving slowly. (5) Diabetes mellitus type 2 in nonobese Is this a current diagnosis for this admission?: Yes Plan: Stable on current regimen (6) Anemia Qualifiers: Anemia type: iron deficiency Iron deficiency anemia type: inadequate dietary iron intake Qualified Code(s): D50.8 - Other iron deficiency anemias Is this a current diagnosis for this admission?: Yes Plan: Stable (7) Endocarditis Is this a current diagnosis for this admission?: Yes Plan: He was treated for this during his previous hospitalization was out of the hospital for 2 weeks. Continue IV Ancef and rifampin (8) Full code status Is this a current diagnosis for this admission?: Yes - Time Time Spent with patient: 15-24 minutes - Inpatient Certification Medical Necessity: Need for IV Antibiotics, Other - The patient will complete his IV antibiotic therapy here in the hospital. He will be receiving IV antibiotics through September 08, 2017.
[2017-08-13] MEDS: NICOTINE 14 MG/24 HR PATCH.TD24 TD SCH (19:10)
[2017-08-13] MEDS: LIDOCAINE 5% (700 MG) TRANSDERMAL ADH..PATCH TP SCH (23:03)
[2017-08-14] MEDS: CEFAZOLIN 2 GM/D5W RTU 2 GM/50 ML RTUPB IV SCH ×3 (03:03→15:25)
[2017-08-14] MEDS: FENTANYL CITRATE INJ/PF 100 MCG/2 ML AMPUL IV PRN ×6 (03:03→23:49)
[2017-08-14] MEDS: GABAPENTIN 300 MG CAPSULE PO SCH ×3 (06:05→23:18)
[2017-08-14 06:48] LABS: ABSOLUTE BASOPHILS # (AUTO) 0.1 10^3/uL (0.0-0.2); ABSOLUTE EOSINOPHILS # (AUTO) 0.4 10^3/uL (0.0-0.6); ABSOLUTE LYMPHOCYTES (AUTO) 5.4 10^3/uL (0.5-4.7); ABSOLUTE MONOCYTES (AUTO) 0.8 10^3/uL (0.1-1.4); ABSOLUTE NEUT (AUTO) 4.8 10^3/uL (1.7-8.2); BASOPHILS % (AUTO) 0.6 % (0-2); EOSINOPHILS % (AUTO) 3.7 % (0-6); HEMATOCRIT 34.9 % (37.9-51.0); HEMOGLOBIN 11.6 g/dL (13.5-17.0); LYMPHOCYTES % (AUTO) 46.6 % (13-45); MEAN CORPUSCULAR HEMOGLOBIN 27.7 pg (27.0-33.4); MEAN CORPUSCULAR HGB CONC 33.3 g/dL (32.0-36.0); MEAN CORPUSCULAR VOLUME 83 fl (80-97); MONOCYTES % (AUTO) 7.2 % (3-13); PLATELET COUNT 369 10^3/uL (150-450); RED CELL DISTRIBUTION WIDTH 22.1 % (11.5-14.0); SEGMENTED NEUTROPHILS % (AUTO) 41.9 % (42-78); TOTAL CELLS COUNTED % (AUTO) 100 %; WHITE BLOOD COUNT 11.6 10^3/uL (4.0-10.5)
[2017-08-14 07:08] LABS: ANION GAP 12 (5-19); BLOOD UREA NITROGEN 15 mg/dL (7-20); CALCIUM 9.7 mg/dL (8.4-10.2); CARBON DIOXIDE 27 mmol/L (22-30); CHLORIDE 103 mmol/L (98-107); GLUCOSE 135 mg/dL (75-110); POTASSIUM 4.3 mmol/L (3.6-5.0); SODIUM 141.6 mmol/L (137-145)
[2017-08-14] MEDS: OXYCODONE-ACETAMINOPHEN 5-325 MG TABLET PO PRN ×2 (07:10→18:45)
[2017-08-14] MEDS: DOCUSATE SODIUM 100 MG CAPSULE PO SCH ×2 (10:27→16:25)
[2017-08-14] MEDS: PHARMACY COMMUNICATION ORDER MC SCH (10:32)
[2017-08-14] MEDS: NORMAL SALINE 10 ML SDV (SCHEDULED) IV SCH ×2 (10:41→23:22)
[2017-08-14] MEDS: OXYCODONE HCL SR 10 MG TABLET PO SCH ×2 (10:41→23:22)
[2017-08-14] MEDS: RIFAMPIN 300 MG CAPSULE PO SCH ×2 (10:41→23:17)
--- NOTE | 2017-08-14 17:24 | PDOC PROGRESS REPORT ---
Subjective Progress Note for:: 08/14/17 Subjective:: He states he is doing ok. No new complaints. He is still having pressure in his back. He has had no fever or chills. No nausea or vomiting. Bowels are moving well. Reason For Visit: OSTEOMYELITIS OF T6/T7 AND EPIDURAL ABSCESS S/P Physical Exam Vital Signs: Temp Pulse Resp BP Pulse Ox 97.5 F 91 18 129/76 H 100 08/14/17 16:00 08/14/17 16:00 08/14/17 16:00 08/14/17 16:00 08/14/17 16:00 Intake & Output 08/13/17 08/14/17 08/15/17 06:59 06:59 06:59 Intake Total 1790 2450 Output Total 600 Balance 1790 1850 Weight 68.7 kg 68.7 kg General appearance: PRESENT: no acute distress, well-developed, well-nourished Neck exam: ABSENT: carotid bruit, JVD, lymphadenopathy, thyromegaly Respiratory exam: PRESENT: clear to auscultation antonio. ABSENT: rales, rhonchi, wheezes Cardiovascular exam: PRESENT: RRR. ABSENT: diastolic murmur, rubs, systolic murmur Pulses: PRESENT: normal dorsalis pedis pul Vascular exam: PRESENT: normal capillary refill GI/Abdominal exam: PRESENT: normal bowel sounds, soft. ABSENT: distended, guarding, mass, organolmegaly, rebound, tenderness Extremities exam: PRESENT: full ROM. ABSENT: calf tenderness, clubbing, pedal edema Neurological exam: PRESENT: alert, awake, oriented to person, oriented to place , oriented to time, oriented to situation, CN II-XII grossly intact. ABSENT: motor sensory deficit Skin exam: PRESENT: dry, intact, warm. ABSENT: cyanosis, rash Results Laboratory Results: 08/14/17 06:05 08/14/17 06:05 08/14/17 08/14/17 06:05 06:05 WBC 11.6 H RBC 4.20 L Hgb 11.6 L Hct 34.9 L MCV 83 MCH 27.7 MCHC 33.3 RDW 22.1 H Plt Count 369 Seg Neutrophils % 41.9 L Lymphocytes % 46.6 H Monocytes % 7.2 Eosinophils % 3.7 Basophils % 0.6 Absolute Neutrophils 4.8 Absolute Lymphocytes 5.4 H Absolute Monocytes 0.8 Absolute Eosinophils 0.4 Absolute Basophils 0.1 Sodium 141.6 Potassium 4.3 Chloride 103 Carbon Dioxide 27 Anion Gap 12 BUN 15 Creatinine 0.54 Est GFR ( Amer) > 60 Est GFR (Non-Af Amer) > 60 Glucose 135 H Calcium 9.7 Magnesium 1.9 08/09/17 06:23 Blood Blood Culture - Final NO GROWTH IN 5 DAYS 08/09/17 05:31 Blood Blood Culture - Final NO GROWTH IN 5 DAYS Assessment & Plan - Diagnosis (1) Back pain Qualifiers: Back pain location: thoracic back pain Chronicity: acute Back pain laterality: bilateral Qualified Code(s): M54.6 - Pain in thoracic spine Is this a current diagnosis for this admission?: Yes Plan: secondary to osteomyelitis. continue current antibiotics until 08/29/17. Continue current pain medications (2) Diabetes mellitus type 2 in nonobese Is this a current diagnosis for this admission?: Yes Plan: continue current plan and monitoring (3) IVDU (intravenous drug user) Is this a current diagnosis for this admission?: Yes (4) Osteomyelitis Qualifiers: Osteomyelitis type: subacute Osteomyelitis location: unspecified site Qualified Code(s): M86.20 - Subacute osteomyelitis, unspecified site Is this a current diagnosis for this admission?: Yes Plan: see back pain - Time Time Spent with patient: 15-24 minutes Medications reviewed and adjusted accordingly: Yes Anticipated discharge: Home Within: Other - Inpatient Certification Based on my medical assessment, after consideration of the patient's comorbidities, presenting symptoms, or acuity I expect that the services needed warrant INPATIENT care.: Yes I certify that my determination is in accordance with my understanding of Medicare's requirements for reasonable and necessary INPATIENT services [42 CFR 412.3e].: Yes Medical Necessity: Need for IV Antibiotics
[2017-08-14] MEDS: NICOTINE 14 MG/24 HR PATCH.TD24 TD SCH (19:24)
[2017-08-14] MEDS: LIDOCAINE 5% (700 MG) TRANSDERMAL ADH..PATCH TP SCH (23:22)
[2017-08-14] MEDS: CEFAZOLIN SODIUM 2 GM in NORMAL SALINE 100 ML IV SCH (23:25)
[2017-08-15] MEDS: CEFAZOLIN SODIUM 2 GM in NORMAL SALINE 100 ML IV SCH ×4 (04:09→21:33)
[2017-08-15] MEDS: FENTANYL CITRATE INJ/PF 100 MCG/2 ML AMPUL IV PRN ×5 (04:09→21:32)
[2017-08-15] MEDS: GABAPENTIN 300 MG CAPSULE PO SCH ×3 (05:34→21:32)
[2017-08-15] MEDS: OXYCODONE-ACETAMINOPHEN 5-325 MG TABLET PO PRN ×2 (05:35→16:53)
[2017-08-15] MEDS: DOCUSATE SODIUM 100 MG CAPSULE PO SCH ×2 (09:18→16:02)
[2017-08-15] MEDS: PHARMACY COMMUNICATION ORDER MC SCH (09:19)
[2017-08-15] MEDS: OXYCODONE HCL SR 10 MG TABLET PO SCH ×2 (09:28→21:32)
[2017-08-15] MEDS: RIFAMPIN 300 MG CAPSULE PO SCH ×2 (09:28→21:33)
[2017-08-15] MEDS: NORMAL SALINE 10 ML SDV (SCHEDULED) IV SCH ×2 (09:28→21:33)
--- NOTE | 2017-08-15 12:27 | PDOC PROGRESS REPORT ---
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 He returned a month later with MSSA bacteremia and T6-T7 vertebral osteomyelitis with associated epidural abscess that was drained in [facility]. The plan is for him to continue Ancef through August 29 and the need for him to stay in hospital throughout his course due to his history of IV drug abuse. Patient still complaining of back pain even today. There is no numbness or tingling in fact his been walking around and ambulatory with his girlfriend. Reason For Visit: OSTEOMYELITIS OF T6/T7 AND EPIDURAL ABSCESS S/P Physical Exam Vital Signs: Temp Pulse Resp BP Pulse Ox 98.0 F 107 H 16 123/79 99 08/15/17 08:00 08/15/17 08:00 08/15/17 08:00 08/15/17 08:00 08/15/17 08:00 Intake & Output 08/14/17 08/15/17 08/16/17 06:59 06:59 06:59 Intake Total 2450 772 Output Total 600 650 Balance 1850 122 Weight 68.7 kg 68.7 kg General appearance: PRESENT: no acute distress, thin Head exam: PRESENT: atraumatic Eye exam: PRESENT: conjunctiva pink, EOMI, PERRLA. ABSENT: scleral icterus Ear exam: PRESENT: normal external ear exam Mouth exam: PRESENT: moist, tongue midline Neck exam: ABSENT: carotid bruit, JVD, lymphadenopathy, thyromegaly Respiratory exam: PRESENT: clear to auscultation antonio. ABSENT: rales, rhonchi, wheezes Cardiovascular exam: PRESENT: RRR. ABSENT: diastolic murmur, rubs, systolic murmur GI/Abdominal exam: PRESENT: normal bowel sounds, soft. ABSENT: distended, guarding, mass, organolmegaly, rebound, tenderness Rectal exam: PRESENT: deferred Neurological exam: PRESENT: alert, awake, oriented to person, oriented to time, oriented to situation Psychiatric exam: PRESENT: appropriate affect, normal mood. ABSENT: homicidal ideation, suicidal ideation Skin exam: PRESENT: dry, intact, warm. ABSENT: cyanosis, rash Results Laboratory Results: 08/14/17 06:05 08/14/17 06:05 Assessment & Plan - Time Time Spent with patient: Less than 15 minutes Medications reviewed and adjusted accordingly: Yes Anticipated discharge: Home - Plan Summary Plan Summary: Back pain secondary to osteomyelitis T6-T7. Continue Ancef as above 2. Type 2 diabetes mellitus continue current management 3. IV drug abuse for supportive management 4. Osteomyelitis of T6-T7 5. Endocarditis resolved Back pain with no neurological findings
[2017-08-15] MEDS: NICOTINE 14 MG/24 HR PATCH.TD24 TD SCH (20:32)
[2017-08-15] MEDS: LIDOCAINE 5% (700 MG) TRANSDERMAL ADH..PATCH TP SCH (21:33)
[2017-08-16] MEDS: CEFAZOLIN SODIUM 2 GM in NORMAL SALINE 100 ML IV SCH ×5 (00:29→23:45)
[2017-08-16] MEDS: OXYCODONE-ACETAMINOPHEN 5-325 MG TABLET PO PRN ×4 (01:13→21:13)
[2017-08-16] MEDS: FENTANYL CITRATE INJ/PF 100 MCG/2 ML AMPUL IV PRN ×6 (01:19→23:45)
[2017-08-16] MEDS: GABAPENTIN 300 MG CAPSULE PO SCH ×3 (05:18→21:13)
[2017-08-16] MEDS: INSULIN LISPRO 100 UNIT/ML 3 ML VIAL SUBCUT PRN ×3 (08:12→17:37)
[2017-08-16] MEDS: RIFAMPIN 300 MG CAPSULE PO SCH ×2 (10:01→21:14)
[2017-08-16] MEDS: OXYCODONE HCL SR 10 MG TABLET PO SCH ×2 (10:01→21:14)
[2017-08-16] MEDS: DOCUSATE SODIUM 100 MG CAPSULE PO SCH ×2 (10:02→17:38)
[2017-08-16] MEDS: PHARMACY COMMUNICATION ORDER MC SCH (10:03)
[2017-08-16] MEDS: NORMAL SALINE 10 ML SDV (SCHEDULED) IV SCH ×2 (10:03→21:14)
--- NOTE | 2017-08-16 11:17 | PDOC PROGRESS REPORT ---
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 He returned a month later with MSSA bacteremia and T6-T7 vertebral osteomyelitis with associated epidural abscess that was drained in [facility]. The plan is for him to continue Ancef through August 29 and the need for him to stay in hospital throughout his course due to his history of IV drug abuse. Patient has no new complaints today He is happy to learn his abx is through the Reason For Visit: OSTEOMYELITIS OF T6/T7 AND EPIDURAL ABSCESS S/P Physical Exam Vital Signs: Temp Pulse Resp BP Pulse Ox 97.8 F 90 16 121/75 99 08/16/17 08:00 08/16/17 08:00 08/16/17 08:00 08/16/17 08:00 08/16/17 08:00 Intake & Output 08/15/17 08/16/17 08/17/17 06:59 06:59 06:59 Intake Total 772 2740 Output Total 650 Balance 122 2740 Weight 68.7 kg 67.6 kg General appearance: PRESENT: no acute distress, thin Head exam: PRESENT: atraumatic, normocephalic Eye exam: PRESENT: conjunctiva pink, EOMI, PERRLA. ABSENT: scleral icterus GI/Abdominal exam: PRESENT: normal bowel sounds, soft. ABSENT: distended, guarding, mass, organolmegaly, rebound, tenderness Rectal exam: PRESENT: deferred Extremities exam: PRESENT: full ROM. ABSENT: calf tenderness, clubbing, pedal edema Neurological exam: PRESENT: alert, awake, oriented to person, oriented to place , oriented to time, oriented to situation, CN II-XII grossly intact. ABSENT: motor sensory deficit Results Laboratory Results: 08/14/17 06:05 08/14/17 06:05 Assessment & Plan - Time Time Spent with patient: Less than 15 minutes Medications reviewed and adjusted accordingly: Yes Anticipated discharge: Home Within: Other - 08/30 when antibiotics completed - Plan Summary Plan Summary: 1.Back pain secondary to osteomyelitis T6-T7. Continue Ancef as above 2. Type 2 diabetes mellitus continue current management 3. IV drug abuse for supportive management 4. Osteomyelitis of T6-T7 5. Endocarditis resolved 6.Back pain with no neurological findings
[2017-08-16] MEDS: NICOTINE 14 MG/24 HR PATCH.TD24 TD SCH (19:42)
[2017-08-16] MEDS: LIDOCAINE 5% (700 MG) TRANSDERMAL ADH..PATCH TP SCH (21:14)
[2017-08-17] MEDS: FENTANYL CITRATE INJ/PF 100 MCG/2 ML AMPUL IV PRN ×5 (04:37→21:54)
[2017-08-17] MEDS: OXYCODONE-ACETAMINOPHEN 5-325 MG TABLET PO PRN ×3 (04:37→19:41)
[2017-08-17] MEDS: GABAPENTIN 300 MG CAPSULE PO SCH ×3 (05:31→21:53)
[2017-08-17] MEDS: CEFAZOLIN SODIUM 2 GM in NORMAL SALINE 100 ML IV SCH ×4 (05:31→23:03)
[2017-08-17] MEDS: DOCUSATE SODIUM 100 MG CAPSULE PO SCH ×2 (08:41→16:51)
[2017-08-17] MEDS: PHARMACY COMMUNICATION ORDER MC SCH (08:46)
[2017-08-17] MEDS: OXYCODONE HCL SR 10 MG TABLET PO SCH (08:52)
[2017-08-17] MEDS: NORMAL SALINE 10 ML SDV (SCHEDULED) IV SCH ×2 (08:53→21:54)
[2017-08-17] MEDS: RIFAMPIN 300 MG CAPSULE PO SCH ×2 (08:53→21:54)
--- NOTE | 2017-08-17 11:51 | PDOC PROGRESS REPORT ---
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 He returned a month later with MSSA bacteremia and T6-T7 vertebral osteomyelitis with associated epidural abscess that was drained in [facility]. The plan is for him to continue Ancef through August 29 and the need for him to stay in hospital throughout his course due to his history of IV drug abuse. Patient has no new complaints today He is happy to learn his abx is through the c/o back pain Reason For Visit: OSTEOMYELITIS OF T6/T7 AND EPIDURAL ABSCESS S/P Physical Exam Vital Signs: Temp Pulse Resp BP Pulse Ox 97.6 F 87 14 108/68 99 08/16/17 23:37 08/16/17 23:37 08/16/17 23:37 08/16/17 23:37 08/16/17 23:37 Intake & Output 08/16/17 08/17/17 08/18/17 06:59 06:59 06:59 Intake Total 2740 5036 Balance 2740 5036 Weight 67.6 kg 67.9 kg General appearance: PRESENT: no acute distress Head exam: PRESENT: atraumatic Eye exam: PRESENT: conjunctival injection Neck exam: ABSENT: carotid bruit, JVD, lymphadenopathy, thyromegaly Respiratory exam: PRESENT: clear to auscultation antonio. ABSENT: rales, rhonchi, wheezes Cardiovascular exam: PRESENT: RRR. ABSENT: diastolic murmur, rubs, systolic murmur GI/Abdominal exam: PRESENT: normal bowel sounds, soft. ABSENT: distended, guarding, mass, organolmegaly, rebound, tenderness Rectal exam: PRESENT: deferred Neurological exam: PRESENT: alert, awake, oriented to person, oriented to place , oriented to time, oriented to situation, CN II-XII grossly intact. ABSENT: motor sensory deficit Skin exam: PRESENT: dry, intact, warm. ABSENT: cyanosis, rash Results Laboratory Results: 08/14/17 06:05 08/14/17 06:05 Assessment & Plan - Time Time Spent with patient: Less than 15 minutes Medications reviewed and adjusted accordingly: Yes Anticipated discharge: Home - Inpatient Certification Based on my medical assessment, after consideration of the patient's comorbidities, presenting symptoms, or acuity I expect that the services needed warrant INPATIENT care.: Yes Medical Necessity: Need for IV Antibiotics - Plan Summary Plan Summary: 1.Back pain secondary to osteomyelitis T6-T7. Continue Ancef as above 2. Type 2 diabetes mellitus continue current management 3. IV drug abuse for supportive management 4. Osteomyelitis of T6-T7 5. Endocarditis resolved 6.Back pain with no neurological findings
[2017-08-17] MEDS ORDERED: ALTEPLASE INJ 2 MG VIAL (CATH CLEARANCE) IV ONE (12:30)
[2017-08-17] MEDS: NICOTINE 14 MG/24 HR PATCH.TD24 TD SCH (19:39)
[2017-08-17] MEDS: LIDOCAINE 5% (700 MG) TRANSDERMAL ADH..PATCH TP SCH (21:30)
[2017-08-18] MEDS: FENTANYL CITRATE INJ/PF 100 MCG/2 ML AMPUL IV PRN ×5 (02:02→21:24)
[2017-08-18] MEDS: OXYCODONE-ACETAMINOPHEN 5-325 MG TABLET PO PRN ×3 (02:56→19:58)
[2017-08-18] MEDS: CEFAZOLIN SODIUM 2 GM in NORMAL SALINE 100 ML IV SCH ×4 (05:26→23:09)
[2017-08-18] MEDS: GABAPENTIN 300 MG CAPSULE PO SCH ×3 (05:26→21:22)
[2017-08-18] MEDS ORDERED: ALTEPLASE INJ 2 MG VIAL (CATH CLEARANCE) INJ ONE (06:15)
[2017-08-18 07:50] LABS: HEMATOCRIT 34.8 % (37.9-51.0); HEMOGLOBIN 11.5 g/dL (13.5-17.0); MEAN CORPUSCULAR HEMOGLOBIN 27.4 pg (27.0-33.4); MEAN CORPUSCULAR HGB CONC 32.9 g/dL (32.0-36.0); MEAN CORPUSCULAR VOLUME 83 fl (80-97); PLATELET COUNT 310 10^3/uL (150-450); RED BLOOD COUNT 4.18 10^6/uL (4.35-5.55); RED CELL DISTRIBUTION WIDTH 21.9 % (11.5-14.0); WHITE BLOOD COUNT 9.2 10^3/uL (4.0-10.5)
[2017-08-18 08:15] LABS: ANION GAP 10 (5-19); BLOOD UREA NITROGEN 14 mg/dL (7-20); CALCIUM 9.3 mg/dL (8.4-10.2); CARBON DIOXIDE 26 mmol/L (22-30); CHLORIDE 106 mmol/L (98-107); GLUCOSE 129 mg/dL (75-110); POTASSIUM 4.5 mmol/L (3.6-5.0); SODIUM 141.7 mmol/L (137-145)
--- NOTE | 2017-08-18 10:27 | PDOC PROGRESS REPORT ---
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 He returned a month later with MSSA bacteremia and T6-T7 vertebral osteomyelitis with associated epidural abscess that was drained in [facility]. The plan is for him to continue Ancef through September 08 and the need for him to stay in hospital throughout his course due to his history of IV drug abuse.His blood cultures were first negative on 07/28 making it 6 weeks through 09/08 Patient has no new complaints today Still c/o back pain. If patient symptoms are persistent will suggest obtaining imaging studies if clinically warranted Reason For Visit: OSTEOMYELITIS OF T6/T7 AND EPIDURAL ABSCESS S/P Physical Exam Vital Signs: Temp Pulse Resp BP Pulse Ox 98.0 F 88 16 125/80 100 08/18/17 08:15 08/18/17 08:15 08/18/17 08:15 08/18/17 08:15 08/18/17 08:15 Intake & Output 08/17/17 08/18/17 08/19/17 06:59 06:59 06:59 Intake Total 5036 2245 Balance 5036 2245 Weight 67.9 kg 70.6 kg General appearance: PRESENT: no acute distress, thin Head exam: PRESENT: atraumatic Ear exam: PRESENT: normal external ear exam Respiratory exam: PRESENT: clear to auscultation antonio. ABSENT: rales, rhonchi, wheezes Cardiovascular exam: PRESENT: RRR. ABSENT: diastolic murmur, rubs, systolic murmur Vascular exam: PRESENT: normal capillary refill GI/Abdominal exam: PRESENT: normal bowel sounds, soft. ABSENT: distended, guarding, mass, organolmegaly, rebound, tenderness Rectal exam: PRESENT: deferred Extremities exam: PRESENT: full ROM. ABSENT: calf tenderness, clubbing, pedal edema Neurological exam: PRESENT: alert, awake, oriented to person, oriented to place , oriented to time, oriented to situation, CN II-XII grossly intact. ABSENT: motor sensory deficit Results Laboratory Results: 08/18/17 06:43 08/18/17 06:43 08/18/17 08/18/17 06:43 06:43 WBC 9.2 RBC 4.18 L Hgb 11.5 L Hct 34.8 L MCV 83 MCH 27.4 MCHC 32.9 RDW 21.9 H Plt Count 310 Sodium 141.7 Potassium 4.5 Chloride 106 Carbon Dioxide 26 Anion Gap 10 BUN 14 Creatinine 0.59 Est GFR ( Amer) > 60 Est GFR (Non-Af Amer) > 60 Glucose 129 H Calcium 9.3 Assessment & Plan - Time Time Spent with patient: Less than 15 minutes Medications reviewed and adjusted accordingly: Yes Anticipated discharge: Home - Inpatient Certification Based on my medical assessment, after consideration of the patient's comorbidities, presenting symptoms, or acuity I expect that the services needed warrant INPATIENT care.: Yes Medical Necessity: Need for IV Antibiotics - Plan Summary Plan Summary: 1.Back pain secondary to osteomyelitis T6-T7. Continue Ancef as above. 2. Type 2 diabetes mellitus continue current management with SSI. 3. IV drug abuse for supportive management 4. Osteomyelitis of T6-T7 5. Endocarditis resolved
[2017-08-18] MEDS: RIFAMPIN 300 MG CAPSULE PO SCH ×2 (11:43→21:23)
[2017-08-18] MEDS: NORMAL SALINE 10 ML SDV (SCHEDULED) IV SCH ×2 (11:44→21:24)
[2017-08-18] MEDS: DOCUSATE SODIUM 100 MG CAPSULE PO SCH ×2 (11:45→17:41)
[2017-08-18] MEDS: PHARMACY COMMUNICATION ORDER MC SCH (11:45)
[2017-08-18] MEDS: NICOTINE 14 MG/24 HR PATCH.TD24 TD SCH (19:58)
[2017-08-19] MEDS: LIDOCAINE 5% (700 MG) TRANSDERMAL ADH..PATCH TP SCH ×2 (00:25→21:54)
[2017-08-19] MEDS: FENTANYL CITRATE INJ/PF 100 MCG/2 ML AMPUL IV PRN ×5 (01:18→20:38)
[2017-08-19] MEDS: OXYCODONE-ACETAMINOPHEN 5-325 MG TABLET PO PRN ×4 (02:05→21:52)
[2017-08-19] MEDS: GABAPENTIN 300 MG CAPSULE PO SCH ×3 (05:39→21:52)
[2017-08-19] MEDS: CEFAZOLIN SODIUM 2 GM in NORMAL SALINE 100 ML IV SCH ×4 (05:39→23:41)
[2017-08-19] MEDS: NORMAL SALINE 10 ML SDV (SCHEDULED) IV SCH ×2 (10:52→21:53)
[2017-08-19] MEDS: RIFAMPIN 300 MG CAPSULE PO SCH ×2 (10:52→21:53)
[2017-08-19] MEDS: DOCUSATE SODIUM 100 MG CAPSULE PO SCH ×2 (10:54→17:21)
[2017-08-19] MEDS: PHARMACY COMMUNICATION ORDER MC SCH (10:54)
--- NOTE | 2017-08-19 12:52 | RADIOLOGY REPORT (SQ) ---
EXAM DESCRIPTION: T SPINE AP/LAT COMPLETED DATE/TIME: 08/19/2017 12:38 pm REASON FOR STUDY: worsening pain COMPARISON: None. NUMBER OF VIEWS: Two views. TECHNIQUE: AP and lateral radiographic images acquired of the thoracic spine. LIMITATIONS: None. FINDINGS: MINERALIZATION: Normal. ALIGNMENT: Normal. No scoliosis. VERTEBRAE: Known discitis and osteomyelitis of the T6-7 level with blurring of the endplate margins. DISCS: See above. HARDWARE: None in the spine. MEDIASTINUM AND SOFT TISSUES: Normal heart size and aortic contour. No soft tissue abnormality. VISUALIZED LUNG ONTIVEROS: Clear. OTHER: No other significant finding. IMPRESSION: Known discitis and osteomyelitis T6-7. TECHNICAL DOCUMENTATION: JOB ID: [id number] [employer]- All Rights Reserved Reading location - IP/workstation name: [email or web address]
[2017-08-19] MEDS ORDERED: IBUPROFEN 800 MG TABLET PO ONE (13:00)
[2017-08-19] MEDS: IBUPROFEN 800 MG TABLET PO SCH (17:20)
--- NOTE | 2017-08-19 19:39 | PDOC PROGRESS REPORT ---
Subjective Progress Note for:: 08/19/17 Subjective:: Patient is having continued back pain where he has known osteomyelitis and discitis in the T-spine. He is also having some right knee pain and swelling. Eating and drinking okay. He is depressed about his situation. He still able to get up and go smoke. He is hanging out with a friend in his room. No chest pain or difficulty breathing. No fevers or chills. He does indicate that he thinks more opioid medication would help with his pains. We talked about this extensively and that we will try non-opioid methods for pain control at this point. Reason For Visit: OSTEOMYELITIS OF T6/T7 AND EPIDURAL ABSCESS S/P Physical Exam Vital Signs: Temp Pulse Resp BP Pulse Ox 97.8 F 95 18 148/89 H 100 08/19/17 16:00 08/19/17 16:00 08/19/17 16:00 08/19/17 16:00 08/19/17 16:00 Intake & Output 08/18/17 08/19/17 08/20/17 06:59 06:59 06:59 Intake Total 2245 1640 0 Output Total 650 Balance 2245 990 0 Weight 70.6 kg 70.6 kg General appearance: PRESENT: no acute distress, cooperative, thin Head exam: PRESENT: atraumatic, normocephalic Eye exam: PRESENT: conjunctiva pink, EOMI. ABSENT: scleral icterus Ear exam: PRESENT: normal external ear exam Mouth exam: PRESENT: neck supple Neck exam: ABSENT: lymphadenopathy Respiratory exam: PRESENT: decreased breath sounds, unlabored. ABSENT: rales, rhonchi, wheezes Cardiovascular exam: PRESENT: RRR. ABSENT: systolic murmur Pulses: PRESENT: normal radial pulses GI/Abdominal exam: PRESENT: normal bowel sounds, soft. ABSENT: distended, firm , tenderness Rectal exam: PRESENT: deferred Extremities exam: PRESENT: joint swelling, other - Right knee is positive for fluid on exam, some erythema over the knee as well. Musculoskeletal exam: PRESENT: ambulatory Neurological exam: PRESENT: alert, awake, oriented to person, oriented to place , oriented to situation, CN II-XII grossly intact Psychiatric exam: PRESENT: agitated Skin exam: PRESENT: dry, warm Results Laboratory Results: 08/18/17 06:43 08/18/17 06:43 Impressions: Thoracic Spine X-Ray 08/19/17 00:00 IMPRESSION: Known discitis and osteomyelitis T6-7. Assessment & Plan - Diagnosis (1) Right knee pain Qualifiers: Chronicity: acute Qualified Code(s): M25.561 - Pain in right knee Is this a current diagnosis for this admission?: Yes Plan: Patient has had septic right knee in the past. He states that over the past few days his right knee has become more painful enlarged and reddened. It is possible he has septic arthritis again. Afebrile. He is able to ambulate on it so no significant pain. I have consulted orthopedic surgery for further evaluation. (2) Diabetes mellitus type 2 in nonobese Is this a current diagnosis for this admission?: Yes Plan: Continue his insulin. CBGs relatively well controlled. (3) IVDU (intravenous drug user) Is this a current diagnosis for this admission?: Yes Plan: Patient will remain in the hospital for the duration of his IV antibiotic for his spine osteomyelitis and discitis needed to IV drug use. He is being treated with Ancef and rifampin for MSSA. (4) Osteomyelitis Qualifiers: Osteomyelitis type: subacute Osteomyelitis location: unspecified site Qualified Code(s): M86.20 - Subacute osteomyelitis, unspecified site Is this a current diagnosis for this admission?: Yes Plan: Osteomyelitis and discitis at T6-T7. Continue Ancef and rifampin for MSSA infection. He will complete antibiotics in the hospital on 427. He recently was treated for endocarditis as well. (5) Endocarditis Qualifiers: Endocarditis type: infective Is this a current diagnosis for this admission?: Yes Plan: completed treatment at [facility]. (6) Polysubstance abuse Is this a current diagnosis for this admission?: Yes Plan: Continue to provide counseling while he is in the hospital. Will speak with protective services case worker at the start of the week to see if there is other supportive management that we can provide since he is here through the end of August. - Time Time Spent with patient: 35 or more minutes Medications reviewed and adjusted accordingly: Yes - Inpatient Certification Based on my medical assessment, after consideration of the patient's comorbidities, presenting symptoms, or acuity I expect that the services needed warrant INPATIENT care.: Yes I certify that my determination is in accordance with my understanding of Medicare's requirements for reasonable and necessary INPATIENT services [42 CFR 412.3e].: Yes Medical Necessity: Significant Comorbidiites Make Outpatient Treatment Too Risky , Need Close Monitoring Due to Risk of Patient Decompensation, Need for IV Antibiotics
[2017-08-19] MEDS: NICOTINE 14 MG/24 HR PATCH.TD24 TD SCH (20:39)
[2017-08-20] MEDS: FENTANYL CITRATE INJ/PF 100 MCG/2 ML AMPUL IV PRN ×6 (00:51→23:50)
[2017-08-20] MEDS: OXYCODONE-ACETAMINOPHEN 5-325 MG TABLET PO PRN ×3 (05:16→18:38)
[2017-08-20] MEDS: CEFAZOLIN SODIUM 2 GM in NORMAL SALINE 100 ML IV SCH ×4 (05:16→23:50)
[2017-08-20] MEDS: GABAPENTIN 300 MG CAPSULE PO SCH ×3 (05:16→22:39)
[2017-08-20 07:13] LABS: HEMOGLOBIN 11.8 g/dL (13.5-17.0); MEAN CORPUSCULAR HEMOGLOBIN 28.2 pg (27.0-33.4); MEAN CORPUSCULAR HGB CONC 33.7 g/dL (32.0-36.0); MEAN CORPUSCULAR VOLUME 84 fl (80-97); PLATELET COUNT 285 10^3/uL (150-450); RED BLOOD COUNT 4.19 10^6/uL (4.35-5.55); RED CELL DISTRIBUTION WIDTH 22.4 % (11.5-14.0); WHITE BLOOD COUNT 7.8 10^3/uL (4.0-10.5)
[2017-08-20 07:24] LABS: ALANINE AMINOTRANSFERASE 28 U/L (21-72); ALBUMIN 3.7 g/dL (3.5-5.0); ALKALINE PHOSPHATASE 107 U/L (38-126); ANION GAP 9 (5-19); ASPARTATE AMINO TRANSFERASE 33 U/L (17-59); BILIRUBIN,DIRECT 0.1 mg/dL (0.0-0.4); BILIRUBIN,TOTAL 0.1 mg/dL (0.2-1.3); BLOOD UREA NITROGEN 12 mg/dL (7-20); CALCIUM 9.2 mg/dL (8.4-10.2); CARBON DIOXIDE 27 mmol/L (22-30); CHLORIDE 106 mmol/L (98-107); GLUCOSE 177 mg/dL (75-110); POTASSIUM 4.4 mmol/L (3.6-5.0); TOTAL PROTEIN 7.8 g/dL (6.3-8.2)
[2017-08-20] MEDS: INSULIN LISPRO 100 UNIT/ML 3 ML VIAL SUBCUT PRN ×2 (07:31→12:48)
[2017-08-20] MEDS: IBUPROFEN 800 MG TABLET PO SCH ×3 (07:32→17:05)
--- NOTE | 2017-08-20 08:13 | PDOC CONSULTATION ---
Consultation Consult Date: 08/20/17 Consult reason:: Right knee pain History of Present Illness Admission Date/PCP: 07/27/17 16:32 History of Present Illness: Patient is a 47-year-old white male with a vertebral osteomyelitis secondary to MSSA and intravenous drug use. Patient is status post arthroscopic debridement of her right septic knee arthritis in May by Dr. pollock. He is now experiencing increasing symptoms in the right knee and orthopedics is consulted for concerns about recurrent septic arthritis. Past Medical History Cardiac Medical History: Reports: Other - endocarditis, tricuspid valve Pulmonary Medical History: Reports: None Endocrine Medical History: Reports: Diabetes Mellitus Type 2 Musculoskeltal Medical History: Reports: Arthritis Psychiatric Medical History: Denies: Depression Past Surgical History Past Surgical History: Reports: Cardiac Catheterization, Orthopedic Surgery - ACL repair, R elbow, L ankle Right knee arthroscopic washout May Social History Information Source: Patient, [facility] Records Lives with: Friend Smoking Status: Current Every Day Smoker - describes smoking 1/2 ppd, smoking since age 16 Cigarettes Packs Per Day: 0.2 Frequency of Alcohol Use: None - describes heavier drinking in youth unquantified Hx Recreational Drug Use: Yes - describes meth and heroin use in April, but denies more recent use Drugs: Heroin, Methadone, Other Hx Prescription Drug Abuse: No Family History Family History: Arthritis, DM Parental Family History Reviewed: No Children Family History Reviewed: No Sibling(s) Family History Reviewed.: No Medication/Allergy Home Medications: No Home Medications 07/21/17 Allergies/Adverse Reactions: Penicillins Allergy (Verified 07/21/17 08:48) Review of Systems All systems: as per [facility] Physical Exam Vital Signs: Temp Pulse Resp BP Pulse Ox 36.4 C 82 14 132/78 H 98 08/20/17 00:00 08/20/17 00:00 08/20/17 00:00 08/20/17 00:00 08/20/17 00:00 Intake & Output 08/19/17 08/20/17 08/21/17 06:59 06:59 06:59 Intake Total 1640 3140 Output Total 650 Balance 990 3140 Weight 70.6 kg 68.8 kg Physical Exam: Patient is a tall thin middle-aged white male ambulating around the room with jeans on. He has minimal antalgic component to his gait. He actively demonstrates a full active range of motion of the right knee. General appearance: PRESENT: no acute distress Head exam: PRESENT: normocephalic Respiratory exam: PRESENT: unlabored Cardiovascular exam: PRESENT: RRR Pulses: PRESENT: +1 pedal pulses bilateral Vascular exam: PRESENT: normal capillary refill GI/Abdominal exam: PRESENT: soft Rectal exam: PRESENT: deferred Extremities exam: PRESENT: other - Right knee has a full active and passive range of motion. There is a low-grade effusion. There is mild global tenderness to palpation. There is no ligamentous instability. There is no skin abnormalities. There is no erythema, increased soft tissue turgor, or wound drainage. Neurological exam: PRESENT: alert, awake, oriented to person, oriented to place , oriented to time, oriented to situation. ABSENT: motor sensory deficit Psychiatric exam: PRESENT: appropriate affect, normal mood. ABSENT: homicidal ideation, suicidal ideation Skin exam: PRESENT: dry, intact, warm. ABSENT: cyanosis, rash Results Laboratory Results: 08/20/17 06:23 08/20/17 06:23 08/20/17 08/20/17 06:23 06:23 WBC 7.8 RBC 4.19 L Hgb 11.8 L Hct 35.0 L MCV 84 MCH 28.2 MCHC 33.7 RDW 22.4 H Plt Count 285 Sodium 142.0 Potassium 4.4 Chloride 106 Carbon Dioxide 27 Anion Gap 9 BUN 12 Creatinine 0.54 Est GFR ( Amer) > 60 Est GFR (Non-Af Amer) > 60 Glucose 177 H Calcium 9.2 Total Bilirubin 0.1 L AST 33 ALT 28 Alkaline Phosphatase 107 Total Protein 7.8 Albumin 3.7 Impressions: Thoracic Spine X-Ray 08/19/17 00:00 IMPRESSION: Known discitis and osteomyelitis T6-7. Status: Imported from PACS Assessment & Plan - Diagnosis (1) Effusion, right knee Is this a current diagnosis for this admission?: Yes Plan: Patient with minor discomfort in the right knee. Clinically this is not consistent with a septic arthritis. The patient may be developing a post- septic arthrosis in the knee which is aseptic. Treatment with anti- inflammatory medications on a as needed basis is appropriate. - Time Time Spent: 50 to 70 Minutes Anticipated discharge: Other Within: Other
[2017-08-20] MEDS: DOCUSATE SODIUM 100 MG CAPSULE PO SCH ×2 (09:39→17:07)
[2017-08-20] MEDS: NORMAL SALINE 10 ML SDV (SCHEDULED) IV SCH ×2 (10:53→22:39)
[2017-08-20] MEDS: NORMAL SALINE 10 ML SDV (AFTER EACH USE) IV PRN (10:53)
[2017-08-20] MEDS: RIFAMPIN 300 MG CAPSULE PO SCH ×2 (10:53→22:39)
[2017-08-20] MEDS: PHARMACY COMMUNICATION ORDER MC SCH (11:12)
--- NOTE | 2017-08-20 14:17 | PDOC PROGRESS REPORT ---
Subjective Progress Note for:: 08/20/17 Subjective:: Pt is feeling well, no dyspnea, no CP. His right knee continues to be painful but he is able to walk on it. No fevers or chills. He continues to complain of back pain where he has known osteomyelitis. Eating and drinking without difficulty. No abdominal pain nausea or vomiting. Moving his bowels. No dysuria. He continues to request more pain medication. He believes that the increase in the gabapentin may be helping with his pain some. Reason For Visit: OSTEOMYELITIS OF T6/T7 AND EPIDURAL ABSCESS S/P Physical Exam Vital Signs: Temp Pulse Resp BP Pulse Ox 97.7 F 95 18 122/83 100 08/20/17 12:00 08/20/17 12:00 08/20/17 12:00 08/20/17 12:00 08/20/17 12:00 Intake & Output 08/19/17 08/20/17 08/21/17 06:59 06:59 06:59 Intake Total 1640 3140 Output Total 650 Balance 990 3140 Weight 70.6 kg 68.8 kg General appearance: PRESENT: no acute distress, cooperative, thin Head exam: PRESENT: atraumatic, normocephalic Eye exam: PRESENT: conjunctiva pink, EOMI. ABSENT: scleral icterus Ear exam: PRESENT: normal external ear exam Respiratory exam: PRESENT: clear to auscultation antonio, unlabored. ABSENT: rales , rhonchi, wheezes Cardiovascular exam: PRESENT: RRR. ABSENT: systolic murmur Pulses: PRESENT: normal radial pulses GI/Abdominal exam: PRESENT: normal bowel sounds, soft. ABSENT: distended, guarding, tenderness Rectal exam: PRESENT: deferred Extremities exam: PRESENT: joint swelling. ABSENT: pedal edema Musculoskeletal exam: PRESENT: ambulatory Neurological exam: PRESENT: alert, awake, oriented to person, oriented to place , oriented to situation, CN II-XII grossly intact Psychiatric exam: PRESENT: appropriate affect. ABSENT: anxious Skin exam: PRESENT: dry, intact, warm Results Laboratory Results: 08/20/17 06:23 08/20/17 06:23 08/20/17 08/20/17 06:23 06:23 WBC 7.8 RBC 4.19 L Hgb 11.8 L Hct 35.0 L MCV 84 MCH 28.2 MCHC 33.7 RDW 22.4 H Plt Count 285 Sodium 142.0 Potassium 4.4 Chloride 106 Carbon Dioxide 27 Anion Gap 9 BUN 12 Creatinine 0.54 Est GFR ( Amer) > 60 Est GFR (Non-Af Amer) > 60 Glucose 177 H Calcium 9.2 Total Bilirubin 0.1 L AST 33 ALT 28 Alkaline Phosphatase 107 Total Protein 7.8 Albumin 3.7 Impressions: Thoracic Spine X-Ray 08/19/17 00:00 IMPRESSION: Known discitis and osteomyelitis T6-7. Assessment & Plan - Diagnosis (1) Right knee pain Qualifiers: Chronicity: acute Qualified Code(s): M25.561 - Pain in right knee Is this a current diagnosis for this admission?: Yes Plan: Orthopedic surgery consult appreciated. No evidence of septic arthritis. Patient may be developing a post septic arthrosis. Will monitor. I started patient on ibuprofen yesterday, will continue for several days around the clock. This seems to have helped his knee pain. (2) Diabetes mellitus type 2 in nonobese Is this a current diagnosis for this admission?: Yes Plan: Stable, continue insulin. (3) IVDU (intravenous drug user) Is this a current diagnosis for this admission?: Yes Plan: For this reason patient is receiving his treatment for osteomyelitis through central line while hospitalized. (4) Osteomyelitis Qualifiers: Osteomyelitis type: subacute Osteomyelitis location: unspecified site Qualified Code(s): M86.20 - Subacute osteomyelitis, unspecified site Is this a current diagnosis for this admission?: Yes Plan: In the T-spine. Continue antibiotic plan unchanged. (5) Endocarditis Qualifiers: Endocarditis type: infective Is this a current diagnosis for this admission?: Yes Plan: Recent Heraclio treated at [facility]. (6) Polysubstance abuse Is this a current diagnosis for this admission?: Yes Plan: We will continue to perform intermittent substance abuse counseling. Will consult process planner for resources related to substance abuse counseling as an outpatient. - Time Time Spent with patient: 15-24 minutes Anticipated discharge: Home - Inpatient Certification Based on my medical assessment, after consideration of the patient's comorbidities, presenting symptoms, or acuity I expect that the services needed warrant INPATIENT care.: Yes I certify that my determination is in accordance with my understanding of Medicare's requirements for reasonable and necessary INPATIENT services [42 CFR 412.3e].: Yes Medical Necessity: Significant Comorbidiites Make Outpatient Treatment Too Risky , Need Close Monitoring Due to Risk of Patient Decompensation, Need for IV Antibiotics 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
[2017-08-20] MEDS: NICOTINE 14 MG/24 HR PATCH.TD24 TD SCH (20:04)
[2017-08-20] MEDS: LIDOCAINE 5% (700 MG) TRANSDERMAL ADH..PATCH TP SCH (22:40)
[2017-08-21] MEDS: OXYCODONE-ACETAMINOPHEN 5-325 MG TABLET PO PRN ×4 (00:55→20:42)
[2017-08-21] MEDS: FENTANYL CITRATE INJ/PF 100 MCG/2 ML AMPUL IV PRN ×4 (03:57→19:32)
[2017-08-21] MEDS: CEFAZOLIN SODIUM 2 GM in NORMAL SALINE 100 ML IV SCH ×4 (06:52→23:02)
[2017-08-21] MEDS: GABAPENTIN 300 MG CAPSULE PO SCH ×3 (06:52→20:41)
[2017-08-21] MEDS: IBUPROFEN 800 MG TABLET PO SCH ×3 (08:32→16:31)
[2017-08-21] MEDS: RIFAMPIN 300 MG CAPSULE PO SCH ×2 (10:45→20:41)
[2017-08-21] MEDS: PHARMACY COMMUNICATION ORDER MC SCH (11:01)
[2017-08-21] MEDS: DOCUSATE SODIUM 100 MG CAPSULE PO SCH ×2 (11:01→19:31)
[2017-08-21] MEDS: INSULIN LISPRO 100 UNIT/ML 3 ML VIAL SUBCUT PRN ×3 (11:48→23:05)
[2017-08-21] MEDS: NORMAL SALINE 10 ML SDV (AFTER EACH USE) IV PRN (11:50)
[2017-08-21] MEDS: NORMAL SALINE 10 ML SDV (SCHEDULED) IV SCH ×2 (11:52→21:52)
--- NOTE | 2017-08-21 19:14 | PDOC PROGRESS REPORT ---
Subjective Progress Note for:: 08/21/17 Subjective:: Pt feels a little less back and knee pain today, no complaints. No chest pain or SOB. No fever or chills. Reason For Visit: OSTEOMYELITIS OF T6/T7 AND EPIDURAL ABSCESS S/P Physical Exam Vital Signs: Temp Pulse Resp BP Pulse Ox 97.9 F 89 16 112/62 98 08/21/17 15:39 08/21/17 15:39 08/21/17 15:39 08/21/17 15:39 08/21/17 15:39 Intake & Output 08/20/17 08/21/17 08/22/17 06:59 06:59 06:59 Intake Total 3140 4582 1106 Balance 3140 4582 1106 Weight 68.8 kg 68.9 kg General appearance: PRESENT: no acute distress, cooperative, thin Head exam: PRESENT: atraumatic, normocephalic Eye exam: PRESENT: conjunctiva pink. ABSENT: scleral icterus Respiratory exam: PRESENT: clear to auscultation antonio, rales, rhonchi, unlabored. ABSENT: wheezes GI/Abdominal exam: PRESENT: normal bowel sounds, soft. ABSENT: distended, tenderness Extremities exam: ABSENT: pedal edema Neurological exam: PRESENT: alert, awake, oriented to person, oriented to place , oriented to situation, CN II-XII grossly intact Psychiatric exam: PRESENT: flat affect. ABSENT: anxious Skin exam: PRESENT: dry, intact, warm, other - right knee not warm or erythematous Results Laboratory Results: 08/20/17 06:23 08/20/17 06:23 Impressions: Thoracic Spine X-Ray 08/19/17 00:00 IMPRESSION: Known discitis and osteomyelitis T6-7. Assessment & Plan - Diagnosis (1) Right knee pain Qualifiers: Chronicity: acute Qualified Code(s): M25.561 - Pain in right knee Is this a current diagnosis for this admission?: Yes Plan: Per orthopedic surgeon patient probably has post septic knee arthrosis. We will continue to monitor and treat with as needed ibuprofen. (2) Diabetes mellitus type 2 in nonobese Is this a current diagnosis for this admission?: Yes Plan: Stable. Continue current care. (3) IVDU (intravenous drug user) Is this a current diagnosis for this admission?: Yes Plan: Patient has had multiple complications related to his IV drug abuse. He has recently been treated for endocarditis and now has osteomyelitis and discitis in the spine. He is being kept in the hospital for IV antibiotic therapy and has a central line in place secondary to his substance abuse disorder. He has been able to wander around the hospital and in an out of the hospital to smoke. I have placed an order that he should only be allowed to go outside with staff supervision for his own safety. Also I have decreased his fentanyl from 25 mcg every 4 hours to 12.5 mcg every 4 hours. Goal will be to wean off the opioids completely. I started as needed ibuprofen. I have titrated up his gabapentin and he still has quite a ways to go on the gabapentin. After I titrated the gabapentin up and ibuprofen his pain did improve. (4) Osteomyelitis Qualifiers: Osteomyelitis type: subacute Osteomyelitis location: unspecified site Qualified Code(s): M86.20 - Subacute osteomyelitis, unspecified site Is this a current diagnosis for this admission?: Yes Plan: Continue current antibiotic therapy. (5) Endocarditis Qualifiers: Endocarditis type: infective Is this a current diagnosis for this admission?: Yes Plan: Only completed treatment. Secondary to IV drug abuse. (6) Polysubstance abuse Is this a current diagnosis for this admission?: Yes Plan: Please see IV drug use above. (7) Acute pain Is this a current diagnosis for this admission?: Yes Plan: Secondary to osteomyelitis and discitis in the spine and also secondary to post septic knee applications. Please see IV drug use for plan for pain control. - Time Time Spent with patient: 15-24 minutes Medications reviewed and adjusted accordingly: Yes - Inpatient Certification Based on my medical assessment, after consideration of the patient's comorbidities, presenting symptoms, or acuity I expect that the services needed warrant INPATIENT care.: Yes I certify that my determination is in accordance with my understanding of Medicare's requirements for reasonable and necessary INPATIENT services [42 CFR 412.3e].: Yes Medical Necessity: Need for IV Antibiotics
[2017-08-21] MEDS: NICOTINE 14 MG/24 HR PATCH.TD24 TD SCH (20:06)
[2017-08-21] MEDS: LIDOCAINE 5% (700 MG) TRANSDERMAL ADH..PATCH TP SCH (21:00)
[2017-08-22] MEDS: FENTANYL CITRATE INJ/PF 100 MCG/2 ML AMPUL IV PRN ×4 (01:36→21:50)
[2017-08-22] MEDS: OXYCODONE-ACETAMINOPHEN 5-325 MG TABLET PO PRN ×3 (04:33→18:46)
[2017-08-22] MEDS: CEFAZOLIN SODIUM 2 GM in NORMAL SALINE 100 ML IV SCH ×3 (05:37→17:18)
[2017-08-22] MEDS: GABAPENTIN 300 MG CAPSULE PO SCH ×3 (05:37→21:52)
[2017-08-22] MEDS: RIFAMPIN 300 MG CAPSULE PO SCH ×2 (10:13→21:52)
[2017-08-22] MEDS: NORMAL SALINE 10 ML SDV (SCHEDULED) IV SCH ×2 (10:14→21:52)
[2017-08-22] MEDS: NORMAL SALINE 10 ML SDV (AFTER EACH USE) IV PRN (10:14)
[2017-08-22] MEDS: DOCUSATE SODIUM 100 MG CAPSULE PO SCH ×2 (10:14→17:19)
[2017-08-22] MEDS: PHARMACY COMMUNICATION ORDER MC SCH (10:53)
[2017-08-22] MEDS: IBUPROFEN 800 MG TABLET PO PRN (13:44)
--- NOTE | 2017-08-22 17:29 | PDOC PROGRESS REPORT ---
Subjective Progress Note for:: 08/22/17 Subjective:: Likely just really which is now I scheduled on the 10th in the day over the bone is I think an increase because there are no surgical incisions I would prefer to position go admission and like they open up the cervix and then switch me to the service and my stay in 12 hours sometimes but I also like if it is a good day get out because of units not I am not doing this at this point for the extra money so much is just getting but they did not have any further just an empty slot open because I have been present in and done research position and so I do not know whether he can work at the end of August we have some stuff going on unknown and will see him in my life I had signed up show and I do not know you would go my dad stroke we have had a lot of he was hospitalized 3 times in 3 weeks and all while we were trying to work he is very difficult 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 He is status post aspiration of an epidural abscess. 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 During that hospitalization the patient had been complaining of ongoing back pain. In any event he was eventually discharged to the after completing a course of antibiotic therapy. He represented to the hospital with severe back pain. This precipitated his transfer to [facility]. At this point he is receiving IV Ancef as well as rifampin which has been recommended by infectious disease. He is to complete his IV antibiotic therapy here in the hospital due to his history of IV drug use. He will be receiving IV antibiotics through September 08, 2017. Over this past week the patient developed pain in his knee. He has been seen by orthopedic surgery and it is felt that he may have a post-septic arthrosis. When I saw the patient today is resting comfortably in the bed. He has no complaints of knee pain. Overall he denies fever chills. No chest pain, shortness of breath or cough. No nausea vomiting or diarrhea. No urinary complaints. Reason For Visit: OSTEOMYELITIS OF T6/T7 AND EPIDURAL ABSCESS S/P Physical Exam Vital Signs: Temp Pulse Resp BP Pulse Ox 97.6 F 94 16 139/79 H 99 08/22/17 16:00 08/22/17 16:00 08/22/17 16:00 08/22/17 16:00 08/22/17 16:00 Intake & Output 08/21/17 08/22/17 08/23/17 06:59 06:59 06:59 Intake Total 4582 2792 Balance 4582 2792 Weight 68.9 kg 72.4 kg General appearance: PRESENT: disheveled, thin Head exam: PRESENT: atraumatic, normocephalic Mouth exam: PRESENT: moist, tongue midline Respiratory exam: PRESENT: clear to auscultation antonio. ABSENT: rales, rhonchi, wheezes Cardiovascular exam: PRESENT: RRR. ABSENT: diastolic murmur, rubs, systolic murmur GI/Abdominal exam: PRESENT: normal bowel sounds, soft. ABSENT: distended, guarding, mass, organolmegaly, rebound, tenderness Rectal exam: PRESENT: deferred Extremities exam: PRESENT: full ROM. ABSENT: calf tenderness, clubbing, pedal edema Neurological exam: PRESENT: alert, awake, oriented to person, oriented to place , oriented to time, oriented to situation, CN II-XII grossly intact. ABSENT: motor sensory deficit Psychiatric exam: PRESENT: appropriate affect, normal mood. ABSENT: homicidal ideation, suicidal ideation Skin exam: PRESENT: dry, intact, warm. ABSENT: cyanosis, rash Results Laboratory Results: 08/20/17 06:23 08/20/17 06:23 Impressions: Thoracic Spine X-Ray 08/19/17 00:00 IMPRESSION: Known discitis and osteomyelitis T6-7. Assessment & Plan - Diagnosis (1) Osteomyelitis Qualifiers: Osteomyelitis type: subacute Osteomyelitis location: unspecified site Qualified Code(s): M86.20 - Subacute osteomyelitis, unspecified site Is this a current diagnosis for this admission?: Yes Plan: Per infectious disease recommendations he will continue IV Ancef and rifampin through September 08, 2017. He seems to be tolerating it well. (2) IVDU (intravenous drug user) Is this a current diagnosis for this admission?: Yes Plan: It is unclear if the patient has quit using or not. He states he did not use any IV drugs after he got out of the hospital. He seems committed to quitting all drug use at this point. (3) Bacteremia Is this a current diagnosis for this admission?: Yes Plan: Repeat blood cultures have been negative. Continue IV Ancef. (4) Back pain Qualifiers: Back pain location: thoracic back pain Chronicity: acute Back pain laterality: bilateral Qualified Code(s): M54.6 - Pain in thoracic spine Is this a current diagnosis for this admission?: Yes Plan: Due to osteomyelitis. Improving slowly. (5) Diabetes mellitus type 2 in nonobese Is this a current diagnosis for this admission?: Yes Plan: Stable on current regimen (6) Anemia Qualifiers: Anemia type: iron deficiency Iron deficiency anemia type: inadequate dietary iron intake Qualified Code(s): D50.8 - Other iron deficiency anemias Is this a current diagnosis for this admission?: Yes Plan: Stable (7) Endocarditis Qualifiers: Endocarditis type: infective Is this a current diagnosis for this admission?: Yes Plan: He was treated for this during his previous hospitalization was out of the hospital for 2 weeks. Continue IV Ancef and rifampin (8) Arthrosis Is this a current diagnosis for this admission?: Yes Plan: He has been evaluated by orthopedic surgery regarding his knee pain. 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 (9) Full code status Is this a current diagnosis for this admission?: Yes - Time Time Spent with patient: 15-24 minutes - Inpatient Certification Medical Necessity: Other - Inpatient hospitalization remains necessary for long- term IV antibiotics. He finishes his antibiotic therapy on 09/08/2017.
[2017-08-22] MEDS: NICOTINE 14 MG/24 HR PATCH.TD24 TD SCH (20:38)
[2017-08-22] MEDS: LIDOCAINE 5% (700 MG) TRANSDERMAL ADH..PATCH TP SCH (21:51)
[2017-08-23] MEDS: CEFAZOLIN SODIUM 2 GM in NORMAL SALINE 100 ML IV SCH (00:59)
[2017-08-23] MEDS: OXYCODONE-ACETAMINOPHEN 5-325 MG TABLET PO PRN ×3 (01:05→17:19)
[2017-08-23] MEDS: FENTANYL CITRATE INJ/PF 100 MCG/2 ML AMPUL IV PRN ×4 (03:36→21:03)
[2017-08-23] MEDS: GABAPENTIN 300 MG CAPSULE PO SCH ×3 (08:30→21:03)
[2017-08-23 08:37] LABS: ABSOLUTE BASOPHILS # (AUTO) 0.1 10^3/uL (0.0-0.2); ABSOLUTE EOSINOPHILS # (AUTO) 0.3 10^3/uL (0.0-0.6); ABSOLUTE LYMPHOCYTES (AUTO) 4.5 10^3/uL (0.5-4.7); ABSOLUTE MONOCYTES (AUTO) 0.7 10^3/uL (0.1-1.4); ABSOLUTE NEUT (AUTO) 6.1 10^3/uL (1.7-8.2); BASOPHILS % (AUTO) 0.5 % (0-2); EOSINOPHILS % (AUTO) 2.9 % (0-6); HEMATOCRIT 38.3 % (37.9-51.0); HEMOGLOBIN 12.5 g/dL (13.5-17.0); LYMPHOCYTES % (AUTO) 38.8 % (13-45); MEAN CORPUSCULAR HEMOGLOBIN 27.6 pg (27.0-33.4); MEAN CORPUSCULAR HGB CONC 32.7 g/dL (32.0-36.0); MEAN CORPUSCULAR VOLUME 84 fl (80-97); MONOCYTES % (AUTO) 5.7 % (3-13); PLATELET COUNT 340 10^3/uL (150-450); RED BLOOD COUNT 4.54 10^6/uL (4.35-5.55); RED CELL DISTRIBUTION WIDTH 22.4 % (11.5-14.0); SEGMENTED NEUTROPHILS % (AUTO) 52.1 % (42-78); TOTAL CELLS COUNTED % (AUTO) 100 %; WHITE BLOOD COUNT 11.7 10^3/uL (4.0-10.5)
[2017-08-23 10:01] LABS: ALANINE AMINOTRANSFERASE 28 U/L (21-72); ALBUMIN 3.7 g/dL (3.5-5.0); ALKALINE PHOSPHATASE 107 U/L (38-126); ANION GAP 11 (5-19); ASPARTATE AMINO TRANSFERASE 32 U/L (17-59); BILIRUBIN,DIRECT 0.2 mg/dL (0.0-0.4); BILIRUBIN,TOTAL 0.2 mg/dL (0.2-1.3); BLOOD UREA NITROGEN 11 mg/dL (7-20); CALCIUM 9.2 mg/dL (8.4-10.2); CARBON DIOXIDE 27 mmol/L (22-30); CHLORIDE 103 mmol/L (98-107); GLUCOSE 255 mg/dL (75-110); POTASSIUM 4.2 mmol/L (3.6-5.0); SODIUM 141.1 mmol/L (137-145); TOTAL PROTEIN 7.8 g/dL (6.3-8.2)
[2017-08-23] MEDS: NORMAL SALINE 10 ML SDV (SCHEDULED) IV SCH ×2 (10:15→21:08)
[2017-08-23] MEDS: RIFAMPIN 300 MG CAPSULE PO SCH ×2 (10:15→21:03)
[2017-08-23] MEDS: DOCUSATE SODIUM 100 MG CAPSULE PO SCH ×2 (10:16→17:20)
[2017-08-23] MEDS: PHARMACY COMMUNICATION ORDER MC SCH (10:16)
[2017-08-23] MEDS: INSULIN LISPRO 100 UNIT/ML 3 ML VIAL SUBCUT PRN (13:20)
--- NOTE | 2017-08-23 18:43 | PDOC PROGRESS REPORT ---
Subjective Progress Note for:: 08/23/17 Subjective:: The patient is a 47-year-old male who was transferred back to our facility from [facility] for continued care of osteomyelitis at T6-T7. He is status post aspiration of an epidural abscess. 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 During that hospitalization the patient had been complaining of ongoing back pain. In any event he was eventually discharged to the after completing a course of antibiotic therapy. He represented to the hospital with severe back pain. This precipitated his transfer to [facility]. At this point he is receiving IV Ancef as well as rifampin which has been recommended by infectious disease. He is to complete his IV antibiotic therapy here in the hospital due to his history of IV drug use. He will be receiving IV antibiotics through September 08, 2017. Over this past week the patient developed pain in his knee. He has been seen by orthopedic surgery and it is felt that he may have a post-septic arthrosis. When I saw the patient today he states that he has developed worsening knee pain and swelling. He is quite uncomfortable. Otherwise he has no complaints. He does complain of back pain today as well Reason For Visit: OSTEOMYELITIS OF T6/T7 AND EPIDURAL ABSCESS S/P Physical Exam Vital Signs: Temp Pulse Resp BP Pulse Ox 97.7 F 96 16 140/76 H 100 08/23/17 12:00 08/23/17 12:00 08/23/17 12:00 08/23/17 12:00 08/23/17 12:00 Intake & Output 08/22/17 08/23/17 08/24/17 06:59 06:59 06:59 Intake Total 2792 1682 1410 Balance 2792 1682 1410 Weight 72.4 kg 72.4 kg General appearance: PRESENT: no acute distress, well-developed, well-nourished Head exam: PRESENT: atraumatic, normocephalic Respiratory exam: PRESENT: clear to auscultation antonio. ABSENT: rales, rhonchi, wheezes Cardiovascular exam: PRESENT: RRR. ABSENT: diastolic murmur, rubs, systolic murmur GI/Abdominal exam: PRESENT: normal bowel sounds, soft. ABSENT: distended, guarding, mass, organolmegaly, rebound, tenderness Rectal exam: PRESENT: deferred Extremities exam: PRESENT: tenderness - Right knee pain. It is somewhat swollen tender to palpation. ABSENT: calf tenderness, clubbing, pedal edema Neurological exam: PRESENT: alert, awake, oriented to person, oriented to place , oriented to time, oriented to situation, CN II-XII grossly intact. ABSENT: motor sensory deficit Psychiatric exam: PRESENT: appropriate affect, normal mood. ABSENT: homicidal ideation, suicidal ideation Skin exam: PRESENT: dry, intact, warm. ABSENT: cyanosis, rash Results Laboratory Results: 08/23/17 08:15 08/23/17 09:14 08/23/17 08/23/17 08/23/17 08:15 08:15 09:14 WBC 11.7 H RBC 4.54 Hgb 12.5 L Hct 38.3 MCV 84 MCH 27.6 MCHC 32.7 RDW 22.4 H Plt Count 340 Seg Neutrophils % 52.1 Lymphocytes % 38.8 Monocytes % 5.7 Eosinophils % 2.9 Basophils % 0.5 Absolute Neutrophils 6.1 Absolute Lymphocytes 4.5 Absolute Monocytes 0.7 Absolute Eosinophils 0.3 Absolute Basophils 0.1 Sodium Cancelled 141.1 Potassium Cancelled 4.2 Chloride Cancelled 103 Carbon Dioxide Cancelled 27 Anion Gap Cancelled 11 BUN Cancelled 11 Creatinine Cancelled 0.53 Est GFR ( Amer) Cancelled > 60 Est GFR (Non-Af Amer) Cancelled > 60 Glucose Cancelled 255 H Calcium Cancelled 9.2 Magnesium Cancelled 1.7 Total Bilirubin Cancelled 0.2 AST Cancelled 32 ALT Cancelled 28 Alkaline Phosphatase Cancelled 107 Total Protein Cancelled 7.8 Albumin Cancelled 3.7 Impressions: Thoracic Spine X-Ray 08/19/17 00:00 IMPRESSION: Known discitis and osteomyelitis T6-7. Assessment & Plan - Diagnosis (1) Osteomyelitis Qualifiers: Osteomyelitis type: subacute Osteomyelitis location: unspecified site Qualified Code(s): M86.20 - Subacute osteomyelitis, unspecified site Is this a current diagnosis for this admission?: Yes (2) IVDU (intravenous drug user) Is this a current diagnosis for this admission?: Yes (3) Bacteremia Is this a current diagnosis for this admission?: Yes (4) Back pain Qualifiers: Back pain location: thoracic back pain Chronicity: acute Back pain laterality: bilateral Qualified Code(s): M54.6 - Pain in thoracic spine Is this a current diagnosis for this admission?: Yes (5) Diabetes mellitus type 2 in nonobese Is this a current diagnosis for this admission?: Yes (6) Anemia Qualifiers: Anemia type: iron deficiency Iron deficiency anemia type: inadequate dietary iron intake Qualified Code(s): D50.8 - Other iron deficiency anemias Is this a current diagnosis for this admission?: Yes (7) Endocarditis Qualifiers: Endocarditis type: infective Is this a current diagnosis for this admission?: Yes (8) Arthrosis Is this a current diagnosis for this admission?: Yes (9) Full code status Is this a current diagnosis for this admission?: Yes - Time Time Spent with patient: 15-24 minutes - Inpatient Certification Medical Necessity: Need for IV Antibiotics - Inpatient hospitalization remains necessary for long-term IV antibiotics. He will be receiving his antibiotic therapy through September 08, 2017, Other
[2017-08-23] MEDS: NICOTINE 14 MG/24 HR PATCH.TD24 TD SCH (19:45)
[2017-08-23] MEDS: LIDOCAINE 5% (700 MG) TRANSDERMAL ADH..PATCH TP SCH (21:04)
[2017-08-24] MEDS: OXYCODONE-ACETAMINOPHEN 5-325 MG TABLET PO PRN ×4 (00:20→18:08)
[2017-08-24] MEDS: CEFAZOLIN SODIUM 2 GM in NORMAL SALINE 100 ML IV SCH ×4 (00:21→17:55)
[2017-08-24] MEDS: FENTANYL CITRATE INJ/PF 100 MCG/2 ML AMPUL IV PRN ×4 (03:46→21:22)
[2017-08-24] MEDS: GABAPENTIN 300 MG CAPSULE PO SCH ×3 (05:47→21:22)
[2017-08-24 06:52] LABS: ABSOLUTE BASOPHILS # (AUTO) 0.1 10^3/uL (0.0-0.2); ABSOLUTE EOSINOPHILS # (AUTO) 0.3 10^3/uL (0.0-0.6); ABSOLUTE LYMPHOCYTES (AUTO) 4.5 10^3/uL (0.5-4.7); ABSOLUTE MONOCYTES (AUTO) 0.6 10^3/uL (0.1-1.4); ABSOLUTE NEUT (AUTO) 5.4 10^3/uL (1.7-8.2); BASOPHILS % (AUTO) 0.6 % (0-2); EOSINOPHILS % (AUTO) 2.7 % (0-6); HEMATOCRIT 36.5 % (37.9-51.0); LYMPHOCYTES % (AUTO) 41.3 % (13-45); MEAN CORPUSCULAR HEMOGLOBIN 27.8 pg (27.0-33.4); MEAN CORPUSCULAR VOLUME 84 fl (80-97); MONOCYTES % (AUTO) 5.8 % (3-13); PLATELET COUNT 315 10^3/uL (150-450); RED BLOOD COUNT 4.32 10^6/uL (4.35-5.55); RED CELL DISTRIBUTION WIDTH 22.2 % (11.5-14.0); SEGMENTED NEUTROPHILS % (AUTO) 49.6 % (42-78); TOTAL CELLS COUNTED % (AUTO) 100 %; WHITE BLOOD COUNT 10.9 10^3/uL (4.0-10.5)
[2017-08-24 07:03] LABS: ANION GAP 12 (5-19); BLOOD UREA NITROGEN 14 mg/dL (7-20); CALCIUM 9.5 mg/dL (8.4-10.2); CARBON DIOXIDE 28 mmol/L (22-30); CHLORIDE 104 mmol/L (98-107); GLUCOSE 204 mg/dL (75-110); POTASSIUM 4.4 mmol/L (3.6-5.0); SODIUM 143.6 mmol/L (137-145)
[2017-08-24] MEDS: RIFAMPIN 300 MG CAPSULE PO SCH ×2 (08:49→21:22)
[2017-08-24] MEDS: INSULIN LISPRO 100 UNIT/ML 3 ML VIAL SUBCUT PRN ×2 (08:49→12:07)
[2017-08-24] MEDS: NORMAL SALINE 10 ML SDV (SCHEDULED) IV SCH ×2 (08:50→21:22)
[2017-08-24] MEDS: PHARMACY COMMUNICATION ORDER MC SCH (08:50)
[2017-08-24] MEDS: DOCUSATE SODIUM 100 MG CAPSULE PO SCH ×2 (08:50→17:55)
[2017-08-24] MEDS ORDERED: ONDANSETRON 4 MG TAB.RAPDIS PO PRN (09:30)
--- NOTE | 2017-08-24 19:10 | PDOC PROGRESS REPORT ---
Subjective Progress Note for:: 08/24/17 Subjective:: Patient patient resting on chair. He is awake alert and oriented. He complains of pain in his knee joint. Reason For Visit: OSTEOMYELITIS OF T6/T7 AND EPIDURAL ABSCESS S/P Physical Exam Vital Signs: Temp Pulse Resp BP Pulse Ox 97.7 F 93 20 132/73 H 100 08/24/17 11:27 08/24/17 11:27 08/24/17 11:27 08/24/17 11:27 08/24/17 11:27 Intake & Output 08/23/17 08/24/17 08/25/17 06:59 06:59 06:59 Intake Total 1682 2525 930 Balance 1682 2525 930 Weight 72.4 kg 72.4 kg General appearance: PRESENT: no acute distress, mild distress, well-developed, well-nourished Head exam: PRESENT: atraumatic, normocephalic Eye exam: PRESENT: conjunctiva pink, EOMI, PERRLA. ABSENT: scleral icterus Respiratory exam: PRESENT: clear to auscultation antonio. ABSENT: rales, rhonchi, wheezes Cardiovascular exam: PRESENT: RRR. ABSENT: diastolic murmur, rubs, systolic murmur GI/Abdominal exam: PRESENT: normal bowel sounds, soft. ABSENT: distended, guarding, mass, organolmegaly, rebound, tenderness Neurological exam: PRESENT: alert, awake, oriented to time, oriented to situation Results Laboratory Results: 08/24/17 06:00 08/24/17 06:00 08/24/17 08/24/17 06:00 06:00 WBC 10.9 H RBC 4.32 L Hgb 12.0 L Hct 36.5 L MCV 84 MCH 27.8 MCHC 33.0 RDW 22.2 H Plt Count 315 Seg Neutrophils % 49.6 Lymphocytes % 41.3 Monocytes % 5.8 Eosinophils % 2.7 Basophils % 0.6 Absolute Neutrophils 5.4 Absolute Lymphocytes 4.5 Absolute Monocytes 0.6 Absolute Eosinophils 0.3 Absolute Basophils 0.1 Sodium 143.6 Potassium 4.4 Chloride 104 Carbon Dioxide 28 Anion Gap 12 BUN 14 Creatinine 0.50 L Est GFR ( Amer) > 60 Est GFR (Non-Af Amer) > 60 Glucose 204 H Calcium 9.5 Magnesium 1.9 Impressions: Thoracic Spine X-Ray 08/19/17 00:00 IMPRESSION: Known discitis and osteomyelitis T6-7. Assessment & Plan - Diagnosis (1) Osteomyelitis Qualifiers: Osteomyelitis type: acute hematogenous Is this a current diagnosis for this admission?: Yes Plan: Patiently currently getting cefazolin and rifampin for methicillin sensitive staph aureus. (2) Sepsis Qualifiers: Sepsis type: methicillin susceptible Staphylococcus aureus Qualified Code(s ): A41.01 - Sepsis due to Methicillin susceptible Staphylococcus aureus Is this a current diagnosis for this admission?: Yes Plan: As #1 (3) Infective endocarditis Qualifiers: Infective endocarditis organism: bacterial Is this a current diagnosis for this admission?: Yes Plan: As # 1 (4) Diabetes 1.5, managed as type 2 Is this a current diagnosis for this admission?: Yes Plan: Continue current regimen - Time Time Spent with patient: 15-24 minutes - Inpatient Certification Medical Necessity: Need for IV Antibiotics
[2017-08-24] MEDS: NICOTINE 14 MG/24 HR PATCH.TD24 TD SCH (20:17)
[2017-08-24] MEDS: LIDOCAINE 5% (700 MG) TRANSDERMAL ADH..PATCH TP SCH (21:22)
[2017-08-25] MEDS: CEFAZOLIN SODIUM 2 GM in NORMAL SALINE 100 ML IV SCH ×5 (00:18→23:15)
[2017-08-25] MEDS: OXYCODONE-ACETAMINOPHEN 5-325 MG TABLET PO PRN ×5 (00:20→19:51)
[2017-08-25] MEDS: FENTANYL CITRATE INJ/PF 100 MCG/2 ML AMPUL IV PRN ×5 (02:58→23:25)
[2017-08-25] MEDS: INSULIN LISPRO 100 UNIT/ML 3 ML VIAL SUBCUT PRN ×2 (06:32→12:54)
[2017-08-25] MEDS: GABAPENTIN 300 MG CAPSULE PO SCH ×3 (06:36→22:44)
[2017-08-25] MEDS: DOCUSATE SODIUM 100 MG CAPSULE PO SCH ×2 (07:54→15:09)
[2017-08-25] MEDS: RIFAMPIN 300 MG CAPSULE PO SCH ×2 (08:48→22:44)
[2017-08-25] MEDS: NORMAL SALINE 10 ML SDV (SCHEDULED) IV SCH ×2 (08:51→22:44)
[2017-08-25] MEDS: PHARMACY COMMUNICATION ORDER MC SCH (08:52)
[2017-08-25] MEDS ORDERED: DEXTROSE 50%-WATER 25 GM/50 ML DISP.SYRIN IV PRN (10:30)
--- NOTE | 2017-08-25 17:05 | PDOC PROGRESS REPORT ---
Subjective Progress Note for:: 08/25/17 Subjective:: I seen patient resting in bed comfortably is not impairing her renal form of distress. His vital signs are stable. But still he complains of right knee pain. Reason For Visit: OSTEOMYELITIS OF T6/T7 AND EPIDURAL ABSCESS S/P Physical Exam Vital Signs: Temp Pulse Resp BP Pulse Ox 97.8 F 89 18 130/78 H 98 08/25/17 07:25 08/25/17 07:25 08/25/17 07:25 08/25/17 07:25 08/25/17 07:25 Intake & Output 08/24/17 08/25/17 08/26/17 06:59 06:59 06:59 Intake Total 2525 2140 Balance 2525 2140 Weight 72.4 kg 72.4 kg Results Laboratory Results: 08/24/17 06:00 08/24/17 06:00 Impressions: Thoracic Spine X-Ray 08/19/17 00:00 IMPRESSION: Known discitis and osteomyelitis T6-7. Assessment & Plan - Diagnosis (1) Osteomyelitis Qualifiers: Osteomyelitis type: acute hematogenous Is this a current diagnosis for this admission?: Yes Plan: Patiently currently getting cefazolin and rifampin for methicillin sensitive staph aureus. (2) Sepsis Qualifiers: Sepsis type: methicillin susceptible Staphylococcus aureus Qualified Code(s ): A41.01 - Sepsis due to Methicillin susceptible Staphylococcus aureus Is this a current diagnosis for this admission?: Yes Plan: As #1 (3) Infective endocarditis Qualifiers: Infective endocarditis organism: bacterial Is this a current diagnosis for this admission?: Yes Plan: As # 1 (4) Diabetes 1.5, managed as type 2 Is this a current diagnosis for this admission?: Yes - Time Time Spent with patient: 25-34 minutes - Inpatient Certification Medical Necessity: Need for IV Antibiotics
[2017-08-25] MEDS: NICOTINE 14 MG/24 HR PATCH.TD24 TD SCH (19:47)
[2017-08-25] MEDS: LIDOCAINE 5% (700 MG) TRANSDERMAL ADH..PATCH TP SCH (22:43)
[2017-08-26] MEDS: OXYCODONE-ACETAMINOPHEN 5-325 MG TABLET PO PRN ×5 (02:00→20:32)
[2017-08-26] MEDS: GABAPENTIN 300 MG CAPSULE PO SCH ×3 (05:44→23:10)
[2017-08-26] MEDS: FENTANYL CITRATE INJ/PF 100 MCG/2 ML AMPUL IV PRN ×3 (05:44→23:11)
[2017-08-26] MEDS: CEFAZOLIN SODIUM 2 GM in NORMAL SALINE 100 ML IV SCH ×4 (05:44→23:11)
[2017-08-26] MEDS: RIFAMPIN 300 MG CAPSULE PO SCH ×2 (09:28→23:10)
[2017-08-26] MEDS: NORMAL SALINE 10 ML SDV (SCHEDULED) IV SCH ×2 (09:30→23:11)
[2017-08-26] MEDS: DOCUSATE SODIUM 100 MG CAPSULE PO SCH ×2 (09:31→17:47)
[2017-08-26] MEDS: NORMAL SALINE 10 ML SDV (AFTER EACH USE) IV PRN (09:31)
[2017-08-26] MEDS: PHARMACY COMMUNICATION ORDER MC SCH (10:32)
[2017-08-26] MEDS: INSULIN LISPRO 100 UNIT/ML 3 ML VIAL SUBCUT PRN (12:05)
--- NOTE | 2017-08-26 13:11 | PDOC PROGRESS REPORT ---
Subjective Progress Note for:: 08/26/17 Subjective:: No new complaints.. Reason For Visit: OSTEOMYELITIS OF T6/T7 AND EPIDURAL ABSCESS S/P Physical Exam Vital Signs: Temp Pulse Resp BP Pulse Ox 97.9 F 86 16 120/71 100 08/26/17 11:33 08/26/17 11:33 08/26/17 11:33 08/26/17 11:33 08/26/17 11:33 Intake & Output 08/25/17 08/26/17 08/27/17 06:59 06:59 06:59 Intake Total 2140 1387 Balance 2140 1387 Weight 72.4 kg 73.2 kg Results Laboratory Results: 08/24/17 06:00 08/24/17 06:00 Impressions: Thoracic Spine X-Ray 08/19/17 00:00 IMPRESSION: Known discitis and osteomyelitis T6-7. Assessment & Plan - Diagnosis (1) Osteomyelitis Qualifiers: Osteomyelitis type: acute hematogenous Is this a current diagnosis for this admission?: Yes Plan: Patiently currently getting cefazolin and rifampin for methicillin sensitive staph aureus. The last dose of his antibiotics will be on September 08. (2) Sepsis Qualifiers: Sepsis type: methicillin susceptible Staphylococcus aureus Qualified Code(s ): A41.01 - Sepsis due to Methicillin susceptible Staphylococcus aureus Is this a current diagnosis for this admission?: Yes Plan: As #1 (3) Infective endocarditis Qualifiers: Infective endocarditis organism: bacterial Is this a current diagnosis for this admission?: Yes Plan: As # 1 (4) Diabetes 1.5, managed as type 2 Is this a current diagnosis for this admission?: Yes Plan: Continue current regimen - Time Time Spent with patient: 25-34 minutes
[2017-08-26] MEDS: NICOTINE 14 MG/24 HR PATCH.TD24 TD SCH (19:14)
[2017-08-26] MEDS: LIDOCAINE 5% (700 MG) TRANSDERMAL ADH..PATCH TP SCH (23:03)
[2017-08-27] MEDS: OXYCODONE-ACETAMINOPHEN 5-325 MG TABLET PO PRN ×5 (00:40→18:55)
[2017-08-27] MEDS: GABAPENTIN 300 MG CAPSULE PO SCH ×3 (06:54→22:06)
[2017-08-27] MEDS: CEFAZOLIN SODIUM 2 GM in NORMAL SALINE 100 ML IV SCH ×3 (06:55→17:17)
[2017-08-27] MEDS: FENTANYL CITRATE INJ/PF 100 MCG/2 ML AMPUL IV PRN ×4 (06:55→22:07)
[2017-08-27] MEDS: RIFAMPIN 300 MG CAPSULE PO SCH ×2 (09:41→22:04)
[2017-08-27] MEDS: NORMAL SALINE 10 ML SDV (SCHEDULED) IV SCH ×2 (09:42→22:07)
[2017-08-27] MEDS: DOCUSATE SODIUM 100 MG CAPSULE PO SCH ×2 (09:43→17:18)
[2017-08-27] MEDS: PHARMACY COMMUNICATION ORDER MC SCH (10:10)
[2017-08-27] MEDS: INSULIN LISPRO 100 UNIT/ML 3 ML VIAL SUBCUT PRN (12:57)
--- NOTE | 2017-08-27 14:50 | PDOC PROGRESS REPORT ---
Subjective Subjective:: No new development. Reason For Visit: OSTEOMYELITIS OF T6/T7 AND EPIDURAL ABSCESS S/P Physical Exam Vital Signs: Temp Pulse Resp BP Pulse Ox 97.5 F 86 16 140/81 H 100 08/27/17 11:26 08/27/17 11:26 08/27/17 11:26 08/27/17 11:26 08/27/17 11:26 Intake & Output 08/26/17 08/27/17 08/28/17 06:59 06:59 06:59 Intake Total 1387 1932 660 Balance 1387 1932 660 Weight 73.2 kg 70.3 kg General appearance: PRESENT: no acute distress, well-developed, well-nourished Head exam: PRESENT: atraumatic, normocephalic Eye exam: PRESENT: conjunctiva pink, EOMI, PERRLA. ABSENT: scleral icterus Ear exam: PRESENT: normal external ear exam Mouth exam: PRESENT: moist, tongue midline Neck exam: ABSENT: carotid bruit, JVD, lymphadenopathy, thyromegaly Respiratory exam: PRESENT: clear to auscultation antonio. ABSENT: rales, rhonchi, wheezes Cardiovascular exam: PRESENT: RRR. ABSENT: diastolic murmur, rubs, systolic murmur Pulses: PRESENT: normal dorsalis pedis pul Vascular exam: PRESENT: normal capillary refill GI/Abdominal exam: PRESENT: normal bowel sounds, soft. ABSENT: distended, guarding, mass, organolmegaly, rebound, tenderness Rectal exam: PRESENT: deferred Extremities exam: PRESENT: full ROM. ABSENT: calf tenderness, clubbing, pedal edema Neurological exam: PRESENT: alert, awake, oriented to person, oriented to place , oriented to time, oriented to situation, CN II-XII grossly intact. ABSENT: motor sensory deficit Psychiatric exam: PRESENT: appropriate affect, normal mood. ABSENT: homicidal ideation, suicidal ideation Skin exam: PRESENT: dry, intact, warm. ABSENT: cyanosis, rash Results Laboratory Results: 08/24/17 06:00 08/24/17 06:00 Impressions: Thoracic Spine X-Ray 08/19/17 00:00 IMPRESSION: Known discitis and osteomyelitis T6-7. Assessment & Plan - Diagnosis (1) Osteomyelitis Qualifiers: Osteomyelitis type: acute hematogenous Is this a current diagnosis for this admission?: Yes Plan: Patiently currently getting cefazolin and rifampin for methicillin sensitive staph aureus. The last dose of his antibiotics will be on September 08. (2) Sepsis Qualifiers: Sepsis type: methicillin susceptible Staphylococcus aureus Qualified Code(s ): A41.01 - Sepsis due to Methicillin susceptible Staphylococcus aureus Is this a current diagnosis for this admission?: Yes Plan: As #1 (3) Infective endocarditis Qualifiers: Infective endocarditis organism: bacterial Is this a current diagnosis for this admission?: Yes Plan: As # 1 (4) Diabetes 1.5, managed as type 2 Is this a current diagnosis for this admission?: Yes Plan: Continue current regimen
[2017-08-27] MEDS: NICOTINE 14 MG/24 HR PATCH.TD24 TD SCH (19:51)
[2017-08-27] MEDS: LIDOCAINE 5% (700 MG) TRANSDERMAL ADH..PATCH TP SCH (22:07)
[2017-08-28] MEDS: OXYCODONE-ACETAMINOPHEN 5-325 MG TABLET PO PRN ×5 (01:28→21:54)
[2017-08-28] MEDS: CEFAZOLIN SODIUM 2 GM in NORMAL SALINE 100 ML IV SCH ×4 (02:17→17:25)
[2017-08-28] MEDS: FENTANYL CITRATE INJ/PF 100 MCG/2 ML AMPUL IV PRN ×3 (02:40→20:02)
[2017-08-28] MEDS: GABAPENTIN 300 MG CAPSULE PO SCH ×3 (06:19→21:53)
[2017-08-28] MEDS: RIFAMPIN 300 MG CAPSULE PO SCH ×2 (10:07→21:53)
[2017-08-28] MEDS: PHARMACY COMMUNICATION ORDER MC SCH (10:07)
[2017-08-28] MEDS: DOCUSATE SODIUM 100 MG CAPSULE PO SCH ×2 (10:07→17:06)
[2017-08-28] MEDS: NORMAL SALINE 10 ML SDV (SCHEDULED) IV SCH ×2 (10:07→21:53)
[2017-08-28] MEDS: INSULIN LISPRO 100 UNIT/ML 3 ML VIAL SUBCUT PRN (12:04)
--- NOTE | 2017-08-28 15:16 | PDOC PROGRESS REPORT ---
Subjective Progress Note for:: 08/28/17 Subjective:: I seen patient resting in bed comfortably his not in pain or any form of cardiorespiratory distress he is awake alert and oriented. Reason For Visit: OSTEOMYELITIS OF T6/T7 AND EPIDURAL ABSCESS S/P Physical Exam Vital Signs: Temp Pulse Resp BP Pulse Ox 97.7 F 91 15 109/53 L 97 08/28/17 11:21 08/28/17 11:21 08/28/17 11:21 08/28/17 11:21 08/28/17 11:21 Intake & Output 08/27/17 08/28/17 08/29/17 06:59 06:59 06:59 Intake Total 1931 156 240 Balance 1931 1561 240 Weight 70.3 kg General appearance: PRESENT: no acute distress, well-developed, well-nourished Eye exam: PRESENT: conjunctiva pink, EOMI, PERRLA. ABSENT: scleral icterus Respiratory exam: PRESENT: clear to auscultation antonio. ABSENT: rales, rhonchi, wheezes Cardiovascular exam: PRESENT: RRR. ABSENT: diastolic murmur, rubs, systolic murmur GI/Abdominal exam: PRESENT: normal bowel sounds, soft. ABSENT: distended, guarding, mass, organolmegaly, rebound, tenderness Neurological exam: PRESENT: alert, awake, oriented to person, oriented to place , oriented to time, oriented to situation, CN II-XII grossly intact. ABSENT: motor sensory deficit Results Laboratory Results: 08/24/17 06:00 08/24/17 06:00 Impressions: Thoracic Spine X-Ray 08/19/17 00:00 IMPRESSION: Known discitis and osteomyelitis T6-7. Assessment & Plan - Diagnosis (1) Osteomyelitis Qualifiers: Osteomyelitis type: acute hematogenous Is this a current diagnosis for this admission?: Yes Plan: Patiently currently getting cefazolin and rifampin for methicillin sensitive staph aureus. The last dose of his antibiotics will be on September 08. (2) Sepsis Qualifiers: Sepsis type: methicillin susceptible Staphylococcus aureus Qualified Code(s ): A41.01 - Sepsis due to Methicillin susceptible Staphylococcus aureus Is this a current diagnosis for this admission?: Yes Plan: As #1 (3) Infective endocarditis Qualifiers: Infective endocarditis organism: bacterial Is this a current diagnosis for this admission?: Yes Plan: As # 1 (4) Diabetes 1.5, managed as type 2 Is this a current diagnosis for this admission?: Yes Plan: Continue current regimen
[2017-08-28] MEDS: IBUPROFEN 800 MG TABLET PO PRN (20:02)
[2017-08-28] MEDS: NICOTINE 14 MG/24 HR PATCH.TD24 TD SCH (20:04)
[2017-08-28] MEDS: LIDOCAINE 5% (700 MG) TRANSDERMAL ADH..PATCH TP SCH (21:54)
[2017-08-29] MEDS: FENTANYL CITRATE INJ/PF 100 MCG/2 ML AMPUL IV PRN ×2 (03:35→20:13)
[2017-08-29] MEDS: CEFAZOLIN SODIUM 2 GM in NORMAL SALINE 100 ML IV SCH ×4 (03:35→17:20)
[2017-08-29] MEDS: OXYCODONE-ACETAMINOPHEN 5-325 MG TABLET PO PRN ×5 (03:37→22:44)
[2017-08-29] MEDS: GABAPENTIN 300 MG CAPSULE PO SCH ×3 (06:07→22:44)
[2017-08-29] MEDS: RIFAMPIN 300 MG CAPSULE PO SCH ×2 (09:49→22:44)
[2017-08-29] MEDS: PHARMACY COMMUNICATION ORDER MC SCH (09:50)
[2017-08-29] MEDS: NORMAL SALINE 10 ML SDV (SCHEDULED) IV SCH ×2 (09:50→22:45)
[2017-08-29] MEDS: DOCUSATE SODIUM 100 MG CAPSULE PO SCH ×2 (09:50→17:19)
--- NOTE | 2017-08-29 16:53 | PDOC PROGRESS REPORT ---
Subjective Progress Note for:: 08/29/17 Subjective:: Chatting in the dozier, no acute distress Reason For Visit: OSTEOMYELITIS OF T6/T7 AND EPIDURAL ABSCESS S/P Physical Exam Vital Signs: Temp Pulse Resp BP Pulse Ox 97.8 F 90 17 112/78 100 08/29/17 12:00 08/29/17 12:00 08/29/17 12:00 08/29/17 12:00 08/29/17 12:00 Intake & Output 08/28/17 08/29/17 08/30/17 06:59 06:59 06:59 Intake Total 1562 1292 Balance 1562 1292 Weight 70 kg General appearance: PRESENT: no acute distress Respiratory exam: PRESENT: clear to auscultation antonio Cardiovascular exam: PRESENT: RRR GI/Abdominal exam: PRESENT: soft Neurological exam: PRESENT: alert Psychiatric exam: PRESENT: normal mood Skin exam: PRESENT: warm Results Laboratory Results: 08/24/17 06:00 08/24/17 06:00 Impressions: Thoracic Spine X-Ray 08/19/17 00:00 IMPRESSION: Known discitis and osteomyelitis T6-7. Assessment & Plan - Diagnosis (1) Discitis of lumbar region Is this a current diagnosis for this admission?: Yes Plan: Continue current antibiotics. Will need to complete 6 weeks. Because of his lifestyle risk of treatment failure is very high and so he requires continued inpatient treatment. (2) Bipolar 1 disorder Is this a current diagnosis for this admission?: Yes Plan: Though I note he is on no medications for this. He has been evaluated by psychiatry and was not started on anything. (3) Diabetes mellitus type 2 in nonobese Is this a current diagnosis for this admission?: Yes Plan: Continue to monitor and cover with sliding scale insulin (4) IVDU (intravenous drug user) Is this a current diagnosis for this admission?: Yes Plan: Makes me uncomfortable that he goes outside to smoke with a PICC line, however he has not exhibited evidence of use, and I feel we need to work with them in order to get him to stay in the hospital and complete treatment. (5) Amphetamine abuse Is this a current diagnosis for this admission?: Yes (6) Polysubstance abuse Is this a current diagnosis for this admission?: Yes
[2017-08-29] MEDS: IBUPROFEN 800 MG TABLET PO PRN (20:14)
[2017-08-29] MEDS: NICOTINE 14 MG/24 HR PATCH.TD24 TD SCH (20:16)
[2017-08-29] MEDS: LIDOCAINE 5% (700 MG) TRANSDERMAL ADH..PATCH TP SCH (22:47)
[2017-08-30] MEDS: OXYCODONE-ACETAMINOPHEN 5-325 MG TABLET PO PRN ×4 (02:46→15:29)
[2017-08-30] MEDS: CEFAZOLIN SODIUM 2 GM in NORMAL SALINE 100 ML IV SCH ×4 (03:47→17:39)
[2017-08-30] MEDS: FENTANYL CITRATE INJ/PF 100 MCG/2 ML AMPUL IV PRN ×3 (03:48→17:38)
[2017-08-30] MEDS: GABAPENTIN 300 MG CAPSULE PO SCH ×3 (06:10→22:40)
[2017-08-30] MEDS: INSULIN LISPRO 100 UNIT/ML 3 ML VIAL SUBCUT PRN ×3 (08:41→23:08)
[2017-08-30] MEDS: NORMAL SALINE 10 ML SDV (SCHEDULED) IV SCH ×2 (09:41→22:41)
[2017-08-30] MEDS: NORMAL SALINE 10 ML SDV (AFTER EACH USE) IV PRN (09:41)
[2017-08-30] MEDS: RIFAMPIN 300 MG CAPSULE PO SCH ×2 (09:41→22:40)
[2017-08-30] MEDS: DOCUSATE SODIUM 100 MG CAPSULE PO SCH ×2 (09:43→17:39)
[2017-08-30] MEDS: PHARMACY COMMUNICATION ORDER MC SCH (09:43)
--- NOTE | 2017-08-30 13:30 | PDOC PROGRESS REPORT ---
Subjective Progress Note for:: 08/30/17 Subjective:: Complaining of right knee pain. Reason For Visit: OSTEOMYELITIS OF T6/T7 AND EPIDURAL ABSCESS S/P Physical Exam Vital Signs: Temp Pulse Resp BP Pulse Ox 97.9 F 104 H 16 131/79 H 99 08/30/17 08:00 08/30/17 08:00 08/30/17 08:00 08/30/17 08:00 08/30/17 08:00 Intake & Output 08/29/17 08/30/17 08/31/17 06:59 06:59 06:59 Intake Total 1292 2203 Balance 1292 2203 Weight 70 kg 73.9 kg General appearance: PRESENT: no acute distress Respiratory exam: PRESENT: clear to auscultation antonio Cardiovascular exam: PRESENT: RRR GI/Abdominal exam: PRESENT: soft Extremities exam: PRESENT: joint swelling - His right knee is mildly swollen. Tender along the medial aspect. Not red. No apparent effusion. Neurological exam: PRESENT: alert, oriented to person, oriented to place, oriented to time Psychiatric exam: PRESENT: normal mood Results Laboratory Results: 08/24/17 06:00 08/24/17 06:00 Impressions: Thoracic Spine X-Ray 08/19/17 00:00 IMPRESSION: Known discitis and osteomyelitis T6-7. Assessment & Plan - Diagnosis (1) Discitis of lumbar region Is this a current diagnosis for this admission?: Yes Plan: Continue current antibiotics. Will need to complete 6 weeks. The last dose of his antibiotics will be on September 08. Because of his lifestyle risk of treatment failure is very high and so he requires continued inpatient treatment. (2) Diabetes mellitus type 2 in nonobese Is this a current diagnosis for this admission?: Yes Plan: Continue to monitor and cover with sliding scale insulin (3) IVDU (intravenous drug user) Is this a current diagnosis for this admission?: Yes Plan: Makes me uncomfortable that he goes outside to smoke with a PICC line, however he has not exhibited evidence of use, and I feel we need to work with them in order to get him to stay in the hospital and complete treatment. (4) Amphetamine abuse Is this a current diagnosis for this admission?: Yes (5) Polysubstance abuse Is this a current diagnosis for this admission?: Yes (6) Right knee pain Qualifiers: Chronicity: acute Qualified Code(s): M25.561 - Pain in right knee Is this a current diagnosis for this admission?: Yes Plan: Appears to be a long-standing issue for him looking back through the records. Has previously been evaluated by orthopedics. Knee does not appear septic. I would agree with orthopedics previous assessment that this is degenerative joint disease and he needs to keep it elevated, keep off it, and use an ice bag as needed.
[2017-08-30] MEDS: NICOTINE 14 MG/24 HR PATCH.TD24 TD SCH (19:41)
[2017-08-30] MEDS: LIDOCAINE 5% (700 MG) TRANSDERMAL ADH..PATCH TP SCH (23:08)
[2017-08-31] MEDS: NORMAL SALINE 10 ML SDV (AFTER EACH USE) IV PRN ×2 (02:36→19:54)
[2017-08-31] MEDS: OXYCODONE-ACETAMINOPHEN 5-325 MG TABLET PO PRN ×5 (03:53→21:34)
[2017-08-31] MEDS: CEFAZOLIN SODIUM 2 GM in NORMAL SALINE 100 ML IV SCH (03:55)
[2017-08-31] MEDS: GABAPENTIN 300 MG CAPSULE PO SCH ×3 (06:01→21:35)
[2017-08-31] MEDS: CEFAZOLIN SODIUM 2 GM in DEXTROSE 5%-WATER 100 ML IV SCH ×3 (06:01→18:54)
[2017-08-31] MEDS: RIFAMPIN 300 MG CAPSULE PO SCH ×2 (09:33→21:36)
[2017-08-31] MEDS: NORMAL SALINE 10 ML SDV (SCHEDULED) IV SCH ×2 (09:34→21:35)
[2017-08-31] MEDS: DOCUSATE SODIUM 100 MG CAPSULE PO SCH ×2 (09:35→17:42)
[2017-08-31] MEDS: INSULIN LISPRO 100 UNIT/ML 3 ML VIAL SUBCUT PRN (12:05)
--- NOTE | 2017-08-31 16:02 | PDOC PROGRESS REPORT ---
Subjective Progress Note for:: 08/31/17 Subjective:: No new issues Reason For Visit: OSTEOMYELITIS OF T6/T7 AND EPIDURAL ABSCESS S/P Physical Exam Vital Signs: Temp Pulse Resp BP Pulse Ox 97.7 F 94 16 114/55 L 100 08/30/17 23:18 08/30/17 23:18 08/30/17 23:18 08/30/17 23:18 08/30/17 23:18 Intake & Output 08/30/17 08/31/17 09/01/17 06:59 06:59 06:59 Intake Total 2203 2194 690 Balance 2203 2194 690 Weight 73.9 kg 72.1 kg General appearance: PRESENT: no acute distress Respiratory exam: PRESENT: clear to auscultation antonio Cardiovascular exam: PRESENT: RRR GI/Abdominal exam: PRESENT: soft Neurological exam: PRESENT: alert Psychiatric exam: PRESENT: appropriate affect Skin exam: PRESENT: warm Results Laboratory Results: 08/24/17 06:00 08/24/17 06:00 Impressions: Thoracic Spine X-Ray 08/19/17 00:00 IMPRESSION: Known discitis and osteomyelitis T6-7. Assessment & Plan - Diagnosis (1) Discitis of lumbar region Is this a current diagnosis for this admission?: Yes Plan: Continue current antibiotics. Will need to complete 6 weeks. The last dose of his antibiotics will be on September 08. Because of his lifestyle risk of treatment failure is very high and so he requires continued inpatient treatment. (2) Diabetes mellitus type 2 in nonobese Is this a current diagnosis for this admission?: Yes Plan: Continue to monitor and cover with sliding scale insulin (3) IVDU (intravenous drug user) Is this a current diagnosis for this admission?: Yes Plan: Makes me uncomfortable that he goes outside to smoke with a PICC line, however he has not exhibited evidence of use, and I feel we need to work with them in order to get him to stay in the hospital and complete treatment. (4) Amphetamine abuse Is this a current diagnosis for this admission?: Yes (5) Polysubstance abuse Is this a current diagnosis for this admission?: Yes (6) Right knee pain Qualifiers: Chronicity: acute Qualified Code(s): M25.561 - Pain in right knee Is this a current diagnosis for this admission?: Yes Plan: Appears to be a long-standing issue for him looking back through the records. Has previously been evaluated by orthopedics. Knee does not appear septic. I would agree with orthopedics previous assessment that this is degenerative joint disease and he needs to keep it elevated, keep off it, and use an ice bag as needed.
[2017-08-31] MEDS: NICOTINE 14 MG/24 HR PATCH.TD24 TD SCH (19:55)
[2017-08-31] MEDS: LIDOCAINE 5% (700 MG) TRANSDERMAL ADH..PATCH TP SCH (21:35)
[2017-09-01] MEDS: CEFAZOLIN SODIUM 2 GM in DEXTROSE 5%-WATER 100 ML IV SCH ×4 (00:41→18:59)
[2017-09-01] MEDS: NORMAL SALINE 10 ML SDV (AFTER EACH USE) IV PRN ×2 (01:33→06:37)
[2017-09-01] MEDS: OXYCODONE-ACETAMINOPHEN 5-325 MG TABLET PO PRN ×5 (01:38→19:52)
[2017-09-01] MEDS: GABAPENTIN 300 MG CAPSULE PO SCH ×3 (05:42→22:17)
[2017-09-01] MEDS: DOCUSATE SODIUM 100 MG CAPSULE PO SCH ×2 (09:14→16:52)
[2017-09-01] MEDS: RIFAMPIN 300 MG CAPSULE PO SCH ×2 (11:15→22:17)
[2017-09-01] MEDS: NORMAL SALINE 10 ML SDV (SCHEDULED) IV SCH (11:16)
[2017-09-01] MEDS: IBUPROFEN 800 MG TABLET PO PRN ×3 (11:49→19:51)
--- NOTE | 2017-09-01 14:00 | PDOC PROGRESS REPORT ---
Subjective Progress Note for:: 09/01/17 Subjective:: Complains of his right eye being red and itchy Reason For Visit: OSTEOMYELITIS OF T6/T7 AND EPIDURAL ABSCESS S/P Physical Exam Vital Signs: Temp Pulse Resp BP Pulse Ox 98.4 F 86 16 124/79 100 09/01/17 11:39 09/01/17 11:39 09/01/17 11:39 09/01/17 11:39 09/01/17 11:39 Intake & Output 08/31/17 09/01/17 09/02/17 06:59 06:59 06:59 Intake Total 2194 1790 Balance 2194 1790 Weight 72.1 kg 69.3 kg General appearance: PRESENT: no acute distress Eye exam: PRESENT: conjunctival injection Respiratory exam: PRESENT: clear to auscultation antonio Cardiovascular exam: PRESENT: RRR GI/Abdominal exam: PRESENT: soft Extremities exam: PRESENT: joint swelling - Right knee mildly swollen, tenderness Neurological exam: PRESENT: alert Psychiatric exam: PRESENT: appropriate affect Skin exam: PRESENT: warm Results Laboratory Results: 08/24/17 06:00 08/24/17 06:00 Impressions: Thoracic Spine X-Ray 08/19/17 00:00 IMPRESSION: Known discitis and osteomyelitis T6-7. Assessment & Plan - Diagnosis (1) Discitis of lumbar region Is this a current diagnosis for this admission?: Yes Plan: Continue current antibiotics. Will need to complete 6 weeks. The last dose of his antibiotics will be on September 08. Because of his lifestyle risk of treatment failure is very high and so he requires continued inpatient treatment. (2) Diabetes mellitus type 2 in nonobese Is this a current diagnosis for this admission?: Yes Plan: Continue to monitor and cover with sliding scale insulin (3) IVDU (intravenous drug user) Is this a current diagnosis for this admission?: Yes Plan: Makes me uncomfortable that he goes outside to smoke with a PICC line, however he has not exhibited evidence of use, and I feel we need to work with them in order to get him to stay in the hospital and complete treatment. (4) Amphetamine abuse Is this a current diagnosis for this admission?: Yes (5) Polysubstance abuse Is this a current diagnosis for this admission?: Yes (6) Right knee pain Qualifiers: Chronicity: acute Qualified Code(s): M25.561 - Pain in right knee Is this a current diagnosis for this admission?: Yes Plan: Appears to be a long-standing issue for him looking back through the records. Has previously been evaluated by orthopedics. Knee does not appear septic. I would agree with orthopedics previous assessment that this is degenerative joint disease and he needs to keep it elevated, keep off it, and use an ice bag as needed. (7) Conjunctivitis Qualifiers: Conjunctivitis type: acute Laterality: right Is this a current diagnosis for this admission?: Yes Plan: gentamicin eye drops
[2017-09-01] MEDS ORDERED: GENTAMICIN SULFATE 0.3% OPH SOLN 5 ML OU ONE (15:30)
[2017-09-01] MEDS: GENTAMICIN SULFATE 0.3% OPH SOLN 5 ML OU SCH ×2 (18:59→22:17)
[2017-09-01] MEDS: NICOTINE 14 MG/24 HR PATCH.TD24 TD SCH (19:02)
[2017-09-01] MEDS: LIDOCAINE 5% (700 MG) TRANSDERMAL ADH..PATCH TP SCH (22:17)
[2017-09-02] MEDS: CEFAZOLIN SODIUM 2 GM in DEXTROSE 5%-WATER 100 ML IV SCH ×5 (00:11→23:06)
[2017-09-02] MEDS: IBUPROFEN 800 MG TABLET PO PRN ×6 (00:37→21:06)
[2017-09-02] MEDS: OXYCODONE-ACETAMINOPHEN 5-325 MG TABLET PO PRN ×6 (00:37→21:07)
[2017-09-02] MEDS: GENTAMICIN SULFATE 0.3% OPH SOLN 5 ML OU SCH ×6 (01:47→21:05)
[2017-09-02] MEDS: GABAPENTIN 300 MG CAPSULE PO SCH ×3 (06:26→21:06)
[2017-09-02] MEDS: INSULIN LISPRO 100 UNIT/ML 3 ML VIAL SUBCUT PRN (06:44)
[2017-09-02] MEDS: DOCUSATE SODIUM 100 MG CAPSULE PO SCH ×2 (10:00→16:49)
[2017-09-02] MEDS: RIFAMPIN 300 MG CAPSULE PO SCH ×2 (10:00→21:06)
--- NOTE | 2017-09-02 13:45 | PDOC PROGRESS REPORT ---
Subjective Progress Note for:: 09/02/17 Subjective:: No new complaints Reason For Visit: OSTEOMYELITIS OF T6/T7 AND EPIDURAL ABSCESS S/P Physical Exam Vital Signs: Temp Pulse Resp BP Pulse Ox 98.2 F 81 12 127/74 H 100 09/02/17 12:54 09/02/17 12:54 09/02/17 12:54 09/02/17 12:54 09/02/17 12:54 Intake & Output 09/01/17 09/02/17 09/03/17 06:59 06:59 06:59 Intake Total 1790 1728 Balance 1790 1728 Weight 69.3 kg 69.1 kg General appearance: PRESENT: no acute distress Respiratory exam: PRESENT: clear to auscultation antonio Cardiovascular exam: PRESENT: RRR GI/Abdominal exam: PRESENT: soft Extremities exam: PRESENT: tenderness - Right knee remains a little tender along the medial side. Ibuprofen seems to be helping Neurological exam: PRESENT: alert Skin exam: PRESENT: warm Results Laboratory Results: 08/24/17 06:00 08/24/17 06:00 Impressions: Thoracic Spine X-Ray 08/19/17 00:00 IMPRESSION: Known discitis and osteomyelitis T6-7. Assessment & Plan - Diagnosis (1) Discitis of lumbar region Is this a current diagnosis for this admission?: Yes Plan: Continue current antibiotics. Will need to complete 6 weeks. The last dose of his antibiotics will be on September 08. Because of his lifestyle, risk of treatment failure is very high and so he requires continued inpatient treatment. (2) Diabetes mellitus type 2 in nonobese Is this a current diagnosis for this admission?: Yes Plan: Is requesting to go back on metformin twice daily in hopes of being able to resume a regular diet. I will put him back on his previous dose of metformin and otherwise continue to monitor and cover with sliding scale insulin (3) IVDU (intravenous drug user) Is this a current diagnosis for this admission?: Yes Plan: Makes me uncomfortable that he goes outside to smoke with a PICC line, however he has not exhibited evidence of use, and I feel we need to work with them in order to get him to stay in the hospital and complete treatment. (4) Amphetamine abuse Is this a current diagnosis for this admission?: Yes (5) Polysubstance abuse Is this a current diagnosis for this admission?: Yes (6) Right knee pain Qualifiers: Chronicity: acute Qualified Code(s): M25.561 - Pain in right knee Is this a current diagnosis for this admission?: Yes Plan: Appears to be a long-standing issue for him looking back through the records. Has previously been evaluated by orthopedics. Knee does not appear septic. I would agree with orthopedics previous assessment that this is degenerative joint disease and he needs to keep it elevated, keep off it, take Motrin and use an ice bag as needed. (7) Conjunctivitis Qualifiers: Conjunctivitis type: acute Laterality: right Is this a current diagnosis for this admission?: Yes Plan: gentamicin eye drops
[2017-09-02] MEDS: METFORMIN HCL 500 MG TABLET PO SCH (16:49)
[2017-09-03] MEDS: IBUPROFEN 800 MG TABLET PO PRN ×2 (01:26→05:50)
[2017-09-03] MEDS: GENTAMICIN SULFATE 0.3% OPH SOLN 5 ML OU SCH ×6 (01:26→22:30)
[2017-09-03] MEDS: OXYCODONE-ACETAMINOPHEN 5-325 MG TABLET PO PRN ×4 (01:26→14:15)
[2017-09-03] MEDS: CEFAZOLIN SODIUM 2 GM in DEXTROSE 5%-WATER 100 ML IV SCH ×4 (05:49→23:35)
[2017-09-03] MEDS: GABAPENTIN 300 MG CAPSULE PO SCH ×3 (05:49→22:31)
[2017-09-03] MEDS: METFORMIN HCL 500 MG TABLET PO SCH ×2 (08:37→16:51)
[2017-09-03] MEDS: RIFAMPIN 300 MG CAPSULE PO SCH ×2 (10:17→22:31)
[2017-09-03] MEDS: LACTOBACILLUS ACIDOPHILUS 250 MG TAB PO SCH (17:25)
[2017-09-03] MEDS: OXYCODONE HCL IR 5 MG TABLET PO PRN ×2 (18:24→22:31)
[2017-09-04] MEDS: GENTAMICIN SULFATE 0.3% OPH SOLN 5 ML OU SCH ×6 (02:57→21:34)
[2017-09-04] MEDS: OXYCODONE HCL IR 5 MG TABLET PO PRN ×5 (03:21→21:34)
[2017-09-04 05:43] LABS: ABSOLUTE EOSINOPHILS # (AUTO) 0.4 10^3/uL (0.0-0.6); ABSOLUTE LYMPHOCYTES (AUTO) 3.8 10^3/uL (0.5-4.7); ABSOLUTE MONOCYTES (AUTO) 0.6 10^3/uL (0.1-1.4); BASOPHILS % (AUTO) 0.4 % (0-2); HEMATOCRIT 38.5 % (37.9-51.0); HEMOGLOBIN 12.8 g/dL (13.5-17.0); LYMPHOCYTES % (AUTO) 42.5 % (13-45); MEAN CORPUSCULAR HEMOGLOBIN 28.7 pg (27.0-33.4); MEAN CORPUSCULAR HGB CONC 33.3 g/dL (32.0-36.0); MEAN CORPUSCULAR VOLUME 86 fl (80-97); MONOCYTES % (AUTO) 7.1 % (3-13); PLATELET COUNT 240 10^3/uL (150-450); RED BLOOD COUNT 4.47 10^6/uL (4.35-5.55); RED CELL DISTRIBUTION WIDTH 21.6 % (11.5-14.0); TOTAL CELLS COUNTED % (AUTO) 100 %
[2017-09-04] MEDS: CEFAZOLIN SODIUM 2 GM in DEXTROSE 5%-WATER 100 ML IV SCH ×4 (05:45→22:54)
[2017-09-04] MEDS: GABAPENTIN 300 MG CAPSULE PO SCH ×3 (05:45→21:33)
[2017-09-04 06:07] LABS: ANISOCYTOSIS 2+; PLATELET CLUMPS PRESENT; PLATELET COMMENT ADEQUATE; PLATELET LARGE PRESENT; SCHISTOCYTES SLIGHT; TOXIC GRANULATION 1+
[2017-09-04 06:11] LABS: ALANINE AMINOTRANSFERASE 29 U/L (21-72); ALBUMIN 3.9 g/dL (3.5-5.0); ALKALINE PHOSPHATASE 106 U/L (38-126); ANION GAP 11 (5-19); ASPARTATE AMINO TRANSFERASE 40 U/L (17-59); BILIRUBIN,DIRECT 0.3 mg/dL (0.0-0.4); BILIRUBIN,TOTAL 0.3 mg/dL (0.2-1.3); BLOOD UREA NITROGEN 13 mg/dL (7-20); C-REACTIVE PROTEIN 6.6 mg/L (<10.0); CALCIUM 9.5 mg/dL (8.4-10.2); CARBON DIOXIDE 26 mmol/L (22-30); CHLORIDE 106 mmol/L (98-107); GLUCOSE 145 mg/dL (75-110); PHOSPHORUS 4.3 mg/dL (2.5-4.5); POTASSIUM 3.8 mmol/L (3.6-5.0); SODIUM 142.9 mmol/L (137-145); TOTAL PROTEIN 7.7 g/dL (6.3-8.2)
[2017-09-04] MEDS: METFORMIN HCL 500 MG TABLET PO SCH ×2 (08:16→16:47)
[2017-09-04] MEDS: LACTOBACILLUS ACIDOPHILUS 250 MG TAB PO SCH ×2 (09:19→16:47)
[2017-09-04] MEDS: RIFAMPIN 300 MG CAPSULE PO SCH ×2 (09:19→21:33)
[2017-09-04] MEDS ORDERED: NORMAL SALINE 10 ML SDV (AFTER EACH USE) IV PRN (14:47)
--- NOTE | 2017-09-04 16:11 | PDOC PROGRESS REPORT ---
Subjective Progress Note for:: 09/03/17 Subjective:: 47-year-old male [id number] diabetes and history of polysubstance abuse including IV drugs who is currently admitted for steel myelitis of T6-T7 and epidural abscess status post aspiration at [facility]. 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 He is currently on Ancef and rifampicin. Reason For Visit: OSTEOMYELITIS OF T6/T7 AND EPIDURAL ABSCESS S/P Physical Exam Vital Signs: Temp Pulse Resp BP Pulse Ox 97.6 F 94 18 120/79 99 09/03/17 11:22 09/03/17 11:22 09/03/17 11:22 09/03/17 11:22 09/03/17 11:22 Intake & Output 09/02/17 09/03/17 09/04/17 06:59 06:59 06:59 Intake Total 1728 2124 Balance 1728 2124 Weight 69.1 kg 69 kg General appearance: PRESENT: no acute distress Ear exam: PRESENT: normal external ear exam Mouth exam: PRESENT: moist Teeth exam: PRESENT: poor dentation Cardiovascular exam: PRESENT: RRR GI/Abdominal exam: PRESENT: normal bowel sounds, soft. ABSENT: tenderness Rectal exam: PRESENT: deferred Extremities exam: ABSENT: pedal edema Neurological exam: PRESENT: alert, awake, oriented to person, oriented to place , oriented to time Psychiatric exam: PRESENT: appropriate affect Results Laboratory Results: 08/24/17 06:00 08/24/17 06:00 Impressions: Thoracic Spine X-Ray 08/19/17 00:00 IMPRESSION: Known discitis and osteomyelitis T6-7. Assessment & Plan - Diagnosis (1) Discitis of lumbar region Is this a current diagnosis for this admission?: Yes Plan: Continue antibiotics and analgesics as needed. (2) IVDU (intravenous drug user) Is this a current diagnosis for this admission?: Yes Plan: Abstinence recommended. (3) Diabetes mellitus Qualifiers: Diabetes mellitus type: type 2 Is this a current diagnosis for this admission?: Yes Plan: On metformin. (4) Polysubstance abuse Is this a current diagnosis for this admission?: Yes Plan: Abstinence recommended. - Time Time Spent with patient: 25-34 minutes
--- NOTE | 2017-09-04 16:14 | PDOC PROGRESS REPORT ---
Subjective Progress Note for:: 09/04/17 Subjective:: 47-year-old male [id number] diabetes and history of polysubstance abuse including IV drugs who is currently admitted for steel myelitis of T6-T7 and epidural abscess status post aspiration at [facility]. 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 He is currently on Ancef and rifampicin. No complaints Reason For Visit: OSTEOMYELITIS OF T6/T7 AND EPIDURAL ABSCESS S/P Physical Exam Vital Signs: Temp Pulse Resp BP Pulse Ox 97.9 F 103 H 17 120/72 99 09/04/17 11:40 09/04/17 11:40 09/04/17 11:40 09/04/17 11:40 09/04/17 11:40 Intake & Output 09/03/17 09/04/17 09/05/17 06:59 06:59 06:59 Intake Total 2124 4936 Balance 2124 4936 Weight 69 kg 69.1 kg General appearance: PRESENT: no acute distress Head exam: PRESENT: normocephalic Eye exam: PRESENT: periorbital swelling Mouth exam: PRESENT: moist Neck exam: ABSENT: tenderness Respiratory exam: PRESENT: symmetrical, unlabored Cardiovascular exam: PRESENT: RRR GI/Abdominal exam: PRESENT: normal bowel sounds, soft. ABSENT: tenderness Rectal exam: PRESENT: deferred Extremities exam: ABSENT: pedal edema Neurological exam: PRESENT: alert, awake, oriented to person, oriented to place , oriented to time Psychiatric exam: PRESENT: appropriate affect Results Laboratory Results: 09/04/17 04:28 09/04/17 04:28 09/04/17 09/04/17 04:28 04:28 WBC 9.0 RBC 4.47 Hgb 12.8 L Hct 38.5 MCV 86 MCH 28.7 MCHC 33.3 RDW 21.6 H Plt Count 240 Seg Neutrophils % 45.0 Lymphocytes % 42.5 Monocytes % 7.1 Eosinophils % 5.0 Basophils % 0.4 Absolute Neutrophils 4.0 Absolute Lymphocytes 3.8 Absolute Monocytes 0.6 Absolute Eosinophils 0.4 Absolute Basophils 0.0 Sodium 142.9 Potassium 3.8 Chloride 106 Carbon Dioxide 26 Anion Gap 11 BUN 13 Creatinine 0.51 L Est GFR ( Amer) > 60 Est GFR (Non-Af Amer) > 60 Glucose 145 H Calcium 9.5 Phosphorus 4.3 Magnesium 1.7 Total Bilirubin 0.3 AST 40 ALT 29 Alkaline Phosphatase 106 C-Reactive Protein 6.6 Total Protein 7.7 Albumin 3.9 Impressions: Thoracic Spine X-Ray 08/19/17 00:00 IMPRESSION: Known discitis and osteomyelitis T6-7. Assessment & Plan - Diagnosis (1) Discitis of lumbar region Is this a current diagnosis for this admission?: Yes Plan: Continue antibiotics and analgesics as needed. (2) IVDU (intravenous drug user) Is this a current diagnosis for this admission?: Yes Plan: Abstinence recommended. (3) Diabetes mellitus Qualifiers: Diabetes mellitus type: type 2 Is this a current diagnosis for this admission?: Yes Plan: On metformin. (4) Polysubstance abuse Is this a current diagnosis for this admission?: Yes Plan: Abstinence recommended. - Time Time Spent with patient: 25-34 minutes
[2017-09-04] MEDS: NORMAL SALINE 10 ML SDV (SCHEDULED) IV SCH (21:34)
[2017-09-05] MEDS: GENTAMICIN SULFATE 0.3% OPH SOLN 5 ML OU SCH ×6 (02:31→21:23)
[2017-09-05] MEDS: OXYCODONE HCL IR 5 MG TABLET PO PRN ×5 (03:02→21:02)
[2017-09-05] MEDS: GABAPENTIN 300 MG CAPSULE PO SCH ×3 (05:14→21:02)
[2017-09-05] MEDS: CEFAZOLIN SODIUM 2 GM in DEXTROSE 5%-WATER 100 ML IV SCH ×4 (05:14→23:09)
[2017-09-05] MEDS: METFORMIN HCL 500 MG TABLET PO SCH ×2 (07:38→16:44)
[2017-09-05] MEDS: LACTOBACILLUS ACIDOPHILUS 250 MG TAB PO SCH ×2 (09:46→16:36)
[2017-09-05] MEDS: RIFAMPIN 300 MG CAPSULE PO SCH ×2 (09:46→21:02)
[2017-09-05] MEDS: NORMAL SALINE 10 ML SDV (SCHEDULED) IV SCH ×2 (09:47→21:02)
--- NOTE | 2017-09-05 15:27 | PDOC PROGRESS REPORT ---
Subjective Progress Note for:: 09/05/17 Subjective:: The patient is a 47-year-old male who was transferred back to our facility from [facility] for continued care of osteomyelitis at T6-T7. He is status post aspiration of an epidural abscess. 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 During that hospitalization the patient had been complaining of ongoing back pain. In any event he was eventually discharged to the after completing a course of antibiotic therapy. He represented to the hospital with severe back pain. This precipitated his transfer to [facility]. At this point he is receiving IV Ancef as well as rifampin which has been recommended by infectious disease. He is to complete his IV antibiotic therapy here in the hospital due to his history of IV drug use. He will be receiving IV antibiotics through September 08, 2017. Today when I saw the patient he continues to complain of knee pain. He states this has been evaluated by orthopedic surgery. Overall other than the knee pain he is doing well and has no complaints today Reason For Visit: OSTEOMYELITIS OF T6/T7 AND EPIDURAL ABSCESS S/P Physical Exam Vital Signs: Temp Pulse Resp BP Pulse Ox 97.8 F 95 18 113/63 100 09/05/17 11:34 09/05/17 11:34 09/05/17 11:34 09/05/17 11:34 09/05/17 11:34 Intake & Output 09/04/17 09/05/17 09/06/17 06:59 06:59 06:59 Intake Total 4936 2135 Balance 4936 2135 Weight 69.1 kg 69.2 kg General appearance: PRESENT: no acute distress, well-developed, well-nourished Head exam: PRESENT: atraumatic, normocephalic Eye exam: PRESENT: conjunctiva pink, EOMI, PERRLA. ABSENT: scleral icterus Mouth exam: PRESENT: moist, tongue midline Neck exam: ABSENT: carotid bruit, JVD, lymphadenopathy, thyromegaly Respiratory exam: PRESENT: clear to auscultation antonio. ABSENT: rales, rhonchi, wheezes Cardiovascular exam: PRESENT: RRR. ABSENT: diastolic murmur, rubs, systolic murmur GI/Abdominal exam: PRESENT: normal bowel sounds, soft. ABSENT: distended, guarding, mass, organolmegaly, rebound, tenderness Rectal exam: PRESENT: deferred Extremities exam: PRESENT: tenderness - Over right knee. ABSENT: calf tenderness, clubbing, pedal edema Musculoskeletal exam: PRESENT: ambulatory Neurological exam: PRESENT: alert, awake, oriented to person, oriented to place , oriented to time, oriented to situation, CN II-XII grossly intact. ABSENT: motor sensory deficit Psychiatric exam: PRESENT: appropriate affect, normal mood. ABSENT: homicidal ideation, suicidal ideation Skin exam: PRESENT: dry, intact, warm. ABSENT: cyanosis, rash Results Laboratory Results: 09/04/17 04:28 09/04/17 04:28 09/05/17 09:09 Phosphorus 4.8 H Impressions: Thoracic Spine X-Ray 08/19/17 00:00 IMPRESSION: Known discitis and osteomyelitis T6-7. Assessment & Plan - Diagnosis (1) Osteomyelitis Qualifiers: Osteomyelitis type: subacute Osteomyelitis location: unspecified site Qualified Code(s): M86.20 - Subacute osteomyelitis, unspecified site Is this a current diagnosis for this admission?: Yes Plan: Per infectious disease recommendations he will continue IV Ancef and rifampin through September 08, 2017. He seems to be tolerating it well. (2) IVDU (intravenous drug user) Is this a current diagnosis for this admission?: Yes Plan: It is unclear if the patient has quit using or not. He states he did not use any IV drugs after he got out of the hospital. He seems committed to quitting all drug use at this point. (3) Bacteremia Is this a current diagnosis for this admission?: Yes Plan: Repeat blood cultures have been negative. Continue IV Ancef. (4) Back pain Qualifiers: Back pain location: thoracic back pain Chronicity: acute Back pain laterality: bilateral Qualified Code(s): M54.6 - Pain in thoracic spine Is this a current diagnosis for this admission?: Yes Plan: Due to osteomyelitis. Improving slowly. (5) Diabetes mellitus type 2 in nonobese Is this a current diagnosis for this admission?: Yes Plan: Stable on current regimen (6) Anemia Qualifiers: Anemia type: iron deficiency Iron deficiency anemia type: inadequate dietary iron intake Qualified Code(s): D50.8 - Other iron deficiency anemias Is this a current diagnosis for this admission?: Yes Plan: Stable (7) Endocarditis Qualifiers: Endocarditis type: infective Is this a current diagnosis for this admission?: Yes Plan: He was treated for this during his previous hospitalization was out of the hospital for 2 weeks. Continue IV Ancef and rifampin (8) Arthrosis Is this a current diagnosis for this admission?: Yes Plan: He has been evaluated by orthopedic surgery regarding his knee pain. 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 (9) Full code status Is this a current diagnosis for this admission?: Yes - Time Time Spent with patient: 15-24 minutes - Inpatient Certification Medical Necessity: Need for IV Antibiotics - Inpatient hospitalization remains necessary for the patient to complete his IV antibiotic therapy. He will complete his therapy on 09/08/2017, Other
[2017-09-06] MEDS: GENTAMICIN SULFATE 0.3% OPH SOLN 5 ML OU SCH ×6 (01:47→21:59)
[2017-09-06] MEDS: OXYCODONE HCL IR 5 MG TABLET PO PRN ×6 (02:43→23:36)
[2017-09-06] MEDS: CEFAZOLIN SODIUM 2 GM in DEXTROSE 5%-WATER 100 ML IV SCH ×4 (05:26→23:36)
[2017-09-06] MEDS: GABAPENTIN 300 MG CAPSULE PO SCH ×3 (05:26→21:59)
[2017-09-06 07:50] LABS: ABSOLUTE EOSINOPHILS # (AUTO) 0.5 10^3/uL (0.0-0.6); ABSOLUTE LYMPHOCYTES (AUTO) 4.4 10^3/uL (0.5-4.7); ABSOLUTE MONOCYTES (AUTO) 0.7 10^3/uL (0.1-1.4); ABSOLUTE NEUT (AUTO) 4.8 10^3/uL (1.7-8.2); BASOPHILS % (AUTO) 0.3 % (0-2); EOSINOPHILS % (AUTO) 4.6 % (0-6); HEMATOCRIT 37.3 % (37.9-51.0); HEMOGLOBIN 12.7 g/dL (13.5-17.0); LYMPHOCYTES % (AUTO) 42.5 % (13-45); MEAN CORPUSCULAR HEMOGLOBIN 29.1 pg (27.0-33.4); MEAN CORPUSCULAR VOLUME 86 fl (80-97); MONOCYTES % (AUTO) 6.8 % (3-13); PLATELET COUNT 269 10^3/uL (150-450); RED BLOOD COUNT 4.35 10^6/uL (4.35-5.55); RED CELL DISTRIBUTION WIDTH 21.5 % (11.5-14.0); SEGMENTED NEUTROPHILS % (AUTO) 45.8 % (42-78); TOTAL CELLS COUNTED % (AUTO) 100 %; WHITE BLOOD COUNT 10.5 10^3/uL (4.0-10.5)
[2017-09-06 08:12] LABS: ALANINE AMINOTRANSFERASE 34 U/L (21-72); ALBUMIN 3.8 g/dL (3.5-5.0); ALKALINE PHOSPHATASE 103 U/L (38-126); ANION GAP 11 (5-19); ASPARTATE AMINO TRANSFERASE 33 U/L (17-59); BLOOD UREA NITROGEN 15 mg/dL (7-20); CALCIUM 9.4 mg/dL (8.4-10.2); CARBON DIOXIDE 25 mmol/L (22-30); CHLORIDE 106 mmol/L (98-107); GLUCOSE 129 mg/dL (75-110); POTASSIUM 4.2 mmol/L (3.6-5.0); TOTAL PROTEIN 7.5 g/dL (6.3-8.2)
[2017-09-06 08:15] LABS: BILIRUBIN,TOTAL < 0.1 mg/dL (0.2-1.3)
[2017-09-06 08:19] LABS: ANISOCYTOSIS 1+; OVALOCYTES SLIGHT; PLATELET COMMENT ADEQUATE; POIKILOCYTOSIS SLIGHT; TEAR DROP CELLS SLIGHT
[2017-09-06] MEDS: METFORMIN HCL 500 MG TABLET PO SCH ×2 (09:33→16:45)
[2017-09-06] MEDS: LACTOBACILLUS ACIDOPHILUS 250 MG TAB PO SCH ×2 (09:33→18:46)
[2017-09-06] MEDS: NORMAL SALINE 10 ML SDV (SCHEDULED) IV SCH ×2 (09:34→21:59)
[2017-09-06] MEDS: RIFAMPIN 300 MG CAPSULE PO SCH ×2 (09:37→21:59)
--- NOTE | 2017-09-06 17:31 | PDOC PROGRESS REPORT ---
Subjective Progress Note for:: 09/06/17 Subjective:: The patient is a 47-year-old male who was transferred back to our facility from [facility] for continued care of osteomyelitis at T6-T7. He is status post aspiration of an epidural abscess. 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 During that hospitalization the patient had been complaining of ongoing back pain. In any event he was eventually discharged to the after completing a course of antibiotic therapy. He represented to the hospital with severe back pain. This precipitated his transfer to [facility]. At this point he is receiving IV Ancef as well as rifampin which has been recommended by infectious disease. He is to complete his IV antibiotic therapy here in the hospital due to his history of IV drug use. He will be receiving IV antibiotics through September 08, 2017. Today when I saw the patient he continues to complain of knee pain. He states this has been evaluated by orthopedic surgery. Overall other than the knee pain he is doing well and has no complaints today Reason For Visit: OSTEOMYELITIS OF T6/T7 AND EPIDURAL ABSCESS S/P Physical Exam Vital Signs: Temp Pulse Resp BP Pulse Ox 97.9 F 88 20 125/72 100 09/06/17 15:21 09/06/17 15:21 09/06/17 15:21 09/06/17 15:21 09/06/17 15:21 Intake & Output 09/05/17 09/06/17 09/07/17 06:59 06:59 06:59 Intake Total 2135 1908 1080 Balance 2135 1908 1080 Weight 69.2 kg 69.4 kg General appearance: PRESENT: no acute distress, well-developed, well-nourished Head exam: PRESENT: atraumatic, normocephalic Mouth exam: PRESENT: moist, tongue midline Neck exam: ABSENT: carotid bruit, JVD, lymphadenopathy, thyromegaly Respiratory exam: PRESENT: clear to auscultation antonio. ABSENT: rales, rhonchi, wheezes Cardiovascular exam: PRESENT: RRR. ABSENT: diastolic murmur, rubs, systolic murmur GI/Abdominal exam: PRESENT: normal bowel sounds, soft. ABSENT: distended, guarding, mass, organolmegaly, rebound, tenderness Rectal exam: PRESENT: deferred Extremities exam: PRESENT: full ROM, joint swelling - Right knee is somewhat swollen. There is crepitus. He does have some pain with flexion and extension. ABSENT: calf tenderness, clubbing, pedal edema Neurological exam: PRESENT: alert, awake, oriented to person, oriented to place , oriented to time, oriented to situation, CN II-XII grossly intact. ABSENT: motor sensory deficit Psychiatric exam: PRESENT: appropriate affect, normal mood. ABSENT: homicidal ideation, suicidal ideation Skin exam: PRESENT: dry, intact, warm. ABSENT: cyanosis, rash Results Laboratory Results: 09/06/17 06:45 09/06/17 06:45 09/06/17 09/06/17 06:45 06:45 WBC 10.5 RBC 4.35 Hgb 12.7 L Hct 37.3 L MCV 86 MCH 29.1 MCHC 34.0 RDW 21.5 H Plt Count 269 Seg Neutrophils % 45.8 Lymphocytes % 42.5 Monocytes % 6.8 Eosinophils % 4.6 Basophils % 0.3 Absolute Neutrophils 4.8 Absolute Lymphocytes 4.4 Absolute Monocytes 0.7 Absolute Eosinophils 0.5 Absolute Basophils 0.0 Sodium 142.0 Potassium 4.2 Chloride 106 Carbon Dioxide 25 Anion Gap 11 BUN 15 Creatinine 0.49 L Est GFR ( Amer) > 60 Est GFR (Non-Af Amer) > 60 Glucose 129 H Calcium 9.4 Magnesium 1.8 Total Bilirubin < 0.1 L AST 33 ALT 34 Alkaline Phosphatase 103 Total Protein 7.5 Albumin 3.8 Impressions: Thoracic Spine X-Ray 08/19/17 00:00 IMPRESSION: Known discitis and osteomyelitis T6-7. Assessment & Plan - Diagnosis (1) Osteomyelitis Qualifiers: Osteomyelitis type: subacute Osteomyelitis location: unspecified site Qualified Code(s): M86.20 - Subacute osteomyelitis, unspecified site Is this a current diagnosis for this admission?: Yes Plan: Per infectious disease recommendations he will continue IV Ancef and rifampin through September 08, 2017. He seems to be tolerating it well. (2) IVDU (intravenous drug user) Is this a current diagnosis for this admission?: Yes Plan: It is unclear if the patient has quit using or not. He states he did not use any IV drugs after he got out of the hospital. He seems committed to quitting all drug use at this point. (3) Bacteremia Is this a current diagnosis for this admission?: Yes Plan: Repeat blood cultures have been negative. Continue IV Ancef. (4) Back pain Qualifiers: Back pain location: thoracic back pain Chronicity: acute Back pain laterality: bilateral Qualified Code(s): M54.6 - Pain in thoracic spine Is this a current diagnosis for this admission?: Yes Plan: Due to osteomyelitis. Improving slowly. (5) Diabetes mellitus type 2 in nonobese Is this a current diagnosis for this admission?: Yes Plan: Stable on current regimen (6) Anemia Qualifiers: Anemia type: iron deficiency Iron deficiency anemia type: inadequate dietary iron intake Qualified Code(s): D50.8 - Other iron deficiency anemias Is this a current diagnosis for this admission?: Yes Plan: Stable (7) Endocarditis Qualifiers: Endocarditis type: infective Is this a current diagnosis for this admission?: Yes Plan: The patient recently had tricuspid endocarditis. He was treated for this during his previous hospitalization and was out of the hospital for 2 weeks before this episode. Continue IV Ancef and rifampin (8) Arthrosis Is this a current diagnosis for this admission?: Yes Plan: He has been evaluated by orthopedic surgery regarding his knee pain. 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 He states these do not work very well. He states the oxycodone he takes helps somewhat. I am not going to escalate his narcotics. We will try some Voltaren gel. (9) Opiate dependence, continuous Is this a current diagnosis for this admission?: Yes Plan: For now he is on oxycodone 10 mg every 4 hours as needed. This seems to be working for him quite well. (10) Chronic pain Is this a current diagnosis for this admission?: Yes Plan: The patient has ongoing chronic knee pain and back pain. His narcotic regimen since the beginning of this hospitalization has been cut back. He does understand that he likely will have ongoing pain and that his narcotics will need to be cut back further. It may be difficult to get someone to prescribe them for him as an outpatient due to his underlying history. (11) Full code status Is this a current diagnosis for this admission?: Yes - Time Time Spent with patient: 25-34 minutes - Inpatient Certification Medical Necessity: Need for IV Antibiotics, Other - Inpatient hospitalization remains necessary for the patient to complete his IV antibiotics. He will be done on September 08, 2017 and can be discharged to the hospital at that time.
[2017-09-07] MEDS: GENTAMICIN SULFATE 0.3% OPH SOLN 5 ML OU SCH ×6 (02:12→22:29)
[2017-09-07] MEDS: OXYCODONE HCL IR 5 MG TABLET PO PRN ×5 (03:41→22:29)
[2017-09-07] MEDS: GABAPENTIN 300 MG CAPSULE PO SCH ×3 (06:07→22:30)
[2017-09-07] MEDS: METFORMIN HCL 500 MG TABLET PO SCH ×2 (07:49→18:15)
[2017-09-07] MEDS: NAPROXEN 375 MG TABLET PO SCH ×2 (07:49→18:14)
[2017-09-07] MEDS: NORMAL SALINE 10 ML SDV (SCHEDULED) IV SCH ×2 (09:58→22:30)
[2017-09-07] MEDS: LACTOBACILLUS ACIDOPHILUS 250 MG TAB PO SCH ×2 (11:19→18:15)
[2017-09-07] MEDS: RIFAMPIN 300 MG CAPSULE PO SCH ×2 (11:20→22:30)
--- NOTE | 2017-09-07 15:04 | PDOC PROGRESS REPORT ---
Subjective Progress Note for:: 09/07/17 Subjective:: No current complaints Reason For Visit: OSTEOMYELITIS OF T6/T7 AND EPIDURAL ABSCESS S/P Physical Exam Vital Signs: Temp Pulse Resp BP Pulse Ox 98.0 F 94 18 103/64 99 09/07/17 11:25 09/07/17 11:25 09/07/17 11:25 09/07/17 11:25 09/07/17 11:25 Intake & Output 09/06/17 09/07/17 09/08/17 06:59 06:59 06:59 Intake Total 1908 2511 640 Balance 190 2511 640 Weight 69.4 kg 67.5 kg General appearance: PRESENT: no acute distress Respiratory exam: PRESENT: clear to auscultation antonio Cardiovascular exam: PRESENT: RRR GI/Abdominal exam: PRESENT: soft Neurological exam: PRESENT: alert Psychiatric exam: PRESENT: appropriate affect Skin exam: PRESENT: warm Results Laboratory Results: 09/06/17 06:45 09/06/17 06:45 Impressions: Thoracic Spine X-Ray 08/19/17 00:00 IMPRESSION: Known discitis and osteomyelitis T6-7. Assessment & Plan - Diagnosis (1) Discitis of lumbar region Is this a current diagnosis for this admission?: Yes Plan: Continue current antibiotics. Will need to complete 6 weeks. The last dose of his antibiotics will be on September 08. Because of his lifestyle, risk of treatment failure is very high and so he requires continued inpatient treatment. (2) Diabetes mellitus type 2 in nonobese Is this a current diagnosis for this admission?: Yes Plan: Is requesting to go back on metformin twice daily in hopes of being able to resume a regular diet. I will put him back on his previous dose of metformin and otherwise continue to monitor and cover with sliding scale insulin (3) IVDU (intravenous drug user) Is this a current diagnosis for this admission?: Yes Plan: Makes me uncomfortable that he goes outside to smoke with a PICC line, however he has not exhibited evidence of use, and I feel we need to work with them in order to get him to stay in the hospital and complete treatment. (4) Polysubstance abuse Is this a current diagnosis for this admission?: Yes (5) Right knee pain Qualifiers: Chronicity: acute Qualified Code(s): M25.561 - Pain in right knee Is this a current diagnosis for this admission?: Yes Plan: Appears to be a long-standing issue for him looking back through the records. Has previously been evaluated by orthopedics. Knee does not appear septic. I would agree with orthopedics previous assessment that this is degenerative joint disease and he needs to keep it elevated, keep off it, take naproxen and use an ice bag as needed. (6) Conjunctivitis Qualifiers: Conjunctivitis type: acute Laterality: right Is this a current diagnosis for this admission?: Yes Plan: gentamicin eye drops
[2017-09-07] MEDS: CEFAZOLIN 1 GM/D5W RTU 1 GM/50 ML RTUPB IV SCH (18:14)
[2017-09-08] MEDS: CEFAZOLIN 1 GM/D5W RTU 1 GM/50 ML RTUPB IV SCH ×2 (00:01→05:48)
[2017-09-08] MEDS: OXYCODONE HCL IR 5 MG TABLET PO PRN ×2 (03:26→08:16)
[2017-09-08] MEDS: GENTAMICIN SULFATE 0.3% OPH SOLN 5 ML OU SCH ×3 (03:26→10:52)
[2017-09-08] MEDS: GABAPENTIN 300 MG CAPSULE PO SCH (05:47)
[2017-09-08] MEDS: METFORMIN HCL 500 MG TABLET PO SCH (08:16)
[2017-09-08 08:51] VITALS: BP 108/76
[2017-09-08] MEDS: LACTOBACILLUS ACIDOPHILUS 250 MG TAB PO SCH (10:05)
[2017-09-08] MEDS: NAPROXEN 375 MG TABLET PO SCH (10:05)
[2017-09-08] MEDS: RIFAMPIN 300 MG CAPSULE PO SCH (10:05)
[2017-09-08] MEDS: NORMAL SALINE 10 ML SDV (SCHEDULED) IV SCH (10:52)
--- NOTE | 2017-09-08 17:26 | PDOC DISCHARGE SUMMARY ---
General - Admit/Disc Date/PCP Admission Date/Primary Care Provider: 07/27/17 16:32 Discharge Date: 09/08/17 - Discharge Diagnosis (1) Discitis of lumbar region Is this a current diagnosis for this admission?: Yes Summary: He is now status post 6 weeks of IV antibiotics per ID recommendations. Because of the high likelihood of noncompliance, recurrent nature of his infection (he had a recent episode of endocarditis) we decided to provide his treatment as an inpatient. (2) Diabetes mellitus type 2 in nonobese Is this a current diagnosis for this admission?: Yes Summary: Stable on home medications (3) IVDU (intravenous drug user) Is this a current diagnosis for this admission?: Yes Summary: Probably the source of his infections (4) Polysubstance abuse Is this a current diagnosis for this admission?: Yes (5) Right knee pain Is this a current diagnosis for this admission?: Yes Summary: Degenerative joint disease of the right knee. Treated with naproxen, ice bag, elevation. Evaluated by orthopedics and not felt to require any further intervention (6) Conjunctivitis Is this a current diagnosis for this admission?: Yes Summary: Treated with gentamicin drops for a week - Additional Information Discharge Diet: Regular Discharge Activity: Activity As Tolerated, Balance Activity w/Rest, Slowly Increase Activity Prescriptions: Gabapentin [Neurontin 300 mg Capsule] 600 mg PO Q8 #90 capsule Metformin HCl [Glucophage 500 mg Tablet] 500 mg PO BIDBS #60 tablet Naproxen [Naprosyn 375 mg Tablet] 375 mg PO BIDBS PRN #30 tablet PRN Reason: Knee pain Home Medications: Gabapentin [Neurontin 300 mg Capsule] 600 mg PO Q8 #90 capsule 09/08/17 Metformin HCl [Glucophage 500 mg Tablet] 500 mg PO BIDBS #60 tablet 09/08/17 Naproxen [Naprosyn 375 mg Tablet] 375 mg PO BIDBS PRN #30 tablet 09/08/17 History of Present Illness Patient complains of: Back pain. Transferred from [facility] History of Present Illness: SUSHIL JARA is a 47 year old male who had previously been treated as an inpatient for MRSA tricuspid endocarditis. Discharged 07/02. Re-presented to [facility] with intractable back pain found to have a T6/T7 discitis and epidural abscess status post aspiration. Hospital Course Hospital Course: He was initially treated with vancomycin and rifampin. Infectious disease recommended changing this to Rifampin and cefazolin. TTE showed no vegetation. Since that time we have been treating him with antibiotics. He has had minimal back pain, he has been highly mobile and pain in his right knee has bothered him more. That has been dealt with most effectively with elevation, ice, naproxen. He has now completed his course and is rather anxious to go home. Physical Exam Vital Signs: Temp Pulse Resp BP Pulse Ox 97.4 F 86 16 108/76 95 09/08/17 11:55 09/08/17 11:55 09/08/17 11:55 09/08/17 11:55 09/08/17 11:55 Intake & Output 09/07/17 09/08/17 09/09/17 06:59 06:59 06:59 Intake Total 2511 1731 Balance 2511 1731 Weight 148 lb 12.992 oz 151 lb 3.794 oz General appearance: PRESENT: no acute distress Respiratory exam: PRESENT: clear to auscultation antonio Cardiovascular exam: PRESENT: RRR GI/Abdominal exam: PRESENT: soft Neurological exam: PRESENT: alert Psychiatric exam: PRESENT: appropriate affect Skin exam: PRESENT: dry, warm Results Laboratory Results: 09/06/17 06:45 09/06/17 06:45 Impressions: Thoracic Spine X-Ray 08/19/17 00:00 IMPRESSION: Known discitis and osteomyelitis T6-7. Qualifiers - * PATIENT BEING DISCHARGED WITH ANY OF THE FOLLOWING DIAGNOSIS: No
--- NOTE | 2017-09-13 11:10 | PDOC H&P ---
History of Present Illness Admission Date/PCP: 07/27/17 16:32 Patient complains of: Transferred from [facility] for continued care. History of Present Illness: SUSHIL JARA is a 47 year old male transferred from [facility] for continued care for his Osteomyelitis of T6/T7 and epidural abscess s/p aspiration. Patient has a hx of IVDU and was diagnosed with MSSA tricuspid Endocarditis in 04/2017 and recieved 6 weeks of IV treatment in [place], discharged in 06/2017. Patient states that he initially felt well. He was staying with a friend and denies any illicit drug use. Noticed back pain that intensified until his re-evaluation here in [place] on 07/21. Blood cultures grew MSSA again, showing possible relapse of initial infection. He was started on Vancomycin and Rifampin therapy. Would anticipate completing a minimum of 6 weeks inpatient treatment. Patient has a PICC line inplace to facilitate this. MRI of thoracic spine on 07/22/2017 showed T6-T7 spondylodiscitis aeith paraspinal and epidural phlegmon as well as small left dorsal epidural abscess. CT guided bone biopsy was obtained at [facility] on 07/22, path results just showed inflammatory cells. Patient also has a chronic right knee swelling, with a hx of septic joint. Patient complains of poor back pain control. He is ambulatory. He has a PMH of DMII, Bipolar dissorder and anxiety described. Past Medical History Cardiac Medical History: Reports: Other - endocarditis, tricuspid valve Pulmonary Medical History: Reports: None Endocrine Medical History: Reports: Diabetes Mellitus Type 2 Musculoskeltal Medical History: Reports: Arthritis Psychiatric Medical History: Denies: Depression Psychiatric History Note: bipolar dissorder, anxiety Past Surgical History Past Surgical History: Reports: Cardiac Catheterization, Orthopedic Surgery - ACL repair, R elbow, L ankle Social History Lives with: Friend Smoking Status: Current Every Day Smoker - describes smoking 1/2 ppd, smoking since age 16 Cigarettes Packs Per Day: 0.2 Frequency of Alcohol Use: None - describes heavier drinking in youth unquantified Hx Recreational Drug Use: Yes - describes meth and heroin use in April, but denies more recent use Drugs: Heroin, Methadone, Other Hx Prescription Drug Abuse: No Past Social History Note: lives with a friend Family History Family History: Arthritis, DM Parental Family History Reviewed: Yes - DM in mother side of family Children Family History Reviewed: No Sibling(s) Family History Reviewed.: No Medication/Allergy Home Medications: No Home Medications 07/21/17 Allergies/Adverse Reactions: Penicillins Allergy (Verified 07/21/17 08:48) Review of Systems Constitutional: ABSENT: chills, fatigue, fever(s), headache(s) Eyes: ABSENT: visual disturbances Ears: ABSENT: hearing changes Nose, Mouth, and Throat: ABSENT: mouth pain, sore throat Cardiovascular: ABSENT: chest pain, dyspnea on exertion, edema, orthropnea, palpitations Respiratory: ABSENT: cough, dyspnea Gastrointestinal: PRESENT: nausea. ABSENT: abdominal pain, vomiting Musculoskeletal: ABSENT: back pain, deformity, joint swelling Integumentary: ABSENT: erythema, rash Neurological: ABSENT: numbness, paresthesias Psychiatric: PRESENT: anxiety, depression Endocrine: ABSENT: cold intolerance, heat intolerance Hematologic/Lymphatic: ABSENT: easy bruising, lymphadenopathy Physical Exam Vital Signs: Temp Pulse Resp BP Pulse Ox 98.4 F 94 17 127/75 H 100 07/27/17 16:47 07/27/17 16:47 07/27/17 16:47 07/27/17 16:47 07/27/17 16:47 Intake & Output 07/26/17 07/27/17 07/28/17 06:59 06:59 06:59 Intake Total 0 Balance 0 Head exam: PRESENT: atraumatic, normocephalic Eye exam: PRESENT: EOMI, PERRLA. ABSENT: conjunctival injection Ear exam: PRESENT: normal external ear exam Mouth exam: PRESENT: moist, neck supple, tongue midline Neck exam: ABSENT: lymphadenopathy, meningismus, tenderness Respiratory exam: ABSENT: crackles, rales, rhonchi, stridor, wheezes Cardiovascular exam: PRESENT: RRR, +S1, +S2. ABSENT: diastolic murmur, systolic murmur Pulses: PRESENT: normal radial pulses Vascular exam: PRESENT: normal capillary refill. ABSENT: pallor GI/Abdominal exam: ABSENT: firm, guarding, mass, rigid Gentrourinary exam: ABSENT: ecchymosis, erythema Extremities exam: PRESENT: joint swelling - right knee swelling. ABSENT: calf tenderness Musculoskeletal exam: PRESENT: full ROM, tenderness - tenderness to palpation of thoracic spine Neurological exam: PRESENT: alert, oriented to person, oriented to place, oriented to time, CN II-XII grossly intact Psychiatric exam: PRESENT: agitated, anxious, depressed. ABSENT: manic Focused psych exam: ABSENT: catatonic, delusional, paranoid Skin exam: ABSENT: dry, erythema, pallor Assessment & Plan - Diagnosis (1) Osteomyelitis Plan: Will continue Vancomycin IV and Rifampin PO. Target a minimum of 6 weeks of therapy. This is an unfortunate possible relapse of his prior MSSA treatment. Will follow up with Repeating his Cardiac Echo. (2) IVDU (intravenous drug user) Plan: Patient will need counseling after discharge. He unfortunately has anxiety and a described bipolar dissorder that could be followed by OP psychiatry (3) Diabetes mellitus type 2 in nonobese Plan: A1C was 6.2% in OSH will give access to SSI, DM diet (4) Back pain Plan: tylenol, percocet, limited Toradol, and lidocaine patch for pain control (5) Endocarditis of tricuspid valve Plan: Completed 6 weeks of antibiotics here in [place] for this ending on 06/28/17. Will repeat Cardiac ECHO, given his persistent bacteremia.
== END 2017-09-08 12:55 | disposition home or self-care (01) | DRG 539 ==
LOC: 5 16:32
PROVIDERS: ADMIT Family Medicine; ATTEND Family Medicine
DX: M46.24 Osteomyelitis of vertebra, thoracic region (principal); G06.1 Intraspinal abscess and granuloma; E46 Unspecified protein-calorie malnutrition; F11.20 Opioid dependence, uncomplicated; F15.10 Other stimulant abuse, uncomplicated; E11.9 Type 2 diabetes mellitus without complications; B95.61 Methicillin susceptible Staphylococcus aureus infection as the cause of diseases classified elsewhere; M17.11 Unilateral primary osteoarthritis, right knee; H10.31 Unspecified acute conjunctivitis, right eye; G89.29 Other chronic pain; F41.9 Anxiety disorder, unspecified; M25.561 Pain in right knee; F31.9 Bipolar disorder, unspecified; M19.90 Unspecified osteoarthritis, unspecified site; F17.210 Nicotine dependence, cigarettes, uncomplicated; D50.9 Iron deficiency anemia, unspecified; M46.44 Discitis, unspecified, thoracic region; Z79.2 Long term (current) use of antibiotics; Z79.84 Long term (current) use of oral hypoglycemic drugs; Z83.3 Family history of diabetes mellitus; Z88.0 Allergy status to penicillin; Z68.22 Body mass index [BMI] 22.0-22.9, adult; Z71.51 Drug abuse counseling and surveillance of drug abuser; Z95.9 Presence of cardiac and vascular implant and graft, unspecified; Z86.79 Personal history of other diseases of the circulatory system; Z86.59 Personal history of other mental and behavioral disorders
CPT/HCPCS: 36415; 72070; 80048; 80053; 80069; 80202; 82565; 82962; 83735; 84100; 85025; 85027; 86140; 87040; 93306; J0690; J1642; J1815; J1885; J2997; J3010; J3370; J3490; J7060